=== PATIENT | female | born 1935 | race Asian ===

== ENCOUNTER 2019-06-10 09:54 | Inpatient (IN) | payer MEDICARE, OTHER ==
[~2019-06-10] VITALS: Ht 160 cm; Wt 55.2 kg
[2019-06-10] VITALS (33 sets, daily range): BP systolic 47–139; BP diastolic 22–79; PULSE 95–123; RESP 17–37; Ht 160 cm; Wt 55.2 kg
[~2019-06-10 09:54] MED LIST: ATOR20TA38 PO; DONE5TAB53 PO; PANT40TA3 PO; SAXA1TBM PO
[2019-06-10] MEDS ORDERED: CEFEPIME 2GM/50 ML (PMX) 50 ML IVPB STA (09:56)
[2019-06-10] MEDS ORDERED: SODIUM CHLORIDE 0.9% 1L BAG IV* STA (09:56)
[2019-06-10] MEDS ORDERED: IPRATROPIUM (NEB) 0.5 MG/2.5 ML AMP INH STA (09:57)
[2019-06-10] MEDS ORDERED: LEVALBUTEROL (NEB) 1.25 MG/0.5 ML AMP INH STA (09:57)
[2019-06-10] MEDS ORDERED: VANCOMYCIN 1 GM (PMX) 250 ML IVPB ONE (10:00)
[2019-06-10] MEDS ORDERED: ACETAMINOPHEN 650 MG SUPP PR ONE (11:00)
[2019-06-10] MEDS ORDERED: INSULIN LISPRO 100 UNIT/ML VIAL SC STA (11:05)
[2019-06-10] MEDS ORDERED: NA BICARBONATE 8.4% 50 ML SYG IV STA (11:05)
[2019-06-10] MEDS ORDERED: CA CHLORIDE 10% 10 ML SYRINGE IV STA (11:05)
[2019-06-10] MEDS ORDERED: morphine 2 MG INJ IV PRN (12:00)
[2019-06-10] MEDS ORDERED: NACL 0.9% 3 ML SYG IV SCH (12:00)
[2019-06-10] MEDS ORDERED: HYDROCODONE/APAP (5/325) TAB PO PRN (12:00)
[2019-06-10] MEDS ORDERED: ONDANSETRON 4 MG INJ IV PRN ×2 (12:00→13:00)
[2019-06-10] MEDS ORDERED: ASPIRIN 325 MG TAB PEG ONE (12:00)
[2019-06-10] MEDS ORDERED: ACETAMINOPHEN 650MG/20.3ML CUP NGT ONE (12:00)
[2019-06-10] MEDS: DOCUSATE SODIUM 100 MG CAP PO SCH (12:00)
[2019-06-10] MEDS ORDERED: VANCOMYCIN IV PER PHARMACY XX SCH (12:30)
--- NOTE | 2019-06-10 12:30 | CONS ---
Assessment/Plan Assessment/Plan Assessment/Plan (Daily) 1. acute Hypernatremia due to severe dehydration 2. acute Hyperkalemia due to FLOYD 3. acute kidney injury on CKD III due to ATN from sepsis and Prerenal azotemia 4 . Septic shock due to multifocal PNA 5. Acute hypoxic respiratory failure due to PNA and Septic shock On BIPAP 6. H/O severe dementia 7. H/O HTN 8. H/O HL 9. SNF resident 10. acute on chronic encephalopathy 11 h/o Dysphagia S/p G tube placement Plan: Seen in ED, Currently on BIPAP Continue IVF NS at 70 cc/hr if Na continues to rise then we will change it to 1/2 NS s/p IV abx cefepime and vancomycin in ED< currenlty on IV abx zosyn, Renally dose all abx and monitor electrolytes BIPAP as per pulmonary S/p Rx for hyperkalemia in ED, will monitor electorlytes and replace as needed pt is currenlty full Code, consider palliative care consult to discuss goals of care Thanks for consultation , will follow up Consultation Date/Type/Reason Admit Date/Time 06/10/2019 Date of Consultation: Jun 10, 2019 Type of Consult NEPHROLOGY Reason for Consultation Hyperkalemia, Hypernatremia, acute kidney injury Requesting Provider: MALINI GOMEZ Date/Time of Note DATE: 06/10/19 TIME: 12:30 Hx of Present Illness 84 Romansh speaking Female with a past medical history significant for end-stage dementia, being nonverbal, bedridden, hypertension, A. fib, COPD, diabetes me llitus, dyslipidemia who presents to [facility] from care home facility for worsening shortness of breath. Patient is baseline encephalopathic and being nonverbal according to family. Pt required BIPAP for acute hypoxic respiratory failure. very limited History is availabel from Patient and family . Subjective hx not possible: pt non-verbal, pt critical status Past Medical History Medical History: high cholesterol, hypertension, other (Dementia, Atrial fibrillation ) Home Meds Reported Medications Olanzapine* (Zyprexa*) 5 Mg Tablet, 5 MG GTB DAILY, #30 TAB 06/10/19 Polyethylene Glycol* (Miralax*) 17 Gm Powd.pack, 17 GM GTB DAILY, #30 PACKET 06/10/19 Benazepril Hcl* (Benazepril Hcl*) 10 Mg Tablet, 10 MG GTB DAILY, #30 TAB HOLD IF SBP<110 OR HR<60 06/10/19 Atorvastatin Calcium* (Atorvastatin Calcium*) 20 Mg Tablet, 20 MG GTB QHS, #30 TAB 06/10/19 Insulin Detemir (Levemir Flextouch) 100 Unit/1 Ml Insuln.pen, 8 UNIT SQ QHS, EA 06/10/19 Levetiracetam* (Keppra*) 500 Mg/5 Ml Solution, 5 ML GTB BID, BOTTLE 06/10/19 Fluvoxamine Maleate* (Luvox*) 50 Mg Tab, 25 MG GTB DAILY, TAB 06/10/19 Aspirin* (Aspirin* Chew) 81 Mg Tab.chew, 81 MG GTB DAILY, TAB.CHEW 06/10/19 Amiodarone Hcl* (Amiodarone Hcl*) 100 Mg Tablet, 100 MG GTB DAILY, #30 TAB HOLD FOR SBP<110 OR HR<60 06/10/19 Acetaminophen* (Acetaminophen* Susp) 325 Mg/10.15 Ml Solution, 20 ML GTB Q6H PRN for PAIN LEVEL 1-10/10, ML AND FEVER>101F 06/10/19 Discontinued Reported Medications Aspirin* (Aspirin* EC) 81 Mg Tablet.dr, 81 MG GTB DAILY, TAB 06/10/19 Medications Current Medications Sodium Chloride 1,000 ml @ 50 mls/hr Q20H IV ; Start 06/10/19 at 11:58; Stop 06/11/19 at 07:57 IV Flush (NS 3 ml) 3 ml PER PROTOCOL IV ; Start 06/10/19 at 12:00 Ondansetron HCl (Zofran Inj) 4 mg Q6H PRN IV NAUSEA/VOMITING; Start 06/10/19 at 12:00 Aspirin (Aspirin) 81 mg DAILY PEG ; Start 06/11/19 at 09:00 Acetaminophen (Tylenol Tab) 650 mg Q6H PRN PO .PAIN 1-3 OR TEMP; Start 06/10/19 at 12:00 Acetaminophen/ Hydrocodone Bitart ([place] (5/325)) 1 tab Q6H PRN PO .PAIN 4-6; Start 06/10/19 at 12:00 Morphine Sulfate (morphine) 2 mg Q4H PRN IV .PAIN 7-10; Start 06/10/19 at 12:00 Docusate Sodium (Colace) 100 mg Q12H PO ; Start 06/10/19 at 12:00 Heparin Sodium (Porcine) (Heparin (5000 Units/1ml)) 5,000 unit Q8 SC ; Start 06/10/19 at 14:00 Vancomycin HCl (Vanco Iv Per Pharmacy) VANCOMYCIN PER PHARMACY PER PROTOCOL XX ; Start 06/10/19 at 12:30; Status UNV Piperacillin Sod/ Tazobactam Sod 100 ml @ 200 mls/hr Q6 IVPB ; Start 06/10/19 at 18:00; Status UNV Miscellaneous Information (* Miscellaneous Pharmacy Order) Discontinue current oral sulfonylur... ONCE ONCE XX ; Start 06/10/19 at 12:30; Stop 06/10/19 at 12:31; Status UNV Diagnostic Test (Pha) (Accu-Chek) 1 ea 02 XX ; Start 06/11/19 at 02:00 Miscellaneous Information (* Miscellaneous Pharmacy Order) HYPOGLYCEMIA PROTOCOL w... ONCE ONCE XX ; Start 06/10/19 at 12:30; Stop 06/10/19 at 12:31; Status UNV Insulin Aspart (Novolog Insulin Pen) NOVOLOG *MILD* ALGORITHM Q4 SC ; Start 06/10/19 at 13:00; Status UNV Miscellaneous Information (* Miscellaneous Pharmacy Order) Discontinue all previ... ONCE ONCE XX ; Start 06/10/19 at 12:30; Stop 06/10/19 at 12:31; Status UNV Amiodarone HCl (Cordarone) 100 mg DAILY GTB ; Start 06/11/19 at 09:00; Status UNV Atorvastatin Calcium (Lipitor) 20 mg QHS GTB ; Start 06/10/19 at 21:00 Benazepril HCl (Lotensin) 10 mg DAILY GTB ; Start 06/11/19 at 09:00; Status UNV Fluvoxamine Maleate (Luvox) 25 mg DAILY GTB ; Start 06/11/19 at 09:00; Status UNV Levetiracetam (Keppra Liquid) 500 mg BID GTB ; Start 06/10/19 at 21:00; Status UNV Olanzapine (Zyprexa) 5 mg DAILY GTB ; Start 06/11/19 at 09:00; Status UNV Polyethylene Glycol (Miralax) 17 gm DAILY GTB ; Start 06/11/19 at 09:00 Allergies: Coded Allergies: No Known Allergy (Unverified , 06/10/19) Past Surgical History Past Surgical Hx: other (not available ) Family History Significant Family History: no pertinent family hx Social History Alcohol Use: none Drug Use: none Exam/Review of Systems Exam Vitals Vital Signs Date Temp Pulse Resp B/P (MAP) Pulse Ox O2 O2 Flow FiO2 Time Delivery Rate 06/10/19 100.0 12:18 06/10/19 132 23 113/72 99 BIPAP 11:56 (86) 06/10/19 100 10:54 06/10/19 15 10:25 Exam General: moderate distress on BIPAP Mentation: Patient is arousable but not oriented, not alert Eyes: MARKO, EOMI Neck: Supple, no JVD, no LAD Respiratory: Coarse to auscultation bilaterally, no wheezing Cardiovascular: S1 S2 tachycardia, no murmur Gastrointestinal: soft, NT, ND, Thin abdomen, BS+ Neurological: Moves all extremities spontaneously, only to noxious stimuli, no purposeful movement coordinated movement witnessed Skin: No new skin lesions, PEG tube site present Results Result Diagram: 06/10/19 1000 06/10/19 1000 Results 24hrs Laboratory Tests Test 06/10/19 09:56 06/10/19 10:00 06/10/19 10:19 06/10/19 11:42 Blood Gas Blood arterial Specimen Source Arterial Blood 06/10/2019 10:38: Date Drawn 45 AM Arterial Blood pH 7.497 H (Temp corrected) Arterial Blood 29.5 L pCO2 (Temp correct) Arterial Blood 71.6 L pO2 (Temp corrected) Arterial Blood 22.3 HCO3 Arterial Blood 0.2 Base Excess Arterial Blood 94.6 L Oxygen Saturation James Test N/A Arterial Blood Right Brachial Gas Puncture Site Arterial 0.6 Blood Carboxyhemo globin Arterial Blood 0.2 Methemoglobin Blood Gas A-a O2 611.9 H Differential Oxyhemoglobin 93.8 Percent Blood Gas 37.0 Temperature Blood Gas 20.0 Respiration Rate Blood Gas Actual 44 Respiration Rate Blood Gas MASK - BIPAP Modality FiO2 100.0 Blood Gas 10 Pressure Support Blood Gas 15/5 IPAP/EPAP Ratio Blood Gas TM Notified Whom Blood Gas 06/10/2019 10:46: Notified Time 46 AM White Blood Count 20.5 H Red Blood Count 5.03 Hemoglobin 15.2 Hematocrit 49.3 H Mean Corpuscular 98.0 Volume Mean Corpuscular 30.2 Hemoglobin Mean Corpuscular 30.8 L Hemoglobin Concen t Red Cell 16.2 H Distribution Width Platelet Count 234 Mean Platelet 12.1 H Volume Immature 0.600 H Granulocytes % Neutrophils % 88.0 H Lymphocytes % 5.2 L Monocytes % 5.8 Eosinophils % 0.0 Basophils % 0.4 Nucleated Red 0.0 Blood Cells % Immature 0.120 H Granulocytes # Neutrophils # 18.0 H Lymphocytes # 1.1 Monocytes # 1.2 H Eosinophils # 0.0 Basophils # 0.1 Nucleated Red 0.0 Blood Cells # Prothrombin Time 14.6 Prothrombin Time 1.1 Ratio INR International 1.13 Normalized Ratio Activated 25.2 Partial Thrombopl ast Time Sodium Level 152 H Potassium Level 5.2 H Chloride Level 114 H Carbon Dioxide 25 Level Anion Gap 13 Blood Urea 82 H Nitrogen Creatinine 1.08 H Est Glomerular Filtrat Rate mL/min Glucose Level 621 *H Calcium Level 9.8 Total Bilirubin 1.0 Direct Bilirubin 0.00 Indirect 1.0 Bilirubin Aspartate Amino 21 Transf (AST/SGOT) Alanine 8 L Aminotransferase (ALT/SGPT) Alkaline 76 Phosphatase Troponin I 0.137 *H B-Type 5960 H Natriuretic Peptide Total Protein 7.2 Albumin 3.6 Globulin 3.60 H Albumin/Globulin 1.00 Ratio Amylase Level 95 Lipase 148 POC Venous 4.3 *H Lactate Bedside Glucose 542 *H Medications Medication Current Medications Sodium Chloride 1,000 ml @ 50 mls/hr Q20H IV ; Start 06/10/19 at 11:58; Stop 06/11/19 at 07:57 IV Flush (NS 3 ml) 3 ml PER PROTOCOL IV ; Start 06/10/19 at 12:00 Ondansetron HCl (Zofran Inj) 4 mg Q6H PRN IV NAUSEA/VOMITING; Start 06/10/19 at 12:00 Aspirin (Aspirin) 81 mg DAILY PEG ; Start 06/11/19 at 09:00 Acetaminophen (Tylenol Tab) 650 mg Q6H PRN PO .PAIN 1-3 OR TEMP; Start 06/10/19 at 12:00 Acetaminophen/ Hydrocodone Bitart ([place] (5/325)) 1 tab Q6H PRN PO .PAIN 4-6; Start 06/10/19 at 12:00 Morphine Sulfate (morphine) 2 mg Q4H PRN IV .PAIN 7-10; Start 06/10/19 at 12:00 Docusate Sodium (Colace) 100 mg Q12H PO ; Start 06/10/19 at 12:00 Heparin Sodium (Porcine) (Heparin (5000 Units/1ml)) 5,000 unit Q8 SC ; Start 06/10/19 at 14:00 Vancomycin HCl (Vanco Iv Per Pharmacy) VANCOMYCIN PER PHARMACY PER PROTOCOL XX ; Start 06/10/19 at 12:30; Status UNV Piperacillin Sod/ Tazobactam Sod 100 ml @ 200 mls/hr Q6 IVPB ; Start 06/10/19 at 18:00; Status UNV Miscellaneous Information (* Miscellaneous Pharmacy Order) Discontinue current oral sulfonylur... ONCE ONCE XX ; Start 06/10/19 at 12:30; Stop 06/10/19 at 12 :31; Status UNV Diagnostic Test (Pha) (Accu-Chek) 1 ea 02 XX ; Start 06/11/19 at 02:00 Miscellaneous Information (* Miscellaneous Pharmacy Order) HYPOGLYCEMIA PROTOCOL w... ONCE ONCE XX ; Start 06/10/19 at 12:30; Stop 06/10/19 at 12:31; Status UNV Insulin Aspart (Novolog Insulin Pen) NOVOLOG *MILD* ALGORITHM Q4 SC ; Start 06/10/19 at 13:00; Status UNV Miscellaneous Information (* Miscellaneous Pharmacy Order) Discontinue all previ... ONCE ONCE XX ; Start 06/10/19 at 12:30; Stop 06/10/19 at 12:31; Status UNV Amiodarone HCl (Cordarone) 100 mg DAILY GTB ; Start 06/11/19 at 09:00; Status UNV Atorvastatin Calcium (Lipitor) 20 mg QHS GTB ; Start 06/10/19 at 21:00 Benazepril HCl (Lotensin) 10 mg DAILY GTB ; Start 06/11/19 at 09:00; Status UNV Fluvoxamine Maleate (Luvox) 25 mg DAILY GTB ; Start 06/11/19 at 09:00; Status UNV Levetiracetam (Keppra Liquid) 500 mg BID GTB ; Start 06/10/19 at 21:00; Status UNV Olanzapine (Zyprexa) 5 mg DAILY GTB ; Start 06/11/19 at 09:00; Status UNV Polyethylene Glycol (Miralax) 17 gm DAILY GTB ; Start 06/11/19 at 09:00 GERMAN FELIX MD Jun 10, 2019 12:30
[2019-06-10] MEDS ORDERED: ACETAMINOPHEN 325 MG TAB PO PRN (13:00)
[2019-06-10] MEDS ORDERED: LIDOCAINE 1% (MPF) 5 ML VIAL SC ONE (13:00)
[2019-06-10] MEDS ORDERED: INSULIN ASPART [NOVOLOG] 3 ML PEN SC SCH (13:00)
[2019-06-10] MEDS ORDERED: GLUCOSE GEL 15 GRAM TUBE BUCCAL PRN (14:00)
[2019-06-10] MEDS ORDERED: GLUCOSE GEL 15 GRAM TUBE PO PRN ×2 (14:00)
[2019-06-10] MEDS ORDERED: GLUCAGON 1 MG INJ IM PRN (14:00)
[2019-06-10] MEDS ORDERED: HEPARIN 5,000 UNIT/1 ML VIAL SC SCH (14:00)
[2019-06-10] MEDS ORDERED: INSULIN REGULAR, HUMAN 100 UNIT/1 ML 3ML VIAL IV STA (14:14)
[2019-06-10] MEDS ORDERED: NORepinephrine 8MG/250 ML (PMX 250 ML IV STA (14:29)
--- NOTE | 2019-06-10 14:29 | ERD ---
ER Documentation Chief Complaint Chief Complaint low o2 sat at facility. warm to touch; tachycardic HPI This is an 84-year-old female that presented to the emergency department from [facility]. 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 EMS stated that at the facility they noticed that the patient appeared to have a sudden onset of difficulty in breathing. She felt warm to the touch. She was tachycardic. She was on a continuous pulse oximeter that indicated hypoxia at 80%. The patient is a full code. The patient has a past medical history of hyper pressure and also is on Keppra. There is no seizure activity according to nursing staff. ROS All systems reviewed and are negative except as per history of present illness. Medications Home Meds Reported Medications Olanzapine* (Zyprexa*) 5 Mg Tablet, 5 MG GTB DAILY, #30 TAB 06/10/19 Polyethylene Glycol* (Miralax*) 17 Gm Powd.pack, 17 GM GTB DAILY, #30 PACKET 06/10/19 Benazepril Hcl* (Benazepril Hcl*) 10 Mg Tablet, 10 MG GTB DAILY, #30 TAB HOLD IF SBP<110 OR HR<60 06/10/19 Atorvastatin Calcium* (Atorvastatin Calcium*) 20 Mg Tablet, 20 MG GTB QHS, #30 TAB 06/10/19 Insulin Detemir (Levemir Flextouch) 100 Unit/1 Ml Insuln.pen, 8 UNIT SQ QHS, EA 06/10/19 Levetiracetam* (Keppra*) 500 Mg/5 Ml Solution, 5 ML GTB BID, BOTTLE 06/10/19 Fluvoxamine Maleate* (Luvox*) 50 Mg Tab, 25 MG GTB DAILY, TAB 06/10/19 Aspirin* (Aspirin* Chew) 81 Mg Tab.chew, 81 MG GTB DAILY, TAB.CHEW 06/10/19 Amiodarone Hcl* (Amiodarone Hcl*) 100 Mg Tablet, 100 MG GTB DAILY, #30 TAB HOLD FOR SBP<110 OR HR<60 06/10/19 Acetaminophen* (Acetaminophen* Susp) 325 Mg/10.15 Ml Solution, 20 ML GTB Q6H PRN for PAIN LEVEL 1-10/10, ML AND FEVER>101F 06/10/19 Discontinued Reported Medications Aspirin* (Aspirin* EC) 81 Mg Tablet.dr, 81 MG GTB DAILY, TAB 06/10/19 Allergies Allergies: Coded Allergies: No Known Allergy (Unverified , 06/10/19) Physical Exam Vitals Vital Signs Date Temp Pulse Resp B/P (MAP) Pulse Ox O2 O2 Flow FiO2 Time Delivery Rate 06/10/19 112 26 82/60 (67) 97 BIPAP 13:45 06/10/19 99.8 114 20 103/71 100 BIPAP 13:30 (82) 06/10/19 114 100 100 13:04 06/10/19 100.7 121 26 100/70 99 BIPAP 12:30 (80) 06/10/19 100.0 12:18 06/10/19 132 23 113/72 99 BIPAP 11:56 (86) 06/10/19 126 38 99 100 10:54 06/10/19 129 32 88/65 (73) 95 BIPAP 10:34 06/10/19 102.1 130 33 92/67 (75) 95 10:25 06/10/19 Bag Valve 15 10:25 Mask Physical Exam Constitutional:Well-developed. Cachectic. HEENT:Normocephalic. Atraumatic.Pupils were 2mm equal round reactive to light. Moist mucous membranes.No tonsillar exudates. Neck: No nuchal rigidity. No lymphadenopathy. No posterior cervical spine tenderness or step-offs. Respiratory: Patient using accessory muscles of respiration. Mild wheezing bilaterally. Decreased breath sounds in the right lower lung base. Cardiovascular: Tachycardic with regular rhythm.No murmurs. No rubs were appreciated.S1, S2 normal. Distal pulses are palpable 2+ bilaterally. GI: Abdomen was soft. Nontender with PEG tube in place. Non Distended. No pulsatile abdominal masses or bruits. No rebound. No guarding. Bowel sounds were present and normal. Muscle skeletal: Muscle atrophy of the bilateral lower extremities with paralysis of the lower extremity Skin: Warm to the touch. No petechia, no purpura. No lesions on the palms or the soles of the feet. No maculopapular rash. NEURO: Patient does not withdraw to pain. Patient opens eyes in response to pain. Patient is nonverbal. Patient is bedbound. According to nursing staff this is the patient's baseline mental status. Result Diagram: 06/10/19 1000 06/10/19 1000 Results 24 hrs Laboratory Tests Test 06/10/19 09:56 06/10/19 10:00 06/10/19 10:19 06/10/19 11:42 Blood Gas Blood arterial Specimen Source Arterial Blood 06/10/2019 10:38: Date Drawn 45 AM Arterial Blood 7.497 pH (Temp corrected) Arterial Blood 29.5 mmhg pCO2 (Temp correct) Arterial Blood 71.6 mmHG pO2 (Temp corrected) Arterial Blood 22.3 mmol/L HCO3 Arterial Blood 0.2 mmol/L Base Excess Arterial Blood 94.6 mmHG Oxygen Saturatio n James Test N/A Arterial Blood Right Brachial Gas Puncture Site Arterial 0.6 % Blood Carboxyhem oglobin Arterial Blood 0.2 % Methemoglobin Blood Gas A-a O2 611.9 mmHg Differential Oxyhemoglobin 93.8 % Percent Blood Gas 37.0 C Temperature Blood Gas 20.0 Respiration Rate Blood Gas Actual 44 Respiration Rate Blood Gas MASK - BIPAP Modality FiO2 100.0 % Blood Gas 10 Pressure Support Blood Gas 15/5 IPAP/EPAP Ratio Blood Gas TM Notified Whom Blood Gas 06/10/2019 10:46: Notified Time 46 AM White Blood 20.5 10^3/ul Count Red Blood Count 5.03 10^6/ul Hemoglobin 15.2 g/dl Hematocrit 49.3 % Mean Corpuscular 98.0 fl Volume Mean Corpuscular 30.2 pg Hemoglobin Mean Corpuscular 30.8 g/dl Hemoglobin Christina nt Red Cell 16.2 % Distribution Width Platelet Count 234 10^3/UL Mean Platelet 12.1 fl Volume Immature 0.600 % Granulocytes % Neutrophils % 88.0 % Lymphocytes % 5.2 % Monocytes % 5.8 % Eosinophils % 0.0 % Basophils % 0.4 % Nucleated Red 0.0 /100WBC Blood Cells % Immature 0.120 10^3/ul Granulocytes # Neutrophils # 18.0 10^3/ul Lymphocytes # 1.1 10^3/ul Monocytes # 1.2 10^3/ul Eosinophils # 0.0 10^3/ul Basophils # 0.1 10^3/ul Nucleated Red 0.0 10^3/ul Blood Cells # Prothrombin Time 14.6 Sec Prothrombin Time 1.1 Ratio INR 1.13 International Normalized Ratio Activated 25.2 Sec Partial Thrombop last Time Sodium Level 152 mmol/L Potassium Level 5.2 mmol/L Chloride Level 114 mmol/L Carbon Dioxide 25 mmol/L Level Anion Gap 13 Blood Urea 82 mg/dl Nitrogen Creatinine 1.08 mg/dl Est Glomerular mL/min Filtrat Rate mL/min Glucose Level 621 mg/dl Calcium Level 9.8 mg/dl Total Bilirubin 1.0 mg/dl Direct Bilirubin 0.00 mg/dl Indirect 1.0 mg/dl Bilirubin Aspartate Amino 21 IU/L Transf (AST/SGOT ) Alanine 8 IU/L Aminotransferase (ALT/SGPT) Alkaline 76 IU/L Phosphatase Troponin I 0.137 ng/ml B-Type 5960 PG/ML Natriuretic Peptide Total Protein 7.2 g/dl Albumin 3.6 g/dl Globulin 3.60 g/dl Albumin/Globulin 1.00 Ratio Amylase Level 95 U/L Lipase 148 U/L POC Venous 4.3 mmol/L Lactate Bedside Glucose 542 mg/dL Test 06/10/19 12:40 Urine Color YELLOW Urine Clarity SLIGHTLY CLOUDY Urine pH 6.0 Urine Specific 1.017 [place] Urine Ketones TRACE mg/dL Urine Nitrite NEGATIVE mg/dL Urine Bilirubin NEGATIVE mg/dL Urine NEGATIVE mg/dL Urobilinogen Urine Leukocyte NEGATIVE [place]/ul Esterase Urine 0 /HPF Microscopic RBC Urine 4 /HPF Microscopic WBC Urine Bacteria FEW /HPF Urine Hemoglobin NEGATIVE mg/dL Urine Glucose 3+ mg/dL Urine Total NEGATIVE mg/dl Protein Lactic Acid 6.9 mmol/L Level Current Medications Medications Dose Sig/Frankie Start Time Status Last (Trade) Ordered Route PRN Stop Time Admin Dose Reason Admin Sodium 2,400 ml BOLUS OVER 2 06/10/19 DC 06/10/19 Chloride HOURS STAT 09:56 10:24 (NS) IV* 06/10/19 09:58 Cefepime HCl 50 ml @ ONCE STAT 06/10/19 DC 06/10/19 100 mls/hr IVPB 09:56 10:23 06/10/19 10:25 Vancomycin 250 ml @ ONCE ONCE 06/10/19 DC 06/10/19 HCl 125 mls/hr IVPB 10:00 11:28 06/10/19 11:59 5 mg ONCE STAT 06/10/19 DC 06/10/19 Levalbuterol INH 09:57 10:53 (Xopenex 06/10/19 09:58 Neb) Ipratropium 1 mg ONCE STAT 06/10/19 DC 06/10/19 [place] INH 09:57 10:53 (Atrovent 06/10/19 09:58 0.02% (Neb)) 650 mg ONCE ONCE 06/10/19 DC 06/10/19 Acetaminophen OR 11:00 12:18 (Tylenol 06/10/19 11:37 Supp) Insulin 10 unit ONCE STAT 06/10/19 DC 06/10/19 Human SC 11:05 11:51 Lispro 06/10/19 11:08 (Humalog) Sodium 50 ml ONCE STAT 06/10/19 DC 06/10/19 Bicarbonate IV 11:05 11:26 (Na Bicarb 06/10/19 11:08 8.4% Syg) Calcium 1,000 mg ONCE STAT 06/10/19 DC 06/10/19 Chloride IV 11:05 11:26 (Ca Chloride 06/10/19 11:08 10% Syg) Aspirin 325 mg ONCE ONCE 06/10/19 DC (Aspirin) PEG 12:00 06/10/19 12:01 650 mg ONCE ONCE 06/10/19 DC Acetaminophen NGT 12:00 (Tylenol 06/10/19 12:01 Liquid) Sodium 1,000 ml @ Q20H IV 06/10/19 Chloride 50 mls/hr 11:58 06/11/19 07:57 IV Flush 3 ml PER 06/10/19 (NS 3 ml) PROTOCOL IV 12:00 Ondansetron 4 mg Q6H PRN 06/10/19 HCl (Zofran IV 12:00 Inj) NAUSEA/VOMITI NG Aspirin 81 mg DAILY PEG 06/11/19 (Aspirin) 09:00 650 mg Q6H PRN 06/10/19 Acetaminophen PO .PAIN 1-3 12:00 (Tylenol OR TEMP Tab) 1 tab Q6H PRN 06/10/19 Acetaminophen PO .PAIN 4-6 12:00 / Hydrocodone Bitart ([place] (5/325)) Morphine 2 mg Q4H PRN 06/10/19 Sulfate IV .PAIN 12:00 (morphine) 7-10 Docusate 100 mg Q12H PO 06/10/19 Sodium 12:00 (Colace) Heparin 5,000 unit Q8 SC 06/10/19 Sodium 14:00 (Porcine) (Heparin (5000 Units/1ml)) Vancomycin VANCOMYCIN PER 06/10/19 HCl (Vanco PER PHARMACY PROTOCOL XX 12:30 Iv Per Pharmacy) Piperacillin 100 ml @ Q6 IVPB 06/10/19 Sod/ 200 mls/hr 18:00 Tazobactam Sod Discontinue ONCE ONCE 06/10/19 DC Miscellaneous current oral XX 12:30 sulfonylur... 06/10/19 13:11 Information (* Miscellaneous Pharmacy Order) Diagnostic 1 ea 02 XX 06/11/19 Test (Pha) 02:00 (Accu-Chek) ONCE ONCE 06/10/19 DC Miscellaneous HYPOGLYCEMIA XX 12:30 PROTOCOL 06/10/19 13:11 Information w... (* Miscellaneous Pharmacy Order) Insulin NOVOLOG Q4 SC 06/10/19 DC Aspart *MILD* 13:00 (Novolog ALGORITHM 06/10/19 13:45 Insulin Pen) Discontinue ONCE ONCE 06/10/19 DC Miscellaneous all previ... XX 12:30 06/10/19 13:11 Information (* Miscellaneous Pharmacy Order) Amiodarone 100 mg DAILY GTB 06/11/19 HCl 09:00 (Cordarone) 20 mg QHS GTB 06/10/19 Atorvastatin 21:00 Calcium (Lipitor) Benazepril 10 mg DAILY GTB 06/11/19 HCl 09:00 (Lotensin) Fluvoxamine 25 mg DAILY GTB 06/11/19 Maleate 09:00 (Luvox) 500 mg BID GTB 06/10/19 Levetiracetam 21:00 (Keppra Liquid) Olanzapine 5 mg DAILY GTB 06/11/19 (Zyprexa) 09:00 17 gm DAILY GTB 06/11/19 Polyethylene 09:00 Glycol (Miralax) Ondansetron 4 mg ER BRIDGE 06/10/19 HCl (Zofran PRN IV 13:00 Inj) NAUSEA/VOMITI 06/11/19 12:59 NG 650 mg ER BRIDGE 06/10/19 Acetaminophen PRN PO 13:00 (Tylenol .MILD PAIN 06/11/19 12:59 Tab) 1-3 OR TEMP Lidocaine 5 ml ONCE ONCE 06/10/19 DC (Xylocaine SC 13:00 1% (Mpf)) 06/10/19 13:01 Insulin (Adult SC Q4 SC 06/10/19 Aspart Insulin - 17:00 (Novolog Mild Insulin Pen) Algorithm)... 1 ea NOTE XX 06/10/19 Miscellaneous 14:00 Information Glucose 15 gm Q15M PRN 06/10/19 (Glutose) PO DECREASED 14:00 GLUCOSE Glucose 22.5 gm Q15M PRN 06/10/19 (Glutose) PO DECREASED 14:00 GLUCOSE Dextrose 25 ml Q15M PRN 06/10/19 (D50w IV DECREASED 14:00 Syringe) GLUCOSE Dextrose 50 ml Q15M PRN 06/10/19 (D50w IV DECREASED 14:00 Syringe) GLUCOSE Glucagon 1 mg Q15M PRN 06/10/19 (Glucagen) IM DECREASED 14:00 GLUCOSE Glucose 15 gm Q15M PRN 06/10/19 (Glutose) BUCCAL 14:00 DECREASED GLUCOSE Procedures/MDM This patient presented to the emergency department febrile and respiratory distress. The patient was immediately placed on a hall monitor continuous pulse oximetry and IV access was severed by nursing staff. The patient was placed on noninvasive mechanical ventilation through BiPAP with improvement of her pulse oximetry to 100%. Her tachycardia had improved and she did receive antipyretics through her PEG tube and cooling measures. On the chest radiograph on reviewed myself into the following: Patchy right basilar and left upper and left lower lobe airspace opacities, suggestive of pneumonia. Patient's infectious symptoms have not stabilized and the patient is at risk of rapid decompensation. The patient will be admitted for careful hydration, antibiotic therapy, and infectious source control. There is no that the antibiotics that have been given initially refer sepsis of unclear etiology. However once the chest radiograph was obtained I did feel the patient's source of infection was from pneumonia. Patient was placed on noninvasive mechanical ventilation with BiPAP and nebulizer treatments for her respiratory distress which significantly improved. She was no longer using accessory muscles of respiration. Severe Sepsis Assessment: Infectious Source: Pneumonia End organ damage indicated by: Lactate > 2.0 mmol/L Hypotension( SBP < 90 or >40 mmHG drop or MAP < 65) Acute Resp Failure (sat < 92% w/o oxygen) Severe Sepsis Managment: Blood Cultures X 2 before broad spectrum antibiotics initiated within 3 hours of recognition. 30 ml/kg NS bolus Completed Initial Lactate: 4.3 Repeat Lactate 6.9 12 Lead EKG tracing ordered and reviewed by myself showed: Sinus tachycardia 131 bpm and no arrhythmia. OR interval normal. QRS duration normal. No ST segment elevation No ST segment depression. No changes consistent with acute ischemia. Septic Shock Assessment (1 hour post 30 ml/kg fluid bolus): Hypotension (SBP < 90 or 40 mmHg drop, MAP < 65): No Lactic acid > 4.0 Yes Perfusion Reassessment for Septic Shock: Temp99.8, Pulse 114, RR 20, BP 103/71 Heart Exam: Tachycardic Lung Exam: No Crackles Capillary Refill: Delayed Peripheral Pulses: Radially present Skin: Normal Hypotensive Treatment (not required for isolated lactic acid elevation): Comfort Care: No Central LIne: PICC line placed Vasopressor started: norepinephrine I considered further perfusion assessment with CVP measurement, SCVO2, bedside ultrasound volume assessment, passive leg raise, trial of further fluid bolus. And preceded with vasopressors. The patient also had acute kidney injury likely prerenal from dehydration. BUN was 82 and creatinine was 1.08. This will be treated with IV fluids as well as her hyponatremia. Her blood glucose was elevated but there is no evidence of ketosis. She received subcutaneous insulin with only minimal improvement with her blood glucose and therefore was given IV insulin. The patient was also hyperkalemic and treated for hyperkalemia given an amp of bicarb calcium chloride Kayexalate and also nebulizer treatments of albuterol. Lasix was not given as the patient was hypotensive. The patient will be admitted to the hospitalist in serious condition to the intensive care under the care of the hospitalist. The patient's troponin was elevated and did receive aspirin through the PEG tube. Dr. Jimenez from cardiology will kindly be consulted. The patient's BNP was elevated however I felt this was more result of her renal failure versus congestive heart failure. Critical Care: Time: 85 minutes Treatments/Evaluations: Close monitoring and treatment of unstable vital signs, cardiorespiratory, and neurologic status, while maintaining tight balance of fluid, respiratory, and cardiac interventions. Time does not include performing any of the above billable procedures. Departure Diagnosis: Primary Impression: Septic shock Additional Impressions: Renal failure (ARF), acute on chronic Acute renal failure type: unspecified Chronic kidney disease stage: unspecified stage Qualified Codes: N17.9 - Acute kidney failure, unspecified; N18.9 - Chronic kidney disease, unspecified Pneumonia Pneumonia type: due to unspecified organism Laterality: bilateral Lung location: upper lobe of lung Qualified Codes: J18.1 - Lobar pneumonia, unspecified organism Hyperglycemia without ketosis Condition: Serious HAWA JOSEPH MD Jun 10, 2019 14:14
[2019-06-10] MEDS ORDERED: NORepinephrine 8MG/250 ML (PMX 250 ML IV SCH (15:00)
[2019-06-10] MEDS: SOD CHLORIDE 0.9% 1,000 ML IV SCH (15:15)
[2019-06-10] MEDS ORDERED: ALBUTEROL/IPRATROPIUM (NEB) 3 ML AMP HHN PRN (15:30)
[2019-06-10] MEDS ORDERED: DEXTROSE 50% 50 ML SYRINGE IV PRN ×2 (15:30)
--- NOTE | 2019-06-10 15:31 | HP ---
Date/Time of Note Date/Time of Note DATE: 06/10/19 TIME: 15:30 Assessment/Plan VTE Prophylaxis Pharmacological prophylaxis: other Lines/Catheters IV Catheter Type (from Nrsg): PICC Line Central line still needed: Yes Urinary Cath still in place: Yes Reason Cath still needed: terminal illness/intractable pain Assessment/Plan Hospital Course History of present illness Patient is a elderly Occitan female with a past medical history significant for end-stage dementia, being nonverbal, bedridden, hypertension, A. fib, COPD, diabetes mellitus, dyslipidemia who presents to [facility] from assisted facility for worsening shortness of breath. Pulse ox initially was 80%, currently patient is on BiPAP. Patient is baseline encephalopathic and being nonverbal according to family. Further HPI cannot be given as patient mental status is severely compromised chronically. Objective Physical exam General: Patient is laying in bed with BiPAP Mentation: Patient is arousable but not oriented, not alert Head: Normocephalic atraumatic Eyes: EOMI, pupils reactive to light Neck: Supple, nontender, midline Respiratory: Coarse to auscultation bilaterally Cardiovascular: Tachycardic rate, no obvious murmurs Gastrointestinal: non-tender to palpation, bowel sounds heard. Neurological: Moves all extremities spontaneously, only to noxious stimuli, no purposeful movement coordinated movement witnessed Skin: No new skin lesions, PEG tube site present Assessment and plan Multifocal pneumonia -Broad-spectrum antibiotic to cover aspiration -Infectious disease consulted -Breathing treatments as needed -Pulmonology also on board Acute hypoxic respiratory failure -Likely secondary to above pneumonia -Pulmonology on board -Continue IV antibiotic Septic shock versus severe sepsis -Patient's blood pressure is borderline after IV bolus, will use pressors as needed -Patient has PICC line -IV antibiotic -Pancultured Non-ST elevated ND -Very mild elevation -Dr. Jimenez, cardiology has been consulted -Continue to trend troponin -Aspirin, statin, Lovenox as needed per cardiology recommendations Electrolyte derangement -Patient likely volume depleted, nephrology on board -IV fluids per nephrology recommendations Chronic dysphasia -Patient has PEG tube -Monitor -Continue tube feeds Hyperglycemia -Insulin drip while in the ICU -Continue fluids as necessary Chronic encephalopathy -We will obtain CT of the brain to ensure no other etiology -Monitor closely Hypertension -Hold hypertensive medications for now due to hypotension A. fib -Continue home meds, cardiology on board dyslipidemia -Continue home meds Mood disorder -Continue home meds Chronic kidney disease -Very mild, nephrology on board Failure to thrive -We will have discussion with patient's family tomorrow on goals of care Disposition -Admit to the ICU for septic shock, continue IV antibiotics and breathing treatments. Result Diagram: 06/10/19 1000 06/10/19 1000 Results 24hrs Laboratory Tests Test 06/10/19 09:56 06/10/19 10:00 06/10/19 10:19 06/10/19 11:42 Blood Gas Blood arterial Specimen Source Arterial Blood 06/10/2019 10:38: Date Drawn 45 AM Arterial Blood pH 7.497 H (Temp corrected) Arterial Blood 29.5 L pCO2 (Temp correct) Arterial Blood 71.6 L pO2 (Temp corrected) Arterial Blood 22.3 HCO3 Arterial Blood 0.2 Base Excess Arterial Blood 94.6 L Oxygen Saturation James Test N/A Arterial Blood Right Brachial Gas Puncture Site Arterial 0.6 Blood Carboxyhemo globin Arterial Blood 0.2 Methemoglobin Blood Gas A-a O2 611.9 H Differential Oxyhemoglobin 93.8 Percent Blood Gas 37.0 Temperature Blood Gas 20.0 Respiration Rate Blood Gas Actual 44 Respiration Rate Blood Gas MASK - BIPAP Modality FiO2 100.0 Blood Gas 10 Pressure Support Blood Gas 15/5 IPAP/EPAP Ratio Blood Gas TM Notified Whom Blood Gas 06/10/2019 10:46: Notified Time 46 AM White Blood Count 20.5 H Red Blood Count 5.03 Hemoglobin 15.2 Hematocrit 49.3 H Mean Corpuscular 98.0 Volume Mean Corpuscular 30.2 Hemoglobin Mean Corpuscular 30.8 L Hemoglobin Concen t Red Cell 16.2 H Distribution Width Platelet Count 234 Mean Platelet 12.1 H Volume Immature 0.600 H Granulocytes % Neutrophils % 88.0 H Lymphocytes % 5.2 L Monocytes % 5.8 Eosinophils % 0.0 Basophils % 0.4 Nucleated Red 0.0 Blood Cells % Immature 0.120 H Granulocytes # Neutrophils # 18.0 H Lymphocytes # 1.1 Monocytes # 1.2 H Eosinophils # 0.0 Basophils # 0.1 Nucleated Red 0.0 Blood Cells # Prothrombin Time 14.6 Prothrombin Time 1.1 Ratio INR International 1.13 Normalized Ratio Activated 25.2 Partial Thrombopl ast Time Sodium Level 152 H Potassium Level 5.2 H Chloride Level 114 H Carbon Dioxide 25 Level Anion Gap 13 Blood Urea 82 H Nitrogen Creatinine 1.08 H Est Glomerular Filtrat Rate mL/min Glucose Level 621 *H Calcium Level 9.8 Total Bilirubin 1.0 Direct Bilirubin 0.00 Indirect 1.0 Bilirubin Aspartate Amino 21 Transf (AST/SGOT) Alanine 8 L Aminotransferase (ALT/SGPT) Alkaline 76 Phosphatase Troponin I 0.137 *H B-Type 5960 H Natriuretic Peptide Total Protein 7.2 Albumin 3.6 Globulin 3.60 H Albumin/Globulin 1.00 Ratio Amylase Level 95 Lipase 148 POC Venous 4.3 *H Lactate Bedside Glucose 542 *H Test 06/10/19 12:40 06/10/19 15:09 Urine Color YELLOW Urine Clarity SLIGHTLY CLOUDY A Urine pH 6.0 Urine Specific 1.017 [place] Urine Ketones TRACE A Urine Nitrite NEGATIVE Urine Bilirubin NEGATIVE Urine NEGATIVE Urobilinogen Urine Leukocyte NEGATIVE Esterase Urine Microscopic 0 RBC Urine Microscopic 4 WBC Urine Bacteria FEW A Urine Hemoglobin NEGATIVE Urine Glucose 3+ H Urine Total NEGATIVE Protein Lactic Acid Level 6.9 *H Bedside Glucose 341 H HPI/ROS Admit Date/Time Admit Date/Time 06/10/2019 PMH/Family/Social Past Medical History Medications Current Medications Sodium Chloride 1,000 ml @ 70 mls/hr [id number] IV Last administered on 06/10/19at 15:15; Admin Dose 70 MLS/HR; Start 06/10/19 at 11:58; Stop 06/11/19 at 17:25 IV Flush (NS 3 ml) 3 ml PER PROTOCOL IV ; Start 06/10/19 at 12:00 Ondansetron HCl (Zofran Inj) 4 mg Q6H PRN IV NAUSEA/VOMITING; Start 06/10/19 at 12:00 Aspirin (Aspirin) 81 mg DAILY PEG ; Start 06/11/19 at 09:00 Acetaminophen (Tylenol Tab) 650 mg Q6H PRN PO .PAIN 1-3 OR TEMP; Start 06/10/19 at 12:00 Acetaminophen/ Hydrocodone Bitart ([place] (5/325)) 1 tab Q6H PRN PO .PAIN 4-6; Start 06/10/19 at 12:00 Morphine Sulfate (morphine) 2 mg Q4H PRN IV .PAIN 7-10; Start 06/10/19 at 12:00 Docusate Sodium (Colace) 100 mg Q12H PO ; Start 06/10/19 at 12:00 Heparin Sodium (Porcine) (Heparin (5000 Units/1ml)) 5,000 unit Q8 SC Last administered on 06/10/19at 15:15; Admin Dose 5,000 UNIT; Start 06/10/19 at 14:00 Vancomycin HCl (Vanco Iv Per Pharmacy) VANCOMYCIN PER PHARMACY PER PROTOCOL XX ; Start 06/10/19 at 12:30 Piperacillin Sod/ Tazobactam Sod 100 ml @ 200 mls/hr Q6 IVPB ; Start 06/10/19 at 18:00 Diagnostic Test (Pha) (Accu-Chek) 1 ea 02 XX ; Start 06/11/19 at 02:00 Amiodarone HCl (Cordarone) 100 mg DAILY GTB ; Start 06/11/19 at 09:00 Atorvastatin Calcium (Lipitor) 20 mg QHS GTB ; Start 06/10/19 at 21:00 Fluvoxamine Maleate (Luvox) 25 mg DAILY GTB ; Start 06/11/19 at 09:00 Levetiracetam (Keppra Liquid) 500 mg BID GTB ; Start 06/10/19 at 21:00 Olanzapine (Zyprexa) 5 mg DAILY GTB ; Start 06/11/19 at 09:00 Polyethylene Glycol (Miralax) 17 gm DAILY GTB ; Start 06/11/19 at 09:00 Ondansetron HCl (Zofran Inj) 4 mg ER BRIDGE PRN IV NAUSEA/VOMITING; Start 05/26 05/14 at 13:00; Stop 06/11/19 at 12:59 Acetaminophen (Tylenol Tab) 650 mg ER BRIDGE PRN PO .MILD PAIN 1-3 OR TEMP; Start 06/10/19 at 13:00; Stop 06/11/19 at 12:59 Miscellaneous Information 1 ea NOTE XX ; Start 06/10/19 at 14:00 Glucose (Glutose) 15 gm Q15M PRN PO DECREASED GLUCOSE; Start 06/10/19 at 14:00 Glucose (Glutose) 22.5 gm Q15M PRN PO DECREASED GLUCOSE; Start 06/10/19 at 14:00 Dextrose (D50w Syringe) 25 ml Q15M PRN IV DECREASED GLUCOSE; Start 06/10/19 at 14:00 Dextrose (D50w Syringe) 50 ml Q15M PRN IV DECREASED GLUCOSE; Start 06/10/19 at 14:00 Glucagon (Glucagen) 1 mg Q15M PRN IM DECREASED GLUCOSE; Start 06/10/19 at 14:00 Glucose (Glutose) 15 gm Q15M PRN BUCCAL DECREASED GLUCOSE; Start 06/10/19 at 14:00 Norepinephrine 250 ml @ 7.5 mls/hr ONCE STAT IV ; Start 06/10/19 at 14:29; Stop 06/11/19 at 23:48 Norepinephrine 250 ml @ 1.875 mls/ hr TITRATE IV ; Start 06/10/19 at 15:00; Status UNV Miscellaneous Information (* Miscellaneous Pharmacy Order) Discontinue all previ... PROTOCOL ONCE XX ; Start 06/10/19 at 15:30; Stop 06/10/19 at 15:31; Status UNV Diagnostic Test (Pha) (Accu-Chek) 1 ea Q1H XX ; Start 06/10/19 at 15:30; Status UNV Insulin Human Regular 100 unit/ Sodium Chloride 100 ml @ 0 mls/hr PER PROTOCOL IV ; Start 06/10/19 at 15:30; Status UNV Miscellaneous Information (* Miscellaneous Pharmacy Order) Treatment of Hypoglycemia: 1.BG 51... Per protocol XX ; Start 06/10/19 at 15:30; Status UNV Dextrose (D50w Syringe) 25 ml Q15M PRN IV .DECREASED GLUCOSE; Start 06/10/19 at 15:30 Dextrose (D50w Syringe) 50 ml Q15M PRN IV .DECREASED GLUCOSE; Start 06/10/19 at 15:30 Albuterol/ Ipratropium (Duoneb) 3 ml Q6HWA RESP THERAPY HHN ; Start 06/10/19 at 20:00; Status UNV Albuterol/ Ipratropium (Duoneb) 3 ml Q2H RESP THERAPY PRN HHN wheezing; Start 06/10/19 at 15:30; Status UNV Budesonide (Pulmicort (Neb)) 0.5 mg BID RESP THERAPY HHN ; Start 06/10/19 at 2 0:00; Status UNV Coded Allergies: No Known Allergy (Unverified , 06/10/19) Social History Smoking Status: Never smoker Exam/Review of Systems Vital Signs Vitals Vital Signs Date Temp Pulse Resp B/P (MAP) Pulse Ox O2 O2 Flow FiO2 Time Delivery Rate 06/10/19 112 26 82/60 (41) 97 BIPAP 13:45 06/10/19 99.8 13:30 06/10/19 100 13:04 06/10/19 15 10:25 MALINI GOMEZ Jun 10, 2019 15:31
[2019-06-10] MEDS: ACCU-CHEK XX SCH ×3 (16:30→18:08)
[2019-06-10] MEDS ORDERED: INSULIN HUMAN REGULAR 100 UNIT in SOD CHLORIDE 0.9% 99 ML IV SCH (17:00)
[2019-06-10] MEDS ORDERED: Insulin NOVOLOG SS MILD Algorithm (NPO/TPN/ENTERAL FEEDS) SC SCH (17:00)
--- NOTE | 2019-06-10 17:13 | CONS ---
DATE OF ADMISSION: 06/10/2019 DATE OF CONSULTATION: 06/10/2019 TYPE OF CONSULTATION: Infectious disease. REASON FOR CONSULTATION: Antibiotic management. HISTORY OF PRESENT ILLNESS: Sixto Roberts is an 84-year-old Yi Cam[place] female who presented to [facility]. The patient is bedbound and aphasic due to probabl e cerebrovascular accident. The patient appeared to have a sudden onset of difficulty in breathing. She felt warm to the touch, was tachycardic. Her pulse ox was 80% and she is a FULL CODE. She is a lso on KeNexsanra. The patient has hypertension, hyperlipidemia, and diabetes mellitus. PHYSICAL EXAMINATION: GENERAL: The patient is cachectic. VITAL SIGNS: Temperature 102.1, pulse of 130, respirations 33, blood pressure 92/67, all consistent with systemic inflammatory response syndrome or SIRS. HEENT: Within normal limits. NECK: Supple. LYMPH NODES: None palpable. CHEST: Decreased breath sounds at the bases. HEART: Tachycardic without murmur or gallop. ABDOMEN: Soft, nontender. She has a G-tube in place. There is no organosplenomegaly or masses. EXTREMITIES: She has muscle atrophy of bilateral lower extremities with paralysis of the lower extre mities. RECTAL AND GENITAL: Deferred. NEUROLOGIC: No focal neurological abnormalities. The patient is nonverbal. ANCILLARY LABORATORY DATA: Her white count on admission was 20.5, H and H of 15.2 and 49.3, platelet count of 234,000. BUN and creatinine was 82/1.08 and her glucose was 621. So she was severely hype rglycemic. Her blood gases showed a pH of 7.497, pO2 of 71, pCO2 of 29.5. IMPRESSION AND PLAN: She was placed on 100% BiPAP. She had an 88% neutrophil count to go with her 2 0.5 white count. Her urine was negative for leukocyte esterase and she only had 4 white cells per hi gh powered field. The patient was placed on vancomycin and cefepime, as she was clearly septic. She was placed on a monitoring specialist. She was placed on BiPAP. Chest x-ray showed patchy right basilar and left upper lobe and left lower lobe airspace opacities suggestive of pneumonia. Patient was admi tted for careful hydration and antibiotic therapy. The patient is to be transferred to the intensive care unit once stabilized in the Emergency Room. I will dictate my findings to the hospitalists. Dictated By: LARISSA FARAH MD, JD/JACQUELINE Conf#: [id number] DID#: [id number] CC: MALINI GOMEZ MD;*End*
[2019-06-10] MEDS: PIPER-TAZO 3.375 GM IV (PMX) 100 ML IVPB SCH (18:23)
--- NOTE | 2019-06-10 18:30 | CONS ---
Assessment/Plan Assessment/Plan Hospital Course (Demo Recall) 84 year old with dementia and multiple medical problems presenting with pneumonia, septic shock, respiratory failure requiring pressors, and possible brain mass, with elevated troponins. Elevated troponin most likely secondary to her acute illness, and not due to a thrombotic AR. Even if this were a thrombotic AR event, she is not a candidate for invasive treatment and revascularization. Therefore, would treat her medically for her underlying acute issues. Will order an echo to assess LVEF, wall motion, and cause of her systolic murmur. Consultation Date/Type/Reason Admit Date/Time 06/10/2019 Date of Consultation: Jun 10, 2019 Type of Consult Cardiology Reason for Consultation elevated troponin Requesting Provider: MALINI GOMEZ Date/Time of Note DATE: 06/10/19 TIME: 18:20 Hx of Present Illness 84 yo with history of dementia, bedbound status, nonverbal, with PEG tube for feeding, presents from her SNF with increased work of breathing. Workup has revealed infiltrates on CXR consistent with pneumonia. Her troponin has also been mildly elevated. Patient cannot provide any meaningful history. She has required levophed as pressor support and is on a bipap mask. Also of note is findings on CT of a possible hemorrhage versus mass. Subjective hx not possible: pt non-verbal Past Medical History Medical History: diabetes, GERD, high cholesterol, hypertension, renal disease, other (dementia, copd, anxiety (per penitentiary notes)) Home Meds Reported Medications Olanzapine* (Zyprexa*) 5 Mg Tablet, 5 MG GTB DAILY, #30 TAB 06/10/19 Polyethylene Glycol* (Miralax*) 17 Gm Powd.pack, 17 GM GTB DAILY, #30 PACKET 06/10/19 Benazepril Hcl* (Benazepril Hcl*) 10 Mg Tablet, 10 MG GTB DAILY, #30 TAB HOLD IF SBP<110 OR HR<60 06/10/19 Atorvastatin Calcium* (Atorvastatin Calcium*) 20 Mg Tablet, 20 MG GTB QHS, #30 TAB 06/10/19 Insulin Detemir (Levemir Flextouch) 100 Unit/1 Ml Insuln.pen, 8 UNIT SQ QHS, EA 06/10/19 Levetiracetam* (Keppra*) 500 Mg/5 Ml Solution, 5 ML GTB BID, BOTTLE 06/10/19 Fluvoxamine Maleate* (Luvox*) 50 Mg Tab, 25 MG GTB DAILY, TAB 06/10/19 Aspirin* (Aspirin* Chew) 81 Mg Tab.chew, 81 MG GTB DAILY, TAB.CHEW 06/10/19 Amiodarone Hcl* (Amiodarone Hcl*) 100 Mg Tablet, 100 MG GTB DAILY, #30 TAB HOLD FOR SBP<110 OR HR<60 06/10/19 Acetaminophen* (Acetaminophen* Susp) 325 Mg/10.15 Ml Solution, 20 ML GTB Q6H PRN for PAIN LEVEL 1-10/10, ML AND FEVER>101F 06/10/19 Discontinued Reported Medications Aspirin* (Aspirin* EC) 81 Mg Tablet.dr, 81 MG GTB DAILY, TAB 06/10/19 Medications Current Medications Sodium Chloride 1,000 ml @ 70 mls/hr [id number] IV Last administered on 06/10/19at 15:15; Admin Dose 70 MLS/HR; Start 06/10/19 at 11:58; Stop 06/11/19 at 17:25 IV Flush (NS 3 ml) 3 ml PER PROTOCOL IV ; Start 06/10/19 at 12:00 Ondansetron HCl (Zofran Inj) 4 mg Q6H PRN IV NAUSEA/VOMITING; Start 06/10/19 at 12:00 Aspirin (Aspirin) 81 mg DAILY PEG ; Start 06/11/19 at 09:00 Acetaminophen (Tylenol Tab) 650 mg Q6H PRN PO .PAIN 1-3 OR TEMP; Start 06/10/19 at 12:00 Acetaminophen/ Hydrocodone Bitart (Polo (5/325)) 1 tab Q6H PRN PO .PAIN 4-6; Start 06/10/19 at 12:00 Morphine Sulfate (morphine) 2 mg Q4H PRN IV .PAIN 7-10; Start 06/10/19 at 12:00 Docusate Sodium (Colace) 100 mg Q12H PO ; Start 06/10/19 at 12:00 Heparin Sodium (Porcine) (Heparin (5000 Units/1ml)) 5,000 unit Q8 SC Last administered on 06/10/19at 15:15; Admin Dose 5,000 UNIT; Start 06/10/19 at 14:00 Vancomycin HCl (Vanco Iv Per Pharmacy) VANCOMYCIN PER PHARMACY PER PROTOCOL XX ; Start 06/10/19 at 12:30 Piperacillin Sod/ Tazobactam Sod 100 ml @ 200 mls/hr Q6 IVPB ; Start 06/10/19 at 18:00 Amiodarone HCl (Cordarone) 100 mg DAILY GTB ; Start 06/11/19 at 09:00 Atorvastatin Calcium (Lipitor) 20 mg QHS GTB ; Start 06/10/19 at 21:00 Levetiracetam (Keppra Liquid) 500 mg BID GTB ; Start 06/10/19 at 21:00 Olanzapine (Zyprexa) 5 mg DAILY GTB ; Start 06/11/19 at 09:00 Polyethylene Glycol (Miralax) 17 gm DAILY GTB ; Start 06/11/19 at 09:00 Ondansetron HCl (Zofran Inj) 4 mg ER BRIDGE PRN IV NAUSEA/VOMITING; Start 06/10/19 at 13:00; Stop 06/11/19 at 12:59 Acetaminophen (Tylenol Tab) 650 mg ER BRIDGE PRN PO .MILD PAIN 1-3 OR TEMP; Start 06/10/19 at 13:00; Stop 06/11/19 at 12:59 Miscellaneous Information 1 ea NOTE XX ; Start 06/10/19 at 14:00 Glucose (Glutose) 15 gm Q15M PRN PO DECREASED GLUCOSE; Start 06/10/19 at 14:00 Glucose (Glutose) 22.5 gm Q15M PRN PO DECREASED GLUCOSE; Start 06/10/19 at 14 :00 Dextrose (D50w Syringe) 25 ml Q15M PRN IV DECREASED GLUCOSE; Start 06/10/19 at 14:00 Dextrose (D50w Syringe) 50 ml Q15M PRN IV DECREASED GLUCOSE; Start 06/10/19 at 14:00 Glucagon (Glucagen) 1 mg Q15M PRN IM DECREASED GLUCOSE; Start 06/10/19 at 14:00 Glucose (Glutose) 15 gm Q15M PRN BUCCAL DECREASED GLUCOSE; Start 06/10/19 at 14:00 Norepinephrine 250 ml @ 7.5 mls/hr ONCE STAT IV Last administered on 06/10/19at 16:01; Admin Dose 7.5 MLS/HR; Start 06/10/19 at 14:29; Stop 06/11/19 at 23:48 Norepinephrine 250 ml @ 1.875 mls/ hr TITRATE IV ; Start 06/10/19 at 15:00 Diagnostic Test (Pha) (Accu-Chek) 1 ea Q1H XX ; Start 06/10/19 at 15:30 Insulin Human Regular 100 unit/ Sodium Chloride 100 ml @ 0 mls/hr PER PROTOCOL IV Last administered on 06/10/19at 18:19; Admin Dose 3 MLS/HR; Start 06/10/19 at 17:00 Miscellaneous Information (* Miscellaneous Pharmacy Order) Treatment of Hypoglycemia: 1.BG 51... Per protocol XX ; Start 06/10/19 at 15:30 Dextrose (D50w Syringe) 25 ml Q15M PRN IV .DECREASED GLUCOSE; Start 06/10/19 at 15:30 Dextrose (D50w Syringe) 50 ml Q15M PRN IV .DECREASED GLUCOSE; Start 06/10/19 at 15:30 Albuterol/ Ipratropium (Duoneb) 3 ml Q6HWA RESP THERAPY HHN ; Start 06/10/19 at 20:00 Albuterol/ Ipratropium (Duoneb) 3 ml Q2H RESP THERAPY PRN HHN wheezing; Start 06/10/19 at 15:30 Budesonide (Pulmicort (Neb)) 0.5 mg BID RESP THERAPY HHN ; Start 06/10/19 at 20:00 IV Flush (NS 10 ml) 10 ml [id number] PRN IV Line Patency; Start 06/10/19 at 16:00 Fluvoxamine Maleate (Fluvoxamine Maleate) 25 mg DAILY GTB ; Start 06/11/19 at 09:00 Allergies: Coded Allergies: No Known Allergy (Unverified , 06/10/19) Past Surgical History Past Surgical Hx: other (PEG tube) Family History Significant Family History: other (unable) Social History unknown Smoking Status: Unknown if ever smoked Exam/Review of Systems Vital Signs Vitals Vital Signs Date Temp Pulse Resp B/P (MAP) Pulse Ox O2 O2 Flow FiO2 Time Delivery Rate 06/10/19 118 22 110/73 97 BIPAP 17:45 (85) 06/10/19 98.9 17:00 06/10/19 100 15:33 06/10/19 15 10:25 Exam Constitutional: other (arousable, frail) Psych: other (nonverbal) Head: normocephalic, atraumatic Eyes: EOMI, nl lids ENMT: nl external ears & nose Neck: No jvd, No bruits Respiratory: diminished breath sounds Cardiovascular: regular rate and rhythm, systolic murmur, other (tachycardic) Gastrointestinal: soft, nl liver, spleen, non-tender Musculoskeletal: nl extremities to inspection Extremities: No normal pulses Neurological: unresponsive Skin: other (feet cool) Labs Result Diagram: 06/10/19 1000 06/10/19 1000 Results 24hrs Laboratory Tests Test 06/10/19 09:56 06/10/19 10:00 06/10/19 10:19 06/10/19 11:42 Blood Gas Blood arterial Specimen Source Arterial Blood 06/10/2019 10:38: Date Drawn 45 AM Arterial Blood pH 7.497 H (Temp corrected) Arterial Blood 29.5 L pCO2 (Temp correct) Arterial Blood 71.6 L pO2 (Temp corrected) Arterial Blood 22.3 HCO3 Arterial Blood 0.2 Base Excess Arterial Blood 94.6 L Oxygen Saturation James Test N/A Arterial Blood Right Brachial Gas Puncture Site Arterial 0.6 Blood Carboxyhemo globin Arterial Blood 0.2 Methemoglobin Blood Gas A-a O2 611.9 H Differential Oxyhemoglobin 93.8 Percent Blood Gas 37.0 Temperature Blood Gas 20.0 Respiration Rate Blood Gas Actual 44 Respiration Rate Blood Gas MASK - BIPAP Modality FiO2 100.0 Blood Gas 10 Pressure Support Blood Gas 15/5 IPAP/EPAP Ratio Blood Gas TM Notified Whom Blood Gas 06/10/2019 10:46: Notified Time 46 AM White Blood Count 20.5 H Red Blood Count 5.03 Hemoglobin 15.2 Hematocrit 49.3 H Mean Corpuscular 98.0 Volume Mean Corpuscular 30.2 Hemoglobin Mean Corpuscular 30.8 L Hemoglobin Concen t Red Cell 16.2 H Distribution Width Platelet Count 234 Mean Platelet 12.1 H Volume Immature 0.600 H Granulocytes % Neutrophils % 88.0 H Lymphocytes % 5.2 L Monocytes % 5.8 Eosinophils % 0.0 Basophils % 0.4 Nucleated Red 0.0 Blood Cells % Immature 0.120 H Granulocytes # Neutrophils # 18.0 H Lymphocytes # 1.1 Monocytes # 1.2 H Eosinophils # 0.0 Basophils # 0.1 Nucleated Red 0.0 Blood Cells # Prothrombin Time 14.6 Prothrombin Time 1.1 Ratio INR International 1.13 Normalized Ratio Activated 25.2 Partial Thrombopl ast Time Sodium Level 152 H Potassium Level 5.2 H Chloride Level 114 H Carbon Dioxide 25 Level Anion Gap 13 Blood Urea 82 H Nitrogen Creatinine 1.08 H Est Glomerular Filtrat Rate mL/min Glucose Level 621 *H Calcium Level 9.8 Total Bilirubin 1.0 Direct Bilirubin 0.00 Indirect 1.0 Bilirubin Aspartate Amino 21 Transf (AST/SGOT) Alanine 8 L Aminotransferase (ALT/SGPT) Alkaline 76 Phosphatase Troponin I 0.137 *H B-Type 5960 H Natriuretic Peptide Total Protein 7.2 Albumin 3.6 Globulin 3.60 H Albumin/Globulin 1.00 Ratio Amylase Level 95 Lipase 148 POC Venous 4.3 *H Lactate Bedside Glucose 542 *H Test 06/10/19 12:40 06/10/19 15:09 06/10/19 16:06 06/10/19 18:08 Urine Color YELLOW Urine Clarity SLIGHTLY CLOUDY A Urine pH 6.0 Urine Specific 1.017 [place] Urine Ketones TRACE A Urine Nitrite NEGATIVE Urine Bilirubin NEGATIVE Urine NEGATIVE Urobilinogen Urine Leukocyte NEGATIVE Esterase Urine Microscopic 0 RBC Urine Microscopic 4 WBC Urine Bacteria FEW A Urine Hemoglobin NEGATIVE Urine Glucose 3+ H Urine Total NEGATIVE Protein Lactic Acid Level 6.9 *H 4.4 *H Bedside Glucose 341 H 241 H Troponin I 0.174 *H Imaging Imaging Ekg shows sinus tachycardia at 131 bpm, left axis deviation, incomplete rbbb Medications Medications Current Medications Sodium Chloride 1,000 ml @ 70 mls/hr [id number] IV Last administered on 06/10/19at 15:15; Admin Dose 70 MLS/HR; Start 06/10/19 at 11:58; Stop 06/11/19 at 17:25 IV Flush (NS 3 ml) 3 ml PER PROTOCOL IV ; Start 06/10/19 at 12:00 Ondansetron HCl (Zofran Inj) 4 mg Q6H PRN IV NAUSEA/VOMITING; Start 06/10/19 at 12:00 Aspirin (Aspirin) 81 mg DAILY PEG ; Start 06/11/19 at 09:00 Acetaminophen (Tylenol Tab) 650 mg Q6H PRN PO .PAIN 1-3 OR TEMP; Start 06/10/19 at 12:00 Acetaminophen/ Hydrocodone Bitart (Polo (5/325)) 1 tab Q6H PRN PO .PAIN 4-6; Start 06/10/19 at 12:00 Morphine Sulfate (morphine) 2 mg Q4H PRN IV .PAIN 7-10; Start 06/10/19 at 12:00 Docusate Sodium (Colace) 100 mg Q12H PO ; Start 06/10/19 at 12:00 Heparin Sodium (Porcine) (Heparin (5000 Units/1ml)) 5,000 unit Q8 SC Last administered on 06/10/19at 15:15; Admin Dose 5,000 UNIT; Start 06/10/19 at 14:00 Vancomycin HCl (Vanco Iv Per Pharmacy) VANCOMYCIN PER PHARMACY PER PROTOCOL XX ; Start 06/10/19 at 12:30 Piperacillin Sod/ Tazobactam Sod 100 ml @ 200 mls/hr Q6 IVPB ; Start 06/10/19 at 18:00 Amiodarone HCl (Cordarone) 100 mg DAILY GTB ; Start 06/11/19 at 09:00 Atorvastatin Calcium (Lipitor) 20 mg QHS GTB ; Start 06/10/19 at 21:00 Levetiracetam (Keppra Liquid) 500 mg BID GTB ; Start 06/10/19 at 21:00 Olanzapine (Zyprexa) 5 mg DAILY GTB ; Start 06/11/19 at 09:00 Polyethylene Glycol (Miralax) 17 gm DAILY GTB ; Start 06/11/19 at 09:00 Ondansetron HCl (Zofran Inj) 4 mg ER BRIDGE PRN IV NAUSEA/VOMITING; Start 06/10/19 at 13:00; Stop 06/11/19 at 12:59 Acetaminophen (Tylenol Tab) 650 mg ER BRIDGE PRN PO .MILD PAIN 1-3 OR TEMP; Start 06/10/19 at 13:00; Stop 06/11/19 at 12:59 Miscellaneous Information 1 ea NOTE XX ; Start 06/10/19 at 14:00 Glucose (Glutose) 15 gm Q15M PRN PO DECREASED GLUCOSE; Start 06/10/19 at 14:00 Glucose (Glutose) 22.5 gm Q15M PRN PO DECREASED GLUCOSE; Start 06/10/19 at 14:00 Dextrose (D50w Syringe) 25 ml Q15M PRN IV DECREASED GLUCOSE; Start 06/10/19 at 14:00 Dextrose (D50w Syringe) 50 ml Q15M PRN IV DECREASED GLUCOSE; Start 06/10/19 at 14:00 Glucagon (Glucagen) 1 mg Q15M PRN IM DECREASED GLUCOSE; Start 06/10/19 at 14:00 Glucose (Glutose) 15 gm Q15M PRN BUCCAL DECREASED GLUCOSE; Start 06/10/19 at 14:00 Norepinephrine 250 ml @ 7.5 mls/hr ONCE STAT IV Last administered on 06/10/19at 16:01; Admin Dose 7.5 MLS/HR; Start 06/10/19 at 14:29; Stop 06/11/19 at 23:48 Norepinephrine 250 ml @ 1.875 mls/ hr TITRATE IV ; Start 06/10/19 at 15:00 Diagnostic Test (Pha) (Accu-Chek) 1 ea Q1H XX ; Start 06/10/19 at 15:30 Insulin Human Regular 100 unit/ Sodium Chloride 100 ml @ 0 mls/hr PER PROTOCOL IV Last administered on 06/10/19at 18:19; Admin Dose 3 MLS/HR; Start 06/10/19 at 17:00 Miscellaneous Information (* Miscellaneous Pharmacy Order) Treatment of Hypoglycemia: 1.BG 51... Per protocol XX ; Start 06/10/19 at 15:30 Dextrose (D50w Syringe) 25 ml Q15M PRN IV .DECREASED GLUCOSE; Start 06/10/19 at 15:30 Dextrose (D50w Syringe) 50 ml Q15M PRN IV .DECREASED GLUCOSE; Start 06/10/19 at 15:30 Albuterol/ Ipratropium (Duoneb) 3 ml Q6HWA RESP THERAPY HHN ; Start 06/10/19 at 20:00 Albuterol/ Ipratropium (Duoneb) 3 ml Q2H RESP THERAPY PRN HHN wheezing; Start 06/10/19 at 15:30 Budesonide (Pulmicort (Neb)) 0.5 mg BID RESP THERAPY HHN ; Start 06/10/19 at 20:00 IV Flush (NS 10 ml) 10 ml [id number] PRN IV Line Patency; Start 06/10/19 at 16:00 Fluvoxamine Maleate (Fluvoxamine Maleate) 25 mg DAILY GTB ; Start 06/11/19 at 09:00 MEME OCHOA Jun 10, 2019 18:30
[2019-06-10] MEDS: ALBUTEROL/IPRATROPIUM (NEB) 3 ML AMP HHN SCH (20:06)
[2019-06-10] MEDS: BUDESONIDE (NEB) 0.5MG/2ML AMP HHN SCH (20:06)
[2019-06-10] MEDS ORDERED: ALBUMIN HUMAN 25% 100 ML IV ONE (20:30)
[2019-06-10] MEDS: LEVETIRACETAM (100 MG/ML) 5ML CUP GTB SCH (20:39)
[2019-06-10] MEDS: ATORVASTATIN 20 MG TAB GTB SCH (20:40)
[2019-06-10] MEDS ORDERED: PHENYLephrine 20MG IN 250 ML 250 ML ONE (20:53)
[2019-06-10] MEDS: PHENYLephrine 20MG IN 250 ML 250 ML IV SCH ×2 (21:18→23:22)
[2019-06-11] VITALS (94 sets, daily range): BP systolic 59–142; BP diastolic 41–98; PULSE 59–117; RESP 16–45
[2019-06-11] MEDS: DOCUSATE SODIUM 100 MG CAP PO SCH ×2 (00:38→13:51)
[2019-06-11] MEDS: PIPER-TAZO 3.375 GM IV (PMX) 100 ML IVPB SCH ×4 (00:39→18:28)
[2019-06-11] MEDS ORDERED: ACCU-CHEK XX SCH (02:00)
--- NOTE | 2019-06-11 02:34 | CONS ---
DATE OF ADMISSION: 06/10/2019 DATE OF CONSULTATION: 06/10/2019 NEUROSURGICAL CONSULTATION REQUESTING PHYSICIAN: Dr. Lainez. INDICATION FOR CONSULTATION: Possible intracranial hemorrhage. HISTORY OF PRESENT ILLNESS: The patient is an 84-year-old female with advanced dementia, who was in the custodial and admitted for what appeared to be septic shock. The patient apparently at baseline is nonverbal with end-stage dementia, bedridden. The patient was brought to the hospital for apparent shortness of breath, saturating about 80%. It is not clear why, but a CT scan of the head was performed. This CT scan was interpreted by the radiologist as a new study compared to a study from 04/15/2019 and 04/03/2009. His impression was that there was a new right frontal ventriculostomy at the tip of third ventricle and increased moderate ventriculostomy suggestive of progressive hydrocephalus, as well as persistent encephalomalacia/gliosis noted in the left parietal occipital region. There was reportedly a new interval ovoid hyperdensity with peripheral calcifications measuring 3.9 x 2 x 2.7, which was indeterminate and was felt to represent either an atypical hemorrhage versus a hyperdense lesion and an MRI was recommended. There is also interval reported interval encephalomalacia and gliosis with significant ex vacuo dilatation of the left occipital horn. Because of this finding, neurosurgical consultation was recommended. PAST MEDICAL HISTORY: Significant for atrial fibrillation, hypertension, COPD, diabetes, hyperlipidemia. SOCIAL HISTORY: The patient lives in a custodial and is with advanced dementia. The patient also has chronic kidney disease. ALLERGIES: NO KNOWN DRUG ALLERGIES. FAMILY HISTORY: Unable to obtain. SURGICAL HISTORY: Includes a history of a left parietal craniotomy by Dr. Smart at [facility] in 2005 for a tumor as well as a right frontal ventriculostomy placement, though this was apparently placed at the same time according to the history reported by the patient's son. OUTPATIENT MEDICATIONS: Include: 1. Zyprexa. 2. MiraLax. 3. Benazepril. 4. Atorvastatin. 5. Keppra. 6. Luvox. 7. A baby aspirin. 8. Amiodarone. PHYSICAL EXAMINATION: VITAL SIGNS: The patient's temperature 99.1, pulse 117, respirations 19, blood pressure 90/61, saturating 97% on BiPAP. GENERAL: The patient is an elderly thin female lying in the hospital bed in slight respiratory distress with BiPAP. HEAD AND NECK: Patient is normocephalic. She has a right frontal ventriculostomy reservoir and a well healed incision and an old parietal craniotomy incision. CARDIAC: Sinus tachycardia. CHEST: Decreased at bases. ABDOMEN: Nontender, distended, soft. She has a G-tube in place. EXTREMITIES: She has atrophy of the lower extremities. NEUROLOGIC: Patient's eyes are closed. She will grimace to noxious stimuli and perhaps slightly open her eyes. She localizes with upper extremities without movement of lower extremities. Deep tendon reflexes were absent. She does not follow commands. LABORATORY DATA: White count 20.5, hemoglobin 15.2, platelets 236. Coagulation panel normal limits and her sodium was 152, BUN and creatinine 82 and 1.08, glucose of 261 on admission yesterday, currently it is 241. IMAGING: I reviewed the patient's studies. Apparently,she was given the wrong name upon hospitalization of Sixto Roberts versus Trey Roberts. 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 There is evidence of a prior transcortical tract to the frontal horn and there is ex vacuo dilatation of the left temporal horn similar to previous. The only difference is that there may have been some more extraaxial fluid previously, but this may simply be that the MRI shows this better. Overall, I do see the tumor be slightly bigger, but I see no significant change. There is no evidence of acute blood on the CT scan given the history of the prior tumor. ASSESSMENT AND PLAN: This is an 84-year-old female with respiratory distress, history of tumor and dementia. This patient does not have an acute surgical issue. 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 The patient was seen in [address] Edward Diop and Dr[address] Jj Klein per [facility]. The patient has a Codman valve and there was some dural enhancement that was felt to be possibly due to overdrianage so her valve pressure was increased. The extra- axial spaces appear to have gotten smaller which likely reflects the change in valve pressure. In comparison over the last 5 years, I see no significant change that would appear to be acute or concerning. Given the patient's baseline neurologic status, there is no indication for any type of neurosurgical intervention for this patient. She is currently very sick with respiratory issues and her multiple comorbidities. My assessment of this MRI with appropriate name suggests that there is no acute finding on the CT. The patient is advised to follow-up at [facility] with her surgeon once discharged. Dictated By: NIKI GILMORE MD, LG/JACQUELINE Conf#: [id number] DID#: [id number] MTDD
[2019-06-11] MEDS: PHENYLephrine 20MG IN 250 ML 250 ML IV SCH ×5 (02:52→18:41)
[2019-06-11] MEDS: INSULIN ASPART [NOVOLOG] 3 ML PEN SC SCH ×5 (05:00→20:25)
[2019-06-11] MEDS: SOD CHLORIDE 0.9% 1,000 ML IV SCH (05:27)
[2019-06-11] MEDS: ALBUTEROL/IPRATROPIUM (NEB) 3 ML AMP HHN SCH ×3 (08:10→19:36)
[2019-06-11] MEDS: POTASSIUM CHLORIDE 100 ML IVPB SCH ×2 (08:43→11:01)
[2019-06-11] MEDS ORDERED: FLUVOXAMINE 50 MG TAB GTB SCH (09:00)
[2019-06-11] MEDS ORDERED: ASPIRIN 81 MG TAB PEG SCH (09:00)
[2019-06-11] MEDS ORDERED: BENAZEPRIL 10 MG TAB GTB SCH (09:00)
[2019-06-11] MEDS ORDERED: DEXTROSE 5% 1,000 ML IV SCH (09:00)
[2019-06-11] MEDS: OLANZAPINE 5 MG TAB GTB SCH (09:10)
[2019-06-11] MEDS: FLUVOXAMINE MALEATE 25 MG TABLET GTB SCH (09:10)
[2019-06-11] MEDS: LEVETIRACETAM (100 MG/ML) 5ML CUP GTB SCH ×2 (09:10→20:23)
[2019-06-11] MEDS: AMIODARONE 200 MG TAB GTB SCH (09:11)
[2019-06-11] MEDS: POLYETHYLENE GLYCOL 17 GM PACKET GTB SCH (09:11)
[2019-06-11] MEDS: ASPIRIN 81 MG TAB PEG SCH (09:13)
--- NOTE | 2019-06-11 09:20 | PN ---
Date/Time of Note Date/Time of Note DATE: 06/11/19 TIME: 09:15 Objective Vitals Vital Signs Date Temp Pulse Resp B/P (MAP) Pulse Ox O2 O2 Flow FiO2 Time Delivery Rate 06/11/19 89 08:00 06/11/19 16 108/56 98 05:45 (73) 06/11/19 60 05:20 06/11/19 BIPAP 05:00 06/11/19 98.8 04:00 06/10/19 15 10:25 Intake and Output 06/10/19 06/10/19 06/11/19 1515:00 23:00 07:00 IntakeIntake Total 681.75 ml 1458.8 ml OutputOutput Total 180 ml 300 ml BalanceBalance 501.75 ml 1158.8 ml Results Result Diagram: 06/11/19 0400 06/11/19 0400 Medications Medications Current Medications IV Flush (NS 3 ml) 3 ml PER PROTOCOL IV ; Start 06/10/19 at 12:00 Ondansetron HCl (Zofran Inj) 4 mg Q6H PRN IV NAUSEA/VOMITING; Start 06/10/19 at 12:00 Acetaminophen (Tylenol Tab) 650 mg Q6H PRN PO .PAIN 1-3 OR TEMP; Start 06/10/19 at 12:00 Acetaminophen/ Hydrocodone Bitart ([place] (5/325)) 1 tab Q6H PRN PO .PAIN 4-6; Start 06/10/19 at 12:00 Morphine Sulfate (morphine) 2 mg Q4H PRN IV .PAIN 7-10; Start 06/10/19 at 12:00 Docusate Sodium (Colace) 100 mg Q12H PO Last administered on 06/11/19at 00:38; Admin Dose 100 MG; Start 06/10/19 at 12:00 Vancomycin HCl (Vanco Iv Per Pharmacy) VANCOMYCIN PER PHARMACY PER PROTOCOL XX ; Start 06/10/19 at 12:30 Piperacillin Sod/ Tazobactam Sod 100 ml @ 200 mls/hr Q6 IVPB Last administered on 06/11/19at 05:28; Admin Dose 200 MLS/HR; Start 06/10/19 at 18:00 Amiodarone HCl (Cordarone) 100 mg DAILY GTB ; Start 06/11/19 at 09:00 Atorvastatin Calcium (Lipitor) 20 mg QHS GTB Last administered on 06/10/19at 20:40; Admin Dose 20 MG; Start 06/10/19 at 21:00 Levetiracetam (Keppra Liquid) 500 mg BID GTB Last administered on 06/10/19at 20:39; Admin Dose 500 MG; Start 06/10/19 at 21:00 Olanzapine (Zyprexa) 5 mg DAILY GTB ; Start 06/11/19 at 09:00 Polyethylene Glycol (Miralax) 17 gm DAILY GTB ; Start 06/11/19 at 09:00 Miscellaneous Information 1 ea NOTE XX ; Start 06/10/19 at 14:00 Glucose (Glutose) 15 gm Q15M PRN PO DECREASED GLUCOSE; Start 06/10/19 at 14:00 Glucose (Glutose) 22.5 gm Q15M PRN PO DECREASED GLUCOSE; Start 06/10/19 at 14:00 Dextrose (D50w Syringe) 25 ml Q15M PRN IV DECREASED GLUCOSE; Start 06/10/19 at 14:00 Dextrose (D50w Syringe) 50 ml Q15M PRN IV DECREASED GLUCOSE; Start 06/10/19 at 14:00 Glucagon (Glucagen) 1 mg Q15M PRN IM DECREASED GLUCOSE; Start 06/10/19 at 14:00 Glucose (Glutose) 15 gm Q15M PRN BUCCAL DECREASED GLUCOSE; Start 06/10/19 at 14:00 Norepinephrine 250 ml @ 1.875 mls/ hr TITRATE IV ; Start 06/10/19 at 15:00 Albuterol/ Ipratropium (Duoneb) 3 ml Q6HWA RESP THERAPY HHN Last administered on 06/10/19at 20:06; Admin Dose 3 ML; Start 06/10/19 at 20:00 Albuterol/ Ipratropium (Duoneb) 3 ml Q2H RESP THERAPY PRN HHN wheezing; Start 06/10/19 at 15:30 Budesonide (Pulmicort (Neb)) 0.5 mg BID RESP THERAPY HHN Last administered on 06/10/19at 20:06; Admin Dose 0.5 MG; Start 06/10/19 at 20:00 IV Flush (NS 10 ml) 10 ml [id number] PRN IV Line Patency; Start 06/10/19 at 16:00 Fluvoxamine Maleate (Fluvoxamine Maleate) 25 mg DAILY GTB ; Start 06/11/19 at 09:00 Phenylephrine HCl 250 ml @ 75 mls/hr TITRATE IV Last administered on 06/11/19at 05:41; Admin Dose 75 MLS/HR; Start 06/10/19 at 21:00 Vancomycin/Sodium Chloride 250 ml @ 125 mls/hr Q24H IVPB ; Start 06/11/19 at 11:00 Insulin Aspart (Novolog Insulin Pen) NOVOLOG *MODERATE* ALGORI... Q4 SC ; Start 06/11/19 at 05:00 Potassium Chloride 100 ml @ 50 mls/hr Q2H IVPB Last administered on 06/11/19at 08:43; Admin Dose 50 MLS/HR; Start 06/11/19 at 07:00; Stop 06/11/19 at 10:59 Aspirin (Aspirin) 81 mg DAILY PEG ; Start 06/11/19 at 09:00 Dextrose 1,000 ml @ 50 mls/hr Q20H IV ; Start 06/11/19 at 09:00 Heparin Sodium (Porcine) (Heparin (5000 Units/1ml)) 5,000 unit Q8 SC ; Start 06/11/19 at 14:00 VTE Prophylaxis Risk score (from Nsg)>0 risk: 8 SCD applied (from Nsg): Yes Lines/Catheters IV Catheter Type: Dorsey in Place: Yes Cont'd dorsey catheter reason: terminal illness/intractable pain Assessment/Plan Hospital Course Subjective Patient doing markedly better than initial encounter in the emergency room, анна ent appears to be at baseline, alert and able to track however with no conversational skills or truly coordinated movement. Objective Physical exam General: Patient is laying in bed with BiPAP Mentation: Patient is alert but not oriented Head: Normocephalic atraumatic Eyes: EOMI, pupils reactive to light Neck: Supple, nontender, midline Respiratory: Coarse to auscultation bilaterally Cardiovascular: Tachycardic rate, no obvious murmurs Gastrointestinal: non-tender to palpation, bowel sounds heard. Neurological: Moves all extremities spontaneously, Skin: No new skin lesions, PEG tube site present Assessment and plan Multifocal pneumonia -Broad-spectrum antibiotic to cover aspiration -Infectious disease consulted -Breathing treatments as needed -Pulmonology also on board Acute hypoxic respiratory failure -Likely secondary to above pneumonia -Pulmonology on board -Continue IV antibiotic Septic shock versus severe sepsis -Pressors as needed, titrate off pressors when able -IV antibiotic -Pancultured Non-ST elevated OR -Very mild elevation -Dr. Jimenez, cardiology has been consulted -Troponin stabilized -Aspirin, statin -Cardiology doubts true thrombotic OR Electrolyte derangement with hypernatremia -Patient likely adequately hydrated for now, will switch all over NS to D5 or D5 half-normal per nephrology recommendations for hypernatremia -Monitor sodium, renal panel later today Chronic dysphasia -Patient has PEG tube -Monitor -Continue tube feeds Hyperglycemia with diabetes mellitus -Insulin sliding scale for now, patient became hypoglycemic with insulin drip. -Continue fluids as necessary Chronic encephalopathy -CT of the brain initially showed alarming findings however there appears to be a mixup with patient's name, patient's actual name is Trey Roberts, [id number]. Neurosurgeon was initially consulted for possible brain bleed and other findings however when comparing to the patient's actual chart in 2013, neurosurgeon reviewed the CT and MRI and found a similar findings with no acute emergent change. -Monitor closely, patient appears to be at baseline Hypertension -Hold hypertensive medications for now due to hypotension A. fib -Continue home meds, cardiology on board dyslipidemia -Continue home meds Mood disorder -Continue home meds Chronic kidney disease -Very mild, nephrology on board Failure to thrive -We will have discussion with patient's family on goals of care Disposition -Titrate off pressors when able -Continue ICU care -Over 40 minutes of critical care time was spent on this evaluation MALINI GOMEZ Jun 11, 2019 09:20
--- NOTE | 2019-06-11 09:22 | CONS ---
Assessment/Plan Assessment/Plan Assessment/Plan (Daily) Chest x-ray showing extensive pneumonia involving left lung. Patient is currently on BiPAP 15/5 60% FiO2. Assessment and recommendations; 1. Patient with history of advanced dementia admitted for severe pneumonia mostly involving left lung, possibly aspiration. Currently on appropriate antimicrobial regimen. With improving leukocytosis. 2. Intravascular volume depletion with hypernatremia and hyperchloremia. 3. Chronic atrial fibrillation. 4. Diabetes. 5. Hypertension. 6. Mild thrombocytopenia. Continue current supportive care. Administer free water for correction of hypernatremia and intravascular volume depletion. Obtain follow-up ABG now as well as chest x-ray in 24 hours. CODE STATUS needs to be addressed with the family. Prognosis appears guarded at this point. Consultation Date/Type/Reason Admit Date/Time 06/10/2019 Date of Consultation: Jun 11, 2019 Type of Consult Pulmonary/critical care Patient is an 84-year-old [place] lady who was transferred to to the hospital from alf with hypoxemia. Upon evaluation patient is been diagnosed with sepsis due to pneumonia. Patient has advanced dementia and is unable to give any history by herself whatsoever. Patient however is appearing tachypneic. Past medical history; 1. History of chronic atrial fibrillation. 2. Advanced dementia. 3. History of G-tube placement. 4. History of diabetes. 5. History of hypertension. Medications; reviewed. Allergies; none. Social history, family history, occupational history is are not available. Review of systems; unable to be obtained. General exam; elderly woman, on BiPAP. Noncommunicative. Tachypneic. Date/Time of Note DATE: 06/11/19 TIME: 09:19 Past Medical History Medical History: high cholesterol, hypertension, other (Dementia, Atrial fibrillation ) Home Meds Reported Medications Olanzapine* (Zyprexa*) 5 Mg Tablet, 5 MG GTB DAILY, #30 TAB 06/10/19 Polyethylene Glycol* (Miralax*) 17 Gm Powd.pack, 17 GM GTB DAILY, #30 PACKET 06/10/19 Benazepril Hcl* (Benazepril Hcl*) 10 Mg Tablet, 10 MG GTB DAILY, #30 TAB HOLD IF SBP<110 OR HR<60 06/10/19 Atorvastatin Calcium* (Atorvastatin Calcium*) 20 Mg Tablet, 20 MG GTB QHS, #30 TAB 06/10/19 Insulin Detemir (Levemir Flextouch) 100 Unit/1 Ml Insuln.pen, 8 UNIT SQ QHS, EA 06/10/19 Levetiracetam* (Keppra*) 500 Mg/5 Ml Solution, 5 ML GTB BID, BOTTLE 06/10/19 Fluvoxamine Maleate* (Luvox*) 50 Mg Tab, 25 MG GTB DAILY, TAB 06/10/19 Aspirin* (Aspirin* Chew) 81 Mg Tab.chew, 81 MG GTB DAILY, TAB.CHEW 06/10/19 Amiodarone Hcl* (Amiodarone Hcl*) 100 Mg Tablet, 100 MG GTB DAILY, #30 TAB HOLD FOR SBP<110 OR HR<60 06/10/19 Acetaminophen* (Acetaminophen* Susp) 325 Mg/10.15 Ml Solution, 20 ML GTB Q6H PRN for PAIN LEVEL 1-10/10, ML AND FEVER>101F 06/10/19 Discontinued Reported Medications Aspirin* (Aspirin* EC) 81 Mg Tablet.dr, 81 MG GTB DAILY, TAB 06/10/19 Medications Current Medications IV Flush (NS 3 ml) 3 ml PER PROTOCOL IV ; Start 06/10/19 at 12:00 Ondansetron HCl (Zofran Inj) 4 mg Q6H PRN IV NAUSEA/VOMITING; Start 06/10/19 at 12:00 Acetaminophen (Tylenol Tab) 650 mg Q6H PRN PO .PAIN 1-3 OR TEMP; Start 06/10/19 at 12:00 Acetaminophen/ Hydrocodone Bitart ([place] (5/325)) 1 tab Q6H PRN PO .PAIN 4-6; Start 06/10/19 at 12:00 Morphine Sulfate (morphine) 2 mg Q4H PRN IV .PAIN 7-10; Start 06/10/19 at 12:00 Docusate Sodium (Colace) 100 mg Q12H PO Last administered on 06/11/19at 00:38; Admin Dose 100 MG; Start 06/10/19 at 12:00 Vancomycin HCl (Vanco Iv Per Pharmacy) VANCOMYCIN PER PHARMACY PER PROTOCOL XX ; Start 06/10/19 at 12:30 Piperacillin Sod/ Tazobactam Sod 100 ml @ 200 mls/hr Q6 IVPB Last administered on 06/11/19at 05:28; Admin Dose 200 MLS/HR; Start 06/10/19 at 18:00 Amiodarone HCl (Cordarone) 100 mg DAILY GTB ; Start 06/11/19 at 09:00 Atorvastatin Calcium (Lipitor) 20 mg QHS GTB Last administered on 06/10/19at 20:40; Admin Dose 20 MG; Start 06/10/19 at 21:00 Levetiracetam (Keppra Liquid) 500 mg BID GTB Last administered on 06/10/19at 20:39; Admin Dose 500 MG; Start 06/10/19 at 21:00 Olanzapine (Zyprexa) 5 mg DAILY GTB ; Start 06/11/19 at 09:00 Polyethylene Glycol (Miralax) 17 gm DAILY GTB ; Start 06/11/19 at 09:00 Miscellaneous Information 1 ea NOTE XX ; Start 06/10/19 at 14:00 Glucose (Glutose) 15 gm Q15M PRN PO DECREASED GLUCOSE; Start 06/10/19 at 14:00 Glucose (Glutose) 22.5 gm Q15M PRN PO DECREASED GLUCOSE; Start 06/10/19 at 14:00 Dextrose (D50w Syringe) 25 ml Q15M PRN IV DECREASED GLUCOSE; Start 06/10/19 at 14:00 Dextrose (D50w Syringe) 50 ml Q15M PRN IV DECREASED GLUCOSE; Start 06/10/19 at 14:00 Glucagon (Glucagen) 1 mg Q15M PRN IM DECREASED GLUCOSE; Start 06/10/19 at 14:00 Glucose (Glutose) 15 gm Q15M PRN BUCCAL DECREASED GLUCOSE; Start 06/10/19 at 14:00 Norepinephrine 250 ml @ 1.875 mls/ hr TITRATE IV ; Start 06/10/19 at 15:00 Albuterol/ Ipratropium (Duoneb) 3 ml Q6HWA RESP THERAPY HHN Last administered on 06/10/19at 20:06; Admin Dose 3 ML; Start 06/10/19 at 20:00 Albuterol/ Ipratropium (Duoneb) 3 ml Q2H RESP THERAPY PRN HHN wheezing; Start 06/10/19 at 15:30 Budesonide (Pulmicort (Neb)) 0.5 mg BID RESP THERAPY HHN Last administered on 06/10/19at 20:06; Admin Dose 0.5 MG; Start 06/10/19 at 20:00 IV Flush (NS 10 ml) 10 ml [id number] PRN IV Line Patency; Start 06/10/19 at 16:00 Fluvoxamine Maleate (Fluvoxamine Maleate) 25 mg DAILY GTB ; Start 06/11/19 at 09:00 Phenylephrine HCl 250 ml @ 75 mls/hr TITRATE IV Last administered on 06/11/19at 05:41; Admin Dose 75 MLS/HR; Start 06/10/19 at 21:00 Vancomycin/Sodium Chloride 250 ml @ 125 mls/hr Q24H IVPB ; Start 06/11/19 at 11:00 Insulin Aspart (Novolog Insulin Pen) NOVOLOG *MODERATE* ALGORI... Q4 SC ; Start 06/11/19 at 05:00 Potassium Chloride 100 ml @ 50 mls/hr Q2H IVPB Last administered on 06/11/19at 08:43; Admin Dose 50 MLS/HR; Start 06/11/19 at 07:00; Stop 06/11/19 at 10:59 Aspirin (Aspirin) 81 mg DAILY PEG ; Start 06/11/19 at 09:00 Dextrose 1,000 ml @ 50 mls/hr Q20H IV ; Start 06/11/19 at 09:00 Heparin Sodium (Porcine) (Heparin (5000 Units/1ml)) 5,000 unit Q8 SC ; Start 06/11/19 at 14:00 Allergies: Coded Allergies: No Known Allergy (Unverified , 06/10/19) Past Surgical History Past Surgical Hx: other (not available ) Social History Alcohol Use: none Smoking Status: Unknown if ever smoked Drug Use: none Exam/Review of Systems Exam Vitals Vital Signs Date Temp Pulse Resp B/P (MAP) Pulse Ox O2 O2 Flow FiO2 Time Delivery Rate 06/11/19 89 08:00 06/11/19 16 108/56 98 05:45 (73) 06/11/19 60 05:20 06/11/19 BIPAP 05:00 06/11/19 98.8 04:00 06/10/19 15 10:25 Intake and Output 06/10/19 06/10/19 06/11/19 1515:00 23:00 07:00 IntakeIntake Total 681.75 ml 1458.8 ml OutputOutput Total 180 ml 300 ml BalanceBalance 501.75 ml 1158.8 ml Exam H ENT exam; supple neck, no JVD. No lymphadenopathy. Midline trachea. No thyromegaly. On BiPAP. No neck masses. Pupils are small bilaterally. Chest exam; diminished breath sounds throughout. S1-S2 audible, no murmurs. Irregular rhythm. Abdomen exam; soft, no organomegaly. Nondistended. G-tube in place. Bowel so unds are audible. Extremity exam; no peripheral edema. 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 But is awake. Results Result Diagram: 06/11/19 0400 06/11/19 0400 Results 24hrs Laboratory Tests Test 06/10/19 09:56 06/10/19 10:00 06/10/19 10:19 06/10/19 11:42 Blood Gas Blood arterial Specimen Source Arterial Blood 06/10/2019 10:38: Date Drawn 45 AM Arterial Blood pH 7.497 H (Temp corrected) Arterial Blood 29.5 L pCO2 (Temp correct) Arterial Blood 71.6 L pO2 (Temp corrected) Arterial Blood 22.3 HCO3 Arterial Blood 0.2 Base Excess Arterial Blood 94.6 L Oxygen Saturation James Test N/A Arterial Blood Right Brachial Gas Puncture Site Arterial 0.6 Blood Carboxyhemo globin Arterial Blood 0.2 Methemoglobin Blood Gas A-a O2 611.9 H Differential Oxyhemoglobin 93.8 Percent Blood Gas 37.0 Temperature Blood Gas 20.0 Respiration Rate Blood Gas Actual 44 Respiration Rate Blood Gas MASK - BIPAP Modality FiO2 100.0 Blood Gas 10 Pressure Support Blood Gas 15/5 IPAP/EPAP Ratio Blood Gas TM Notified Whom Blood Gas 06/10/2019 10:46: Notified Time 46 AM White Blood Count 20.5 H Red Blood Count 5.03 Hemoglobin 15.2 Hematocrit 49.3 H Mean Corpuscular 98.0 Volume Mean Corpuscular 30.2 Hemoglobin Mean Corpuscular 30.8 L Hemoglobin Concen t Red Cell 16.2 H Distribution Width Platelet Count 234 Mean Platelet 12.1 H Volume Immature 0.600 H Granulocytes % Neutrophils % 88.0 H Lymphocytes % 5.2 L Monocytes % 5.8 Eosinophils % 0.0 Basophils % 0.4 Nucleated Red 0.0 Blood Cells % Immature 0.120 H Granulocytes # Neutrophils # 18.0 H Lymphocytes # 1.1 Monocytes # 1.2 H Eosinophils # 0.0 Basophils # 0.1 Nucleated Red 0.0 Blood Cells # Prothrombin Time 14.6 Prothrombin Time 1.1 Ratio INR International 1.13 Normalized Ratio Activated 25.2 Partial Thrombopl ast Time Sodium Level 152 H Potassium Level 5.2 H Chloride Level 114 H Carbon Dioxide 25 Level Anion Gap 13 Blood Urea 82 H Nitrogen Creatinine 1.08 H Est Glomerular Filtrat Rate mL/min Glucose Level 621 *H Calcium Level 9.8 Total Bilirubin 1.0 Direct Bilirubin 0.00 Indirect 1.0 Bilirubin Aspartate Amino 21 Transf (AST/SGOT) Alanine 8 L Aminotransferase (ALT/SGPT) Alkaline 76 Phosphatase Troponin I 0.137 *H B-Type 5960 H Natriuretic Peptide Total Protein 7.2 Albumin 3.6 Globulin 3.60 H Albumin/Globulin 1.00 Ratio Amylase Level 95 Lipase 148 POC Venous 4.3 *H Lactate Bedside Glucose 542 *H Test 06/10/19 12:40 06/10/19 15:09 06/10/19 16:06 06/10/19 18:08 Urine Color YELLOW Urine Clarity SLIGHTLY CLOUDY A Urine pH 6.0 Urine Specific 1.017 [place] Urine Ketones TRACE A Urine Nitrite NEGATIVE Urine Bilirubin NEGATIVE Urine NEGATIVE Urobilinogen Urine Leukocyte NEGATIVE Esterase Urine Microscopic 0 RBC Urine Microscopic 4 WBC Urine Bacteria FEW A Urine Hemoglobin NEGATIVE Urine Glucose 3+ H Urine Total NEGATIVE Protein Lactic Acid Level 6.9 *H 4.4 *H Bedside Glucose 341 H 241 H Troponin I 0.174 *H Test 06/10/19 19:50 06/10/19 21:09 06/10/19 21:58 06/10/19 22:38 Bedside Glucose 130 182 140 Troponin I 0.144 *H Test 06/10/19 23:15 06/10/19 23:17 06/11/19 00:36 06/11/19 04:00 Bedside Glucose 83 88 81 White Blood Count 17.1 H Red Blood Count 3.56 #L Hemoglobin 11.0 #L Hematocrit 36.4 #L Mean Corpuscular 102.2 H Volume Mean Corpuscular 30.9 Hemoglobin Mean Corpuscular 30.2 L Hemoglobin Concen t Red Cell 15.9 H Distribution Width Platelet Count 145 # Mean Platelet 12.7 H Volume Immature 1.400 H Granulocytes % Neutrophils % Lymphocytes % Monocytes % Eosinophils % Basophils % Nucleated Red 0.0 Blood Cells % Immature 0.240 H Granulocytes # Neutrophils # Lymphocytes # Monocytes # Eosinophils # Basophils # Nucleated Red Blood Cells # Sodium Level 159 H Potassium Level 2.8 #*L Chloride Level 129 H Carbon Dioxide 23 Level Anion Gap 7 Blood Urea 49 #H Nitrogen Creatinine 0.74 Est Glomerular Filtrat Rate mL/min Glucose Level 128 # Hemoglobin A1c 8.8 H Calcium Level 8.8 Magnesium Level 2.2 Total Bilirubin 1.2 Direct Bilirubin 0.00 Indirect 1.2 H Bilirubin Aspartate Amino 27 Transf (AST/SGOT) Alanine 17 Aminotransferase (ALT/SGPT) Alkaline 39 L Phosphatase Total Protein 5.6 #L Albumin 2.7 L Globulin 2.90 Albumin/Globulin 0.93 Ratio Triglycerides 107 Level Cholesterol Level 65 L LDL Cholesterol, 22 Calculated HDL Cholesterol 22 L Cholesterol/HDL 2.9 Ratio Thyroid 0.134 L Stimulating Hormone (TSH) Test 06/11/19 04:45 06/11/19 05:30 Lactic Acid Level 3.0 *H Bedside Glucose 118 Medications Medication Current Medications IV Flush (NS 3 ml) 3 ml PER PROTOCOL IV ; Start 06/10/19 at 12:00 Ondansetron HCl (Zofran Inj) 4 mg Q6H PRN IV NAUSEA/VOMITING; Start 06/10/19 at 12:00 Acetaminophen (Tylenol Tab) 650 mg Q6H PRN PO .PAIN 1-3 OR TEMP; Start 06/10/19 at 12:00 Acetaminophen/ Hydrocodone Bitart ([place] (5/325)) 1 tab Q6H PRN PO .PAIN 4-6; Start 06/10/19 at 12:00 Morphine Sulfate (morphine) 2 mg Q4H PRN IV .PAIN 7-10; Start 06/10/19 at 12:00 Docusate Sodium (Colace) 100 mg Q12H PO Last administered on 06/11/19at 00:38; Admin Dose 100 MG; Start 06/10/19 at 12:00 Vancomycin HCl (Vanco Iv Per Pharmacy) VANCOMYCIN PER PHARMACY PER PROTOCOL XX ; Start 06/10/19 at 12:30 Piperacillin Sod/ Tazobactam Sod 100 ml @ 200 mls/hr Q6 IVPB Last administered on 06/11/19at 05:28; Admin Dose 200 MLS/HR; Start 06/10/19 at 18:00 Amiodarone HCl (Cordarone) 100 mg DAILY GTB ; Start 06/11/19 at 09:00 Atorvastatin Calcium (Lipitor) 20 mg QHS GTB Last administered on 06/10/19at 20:40; Admin Dose 20 MG; Start 06/10/19 at 21:00 Levetiracetam (Keppra Liquid) 500 mg BID GTB Last administered on 06/10/19at 20:39; Admin Dose 500 MG; Start 06/10/19 at 21:00 Olanzapine (Zyprexa) 5 mg DAILY GTB ; Start 06/11/19 at 09:00 Polyethylene Glycol (Miralax) 17 gm DAILY GTB ; Start 06/11/19 at 09:00 Miscellaneous Information 1 ea NOTE XX ; Start 06/10/19 at 14:00 Glucose (Glutose) 15 gm Q15M PRN PO DECREASED GLUCOSE; Start 06/10/19 at 14:00 Glucose (Glutose) 22.5 gm Q15M PRN PO DECREASED GLUCOSE; Start 06/10/19 at 14:00 Dextrose (D50w Syringe) 25 ml Q15M PRN IV DECREASED GLUCOSE; Start 06/10/19 at 14:00 Dextrose (D50w Syringe) 50 ml Q15M PRN IV DECREASED GLUCOSE; Start 06/10/19 at 14:00 Glucagon (Glucagen) 1 mg Q15M PRN IM DECREASED GLUCOSE; Start 06/10/19 at 14:00 Glucose (Glutose) 15 gm Q15M PRN BUCCAL DECREASED GLUCOSE; Start 06/10/19 at 14:00 Norepinephrine 250 ml @ 1.875 mls/ hr TITRATE IV ; Start 06/10/19 at 15:00 Albuterol/ Ipratropium (Duoneb) 3 ml Q6HWA RESP THERAPY HHN Last administered on 06/10/19at 20:06; Admin Dose 3 ML; Start 06/10/19 at 20:00 Albuterol/ Ipratropium (Duoneb) 3 ml Q2H RESP THERAPY PRN HHN wheezing; Start 06/10/19 at 15:30 Budesonide (Pulmicort (Neb)) 0.5 mg BID RESP THERAPY HHN Last administered on 06/10/19at 20:06; Admin Dose 0.5 MG; Start 06/10/19 at 20:00 IV Flush (NS 10 ml) 10 ml [id number] PRN IV Line Patency; Start 06/10/19 at 16:00 Fluvoxamine Maleate (Fluvoxamine Maleate) 25 mg DAILY GTB ; Start 06/11/19 at 09:00 Phenylephrine HCl 250 ml @ 75 mls/hr TITRATE IV Last administered on 06/11/19at 05:41; Admin Dose 75 MLS/HR; Start 06/10/19 at 21:00 Vancomycin/Sodium Chloride 250 ml @ 125 mls/hr Q24H IVPB ; Start 06/11/19 at 11:00 Insulin Aspart (Novolog Insulin Pen) NOVOLOG *MODERATE* ALGORI... Q4 SC ; Start 06/11/19 at 05:00 Potassium Chloride 100 ml @ 50 mls/hr Q2H IVPB Last administered on 06/11/19at 08:43; Admin Dose 50 MLS/HR; Start 06/11/19 at 07:00; Stop 06/11/19 at 10:59 Aspirin (Aspirin) 81 mg DAILY PEG ; Start 06/11/19 at 09:00 Dextrose 1,000 ml @ 50 mls/hr Q20H IV ; Start 06/11/19 at 09:00 Heparin Sodium (Porcine) (Heparin (5000 Units/1ml)) 5,000 unit Q8 SC ; Start 06/11/19 at 14:00 CHARAN LAUREANO Jun 11, 2019 09:22
[2019-06-11] MEDS: BUDESONIDE (NEB) 0.5MG/2ML AMP HHN SCH ×2 (09:50→19:36)
[2019-06-11] MEDS ORDERED: VANCOMYCIN 750 MG (PMX) 250 ML IVPB SCH (11:00)
--- NOTE | 2019-06-11 12:23 | CONSI ---
Assessment/Plan Assessment/Plan Assessment/Plan (Recall) 84 F c/ dementia and other comorbidities, who presents for evaluation of respiratory Sx.. 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 Upon further clarification, it is noted that the lesion was apparent on previous MRI brain (2013)..decreasing the likelihood of hemorrhage.. The patient is presently obtunded, which likely represents an acute toxic- metabolic on chronic encephalopathy that is multifactorial.. An acute and focal RN CRITICAL CARE process is less likely.. P: OK to defer adnl neuroimaging for now Continued medical management and supportive care per primary Limit sedating medications where possible Agree w/ Keppra 500mg bid for now Consider EEG should her mental status begin to noticeably fluctuate Will follow clinically Consultation Date/Type/Reason Admit Date/Time 06/10/2019 Type of Consult Neurology Reason for Consultation ams, abnl head CT Requesting Provider: MALINI GOMEZ Date/Time of Note DATE: 06/11/19 TIME: 12:12 Hx of Present Illness Patient is unable to contribute a Hx. It is elsewhere noted: Patient is a elderly [place] female with a past medical history significant for end-stage dementia, being nonverbal, bedridden, hypertension, A. fib, COPD, diabetes mellitus, dyslipidemia who presents to [facility] from nursing home facility for worsening shortness of breath. Pulse ox initially was 80%, currently patient is on BiPAP. Patient is baseline encephalopathic and being nonverbal according to family. Further HPI cannot be given as patient mental status is severely compromised chronically. Head CT showed an ovoid hyperdensity concerning for hemorrhage, for which neurology is consulted. Objective Exam Vitals Vital Signs Date Temp Pulse Resp B/P (MAP) Pulse Ox O2 O2 Flow FiO2 Time Delivery Rate 06/11/19 73 22 98/45 (62) 99 11:45 06/11/19 BIPAP 11:30 06/11/19 99.1 08:00 06/11/19 60 05:20 06/10/19 15 10:25 Intake and Output 06/10/19 06/10/19 06/11/19 1515:00 23:00 07:00 IntakeIntake Total 681.75 ml 1458.8 ml OutputOutput Total 180 ml 300 ml BalanceBalance 501.75 ml 1158.8 ml Exam PE: Gen Appearance: No Apparent Distress HEENT: BiPAP Cardiovascular: Regular rate Abdomen: Soft Extremities: Dry NE: The patient was obtunded and nonverbal. Cranial nerve examination was limited by mental status. Pupils were equal and reactive to light. There was no afferent pupillary defect. Funduscopic examination was limited. Face was grossly symmetric, w/ present corneal re flexes. Tone was increased. Muscle bulk was normal. I did not see fasciculations. The patient withdrew to noxious stimulation x 4. Coordination and gait testing was limited by mental status. Arm and leg reflexes were symmetric. Riley's sign was absent. Plantar responses were flexor. Results Result Diagram: 06/11/19 0400 06/11/19 0400 Results 24hrs Laboratory Tests Test 06/10/19 12:40 06/10/19 15:09 06/10/19 16:06 06/10/19 18:08 Urine Color YELLOW Urine Clarity SLIGHTLY CLOUDY A Urine pH 6.0 Urine Specific 1.017 Surprise Urine Ketones TRACE A Urine Nitrite NEGATIVE Urine Bilirubin NEGATIVE Urine NEGATIVE Urobilinogen Urine Leukocyte NEGATIVE Esterase Urine 0 Microscopic RBC Urine 4 Microscopic WBC Urine Bacteria FEW A Urine Hemoglobin NEGATIVE Urine Glucose 3+ H Urine Total NEGATIVE Protein Lactic Acid 6.9 *H 4.4 *H Level Bedside Glucose 341 H 241 H Troponin I 0.174 *H Test 06/10/19 19:50 06/10/19 21:09 06/10/19 21:58 06/10/19 22:38 Bedside Glucose 130 182 140 Troponin I 0.144 *H Test 06/10/19 23:15 06/10/19 23:17 06/11/19 00:36 06/11/19 04:00 Bedside Glucose 83 88 81 White Blood 17.1 H Count Red Blood Count 3.56 #L Hemoglobin 11.0 #L Hematocrit 36.4 #L Mean Corpuscular 102.2 H Volume Mean Corpuscular 30.9 Hemoglobin Mean Corpuscular 30.2 L Hemoglobin Christina nt Red Cell 15.9 H Distribution Width Platelet Count 145 # Mean Platelet 12.7 H Volume Immature 1.400 H Granulocytes % Neutrophils % Segmented 6 L Neutrophils % (Manual) Band Neutrophils 55 H % (Manual) Lymphocytes % Lymphocytes % 14 L (Manual) Reactive 2 H Lymphocytes % (Manual) Monocytes % Monocytes % 4 (Manual) Eosinophils % Basophils % Metamyelocytes % 9 H (manual) Myelocytes % 10 H (Manual) Nucleated Red 0.0 Blood Cells % Immature 0.240 H Granulocytes # Neutrophils # Neutrophils # 2.6 (Manual) Band Neutrophils 9.4 H # Lymphocytes 2.3 (Manual) Lymphocytes # Reactive 0.3 H Lymphocytes # Monocytes # Monocytes # 0.6 (Manual) Eosinophils # Basophils # Metamyelocytes # 1.5 H Myelocytes # 1.7 H Nucleated Red Blood Cells # Platelet NORMAL Estimate Basophilic 1+ Stippling Anisocytosis 1+ Microcytosis 1+ Macrocytosis 1+ Sodium Level 159 H Potassium Level 2.8 #*L Chloride Level 129 H Carbon Dioxide 23 Level Anion Gap 7 Blood Urea 49 #H Nitrogen Creatinine 0.74 Est Glomerular Filtrat Rate mL/min Glucose Level 128 # Hemoglobin A1c 8.8 H Calcium Level 8.8 Magnesium Level 2.2 Total Bilirubin 1.2 Direct Bilirubin 0.00 Indirect 1.2 H Bilirubin Aspartate Amino 27 Transf (AST/SGOT ) Alanine 17 Aminotransferase (ALT/SGPT) Alkaline 39 L Phosphatase Total Protein 5.6 #L Albumin 2.7 L Globulin 2.90 Albumin/Globulin 0.93 Ratio Triglycerides 107 Level Cholesterol 65 L Level LDL Cholesterol, 22 Calculated HDL Cholesterol 22 L Cholesterol/HDL 2.9 Ratio Thyroid 0.134 L Stimulating Hormone (TSH) Test 06/11/19 04:45 06/11/19 05:30 06/11/19 09:15 06/11/19 09:33 Lactic Acid 3.0 *H Level Bedside Glucose 118 126 Blood Gas Blood arterial Specimen Source Arterial Blood 06/11/2019 9:39: Date Drawn 30 AM Arterial Blood 7.455 H pH (Temp corrected) Arterial Blood 31.3 L pCO2 (Temp correct) Arterial Blood 72.8 L pO2 (Temp corrected) Arterial Blood 21.5 L HCO3 Arterial Blood -1.6 Base Excess Arterial Blood 95.1 Oxygen Saturatio n James Test ACCEPTAB Arterial Blood Right Radial Gas Puncture Site Arterial 0.3 Blood Carboxyhem oglobin Arterial Blood 0.2 Methemoglobin Blood Gas A-a O2 320.6 H Differential Oxyhemoglobin 94.6 Percent Blood Gas 37.0 Temperature Blood Gas 16.0 Respiration Rate Blood Gas Actual 33 Respiration Rate Blood Gas MASK - BIPAP Modality FiO2 60.0 Blood Gas 10 Pressure Support Blood Gas 15/5 IPAP/EPAP Ratio Blood Gas TM Notified Whom Blood Gas 06/11/2019 9:48: Notified Time 20 AM Past Medical History Medical History: high cholesterol, hypertension, other (Dementia, Atrial fibrillation ) Home Meds Reported Medications Pantoprazole* (Protonix*) 40 Mg Tablet.dr, 40 MG PO DAILY, TAB 09/03/14 Donepezil* (Aricept*) 5 Mg Tablet, 5 MG PO DAILY, TAB 09/03/14 Atorvastatin Calcium* (Atorvastatin Calcium*) 20 Mg Tablet, 20 MG PO HS, TAB 09/03/14 Saxagliptin Hcl/Metformin Hcl (KOMBIGLYZE XR 5-500 MG TABLET) 1 Each Tbmp.24hr, 1 EACH PO DAILY 09/03/14 Medications Current Medications IV Flush (NS 3 ml) 3 ml PER PROTOCOL IV ; Start 06/10/19 at 12:00 Ondansetron HCl (Zofran Inj) 4 mg Q6H PRN IV NAUSEA/VOMITING; Start 06/10/19 at 12:00 Acetaminophen (Tylenol Tab) 650 mg Q6H PRN PO .PAIN 1-3 OR TEMP; Start 06/10/19 at 12:00 Acetaminophen/ Hydrocodone Bitart ([place] (5/325)) 1 tab Q6H PRN PO .PAIN 4-6; Start 06/10/19 at 12:00 Morphine Sulfate (morphine) 2 mg Q4H PRN IV .PAIN 7-10; Start 06/10/19 at 12:00 Docusate Sodium (Colace) 100 mg Q12H PO Last administered on 06/11/19at 00:38; Admin Dose 100 MG; Start 06/10/19 at 12:00 Vancomycin HCl (Vanco Iv Per Pharmacy) VANCOMYCIN PER PHARMACY PER PROTOCOL XX ; Start 06/10/19 at 12:30 Piperacillin Sod/ Tazobactam Sod 100 ml @ 200 mls/hr Q6 IVPB Last administered on 06/11/19at 05:28; Admin Dose 200 MLS/HR; Start 06/10/19 at 18:00 Amiodarone HCl (Cordarone) 100 mg DAILY GTB Last administered on 06/11/19at 09:11; Admin Dose 100 MG; Start 06/11/19 at 09:00 Atorvastatin Calcium (Lipitor) 20 mg QHS GTB Last administered on 06/10/19at 20:40; Admin Dose 20 MG; Start 06/10/19 at 21:00 Levetiracetam (Keppra Liquid) 500 mg BID GTB Last administered on 06/11/19at 09:10; Admin Dose 500 MG; Start 06/10/19 at 21:00 Olanzapine (Zyprexa) 5 mg DAILY GTB Last administered on 06/11/19at 09:10; Admin Dose 5 MG; Start 06/11/19 at 09:00 Polyethylene Glycol (Miralax) 17 gm DAILY GTB Last administered on 06/11/19at 09:11; Admin Dose 17 GM; Start 06/11/19 at 09:00 Miscellaneous Information 1 ea NOTE XX ; Start 06/10/19 at 14:00 Glucose (Glutose) 15 gm Q15M PRN PO DECREASED GLUCOSE; Start 06/10/19 at 14:00 Glucose (Glutose) 22.5 gm Q15M PRN PO DECREASED GLUCOSE; Start 06/10/19 at 14:00 Dextrose (D50w Syringe) 25 ml Q15M PRN IV DECREASED GLUCOSE; Start 06/10/19 at 14:00 Dextrose (D50w Syringe) 50 ml Q15M PRN IV DECREASED GLUCOSE; Start 06/10/19 at 14:00 Glucagon (Glucagen) 1 mg Q15M PRN IM DECREASED GLUCOSE; Start 06/10/19 at 14:00 Glucose (Glutose) 15 gm Q15M PRN BUCCAL DECREASED GLUCOSE; Start 06/10/19 at 14:00 Norepinephrine 250 ml @ 1.875 mls/ hr TITRATE IV ; Start 06/10/19 at 15:00 Albuterol/ Ipratropium (Duoneb) 3 ml Q6HWA RESP THERAPY HHN Last administered on 06/10/19at 20:06; Admin Dose 3 ML; Start 06/10/19 at 20:00 Albuterol/ Ipratropium (Duoneb) 3 ml Q2H RESP THERAPY PRN HHN wheezing; Start 06/10/19 at 15:30 Budesonide (Pulmicort (Neb)) 0.5 mg BID RESP THERAPY HHN Last administered on 06/10/19at 20:06; Admin Dose 0.5 MG; Start 06/10/19 at 20:00 IV Flush (NS 10 ml) 10 ml [id number] PRN IV Line Patency; Start 06/10/19 at 16:00 Fluvoxamine Maleate (Fluvoxamine Maleate) 25 mg DAILY GTB Last administered on 06/11/19at 09:10; Admin Dose 25 MG; Start 06/11/19 at 09:00 Phenylephrine HCl 250 ml @ 75 mls/hr TITRATE IV Last administered on 06/11/19at 09:37; Admin Dose 37.5 MLS/HR; Start 06/10/19 at 21:00 Vancomycin/Sodium Chloride 250 ml @ 125 mls/hr Q24H IVPB Last administered on 06/11/19at 11:01; Admin Dose 125 MLS/HR; Start 06/11/19 at 11:00 Insulin Aspart (Novolog Insulin Pen) NOVOLOG *MODERATE* ALGORI... Q4 SC ; Start 06/11/19 at 05:00 Aspirin (Aspirin) 81 mg DAILY PEG Last administered on 06/11/19at 09:13; Admin Dose 81 MG; Start 06/11/19 at 09:00 Dextrose 1,000 ml @ 50 mls/hr Q20H IV Last administered on 06/11/19at 09:08; Admin Dose 50 MLS/HR; Start 06/11/19 at 09:00 Heparin Sodium (Porcine) (Heparin (5000 Units/1ml)) 5,000 unit Q8 SC ; Start 06/11/19 at 14:00 Allergies: Coded Allergies: No Known Allergy (Verified , 09/10/14) Past Surgical History Past Surgical Hx: other (not available ) Social History Alcohol Use: none Smoking Status: Unknown if ever smoked Drug Use: none SHANNON LEGER Jun 11, 2019 12:22
--- NOTE | 2019-06-11 13:03 | CONS ---
Assessment/Plan Assessment/Plan Assessment/Plan (Daily) 1. acute Hypernatremia due to severe dehydration 2. acute Hyperkalemia due to FLOYD 3. acute kidney injury on CKD III due to ATN from sepsis and Prerenal azotemia 4 . Septic shock due to multifocal PNA 5. Acute hypoxic respiratory failure due to PNA and Septic shock On BIPAP 6. H/O severe dementia 7. H/O HTN 8. H/O HL 9. SNF resident 10. acute on chronic encephalopathy 11 h/o Dysphagia S/p G tube placement Plan: Na trended upto 154, K 3.3- change IVF to D5w with KCL 20mEQ at 80 cc/hr currenlty on IV abx zosyn, Renally dose all abx and monitor electrolytes BIPAP as per pulmonary will follow up Consultation Date/Type/Reason Admit Date/Time Jun 10, 2019 at 12:38 Initial Consult Date 06/11/19 Type of Consult NEPHROLOGY Requesting Provider: MALINI GOMEZ Date/Time of Note DATE: 06/11/19 TIME: 13:03 Exam/Review of Systems Exam Vitals Vital Signs Date Temp Pulse Resp B/P (MAP) Pulse Ox O2 O2 Flow FiO2 Time Delivery Rate 06/11/19 79 12:00 06/11/19 22 98/45 (62) 99 11:45 06/11/19 BIPAP 11:30 06/11/19 99.1 08:00 06/11/19 60 05:20 06/10/19 15 10:25 Intake and Output 06/10/19 06/10/19 06/11/19 1515:00 23:00 07:00 IntakeIntake Total 681.75 ml 1626.3 ml OutputOutput Total 180 ml 400 ml BalanceBalance 501.75 ml 1226.3 ml Exam General: moderate distress on BIPAP Mentation: Patient is arousable but not oriented, not alert Eyes: MARKO, EOMI Neck: Supple, no JVD, no LAD Respiratory: Coarse to auscultation bilaterally, no wheezing Cardiovascular: S1 S2 tachycardia, no murmur Gastrointestinal: soft, NT, ND, Thin abdomen, BS+ Neurological: moves extremities to only noxious stimuli Skin: No new skin lesions, PEG tube site present Results Result Diagram: 06/11/19 0400 06/11/19 0400 Results 24hrs Laboratory Tests Test 06/10/19 15:09 06/10/19 16:06 06/10/19 18:08 06/10/19 19:50 Bedside Glucose 341 H 241 H 130 Lactic Acid Level 4.4 *H Troponin I 0.174 *H Test 06/10/19 21:09 06/10/19 21:58 06/10/19 22:38 06/10/19 23:15 Bedside Glucose 182 140 83 Troponin I 0.144 *H Test 06/10/19 23:17 06/11/19 00:36 06/11/19 04:00 06/11/19 04:45 Bedside Glucose 88 81 White Blood Count 17.1 H Red Blood Count 3.56 #L Hemoglobin 11.0 #L Hematocrit 36.4 #L Mean Corpuscular 102.2 H Volume Mean Corpuscular 30.9 Hemoglobin Mean Corpuscular 30.2 L Hemoglobin Concen t Red Cell 15.9 H Distribution Width Platelet Count 145 # Mean Platelet 12.7 H Volume Immature 1.400 H Granulocytes % Neutrophils % Segmented 6 L Neutrophils % (Manual) Band Neutrophils 55 H % (Manual) Lymphocytes % Lymphocytes % 14 L (Manual) Reactive 2 H Lymphocytes % (Manual) Monocytes % Monocytes % 4 (Manual) Eosinophils % Basophils % Metamyelocytes % 9 H (manual) Myelocytes % 10 H (Manual) Nucleated Red 0.0 Blood Cells % Immature 0.240 H Granulocytes # Neutrophils # Neutrophils # 2.6 (Manual) Band Neutrophils 9.4 H # Lymphocytes 2.3 (Manual) Lymphocytes # Reactive 0.3 H Lymphocytes # Monocytes # Monocytes # 0.6 (Manual) Eosinophils # Basophils # Metamyelocytes # 1.5 H Myelocytes # 1.7 H Nucleated Red Blood Cells # Platelet Estimate NORMAL Basophilic 1+ Stippling Anisocytosis 1+ Microcytosis 1+ Macrocytosis 1+ Sodium Level 159 H Potassium Level 2.8 #*L Chloride Level 129 H Carbon Dioxide 23 Level Anion Gap 7 Blood Urea 49 #H Nitrogen Creatinine 0.74 Est Glomerular Filtrat Rate mL/min Glucose Level 128 # Hemoglobin A1c 8.8 H Calcium Level 8.8 Magnesium Level 2.2 Total Bilirubin 1.2 Direct Bilirubin 0.00 Indirect 1.2 H Bilirubin Aspartate Amino 27 Transf (AST/SGOT) Alanine 17 Aminotransferase (ALT/SGPT) Alkaline 39 L Phosphatase Total Protein 5.6 #L Albumin 2.7 L Globulin 2.90 Albumin/Globulin 0.93 Ratio Triglycerides 107 Level Cholesterol Level 65 L LDL Cholesterol, 22 Calculated HDL Cholesterol 22 L Cholesterol/HDL 2.9 Ratio Thyroid 0.134 L Stimulating Hormone (TSH) Lactic Acid Level 3.0 *H Test 06/11/19 05:30 06/11/19 09:15 06/11/19 09:33 Bedside Glucose 118 126 Blood Gas Blood arterial Specimen Source Arterial Blood 06/11/2019 9:39:3 Date Drawn 0 AM Arterial Blood pH 7.455 H (Temp corrected) Arterial Blood 31.3 L pCO2 (Temp correct) Arterial Blood 72.8 L pO2 (Temp corrected) Arterial Blood 21.5 L HCO3 Arterial Blood -1.6 Base Excess Arterial Blood 95.1 Oxygen Saturation James Test ACCEPTAB Arterial Blood Right Radial Gas Puncture Site Arterial 0.3 Blood Carboxyhemo globin Arterial Blood 0.2 Methemoglobin Blood Gas A-a O2 320.6 H Differential Oxyhemoglobin 94.6 Percent Blood Gas 37.0 Temperature Blood Gas 16.0 Respiration Rate Blood Gas Actual 33 Respiration Rate Blood Gas MASK - BIPAP Modality FiO2 60.0 Blood Gas 10 Pressure Support Blood Gas 15/5 IPAP/EPAP Ratio Blood Gas TM Notified Whom Blood Gas 06/11/2019 9:48:2 Notified Time 0 AM Medications Medication Current Medications IV Flush (NS 3 ml) 3 ml PER PROTOCOL IV ; Start 06/10/19 at 12:00 Ondansetron HCl (Zofran Inj) 4 mg Q6H PRN IV NAUSEA/VOMITING; Start 06/10/19 at 12:00 Acetaminophen (Tylenol Tab) 650 mg Q6H PRN PO .PAIN 1-3 OR TEMP; Start 06/10/19 at 12:00 Acetaminophen/ Hydrocodone Bitart (Delta (5/325)) 1 tab Q6H PRN PO .PAIN 4-6; Start 06/10/19 at 12:00 Morphine Sulfate (morphine) 2 mg Q4H PRN IV .PAIN 7-10; Start 06/10/19 at 12:00 Docusate Sodium (Colace) 100 mg Q12H PO Last administered on 06/11/19at 00:38; Admin Dose 100 MG; Start 06/10/19 at 12:00 Vancomycin HCl (Vanco Iv Per Pharmacy) VANCOMYCIN PER PHARMACY PER PROTOCOL XX ; Start 06/10/19 at 12:30 Piperacillin Sod/ Tazobactam Sod 100 ml @ 200 mls/hr Q6 IVPB Last administered on 06/11/19at 05:28; Admin Dose 200 MLS/HR; Start 06/10/19 at 18:00 Amiodarone HCl (Cordarone) 100 mg DAILY GTB Last administered on 06/11/19at 09:11; Admin Dose 100 MG; Start 06/11/19 at 09:00 Atorvastatin Calcium (Lipitor) 20 mg QHS GTB Last administered on 06/10/19at 20:40; Admin Dose 20 MG; Start 06/10/19 at 21:00 Levetiracetam (Keppra Liquid) 500 mg BID GTB Last administered on 06/11/19at 09:10; Admin Dose 500 MG; Start 06/10/19 at 21:00 Olanzapine (Zyprexa) 5 mg DAILY GTB Last administered on 06/11/19at 09:10; Admin Dose 5 MG; Start 06/11/19 at 09:00 Polyethylene Glycol (Miralax) 17 gm DAILY GTB Last administered on 06/11/19at 09:11; Admin Dose 17 GM; Start 06/11/19 at 09:00 Miscellaneous Information 1 ea NOTE XX ; Start 06/10/19 at 14:00 Glucose (Glutose) 15 gm Q15M PRN PO DECREASED GLUCOSE; Start 06/10/19 at 14:00 Glucose (Glutose) 22.5 gm Q15M PRN PO DECREASED GLUCOSE; Start 06/10/19 at 14:00 Dextrose (D50w Syringe) 25 ml Q15M PRN IV DECREASED GLUCOSE; Start 06/10/19 at 14:00 Dextrose (D50w Syringe) 50 ml Q15M PRN IV DECREASED GLUCOSE; Start 06/10/19 at 14:00 Glucagon (Glucagen) 1 mg Q15M PRN IM DECREASED GLUCOSE; Start 06/10/19 at 14:00 Glucose (Glutose) 15 gm Q15M PRN BUCCAL DECREASED GLUCOSE; Start 06/10/19 at 14:00 Norepinephrine 250 ml @ 1.875 mls/ hr TITRATE IV ; Start 06/10/19 at 15:00 Albuterol/ Ipratropium (Duoneb) 3 ml Q6HWA RESP THERAPY HHN Last administered on 06/11/19 08:10; Admin Dose 3 ML; Start 06/10/19 at 20:00 Albuterol/ Ipratropium (Duoneb) 3 ml Q2H RESP THERAPY PRN HHN wheezing; Start 06/10/19 at 15:30 Budesonide (Pulmicort (Neb)) 0.5 mg BID RESP THERAPY HHN Last administered on 06/11/19at 09:50; Admin Dose 0.5 MG; Start 06/10/19 at 20:00 IV Flush (NS 10 ml) 10 ml [id number] PRN IV Line Patency; Start 06/10/19 at 16:00 Fluvoxamine Maleate (Fluvoxamine Maleate) 25 mg DAILY GTB Last administered on 06/11/19 09:10; Admin Dose 25 MG; Start 06/11/19 at 09:00 Phenylephrine HCl 250 ml @ 75 mls/hr TITRATE IV Last administered on 06/11/19 09:37; Admin Dose 37.5 MLS/HR; Start 06/10/19 at 21:00 Vancomycin/Sodium Chloride 250 ml @ 125 mls/hr Q24H IVPB Last administered on 06/11/19at 11:01; Admin Dose 125 MLS/HR; Start 06/11/19 at 11:00 Insulin Aspart (Novolog Insulin Pen) NOVOLOG *MODERATE* ALGORI... Q4 SC ; Start 06/11/19 at 05:00 Aspirin (Aspirin) 81 mg DAILY PEG Last administered on 06/11/19at 09:13; Admin Dose 81 MG; Start 06/11/19 at 09:00 Dextrose 1,000 ml @ 50 mls/hr Q20H IV Last administered on 06/11/19at 09:08; Admin Dose 50 MLS/HR; Start 06/11/19 at 09:00 Heparin Sodium (Porcine) (Heparin (5000 Units/1ml)) 5,000 unit Q8 SC ; Start 06/11/19 at 14:00 Miscellaneous Information (*Rx Drug Level Order Reminder*) VANCO TR AT 1000 1000 ONCE XX ; Start 06/13/19 at 10:00; Stop 06/13/19 at 10:01 GERMAN FELIX MD Jun 11, 2019 13:03
[2019-06-11] MEDS: BALSAM PERU/CASTOR OIL 60 GM TUBE TOP SCH (14:09)
[2019-06-11] MEDS: D5W + KCL 20 MEQ 1,000 ML IV SCH ×2 (14:17→20:52)
[2019-06-11] MEDS: HEPARIN 5,000 UNIT/1 ML VIAL SC SCH ×2 (14:24→20:26)
[2019-06-11] MEDS: ATORVASTATIN 20 MG TAB GTB SCH (20:23)
--- NOTE | 2019-06-11 20:32 | PN ---
DATE: 06/11/2019 SUBJECTIVE: The patient is on face mask and Philippe-Synephrine drip, afebrile. T-max yesterday was 102. 1. WBC 17.1, H and H 11 and 36.4, platelets 145, bands, 55, sodium 159, potassium 2.8, BUN 49, creatinin e 0.74. Lactic acid went down to 3 from 4.4. MICROBIOLOGY: Blood cultures negative. Urine culture growing gram-negative rods. DIAGNOSTICS: Chest x-ray this morning revealed stable left greater than right lung infiltrates, most suggestive of pneumonia. INDWELLINGS: PEG, Dial, PICC line. ANTIMICROBIALS: 1. IV vancomycin. 2. IV Zosyn. PHYSICAL EXAMINATION: GENERAL: This is a chronically ill-appearing, elderly woman who is lethargic, arousable, in no distress. HEENT: Head atraumatic, normocephalic. Sclerae anicteric. Buccal mucosa dry. NECK: Supple. CHEST: Rise symmetrical. Breath sounds diminished to bases. HEART: S1, S2. ABDOMEN: Soft, bowel sounds present. EXTREMITIES: Cyanotic, cool to touch. ASSESSMENT: 1. Severe sepsis with shock. 2. Gram-negative aman urinary tract infection. 3. Healthcare-associated pneumonia, possibly aspirated. 4. Respiratory failure. 5. Brain mass. 6. Diabetes. 7. Chronic atrial fibrillation. 8. Non-ST elevation myocardial infarction. PLAN: The patient remains hemodynamically unstable. She is covered with appropriate antibiotics. U rine culture pending. Continue present care and management per primary team and consultants. Neuros urgical recommendations noted. Dictated By: JACKIE CORTÉS [employer]ET[employer] MANAGER for LARISSA SOTO/NTS Conf#: [id number] DID#: [id number] CC: MALINI GOMEZ MD;*EndCC*
[2019-06-12] VITALS (101 sets, daily range): BP systolic 60–160; BP diastolic 43–137; PULSE 75–170; RESP 12–43
[2019-06-12] MEDS ORDERED: FUROSEMIDE 20 MG INJ ONE (00:39)
[2019-06-12] MEDS: PIPER-TAZO 3.375 GM IV (PMX) 100 ML IVPB SCH ×2 (00:41→05:52)
[2019-06-12] MEDS: DOCUSATE SODIUM 100 MG CAP PO SCH ×3 (00:42→23:22)
[2019-06-12] MEDS: INSULIN ASPART [NOVOLOG] 3 ML PEN SC SCH ×6 (00:55→21:01)
[2019-06-12] MEDS ORDERED: FUROSEMIDE 20 MG INJ IV ONE (01:00)
[2019-06-12] MEDS: PHENYLephrine 20MG IN 250 ML 250 ML IV SCH ×3 (04:54→13:52)
[2019-06-12] MEDS: HEPARIN 5,000 UNIT/1 ML VIAL SC SCH ×3 (06:01→21:35)
[2019-06-12] MEDS ORDERED: VECURONIUM 10 MG VIAL ONE (07:00)
[2019-06-12] MEDS ORDERED: ETOMIDATE 20 MG INJ ONE (07:00)
[2019-06-12] MEDS: ALBUTEROL/IPRATROPIUM (NEB) 3 ML AMP HHN SCH (08:02)
[2019-06-12] MEDS: BUDESONIDE (NEB) 0.5MG/2ML AMP HHN SCH ×2 (08:02→20:37)
[2019-06-12] MEDS: POLYETHYLENE GLYCOL 17 GM PACKET GTB SCH (09:00)
[2019-06-12] MEDS: AMIODARONE 200 MG TAB GTB SCH (09:00)
[2019-06-12] MEDS ORDERED: AMIODARONE 900 MG in DEXTROSE 5% 482 ML IV SCH (09:00)
[2019-06-12] MEDS ORDERED: AMIODARONE 150MG/D5W BOLUS 100 ML IV ONE (09:00)
[2019-06-12] MEDS: LEVETIRACETAM (100 MG/ML) 5ML CUP GTB SCH ×2 (09:25→20:17)
[2019-06-12] MEDS: OLANZAPINE 5 MG TAB GTB SCH (09:25)
[2019-06-12] MEDS: FLUVOXAMINE MALEATE 25 MG TABLET GTB SCH (09:25)
[2019-06-12] MEDS: BALSAM PERU/CASTOR OIL 60 GM TUBE TOP SCH (09:25)
[2019-06-12] MEDS: ASPIRIN 81 MG TAB PEG SCH (09:25)
--- NOTE | 2019-06-12 09:30 | CONS ---
Assessment/Plan Assessment/Plan Assessment/Plan (Daily) Chest x-ray showing worsening pneumonia mostly involving left lung. ABG showing persistent severe hypoxemia. Patient is currently on phenylephrine drip at 5 mics per minute. Amiodarone drip will be started. BiPAP setting; 15/5 100% FiO2. Assessment and recommendations; 1. Patient with history of advanced dementia admitted with severe bilateral pneumonia with worsening hypoxemia and leukocytosis. 2. History of A. fib with RVR now. 3. Worsening thrombocytopenia. 4. Worsening hypernatremia. 5. UTI. Patient will need to be intubated. At this point I would recommend holding off any diuresis. Clinical findings are consistent with severe pneumonia rather than CHF. Monitor renal function. Monitor serum sodium level. Continue free water for correction of hypernatremia. Prognosis is poor. 35 minutes of critical care time was spent evaluating patient. Consultation Date/Type/Reason Admit Date/Time Jun 10, 2019 at 12:38 Initial Consult Date 06/11/19 Type of Consult Pulmonary/critical care Patient is an 84-year-old [place] lady who was transferred to to the hospital from senior living with hypoxemia. Upon evaluation patient is been diagnosed with sepsis due to pneumonia. Patient has advanced dementia and is unable to give any history by herself whatsoever. Patient however is appearing tachypneic. Past medical history; 1. History of chronic atrial fibrillation. 2. Advanced dementia. 3. History of G-tube placement. 4. History of diabetes. 5. History of hypertension. Medications; reviewed. Allergies; none. Social history, family history, occupational history is are not available. Review of systems; unable to be obtained. General exam; elderly woman, on BiPAP. Noncommunicative. Tachypneic. Requesting Provider: MALINI GOMEZ Date/Time of Note DATE: 06/12/19 TIME: 09:26 24 HR Interval Summary Free Text/Dictation Patient's condition is critical. Getting progressively more hypoxemic. Patient also is in A. fib with RVR. General exam; elderly woman, noncommunicative. Tachypneic. Tachycardic. Exam/Review of Systems Exam Vitals Vital Signs Date Temp Pulse Resp B/P (MAP) Pulse Ox O2 O2 Flow FiO2 Time Delivery Rate 06/12/19 154 09:00 06/12/19 26 124/62 06:15 (82) 06/12/19 100 BIPAP 06:00 06/12/19 100 05:10 06/12/19 98.9 04:00 06/10/19 15 10:25 Intake and Output 06/11/19 06/11/19 06/12/19 1515:00 23:00 07:00 IntakeIntake Total 1515.0 ml 887.5 ml 590 ml OutputOutput Total 575 ml 490 ml 670 ml BalanceBalance 940.0 ml 397.5 ml -80 ml Exam H ENT exam; supple neck, no lymphadenopathy. No JVD. Pupils are small bilaterally. On BiPAP. Chest exam; diminished breath sounds throughout. S1-S2 audible, no murmurs. Irregular rhythm. Tachycardic. Abdomen exam; soft, scaphoid. No organomegaly. Bowel sounds are audible. Extremity exam; no peripheral edema. Patient does have patchy ecchymosis. [employer] exam; patient remains noncommunicative. Results Result Diagram: 06/12/19 0400 06/12/19 0400 Results 24hrs Laboratory Tests Test 06/11/19 09:33 06/11/19 17:56 06/11/19 17:57 06/11/19 20:17 Bedside Glucose 126 199 163 Sodium Level 154 H Potassium Level 3.3 L Chloride Level 127 H Carbon Dioxide 23 Level Anion Gap 4 L Blood Urea 37 #H Nitrogen Creatinine 0.52 Glucose Level 202 Calcium Level 7.8 L Phosphorus Level 1.9 L Albumin 2.5 L Test 06/12/19 00:50 06/12/19 01:04 06/12/19 04:00 06/12/19 05:59 Bedside Glucose 197 184 Blood Gas Blood arterial Specimen Source Arterial Blood 06/12/2019 1:18:2 Date Drawn 8 AM Arterial Blood pH 7.389 (Temp corrected) Arterial Blood 38.1 pCO2 (Temp correct) Arterial Blood 62.6 L pO2 (Temp corrected) Arterial Blood 22.5 HCO3 Arterial Blood -2.1 Base Excess Arterial Blood 91.6 L Oxygen Saturation James Test ACCEPTAB Arterial Blood Right Radial Gas Puncture Site Arterial 0.1 Blood Carboxyhemo globin Arterial Blood 0.2 Methemoglobin Blood Gas A-a O2 612.3 H Differential Oxyhemoglobin 91.3 L Percent Blood Gas 37.0 Temperature Blood Gas 16.0 Respiration Rate Blood Gas Actual 30 Respiration Rate Blood Gas MASK - BIPAP Modality FiO2 100.0 Blood Gas 0.7 Inspiratory Time Blood Gas 15/5 IPAP/EPAP Ratio Blood Gas AA Notified Whom Blood Gas 06/12/2019 1:31:3 Notified Time 8 AM White Blood Count 21.7 #H Red Blood Count 3.51 L Hemoglobin 10.9 L Hematocrit 35.7 L Mean Corpuscular 101.7 H Volume Mean Corpuscular 31.1 Hemoglobin Mean Corpuscular 30.5 L Hemoglobin Concen t Red Cell 16.1 H Distribution Width Platelet Count 113 #L Mean Platelet 13.1 H Volume Immature 0.500 H Granulocytes % Neutrophils % Segmented 10 L Neutrophils % (Manual) Band Neutrophils 80 H % (Manual) Lymphocytes % Lymphocytes % 4 L (Manual) Reactive 3 H Lymphocytes % (Manual) Monocytes % Monocytes % 1 (Manual) Eosinophils % Basophils % Metamyelocytes % 1 H (manual) Myelocytes % 1 H (Manual) Nucleated Red 1 H Blood Cells % Immature 0.100 H Granulocytes # Neutrophils # Neutrophils # 5.9 (Manual) Band Neutrophils 17.3 H # Lymphocytes 0.8 (Manual) Lymphocytes # Reactive 0.6 H Lymphocytes # Monocytes # Monocytes # 0.2 L (Manual) Eosinophils # Basophils # Metamyelocytes # 0.2 H Myelocytes # 0.2 H Nucleated Red Blood Cells # Platelet Estimate DECREASED Poikilocytosis 2+ Anisocytosis 1+ Sodium Level 158 H Potassium Level 3.1 L Chloride Level 127 H Carbon Dioxide 26 Level Anion Gap 5 Blood Urea 33 H Nitrogen Creatinine 0.61 Est Glomerular Filtrat Rate mL/min Glucose Level 144 # Calcium Level 7.9 L Phosphorus Level 1.8 L Magnesium Level 2.1 Medications Medication Current Medications IV Flush (NS 3 ml) 3 ml PER PROTOCOL IV ; Start 06/10/19 at 12:00 Ondansetron HCl (Zofran Inj) 4 mg Q6H PRN IV NAUSEA/VOMITING; Start 06/10/19 at 12:00 Acetaminophen (Tylenol Tab) 650 mg Q6H PRN PO .PAIN 1-3 OR TEMP; Start 06/10/19 at 12:00 Acetaminophen/ Hydrocodone Bitart ([place] (5/325)) 1 tab Q6H PRN PO .PAIN 4-6; Start 06/10/19 at 12:00 Morphine Sulfate (morphine) 2 mg Q4H PRN IV .PAIN 7-10; Start 06/10/19 at 12:00 Docusate Sodium (Colace) 100 mg Q12H PO Last administered on 06/12/19at 00:42; Admin Dose 100 MG; Start 06/10/19 at 12:00 Vancomycin HCl (Vanco Iv Per Pharmacy) VANCOMYCIN PER PHARMACY PER PROTOCOL XX ; Start 06/10/19 at 12:30 Amiodarone HCl (Cordarone) 100 mg DAILY GTB Last administered on 06/11/19at 09:11; Admin Dose 100 MG; Start 06/11/19 at 09:00 Atorvastatin Calcium (Lipitor) 20 mg QHS GTB Last administered on 06/11/19at 20:23; Admin Dose 20 MG; Start 06/10/19 at 21:00 Levetiracetam (Keppra Liquid) 500 mg BID GTB Last administered on 06/11/19at 20:23; Admin Dose 500 MG; Start 06/10/19 at 21:00 Olanzapine (Zyprexa) 5 mg DAILY GTB Last administered on 06/11/19at 09:10; Admin Dose 5 MG; Start 06/11/19 at 09:00 Polyethylene Glycol (Miralax) 17 gm DAILY GTB Last administered on 06/11/19at 09:11; Admin Dose 17 GM; Start 06/11/19 at 09:00 Miscellaneous Information 1 ea NOTE XX ; Start 06/10/19 at 14:00 Glucose (Glutose) 15 gm Q15M PRN PO DECREASED GLUCOSE; Start 06/10/19 at 14:00 Glucose (Glutose) 22.5 gm Q15M PRN PO DECREASED GLUCOSE; Start 06/10/19 at 14:00 Dextrose (D50w Syringe) 25 ml Q15M PRN IV DECREASED GLUCOSE; Start 06/10/19 at 14:00 Dextrose (D50w Syringe) 50 ml Q15M PRN IV DECREASED GLUCOSE; Start 06/10/19 at 14:00 Glucagon (Glucagen) 1 mg Q15M PRN IM DECREASED GLUCOSE; Start 06/10/19 at 14:00 Glucose (Glutose) 15 gm Q15M PRN BUCCAL DECREASED GLUCOSE; Start 06/10/19 at 14:00 Norepinephrine 250 ml @ 1.875 mls/ hr TITRATE IV ; Start 06/10/19 at 15:00 Albuterol/ Ipratropium (Duoneb) 3 ml Q6HWA RESP THERAPY HHN Last administered on 06/12/19at 08:02; Admin Dose 3 ML; Start 06/10/19 at 20:00 Albuterol/ Ipratropium (Duoneb) 3 ml Q2H RESP THERAPY PRN HHN wheezing; Start 06/10/19 at 15:30 Budesonide (Pulmicort (Neb)) 0.5 mg BID RESP THERAPY HHN Last administered on 06/12/19at 08:02; Admin Dose 0.5 MG; Start 06/10/19 at 20:00 IV Flush (NS 10 ml) 10 ml [id number] PRN IV Line Patency; Start 06/10/19 at 16:00 Fluvoxamine Maleate (Fluvoxamine Maleate) 25 mg DAILY GTB Last administered on 06/11/19at 09:10; Admin Dose 25 MG; Start 06/11/19 at 09:00 Phenylephrine HCl 250 ml @ 75 mls/hr TITRATE IV Last administered on 06/12/19at 04:54; Admin Dose 75 MLS/HR; Start 06/10/19 at 21:00 Insulin Aspart (Novolog Insulin Pen) NOVOLOG *MODERATE* ALGORI... Q4 SC Last administered on 06/12/19at 06:01; Admin Dose 4 UNIT; Start 06/11/19 at 05:00 Aspirin (Aspirin) 81 mg DAILY PEG Last administered on 06/11/19at 09:13; Admin Dose 81 MG; Start 06/11/19 at 09:00 Heparin Sodium (Porcine) (Heparin (5000 Units/1ml)) 5,000 unit Q8 SC Last administered on 06/12/19at 06:01; Admin Dose 5,000 UNIT; Start 06/11/19 at 14:00 Miscellaneous Information (*Rx Drug Level Order Reminder*) VANCO TR AT 1000 1000 ONCE XX ; Start 06/13/19 at 10:00; Stop 06/13/19 at 10:01 Potassium Chloride/Dextrose 1,000 ml @ 80 mls/hr [id number] IV Last administered on 06/11/19at 20:52; Admin Dose 80 MLS/HR; Start 06/11/19 at 14:30 Vancomycin HCl 750 mg/Dextrose 250 ml @ 125 mls/hr Q24H IVPB ; Start 06/12/19 at 11:00 Piperacillin Sod/ Tazobactam Sod 3.375 gm/Dextrose 100 ml @ 200 mls/hr Q6 IVPB ; Start 06/12/19 at 12:00 Amiodarone HCl 900 mg/Dextrose 500 ml @ 0 mls/hr Q0M IV ; Start 06/12/19 at 09:00 Bumetanide 12 mg/ Dextrose/Water 120 ml @ 10 mls/hr Q12H ONCE IV ; Start 06/12/19 at 11:00; Stop 06/12/19 at 22:59 CHARAN LAUREANO Jun 12, 2019 09:30
[2019-06-12] MEDS ORDERED: FENTAnyl (DRIP) 1000 mcg/100mL 100 ML IV ONE (09:56)
[2019-06-12] MEDS ORDERED: IPRATROPIUM (NEB) 0.5 MG/2.5 ML AMP HHN PRN (10:00)
[2019-06-12] MEDS ORDERED: LEVALBUTEROL (NEB) 1.25 MG/0.5 ML AMP HHN PRN (10:00)
--- NOTE | 2019-06-12 10:17 | PN ---
Date/Time of Note Date/Time of Note DATE: 06/12/19 TIME: 10:08 Objective Vitals Vital Signs Date Temp Pulse Resp B/P (MAP) Pulse Ox O2 O2 Flow FiO2 Time Delivery Rate 06/12/19 154 09:00 06/12/19 26 124/62 06:15 (82) 06/12/19 100 BIPAP 06:00 06/12/19 100 05:10 06/12/19 98.9 04:00 06/10/19 15 10:25 Intake and Output 06/11/19 06/11/19 06/12/19 1515:00 23:00 07:00 IntakeIntake Total 1515.0 ml 887.5 ml 590 ml OutputOutput Total 575 ml 490 ml 670 ml BalanceBalance 940.0 ml 397.5 ml -80 ml Results Result Diagram: 06/12/19 0400 06/12/19 0400 Medications Medications Current Medications IV Flush (NS 3 ml) 3 ml PER PROTOCOL IV ; Start 06/10/19 at 12:00 Ondansetron HCl (Zofran Inj) 4 mg Q6H PRN IV NAUSEA/VOMITING; Start 06/10/19 at 12:00 Acetaminophen (Tylenol Tab) 650 mg Q6H PRN PO .PAIN 1-3 OR TEMP; Start 06/10/19 at 12:00 Acetaminophen/ Hydrocodone Bitart ([place] (5/325)) 1 tab Q6H PRN PO .PAIN 4-6; Start 06/10/19 at 12:00 Morphine Sulfate (morphine) 2 mg Q4H PRN IV .PAIN 7-10; Start 06/10/19 at 12:00 Docusate Sodium (Colace) 100 mg Q12H PO Last administered on 06/12/19at 00:42; Admin Dose 100 MG; Start 06/10/19 at 12:00 Vancomycin HCl (Vanco Iv Per Pharmacy) VANCOMYCIN PER PHARMACY PER PROTOCOL XX ; Start 06/10/19 at 12:30 Amiodarone HCl (Cordarone) 100 mg DAILY GTB Last administered on 06/11/19at 09:11; Admin Dose 100 MG; Start 06/11/19 at 09:00; Status Hold Atorvastatin Calcium (Lipitor) 20 mg QHS GTB Last administered on 06/11/19at 20:23; Admin Dose 20 MG; Start 06/10/19 at 21:00 Levetiracetam (Keppra Liquid) 500 mg BID GTB Last administered on 06/12/19 09:25; Admin Dose 500 MG; Start 06/10/19 at 21:00 Olanzapine (Zyprexa) 5 mg DAILY GTB Last administered on 06/12/19at 09:25; Admin Dose 5 MG; Start 06/11/19 at 09:00 Polyethylene Glycol (Miralax) 17 gm DAILY GTB Last administered on 06/11/19at 09:11; Admin Dose 17 GM; Start 06/11/19 at 09:00 Miscellaneous Information 1 ea NOTE XX ; Start 06/10/19 at 14:00 Glucose (Glutose) 15 gm Q15M PRN PO DECREASED GLUCOSE; Start 06/10/19 at 14:00 Glucose (Glutose) 22.5 gm Q15M PRN PO DECREASED GLUCOSE; Start 06/10/19 at 14:00 Dextrose (D50w Syringe) 25 ml Q15M PRN IV DECREASED GLUCOSE; Start 06/10/19 at 14:00 Dextrose (D50w Syringe) 50 ml Q15M PRN IV DECREASED GLUCOSE; Start 06/10/19 at 14:00 Glucagon (Glucagen) 1 mg Q15M PRN IM DECREASED GLUCOSE; Start 06/10/19 at 14:00 Glucose (Glutose) 15 gm Q15M PRN BUCCAL DECREASED GLUCOSE; Start 06/10/19 at 14:00 Norepinephrine 250 ml @ 1.875 mls/ hr TITRATE IV ; Start 06/10/19 at 15:00 Budesonide (Pulmicort (Neb)) 0.5 mg BID RESP THERAPY HHN Last administered on 06/12/19at 08:02; Admin Dose 0.5 MG; Start 06/10/19 at 20:00 IV Flush (NS 10 ml) 10 ml [id number] PRN IV Line Patency; Start 06/10/19 at 16:00 Fluvoxamine Maleate (Fluvoxamine Maleate) 25 mg DAILY GTB Last administered on 06/12/19at 09:25; Admin Dose 25 MG; Start 06/11/19 at 09:00 Phenylephrine HCl 250 ml @ 75 mls/hr TITRATE IV Last administered on 06/12/19at 04:54; Admin Dose 75 MLS/HR; Start 06/10/19 at 21:00 Insulin Aspart (Novolog Insulin Pen) NOVOLOG *MODERATE* ALGORI... Q4 SC Last administered on 06/12/19at 06:01; Admin Dose 4 UNIT; Start 06/11/19 at 05:00 Aspirin (Aspirin) 81 mg DAILY PEG Last administered on 06/12/19at 09:25; Admin Dose 81 MG; Start 06/11/19 at 09:00 Heparin Sodium (Porcine) (Heparin (5000 Units/1ml)) 5,000 unit Q8 SC Last administered on 06/12/19at 06:01; Admin Dose 5,000 UNIT; Start 06/11/19 at 14:00 Miscellaneous Information (*Rx Drug Level Order Reminder*) VANCO TR AT 1000 1000 ONCE XX ; Start 06/13/19 at 10:00; Stop 06/13/19 at 10:01 Potassium Chloride/Dextrose 1,000 ml @ 80 mls/hr [id number] IV Last administered on 06/11/19at 20:52; Admin Dose 80 MLS/HR; Start 06/11/19 at 14:30 Vancomycin HCl 750 mg/Dextrose 250 ml @ 125 mls/hr Q24H IVPB ; Start 06/12/19 at 11:00 Piperacillin Sod/ Tazobactam Sod 3.375 gm/Dextrose 100 ml @ 200 mls/hr Q6 IVPB ; Start 06/12/19 at 12:00 Bumetanide 12 mg/ Dextrose/Water 120 ml @ 10 mls/hr Q12H ONCE IV ; Start 06/12/19 at 11:00; Stop 06/12/19 at 22:59 Amiodarone HCl 200 ml @ 0 mls/hr IV INFUSION IV ; Start 06/12/19 at 10:20 Ipratropium [place] (Atrovent 0.02% (Neb)) 0.5 mg Q6HWA RESP THERAPY HHN ; Start 06/12/19 at 14:00 Ipratropium [place] (Atrovent 0.02% (Neb)) 0.5 mg Q4H RESP THERAPY PRN HHN SHORTNESS OF BREATH; Start 06/12/19 at 10:00 Levalbuterol (Xopenex Neb) 1.25 mg Q6H RESP THERAPY HHN ; Start 06/12/19 at 14:00 Levalbuterol (Xopenex Neb) 1.25 mg Q4H RESP THERAPY PRN HHN shortness of breath; Start 06/12/19 at 10:00 Fentanyl 100 ml @ 2.5 mls/hr TITRATE IV ; Start 06/12/19 at 10:00 VTE Prophylaxis Risk score (from [facility]0 risk: 10 SCD applied (from [facility]): Yes Lines/Catheters IV Catheter Type: Dial in Place: No Assessment/Plan Hospital Course Subjective Patient developed A. fib with RVR, having worsening respiratory distress, about to be intubated per pulmonology Objective Physical exam General: Patient is laying in bed with BiPAP Mentation: Patient is alert but not oriented Head: Normocephalic atraumatic Eyes: EOMI, pupils reactive to light Neck: Supple, nontender, midline Respiratory: Coarse to auscultation bilaterally Cardiovascular: Tachycardic rate, no obvious murmurs Gastrointestinal: non-tender to palpation, bowel sounds heard. Neurological: Moves all extremities spontaneously, Skin: No new skin lesions, PEG tube site present Assessment and plan Multifocal pneumonia -Broad-spectrum antibiotic to cover aspiration -Infectious disease consulted -Breathing treatments as needed -Pulmonology also on board Acute hypoxic respiratory failure -Likely secondary to above pneumonia -Pulmonology on board -Continue IV antibiotic -We will be intubated today, per pulmonology states likely severe pneumonia, does not feel this is volume overload, does not recommend diuretics at this time, will monitor closely Septic shock versus severe sepsis -Pressors as needed, titrate off pressors when able -IV antibiotic -Pancultured Atrial fibrillation with RVR -Cardiology on board -Loading with amiodarone Non-ST elevated TX -Very mild elevation -Dr. Jimenez, cardiology has been consulted -Troponin stabilized -Aspirin, statin -Cardiology doubts true thrombotic TX Electrolyte derangement with hypernatremia -IV D5W stopped due to potential pulmonary edema, nephrology ordered change in tube feed free water flushes. Chronic dysphasia -Patient has PEG tube -Monitor -Continue tube feeds Hyperglycemia with diabetes mellitus -Insulin sliding scale for now, patient became hypoglycemic with insulin drip. -Continue fluids as necessary Chronic encephalopathy -CT of the brain initially showed alarming findings however there appears to be a mixup with patient's name, patient's actual name is Trey Roberts, bright [phone]. Neurosurgeon was initially consulted for possible brain bleed and other findings however when comparing to the patient's actual chart in 2013, neurosurgeon reviewed the CT and MRI and found a similar findings with no acute emergent change. -Monitor closely, patient appears to be at baseline Hypertension -Hold hypertensive medications for now due to hypotension dyslipidemia -Continue home meds Mood disorder -Continue home meds Chronic kidney disease -Very mild, nephrology on board Failure to thrive -We will have discussion with patient's family on goals of care Disposition -Titrate off pressors when able, extubate when able -Continue ICU care -Over 40 minutes of critical care time was spent on this evaluation MALINI GOMEZ Jun 12, 2019 10:17
[2019-06-12] MEDS: FENTAnyl (DRIP) 1000 mcg/100mL 100 ML IV SCH ×2 (10:24→20:26)
[2019-06-12] MEDS ORDERED: POTASSIUM CHLORIDE 50 ML IVPB ONE (10:30)
[2019-06-12] MEDS: AMIODARONE 200 ML IV SCH ×2 (10:36→15:50)
[2019-06-12] MEDS ORDERED: BUMETANIDE 12 MG in DEXTROSE 5% 72 ML IV ONE (11:00)
[2019-06-12] MEDS: VANCOMYCIN 750 MG in DEXTROSE 5% 250 ML IVPB SCH (11:47)
[2019-06-12] MEDS: PIPERACILLIN/TAZO 3.375 GM in DEXTROSE 5% 100 ML IVPB SCH ×3 (11:48→23:20)
[2019-06-12] MEDS ORDERED: LEVALBUTEROL (NEB) 1.25 MG/0.5 ML AMP HHN SCH (14:00)
[2019-06-12] MEDS ORDERED: IPRATROPIUM (NEB) 0.5 MG/2.5 ML AMP HHN SCH (14:00)
--- NOTE | 2019-06-12 14:21 | CONS ---
Assessment/Plan Assessment/Plan Assessment/Plan (Daily) 1. acute Hypernatremia due to severe dehydration - Improving 2. acute Hyperkalemia due to FLOYD - Resolved 3. acute kidney injury on CKD III due to ATN from sepsis and Prerenal azotemia 4 . Septic shock due to multifocal PNA 5. Acute hypoxic respiratory failure due to PNA and Septic shock - Failed BIPAP- Intubated on 06/12/19 6. H/O severe dementia 7. H/O HTN 8. H/O HL 9. SNF resident 10. acute on chronic encephalopathy 11 h/o Dysphagia S/p G tube placement Plan: Na slightly better to 153- BUN/Cr normal, other electrolytes as per pulmonary ,Conitnue IVF D5w with KCL 20mEQ at 80 cc/hr currenlty on IV abx zosyn, Renally dose all abx and monitor electrolytes Ventilator Management as per pulmonary Full Code, as per Son will follow up Consultation Date/Type/Reason Admit Date/Time Jun 10, 2019 at 12:38 Initial Consult Date 06/11/19 Type of Consult NEPHROLOGY Requesting Provider: MALINI GOMEZ Date/Time of Note DATE: 06/12/19 TIME: 14:21 24 HR Interval Summary Free Text/Dictation pt gets intubated for acute hypoxemic resp failure , on ventilator now Exam/Review of Systems Exam Vitals Vital Signs Date Temp Pulse Resp B/P (MAP) Pulse Ox O2 O2 Flow FiO2 Time Delivery Rate 06/12/19 85 12 97/72 (80) 99 Mechanical 14:00 Ventilator 06/12/19 98.2 12:00 06/12/19 80 11:50 06/10/19 15 10:25 Intake and Output 06/11/19 06/11/19 06/12/19 1515:00 23:00 07:00 IntakeIntake Total 1515.0 ml 887.5 ml 590 ml OutputOutput Total 575 ml 490 ml 770 ml BalanceBalance 940.0 ml 397.5 ml -180 ml Exam General: intubated on ventilator HEENT: ET tube in place, NG tube Neck: Supple, + JVD , no LAD Respiratory: Bilateral coarse BS+, basilar wheezing Cardiovascular: S1 S2 tachycardia, no murmur Gastrointestinal: soft, NT, ND, Thin abdomen, BS+, + PEG tube in place Neurological: sedated intubated on ventilator Results Result Diagram: 06/12/19 0400 06/12/19 0400 Results 24hrs Laboratory Tests Test 06/11/19 17:56 06/11/19 17:57 06/11/19 20:17 06/12/19 00:50 Bedside Glucose 199 163 197 Sodium Level 154 H Potassium Level 3.3 L Chloride Level 127 H Carbon Dioxide 23 Level Anion Gap 4 L Blood Urea 37 #H Nitrogen Creatinine 0.52 Glucose Level 202 Calcium Level 7.8 L Phosphorus 1.9 L Level Albumin 2.5 L Test 06/12/19 01:04 06/12/19 04:00 06/12/19 05:59 06/12/19 09:06 Blood Gas Blood arterial Blood Specimen arterial Source Arterial Blood 06/12/2019 1:18: 06/12/2019 9:15 Date Drawn 28 AM :20 AM Arterial Blood 7.389 7.520 H pH (Temp corrected ) Arterial Blood 38.1 27.0 L pCO2 (Temp correct) Arterial Blood 62.6 L 54.7 *L pO2 (Temp corrected ) Arterial Blood 22.5 21.6 L HCO3 Arterial Blood -2.1 -0.1 Base Excess Arterial Blood 91.6 L 91.1 L Oxygen Saturati on James Test ACCEPTAB ACCEPTAB Arterial Blood Right Radial Right Radial Gas Puncture Site Arterial 0.1 0.1 Blood Carboxyhe moglobin Arterial Blood 0.2 0.2 Methemoglobin Blood Gas A-a 612.3 H 631.3 H O2 Differential Oxyhemoglobin 91.3 L 90.8 L Percent Blood Gas 37.0 37.0 Temperature Blood Gas 16.0 16.0 Respiration Rate Blood Gas 30 39 Actual Respiration Rat e Blood Gas MASK - BIPAP MASK - BIPAP Modality FiO2 100.0 100.0 Blood Gas 0.7 Inspiratory Time Blood Gas 15/5 10 IPAP/EPAP Ratio Blood Gas AA TM Notified Whom Blood Gas 06/12/2019 1:31: 06/12/2019 9:25 Notified Time 38 AM :17 AM White Blood 21.7 #H Count Red Blood Count 3.51 L Hemoglobin 10.9 L Hematocrit 35.7 L Mean 101.7 H Corpuscular Volume Mean 31.1 Corpuscular Hemoglobin Mean 30.5 L Corpuscular Hemoglobin Conc ent Red Cell 16.1 H Distribution Width Platelet Count 113 #L Mean Platelet 13.1 H Volume Immature 0.500 H Granulocytes % Neutrophils % Segmented 10 L Neutrophils % (Manual) Band 80 H Neutrophils % (Manual) Lymphocytes % Lymphocytes % 4 L (Manual) Reactive 3 H Lymphocytes % (Manual) Monocytes % Monocytes % 1 (Manual) Eosinophils % Basophils % Metamyelocytes 1 H % (manual) Myelocytes % 1 H (Manual) Nucleated Red 1 H Blood Cells % Immature 0.100 H Granulocytes # Neutrophils # Neutrophils # 5.9 (Manual) Band 17.3 H Neutrophils # Lymphocytes 0.8 (Manual) Lymphocytes # Reactive 0.6 H Lymphocytes # Monocytes # Monocytes # 0.2 L (Manual) Eosinophils # Basophils # Metamyelocytes 0.2 H # Myelocytes # 0.2 H Nucleated Red Blood Cells # Platelet DECREASED Estimate Poikilocytosis 2+ Anisocytosis 1+ Sodium Level 158 H Potassium Level 3.1 L Chloride Level 127 H Carbon Dioxide 26 Level Anion Gap 5 Blood Urea 33 H Nitrogen Creatinine 0.61 Est Glomerular Filtrat Rate mL/min Glucose Level 144 # Calcium Level 7.9 L Phosphorus 1.8 L Level Magnesium Level 2.1 Bedside Glucose 184 Blood Gas 10 Pressure Support Blood Gas [id number] Critical Value Read Back Test 06/12/19 09:27 06/12/19 11:00 06/12/19 12:57 Bedside Glucose 98 153 Blood Gas Blood arterial Specimen Source Arterial Blood 06/12/2019 10:49 Date Drawn :50 AM Arterial Blood 7.374 pH (Temp corrected ) Arterial Blood 36.9 pCO2 (Temp correct) Arterial Blood 133.2 H pO2 (Temp corrected ) Arterial Blood 21.0 L HCO3 Arterial Blood -3.6 L Base Excess Arterial Blood 98.4 Oxygen Saturati on James Test ACCEPTAB Arterial Blood Left Radial Gas Puncture Site Arterial 0.3 Blood Carboxyhe moglobin Arterial Blood 0.3 Methemoglobin Blood Gas A-a 542.9 H O2 Differential Oxyhemoglobin 97.8 Percent Blood Gas 37.0 Temperature Blood Gas 16.0 Respiration Rate Blood Gas 16 Actual Respiration Rat e Blood Gas VENT - AC Modality FiO2 100.0 Blood Gas Tidal 450.0 Volume Blood Gas Low 5.0 PEEP Setting Blood Gas TM Notified Whom Blood Gas 06/12/2019 10:56 Notified Time :25 AM Medications Medication Current Medications IV Flush (NS 3 ml) 3 ml PER PROTOCOL IV ; Start 06/10/19 at 12:00 Ondansetron HCl (Zofran Inj) 4 mg Q6H PRN IV NAUSEA/VOMITING; Start 06/10/19 at 12:00 Acetaminophen (Tylenol Tab) 650 mg Q6H PRN PO .PAIN 1-3 OR TEMP; Start 06/10/19 at 12:00 Acetaminophen/ Hydrocodone Bitart ([place] (5/325)) 1 tab Q6H PRN PO .PAIN 4-6; Start 06/10/19 at 12:00 Morphine Sulfate (morphine) 2 mg Q4H PRN IV .PAIN 7-10; Start 06/10/19 at 12:00 Docusate Sodium (Colace) 100 mg Q12H PO Last administered on 06/12/19at 00:42; Admin Dose 100 MG; Start 06/10/19 at 12:00 Vancomycin HCl (Vanco Iv Per Pharmacy) VANCOMYCIN PER PHARMACY PER PROTOCOL XX ; Start 06/10/19 at 12:30 Amiodarone HCl (Cordarone) 100 mg DAILY GTB Last administered on 06/11/19at 09:11; Admin Dose 100 MG; Start 06/11/19 at 09:00; Status Hold Atorvastatin Calcium (Lipitor) 20 mg QHS GTB Last administered on 06/11/19at 20:23; Admin Dose 20 MG; Start 06/10/19 at 21:00 Levetiracetam (Keppra Liquid) 500 mg BID GTB Last administered on 06/12/19at 09:25; Admin Dose 500 MG; Start 06/10/19 at 21:00 Olanzapine (Zyprexa) 5 mg DAILY GTB Last administered on 06/12/19at 09:25; Admin Dose 5 MG; Start 06/11/19 at 09:00 Polyethylene Glycol (Miralax) 17 gm DAILY GTB Last administered on 06/11/19at 09:11; Admin Dose 17 GM; Start 06/11/19 at 09:00 Miscellaneous Information 1 ea NOTE XX ; Start 06/10/19 at 14:00 Glucose (Glutose) 15 gm Q15M PRN PO DECREASED GLUCOSE; Start 06/10/19 at 14:00 Glucose (Glutose) 22.5 gm Q15M PRN PO DECREASED GLUCOSE; Start 06/10/19 at 14: 00 Dextrose (D50w Syringe) 25 ml Q15M PRN IV DECREASED GLUCOSE; Start 06/10/19 at 14:00 Dextrose (D50w Syringe) 50 ml Q15M PRN IV DECREASED GLUCOSE; Start 06/10/19 at 14:00 Glucagon (Glucagen) 1 mg Q15M PRN IM DECREASED GLUCOSE; Start 06/10/19 at 14:00 Glucose (Glutose) 15 gm Q15M PRN BUCCAL DECREASED GLUCOSE; Start 06/10/19 at 14:00 Norepinephrine 250 ml @ 1.875 mls/ hr TITRATE IV ; Start 06/10/19 at 15:00 Budesonide (Pulmicort (Neb)) 0.5 mg BID RESP THERAPY HHN Last administered on 06/12/19at 08:02; Admin Dose 0.5 MG; Start 06/10/19 at 20:00 IV Flush (NS 10 ml) 10 ml [id number] PRN IV Line Patency; Start 06/10/19 at 16:00 Fluvoxamine Maleate (Fluvoxamine Maleate) 25 mg DAILY GTB Last administered on 06/12/19at 09:25; Admin Dose 25 MG; Start 06/11/19 at 09:00 Phenylephrine HCl 250 ml @ 75 mls/hr TITRATE IV Last administered on 06/12/19at 13:52; Admin Dose 150 MLS/HR; Start 06/10/19 at 21:00; Stop 06/12/19 at 15:00 Insulin Aspart (Novolog Insulin Pen) NOVOLOG *MODERATE* ALGORI... Q4 SC Last administered on 06/12/19at 13:11; Admin Dose 2 UNIT; Start 06/11/19 at 05:00 Aspirin (Aspirin) 81 mg DAILY PEG Last administered on 06/12/19at 09:25; Admin Dose 81 MG; Start 06/11/19 at 09:00 Heparin Sodium (Porcine) (Heparin (5000 Units/1ml)) 5,000 unit Q8 SC Last administered on 06/12/19at 06:01; Admin Dose 5,000 UNIT; Start 06/11/19 at 14:00 Miscellaneous Information (*Rx Drug Level Order Reminder*) VANCO TR AT 1000 1000 ONCE XX ; Start 06/13/19 at 10:00; Stop 06/13/19 at 10:01 Potassium Chloride/Dextrose 1,000 ml @ 80 mls/hr [id number] IV Last administered on 06/11/19 20:52; Admin Dose 80 MLS/HR; Start 06/11/19 at 14:30 Vancomycin HCl 750 mg/Dextrose 250 ml @ 125 mls/hr Q24H IVPB Last administered on 06/12/19 11:47; Admin Dose 125 MLS/HR; Start 06/12/19 at 11:00 Piperacillin Sod/ Tazobactam Sod 3.375 gm/Dextrose 100 ml @ 200 mls/hr Q6 IVPB Last administered on 06/12/19 11:48; Admin Dose 200 MLS/HR; Start 06/12/19 at 12:00 Amiodarone HCl 200 ml @ 0 mls/hr IV INFUSION IV Last administered on 06/12/19 10:36; Admin Dose 33.3 MLS/HR; Start 06/12/19 at 10:20 Ipratropium [place] (Atrovent 0.02% (Neb)) 0.5 mg Q6HWA RESP THERAPY HHN Last administered on 06/12/19 13:56; Admin Dose 0.5 MG; Start 06/12/19 at 14:00 Ipratropium [place] (Atrovent 0.02% (Neb)) 0.5 mg Q4H RESP THERAPY PRN HHN SHORTNESS OF BREATH; Start 06/12/19 at 10:00 Levalbuterol (Xopenex Neb) 1.25 mg Q6H RESP THERAPY HHN Last administered on 06/12/19 13:56; Admin Dose 1.25 MG; Start 06/12/19 at 14:00 Levalbuterol (Xopenex Neb) 1.25 mg Q4H RESP THERAPY PRN HHN shortness of breath; Start 06/12/19 at 10:00 Fentanyl 100 ml @ 2.5 mls/hr TITRATE IV Last administered on 06/12/19 10:24; Admin Dose 2.5 MLS/HR; Start 06/12/19 at 10:00 Phenylephrine HCl 80 mg/Dextrose 250 ml @ 18.75 mls/ hr TITRATE IV ; Start 06/12/19 at 14:00 GERMAN FELIX MD Jun 12, 2019 14:21
[2019-06-12] MEDS: D5W + KCL 20 MEQ 1,000 ML IV SCH (14:36)
--- NOTE | 2019-06-12 14:48 | PN ---
DATE: 06/12/2019 SUBJECTIVE: Patient was intubated this am She is on Philippe-Synephrine and amiodarone drip, status post rapid atrial fibrillation. Looks comfortable. Also sedated with WBC today 21.7, H and H 10.9 and 35.7, platelets 113, bands, 80, BUN 33, creatinine 0.61. MICROBIOLOGY: Blood cultures remain negative. MRSA swab negative. Urine culture growing gram-negative rods. DIAGNOSTICS: Chest x-ray revealed left greater than right alveolar opacities. INDWELLINGS: Endotracheal tube, PEG, Dial and PICC line placed on 06/10/2019. ANTIMICROBIALS: The patient remains on: 1. Vancomycin. 2. Zosyn. PHYSICAL EXAMINATION: GENERAL: Chronically ill-appearing, woman who is intubated, sedated, in no distress. HEENT: Head atraumatic, normocephalic. Sclerae anicteric. Buccal mucosa dry. NECK: Supple. CHEST: Rise symmetrical. Breath sounds diminished to bases. HEART: S1, S2. ABDOMEN: Irregular. Soft, bowel tones diminished. EXTREMITIES: Cyanotic, mottled with left lower extremity edema and cold to touch, secondary to IV infiltration. ASSESSMENT: 1. Severe sepsis with shock. 2. Acute hypoxemic respiratory failure, status post intubated this morning. 3. Urinary tract infection. 4. Healthcare-associated pneumonia. 5. History of brain mass. 6. Diabetes. 7. Non-ST elevation myocardial infarction. 8. Atrial fibrillation status post rapid ventricular response. PLAN: The patient is doing poorly, covered with broad-spectrum antibiotics. Urine culture and sputum culture pending. Dictated By: JACKIE CORTÉS STEAMTABLE ATTENDANT RAILROAD for LARISSA FARAH MD NI/JACQUELINE Conf#: [id number] DID#: [id number] CC: MALINI GOMEZ MD;*EndCC* MTDD
--- NOTE | 2019-06-12 15:38 | RADRPT ---
Echocardiogram Report Patient Name: ESSENCE MCCONNELLPatient ID: [id number] : 1935 (84y 2m)Study Date: 06/11/2019 7:41:22 AM Gender: FAccession #: [id number] Tech: Nai Allen JASBIR Location: 107 Ref.Physician: MALINI GOMEZ Height(Cm): BSA: Weight(Kg): Quality: AdequateOrder Physician: MALINI GOMEZ Account #: Procedures: Echocardiographic Report: Transthoracic echocardiogram with complete 2D, M-Mode, and doppler examination. Indications: Shortness of breath. Measurements: 2D/M Mode Doppler Measurement Value Normal Range Measurement Value Normal Range LVIDd 2D 3.4 [ 3.8 - 5.2 ] cm AV Peak Cali 1.6 [ 100.0 - 170.0 ] cm/sec LVIDs 2D 1.6 [ 2.2 - 3.5 ] cm AV Peak PG 10.0 [ 2.0 - 9.0 ] mmHg LVPWd 2D 1.1 [ 0.6 - 0.9 ] cm AI Peak PG 60.0 mmHg IVSd 2D 1.0 [ 0.6 - 0.9 ] cm AI Peak Cali 3.9 cm/sec AoR Diam 2D 2.9 [ 2.3 - 3.1 ] cm AI PHT 563.0 msec EDV 2D 46.8 [ 46.0 - 106.0 ] ml LVOT Peak Cali 1.4 [ 70.0 - 110.0 ] cm/sec ESV 2D 7.2 [ 14.0 - 42.0 ] ml LVOT Peak PG 7.0 [ 2.0 - 6.0 ] mmHg EF 2D 84.7 [ 54.0 - 74.0 ] percent MV E Peak Cali 0.7 [ 60.0 - 130.0 ] cm/sec LA Dimen 2D 2.1 [ 2.7 - 3.8 ] cm MV A Peak Cali 1.0 [ 100.0 - 120.0 ] cm/sec MV E/A 0.6 [ 0.8 - 1.5 ] ratio MV Decel Time 92 [ 104 - 258 ] msec Lat E` Cali 0.1 [ 10.0 - 15.0 ] cm/sec Lateral E/E` 12.7 [ 1.0 - 2.0 ] ratio Med E` Cali 0.1 cm/sec MV E/A 0.6 [ 0.8 - 1.5 ] ratio TR Peak Cali 1.9 [ 100.0 - 280.0 ] cm/sec TR Peak PG 14.0 mmHg RVSP 17.0 [ 10.0 - 36.0 ] mmHg RA Pressure 3.0 mmHg Findings: Left Ventricle: Normal left ventricular systolic function. Normal left ventricular cavity size. Mild concentric left ventricular hypertrophy. Ejection fraction is visually estimated at 65 %. Tissue Doppler/Mitral Doppler indices are consistent with impaired relaxation (Stage I diastolic dysfunction). Right Ventricle: Normal right ventricular size. Normal right ventricular systolic function. Left Atrium: The left atrium is normal in size. Right Atrium: The right atrium is normal in size. Mitral Valve: Normal appearance of the mitral valve. Mild mitral annular calcification. Trace mitral regurgitation. Aortic Valve: No hemodynamically significant aortic stenosis by doppler. Aortic cusps appear mildly calcified. Trace aortic valve regurgitation. Tricuspid Valve: Normal appearance and function of the tricuspid valve with trace physiologic regurgitation. Normal right ventricular systolic pressure. The estimated Peak RVSP is 17 mmHg. Pulmonic Valve: Pulmonic valve not well visualized. Pericardium: Normal pericardium with no significant pericardial effusion. Aorta: Normal aortic root. IVC: Normal IVC with respiratory collapse, however patient on bipap. Conclusions: Technically difficult study. Mild concentric left ventricular hypertrophy with normal systolic function. Impaired relaxation. Trace valvular regurgitations seen. Normal estimated pulmonary pressures. Electronically Signed By: Kenia Jimenez 2019-06-12 15:37:41 PDT
--- NOTE | 2019-06-12 15:38 | CONS ---
Assessment/Plan Assessment/Plan Hospital Course (Demo Recall) 84 year old with dementia and multiple medical problems presenting with pneumonia, septic shock, respiratory failure requiring pressors, and possible brain mass, with elevated troponins. Course complicated by acute respiratory failure and development of rapid atrial fib, now in NSR after amiodarone drip. Impression: Parox atrial fib Septic shock Acute resp failure Elevated troponin due to "type 2 NE" Recommendations: Continue amiodarone for 24 hours Supportive care, ventilator, antibiotics, etc Guarded prognosis Consultation Date/Type/Reason Admit Date/Time Jun 10, 2019 at 12:38 Initial Consult Date 06/11/19 Type of Consult Cardiology Requesting Provider: MALINI GOMEZ Date/Time of Note DATE: 06/12/19 TIME: 15:30 24 HR Interval Summary Free Text/Dictation Patient developed rapid atrial fibrillation this morning, amiodarone drip started, now in NSR. Patient also intubated this morning. Subjective hx not possible: pt non-verbal Exam/Review of Systems Vital Signs Vitals Vital Signs Date Temp Pulse Resp B/P (MAP) Pulse Ox O2 O2 Flow FiO2 Time Delivery Rate 06/12/19 85 12 97/72 (80) 99 Mechanical 14:00 Ventilator 06/12/19 98.2 12:00 06/12/19 80 11:50 06/10/19 15 10:25 Intake and Output 06/11/19 06/11/19 06/12/19 1515:00 23:00 07:00 IntakeIntake Total 1515.0 ml 887.5 ml 590 ml OutputOutput Total 575 ml 490 ml 770 ml BalanceBalance 940.0 ml 397.5 ml -180 ml Exam Constitutional: non-verbal Head: normocephalic ENMT: intubated Neck: No jvd, No bruits Respiratory: diminished breath sounds Cardiovascular: regular rate and rhythm; No murmurs/extra sounds Gastrointestinal: soft, nl liver, spleen, non-tender Musculoskeletal: nl extremities to inspection Extremities: No edema Neurological: unresponsive Skin: nl turgor Labs Result Diagram: 06/12/19 0400 06/12/19 0400 Results 24hrs Laboratory Tests Test 06/11/19 17:56 06/11/19 17:57 06/11/19 20:17 06/12/19 00:50 Bedside Glucose 199 163 197 Sodium Level 154 H Potassium Level 3.3 L Chloride Level 127 H Carbon Dioxide 23 Level Anion Gap 4 L Blood Urea 37 #H Nitrogen Creatinine 0.52 Glucose Level 202 Calcium Level 7.8 L Phosphorus 1.9 L Level Albumin 2.5 L Test 06/12/19 01:04 06/12/19 04:00 06/12/19 05:59 06/12/19 09:06 Blood Gas Blood arterial Blood Specimen arterial Source Arterial Blood 06/12/2019 1:18: 06/12/2019 9:15 Date Drawn 28 AM :20 AM Arterial Blood 7.389 7.520 H pH (Temp corrected ) Arterial Blood 38.1 27.0 L pCO2 (Temp correct) Arterial Blood 62.6 L 54.7 *L pO2 (Temp corrected ) Arterial Blood 22.5 21.6 L HCO3 Arterial Blood -2.1 -0.1 Base Excess Arterial Blood 91.6 L 91.1 L Oxygen Saturati on James Test ACCEPTAB ACCEPTAB Arterial Blood Right Radial Right Radial Gas Puncture Site Arterial 0.1 0.1 Blood Carboxyhe moglobin Arterial Blood 0.2 0.2 Methemoglobin Blood Gas A-a 612.3 H 631.3 H O2 Differential Oxyhemoglobin 91.3 L 90.8 L Percent Blood Gas 37.0 37.0 Temperature Blood Gas 16.0 16.0 Respiration Rate Blood Gas 30 39 Actual Respiration Rat e Blood Gas MASK - BIPAP MASK - BIPAP Modality FiO2 100.0 100.0 Blood Gas 0.7 Inspiratory Time Blood Gas 15/5 10 IPAP/EPAP Ratio Blood Gas AA TM Notified Whom Blood Gas 06/12/2019 1:31: 06/12/2019 9:25 Notified Time 38 AM :17 AM White Blood 21.7 #H Count Red Blood Count 3.51 L Hemoglobin 10.9 L Hematocrit 35.7 L Mean 101.7 H Corpuscular Volume Mean 31.1 Corpuscular Hemoglobin Mean 30.5 L Corpuscular Hemoglobin Conc ent Red Cell 16.1 H Distribution Width Platelet Count 113 #L Mean Platelet 13.1 H Volume Immature 0.500 H Granulocytes % Neutrophils % Segmented 10 L Neutrophils % (Manual) Band 80 H Neutrophils % (Manual) Lymphocytes % Lymphocytes % 4 L (Manual) Reactive 3 H Lymphocytes % (Manual) Monocytes % Monocytes % 1 (Manual) Eosinophils % Basophils % Metamyelocytes 1 H % (manual) Myelocytes % 1 H (Manual) Nucleated Red 1 H Blood Cells % Immature 0.100 H Granulocytes # Neutrophils # Neutrophils # 5.9 (Manual) Band 17.3 H Neutrophils # Lymphocytes 0.8 (Manual) Lymphocytes # Reactive 0.6 H Lymphocytes # Monocytes # Monocytes # 0.2 L (Manual) Eosinophils # Basophils # Metamyelocytes 0.2 H # Myelocytes # 0.2 H Nucleated Red Blood Cells # Platelet DECREASED Estimate Poikilocytosis 2+ Anisocytosis 1+ Sodium Level 158 H Potassium Level 3.1 L Chloride Level 127 H Carbon Dioxide 26 Level Anion Gap 5 Blood Urea 33 H Nitrogen Creatinine 0.61 Est Glomerular Filtrat Rate mL/min Glucose Level 144 # Calcium Level 7.9 L Phosphorus 1.8 L Level Magnesium Level 2.1 Bedside Glucose 184 Blood Gas 10 Pressure Support Blood Gas [id number] ADOLPH Critical Value Read Back Test 06/12/19 09:27 06/12/19 11:00 06/12/19 12:57 Bedside Glucose 98 153 Blood Gas Blood arterial Specimen Source Arterial Blood 06/12/2019 10:49 Date Drawn :50 AM Arterial Blood 7.374 pH (Temp corrected ) Arterial Blood 36.9 pCO2 (Temp correct) Arterial Blood 133.2 H pO2 (Temp corrected ) Arterial Blood 21.0 L HCO3 Arterial Blood -3.6 L Base Excess Arterial Blood 98.4 Oxygen Saturati on James Test ACCEPTAB Arterial Blood Left Radial Gas Puncture Site Arterial 0.3 Blood Carboxyhe moglobin Arterial Blood 0.3 Methemoglobin Blood Gas A-a 542.9 H O2 Differential Oxyhemoglobin 97.8 Percent Blood Gas 37.0 Temperature Blood Gas 16.0 Respiration Rate Blood Gas 16 Actual Respiration Rat e Blood Gas VENT - AC Modality FiO2 100.0 Blood Gas Tidal 450.0 Volume Blood Gas Low 5.0 PEEP Setting Blood Gas TM Notified Whom Blood Gas 06/12/2019 10:56 Notified Time :25 AM Medications Medications Current Medications IV Flush (NS 3 ml) 3 ml PER PROTOCOL IV ; Start 06/10/19 at 12:00 Ondansetron HCl (Zofran Inj) 4 mg Q6H PRN IV NAUSEA/VOMITING; Start 06/10/19 at 12:00 Acetaminophen (Tylenol Tab) 650 mg Q6H PRN PO .PAIN 1-3 OR TEMP; Start 06/10/19 at 12:00 Acetaminophen/ Hydrocodone Bitart ([place] (5/325)) 1 tab Q6H PRN PO .PAIN 4-6; Start 06/10/19 at 12:00 Morphine Sulfate (morphine) 2 mg Q4H PRN IV .PAIN 7-10; Start 06/10/19 at 12:00 Docusate Sodium (Colace) 100 mg Q12H PO Last administered on 06/12/19at 00:42; Admin Dose 100 MG; Start 06/10/19 at 12:00 Vancomycin HCl (Vanco Iv Per Pharmacy) VANCOMYCIN PER PHARMACY PER PROTOCOL XX ; Start 06/10/19 at 12:30 Amiodarone HCl (Cordarone) 100 mg DAILY GTB Last administered on 06/11/19at 09:11; Admin Dose 100 MG; Start 06/11/19 at 09:00; Status Hold Atorvastatin Calcium (Lipitor) 20 mg QHS GTB Last administered on 06/11/19at 20:23; Admin Dose 20 MG; Start 06/10/19 at 21:00 Levetiracetam (Keppra Liquid) 500 mg BID GTB Last administered on 06/12/19at 09:25; Admin Dose 500 MG; Start 06/10/19 at 21:00 Olanzapine (Zyprexa) 5 mg DAILY GTB Last administered on 06/12/19at 09:25; Admin Dose 5 MG; Start 06/11/19 at 09:00 Polyethylene Glycol (Miralax) 17 gm DAILY GTB Last administered on 06/11/19at 09:11; Admin Dose 17 GM; Start 06/11/19 at 09:00 Miscellaneous Information 1 ea NOTE XX ; Start 06/10/19 at 14:00 Glucose (Glutose) 15 gm Q15M PRN PO DECREASED GLUCOSE; Start 06/10/19 at 14:00 Glucose (Glutose) 22.5 gm Q15M PRN PO DECREASED GLUCOSE; Start 06/10/19 at 14:00 Dextrose (D50w Syringe) 25 ml Q15M PRN IV DECREASED GLUCOSE; Start 06/10/19 at 14:00 Dextrose (D50w Syringe) 50 ml Q15M PRN IV DECREASED GLUCOSE; Start 06/10/19 at 14:00 Glucagon (Glucagen) 1 mg Q15M PRN IM DECREASED GLUCOSE; Start 06/10/19 at 14:00 Glucose (Glutose) 15 gm Q15M PRN BUCCAL DECREASED GLUCOSE; Start 06/10/19 at 14:00 Norepinephrine 250 ml @ 1.875 mls/ hr TITRATE IV ; Start 06/10/19 at 15:00 Budesonide (Pulmicort (Neb)) 0.5 mg BID RESP THERAPY HHN Last administered on 06/12/19at 08:02; Admin Dose 0.5 MG; Start 06/10/19 at 20:00 IV Flush (NS 10 ml) 10 ml [id number] PRN IV Line Patency; Start 06/10/19 at 16:00 Fluvoxamine Maleate (Fluvoxamine Maleate) 25 mg DAILY GTB Last administered on 06/12/19at 09:25; Admin Dose 25 MG; Start 06/11/19 at 09:00 Insulin Aspart (Novolog Insulin Pen) NOVOLOG *MODERATE* ALGORI... Q4 SC Last administered on 06/12/19 13:11; Admin Dose 2 UNIT; Start 06/11/19 at 05:00 Aspirin (Aspirin) 81 mg DAILY PEG Last administered on 06/12/19at 09:25; Admin Dose 81 MG; Start 06/11/19 at 09:00 Heparin Sodium (Porcine) (Heparin (5000 Units/1ml)) 5,000 unit Q8 SC Last administered on 06/12/19at 14:21; Admin Dose 5,000 UNIT; Start 06/11/19 at 14:00 Miscellaneous Information (*Rx Drug Level Order Reminder*) VANCO TR AT 1000 1000 ONCE XX ; Start 06/13/19 at 10:00; Stop 06/13/19 at 10:01 Potassium Chloride/Dextrose 1,000 ml @ 80 mls/hr [id number] IV Last administered on 06/11/19at 20:52; Admin Dose 80 MLS/HR; Start 06/11/19 at 14:30 Vancomycin HCl 750 mg/Dextrose 250 ml @ 125 mls/hr Q24H IVPB Last administered on 06/12/19at 11:47; Admin Dose 125 MLS/HR; Start 06/12/19 at 11:00 Piperacillin Sod/ Tazobactam Sod 3.375 gm/Dextrose 100 ml @ 200 mls/hr Q6 IVPB Last administered on 06/12/19 11:48; Admin Dose 200 MLS/HR; Start 06/12/19 at 12:00 Amiodarone HCl 200 ml @ 0 mls/hr IV INFUSION IV Last administered on 06/12/19 10:36; Admin Dose 33.3 MLS/HR; Start 06/12/19 at 10:20 Ipratropium [place] (Atrovent 0.02% (Neb)) 0.5 mg Q6HWA RESP THERAPY HHN Last administered on 06/12/19 13:56; Admin Dose 0.5 MG; Start 06/12/19 at 14:00 Ipratropium [place] (Atrovent 0.02% (Neb)) 0.5 mg Q4H RESP THERAPY PRN HHN SHORTNESS OF BREATH; Start 06/12/19 at 10:00 Levalbuterol (Xopenex Neb) 1.25 mg Q6H RESP THERAPY HHN Last administered on 06/12/19 13:56; Admin Dose 1.25 MG; Start 06/12/19 at 14:00 Levalbuterol (Xopenex Neb) 1.25 mg Q4H RESP THERAPY PRN HHN shortness of breath; Start 06/12/19 at 10:00 Fentanyl 100 ml @ 2.5 mls/hr TITRATE IV Last administered on 06/12/19 10:24; Admin Dose 2.5 MLS/HR; Start 06/12/19 at 10:00 Phenylephrine HCl 80 mg/Dextrose 250 ml @ 18.75 mls/ hr TITRATE IV ; Start 06/12/19 at 14:00 MEME OCHOA Jun 12, 2019 15:38
[2019-06-12] MEDS: PHENYLephrine 80 MG in DEXTROSE 5% 242 ML IV SCH ×2 (15:49→22:42)
--- NOTE | 2019-06-12 16:59 | CONS ---
Assessment/Plan Assessment/Plan Assessment/Plan (Daily) Acute respiratory failure Left lower lobe and multifocal infiltrates Treated aggressively with IV antibiotic coverage and patient is intubated Shock probably from pneumonia Treatment as above Chronic dementia Moderate to severe by history obtained from nursing staff Other chronic medical problems per history of present illness If patient has been deteriorating failure to thrive, with a baseline history of dementia and mood disorder now intubated poor prognosis for extubation. However pulmonary medicine board per medical records Dr. Lainez his primary care physician and has taken the lead in patient's care. Family dynamics appear to be unfortunate after speaking to Dr. Lainez and primary care nurse and patient is a full code. I will ask [employer] work service to set up a conference by phone and or Skype. However will wait at least the next 24 hours to see how patient response to current aggressive treatment. Consultation Date/Type/Reason Admit Date/Time Jun 10, 2019 at 12:38 Date/Time of Note DATE: 06/12/19 TIME: 16:57 Hx of Present Illness Reviewed patient's medical records. She required intubation this morning, currently on 70% FiO2, sedated, on [address] Lainez patient has multifocal pneumonia is left greater than right, optic shock non-ST OK and a baseline history of encephalopathy. Other chronic medical problems include atrial fibrillation dyslipidemia chronic kidney disease and according medical records failure to thrive no family members at patient's bedside at this time. I am seeing patient from a palliative care standpoint and is a understanding of family dynamics at this time and goals of care have been addressed with family members. One sibling is in agreement with discussing goals of care rest of the family members are not however those family members are out of state. Prognosis guarded since patient was intubated on high flow FiO2 and 1 pressor. Cannot get a results review of systems no family members and patient is nonverbal intubated Past Medical History Medical History: high cholesterol, hypertension, other (Dementia, Atrial fibrillation ) Home Meds Reported Medications Pantoprazole* (Protonix*) 40 Mg Tablet., 40 MG PO DAILY, TAB 09/03/14 Donepezil* (Aricept*) 5 Mg Tablet, 5 MG PO DAILY, TAB 09/03/14 Atorvastatin Calcium* (Atorvastatin Calcium*) 20 Mg Tablet, 20 MG PO HS, TAB 09/03/14 Saxagliptin Hcl/Metformin Hcl (KOMBIGLYZE XR 5-500 MG TABLET) 1 Each Tbmp.24hr, 1 EACH PO DAILY 09/03/14 Medications Current Medications IV Flush (NS 3 ml) 3 ml PER PROTOCOL IV ; Start 06/10/19 at 12:00 Ondansetron HCl (Zofran Inj) 4 mg Q6H PRN IV NAUSEA/VOMITING; Start 06/10/19 at 12:00 Acetaminophen (Tylenol Tab) 650 mg Q6H PRN PO .PAIN 1-3 OR TEMP; Start 06/10/19 at 12:00 Acetaminophen/ Hydrocodone Bitart ([place] (5/325)) 1 tab Q6H PRN PO .PAIN 4-6; Start 06/10/19 at 12:00 Morphine Sulfate (morphine) 2 mg Q4H PRN IV .PAIN 7-10; Start 06/10/19 at 12:00 Docusate Sodium (Colace) 100 mg Q12H PO Last administered on 06/12/19at 00:42; Admin Dose 100 MG; Start 06/10/19 at 12:00 Vancomycin HCl (Vanco Iv Per Pharmacy) VANCOMYCIN PER PHARMACY PER PROTOCOL XX ; Start 06/10/19 at 12:30 Amiodarone HCl (Cordarone) 100 mg DAILY GTB Last administered on 06/11/19at 09:11; Admin Dose 100 MG; Start 06/11/19 at 09:00; Status Hold Atorvastatin Calcium (Lipitor) 20 mg QHS GTB Last administered on 06/11/19at 20:23; Admin Dose 20 MG; Start 06/10/19 at 21:00 Levetiracetam (Keppra Liquid) 500 mg BID GTB Last administered on 06/12/19at 09:25; Admin Dose 500 MG; Start 06/10/19 at 21:00 Olanzapine (Zyprexa) 5 mg DAILY GTB Last administered on 06/12/19at 09:25; Admin Dose 5 MG; Start 06/11/19 at 09:00 Polyethylene Glycol (Miralax) 17 gm DAILY GTB Last administered on 06/11/19at 09:11; Admin Dose 17 GM; Start 06/11/19 at 09:00 Miscellaneous Information 1 ea NOTE XX ; Start 06/10/19 at 14:00 Glucose (Glutose) 15 gm Q15M PRN PO DECREASED GLUCOSE; Start 06/10/19 at 14:00 Glucose (Glutose) 22.5 gm Q15M PRN PO DECREASED GLUCOSE; Start 06/10/19 at 14:00 Dextrose (D50w Syringe) 25 ml Q15M PRN IV DECREASED GLUCOSE; Start 06/10/19 at 14:00 Dextrose (D50w Syringe) 50 ml Q15M PRN IV DECREASED GLUCOSE; Start 06/10/19 at 14:00 Glucagon (Glucagen) 1 mg Q15M PRN IM DECREASED GLUCOSE; Start 06/10/19 at 14:00 Glucose (Glutose) 15 gm Q15M PRN BUCCAL DECREASED GLUCOSE; Start 06/10/19 at 14:00 Norepinephrine 250 ml @ 1.875 mls/ hr TITRATE IV ; Start 06/10/19 at 15:00 Budesonide (Pulmicort (Neb)) 0.5 mg BID RESP THERAPY HHN Last administered on 06/12/19at 08:02; Admin Dose 0.5 MG; Start 06/10/19 at 20:00 IV Flush (NS 10 ml) 10 ml [id number] PRN IV Line Patency; Start 06/10/19 at 16:00 Fluvoxamine Maleate (Fluvoxamine Maleate) 25 mg DAILY GTB Last administered on 06/12/19at 09:25; Admin Dose 25 MG; Start 06/11/19 at 09:00 Insulin Aspart (Novolog Insulin Pen) NOVOLOG *MODERATE* ALGORI... Q4 SC Last administered on 06/12/19at 16:38; Admin Dose 6 UNIT; Start 06/11/19 at 05:00 Aspirin (Aspirin) 81 mg DAILY PEG Last administered on 06/12/19at 09:25; Admin Dose 81 MG; Start 06/11/19 at 09:00 Heparin Sodium (Porcine) (Heparin (5000 Units/1ml)) 5,000 unit Q8 SC Last administered on 06/12/19at 14:21; Admin Dose 5,000 UNIT; Start 06/11/19 at 14:00 Miscellaneous Information (*Rx Drug Level Order Reminder*) VANCO TR AT 1000 1000 ONCE XX ; Start 06/13/19 at 10:00; Stop 06/13/19 at 10:01 Potassium Chloride/Dextrose 1,000 ml @ 80 mls/hr [id number] IV Last administered on 06/11/19 20:52; Admin Dose 80 MLS/HR; Start 06/11/19 at 14:30 Vancomycin HCl 750 mg/Dextrose 250 ml @ 125 mls/hr Q24H IVPB Last administered on 06/12/19 11:47; Admin Dose 125 MLS/HR; Start 06/12/19 at 11:00 Piperacillin Sod/ Tazobactam Sod 3.375 gm/Dextrose 100 ml @ 200 mls/hr Q6 IVPB Last administered on 06/12/19 11:48; Admin Dose 200 MLS/HR; Start 06/12/19 at 12:00 Amiodarone HCl 200 ml @ 0 mls/hr IV INFUSION IV Last administered on 06/12/19 15:50; Admin Dose 33.3 MLS/HR; Start 06/12/19 at 10:20 Ipratropium [place] (Atrovent 0.02% (Neb)) 0.5 mg Q6HWA RESP THERAPY HHN Last administered on 06/12/19 13:56; Admin Dose 0.5 MG; Start 06/12/19 at 14:00 Ipratropium [place] (Atrovent 0.02% (Neb)) 0.5 mg Q4H RESP THERAPY PRN HHN SHORTNESS OF BREATH; Start 06/12/19 at 10:00 Levalbuterol (Xopenex Neb) 1.25 mg Q6H RESP THERAPY HHN Last administered on 06/12/19 13:56; Admin Dose 1.25 MG; Start 06/12/19 at 14:00 Levalbuterol (Xopenex Neb) 1.25 mg Q4H RESP THERAPY PRN HHN shortness of breath; Start 06/12/19 at 10:00 Fentanyl 100 ml @ 2.5 mls/hr TITRATE IV Last administered on 06/12/19 10:24; Admin Dose 2.5 MLS/HR; Start 06/12/19 at 10:00 Phenylephrine HCl 80 mg/Dextrose 250 ml @ 18.75 mls/ hr TITRATE IV Last administered on 06/12/19 15:49; Admin Dose 37.5 MLS/HR; Start 06/12/19 at 14:00 Allergies: Coded Allergies: No Known Allergy (Verified , 09/10/14) Past Surgical History Past Surgical Hx: other (not available ) Family History Significant Family History: other (Unknown) Social History Alcohol Use: none Smoking Status: Unknown if ever smoked Drug Use: none Exam/Review of Systems Exam Vitals Vital Signs Date Temp Pulse Resp B/P (MAP) Pulse Ox O2 O2 Flow FiO2 Time Delivery Rate 06/12/19 99.0 79 17 94/55 (68) 100 Mechanical 16:00 Ventilator 06/12/19 70 13:54 06/10/19 15 10:25 Intake and Output 06/11/19 06/11/19 06/12/19 1515:00 23:00 07:00 IntakeIntake Total 1515.0 ml 887.5 ml 590 ml OutputOutput Total 575 ml 490 ml 770 ml BalanceBalance 940.0 ml 397.5 ml -180 ml Constitutional: non-verbal, frail Head: normocephalic, atraumatic; No lacerations, No hematomas, No other Eyes: nl conjunctiva, EOMI, nl lids, nl sclera, PERRL; No icteric, No fundi, disc, No other Respiratory: crackles/rales, diminished breath sounds Cardiovascular: nl pulses, other (Irregularly irregular) Gastrointestinal: soft, nl liver, spleen, non-tender Neurological: unresponsive, other (Intubated sedated) Results Result Diagram: 06/12/19 0400 06/12/19 0400 Results 24hrs Laboratory Tests Test 06/11/19 17:56 06/11/19 17:57 06/11/19 20:17 06/12/19 00:50 Bedside Glucose 199 163 197 Sodium Level 154 H Potassium Level 3.3 L Chloride Level 127 H Carbon Dioxide 23 Level Anion Gap 4 L Blood Urea 37 #H Nitrogen Creatinine 0.52 Glucose Level 202 Calcium Level 7.8 L Phosphorus 1.9 L Level Albumin 2.5 L Test 06/12/19 01:04 06/12/19 04:00 06/12/19 05:59 06/12/19 09:06 Blood Gas Blood arterial Blood Specimen arterial Source Arterial Blood 06/12/2019 1:18: 06/12/2019 9:15 Date Drawn 28 AM :20 AM Arterial Blood 7.389 7.520 H pH (Temp corrected ) Arterial Blood 38.1 27.0 L pCO2 (Temp correct) Arterial Blood 62.6 L 54.7 *L pO2 (Temp corrected ) Arterial Blood 22.5 21.6 L HCO3 Arterial Blood -2.1 -0.1 Base Excess Arterial Blood 91.6 L 91.1 L Oxygen Saturati on James Test ACCEPTAB ACCEPTAB Arterial Blood Right Radial Right Radial Gas Puncture Site Arterial 0.1 0.1 Blood Carboxyhe moglobin Arterial Blood 0.2 0.2 Methemoglobin Blood Gas A-a 612.3 H 631.3 H O2 Differential Oxyhemoglobin 91.3 L 90.8 L Percent Blood Gas 37.0 37.0 Temperature Blood Gas 16.0 16.0 Respiration Rate Blood Gas 30 39 Actual Respiration Rat e Blood Gas MASK - BIPAP MASK - BIPAP Modality FiO2 100.0 100.0 Blood Gas 0.7 Inspiratory Time Blood Gas 15/5 10 IPAP/EPAP Ratio Blood Gas AA TM Notified Whom Blood Gas 06/12/2019 1:31: 06/12/2019 9:25 Notified Time 38 AM :17 AM White Blood 21.7 #H Count Red Blood Count 3.51 L Hemoglobin 10.9 L Hematocrit 35.7 L Mean 101.7 H Corpuscular Volume Mean 31.1 Corpuscular Hemoglobin Mean 30.5 L Corpuscular Hemoglobin Conc ent Red Cell 16.1 H Distribution Width Platelet Count 113 #L Mean Platelet 13.1 H Volume Immature 0.500 H Granulocytes % Neutrophils % Segmented 10 L Neutrophils % (Manual) Band 80 H Neutrophils % (Manual) Lymphocytes % Lymphocytes % 4 L (Manual) Reactive 3 H Lymphocytes % (Manual) Monocytes % Monocytes % 1 (Manual) Eosinophils % Basophils % Metamyelocytes 1 H % (manual) Myelocytes % 1 H (Manual) Nucleated Red 1 H Blood Cells % Immature 0.100 H Granulocytes # Neutrophils # Neutrophils # 5.9 (Manual) Band 17.3 H Neutrophils # Lymphocytes 0.8 (Manual) Lymphocytes # Reactive 0.6 H Lymphocytes # Monocytes # Monocytes # 0.2 L (Manual) Eosinophils # Basophils # Metamyelocytes 0.2 H # Myelocytes # 0.2 H Nucleated Red Blood Cells # Platelet DECREASED Estimate Poikilocytosis 2+ Anisocytosis 1+ Sodium Level 158 H Potassium Level 3.1 L Chloride Level 127 H Carbon Dioxide 26 Level Anion Gap 5 Blood Urea 33 H Nitrogen Creatinine 0.61 Est Glomerular Filtrat Rate mL/min Glucose Level 144 # Calcium Level 7.9 L Phosphorus 1.8 L Level Magnesium Level 2.1 Bedside Glucose 184 Blood Gas 10 Pressure Support Blood Gas [id number] Critical Value Read Back Test 06/12/19 09:27 06/12/19 11:00 06/12/19 12:57 06/12/19 16:29 Bedside Glucose 98 153 259 H Blood Gas Blood arterial Specimen Source Arterial Blood 06/12/2019 10:49 Date Drawn :50 AM Arterial Blood 7.374 pH (Temp corrected ) Arterial Blood 36.9 pCO2 (Temp correct) Arterial Blood 133.2 H pO2 (Temp corrected ) Arterial Blood 21.0 L HCO3 Arterial Blood -3.6 L Base Excess Arterial Blood 98.4 Oxygen Saturati on James Test ACCEPTAB Arterial Blood Left Radial Gas Puncture Site Arterial 0.3 Blood Carboxyhe moglobin Arterial Blood 0.3 Methemoglobin Blood Gas A-a 542.9 H O2 Differential Oxyhemoglobin 97.8 Percent Blood Gas 37.0 Temperature Blood Gas 16.0 Respiration Rate Blood Gas 16 Actual Respiration Rat e Blood Gas VENT - AC Modality FiO2 100.0 Blood Gas Tidal 450.0 Volume Blood Gas Low 5.0 PEEP Setting Blood Gas TM Notified Whom Blood Gas 06/12/2019 10:56 Notified Time :25 AM Medications Medication Current Medications IV Flush (NS 3 ml) 3 ml PER PROTOCOL IV ; Start 06/10/19 at 12:00 Ondansetron HCl (Zofran Inj) 4 mg Q6H PRN IV NAUSEA/VOMITING; Start 06/10/19 at 12:00 Acetaminophen (Tylenol Tab) 650 mg Q6H PRN PO .PAIN 1-3 OR TEMP; Start 06/10/19 at 12:00 Acetaminophen/ Hydrocodone Bitart ([place] (5/325)) 1 tab Q6H PRN PO .PAIN 4-6; Start 06/10/19 at 12:00 Morphine Sulfate (morphine) 2 mg Q4H PRN IV .PAIN 7-10; Start 06/10/19 at 12:00 Docusate Sodium (Colace) 100 mg Q12H PO Last administered on 06/12/19at 00:42; Admin Dose 100 MG; Start 06/10/19 at 12:00 Vancomycin HCl (Vanco Iv Per Pharmacy) VANCOMYCIN PER PHARMACY PER PROTOCOL XX ; Start 06/10/19 at 12:30 Amiodarone HCl (Cordarone) 100 mg DAILY GTB Last administered on 06/11/19at 09:11; Admin Dose 100 MG; Start 06/11/19 at 09:00; Status Hold Atorvastatin Calcium (Lipitor) 20 mg QHS GTB Last administered on 06/11/19at 20:23; Admin Dose 20 MG; Start 06/10/19 at 21:00 Levetiracetam (Keppra Liquid) 500 mg BID GTB Last administered on 06/12/19at 09:25; Admin Dose 500 MG; Start 06/10/19 at 21:00 Olanzapine (Zyprexa) 5 mg DAILY GTB Last administered on 06/12/19at 09:25; Admin Dose 5 MG; Start 06/11/19 at 09:00 Polyethylene Glycol (Miralax) 17 gm DAILY GTB Last administered on 06/11/19at 09:11; Admin Dose 17 GM; Start 06/11/19 at 09:00 Miscellaneous Information 1 ea NOTE XX ; Start 06/10/19 at 14:00 Glucose (Glutose) 15 gm Q15M PRN PO DECREASED GLUCOSE; Start 06/10/19 at 14:00 Glucose (Glutose) 22.5 gm Q15M PRN PO DECREASED GLUCOSE; Start 06/10/19 at 14:00 Dextrose (D50w Syringe) 25 ml Q15M PRN IV DECREASED GLUCOSE; Start 06/10/19 at 14:00 Dextrose (D50w Syringe) 50 ml Q15M PRN IV DECREASED GLUCOSE; Start 06/10/19 at 14:00 Glucagon (Glucagen) 1 mg Q15M PRN IM DECREASED GLUCOSE; Start 06/10/19 at 14:00 Glucose (Glutose) 15 gm Q15M PRN BUCCAL DECREASED GLUCOSE; Start 06/10/19 at 14:00 Norepinephrine 250 ml @ 1.875 mls/ hr TITRATE IV ; Start 06/10/19 at 15:00 Budesonide (Pulmicort (Neb)) 0.5 mg BID RESP THERAPY HHN Last administered on 06/12/19at 08:02; Admin Dose 0.5 MG; Start 06/10/19 at 20:00 IV Flush (NS 10 ml) 10 ml [id number] PRN IV Line Patency; Start 06/10/19 at 16:00 Fluvoxamine Maleate (Fluvoxamine Maleate) 25 mg DAILY GTB Last administered on 06/12/19 09:25; Admin Dose 25 MG; Start 06/11/19 at 09:00 Insulin Aspart (Novolog Insulin Pen) NOVOLOG *MODERATE* ALGORI... Q4 SC Last administered on 06/12/19 16:38; Admin Dose 6 UNIT; Start 06/11/19 at 05:00 Aspirin (Aspirin) 81 mg DAILY PEG Last administered on 06/12/19 09:25; Admin Dose 81 MG; Start 06/11/19 at 09:00 Heparin Sodium (Porcine) (Heparin (5000 Units/1ml)) 5,000 unit Q8 SC Last administered on 06/12/19 14:21; Admin Dose 5,000 UNIT; Start 06/11/19 at 14:00 Miscellaneous Information (*Rx Drug Level Order Reminder*) VANCO TR AT 1000 1000 ONCE XX ; Start 06/13/19 at 10:00; Stop 06/13/19 at 10:01 Potassium Chloride/Dextrose 1,000 ml @ 80 mls/hr [id number] IV Last administered on 06/11/19 20:52; Admin Dose 80 MLS/HR; Start 06/11/19 at 14:30 Vancomycin HCl 750 mg/Dextrose 250 ml @ 125 mls/hr Q24H IVPB Last administered on 06/12/19 11:47; Admin Dose 125 MLS/HR; Start 06/12/19 at 11:00 Piperacillin Sod/ Tazobactam Sod 3.375 gm/Dextrose 100 ml @ 200 mls/hr Q6 IVPB Last administered on 06/12/19 11:48; Admin Dose 200 MLS/HR; Start 06/12/19 at 12:00 Amiodarone HCl 200 ml @ 0 mls/hr IV INFUSION IV Last administered on 06/12/19 15:50; Admin Dose 33.3 MLS/HR; Start 06/12/19 at 10:20 Ipratropium [place] (Atrovent 0.02% (Neb)) 0.5 mg Q6HWA RESP THERAPY HHN Last administered on 06/12/19 13:56; Admin Dose 0.5 MG; Start 06/12/19 at 14:00 Ipratropium [place] (Atrovent 0.02% (Neb)) 0.5 mg Q4H RESP THERAPY PRN HHN SHORTNESS OF BREATH; Start 06/12/19 at 10:00 Levalbuterol (Xopenex Neb) 1.25 mg Q6H RESP THERAPY HHN Last administered on 06/12/19at 13:56; Admin Dose 1.25 MG; Start 06/12/19 at 14:00 Levalbuterol (Xopenex Neb) 1.25 mg Q4H RESP THERAPY PRN HHN shortness of breath; Start 06/12/19 at 10:00 Fentanyl 100 ml @ 2.5 mls/hr TITRATE IV Last administered on 06/12/19at 10:24; Admin Dose 2.5 MLS/HR; Start 06/12/19 at 10:00 Phenylephrine HCl 80 mg/Dextrose 250 ml @ 18.75 mls/ hr TITRATE IV Last administered on 06/12/19at 15:49; Admin Dose 37.5 MLS/HR; Start 06/12/19 at 14:00 NANCY BANKS Jun 12, 2019 16:59
[2019-06-12] MEDS: LEVALBUTEROL (HFA) 15 GM INHALER INH SCH (20:00)
[2019-06-12] MEDS: ATORVASTATIN 20 MG TAB GTB SCH (20:17)
[2019-06-12] MEDS: IPRATROPIUM (HFA) 12.9 GM INHALER INH SCH (20:37)
[2019-06-13] VITALS (104 sets, daily range): BP systolic 71–127; BP diastolic 37–86; PULSE 71–112; RESP 16–22
[2019-06-13] MEDS: ACETAMINOPHEN 325 MG TAB PO PRN ×2 (00:20→15:52)
[2019-06-13] MEDS: INSULIN ASPART [NOVOLOG] 3 ML PEN SC SCH ×6 (00:25→21:19)
[2019-06-13] MEDS: IPRATROPIUM (HFA) 12.9 GM INHALER INH SCH ×4 (01:21→20:14)
[2019-06-13] MEDS: LEVALBUTEROL (HFA) 15 GM INHALER INH SCH ×4 (01:21→20:14)
[2019-06-13] MEDS: D5W + KCL 20 MEQ 1,000 ML IV SCH (03:23)
[2019-06-13] MEDS: AMIODARONE 200 ML IV SCH (03:23)
[2019-06-13] MEDS: PIPERACILLIN/TAZO 3.375 GM in DEXTROSE 5% 100 ML IVPB SCH ×2 (05:15→11:31)
[2019-06-13] MEDS: HEPARIN 5,000 UNIT/1 ML VIAL SC SCH ×3 (05:23→21:53)
[2019-06-13] MEDS: PHENYLephrine 80 MG in DEXTROSE 5% 242 ML IV SCH ×4 (05:59→21:03)
[2019-06-13] MEDS: FENTAnyl (DRIP) 1000 mcg/100mL 100 ML IV SCH ×2 (07:02→16:50)
[2019-06-13] MEDS ORDERED: POTASSIUM CHLORIDE 100 ML IVPB ONE (07:30)
--- NOTE | 2019-06-13 08:06 | CONS ---
Assessment/Plan Assessment/Plan Assessment/Plan (Daily) 1. acute Hypernatremia due to severe dehydration - Improving 2. acute Hyperkalemia due to FLOYD - Resolved 3. acute kidney injury on CKD III due to ATN from sepsis and Prerenal azotemia 4 . Septic shock due to multifocal PNA 5. Acute hypoxic respiratory failure due to PNA and Septic shock - Failed BIPAP- Intubated on 06/12/19 6. H/O severe dementia 7. H/O HTN 8. H/O HL 9. SNF resident 10. acute on chronic encephalopathy 11 h/o Dysphagia S/p G tube placement Plan: Na slightly better to 147- BUN/Cr normal, K 3.3- KCL 20MEQ IV x 1 extra dose given , ,Conitnue IVF D5w with KCL 20mEQ at 80 cc/hr currenlty on IV abx meropenem , Renally dose all abx and monitor electrolytes Ventilator Management as per pulmonary Full Code, as per Son will follow up Consultation Date/Type/Reason Admit Date/Time Jun 10, 2019 at 12:38 Initial Consult Date 06/11/19 Type of Consult NEPHROLOGY Requesting Provider: MALINI GOMEZ Date/Time of Note DATE: 06/13/19 TIME: 08:06 Exam/Review of Systems Exam Vitals Vital Signs Date Temp Pulse Resp B/P (MAP) Pulse Ox O2 O2 Flow FiO2 Time Delivery Rate 06/13/19 85 18 94/61 (72) 92 Mechanical 07:00 Ventilator 06/13/19 80 05:10 06/13/19 99.2 04:00 06/10/19 15 10:25 Intake and Output 06/12/19 06/12/19 06/13/19 1515:00 23:00 07:00 IntakeIntake Total 1607.2 ml 1317.0 ml 1294.90 ml OutputOutput Total 490 ml 470 ml 235 ml BalanceBalance 1117.2 ml 847.0 ml 1059.90 ml Results Result Diagram: 06/13/19 0500 06/13/19 0447 Results 24hrs Laboratory Tests Test 06/12/19 09:06 06/12/19 09:27 06/12/19 11:00 06/12/19 12:57 Blood Gas Blood arterial Blood arterial Specimen Source Arterial Blood 06/12/2019 9:15: 06/12/2019 10:49 Date Drawn 20 AM :50 AM Arterial Blood 7.520 H 7.374 pH (Temp corrected) Arterial Blood 27.0 L 36.9 pCO2 (Temp correct) Arterial Blood 54.7 *L 133.2 H pO2 (Temp corrected) Arterial Blood 21.6 L 21.0 L HCO3 Arterial Blood -0.1 -3.6 L Base Excess Arterial Blood 91.1 L 98.4 Oxygen Saturatio n James Test ACCEPTAB ACCEPTAB Arterial Blood Right Radial Left Radial Gas Puncture Site Arterial 0.1 0.3 Blood Carboxyhem oglobin Arterial Blood 0.2 0.3 Methemoglobin Blood Gas A-a O2 631.3 H 542.9 H Differential Oxyhemoglobin 90.8 L 97.8 Percent Blood Gas 37.0 37.0 Temperature Blood Gas 16.0 16.0 Respiration Rate Blood Gas Actual 39 16 Respiration Rate Blood Gas MASK - BIPAP VENT - AC Modality FiO2 100.0 100.0 Blood Gas 10 Pressure Support Blood Gas 10 IPAP/EPAP Ratio Blood Gas [id number] ADOLPH Critical Value Read Back Blood Gas TM TM Notified Whom Blood Gas 06/12/2019 9:25: 06/12/2019 10:56 Notified Time 17 AM :25 AM Bedside Glucose 98 153 Blood Gas Tidal 450.0 Volume Blood Gas Low 5.0 PEEP Setting Test 06/12/19 16:29 06/12/19 16:36 06/12/19 20:15 06/12/19 20:57 Bedside Glucose 259 H 340 H 205 Sodium Level 153 H Potassium Level 3.5 Chloride Level 122 H Carbon Dioxide 24 Level Anion Gap 7 Blood Urea 32 H Nitrogen Creatinine 0.66 Est Glomerular Filtrat Rate mL/min Glucose Level 217 Calcium Level 7.8 L Test 06/13/19 00:25 06/13/19 04:24 06/13/19 04:47 06/13/19 05:00 Bedside Glucose 139 152 Sodium Level 147 H Potassium Level 3.3 L Chloride Level 116 H Carbon Dioxide 25 Level Anion Gap 6 Blood Urea 33 H Nitrogen Creatinine 0.72 Est Glomerular Filtrat Rate mL/min Glucose Level 185 Calcium Level 7.2 L Total Bilirubin 0.4 Direct Bilirubin 0.00 Indirect 0.4 Bilirubin Aspartate Amino 43 Transf (AST/SGOT ) Alanine 28 Aminotransferase (ALT/SGPT) Alkaline 111 Phosphatase Total Protein 5.1 L Albumin 2.3 L Globulin 2.80 Albumin/Globulin 0.82 Ratio White Blood 18.2 H Count Red Blood Count 3.45 L Hemoglobin 10.4 L Hematocrit 34.9 L Mean Corpuscular 101.2 H Volume Mean Corpuscular 30.1 Hemoglobin Mean Corpuscular 29.8 L Hemoglobin Christina nt Red Cell 15.9 H Distribution Width Platelet Count 103 L Mean Platelet 12.8 H Volume Immature 0.600 H Granulocytes % Neutrophils % Segmented 69 Neutrophils % (Manual) Band Neutrophils 24 H % (Manual) Lymphocytes % Lymphocytes % 6 L (Manual) Monocytes % Eosinophils % Eosinophils % 1 (Manual) Basophils % Nucleated Red 0.2 H Blood Cells % Immature 0.110 H Granulocytes # Neutrophils # Neutrophils # 13.3 H (Manual) Band Neutrophils 4.3 H # Lymphocytes 1.0 (Manual) Lymphocytes # Monocytes # Eosinophils # Basophils # Nucleated Red Blood Cells # Platelet DECREASED Estimate Poikilocytosis 2+ Spherocytes 1+ Test 06/13/19 05:01 Magnesium Level 2.0 Medications Medication Current Medications IV Flush (NS 3 ml) 3 ml PER PROTOCOL IV ; Start 06/10/19 at 12:00 Ondansetron HCl (Zofran Inj) 4 mg Q6H PRN IV NAUSEA/VOMITING; Start 06/10/19 at 12:00 Acetaminophen (Tylenol Tab) 650 mg Q6H PRN PO .PAIN 1-3 OR TEMP Last administer ed on 06/13/19at 00:20; Admin Dose 650 MG; Start 06/10/19 at 12:00 Acetaminophen/ Hydrocodone Bitart ([place] (5/325)) 1 tab Q6H PRN PO .PAIN 4-6; Start 06/10/19 at 12:00 Morphine Sulfate (morphine) 2 mg Q4H PRN IV .PAIN 7-10; Start 06/10/19 at 12:00 Docusate Sodium (Colace) 100 mg Q12H PO Last administered on 06/12/19at 00:42; Admin Dose 100 MG; Start 06/10/19 at 12:00 Vancomycin HCl (Vanco Iv Per Pharmacy) VANCOMYCIN PER PHARMACY PER PROTOCOL XX ; Start 06/10/19 at 12:30 Amiodarone HCl (Cordarone) 100 mg DAILY GTB Last administered on 06/11/19at 09:11; Admin Dose 100 MG; Start 06/11/19 at 09:00; Status Hold Atorvastatin Calcium (Lipitor) 20 mg QHS GTB Last administered on 06/12/19at 20:17; Admin Dose 20 MG; Start 06/10/19 at 21:00 Levetiracetam (Keppra Liquid) 500 mg BID GTB Last administered on 06/12/19at 20:17; Admin Dose 500 MG; Start 06/10/19 at 21:00 Olanzapine (Zyprexa) 5 mg DAILY GTB Last administered on 06/12/19at 09:25; Admin Dose 5 MG; Start 06/11/19 at 09:00 Polyethylene Glycol (Miralax) 17 gm DAILY GTB Last administered on 06/11/19at 09:11; Admin Dose 17 GM; Start 06/11/19 at 09:00 Miscellaneous Information 1 ea NOTE XX ; Start 06/10/19 at 14:00 Glucose (Glutose) 15 gm Q15M PRN PO DECREASED GLUCOSE; Start 06/10/19 at 14:00 Glucose (Glutose) 22.5 gm Q15M PRN PO DECREASED GLUCOSE; Start 06/10/19 at 14:00 Dextrose (D50w Syringe) 25 ml Q15M PRN IV DECREASED GLUCOSE; Start 06/10/19 at 14:00 Dextrose (D50w Syringe) 50 ml Q15M PRN IV DECREASED GLUCOSE; Start 06/10/19 at 14:00 Glucagon (Glucagen) 1 mg Q15M PRN IM DECREASED GLUCOSE; Start 06/10/19 at 14:00 Glucose (Glutose) 15 gm Q15M PRN BUCCAL DECREASED GLUCOSE; Start 06/10/19 at 14:00 Budesonide (Pulmicort (Neb)) 0.5 mg BID RESP THERAPY HHN Last administered on 06/12/19at 20:37; Admin Dose 0.5 MG; Start 06/10/19 at 20:00 IV Flush (NS 10 ml) 10 ml [id number] PRN IV Line Patency; Start 06/10/19 at 16:00 Fluvoxamine Maleate (Fluvoxamine Maleate) 25 mg DAILY GTB Last administered on 06/12/19at 09:25; Admin Dose 25 MG; Start 06/11/19 at 09:00 Insulin Aspart (Novolog Insulin Pen) NOVOLOG *MODERATE* ALGORI... Q4 SC Last administered on 06/13/19 04:30; Admin Dose 2 UNIT; Start 06/11/19 at 05:00 Aspirin (Aspirin) 81 mg DAILY PEG Last administered on 06/12/19 09:25; Admin Dose 81 MG; Start 06/11/19 at 09:00 Heparin Sodium (Porcine) (Heparin (5000 Units/1ml)) 5,000 unit Q8 SC Last administered on 06/13/19 05:23; Admin Dose 5,000 UNIT; Start 06/11/19 at 14:00 Miscellaneous Information (*Rx Drug Level Order Reminder*) VANCO TR AT 1000 1000 ONCE XX ; Start 06/13/19 at 10:00; Stop 06/13/19 at 10:01 Potassium Chloride/Dextrose 1,000 ml @ 80 mls/hr [id number] IV Last administered on 06/11/19 20:52; Admin Dose 80 MLS/HR; Start 06/11/19 at 14:30 Vancomycin HCl 750 mg/Dextrose 250 ml @ 125 mls/hr Q24H IVPB Last administered on 06/12/19at 11:47; Admin Dose 125 MLS/HR; Start 06/12/19 at 11:00 Piperacillin Sod/ Tazobactam Sod 3.375 gm/Dextrose 100 ml @ 200 mls/hr Q6 IVPB Last administered on 06/13/19 05:15; Admin Dose 200 MLS/HR; Start 06/12/19 at 12:00 Amiodarone HCl 200 ml @ 0 mls/hr IV INFUSION IV Last administered on 06/13/19 03:23; Admin Dose 16.7 MLS/HR; Start 06/12/19 at 10:20 Ipratropium [place] (Atrovent 0.02% (Neb)) 0.5 mg Q4H RESP THERAPY PRN HHN SHORTNESS OF BREATH; Start 06/12/19 at 10:00 Levalbuterol (Xopenex Neb) 1.25 mg Q4H RESP THERAPY PRN HHN shortness of b reath; Start 06/12/19 at 10:00 Fentanyl 100 ml @ 2.5 mls/hr TITRATE IV Last administered on 06/13/19 07:02; Admin Dose 10 MLS/HR; Start 06/12/19 at 10:00 Phenylephrine HCl 80 mg/Dextrose 250 ml @ 18.75 mls/ hr TITRATE IV Last administered on 06/13/19at 05:59; Admin Dose 37.5 MLS/HR; Start 06/12/19 at 14:00 Levalbuterol (Xopenex Hfa) 4 puff Q6H RESP THERAPY INH Last administered on 06/13/19 01:21; Admin Dose 4 PUFF; Start 06/12/19 at 20:00 Ipratropium [place] (Atrovent Hfa) 4 puff Q6H RESP THERAPY INH Last administered on 06/13/19at 01:21; Admin Dose 4 PUFF; Start 06/12/19 at 20:00 Potassium Chloride 100 ml @ 50 mls/hr ONCE ONCE IVPB Last administered on 06/13/19at 07:37; Admin Dose 50 MLS/HR; Start 06/13/19 at 07:30; Stop 06/13/19 at 09:29 Norepinephrine 32 mg/Dextrose 250 ml @ 0.47 mls/hr TITRATE IV ; Start 06/13/19 at 08:00 GERMAN FELIX MD Jun 13, 2019 08:06
[2019-06-13] MEDS: POLYETHYLENE GLYCOL 17 GM PACKET GTB SCH (09:00)
[2019-06-13] MEDS: FLUVOXAMINE MALEATE 25 MG TABLET GTB SCH (09:16)
[2019-06-13] MEDS: OLANZAPINE 5 MG TAB GTB SCH (09:16)
[2019-06-13] MEDS: LEVETIRACETAM (100 MG/ML) 5ML CUP GTB SCH ×2 (09:16→21:06)
[2019-06-13] MEDS: ASPIRIN 81 MG TAB PEG SCH (09:16)
[2019-06-13] MEDS: BALSAM PERU/CASTOR OIL 60 GM TUBE TOP SCH (09:17)
--- NOTE | 2019-06-13 09:19 | PN ---
Date/Time of Note Date/Time of Note DATE: 06/13/19 TIME: 09:17 Objective Vitals Vital Signs Date Temp Pulse Resp B/P (MAP) Pulse Ox O2 O2 Flow FiO2 Time Delivery Rate 06/13/19 89 16 82/54 (63) 92 Mechanical 09:00 Ventilator 06/13/19 99.3 08:00 06/13/19 80 05:10 06/10/19 15 10:25 Intake and Output 06/12/19 06/12/19 06/13/19 1515:00 23:00 07:00 IntakeIntake Total 1607.2 ml 1317.0 ml 1294.90 ml OutputOutput Total 490 ml 470 ml 235 ml BalanceBalance 1117.2 ml 847.0 ml 1059.90 ml Results Result Diagram: 06/13/19 0500 06/13/19 0447 Medications Medications Current Medications IV Flush (NS 3 ml) 3 ml PER PROTOCOL IV ; Start 06/10/19 at 12:00 Ondansetron HCl (Zofran Inj) 4 mg Q6H PRN IV NAUSEA/VOMITING; Start 06/10/19 at 12:00 Acetaminophen (Tylenol Tab) 650 mg Q6H PRN PO .PAIN 1-3 OR TEMP Last administered on 06/13/19at 00:20; Admin Dose 650 MG; Start 06/10/19 at 12:00 Acetaminophen/ Hydrocodone Bitart ([place] (5/325)) 1 tab Q6H PRN PO .PAIN 4-6; Start 06/10/19 at 12:00 Morphine Sulfate (morphine) 2 mg Q4H PRN IV .PAIN 7-10; Start 06/10/19 at 12:00 Docusate Sodium (Colace) 100 mg Q12H PO Last administered on 06/12/19at 00:42; Admin Dose 100 MG; Start 06/10/19 at 12:00 Vancomycin HCl (Vanco Iv Per Pharmacy) VANCOMYCIN PER PHARMACY PER PROTOCOL XX ; Start 06/10/19 at 12:30 Amiodarone HCl (Cordarone) 100 mg DAILY GTB Last administered on 06/11/19at 09:11; Admin Dose 100 MG; Start 06/11/19 at 09:00; Status Hold Atorvastatin Calcium (Lipitor) 20 mg QHS GTB Last administered on 06/12/19at 20:17; Admin Dose 20 MG; Start 06/10/19 at 21:00 Levetiracetam (Keppra Liquid) 500 mg BID GTB Last administered on 06/12/19at 20:17; Admin Dose 500 MG; Start 06/10/19 at 21:00 Olanzapine (Zyprexa) 5 mg DAILY GTB Last administered on 06/12/19at 09:25; Admin Dose 5 MG; Start 06/11/19 at 09:00 Polyethylene Glycol (Miralax) 17 gm DAILY GTB Last administered on 06/11/19at 09:11; Admin Dose 17 GM; Start 06/11/19 at 09:00 Miscellaneous Information 1 ea NOTE XX ; Start 06/10/19 at 14:00 Glucose (Glutose) 15 gm Q15M PRN PO DECREASED GLUCOSE; Start 06/10/19 at 14:00 Glucose (Glutose) 22.5 gm Q15M PRN PO DECREASED GLUCOSE; Start 06/10/19 at 14:00 Dextrose (D50w Syringe) 25 ml Q15M PRN IV DECREASED GLUCOSE; Start 06/10/19 at 14:00 Dextrose (D50w Syringe) 50 ml Q15M PRN IV DECREASED GLUCOSE; Start 06/10/19 at 14:00 Glucagon (Glucagen) 1 mg Q15M PRN IM DECREASED GLUCOSE; Start 06/10/19 at 14:00 Glucose (Glutose) 15 gm Q15M PRN BUCCAL DECREASED GLUCOSE; Start 06/10/19 at 14:00 Budesonide (Pulmicort (Neb)) 0.5 mg BID RESP THERAPY HHN Last administered on 06/12/19at 20:37; Admin Dose 0.5 MG; Start 06/10/19 at 20:00 IV Flush (NS 10 ml) 10 ml [id number] PRN IV Line Patency; Start 06/10/19 at 16:00 Fluvoxamine Maleate (Fluvoxamine Maleate) 25 mg DAILY GTB Last administered on 06/12/19at 09:25; Admin Dose 25 MG; Start 06/11/19 at 09:00 Insulin Aspart (Novolog Insulin Pen) NOVOLOG *MODERATE* ALGORI... Q4 SC Last administered on 06/13/19at 04:30; Admin Dose 2 UNIT; Start 06/11/19 at 05:00 Aspirin (Aspirin) 81 mg DAILY PEG Last administered on 06/12/19 09:25; Admin Dose 81 MG; Start 06/11/19 at 09:00 Heparin Sodium (Porcine) (Heparin (5000 Units/1ml)) 5,000 unit Q8 SC Last administered on 06/13/19 05:23; Admin Dose 5,000 UNIT; Start 06/11/19 at 14:00 Miscellaneous Information (*Rx Drug Level Order Reminder*) VANCO TR AT 1000 1000 ONCE XX ; Start 06/13/19 at 10:00; Stop 06/13/19 at 10:01 Potassium Chloride/Dextrose 1,000 ml @ 80 mls/hr [id number] IV Last administered on 06/11/19 20:52; Admin Dose 80 MLS/HR; Start 06/11/19 at 14:30; Status Hold Vancomycin HCl 750 mg/Dextrose 250 ml @ 125 mls/hr Q24H IVPB Last administered on 06/12/19 11:47; Admin Dose 125 MLS/HR; Start 06/12/19 at 11:00 Piperacillin Sod/ Tazobactam Sod 3.375 gm/Dextrose 100 ml @ 200 mls/hr Q6 IVPB Last administered on 06/13/19 05:15; Admin Dose 200 MLS/HR; Start 06/12/19 at 12:00 Amiodarone HCl 200 ml @ 0 mls/hr IV INFUSION IV Last administered on 06/13/19 03:23; Admin Dose 16.7 MLS/HR; Start 06/12/19 at 10:20 Ipratropium [place] (Atrovent 0.02% (Neb)) 0.5 mg Q4H RESP THERAPY PRN HHN SHORTNESS OF BREATH; Start 06/12/19 at 10:00 Levalbuterol (Xopenex Neb) 1.25 mg Q4H RESP THERAPY PRN HHN shortness of breath; Start 06/12/19 at 10:00 Fentanyl 100 ml @ 2.5 mls/hr TITRATE IV Last administered on 06/13/19 07:02; Admin Dose 10 MLS/HR; Start 06/12/19 at 10:00 Phenylephrine HCl 80 mg/Dextrose 250 ml @ 18.75 mls/ hr TITRATE IV Last administered on 7/19/19at 05:59; Admin Dose 37.5 MLS/HR; Start 06/12/19 at 14:00 Levalbuterol (Xopenex Hfa) 4 puff Q6H RESP THERAPY INH Last administered on 06/13/19at 08:08; Admin Dose 4 PUFF; Start 06/12/19 at 20:00 Ipratropium [place] (Atrovent Hfa) 4 puff Q6H RESP THERAPY INH Last administered on 06/13/19at 08:08; Admin Dose 4 PUFF; Start 06/12/19 at 20:00 Potassium Chloride 100 ml @ 50 mls/hr ONCE ONCE IVPB Last administered on 06/13/19at 07:37; Admin Dose 50 MLS/HR; Start 06/13/19 at 07:30; Stop 06/13/19 at 09:29 Norepinephrine 32 mg/Dextrose 250 ml @ 0.47 mls/hr TITRATE IV ; Start 06/13/19 at 08:00 VTE Prophylaxis Risk score (from [facility] [place])>0 risk: 14 SCD applied (from [facility] [place]): No SCD contraindication: other Lines/Catheters IV Catheter Type: Dial in Place: No Assessment/Plan Hospital Course Subjective Patient still intubated, no acute changes Objective Physical exam General: Patient is intubated Mentation: Patient is intubated and sedated Head: Normocephalic atraumatic Eyes: EOMI, pupils reactive to light Neck: Supple, nontender, midline Respiratory: Coarse to auscultation bilaterally Cardiovascular: Regular rate, no obvious murmurs Gastrointestinal: non-tender to palpation, bowel sounds heard. Neurological: Moves all extremities spontaneously to noxious stimuli Skin: No new skin lesions, PEG tube site present Assessment and plan Multifocal pneumonia -Broad-spectrum antibiotic to cover aspiration -Infectious disease consulted -Breathing treatments as needed -Pulmonology also on board Acute hypoxic respiratory failure -Likely secondary to above pneumonia -Pulmonology on board -Continue IV antibiotic -Currently intubated, pulmonology to extubate when able Septic shock versus severe sepsis -Pressors as needed, titrate off pressors when able -IV antibiotic -Pancultured Atrial fibrillation with RVR -Cardiology on board -Loading with amiodarone Non-ST elevated MA -Very mild elevation -Dr. Jimenez, cardiology has been consulted -Troponin stabilized -Aspirin, statin -Cardiology doubts true thrombotic MA Electrolyte derangement with hypernatremia -IV D5W stopped due to potential pulmonary edema, nephrology ordered change in tube feed free water flushes -Resolving. Chronic dysphasia -Patient has PEG tube -Monitor -Continue tube feeds Hyperglycemia with diabetes mellitus -Insulin sliding scale for now, patient became hypoglycemic with insulin drip. -Continue fluids as necessary Chronic encephalopathy -CT of the brain initially showed alarming findings however there appears to be a mixup with patient's name, patient's actual name is Trey Roberts, [id number]. Neurosurgeon was initially consulted for possible brain bleed and other findings however when comparing to the patient's actual chart in 2013, neurosurgeon reviewed the CT and MRI and found a similar findings with no acute emergent change. -Monitor closely, patient appears to be at baseline Hypertension -Hold hypertensive medications for now due to hypotension dyslipidemia -Continue home meds Mood disorder -Continue home meds Chronic kidney disease -Very mild, nephrology on board Failure to thrive -We will have discussion with patient's family on goals of care Disposition -Titrate off pressors when able, extubate when able -Continue ICU care -Over 40 minutes of critical care time was spent on this evaluation MALINI GOMEZ Jun 13, 2019 09:19
[2019-06-13] MEDS: BUDESONIDE (NEB) 0.5MG/2ML AMP HHN SCH ×2 (09:24→20:14)
[2019-06-13] MEDS: NORepinephrine 32 MG in DEXTROSE 5% 218 ML IV SCH (10:29)
[2019-06-13] MEDS: VANCOMYCIN 750 MG in DEXTROSE 5% 250 ML IVPB SCH (10:36)
[2019-06-13] MEDS: DOCUSATE SODIUM 100 MG CAP PO SCH ×2 (11:16→23:37)
[2019-06-13] MEDS: MEROPENEM 1 GM/50ML(PMX) 50 ML IVPB SCH ×2 (14:00→22:35)
--- NOTE | 2019-06-13 14:03 | PN ---
DATE: 06/13/2019 SUBJECTIVE: Patient remains intubated on Levophed drip. Spiked fever last night of 101.2, T-current 100.2. Urine culture growing Klebsiella pneumoniae, ESBL. Blood cultures remain negative. WBC 18. 2, platelets 103, bands 24, neutrophils 69. BUN 33, creatinine 0.72. ANTIMICROBIALS: The patient remains on: 1. Vancomycin. 2. Zosyn. INDWELLINGS: Endotracheal tube, PEG, Dial, PICC line placed on 06/10/2019. PHYSICAL EXAMINATION: GENERAL: This is a chronically ill-appearing, elderly woman who is intubated, sedated, in no distres s. HEENT: Head atraumatic, normocephalic. NECK: Supple. CHEST: Rise symmetrical. Breath sounds diminished to bases. HEART: S1, S2. ABDOMEN: Soft, bowel tones present. EXTREMITIES: With trace edema. ASSESSMENT: 1. Severe sepsis with shock. 2. Acute respiratory failure, possibly aspiration pneumonia. 3. Urinary tract infection with culture grew Klebsiella extended-spectrum beta-lactamase. 4. History of brain mass. 5. Chh-VW-tedfuxqhr myocardial infarction. 6. Atrial fibrillation status post rapid ventricular response. 7. Diabetes. PLAN: We are going to change Zosyn to Merrem, continue vancomycin. Follow chest x-ray and follow re commendations of specialists. Dictated By: JACKIE CORTÉS TAPE FOLDING MACHINE OPERATOR for LARISSA FARAH MD NI/NTS Conf#: [id number] DID#: [id number] CC: MALINI GOMEZ MD;*EndCC*
[2019-06-13] MEDS: ATORVASTATIN 20 MG TAB GTB SCH (21:06)
[2019-06-14] VITALS (105 sets, daily range): BP systolic 67–170; BP diastolic 34–97; PULSE 81–159; RESP 15–31
[2019-06-14] MEDS: INSULIN ASPART [NOVOLOG] 3 ML PEN SC SCH ×6 (00:39→21:31)
[2019-06-14] MEDS: PHENYLephrine 80 MG in DEXTROSE 5% 242 ML IV SCH ×5 (01:09→23:40)
[2019-06-14] MEDS: IPRATROPIUM (HFA) 12.9 GM INHALER INH SCH ×4 (01:31→19:49)
[2019-06-14] MEDS: LEVALBUTEROL (HFA) 15 GM INHALER INH SCH ×4 (01:31→19:48)
[2019-06-14] MEDS: FENTAnyl (DRIP) 1000 mcg/100mL 100 ML IV SCH ×3 (02:56→20:49)
[2019-06-14] MEDS ORDERED: VANCOMYCIN HCL 1.25 GM in DEXTROSE 5% 250 ML IVPB SCH (06:00)
[2019-06-14] MEDS: HEPARIN 5,000 UNIT/1 ML VIAL SC SCH (06:01)
--- NOTE | 2019-06-14 08:28 | CONS ---
Assessment/Plan Assessment/Plan Assessment/Plan (Daily) 1. acute Hypernatremia due to severe dehydration - Improving 2. acute Hyperkalemia due to FLOYD - Resolved 3. acute kidney injury on CKD III due to ATN from sepsis and Prerenal azotemia 4 . Septic shock due to multifocal PNA 5. Acute hypoxic respiratory failure due to PNA and Septic shock - Failed BIPAP- Intubated on 06/12/19 6. H/O severe dementia 7. H/O HTN 8. H/O HL 9. SNF resident 10. acute on chronic encephalopathy 11 h/o Dysphagia S/p G tube placement Plan: Na slightly better to 136- BUN/Cr normal, K replaced for today Conitnue IVF D5w with KCL 20mEQ at 80 cc/hr currenlty on IV abx meropenem , Renally dose all abx and monitor electrolytes Ventilator Management as per pulmonary Full Code, as per Son will follow up Consultation Date/Type/Reason Admit Date/Time Jun 10, 2019 at 12:38 Initial Consult Date 06/11/19 Type of Consult NEPHROLOGY Requesting Provider: MALINI GOMEZ Date/Time of Note DATE: 06/14/19 TIME: 08:28 Exam/Review of Systems Exam Vitals Vital Signs Date Temp Pulse Resp B/P (MAP) Pulse Ox O2 O2 Flow FiO2 Time Delivery Rate 06/14/19 103 16 81/51 (61) 87 07:00 06/14/19 Mechanical 06:45 Ventilator 06/14/19 100 06:26 06/14/19 98.9 04:00 06/10/19 15 10:25 Intake and Output 06/13/19 06/13/19 06/14/19 1515:00 23:00 07:00 IntakeIntake Total 1627.33 ml 1262.67 ml 1425.50 ml OutputOutput Total 180 ml 235 ml 250 ml BalanceBalance 1447.33 ml 1027.67 ml 1175.50 ml Results Result Diagram: 06/14/19 0310 06/14/19 0310 Results 24hrs Laboratory Tests Test 06/13/19 09:16 06/13/19 09:44 06/13/19 12:44 06/13/19 17:20 Bedside Glucose 193 186 259 H Vancomycin Level 8.7 L Trough Test 06/13/19 21:16 06/14/19 00:38 06/14/19 03:10 06/14/19 04:43 Bedside Glucose 220 136 158 White Blood Count 17.7 H Red Blood Count 3.43 L Hemoglobin 10.3 L Hematocrit 34.7 L Mean Corpuscular 101.2 H Volume Mean Corpuscular 30.0 Hemoglobin Mean Corpuscular 29.7 L Hemoglobin Concent Red Cell 15.3 H Distribution Width Platelet Count 81 #L Mean Platelet Volume 12.2 H Immature 1.700 H Granulocytes % Neutrophils % Lymphocytes % Monocytes % Eosinophils % Basophils % Nucleated Red Blood 0.2 H Cells % Immature 0.300 H Granulocytes # Neutrophils # Lymphocytes # Monocytes # Eosinophils # Basophils # Nucleated Red Blood Cells # Sodium Level 136 Potassium Level 4.1 Chloride Level 106 # Carbon Dioxide Level 26 Anion Gap 4 L Blood Urea Nitrogen 39 H Creatinine 0.96 Est Glomerular Filtrat Rate mL/min Glucose Level 149 Calcium Level 6.5 L Magnesium Level 2.0 Total Bilirubin 0.3 Direct Bilirubin 0.00 Indirect Bilirubin 0.3 Aspartate Amino 37 Transf (AST/SGOT) Alanine 32 Aminotransferase (AL T/SGPT) Alkaline Phosphatase 142 H Total Protein 4.4 L Albumin 1.9 L Globulin 2.50 Albumin/Globulin 0.76 Ratio Medications Medication Current Medications IV Flush (NS 3 ml) 3 ml PER PROTOCOL IV ; Start 06/10/19 at 12:00 Ondansetron HCl (Zofran Inj) 4 mg Q6H PRN IV NAUSEA/VOMITING; Start 06/10/19 at 12:00 Acetaminophen (Tylenol Tab) 650 mg Q6H PRN PO .PAIN 1-3 OR TEMP Last administered on 06/13/19at 15:52; Admin Dose 650 MG; Start 06/10/19 at 12:00 Acetaminophen/ Hydrocodone Bitart ([place] (5/325)) 1 tab Q6H PRN PO .PAIN 4-6; Start 06/10/19 at 12:00 Morphine Sulfate (morphine) 2 mg Q4H PRN IV .PAIN 7-10; Start 06/10/19 at 12:00 Docusate Sodium (Colace) 100 mg Q12H PO Last administered on 06/12/19at 00:42; Admin Dose 100 MG; Start 06/10/19 at 12:00 Vancomycin HCl (Vanco Iv Per Pharmacy) VANCOMYCIN PER PHARMACY PER PROTOCOL XX ; Start 06/10/19 at 12:30 Amiodarone HCl (Cordarone) 100 mg DAILY GTB Last administered on 06/11/19 09:11; Admin Dose 100 MG; Start 06/11/19 at 09:00; Status Hold Atorvastatin Calcium (Lipitor) 20 mg QHS GTB Last administered on 06/13/19 21:06; Admin Dose 20 MG; Start 06/10/19 at 21:00 Levetiracetam (Keppra Liquid) 500 mg BID GTB Last administered on 06/13/19at 21:06; Admin Dose 500 MG; Start 06/10/19 at 21:00 Olanzapine (Zyprexa) 5 mg DAILY GTB Last administered on 06/13/19 09:16; Admin Dose 5 MG; Start 06/11/19 at 09:00 Polyethylene Glycol (Miralax) 17 gm DAILY GTB Last administered on 06/11/19 09:11; Admin Dose 17 GM; Start 06/11/19 at 09:00 Miscellaneous Information 1 ea NOTE XX ; Start 06/10/19 at 14:00 Glucose (Glutose) 15 gm Q15M PRN PO DECREASED GLUCOSE; Start 06/10/19 at 14:00 Glucose (Glutose) 22.5 gm Q15M PRN PO DECREASED GLUCOSE; Start 06/10/19 at 14:00 Dextrose (D50w Syringe) 25 ml Q15M PRN IV DECREASED GLUCOSE; Start 06/10/19 at 14:00 Dextrose (D50w Syringe) 50 ml Q15M PRN IV DECREASED GLUCOSE; Start 06/10/19 at 14:00 Glucagon (Glucagen) 1 mg Q15M PRN IM DECREASED GLUCOSE; Start 06/10/19 at 14:00 Glucose (Glutose) 15 gm Q15M PRN BUCCAL DECREASED GLUCOSE; Start 06/10/19 at 14:00 Budesonide (Pulmicort (Neb)) 0.5 mg BID RESP THERAPY HHN Last administered on 06/13/19at 20:14; Admin Dose 0.5 MG; Start 06/10/19 at 20:00 IV Flush (NS 10 ml) 10 ml [id number] PRN IV Line Patency; Start 06/10/19 at 16:00 Fluvoxamine Maleate (Fluvoxamine Maleate) 25 mg DAILY GTB Last administered on 06/13/19 09:16; Admin Dose 25 MG; Start 06/11/19 at 09:00 Insulin Aspart (Novolog Insulin Pen) NOVOLOG *MODERATE* ALGORI... Q4 SC Last administered on 06/14/19 04:48; Admin Dose 2 UNIT; Start 06/11/19 at 05:00 Aspirin (Aspirin) 81 mg DAILY PEG Last administered on 06/13/19 09:16; Admin Dose 81 MG; Start 06/11/19 at 09:00 Heparin Sodium (Porcine) (Heparin (5000 Units/1ml)) 5,000 unit Q8 SC Last administered on 06/14/19 06:01; Admin Dose 5,000 UNIT; Start 06/11/19 at 14:00 Potassium Chloride/Dextrose 1,000 ml @ 80 mls/hr [id number] IV Last administered on 06/11/19 20:52; Admin Dose 80 MLS/HR; Start 06/11/19 at 14:30; Status Hold Ipratropium [place] (Atrovent 0.02% (Neb)) 0.5 mg Q4H RESP THERAPY PRN HHN SHORTNESS OF BREATH; Start 06/12/19 at 10:00 Levalbuterol (Xopenex Neb) 1.25 mg Q4H RESP THERAPY PRN HHN shortness of breath; Start 06/12/19 at 10:00 Fentanyl 100 ml @ 2.5 mls/hr TITRATE IV Last administered on 06/14/19 02:56; Admin Dose 10 MLS/HR; Start 06/12/19 at 10:00 Phenylephrine HCl 80 mg/Dextrose 250 ml @ 18.75 mls/ hr TITRATE IV Last administered on 06/14/19 05:41; Admin Dose 56.25 MLS/HR; Start 06/12/19 at 14:00 Levalbuterol (Xopenex Hfa) 4 puff Q6H RESP THERAPY INH Last administered on 06/14/19 07:37; Admin Dose 4 PUFF; Start 06/12/19 at 20:00 Ipratropium [place] (Atrovent Hfa) 4 puff Q6H RESP THERAPY INH Last administered on 06/14/19 07:37; Admin Dose 4 PUFF; Start 06/12/19 at 20:00 Norepinephrine 32 mg/Dextrose 250 ml @ 0.47 mls/hr TITRATE IV Last administered on 06/13/19 10:29; Admin Dose 0.47 MLS/HR; Start 06/13/19 at 08:00 Meropenem/Sodium Chloride 50 ml @ 100 mls/hr Q12 IVPB Last administered on 06/13/19at 22:35; Admin Dose 100 MLS/HR; Start 06/13/19 at 14:00 Vancomycin HCl 1.25 gm/Dextrose 250 ml @ 83.333 mls/ hr Q24H IVPB Last a dministered on 06/14/19at 05:34; Admin Dose 83.333 MLS/HR; Start 06/14/19 at 06:00 GERMAN FELIX MD Jun 14, 2019 08:28
--- NOTE | 2019-06-14 09:05 | PN ---
Date/Time of Note Date/Time of Note DATE: 06/14/19 TIME: 08:59 Objective Vitals Vital Signs Date Temp Pulse Resp B/P (MAP) Pulse Ox O2 O2 Flow FiO2 Time Delivery Rate 06/14/19 103 16 81/51 (61) 87 07:00 06/14/19 Mechanical 06:45 Ventilator 06/14/19 100 06:26 06/14/19 98.9 04:00 06/10/19 15 10:25 Intake and Output 06/13/19 06/13/19 06/14/19 1515:00 23:00 07:00 IntakeIntake Total 1627.33 ml 1262.67 ml 1425.50 ml OutputOutput Total 180 ml 235 ml 250 ml BalanceBalance 1447.33 ml 1027.67 ml 1175.50 ml Results Result Diagram: 06/14/19 0310 06/14/19 0310 Medications Medications Current Medications IV Flush (NS 3 ml) 3 ml PER PROTOCOL IV ; Start 06/10/19 at 12:00 Ondansetron HCl (Zofran Inj) 4 mg Q6H PRN IV NAUSEA/VOMITING; Start 06/10/19 at 12:00 Acetaminophen (Tylenol Tab) 650 mg Q6H PRN PO .PAIN 1-3 OR TEMP Last administered on 06/13/19at 15:52; Admin Dose 650 MG; Start 06/10/19 at 12:00 Acetaminophen/ Hydrocodone Bitart ([place] (5/325)) 1 tab Q6H PRN PO .PAIN 4-6; Start 06/10/19 at 12:00 Morphine Sulfate (morphine) 2 mg Q4H PRN IV .PAIN 7-10; Start 06/10/19 at 12:00 Docusate Sodium (Colace) 100 mg Q12H PO Last administered on 06/12/19at 00:42; Admin Dose 100 MG; Start 06/10/19 at 12:00 Vancomycin HCl (Vanco Iv Per Pharmacy) VANCOMYCIN PER PHARMACY PER PROTOCOL XX ; Start 06/10/19 at 12:30 Amiodarone HCl (Cordarone) 100 mg DAILY GTB Last administered on 06/11/19at 09:11; Admin Dose 100 MG; Start 06/11/19 at 09:00; Status Hold Atorvastatin Calcium (Lipitor) 20 mg QHS GTB Last administered on 06/13/19at 21:06; Admin Dose 20 MG; Start 06/10/19 at 21:00 Levetiracetam (Keppra Liquid) 500 mg BID GTB Last administered on 06/13/19at 21:06; Admin Dose 500 MG; Start 06/10/19 at 21:00 Olanzapine (Zyprexa) 5 mg DAILY GTB Last administered on 06/13/19 09:16; Admin Dose 5 MG; Start 06/11/19 at 09:00 Polyethylene Glycol (Miralax) 17 gm DAILY GTB Last administered on 06/11/19at 09:11; Admin Dose 17 GM; Start 06/11/19 at 09:00 Miscellaneous Information 1 ea NOTE XX ; Start 06/10/19 at 14:00 Glucose (Glutose) 15 gm Q15M PRN PO DECREASED GLUCOSE; Start 06/10/19 at 14:00 Glucose (Glutose) 22.5 gm Q15M PRN PO DECREASED GLUCOSE; Start 06/10/19 at 14:00 Dextrose (D50w Syringe) 25 ml Q15M PRN IV DECREASED GLUCOSE; Start 06/10/19 at 14:00 Dextrose (D50w Syringe) 50 ml Q15M PRN IV DECREASED GLUCOSE; Start 06/10/19 at 14:00 Glucagon (Glucagen) 1 mg Q15M PRN IM DECREASED GLUCOSE; Start 06/10/19 at 14:00 Glucose (Glutose) 15 gm Q15M PRN BUCCAL DECREASED GLUCOSE; Start 06/10/19 at 14:00 Budesonide (Pulmicort (Neb)) 0.5 mg BID RESP THERAPY HHN Last administered on 06/13/19at 20:14; Admin Dose 0.5 MG; Start 06/10/19 at 20:00 IV Flush (NS 10 ml) 10 ml [id number] PRN IV Line Patency; Start 06/10/19 at 16:00 Fluvoxamine Maleate (Fluvoxamine Maleate) 25 mg DAILY GTB Last administered on 06/13/19at 09:16; Admin Dose 25 MG; Start 06/11/19 at 09:00 Insulin Aspart (Novolog Insulin Pen) NOVOLOG *MODERATE* ALGORI... Q4 SC Last administered on 06/14/19at 04:48; Admin Dose 2 UNIT; Start 06/11/19 at 05:00 Aspirin (Aspirin) 81 mg DAILY PEG Last administered on 06/13/19 09:16; Admin Dose 81 MG; Start 06/11/19 at 09:00 Heparin Sodium (Porcine) (Heparin (5000 Units/1ml)) 5,000 unit Q8 SC Last administered on 06/14/19 06:01; Admin Dose 5,000 UNIT; Start 06/11/19 at 14:00; Status Hold Potassium Chloride/Dextrose 1,000 ml @ 80 mls/hr [id number] IV Last administered on 06/11/19 20:52; Admin Dose 80 MLS/HR; Start 06/11/19 at 14:30; Status Hold Ipratropium [place] (Atrovent 0.02% (Neb)) 0.5 mg Q4H RESP THERAPY PRN HHN SHORTNESS OF BREATH; Start 06/12/19 at 10:00 Levalbuterol (Xopenex Neb) 1.25 mg Q4H RESP THERAPY PRN HHN shortness of breath; Start 06/12/19 at 10:00 Fentanyl 100 ml @ 2.5 mls/hr TITRATE IV Last administered on 06/14/19 02:56; Admin Dose 10 MLS/HR; Start 06/12/19 at 10:00 Phenylephrine HCl 80 mg/Dextrose 250 ml @ 18.75 mls/ hr TITRATE IV Last administered on 06/14/19 05:41; Admin Dose 56.25 MLS/HR; Start 06/12/19 at 14:00 Levalbuterol (Xopenex Hfa) 4 puff Q6H RESP THERAPY INH Last administered on 06/14/19 07:37; Admin Dose 4 PUFF; Start 06/12/19 at 20:00 Ipratropium [place] (Atrovent Hfa) 4 puff Q6H RESP THERAPY INH Last administered on 06/14/19 07:37; Admin Dose 4 PUFF; Start 06/12/19 at 20:00 Norepinephrine 32 mg/Dextrose 250 ml @ 0.47 mls/hr TITRATE IV Last administered on 06/13/19 10:29; Admin Dose 0.47 MLS/HR; Start 06/13/19 at 08:00 Meropenem/Sodium Chloride 50 ml @ 100 mls/hr Q12 IVPB Last administered on 06/13/19at 22:35; Admin Dose 100 MLS/HR; Start 06/13/19 at 14:00 Vancomycin HCl 1.25 gm/Dextrose 250 ml @ 83.333 mls/ hr Q24H IVPB Last administered on 06/14/19at 05:34; Admin Dose 83.333 MLS/HR; Start 06/14/19 at 06:00 Sodium Bicarbonate 150 meq/Dextrose/ Sodium Chloride 1,150 ml @ 100 mls/hr [id number] IV ; Start 06/14/19 at 09:00; Status UNV VTE Prophylaxis Risk score [place]from [facility] [place] risk: 10 SCD applied (from [facility] [place] No SCD contraindication: other Lines/Catheters IV Catheter Type: Dorsey in Place: No Cont'd dorsey catheter reason: terminal illness/intractable pain Assessment/Plan Hospital Course Subjective Patient still intubated, respiratory status appears to have worsened overnight, patient now on 2 pressors, still low O2 saturation despite ventilation changes per pulmonology. Objective Physical exam General: Patient is intubated Mentation: Patient is intubated and sedated Head: Normocephalic atraumatic Eyes: EOMI, pupils reactive to light Neck: Supple, nontender, midline Respiratory: Coarse to auscultation bilaterally Cardiovascular: Regular rate, no obvious murmurs Gastrointestinal: non-tender to palpation, bowel sounds heard. Neurological: Moves all extremities spontaneously to noxious stimuli Skin: No new skin lesions, PEG tube site present Assessment and plan Multifocal pneumonia -Broad-spectrum antibiotic to cover aspiration -Infectious disease consulted -Breathing treatments as needed -Pulmonology also on board Acute hypoxic respiratory failure, worsening -Likely secondary to above pneumonia -Pulmonology on board -Continue IV antibiotic -Currently intubated, pulmonology to extubate when able Septic shock versus severe sepsis -Pressors as needed, titrate off pressors when able, patient is now on 2 pressors -IV antibiotic -Pancultured Atrial fibrillation with RVR -Cardiology on board -Rate controlled for now, continue amiodarone Non-ST elevated DC -Very mild elevation -Dr. Jimenez, cardiology has been consulted -Troponin stabilized -Aspirin, statin -Cardiology doubts true thrombotic DC Electrolyte derangement with hypernatremia -Fluids adjusted by nephrology and pulmonology -Resolving hypernatremia Hypocalcemia -With albumin correction, calcium is likely above 8 which is near normal, nephrology recommendations appreciated Thrombocytopenia -HIT panel and DIC panel sent out -Likely secondary to above septic shock and resultant possible DIC -Hold heparin for now Chronic dysphasia -Patient has PEG tube -Monitor -Continue tube feeds as tolerated Hyperglycemia with diabetes mellitus -Insulin sliding scale for now, patient became hypoglycemic with insulin drip. -Continue fluids as necessary Chronic encephalopathy -CT of the brain initially showed alarming findings however there appears to be a mixup with patient's name, patient's actual name is Trey Roberts, [id number]. Neurosurgeon was initially consulted for possible brain bleed and other findings however when comparing to the patient's actual chart in 2013, neurosurgeon reviewed the CT and MRI and found a similar findings with no acute emergent change. -Monitor closely, patient appears to be at baseline Hypertension -Hold hypertensive medications for now due to hypotension dyslipidemia -Continue home meds Mood disorder -Continue home meds Chronic kidney disease -Very mild, nephrology on board Failure to thrive -We will have discussion with patient's family on goals of care Disposition -Titrate off pressors when able, extubate when able -Continue ICU care -Spoke with patient's son, patient has extremely poor prognosis at this time, patient's quality of life was likely very low even before admission as she was near completely encephalopathic secondary to dementia with no meaningful conversation ability, discussed with the son regarding DNR status, patient's siblings are not on board with DNR status at this time he will attempt to talk to him. -Over 40 minutes of critical care time was spent on this evaluation MALINI OGMEZ Jun 14, 2019 09:05
[2019-06-14] MEDS ORDERED: NA BICARBONATE 8.4% 50 ML SYG IV ONE (09:30)
--- NOTE | 2019-06-14 09:44 | CONS ---
Consult Date/Type/Reason Admit Date/Time Jun 10, 2019 at 12:38 Initial Consult Date 06/11/19 Type of Consult Pulmonary Requesting Provider: MALINI GOMEZ Date/Time of Note DATE: 06/14/19 TIME: 09:42 Subjective Patient continues to decline now on 2 vasopressors with significant metabolic acidosis and respiratory acidosis noted. Still opening eyes appears to be agitated. Chest x-ray demonstrates extensive bilateral infiltrates consistent with ARDS. Objective Vital Signs Date Temp Pulse Resp B/P (MAP) Pulse Ox O2 O2 Flow FiO2 Time Delivery Rate 06/14/19 103 16 81/51 (61) 87 07:00 06/14/19 Mechanical 06:45 Ventilator 06/14/19 100 06:26 06/14/19 98.9 04:00 06/10/19 15 10:25 Intake and Output 06/13/19 06/13/19 06/14/19 1515:00 23:00 07:00 IntakeIntake Total 1627.33 ml 1262.67 ml 1425.50 ml OutputOutput Total 180 ml 235 ml 250 ml BalanceBalance 1447.33 ml 1027.67 ml 1175.50 ml Exam GENERAL: Elderly lady orally intubated on mechanical ventilation VITAL SIGNS: per chart NECK: Supple. No JVD or lymphadenopathy. CARDIAC EXAM: S1, S2. No added sounds or murmurs. CHEST: Diminished air entry bilaterally with rales ABDOMEN: Soft, nontender. No guarding or rebound. EXTREMITIES: No cyanosis, clubbing edema +2 NEUROLOGIC: Generalized weakness. Vent Setting Ventilator Support Mode: AC Fraction of Inspired Oxygen pe: 100 Positive End Expiratory Pressu: 10.0 Results/Medications Result Diagram: 06/14/19 0310 06/14/19 0310 Results 24 hrs Laboratory Tests Test 06/13/19 09:44 06/13/19 12:44 06/13/19 17:20 06/13/19 21:16 Vancomycin Level 8.7 L Trough Bedside Glucose 186 259 H 220 Test 06/14/19 00:38 06/14/19 03:10 06/14/19 04:43 06/14/19 07:00 Bedside Glucose 136 158 White Blood Count 17.7 H Red Blood Count 3.43 L Hemoglobin 10.3 L Hematocrit 34.7 L Mean Corpuscular 101.2 H Volume Mean Corpuscular 30.0 Hemoglobin Mean Corpuscular 29.7 L Hemoglobin Concen t Red Cell 15.3 H Distribution Width Platelet Count 81 #L Mean Platelet 12.2 H Volume Immature 1.700 H Granulocytes % Neutrophils % Segmented 67 Neutrophils % (Manual) Band Neutrophils 24 H % (Manual) Lymphocytes % Lymphocytes % 3 L (Manual) Monocytes % Monocytes % 5 (Manual) Eosinophils % Eosinophils % 1 (Manual) Basophils % Nucleated Red 2 H Blood Cells % Immature 0.300 H Granulocytes # Neutrophils # Neutrophils # 12.6 H (Manual) Band Neutrophils 4.2 H # Lymphocytes 0.5 L (Manual) Lymphocytes # Monocytes # Monocytes # 0.8 (Manual) Eosinophils # Basophils # Nucleated Red Blood Cells # Toxic Granulation 2+ Platelet Estimate DECREASED Giant Platelets 2 H Poikilocytosis 3+ Anisocytosis 1+ Macrocytosis 1+ Sodium Level 136 Potassium Level 4.1 Chloride Level 106 # Carbon Dioxide 26 Level Anion Gap 4 L Blood Urea 39 H Nitrogen Creatinine 0.96 Est Glomerular Filtrat Rate mL/min Glucose Level 149 Calcium Level 6.5 L Magnesium Level 2.0 Total Bilirubin 0.3 Direct Bilirubin 0.00 Indirect 0.3 Bilirubin Aspartate Amino 37 Transf (AST/SGOT) Alanine 32 Aminotransferase (ALT/SGPT) Alkaline 142 H Phosphatase Total Protein 4.4 L Albumin 1.9 L Globulin 2.50 Albumin/Globulin 0.76 Ratio Blood Gas Blood arterial Specimen Source Arterial Blood 06/14/2019 8:25:5 Date Drawn 3 AM Arterial Blood pH 7.142 *L (Temp corrected) Arterial Blood 63.9 H pCO2 (Temp correct) Arterial Blood 52.4 *L pO2 (Temp corrected) Arterial Blood 21.4 L HCO3 Arterial Blood -8.1 L Base Excess Arterial Blood 85.2 L Oxygen Saturation James Test ACCEPTAB Arterial Blood Right Radial Gas Puncture Site Arterial 0.2 Blood Carboxyhemo globin Arterial Blood 0.2 Methemoglobin Blood Gas A-a O2 596.7 H Differential Oxyhemoglobin 84.9 L Percent Blood Gas 37.0 Temperature Blood Gas 16.0 Respiration Rate Blood Gas Actual 17 Respiration Rate Blood Gas VENT - AC Modality FiO2 100.0 Blood Gas Tidal 450.0 Volume Blood Gas Low 10.0 PEEP Setting Blood Gas Nai CALI RCP Critical Value Read Back Blood Gas Nai COTTER RCP Notified Whom Blood Gas 06/14/2019 8:39:4 Notified Time 4 AM Medications Current Medications IV Flush (NS 3 ml) 3 ml PER PROTOCOL IV ; Start 06/10/19 at 12:00 Ondansetron HCl (Zofran Inj) 4 mg Q6H PRN IV NAUSEA/VOMITING; Start 06/10/19 at 12:00 Acetaminophen (Tylenol Tab) 650 mg Q6H PRN PO .PAIN 1-3 OR TEMP Last administered on 06/13/19at 15:52; Admin Dose 650 MG; Start 06/10/19 at 12:00 Acetaminophen/ Hydrocodone Bitart ([place] (5/325)) 1 tab Q6H PRN PO .PAIN 4-6; Start 06/10/19 at 12:00 Morphine Sulfate (morphine) 2 mg Q4H PRN IV .PAIN 7-10; Start 06/10/19 at 12:00 Docusate Sodium (Colace) 100 mg Q12H PO Last administered on 06/12/19at 00:42; Admin Dose 100 MG; Start 06/10/19 at 12:00 Vancomycin HCl (Vanco Iv Per Pharmacy) VANCOMYCIN PER PHARMACY PER PROTOCOL XX ; Start 06/10/19 at 12:30 Amiodarone HCl (Cordarone) 100 mg DAILY GTB Last administered on 06/11/19at 09:11; Admin Dose 100 MG; Start 06/11/19 at 09:00 Atorvastatin Calcium (Lipitor) 20 mg QHS GTB Last administered on 06/13/19at 21:06; Admin Dose 20 MG; Start 06/10/19 at 21:00 Levetiracetam (Keppra Liquid) 500 mg BID GTB Last administered on 06/13/19at 21:06; Admin Dose 500 MG; Start 06/10/19 at 21:00 Olanzapine (Zyprexa) 5 mg DAILY GTB Last administered on 06/13/19at 09:16; Admin Dose 5 MG; Start 06/11/19 at 09:00 Polyethylene Glycol (Miralax) 17 gm DAILY GTB Last administered on 06/11/19at 09:11; Admin Dose 17 GM; Start 06/11/19 at 09:00 Miscellaneous Information 1 ea NOTE XX ; Start 06/10/19 at 14:00 Glucose (Glutose) 15 gm Q15M PRN PO DECREASED GLUCOSE; Start 06/10/19 at 14:00 Glucose (Glutose) 22.5 gm Q15M PRN PO DECREASED GLUCOSE; Start 06/10/19 at 14:00 Dextrose (D50w Syringe) 25 ml Q15M PRN IV DECREASED GLUCOSE; Start 06/10/19 at 14:00 Dextrose (D50w Syringe) 50 ml Q15M PRN IV DECREASED GLUCOSE; Start 06/10/19 at 14:00 Glucagon (Glucagen) 1 mg Q15M PRN IM DECREASED GLUCOSE; Start 06/10/19 at 14:00 Glucose (Glutose) 15 gm Q15M PRN BUCCAL DECREASED GLUCOSE; Start 06/10/19 at 14:00 Budesonide (Pulmicort (Neb)) 0.5 mg BID RESP THERAPY HHN Last administered on 06/13/19at 20:14; Admin Dose 0.5 MG; Start 06/10/19 at 20:00 IV Flush (NS 10 ml) 10 ml [id number] PRN IV Line Patency; Start 06/10/19 at 16:00 Fluvoxamine Maleate (Fluvoxamine Maleate) 25 mg DAILY GTB Last administered on 06/13/19at 09:16; Admin Dose 25 MG; Start 06/11/19 at 09:00 Insulin Aspart (Novolog Insulin Pen) NOVOLOG *MODERATE* ALGORI... Q4 SC Last administered on 06/14/19at 04:48; Admin Dose 2 UNIT; Start 06/11/19 at 05:00 Aspirin (Aspirin) 81 mg DAILY PEG Last administered on 06/13/19at 09:16; Admin Dose 81 MG; Start 06/11/19 at 09:00 Heparin Sodium (Porcine) (Heparin (5000 Units/1ml)) 5,000 unit Q8 SC Last administered on 06/14/19at 06:01; Admin Dose 5,000 UNIT; Start 06/11/19 at 14:00; Status Hold Potassium Chloride/Dextrose 1,000 ml @ 80 mls/hr [id number] IV Last administered on 06/11/19at 20:52; Admin Dose 80 MLS/HR; Start 06/11/19 at 14:30; Status Hold Ipratropium [place] (Atrovent 0.02% (Neb)) 0.5 mg Q4H RESP THERAPY PRN HHN SHORTNESS OF BREATH; Start 06/12/19 at 10:00 Levalbuterol (Xopenex Neb) 1.25 mg Q4H RESP THERAPY PRN HHN shortness of breath; Start 06/12/19 at 10:00 Fentanyl 100 ml @ 2.5 mls/hr TITRATE IV Last administered on 06/14/19at 02:56; Admin Dose 10 MLS/HR; Start 06/12/19 at 10:00 Phenylephrine HCl 80 mg/Dextrose 250 ml @ 18.75 mls/ hr TITRATE IV Last administered on 06/14/19 05:41; Admin Dose 56.25 MLS/HR; Start 06/12/19 at 14 :00 Levalbuterol (Xopenex Hfa) 4 puff Q6H RESP THERAPY INH Last administered on 06/14/19 07:37; Admin Dose 4 PUFF; Start 06/12/19 at 20:00 Ipratropium [place] (Atrovent Hfa) 4 puff Q6H RESP THERAPY INH Last administered on 06/14/19 07:37; Admin Dose 4 PUFF; Start 06/12/19 at 20:00 Norepinephrine 32 mg/Dextrose 250 ml @ 0.47 mls/hr TITRATE IV Last administered on 06/13/19 10:29; Admin Dose 0.47 MLS/HR; Start 06/13/19 at 08:00 Meropenem/Sodium Chloride 50 ml @ 100 mls/hr Q12 IVPB Last administered on 06/13/19 22:35; Admin Dose 100 MLS/HR; Start 06/13/19 at 14:00 Vancomycin HCl 1.25 gm/Dextrose 250 ml @ 83.333 mls/ hr Q24H IVPB Last administered on 06/14/19 05:34; Admin Dose 83.333 MLS/HR; Start 06/14/19 at 06:00 Sodium Bicarbonate 150 meq/Dextrose/ Sodium Chloride 1,000 ml @ 100 mls/hr Q10H IV ; Start 06/14/19 at 10:00 Assessment/Plan Hospital Course (Demo Recall) Assessment 1. Acute hypoxemic and hypercapnic respiratory failure 2. Severe metabolic and respiratory acidosis 3. Refractory septic shock likely secondary to pneumonia 4. Encephalopathy toxic metabolic 5. Thrombocytopenia possible DIC 6. Dysphagia secondary to above Plan 1. Continue mechanical ventilation increase minute ventilation for hypercapnia 2. Increased sedation for agitation 3. Continue broad-spectrum antibiotic coverage 4. Empiric steroid trial for refractory shock 5. Tube feeding if tolerated 6. Primary care team contacted next of kin they wish to continue all aggressive measures however understand that prognosis is very poor and patient may not survive this admission. Critical care time 40 minutes LAVERNE HYDE MD, [facility] Jun 14, 2019 09:44
[2019-06-14] MEDS: LEVETIRACETAM (100 MG/ML) 5ML CUP GTB SCH ×2 (09:51→21:29)
[2019-06-14] MEDS: POLYETHYLENE GLYCOL 17 GM PACKET GTB SCH (09:51)
[2019-06-14] MEDS: ASPIRIN 81 MG TAB PEG SCH (09:51)
[2019-06-14] MEDS: FLUVOXAMINE MALEATE 25 MG TABLET GTB SCH (09:51)
[2019-06-14] MEDS: OLANZAPINE 5 MG TAB GTB SCH (09:51)
[2019-06-14] MEDS: BALSAM PERU/CASTOR OIL 60 GM TUBE TOP SCH (09:52)
[2019-06-14] MEDS: AMIODARONE 200 MG TAB GTB SCH (09:53)
[2019-06-14] MEDS: MEROPENEM 1 GM/50ML(PMX) 50 ML IVPB SCH ×2 (09:53→21:29)
--- NOTE | 2019-06-14 09:55 | CONS ---
Assessment/Plan Assessment/Plan Hospital Course (Demo Recall) ID PROGRESS NOTE CURRENT ABX: DAY # 5=>Vanco IV + Merrem s/p zosyn 06/14/19 0310 06/14/19 0310 24H INTERVAL SUMMARY * Elderly F -- Tmax yesterday 100.9, WBC slightly down, * Remains septic with ARDS on mechanical vent w/intermittent agitation * INDWELLINGS: Endotracheal tube, PEG, Dial, PICC line placed on 06/10/2019. DIAGNOSTIC IMAGING * 06/14/19 CXR: Increased bilateral interstitial and alveolar infiltrates concerning for edema, multifocal pneumonia, or pneumonitis. Small left pleural effusion increased. MICRO * 06/12/19 RESPIRATORY CULTURE Preliminary Organism 1 MANINDER ALBICANS QUANTITY SCANT GROWTH * 06/10/19 BCx (-) * 06/10/19 URINE CULTURE Final Organism 1 K PNEUMO ESBL COLONY COUNT >100,000 CFU/ml . MULTI DRUG RESISTANT ORGANISM KLEB PNEUM KLEB PNEUM M.I.C. RX M.I.C. RX --------- --- --------- --- AMIKACIN 16 S CEFAZOLIN R CEFEPIME R CEFOTAXIME R CIPROFLOXACIN >=4 R GENTAMICIN >=16 R LEVOFLOXACIN >=8 R MEROPENEM 0.38 S NITROFURANTOIN 256 R TOBRAMYCIN >=16 R TRIMETHOPRIM/SULFAMETHOXAZOLE >=320 R PIPERACILLIN/TAZOBACTAM >=128 R PHYSICAL EXAMINATION: GENERAL: VSS, NAD HEENT: AT, NC, orally intubated NECK: Supple, CHEST: Rise symmetrical HEART: Pulse RRR ABDOMEN: Benign EXTREMITIES: Warm, dry SKIN: No rash, no diaphoresis ID ASSESSMENT 84 yo F admit with: 1. Severe sepsis with shock. 2. Acute respiratory failure, possibly aspiration pneumonia. 3. Urinary tract infection with culture grew Klebsiella extended-spectrum beta- lactamase. 4. History of brain mass. 5. Gwh-VG-gulxtywjw myocardial infarction. 6. Atrial fibrillation status post rapid ventricular response. 7. Diabetes. (-)MRSA Nares ABX ALLERGIES: KNDA INVASIVES: ETT, PEG, Dial, PICC line placed on 06/10/2019. CURRENT ABX: DAY # 5=>Vanco IV + Merrem s/p zosyn ID RECOMMENDATIONS/PLAN: 1. Continue ABX for ARDS -- follow call center consultant recs . Consultation Date/Type/Reason Admit Date/Time Jun 10, 2019 at 12:38 Initial Consult Date 06/11/19 Requesting Provider: MALINI GOMEZ Date/Time of Note DATE: 06/14/19 TIME: 09:54 Exam/Review of Systems Exam Vitals Vital Signs Date Temp Pulse Resp B/P (MAP) Pulse Ox O2 O2 Flow FiO2 Time Delivery Rate 06/14/19 103 16 81/51 (61) 87 07:00 06/14/19 Mechanical 06:45 Ventilator 06/14/19 100 06:26 06/14/19 98.9 04:00 06/10/19 15 10:25 Intake and Output 06/13/19 06/13/19 06/14/19 1515:00 23:00 07:00 IntakeIntake Total 1627.33 ml 1262.67 ml 1425.50 ml OutputOutput Total 180 ml 235 ml 250 ml BalanceBalance 1447.33 ml 1027.67 ml 1175.50 ml Results Result Diagram: 06/14/19 0310 06/14/19 0310 Results 24hrs Laboratory Tests Test 06/13/19 12:44 06/13/19 17:20 06/13/19 21:16 06/14/19 00:38 Bedside Glucose 186 259 H 220 136 Test 06/14/19 03:10 06/14/19 04:43 06/14/19 07:00 White Blood Count 17.7 H Red Blood Count 3.43 L Hemoglobin 10.3 L Hematocrit 34.7 L Mean Corpuscular 101.2 H Volume Mean Corpuscular 30.0 Hemoglobin Mean Corpuscular 29.7 L Hemoglobin Concen t Red Cell 15.3 H Distribution Width Platelet Count 81 #L Mean Platelet 12.2 H Volume Immature 1.700 H Granulocytes % Neutrophils % Segmented 67 Neutrophils % (Manual) Band Neutrophils 24 H % (Manual) Lymphocytes % Lymphocytes % 3 L (Manual) Monocytes % Monocytes % 5 (Manual) Eosinophils % Eosinophils % 1 (Manual) Basophils % Nucleated Red 2 H Blood Cells % Immature 0.300 H Granulocytes # Neutrophils # Neutrophils # 12.6 H (Manual) Band Neutrophils 4.2 H # Lymphocytes 0.5 L (Manual) Lymphocytes # Monocytes # Monocytes # 0.8 (Manual) Eosinophils # Basophils # Nucleated Red Blood Cells # Toxic Granulation 2+ Platelet Estimate DECREASED Giant Platelets 2 H Poikilocytosis 3+ Anisocytosis 1+ Macrocytosis 1+ Sodium Level 136 Potassium Level 4.1 Chloride Level 106 # Carbon Dioxide 26 Level Anion Gap 4 L Blood Urea 39 H Nitrogen Creatinine 0.96 Est Glomerular Filtrat Rate mL/min Glucose Level 149 Calcium Level 6.5 L Magnesium Level 2.0 Total Bilirubin 0.3 Direct Bilirubin 0.00 Indirect 0.3 Bilirubin Aspartate Amino 37 Transf (AST/SGOT) Alanine 32 Aminotransferase (ALT/SGPT) Alkaline 142 H Phosphatase Total Protein 4.4 L Albumin 1.9 L Globulin 2.50 Albumin/Globulin 0.76 Ratio Bedside Glucose 158 Blood Gas Blood arterial Specimen Source Arterial Blood 06/14/2019 8:25:5 Date Drawn 3 AM Arterial Blood pH 7.142 *L (Temp corrected) Arterial Blood 63.9 H pCO2 (Temp correct) Arterial Blood 52.4 *L pO2 (Temp corrected) Arterial Blood 21.4 L HCO3 Arterial Blood -8.1 L Base Excess Arterial Blood 85.2 L Oxygen Saturation James Test ACCEPTAB Arterial Blood Right Radial Gas Puncture Site Arterial 0.2 Blood Carboxyhemo globin Arterial Blood 0.2 Methemoglobin Blood Gas A-a O2 596.7 H Differential Oxyhemoglobin 84.9 L Percent Blood Gas 37.0 Temperature Blood Gas 16.0 Respiration Rate Blood Gas Actual 17 Respiration Rate Blood Gas VENT - AC Modality FiO2 100.0 Blood Gas Tidal 450.0 Volume Blood Gas Low 10.0 PEEP Setting Blood Gas Nai CALI [facility] Critical Value Read Back Blood Gas Nai COTTER [facility] Notified Whom Blood Gas 06/14/2019 8:39:4 Notified Time 4 AM Medications Medication Current Medications IV Flush (NS 3 ml) 3 ml PER PROTOCOL IV ; Start 06/10/19 at 12:00 Ondansetron HCl (Zofran Inj) 4 mg Q6H PRN IV NAUSEA/VOMITING; Start 06/10/19 at 12:00 Acetaminophen (Tylenol Tab) 650 mg Q6H PRN PO .PAIN 1-3 OR TEMP Last administered on 06/13/19at 15:52; Admin Dose 650 MG; Start 06/10/19 at 12:00 Acetaminophen/ Hydrocodone Bitart ([place] (5/325)) 1 tab Q6H PRN PO .PAIN 4-6; Start 06/10/19 at 12:00 Morphine Sulfate (morphine) 2 mg Q4H PRN IV .PAIN 7-10; Start 06/10/19 at 12:00 Docusate Sodium (Colace) 100 mg Q12H PO Last administered on 06/12/19at 00:42; Admin Dose 100 MG; Start 06/10/19 at 12:00 Vancomycin HCl (Vanco Iv Per Pharmacy) VANCOMYCIN PER PHARMACY PER PROTOCOL XX ; Start 06/10/19 at 12:30 Amiodarone HCl (Cordarone) 100 mg DAILY GTB Last administered on 06/11/19at 09:11; Admin Dose 100 MG; Start 06/11/19 at 09:00 Atorvastatin Calcium (Lipitor) 20 mg QHS GTB Last administered on 06/13/19at 21:06; Admin Dose 20 MG; Start 06/10/19 at 21:00 Levetiracetam (Keppra Liquid) 500 mg BID GTB Last administered on 06/13/19at 21:06; Admin Dose 500 MG; Start 06/10/19 at 21:00 Olanzapine (Zyprexa) 5 mg DAILY GTB Last administered on 06/13/19at 09:16; Admin Dose 5 MG; Start 06/11/19 at 09:00 Polyethylene Glycol (Miralax) 17 gm DAILY GTB Last administered on 06/11/19at 09:11; Admin Dose 17 GM; Start 06/11/19 at 09:00 Miscellaneous Information 1 ea NOTE XX ; Start 06/10/19 at 14:00 Glucose (Glutose) 15 gm Q15M PRN PO DECREASED GLUCOSE; Start 06/10/19 at 14:00 Glucose (Glutose) 22.5 gm Q15M PRN PO DECREASED GLUCOSE; Start 06/10/19 at 14:00 Dextrose (D50w Syringe) 25 ml Q15M PRN IV DECREASED GLUCOSE; Start 06/10/19 at 14:00 Dextrose (D50w Syringe) 50 ml Q15M PRN IV DECREASED GLUCOSE; Start 06/10/19 at 14:00 Glucagon (Glucagen) 1 mg Q15M PRN IM DECREASED GLUCOSE; Start 06/10/19 at 14:00 Glucose (Glutose) 15 gm Q15M PRN BUCCAL DECREASED GLUCOSE; Start 06/10/19 at 14:00 Budesonide (Pulmicort (Neb)) 0.5 mg BID RESP THERAPY HHN Last administered on 06/13/19 20:14; Admin Dose 0.5 MG; Start 06/10/19 at 20:00 IV Flush (NS 10 ml) 10 ml [id number] PRN IV Line Patency; Start 06/10/19 at 16:00 Fluvoxamine Maleate (Fluvoxamine Maleate) 25 mg DAILY GTB Last administered on 06/13/19 09:16; Admin Dose 25 MG; Start 06/11/19 at 09:00 Insulin Aspart (Novolog Insulin Pen) NOVOLOG *MODERATE* ALGORI... Q4 SC Last administered on 06/14/19 04:48; Admin Dose 2 UNIT; Start 06/11/19 at 05:00 Aspirin (Aspirin) 81 mg DAILY PEG Last administered on 06/13/19 09:16; Admin Dose 81 MG; Start 06/11/19 at 09:00 Heparin Sodium (Porcine) (Heparin (5000 Units/1ml)) 5,000 unit Q8 SC Last administered on 06/14/19 06:01; Admin Dose 5,000 UNIT; Start 06/11/19 at 14:00; Status Hold Potassium Chloride/Dextrose 1,000 ml @ 80 mls/hr [id number] IV Last administered on 06/11/19 20:52; Admin Dose 80 MLS/HR; Start 06/11/19 at 14:30; Status Hold Ipratropium [place] (Atrovent 0.02% (Neb)) 0.5 mg Q4H RESP THERAPY PRN HHN SHORTNESS OF BREATH; Start 06/12/19 at 10:00 Levalbuterol (Xopenex Neb) 1.25 mg Q4H RESP THERAPY PRN HHN shortness of idalmis ath; Start 06/12/19 at 10:00 Fentanyl 100 ml @ 2.5 mls/hr TITRATE IV Last administered on 06/14/19 02:56; Admin Dose 10 MLS/HR; Start 06/12/19 at 10:00 Phenylephrine HCl 80 mg/Dextrose 250 ml @ 18.75 mls/ hr TITRATE IV Last administered on 06/14/19 05:41; Admin Dose 56.25 MLS/HR; Start 06/12/19 at 14:00 Levalbuterol (Xopenex Hfa) 4 puff Q6H RESP THERAPY INH Last administered on 06/14/19 07:37; Admin Dose 4 PUFF; Start 06/12/19 at 20:00 Ipratropium [place] (Atrovent Hfa) 4 puff Q6H RESP THERAPY INH Last administered on 06/14/19 07:37; Admin Dose 4 PUFF; Start 06/12/19 at 20:00 Norepinephrine 32 mg/Dextrose 250 ml @ 0.47 mls/hr TITRATE IV Last administered on 06/13/19 10:29; Admin Dose 0.47 MLS/HR; Start 06/13/19 at 08:00 Meropenem/Sodium Chloride 50 ml @ 100 mls/hr Q12 IVPB Last administered on 06/13/19 22:35; Admin Dose 100 MLS/HR; Start 06/13/19 at 14:00 Vancomycin HCl 1.25 gm/Dextrose 250 ml @ 83.333 mls/ hr Q24H IVPB Last administered on 06/14/19at 05:34; Admin Dose 83.333 MLS/HR; Start 06/14/19 at 06:00 Sodium Bicarbonate 150 meq/Dextrose/ Sodium Chloride 1,000 ml @ 100 mls/hr Q10H IV ; Start 06/14/19 at 10:00 Hydrocortisone (Solu-Cortef) 100 mg Q8 IV ; Start 06/14/19 at 10:00 ELIAS BRINK NP Jun 14, 2019 09:55
[2019-06-14] MEDS: SODIUM BICARBONATE (IV ADD) 150 MEQ in DEXTROSE 5%-0.45% NACL 850 ML IV SCH ×2 (10:11→21:24)
[2019-06-14] MEDS: HYDROCORTISONE 100 MG INJ IV SCH ×3 (10:15→21:50)
[2019-06-14] MEDS: DOCUSATE SODIUM 10 MG/ML (10ML CUP) GTB SCH ×2 (12:50→21:29)
[2019-06-14] MEDS: BUDESONIDE (NEB) 0.5MG/2ML AMP HHN SCH ×2 (13:26→19:48)
--- NOTE | 2019-06-14 16:04 | RADRPT ---
Vent Rate: 174 bpm RR Interval: 328 msec [place] Interval: [id number] msec QRS Duration: 110 msec QT Interval: 281 msec QTC Interval: 491 msec P-R-T [place]: [id number] - 203 - 140 degrees Atrial fibrillation with rapid V-rate...A-rate 315 RVH with secondary repolarization abnrm...prom R/R', RAD/MOJGAN & repol abnrm Repolarization abnormality, prob rate related...ST dep, T neg, tachycardia Electronically Signed By: Kwasi Lima
[2019-06-14] MEDS: ATORVASTATIN 20 MG TAB GTB SCH (21:29)
[2019-06-14] MEDS: NORepinephrine 32 MG in DEXTROSE 5% 218 ML IV SCH (23:49)
[2019-06-15] VITALS (96 sets, daily range): BP systolic 71–164; BP diastolic 42–89; PULSE 75–126; RESP 18–27
[2019-06-15] MEDS: INSULIN ASPART [NOVOLOG] 3 ML PEN SC SCH ×2 (00:43→04:35)
[2019-06-15] MEDS: LEVALBUTEROL (HFA) 15 GM INHALER INH SCH ×4 (01:45→19:59)
[2019-06-15] MEDS: IPRATROPIUM (HFA) 12.9 GM INHALER INH SCH ×4 (01:45→19:59)
[2019-06-15] MEDS: FENTAnyl (DRIP) 1000 mcg/100mL 100 ML IV SCH ×2 (05:27→15:21)
[2019-06-15] MEDS: VANCOMYCIN 1.25 GM/NS 250 ML 250 ML IVPB SCH (05:33)
[2019-06-15] MEDS: HYDROCORTISONE 100 MG INJ IV SCH ×3 (05:33→21:33)
[2019-06-15] MEDS: D5W + KCL 20 MEQ 1,000 ML IV SCH ×4 (06:00→23:47)
[2019-06-15] MEDS: SODIUM BICARBONATE (IV ADD) 150 MEQ in DEXTROSE 5%-0.45% NACL 850 ML IV SCH ×2 (07:48→09:05)
[2019-06-15] MEDS: BUDESONIDE (NEB) 0.5MG/2ML AMP HHN SCH ×2 (08:37→19:59)
--- NOTE | 2019-06-15 08:38 | PN ---
Date/Time of Note Date/Time of Note DATE: 06/15/19 TIME: 08:36 Objective Vitals Vital Signs Date Temp Pulse Resp B/P (MAP) Pulse Ox O2 O2 Flow FiO2 Time Delivery Rate 06/15/19 106 27 103/50 88 Mechanical 07:00 (67) Ventilator 06/15/19 100 05:13 06/15/19 98.3 04:00 Intake and Output 06/14/19 06/14/19 06/15/19 1515:00 23:00 07:00 IntakeIntake Total 1713.25 ml 1490.06 ml 1523.03 ml OutputOutput Total 250 ml 760 ml 629 ml BalanceBalance 1463.25 ml 730.06 ml 894.03 ml Results Result Diagram: 06/15/19 0325 06/15/19 0325 Medications Medications Current Medications IV Flush (NS 3 ml) 3 ml PER PROTOCOL IV ; Start 06/10/19 at 12:00 Ondansetron HCl (Zofran Inj) 4 mg Q6H PRN IV NAUSEA/VOMITING; Start 06/10/19 at 12:00 Acetaminophen (Tylenol Tab) 650 mg Q6H PRN PO .PAIN 1-3 OR TEMP Last admin istered on 06/13/19at 15:52; Admin Dose 650 MG; Start 06/10/19 at 12:00 Acetaminophen/ Hydrocodone Bitart ([place] (5/325)) 1 tab Q6H PRN PO .PAIN 4-6; Start 06/10/19 at 12:00 Morphine Sulfate (morphine) 2 mg Q4H PRN IV .PAIN 7-10; Start 06/10/19 at 12:00 Vancomycin HCl (Vanco Iv Per Pharmacy) VANCOMYCIN PER PHARMACY PER PROTOCOL XX ; Start 06/10/19 at 12:30 Amiodarone HCl (Cordarone) 100 mg DAILY GTB Last administered on 06/14/19at 09:53; Admin Dose 100 MG; Start 06/11/19 at 09:00 Atorvastatin Calcium (Lipitor) 20 mg QHS GTB Last administered on 06/14/19at 21:29; Admin Dose 20 MG; Start 06/10/19 at 21:00 Levetiracetam (Keppra Liquid) 500 mg BID GTB Last administered on 06/14/19at 21:29; Admin Dose 500 MG; Start 06/10/19 at 21:00 Olanzapine (Zyprexa) 5 mg DAILY GTB Last administered on 06/14/19 09:51; Admin Dose 5 MG; Start 06/11/19 at 09:00 Polyethylene Glycol (Miralax) 17 gm DAILY GTB Last administered on 06/14/19 09:51; Admin Dose 17 GM; Start 06/11/19 at 09:00 Miscellaneous Information 1 ea NOTE XX ; Start 06/10/19 at 14:00 Glucose (Glutose) 15 gm Q15M PRN PO DECREASED GLUCOSE; Start 06/10/19 at 14:00 Glucose (Glutose) 22.5 gm Q15M PRN PO DECREASED GLUCOSE; Start 06/10/19 at 14:00 Dextrose (D50w Syringe) 25 ml Q15M PRN IV DECREASED GLUCOSE; Start 06/10/19 at 14:00 Dextrose (D50w Syringe) 50 ml Q15M PRN IV DECREASED GLUCOSE; Start 06/10/19 at 14:00 Glucagon (Glucagen) 1 mg Q15M PRN IM DECREASED GLUCOSE; Start 06/10/19 at 14:00 Glucose (Glutose) 15 gm Q15M PRN BUCCAL DECREASED GLUCOSE; Start 06/10/19 at 14:00 Budesonide (Pulmicort (Neb)) 0.5 mg BID RESP THERAPY HHN Last administered on 06/14/19at 19:48; Admin Dose 0.5 MG; Start 06/10/19 at 20:00 IV Flush (NS 10 ml) 10 ml [id number] PRN IV Line Patency; Start 06/10/19 at 16:00 Fluvoxamine Maleate (Fluvoxamine Maleate) 25 mg DAILY GTB Last administered on 06/14/19 09:51; Admin Dose 25 MG; Start 06/11/19 at 09:00 Aspirin (Aspirin) 81 mg DAILY PEG Last administered on 06/14/19 09:51; Admin Dose 81 MG; Start 06/11/19 at 09:00 Heparin Sodium (Porcine) (Heparin (5000 Units/1ml)) 5,000 unit Q8 SC Last adm inistered on 06/14/19at 06:01; Admin Dose 5,000 UNIT; Start 06/11/19 at 14:00; Status Hold Potassium Chloride/Dextrose 1,000 ml @ 80 mls/hr [id number] IV Last administered on 06/11/19 20:52; Admin Dose 80 MLS/HR; Start 06/11/19 at 14:30; Status Hold Ipratropium [place] (Atrovent 0.02% (Neb)) 0.5 mg Q4H RESP THERAPY PRN HHN SHORTNESS OF BREATH; Start 06/12/19 at 10:00 Levalbuterol (Xopenex Neb) 1.25 mg Q4H RESP THERAPY PRN HHN shortness of breath; Start 06/12/19 at 10:00 Fentanyl 100 ml @ 2.5 mls/hr TITRATE IV Last administered on 06/15/19 05:27; Admin Dose 10 MLS/HR; Start 06/12/19 at 10:00 Phenylephrine HCl 80 mg/Dextrose 250 ml @ 18.75 mls/ hr TITRATE IV Last administered on 06/14/19 23:40; Admin Dose 28.12 MLS/HR; Start 06/12/19 at 14:00 Levalbuterol (Xopenex Hfa) 4 puff Q6H RESP THERAPY INH Last administered on 06/15/19 01:45; Admin Dose 4 PUFF; Start 06/12/19 at 20:00 Ipratropium [place] (Atrovent Hfa) 4 puff Q6H RESP THERAPY INH Last administered on 06/15/19 01:45; Admin Dose 4 PUFF; Start 06/12/19 at 20:00 Norepinephrine 32 mg/Dextrose 250 ml @ 0.47 mls/hr TITRATE IV Last administered on 06/14/19 23:49; Admin Dose 5.06 MLS/HR; Start 06/13/19 at 08:00 Meropenem/Sodium Chloride 50 ml @ 100 mls/hr Q12 IVPB Last administered on 06/14/19 21:29; Admin Dose 100 MLS/HR; Start 06/13/19 at 14:00 Sodium Bicarbonate 150 meq/Dextrose/ Sodium Chloride 1,000 ml @ 100 mls/hr Q10H IV Last administered on 06/14/19 21:24; Admin Dose 100 MLS/HR; Start 06/14/19 at 10:00 Hydrocortisone (Solu-Cortef) 100 mg Q8 IV Last administered on 7/21/19at 05:33; Admin Dose 100 MG; Start 06/14/19 at 10:00 Vancomycin/Sodium Chloride 250 ml @ 83.333 mls/ hr Q24H IVPB Last administered on 06/15/19at 05:33; Admin Dose 83.333 MLS/HR; Start 06/15/19 at 06:00 Docusate Sodium (Colace Liquid Cup) 100 mg BID GTB Last administered on 06/14/19at 21:29; Admin Dose 100 MG; Start 06/14/19 at 12:30 Miscellaneous Information (*Rx Drug Level Order Reminder*) VANCOMYCIN TR 06/16 AT 0,500 0500 ONCE XX ; Start 06/16/19 at 05:00; Stop 06/16/19 at 05:01 Potassium Chloride 100 ml @ 50 mls/hr Q2H IVPB ; Start 06/15/19 at 08:30; Stop 06/15/19 at 14:29 Miscellaneous Information (* Miscellaneous Pharmacy Order) Discontinue all previ... PROTOCOL ONCE XX ; Start 06/15/19 at 09:00; Stop 06/15/19 at 09:01; Status UNV Diagnostic Test (Pha) (Accu-Chek) 1 ea Q1H XX ; Start 06/15/19 at 09:00; Status UNV Insulin Human Regular 100 unit/ Sodium Chloride 100 ml @ 0 mls/hr PER PROTOCOL IV ; Start 06/15/19 at 09:00; Status UNV Miscellaneous Information (* Miscellaneous Pharmacy Order) Treatment of Hypoglycemia: 1.BG 51... Per protocol XX ; Start 06/15/19 at 09:00; Status UNV Dextrose (D50w Syringe) 25 ml Q15M PRN IV .DECREASED GLUCOSE; Start 06/15/19 at 09:00; Status UNV Dextrose (D50w Syringe) 50 ml Q15M PRN IV .DECREASED GLUCOSE; Start 06/15/19 at 09:00; Status UNV VTE Prophylaxis Risk score (from Nsg)>0 risk: 13 SCD applied (from Nsg): No SCD contraindication: other Lines/Catheters IV Catheter Type: Dorsey in Place: Yes Cont'd dorsey catheter reason: terminal illness/intractable pain Assessment/Plan Hospital Course Subjective Patient still intubated, resp status has mildly stabilized with new vent settings. Objective Physical exam General: Patient is intubated Mentation: Patient is intubated and sedated Head: Normocephalic atraumatic Eyes: EOMI, pupils reactive to light Neck: Supple, nontender, midline Respiratory: Coarse to auscultation bilaterally Cardiovascular: Regular rate, no obvious murmurs Gastrointestinal: non-tender to palpation, bowel sounds heard. Neurological: Moves all extremities spontaneously to noxious stimuli Skin: No new skin lesions, PEG tube site present Assessment and plan Multifocal pneumonia -Broad-spectrum antibiotic to cover aspiration -Infectious disease consulted -Breathing treatments as needed -Pulmonology also on board Acute hypoxic respiratory failure, ARDS secondary to sepsis, worsening -Likely secondary to above pneumonia, picture is consistent with ARDS per pulmonology -Pulmonology on board -Continue IV antibiotic -Currently intubated, pulmonology to extubate when able Septic shock versus severe sepsis -Pressors as needed, titrate off pressors when able, patient is now on 2 pressors -IV antibiotic -Pancultured Atrial fibrillation with RVR -Cardiology on board -Rate controlled for now, continue amiodarone Non-ST elevated IN -Very mild elevation -Dr. Jimenez, cardiology has been consulted -Troponin stabilized -Aspirin, statin -Cardiology doubts true thrombotic IN Electrolyte derangement with hypernatremia -Fluids adjusted by nephrology and pulmonology -Resolving hypernatremia Hypocalcemia -Patient's calcium continues to trickle down, nephrology recommend agents appreciated -With albumin correction patient's calcium is now below 8, will supplement calcium Thrombocytopenia -Very likely due to septic shock -Fibrinogen is elevated, unlikely DIC -Hold heparin for now Chronic dysphasia -Patient has PEG tube -Monitor -Continue tube feeds as tolerated Hyperglycemia with diabetes mellitus -Insulin sliding scale for now, patient became hypoglycemic with insulin drip. -Continue fluids as necessary Chronic encephalopathy -CT of the brain initially showed alarming findings however there appears to be a mixup with patient's name, patient's actual name is Trey Roberts, [id number]. Neurosurgeon was initially consulted for possible brain bleed and other findings however when comparing to the patient's actual chart in 2013, neurosurgeon reviewed the CT and MRI and found a similar findings with no acute emergent change. -Monitor closely, patient appears to be at baseline Hypertension -Hold hypertensive medications for now due to hypotension dyslipidemia -Continue home meds Mood disorder -Continue home meds Chronic kidney disease -Very mild, nephrology on board Failure to thrive -We will have discussion with patient's family on goals of care Disposition -Titrate off pressors when able, extubate when able -Continue ICU care -Spoke with patient's son, patient has extremely poor prognosis at this time, patient's quality of life was likely very low even before admission as she was near completely encephalopathic secondary to dementia with no meaningful conversation ability, discussed with the sons (easton/sylvia) regarding DNR status, patient's 2 sons are on board with DNR however there sister wants full code, social work to help manage. -Over 40 minutes of critical care time was spent on this evaluation MALINI GOMEZ Jun 15, 2019 08:38
[2019-06-15] MEDS ORDERED: DEXTROSE 50% 50 ML SYRINGE IV PRN ×2 (09:00)
[2019-06-15] MEDS: DOCUSATE SODIUM 10 MG/ML (10ML CUP) GTB SCH ×2 (09:04→20:37)
[2019-06-15] MEDS: POLYETHYLENE GLYCOL 17 GM PACKET GTB SCH (09:04)
[2019-06-15] MEDS: FLUVOXAMINE MALEATE 25 MG TABLET GTB SCH (09:04)
[2019-06-15] MEDS: ASPIRIN 81 MG TAB PEG SCH (09:04)
[2019-06-15] MEDS: OLANZAPINE 5 MG TAB GTB SCH (09:04)
[2019-06-15] MEDS: LEVETIRACETAM (100 MG/ML) 5ML CUP GTB SCH ×2 (09:04→20:37)
[2019-06-15] MEDS: POTASSIUM CHLORIDE 100 ML IVPB SCH ×3 (09:05→12:23)
[2019-06-15] MEDS: AMIODARONE 200 MG TAB GTB SCH (09:05)
[2019-06-15] MEDS: MEROPENEM 1 GM/50ML(PMX) 50 ML IVPB SCH ×2 (09:05→20:37)
[2019-06-15] MEDS: BALSAM PERU/CASTOR OIL 60 GM TUBE TOP SCH (09:06)
[2019-06-15] MEDS: PHENYLephrine 80 MG in DEXTROSE 5% 242 ML IV SCH ×2 (09:12→18:39)
[2019-06-15] MEDS: ACCU-CHEK XX SCH ×15 (09:27→23:43)
[2019-06-15] MEDS ORDERED: INSULIN HUMAN REGULAR 100 UNIT in SOD CHLORIDE 0.9% 99 ML IV SCH (09:30)
[2019-06-15] MEDS ORDERED: CALCIUM GLUCONATE 10% 1 GM in DEXTROSE 5% 100 ML IVPB ONE (09:30)
--- NOTE | 2019-06-15 09:53 | CONS ---
Consult Date/Type/Reason Admit Date/Time Jun 10, 2019 at 12:38 Initial Consult Date 06/11/19 Type of Consult Pulmonary Requesting Provider: MALINI GOMEZ Date/Time of Note DATE: 06/15/19 TIME: 09:51 Subjective More alert this morning however continues multiple vasopressors still requiring 100% FiO2 with a PEEP of 10. Chest x-ray demonstrates ARDS. Objective Vital Signs Date Temp Pulse Resp B/P (MAP) Pulse Ox O2 O2 Flow FiO2 Time Delivery Rate 06/15/19 100 08:00 06/15/19 27 103/50 88 Mechanical 07:00 (67) Ventilator 06/15/19 100 05:13 06/15/19 98.3 04:00 Intake and Output 06/14/19 06/14/19 06/15/19 1515:00 23:00 07:00 IntakeIntake Total 1713.25 ml 1490.06 ml 1523.03 ml OutputOutput Total 250 ml 760 ml 629 ml BalanceBalance 1463.25 ml 730.06 ml 894.03 ml Exam GENERAL: Elderly lady orally intubated on mechanical ventilation VITAL SIGNS: per chart NECK: Supple. No JVD or lymphadenopathy. CARDIAC EXAM: S1, S2. No added sounds or murmurs. CHEST: Diminished air entry bilaterally with rales ABDOMEN: Soft, nontender. No guarding or rebound. EXTREMITIES: No cyanosis, clubbing edema +2 NEUROLOGIC: Generalized weakness. Vent Setting Ventilator Support Mode: AC Fraction of Inspired Oxygen pe: 100 Positive End Expiratory Pressu: 10.0 Results/Medications Result Diagram: 06/15/19 0325 06/15/19 0325 Results 24 hrs Laboratory Tests Test 06/14/19 09:57 06/14/19 10:25 06/14/19 12:44 06/14/19 13:00 Bedside Glucose 139 206 Platelet Count 67 L Prothrombin Time 15.9 H Prothrombin Time 1.2 Ratio INR International 1.26 Normalized Ratio Activated 47.1 H Partial Thrombopl ast Time Thrombin Time 19.5 H Fibrinogen 651.0 H D-Dimer 3682.04 H D-Dimer Comment Blood Gas Blood arterial Specimen Source Arterial Blood 06/14/2019 2:30:1 Date Drawn 4 PM Arterial Blood pH 7.482 H (Temp corrected) Arterial Blood 27.7 L pCO2 (Temp correct) Arterial Blood 164.9 H pO2 (Temp corrected) Arterial Blood 20.3 L HCO3 Arterial Blood -2.1 Base Excess Arterial Blood 99.2 Oxygen Saturation James Test ACCEPTAB Arterial Blood Right Radial Gas Puncture Site Arterial 0.3 Blood Carboxyhemo globin Arterial Blood 0.3 Methemoglobin Blood Gas A-a O2 520.4 H Differential Oxyhemoglobin 98.6 Percent Blood Gas 37.0 Temperature Blood Gas 26.0 Respiration Rate Blood Gas Actual 26 Respiration Rate Blood Gas VENT - AC Modality FiO2 100.0 Blood Gas Tidal 550.0 Volume Blood Gas Low 10.0 PEEP Setting Blood Gas JENNIE KOHLI Notified Whom Blood Gas 06/14/2019 2:44:5 Notified Time 2 PM Test 06/14/19 18:25 06/14/19 20:53 06/15/19 00:40 06/15/19 03:25 Bedside Glucose 328 H 288 H 265 H White Blood Count 16.4 H Red Blood Count 3.24 L Hemoglobin 9.7 L Hematocrit 30.7 L Mean Corpuscular 94.8 Volume Mean Corpuscular 29.9 Hemoglobin Mean Corpuscular 31.6 L Hemoglobin Concen t Red Cell 14.6 H Distribution Width Platelet Count 73 L Mean Platelet 12.4 H Volume Immature 0.600 H Granulocytes % Neutrophils % 94.6 H Segmented 65 Neutrophils % (Manual) Band Neutrophils 29 H % (Manual) Lymphocytes % 1.7 L Lymphocytes % 1 L (Manual) Monocytes % 2.7 Monocytes % 5 (Manual) Eosinophils % 0.0 Basophils % 0.4 Nucleated Red 0.2 H Blood Cells % Immature 0.100 H Granulocytes # Neutrophils # 15.5 H Neutrophils # 11.4 H (Manual) Band Neutrophils 4.7 H # Lymphocytes 0.1 L (Manual) Lymphocytes # 0.3 L Monocytes # 0.5 Monocytes # 0.8 (Manual) Eosinophils # 0.0 Basophils # 0.1 Nucleated Red 0.0 Blood Cells # Platelet Estimate DECREASED Poikilocytosis 1+ Anisocytosis 1+ Sodium Level 141 Potassium Level 3.3 L Chloride Level 103 Carbon Dioxide 30 Level Anion Gap 8 Blood Urea 42 H Nitrogen Creatinine 0.99 Est Glomerular Filtrat Rate mL/min Glucose Level 239 H Calcium Level 6.4 L Magnesium Level 2.0 Total Bilirubin 0.3 Direct Bilirubin 0.00 Indirect 0.3 Bilirubin Aspartate Amino 35 Transf (AST/SGOT) Alanine 24 Aminotransferase (ALT/SGPT) Alkaline 147 H Phosphatase Total Protein 4.9 L Albumin 2.1 L Globulin 2.80 Albumin/Globulin 0.75 Ratio Test 06/15/19 04:31 06/15/19 09:21 Bedside Glucose 240 H 171 Medications Current Medications IV Flush (NS 3 ml) 3 ml PER PROTOCOL IV ; Start 06/10/19 at 12:00 Ondansetron HCl (Zofran Inj) 4 mg Q6H PRN IV NAUSEA/VOMITING; Start 06/10/19 at 12:00 Acetaminophen (Tylenol Tab) 650 mg Q6H PRN PO .PAIN 1-3 OR TEMP Last administered on 06/13/19at 15:52; Admin Dose 650 MG; Start 06/10/19 at 12:00 Acetaminophen/ Hydrocodone Bitart ([place] (5/325)) 1 tab Q6H PRN PO .PAIN 4-6; Start 06/10/19 at 12:00 Morphine Sulfate (morphine) 2 mg Q4H PRN IV .PAIN 7-10; Start 06/10/19 at 12:00 Vancomycin HCl (Vanco Iv Per Pharmacy) VANCOMYCIN PER PHARMACY PER PROTOCOL XX ; Start 06/10/19 at 12:30 Amiodarone HCl (Cordarone) 100 mg DAILY GTB Last administered on 06/15/19at 09:05; Admin Dose 100 MG; Start 06/11/19 at 09:00 Atorvastatin Calcium (Lipitor) 20 mg QHS GTB Last administered on 06/14/19at 2 1:29; Admin Dose 20 MG; Start 06/10/19 at 21:00 Levetiracetam (Keppra Liquid) 500 mg BID GTB Last administered on 06/15/19at 09:04; Admin Dose 500 MG; Start 06/10/19 at 21:00 Olanzapine (Zyprexa) 5 mg DAILY GTB Last administered on 06/15/19 09:04; Admin Dose 5 MG; Start 06/11/19 at 09:00 Polyethylene Glycol (Miralax) 17 gm DAILY GTB Last administered on 06/15/19at 09:04; Admin Dose 17 GM; Start 06/11/19 at 09:00 Miscellaneous Information 1 ea NOTE XX ; Start 06/10/19 at 14:00 Glucose (Glutose) 15 gm Q15M PRN PO DECREASED GLUCOSE; Start 06/10/19 at 14:00 Glucose (Glutose) 22.5 gm Q15M PRN PO DECREASED GLUCOSE; Start 06/10/19 at 14:00 Dextrose (D50w Syringe) 25 ml Q15M PRN IV DECREASED GLUCOSE; Start 06/10/19 at 14:00 Dextrose (D50w Syringe) 50 ml Q15M PRN IV DECREASED GLUCOSE; Start 06/10/19 at 14:00 Glucagon (Glucagen) 1 mg Q15M PRN IM DECREASED GLUCOSE; Start 06/10/19 at 14:00 Glucose (Glutose) 15 gm Q15M PRN BUCCAL DECREASED GLUCOSE; Start 06/10/19 at 14:00 Budesonide (Pulmicort (Neb)) 0.5 mg BID RESP THERAPY HHN Last administered on 06/15/19at 08:37; Admin Dose 0.5 MG; Start 06/10/19 at 20:00 IV Flush (NS 10 ml) 10 ml [id number] PRN IV Line Patency; Start 06/10/19 at 16:00 Fluvoxamine Maleate (Fluvoxamine Maleate) 25 mg DAILY GTB Last administered on 06/15/19at 09:04; Admin Dose 25 MG; Start 06/11/19 at 09:00 Aspirin (Aspirin) 81 mg DAILY PEG Last administered on 06/15/19at 09:04; Admin Dose 81 MG; Start 06/11/19 at 09:00 Heparin Sodium (Porcine) (Heparin (5000 Units/1ml)) 5,000 unit Q8 SC Last administered on 06/14/19at 06:01; Admin Dose 5,000 UNIT; Start 06/11/19 at 14:00; Status Hold Potassium Chloride/Dextrose 1,000 ml @ 80 mls/hr [id number] IV Last administered on 06/11/19at 20:52; Admin Dose 80 MLS/HR; Start 06/11/19 at 14:30; Status Hold Ipratropium [place] (Atrovent 0.02% (Neb)) 0.5 mg Q4H RESP THERAPY PRN HHN SHORTNESS OF BREATH; Start 06/12/19 at 10:00 Levalbuterol (Xopenex Neb) 1.25 mg Q4H RESP THERAPY PRN HHN shortness of breath; Start 06/12/19 at 10:00 Fentanyl 100 ml @ 2.5 mls/hr TITRATE IV Last administered on 06/15/19 05:27; Admin Dose 10 MLS/HR; Start 06/12/19 at 10:00 Phenylephrine HCl 80 mg/Dextrose 250 ml @ 18.75 mls/ hr TITRATE IV Last administered on 06/15/19 09:12; Admin Dose 28.13 MLS/HR; Start 06/12/19 at 14:00 Levalbuterol (Xopenex Hfa) 4 puff Q6H RESP THERAPY INH Last administered on 06/15/19 08:37; Admin Dose 4 PUFF; Start 06/12/19 at 20:00 Ipratropium [place] (Atrovent Hfa) 4 puff Q6H RESP THERAPY INH Last administered on 06/15/19 08:37; Admin Dose 4 PUFF; Start 06/12/19 at 20:00 Norepinephrine 32 mg/Dextrose 250 ml @ 0.47 mls/hr TITRATE IV Last administered on 06/14/19 23:49; Admin Dose 5.06 MLS/HR; Start 06/13/19 at 08:00 Meropenem/Sodium Chloride 50 ml @ 100 mls/hr Q12 IVPB Last administered on 06/15/19 09:05; Admin Dose 100 MLS/HR; Start 06/13/19 at 14:00 Sodium Bicarbonate 150 meq/Dextrose/ Sodium Chloride 1,000 ml @ 100 mls/hr Q10H IV Last administered on 06/15/19 09:05; Admin Dose 100 MLS/HR; Start 06/14/19 at 10:00 Hydrocortisone (Solu-Cortef) 100 mg Q8 IV Last administered on 06/15/19 05:33; Admin Dose 100 MG; Start 06/14/19 at 10:00 Vancomycin/Sodium Chloride 250 ml @ 83.333 mls/ hr Q24H IVPB Last administered on 06/15/19 05:33; Admin Dose 83.333 MLS/HR; Start 06/15/19 at 06:00 Docusate Sodium (Colace Liquid Cup) 100 mg BID GTB Last administered on 06/15/19 09:04; Admin Dose 100 MG; Start 06/14/19 at 12:30 Miscellaneous Information (*Rx Drug Level Order Reminder*) VANCOMYCIN TR 06/16 AT 0,500 0500 ONCE XX ; Start 06/16/19 at 05:00; Stop 06/16/19 at 05:01 Potassium Chloride 100 ml @ 50 mls/hr Q2H IVPB Last administered on 06/15/19at 09:05; Admin Dose 50 MLS/HR; Start 06/15/19 at 08:30; Stop 06/15/19 at 14:29 Diagnostic Test (Pha) (Accu-Chek) 1 ea Q1H XX Last administered on 06/15/19at 09:27; Admin Dose 1 EA; Start 06/15/19 at 09:00 Insulin Human Regular 100 unit/ Sodium Chloride 100 ml @ 0 mls/hr PER PROTOCOL IV Last administered on 06/15/19at 09:27; Admin Dose 0 MLS/HR; Start 06/15/19 at 09:30 Miscellaneous Information (* Miscellaneous Pharmacy Order) Treatment of Hypoglycemia: 1.BG 51... Per protocol XX ; Start 06/15/19 at 09:00 Dextrose (D50w Syringe) 25 ml Q15M PRN IV .DECREASED GLUCOSE; Start 06/15/19 at 09:00 Dextrose (D50w Syringe) 50 ml Q15M PRN IV .DECREASED GLUCOSE; Start 06/15/19 at 09:00 Calcium Gluconate 1 gm/Dextrose 110 ml @ 110 mls/hr ONCE ONCE IVPB Last administered on 06/15/19at 09:15; Admin Dose 110 MLS/HR; Start 06/15/19 at 09:30; Stop 06/15/19 at 10:29 Potassium Chloride 50 ml @ 50 mls/hr K PROTOCOL PRN IVPB PENDING LAB VALUE; Start 06/15/19 at 09:00 Assessment/Plan Hospital Course (Demo Recall) Assessment 1. Acute hypoxemic and hypercapnic respiratory failure radiographic findings consistent with ARDS. 2. Status post respiratory metabolic acidosis. 3. Refractory septic shock likely secondary to pneumonia 4. Encephalopathy toxic metabolic 5. Thrombocytopenia possible DIC 6. Dysphagia secondary to above Plan 1. Continue mechanical ventilation increase minute ventilation for hypercapnia 2. Increased sedation for agitation 3. Continue broad-spectrum antibiotic coverage 4. Empiric steroid trial for refractory shock 5. Tube feeding if tolerated, stop bicarbonate drip. 6. Primary care team contacted next of kin they wish to continue all aggressive measures however understand that prognosis is very poor and patient may not survive this admission. Critical care time 40 minutes LAVERNE HYDE MD, [facility] Jun 15, 2019 09:53
--- NOTE | 2019-06-15 11:05 | CONS ---
Assessment/Plan Assessment/Plan Hospital Course (Demo Recall) ID PROGRESS NOTE CURRENT ABX: DAY # 6 =>Vanco IV + Merrem s/p zosyn 06/15/19 0325 06/15/19 0325 24H INTERVAL SUMMARY * SIRS w/ low grade temps improved, WBC slow downtrend -- sputum cx (+) STAPH AUREUS == final pending * Remains septic with ARDS on mechanical vent w/intermittent agitation * INDWELLINGS: Endotracheal tube, PEG, Dial, PICC line placed on 06/10/2019. DIAGNOSTIC IMAGING * 06/14/19 CXR: Increased bilateral interstitial and alveolar infiltrates concerning for edema, multifocal pneumonia, or pneumonitis. Small left pleural effusion increased. MICRO * 06/12/19 RESPIRATORY CULTURE RESPIRATORY CULTURE Preliminary Organism 1 MANINDER ALBICANS QUANTITY SCANT GROWTH Organism 2 STAPHYLOCOCCUS AUREUS QUANTITY SCANT GROWTH * 06/10/19 BCx (-) * 06/10/19 URINE CULTURE Final Organism 1 K PNEUMO ESBL COLONY COUNT >100,000 CFU/ml . MULTI DRUG RESISTANT ORGANISM KLEB PNEUM KLEB PNEUM M.I.C. RX M.I.C. RX --------- --- --------- --- AMIKACIN 16 S CEFAZOLIN R CEFEPIME R CEFOTAXIME R CIPROFLOXACIN >=4 R GENTAMICIN >=16 R LEVOFLOXACIN >=8 R MEROPENEM 0.38 S NITROFURANTOIN 256 R TOBRAMYCIN >=16 R TRIMETHOPRIM/SULFAMETHOXAZOLE >=320 R PIPERACILLIN/TAZOBACTAM >=128 R PHYSICAL EXAMINATION: GENERAL: VSS, NAD HEENT: AT, NC, orally intubated NECK: Supple, CHEST: Rise symmetrical HEART: Pulse RRR ABDOMEN: Benign EXTREMITIES: Warm, dry SKIN: No rash, no diaphoresis ID ASSESSMENT 84 yo F admit with: 1. Severe sepsis with shock. 2. Acute respiratory failure, possibly aspiration pneumonia. 3. Urinary tract infection with culture grew Klebsiella extended-spectrum beta-lactamase. 4. History of brain mass. 5. Hoj-BL-zwaicusmg myocardial infarction. 6. Atrial fibrillation status post rapid ventricular response. 7. Diabetes. (-)MRSA Nares ABX ALLERGIES: KNDA INVASIVES: ETT, PEG, Dial, PICC line placed on 06/10/2019. CURRENT ABX: DAY # 6 =>Vanco IV + Merrem s/p zosyn ID RECOMMENDATIONS/PLAN: 1. Continue ABX for ARDS -- sputum cx growing STAPH AUREUS == final pending * De-Escalate ABX once final sputum cx results available . Consultation Date/Type/Reason Admit Date/Time Jun 10, 2019 at 12:38 Initial Consult Date 06/11/19 Requesting Provider: MALINI GOMEZ Date/Time of Note DATE: 06/15/19 TIME: 11:02 Exam/Review of Systems Exam Vitals Vital Signs Date Temp Pulse Resp B/P (MAP) Pulse Ox O2 O2 Flow FiO2 Time Delivery Rate 06/15/19 100 08:00 06/15/19 27 103/50 88 Mechanical 07:00 (67) Ventilator 06/15/19 100 05:13 06/15/19 98.3 04:00 Intake and Output 06/14/19 06/14/19 06/15/19 1515:00 23:00 07:00 IntakeIntake Total 1713.25 ml 1490.06 ml 1523.03 ml OutputOutput Total 250 ml 760 ml 629 ml BalanceBalance 1463.25 ml 730.06 ml 894.03 ml Results Result Diagram: 06/15/19 0325 06/15/19 0325 Results 24hrs Laboratory Tests Test 06/14/19 12:44 06/14/19 13:00 06/14/19 18:25 06/14/19 20:53 Bedside Glucose 206 328 H 288 H Blood Gas Blood arterial Specimen Source Arterial Blood 06/14/2019 2:30: Date Drawn 14 PM Arterial Blood 7.482 H pH (Temp corrected) Arterial Blood 27.7 L pCO2 (Temp correct) Arterial Blood 164.9 H pO2 (Temp corrected) Arterial Blood 20.3 L HCO3 Arterial Blood -2.1 Base Excess Arterial Blood 99.2 Oxygen Saturatio n James Test ACCEPTAB Arterial Blood Right Radial Gas Puncture Site Arterial 0.3 Blood Carboxyhem oglobin Arterial Blood 0.3 Methemoglobin Blood Gas A-a O2 520.4 H Differential Oxyhemoglobin 98.6 Percent Blood Gas 37.0 Temperature Blood Gas 26.0 Respiration Rate Blood Gas Actual 26 Respiration Rate Blood Gas VENT - AC Modality FiO2 100.0 Blood Gas Tidal 550.0 Volume Blood Gas Low 10.0 PEEP Setting Blood Gas JENNIE KOHLI Notified Whom Blood Gas 06/14/2019 2:44: Notified Time 52 PM Test 06/15/19 00:40 06/15/19 03:25 06/15/19 04:31 06/15/19 07:00 Bedside Glucose 265 H 240 H White Blood 16.4 H Count Red Blood Count 3.24 L Hemoglobin 9.7 L Hematocrit 30.7 L Mean Corpuscular 94.8 Volume Mean Corpuscular 29.9 Hemoglobin Mean Corpuscular 31.6 L Hemoglobin Christina nt Red Cell 14.6 H Distribution Width Platelet Count 73 L Mean Platelet 12.4 H Volume Immature 0.600 H Granulocytes % Neutrophils % 94.6 H Segmented 65 Neutrophils % (Manual) Band Neutrophils 29 H % (Manual) Lymphocytes % 1.7 L Lymphocytes % 1 L (Manual) Monocytes % 2.7 Monocytes % 5 (Manual) Eosinophils % 0.0 Basophils % 0.4 Nucleated Red 0.2 H Blood Cells % Immature 0.100 H Granulocytes # Neutrophils # 15.5 H Neutrophils # 11.4 H (Manual) Band Neutrophils 4.7 H # Lymphocytes 0.1 L (Manual) Lymphocytes # 0.3 L Monocytes # 0.5 Monocytes # 0.8 (Manual) Eosinophils # 0.0 Basophils # 0.1 Nucleated Red 0.0 Blood Cells # Platelet DECREASED Estimate Poikilocytosis 1+ Anisocytosis 1+ Sodium Level 141 Potassium Level 3.3 L Chloride Level 103 Carbon Dioxide 30 Level Anion Gap 8 Blood Urea 42 H Nitrogen Creatinine 0.99 Est Glomerular Filtrat Rate mL/min Glucose Level 239 H Calcium Level 6.4 L Magnesium Level 2.0 Total Bilirubin 0.3 Direct Bilirubin 0.00 Indirect 0.3 Bilirubin Aspartate Amino 35 Transf (AST/SGOT ) Alanine 24 Aminotransferase (ALT/SGPT) Alkaline 147 H Phosphatase Total Protein 4.9 L Albumin 2.1 L Globulin 2.80 Albumin/Globulin 0.75 Ratio Blood Gas Blood arterial Specimen Source Arterial Blood 06/15/2019 9:35: Date Drawn 56 AM Arterial Blood 7.467 H pH (Temp corrected) Arterial Blood 45.6 H pCO2 (Temp correct) Arterial Blood 58.0 L pO2 (Temp corrected) Arterial Blood 32.2 H HCO3 Arterial Blood 7.6 H Base Excess Arterial Blood 90.8 L Oxygen Saturatio n James Test ACCEPTAB Arterial Blood Right Radial Gas Puncture Site Arterial 0.3 Blood Carboxyhem oglobin Arterial Blood 0.2 Methemoglobin Blood Gas A-a O2 609.4 H Differential Oxyhemoglobin 90.3 L Percent Blood Gas 37.0 Temperature Blood Gas 20.0 Respiration Rate Blood Gas Actual 21 Respiration Rate Blood Gas VENT - AC Modality FiO2 100.0 Blood Gas Tidal 550.0 Volume Blood Gas Low 10.0 PEEP Setting Blood Gas CiriloJENNIE GARDNER Notified Whom Blood Gas 06/15/2019 10:00 Notified Time :18 AM Test 06/15/19 09:21 06/15/19 10:07 Bedside Glucose 171 194 Medications Medication Current Medications IV Flush (NS 3 ml) 3 ml PER PROTOCOL IV ; Start 06/10/19 at 12:00 Ondansetron HCl (Zofran Inj) 4 mg Q6H PRN IV NAUSEA/VOMITING; Start 06/10/19 at 12:00 Acetaminophen (Tylenol Tab) 650 mg Q6H PRN PO .PAIN 1-3 OR TEMP Last adminis tered on 06/13/19at 15:52; Admin Dose 650 MG; Start 06/10/19 at 12:00 Acetaminophen/ Hydrocodone Bitart ([place] (5/325)) 1 tab Q6H PRN PO .PAIN 4-6; Start 06/10/19 at 12:00 Morphine Sulfate (morphine) 2 mg Q4H PRN IV .PAIN 7-10; Start 06/10/19 at 12:00 Vancomycin HCl (Vanco Iv Per Pharmacy) VANCOMYCIN PER PHARMACY PER PROTOCOL XX ; Start 06/10/19 at 12:30 Amiodarone HCl (Cordarone) 100 mg DAILY GTB Last administered on 06/15/19at 09:05; Admin Dose 100 MG; Start 06/11/19 at 09:00 Atorvastatin Calcium (Lipitor) 20 mg QHS GTB Last administered on 06/14/19at 21:29; Admin Dose 20 MG; Start 06/10/19 at 21:00 Levetiracetam (Keppra Liquid) 500 mg BID GTB Last administered on 06/15/19at 09:04; Admin Dose 500 MG; Start 06/10/19 at 21:00 Olanzapine (Zyprexa) 5 mg DAILY GTB Last administered on 06/15/19at 09:04; Admin Dose 5 MG; Start 06/11/19 at 09:00 Polyethylene Glycol (Miralax) 17 gm DAILY GTB Last administered on 06/15/19at 09:04; Admin Dose 17 GM; Start 06/11/19 at 09:00 Miscellaneous Information 1 ea NOTE XX ; Start 06/10/19 at 14:00 Glucose (Glutose) 15 gm Q15M PRN PO DECREASED GLUCOSE; Start 06/10/19 at 14:00 Glucose (Glutose) 22.5 gm Q15M PRN PO DECREASED GLUCOSE; Start 06/10/19 at 14:00 Dextrose (D50w Syringe) 25 ml Q15M PRN IV DECREASED GLUCOSE; Start 06/10/19 at 14:00 Dextrose (D50w Syringe) 50 ml Q15M PRN IV DECREASED GLUCOSE; Start 06/10/19 at 14:00 Glucagon (Glucagen) 1 mg Q15M PRN IM DECREASED GLUCOSE; Start 06/10/19 at 14:00 Glucose (Glutose) 15 gm Q15M PRN BUCCAL DECREASED GLUCOSE; Start 06/10/19 at 14:00 Budesonide (Pulmicort (Neb)) 0.5 mg BID RESP THERAPY HHN Last administered on 06/15/19at 08:37; Admin Dose 0.5 MG; Start 06/10/19 at 20:00 IV Flush (NS 10 ml) 10 ml [id number] PRN IV Line Patency; Start 06/10/19 at 16:00 Fluvoxamine Maleate (Fluvoxamine Maleate) 25 mg DAILY GTB Last administered on 06/15/19at 09:04; Admin Dose 25 MG; Start 06/11/19 at 09:00 Aspirin (Aspirin) 81 mg DAILY PEG Last administered on 06/15/19at 09:04; Admin Dose 81 MG; Start 06/11/19 at 09:00 Heparin Sodium (Porcine) (Heparin (5000 Units/1ml)) 5,000 unit Q8 SC Last administered on 06/14/19at 06:01; Admin Dose 5,000 UNIT; Start 06/11/19 at 14:00; Status Hold Potassium Chloride/Dextrose 1,000 ml @ 80 mls/hr [id number] IV Last administered on 06/15/19at 10:53; Admin Dose 80 MLS/HR; Start 06/11/19 at 14:30 Ipratropium [place] (Atrovent 0.02% (Neb)) 0.5 mg Q4H RESP THERAPY PRN HHN SHORTNESS OF BREATH; Start 06/12/19 at 10:00 Levalbuterol (Xopenex Neb) 1.25 mg Q4H RESP THERAPY PRN HHN shortness of breath; Start 06/12/19 at 10:00 Fentanyl 100 ml @ 2.5 mls/hr TITRATE IV Last administered on 06/15/19 05:27; Admin Dose 10 MLS/HR; Start 06/12/19 at 10:00 Phenylephrine HCl 80 mg/Dextrose 250 ml @ 18.75 mls/ hr TITRATE IV Last administered on 06/15/19 09:12; Admin Dose 28.13 MLS/HR; Start 06/12/19 at 14:00 Levalbuterol (Xopenex Hfa) 4 puff Q6H RESP THERAPY INH Last administered on 06/15/19 08:37; Admin Dose 4 PUFF; Start 06/12/19 at 20:00 Ipratropium [place] (Atrovent Hfa) 4 puff Q6H RESP THERAPY INH Last administered on 06/15/19 08:37; Admin Dose 4 PUFF; Start 06/12/19 at 20:00 Norepinephrine 32 mg/Dextrose 250 ml @ 0.47 mls/hr TITRATE IV Last adm inistered on 06/14/19 23:49; Admin Dose 5.06 MLS/HR; Start 06/13/19 at 08:00 Meropenem/Sodium Chloride 50 ml @ 100 mls/hr Q12 IVPB Last administered on 06/15/19 09:05; Admin Dose 100 MLS/HR; Start 06/13/19 at 14:00 Hydrocortisone (Solu-Cortef) 100 mg Q8 IV Last administered on 06/15/19 05:33; Admin Dose 100 MG; Start 06/14/19 at 10:00 Vancomycin/Sodium Chloride 250 ml @ 83.333 mls/ hr Q24H IVPB Last administered on 06/15/19 05:33; Admin Dose 83.333 MLS/HR; Start 06/15/19 at 06:00 Docusate Sodium (Colace Liquid Cup) 100 mg BID GTB Last administered on 06/15/19 09:04; Admin Dose 100 MG; Start 06/14/19 at 12:30 Miscellaneous Information (*Rx Drug Level Order Reminder*) VANCOMYCIN TR 06/16 AT 0,500 0500 ONCE XX ; Start 06/16/19 at 05:00; Stop 06/16/19 at 05:01 Potassium Chloride 100 ml @ 50 mls/hr Q2H IVPB Last administered on 06/15/19at 10:53; Admin Dose 50 MLS/HR; Start 06/15/19 at 08:30; Stop 06/15/19 at 14:29 Diagnostic Test (Pha) (Accu-Chek) 1 ea Q1H XX Last administered on 06/15/19at 10:10; Admin Dose 1 EA; Start 06/15/19 at 09:00 Insulin Human Regular 100 unit/ Sodium Chloride 100 ml @ 0 mls/hr PER PROTOCOL IV Last administered on 06/15/19at 09:27; Admin Dose 0 MLS/HR; Start 06/15/19 at 09:30 Miscellaneous Information (* Miscellaneous Pharmacy Order) Treatment of H ypoglycemia: 1.BG 51... Per protocol XX ; Start 06/15/19 at 09:00 Dextrose (D50w Syringe) 25 ml Q15M PRN IV .DECREASED GLUCOSE; Start 06/15/19 at 09:00 Dextrose (D50w Syringe) 50 ml Q15M PRN IV .DECREASED GLUCOSE; Start 06/15/19 at 09:00 Potassium Chloride 50 ml @ 50 mls/hr K PROTOCOL PRN IVPB PENDING LAB VALUE; Start 06/15/19 at 09:00 ELIAS BRINK NP Jun 15, 2019 11:05
[2019-06-15] MEDS: ATORVASTATIN 20 MG TAB GTB SCH (20:37)
--- NOTE | 2019-06-15 20:46 | CONS ---
Assessment/Plan Assessment/Plan Assessment/Plan (Daily) 1. acute Hypernatremia due to severe dehydration - Improving 2. acute Hyperkalemia due to FLOYD - Resolved 3. acute kidney injury on CKD III due to ATN from sepsis and Prerenal azotemia 4 . Septic shock due to multifocal PNA 5. Acute hypoxic respiratory failure due to PNA and Septic shock - Failed BIPAP- Intubated on 06/12/19 6. H/O severe dementia 7. H/O HTN 8. H/O HL 9. SNF resident 10. acute on chronic encephalopathy 11 h/o Dysphagia S/p G tube placement 12. Hypocalcemia with Ca 6.7 Plan: BUN/Cr 43/0.89 , K normal today, , Conitnue IVF D5w with KCL 20mEQ at 80 cc/hr Abdomen was disteded, X ray KUB negative for obstruciotn, TF was held today currenlty on IV abx meropenem , Renally dose all abx and monitor electrolytes Ventilator Management as per pulmonary Calcium gluconate 1 gram IV x 1 for hypocalcemia, will order ionised Ca and Albumin level with AM labs Full Code, as per Son will follow up Consultation Date/Type/Reason Admit Date/Time Jun 10, 2019 at 12:38 Initial Consult Date 06/11/19 Type of Consult NEPHROLOGY Requesting Provider: MALINI GOMEZ Date/Time of Note DATE: 06/15/19 TIME: 20:46 Exam/Review of Systems Exam Vitals Vital Signs Date Temp Pulse Resp B/P (MAP) Pulse Ox O2 O2 Flow FiO2 Time Delivery Rate 06/15/19 76 20 100 100 19:55 06/15/19 140/71 18:15 (94) 06/15/19 97.7 16:00 06/15/19 Mechanical 08:00 Ventilator Intake and Output 06/14/19 06/14/19 06/15/19 1515:00 23:00 07:00 IntakeIntake Total 1713.25 ml 1490.06 ml 1706.31 ml OutputOutput Total 250 ml 760 ml 689 ml BalanceBalance 1463.25 ml 730.06 ml 1017.31 ml Exam General: intubated on ventilator HEENT: ET tube in place, NG tube Neck: Supple, + JVD , no LAD Respiratory: Bilateral coarse BS+, basilar wheezing Cardiovascular: S1 S2 tachycardia, no murmur Gastrointestinal: soft, NT, ND, Thin abdomen, BS+, + PEG tube in place Neurological: sedated intubated on ventilator Results Result Diagram: 06/15/19 0325 06/15/19 1655 Results 24hrs Laboratory Tests Test 06/14/19 20:53 06/15/19 00:40 06/15/19 03:25 06/15/19 04:31 Bedside Glucose 288 H 265 H 240 H White Blood Count 16.4 H Red Blood Count 3.24 L Hemoglobin 9.7 L Hematocrit 30.7 L Mean Corpuscular 94.8 Volume Mean Corpuscular 29.9 Hemoglobin Mean Corpuscular 31.6 L Hemoglobin Concen t Red Cell 14.6 H Distribution Width Platelet Count 73 L Mean Platelet 12.4 H Volume Immature 0.600 H Granulocytes % Neutrophils % 94.6 H Segmented 65 Neutrophils % (Manual) Band Neutrophils 29 H % (Manual) Lymphocytes % 1.7 L Lymphocytes % 1 L (Manual) Monocytes % 2.7 Monocytes % 5 (Manual) Eosinophils % 0.0 Basophils % 0.4 Nucleated Red 0.2 H Blood Cells % Immature 0.100 H Granulocytes # Neutrophils # 15.5 H Neutrophils # 11.4 H (Manual) Band Neutrophils 4.7 H # Lymphocytes 0.1 L (Manual) Lymphocytes # 0.3 L Monocytes # 0.5 Monocytes # 0.8 (Manual) Eosinophils # 0.0 Basophils # 0.1 Nucleated Red 0.0 Blood Cells # Platelet Estimate DECREASED Poikilocytosis 1+ Anisocytosis 1+ Sodium Level 141 Potassium Level 3.3 L Chloride Level 103 Carbon Dioxide 30 Level Anion Gap 8 Blood Urea 42 H Nitrogen Creatinine 0.99 Est Glomerular Filtrat Rate mL/min Glucose Level 239 H Calcium Level 6.4 L Magnesium Level 2.0 Total Bilirubin 0.3 Direct Bilirubin 0.00 Indirect 0.3 Bilirubin Aspartate Amino 35 Transf (AST/SGOT) Alanine 24 Aminotransferase (ALT/SGPT) Alkaline 147 H Phosphatase Total Protein 4.9 L Albumin 2.1 L Globulin 2.80 Albumin/Globulin 0.75 Ratio Test 06/15/19 07:00 06/15/19 09:21 06/15/19 10:07 06/15/19 11:34 Blood Gas Blood arterial Specimen Source Arterial Blood 06/15/2019 9:35:5 Date Drawn 6 AM Arterial Blood pH 7.467 H (Temp corrected) Arterial Blood 45.6 H pCO2 (Temp correct) Arterial Blood 58.0 L pO2 (Temp corrected) Arterial Blood 32.2 H HCO3 Arterial Blood 7.6 H Base Excess Arterial Blood 90.8 L Oxygen Saturation James Test ACCEPTAB Arterial Blood Right Radial Gas Puncture Site Arterial 0.3 Blood Carboxyhemo globin Arterial Blood 0.2 Methemoglobin Blood Gas A-a O2 609.4 H Differential Oxyhemoglobin 90.3 L Percent Blood Gas 37.0 Temperature Blood Gas 20.0 Respiration Rate Blood Gas Actual 21 Respiration Rate Blood Gas VENT - AC Modality FiO2 100.0 Blood Gas Tidal 550.0 Volume Blood Gas Low 10.0 PEEP Setting Blood Gas JENNIE KOHLI Notified Whom Blood Gas 06/15/2019 10:00: Notified Time 18 AM Bedside Glucose 171 194 198 Test 06/15/19 12:21 06/15/19 13:59 06/15/19 15:10 06/15/19 16:55 Bedside Glucose 126 95 74 Sodium Level 140 Potassium Level 4.1 Chloride Level 104 Carbon Dioxide 32 H Level Anion Gap 4 L Blood Urea 43 H Nitrogen Creatinine 0.89 Glucose Level 111 # Calcium Level 6.7 L Phosphorus Level 3.5 Albumin 2.1 L Test 06/15/19 16:59 06/15/19 18:32 06/15/19 20:03 Bedside Glucose 106 98 109 Medications Medication Current Medications IV Flush (NS 3 ml) 3 ml PER PROTOCOL IV ; Start 06/10/19 at 12:00 Ondansetron HCl (Zofran Inj) 4 mg Q6H PRN IV NAUSEA/VOMITING; Start 06/10/19 at 12:00 Acetaminophen (Tylenol Tab) 650 mg Q6H PRN PO .PAIN 1-3 OR TEMP Last administered on 06/13/19at 15:52; Admin Dose 650 MG; Start 06/10/19 at 12:00 Acetaminophen/ Hydrocodone Bitart ([place] (5/325)) 1 tab Q6H PRN PO .PAIN 4-6; Start 06/10/19 at 12:00 Morphine Sulfate (morphine) 2 mg Q4H PRN IV .PAIN 7-10 Last administered on 06/15/19at 16:57; Admin Dose 2 MG; Start 06/10/19 at 12:00 Vancomycin HCl (Vanco Iv Per Pharmacy) VANCOMYCIN PER PHARMACY PER PROTOCOL XX ; Start 06/10/19 at 12:30 Amiodarone HCl (Cordarone) 100 mg DAILY GTB Last administered on 06/15/19at 09:05; Admin Dose 100 MG; Start 06/11/19 at 09:00 Atorvastatin Calcium (Lipitor) 20 mg QHS GTB Last administered on 06/15/19at 20:37; Admin Dose 20 MG; Start 06/10/19 at 21:00 Levetiracetam (Keppra Liquid) 500 mg BID GTB Last administered on 06/15/19at 20:37; Admin Dose 500 MG; Start 06/10/19 at 21:00 Olanzapine (Zyprexa) 5 mg DAILY GTB Last administered on 06/15/19at 09:04; Admin Dose 5 MG; Start 06/11/19 at 09:00 Polyethylene Glycol (Miralax) 17 gm DAILY GTB Last administered on 06/15/19at 09:04; Admin Dose 17 GM; Start 06/11/19 at 09:00 Miscellaneous Information 1 ea NOTE XX ; Start 06/10/19 at 14:00 Glucose (Glutose) 15 gm Q15M PRN PO DECREASED GLUCOSE; Start 06/10/19 at 14:00 Glucose (Glutose) 22.5 gm Q15M PRN PO DECREASED GLUCOSE; Start 06/10/19 at 14:00 Dextrose (D50w Syringe) 25 ml Q15M PRN IV DECREASED GLUCOSE; Start 06/10/19 at 14:00 Dextrose (D50w Syringe) 50 ml Q15M PRN IV DECREASED GLUCOSE; Start 06/10/19 at 14:00 Glucagon (Glucagen) 1 mg Q15M PRN IM DECREASED GLUCOSE; Start 06/10/19 at 14:00 Glucose (Glutose) 15 gm Q15M PRN BUCCAL DECREASED GLUCOSE; Start 06/10/19 at 14:00 Budesonide (Pulmicort (Neb)) 0.5 mg BID RESP THERAPY HHN Last administered on 06/15/19at 19:59; Admin Dose 0.5 MG; Start 06/10/19 at 20:00 IV Flush (NS 10 ml) 10 ml [id number] PRN IV Line Patency; Start 06/10/19 at 16:00 Fluvoxamine Maleate (Fluvoxamine Maleate) 25 mg DAILY GTB Last administered on 06/15/19 09:04; Admin Dose 25 MG; Start 06/11/19 at 09:00 Aspirin (Aspirin) 81 mg DAILY PEG Last administered on 06/15/19 09:04; Admin Dose 81 MG; Start 06/11/19 at 09:00 Heparin Sodium (Porcine) (Heparin (5000 Units/1ml)) 5,000 unit Q8 SC Last administered on 06/14/19 06:01; Admin Dose 5,000 UNIT; Start 06/11/19 at 14:00; Status Hold Potassium Chloride/Dextrose 1,000 ml @ 80 mls/hr [id number] IV Last administered on 06/15/19 10:53; Admin Dose 80 MLS/HR; Start 06/11/19 at 14:30 Ipratropium [place] (Atrovent 0.02% (Neb)) 0.5 mg Q4H RESP THERAPY PRN HHN SHORTNESS OF BREATH; Start 06/12/19 at 10:00 Levalbuterol (Xopenex Neb) 1.25 mg Q4H RESP THERAPY PRN HHN shortness of breath; Start 06/12/19 at 10:00 Fentanyl 100 ml @ 2.5 mls/hr TITRATE IV Last administered on 06/15/19 15:21; Admin Dose 10 MLS/HR; Start 06/12/19 at 10:00 Phenylephrine HCl 80 mg/Dextrose 250 ml @ 18.75 mls/ hr TITRATE IV Last administered on 06/15/19 18:39; Admin Dose 18.75 MLS/HR; Start 06/12/19 at 14:00 Levalbuterol (Xopenex Hfa) 4 puff Q6H RESP THERAPY INH Last administered on 06/15/19 19:59; Admin Dose 4 PUFF; Start 06/12/19 at 20:00 Ipratropium [place] (Atrovent Hfa) 4 puff Q6H RESP THERAPY INH Last administered on 06/15/19 19:59; Admin Dose 4 PUFF; Start 06/12/19 at 20:00 Norepinephrine 32 mg/Dextrose 250 ml @ 0.47 mls/hr TITRATE IV Last administered on 06/14/19 23:49; Admin Dose 5.06 MLS/HR; Start 06/13/19 at 08:00 Meropenem/Sodium Chloride 50 ml @ 100 mls/hr Q12 IVPB Last administered on 06/15/19at 20:37; Admin Dose 100 MLS/HR; Start 06/13/19 at 14:00 Hydrocortisone (Solu-Cortef) 100 mg Q8 IV Last administered on 06/15/19 14:05; Admin Dose 100 MG; Start 06/14/19 at 10:00 Vancomycin/Sodium Chloride 250 ml @ 83.333 mls/ hr Q24H IVPB Last administered on 06/15/19 05:33; Admin Dose 83.333 MLS/HR; Start 06/15/19 at 06:00 Docusate Sodium (Colace Liquid Cup) 100 mg BID GTB Last administered on 06/15/19 20:37; Admin Dose 100 MG; Start 06/14/19 at 12:30 Miscellaneous Information (*Rx Drug Level Order Reminder*) VANCOMYCIN TR 06/16 AT 0,500 0500 ONCE XX ; Start 06/16/19 at 05:00; Stop 06/16/19 at 05:01 Diagnostic Test (Pha) (Accu-Chek) 1 ea Q1H XX Last administered on 06/15/19at 20:33; Admin Dose 1 EA; Start 06/15/19 at 09:00 Insulin Human Regular 100 unit/ Sodium Chloride 100 ml @ 0 mls/hr PER PROTOCOL IV Last administered on 06/15/19 09:27; Admin Dose 0 MLS/HR; Start 06/15/19 at 09:30 Miscellaneous Information (* Miscellaneous Pharmacy Order) Treatment of Hypoglycemia: 1.BG 51... Per protocol XX ; Start 06/15/19 at 09:00 Dextrose (D50w Syringe) 25 ml Q15M PRN IV .DECREASED GLUCOSE; Start 06/15/19 at 09:00 Dextrose (D50w Syringe) 50 ml Q15M PRN IV .DECREASED GLUCOSE; Start 06/15/19 at 09:00 Potassium Chloride 50 ml @ 50 mls/hr K PROTOCOL PRN IVPB PENDING LAB VALUE; Start 06/15/19 at 09:00 GERMAN FELIX MD Jun 15, 2019 20:46
[2019-06-16] VITALS (103 sets, daily range): BP systolic 55–149; BP diastolic 38–93; PULSE 71–93; RESP 14–27
[2019-06-16] MEDS: ACCU-CHEK XX SCH ×19 (01:11→18:00)
[2019-06-16] MEDS: FENTAnyl (DRIP) 1000 mcg/100mL 100 ML IV SCH ×3 (01:12→20:11)
[2019-06-16] MEDS: IPRATROPIUM (HFA) 12.9 GM INHALER INH SCH ×4 (01:33→19:20)
[2019-06-16] MEDS: LEVALBUTEROL (HFA) 15 GM INHALER INH SCH ×4 (01:33→19:21)
[2019-06-16] MEDS: VANCOMYCIN 1.25 GM/NS 250 ML 250 ML IVPB SCH (06:00)
[2019-06-16] MEDS: HYDROCORTISONE 100 MG INJ IV SCH ×3 (06:20→21:54)
[2019-06-16] MEDS: BUDESONIDE (NEB) 0.5MG/2ML AMP HHN SCH ×2 (07:43→19:21)
[2019-06-16] MEDS: PHENYLephrine 80 MG in DEXTROSE 5% 242 ML IV SCH (08:39)
[2019-06-16] MEDS: POLYETHYLENE GLYCOL 17 GM PACKET GTB SCH (09:00)
--- NOTE | 2019-06-16 09:56 | PN ---
Date/Time of Note Date/Time of Note DATE: 06/16/19 TIME: 09:56 Assessment/Plan VTE Prophylaxis Risk score (from Nsg)>0 risk: 11 SCD applied (from Nsg): Yes Pharmacological prophylaxis: heparin Lines/Catheters IV Catheter Type (from Nrsg): PICC Line Central line still needed: Yes Urinary Cath still in place: Yes Reason Cath still needed: terminal illness/intractable pain Assessment/Plan Assessment/Plan 1. Acute hypoxic respiratory failure, ARDS secondary to sepsis - Patient remains intubated - Pulmonology on board and appreciate recommendations. Consistent with ARDS and managing vent settings. Currently at PEEP 10 - Continue IV antibiotics - continue weaning O2 as tolerated. Not stable for extubation at this time 2. Multifocal pneumonia - ID on board and appreciate recommendations - Continue current antibiotics - Repeat CXR this am shows improvement 3. Septic shock versus severe sepsis - continue on pressor support with MAP >65. Will wean as tolerated 4. Atrial fibrillation with RVR - stable - back in sinus rhythm - Cardiology consultation appreciated 5. Non-ST elevated CA - Cardiology consultation appreciated and will continue current medications - Very mild elevation - continue aspirin and statin 6. Hypocalcemia- resolved - corrected Ca 8.6 this am. 7. Thrombocytopenia - Very likely due to septic shock - Fibrinogen is elevated, unlikely DIC - Hold heparin for now 8. Chronic dysphasia - Patient has PEG tube 9. Diabetes mellitus - weaned off insulin drip and transitioned to Lantus 10. Chronic encephalopathy - CT of the brain initially showed alarming findings however there appears to be a mixup with patient's name, patient's actual name is Trey Roberts, [id number]. Neurosurgeon was initially consulted for possible brain bleed and other findings however when comparing to the patient's actual chart in 2013, neurosurgeon reviewed the CT and MRI and found a similar findings with no acute emergent change. - Monitor closely, patient appears to be at baseline 11. Dyslipidemia - Continue home meds 12. Mood disorder - Continue home meds 13. Chronic kidney disease - Very mild, nephrology on board 14. Failure to thrive - now DNR per families request 15. Disposition - Patient still remains critically ill and on 2 pressors. Will wean as able - Continue care in ICU at this time >35 minutes of critical care spent with patient Result Diagram: 06/16/19 0500 06/16/19 0500 Results 24hrs Laboratory Tests Test 7/21/19 10:07 06/15/19 11:34 06/15/19 12:21 06/15/19 13:59 Bedside Glucose 194 198 126 95 Test 06/15/19 15:10 06/15/19 16:55 06/15/19 16:59 06/15/19 18:32 Bedside Glucose 74 106 98 Sodium Level 140 Potassium Level 4.1 Chloride Level 104 Carbon Dioxide 32 H Level Anion Gap 4 L Blood Urea 43 H Nitrogen Creatinine 0.89 Glucose Level 111 # Calcium Level 6.7 L Phosphorus Level 3.5 Albumin 2.1 L Test 06/15/19 20:03 06/15/19 21:27 06/15/19 22:00 06/15/19 23:38 Bedside Glucose 109 138 132 122 Test 06/15/19 23:56 06/16/19 01:54 06/16/19 04:07 06/16/19 05:00 Bedside Glucose 129 114 112 White Blood 18.6 H Count Red Blood Count 3.05 L Hemoglobin 9.3 L Hematocrit 28.1 L Mean Corpuscular 92.1 Volume Mean Corpuscular 30.5 Hemoglobin Mean Corpuscular 33.1 Hemoglobin Christina nt Red Cell 14.6 H Distribution Width Platelet Count 50 #L Mean Platelet 12.4 H Volume Immature 0.500 H Granulocytes % Neutrophils % 95.8 H Segmented 75 Neutrophils % (Manual) Band Neutrophils 20 H % (Manual) Lymphocytes % 1.8 L Lymphocytes % 2 L (Manual) Reactive 1 H Lymphocytes % (Manual) Monocytes % 1.7 Monocytes % 2 (Manual) Eosinophils % 0.0 Basophils % 0.2 Nucleated Red 2 H Blood Cells % Immature 0.100 H Granulocytes # Neutrophils # 17.8 H Neutrophils # 14.6 H (Manual) Band Neutrophils 3.7 H # Lymphocytes 0.3 L (Manual) Lymphocytes # 0.3 L Reactive 0.1 H Lymphocytes # Monocytes # 0.3 Monocytes # 0.3 (Manual) Eosinophils # 0.0 Basophils # 0.0 Nucleated Red 0.0 Blood Cells # Platelet DECREASED Estimate Sodium Level 142 Potassium Level 3.7 Chloride Level 106 Carbon Dioxide 31 Level Anion Gap 5 Blood Urea 37 H Nitrogen Creatinine 0.85 Est Glomerular Filtrat Rate mL/min Glucose Level 128 Calcium Level 7.0 L Ionized Calcium 1.0 L (Measured) Phosphorus Level 3.2 Magnesium Level 2.2 Total Bilirubin 0.4 Direct Bilirubin 0.00 Indirect 0.4 Bilirubin Aspartate Amino 40 Transf (AST/SGOT ) Alanine 24 Aminotransferase (ALT/SGPT) Alkaline 111 Phosphatase Total Protein 4.7 L Albumin 2.0 L Globulin 2.70 Albumin/Globulin 0.74 Ratio Vancomycin Level 21.0 *H Trough Test 06/16/19 05:37 06/16/19 06:04 06/16/19 06:49 06/16/19 07:00 Lab Scanned REFERENCE LAB Report Bedside Glucose 150 149 Blood Gas Blood arterial Specimen Source Arterial Blood 06/16/2019 7:27: Date Drawn 28 AM Arterial Blood 7.506 H pH (Temp corrected) Arterial Blood 36.8 pCO2 (Temp correct) Arterial Blood 219.5 H pO2 (Temp corrected) Arterial Blood 28.4 H HCO3 Arterial Blood 5.2 H Base Excess Arterial Blood 99.2 Oxygen Saturatio n James Test ACCEPTAB Arterial Blood Left Radial Gas Puncture Site Arterial 0.3 Blood Carboxyhem oglobin Arterial Blood 0.3 Methemoglobin Blood Gas A-a O2 384.5 H Differential Oxyhemoglobin 98.6 Percent Blood Gas 37.0 Temperature Blood Gas 20.0 Respiration Rate Blood Gas Actual 20 Respiration Rate Blood Gas VENT - AC Modality FiO2 90.0 Blood Gas Tidal 550.0 Volume Blood Gas Low 10.0 PEEP Setting Blood Gas TM Notified Whom Blood Gas 06/16/2019 7:44: Notified Time 00 AM Test 06/16/19 08:41 Bedside Glucose 116 Subjective 24 Hr Interval Summary Free Text/Dictation Patient remains unresponsive and on 2 pressors for BP support. Daughter now agreeable to DNR code status. Exam/Review of Systems Exam Vitals Vital Signs Date Temp Pulse Resp B/P (MAP) Pulse Ox O2 O2 Flow FiO2 Time Delivery Rate 06/16/19 97.9 08:11 06/16/19 89 20 134/75 100 07:00 (94) 06/16/19 Mechanical 06:30 Ventilator 06/16/19 90 05:37 Intake and Output 06/15/19 06/15/19 06/16/19 1515:00 23:00 07:00 IntakeIntake Total 1511.53 ml 1157.40 ml 800.29 ml OutputOutput Total 740 ml 720 ml 820 ml BalanceBalance 771.53 ml 437.40 ml -19.71 ml Exam General: Patient is intubated and unresponsive Head: Normocephalic atraumatic Eyes: EOMI, pupils sluggish to light, 2mm bilaterally Neck: Supple, nontender, midline Respiratory: Coarse to auscultation bilaterally. no wheezing Cardiovascular: Regular rate and rhythm, no obvious murmurs Gastrointestinal: non-tender to palpation, bowel sounds heard. PEG in place Ext: bilateral lower extremity pitting edema Results Results 24hrs Laboratory Tests Test 06/15/19 10:07 06/15/19 11:34 06/15/19 12:21 06/15/19 13:59 Bedside Glucose 194 198 126 95 Test 06/15/19 15:10 06/15/19 16:55 06/15/19 16:59 06/15/19 18:32 Bedside Glucose 74 106 98 Sodium Level 140 Potassium Level 4.1 Chloride Level 104 Carbon Dioxide 32 H Level Anion Gap 4 L Blood Urea 43 H Nitrogen Creatinine 0.89 Glucose Level 111 # Calcium Level 6.7 L Phosphorus Level 3.5 Albumin 2.1 L Test 06/15/19 20:03 06/15/19 21:27 06/15/19 22:00 06/15/19 23:38 Bedside Glucose 109 138 132 122 Test 06/15/19 23:56 06/16/19 01:54 06/16/19 04:07 06/16/19 05:00 Bedside Glucose 129 114 112 White Blood 18.6 H Count Red Blood Count 3.05 L Hemoglobin 9.3 L Hematocrit 28.1 L Mean Corpuscular 92.1 Volume Mean Corpuscular 30.5 Hemoglobin Mean Corpuscular 33.1 Hemoglobin Christina nt Red Cell 14.6 H Distribution Width Platelet Count 50 #L Mean Platelet 12.4 H Volume Immature 0.500 H Granulocytes % Neutrophils % 95.8 H Segmented 75 Neutrophils % (Manual) Band Neutrophils 20 H % (Manual) Lymphocytes % 1.8 L Lymphocytes % 2 L (Manual) Reactive 1 H Lymphocytes % (Manual) Monocytes % 1.7 Monocytes % 2 (Manual) Eosinophils % 0.0 Basophils % 0.2 Nucleated Red 2 H Blood Cells % Immature 0.100 H Granulocytes # Neutrophils # 17.8 H Neutrophils # 14.6 H (Manual) Band Neutrophils 3.7 H # Lymphocytes 0.3 L (Manual) Lymphocytes # 0.3 L Reactive 0.1 H Lymphocytes # Monocytes # 0.3 Monocytes # 0.3 (Manual) Eosinophils # 0.0 Basophils # 0.0 Nucleated Red 0.0 Blood Cells # Platelet DECREASED Estimate Sodium Level 142 Potassium Level 3.7 Chloride Level 106 Carbon Dioxide 31 Level Anion Gap 5 Blood Urea 37 H Nitrogen Creatinine 0.85 Est Glomerular Filtrat Rate mL/min Glucose Level 128 Calcium Level 7.0 L Ionized Calcium 1.0 L (Measured) Phosphorus Level 3.2 Magnesium Level 2.2 Total Bilirubin 0.4 Direct Bilirubin 0.00 Indirect 0.4 Bilirubin Aspartate Amino 40 Transf (AST/SGOT ) Alanine 24 Aminotransferase (ALT/SGPT) Alkaline 111 Phosphatase Total Protein 4.7 L Albumin 2.0 L Globulin 2.70 Albumin/Globulin 0.74 Ratio Vancomycin Level 21.0 *H Trough Test 06/16/19 05:37 06/16/19 06:04 06/16/19 06:49 06/16/19 07:00 Lab Scanned REFERENCE LAB Report Bedside Glucose 150 149 Blood Gas Blood arterial Specimen Source Arterial Blood 06/16/2019 7:27: Date Drawn 28 AM Arterial Blood 7.506 H pH (Temp corrected) Arterial Blood 36.8 pCO2 (Temp correct) Arterial Blood 219.5 H pO2 (Temp corrected) Arterial Blood 28.4 H HCO3 Arterial Blood 5.2 H Base Excess Arterial Blood 99.2 Oxygen Saturatio n James Test ACCEPTAB Arterial Blood Left Radial Gas Puncture Site Arterial 0.3 Blood Carboxyhem oglobin Arterial Blood 0.3 Methemoglobin Blood Gas A-a O2 384.5 H Differential Oxyhemoglobin 98.6 Percent Blood Gas 37.0 Temperature Blood Gas 20.0 Respiration Rate Blood Gas Actual 20 Respiration Rate Blood Gas VENT - AC Modality FiO2 90.0 Blood Gas Tidal 550.0 Volume Blood Gas Low 10.0 PEEP Setting Blood Gas TM Notified Whom Blood Gas 06/16/2019 7:44: Notified Time 00 AM Test 06/16/19 08:41 Bedside Glucose 116 Medications Medication Current Medications IV Flush (NS 3 ml) 3 ml PER PROTOCOL IV ; Start 06/10/19 at 12:00 Ondansetron HCl (Zofran Inj) 4 mg Q6H PRN IV NAUSEA/VOMITING; Start 06/10/19 at 12:00 Acetaminophen (Tylenol Tab) 650 mg Q6H PRN PO .PAIN 1-3 OR TEMP Last administered on 06/13/19at 15:52; Admin Dose 650 MG; Start 06/10/19 at 12:00 Acetaminophen/ Hydrocodone Bitart ([place] (5/325)) 1 tab Q6H PRN PO .PAIN 4-6; Start 06/10/19 at 12:00 Morphine Sulfate (morphine) 2 mg Q4H PRN IV .PAIN 7-10 Last administered on 06/15/19at 16:57; Admin Dose 2 MG; Start 06/10/19 at 12:00 Vancomycin HCl (Vanco Iv Per Pharmacy) VANCOMYCIN PER PHARMACY PER PROTOCOL XX ; Start 06/10/19 at 12:30 Amiodarone HCl (Cordarone) 100 mg DAILY GTB Last administered on 06/15/19at 09:05; Admin Dose 100 MG; Start 06/11/19 at 09:00 Atorvastatin Calcium (Lipitor) 20 mg QHS GTB Last administered on 06/15/19at 20:37; Admin Dose 20 MG; Start 06/10/19 at 21:00 Levetiracetam (Keppra Liquid) 500 mg BID GTB Last administered on 06/15/19at 20:37; Admin Dose 500 MG; Start 06/10/19 at 21:00 Olanzapine (Zyprexa) 5 mg DAILY GTB Last administered on 06/15/19at 09:04; Admin Dose 5 MG; Start 06/11/19 at 09:00 Polyethylene Glycol (Miralax) 17 gm DAILY GTB Last administered on 06/15/19at 09:04; Admin Dose 17 GM; Start 06/11/19 at 09:00 Miscellaneous Information 1 ea NOTE XX ; Start 06/10/19 at 14:00 Glucose (Glutose) 15 gm Q15M PRN PO DECREASED GLUCOSE; Start 06/10/19 at 14:00 Glucose (Glutose) 22.5 gm Q15M PRN PO DECREASED GLUCOSE; Start 06/10/19 at 14:00 Dextrose (D50w Syringe) 25 ml Q15M PRN IV DECREASED GLUCOSE; Start 06/10/19 at 14:00 Dextrose (D50w Syringe) 50 ml Q15M PRN IV DECREASED GLUCOSE; Start 06/10/19 at 14:00 Glucagon (Glucagen) 1 mg Q15M PRN IM DECREASED GLUCOSE; Start 06/10/19 at 14:00 Glucose (Glutose) 15 gm Q15M PRN BUCCAL DECREASED GLUCOSE; Start 06/10/19 at 14:00 Budesonide (Pulmicort (Neb)) 0.5 mg BID RESP THERAPY HHN Last administered on 06/16/19 07:43; Admin Dose 0.5 MG; Start 06/10/19 at 20:00 IV Flush (NS 10 ml) 10 ml [id number] PRN IV Line Patency; Start 06/10/19 at 16:00 Fluvoxamine Maleate (Fluvoxamine Maleate) 25 mg DAILY GTB Last administered on 06/15/19 09:04; Admin Dose 25 MG; Start 06/11/19 at 09:00 Aspirin (Aspirin) 81 mg DAILY PEG Last administered on 06/15/19 09:04; Admin Dose 81 MG; Start 06/11/19 at 09:00 Heparin Sodium (Porcine) (Heparin (5000 Units/1ml)) 5,000 unit Q8 SC Last administered on 06/14/19 06:01; Admin Dose 5,000 UNIT; Start 06/11/19 at 14:00; Status Hold Potassium Chloride/Dextrose 1,000 ml @ 70 mls/hr [id number] IV Last administered on 06/15/19 23:47; Admin Dose 70 MLS/HR; Start 06/11/19 at 14:30 Ipratropium [place] (Atrovent 0.02% (Neb)) 0.5 mg Q4H RESP THERAPY PRN HHN SHORTNESS OF BREATH; Start 06/12/19 at 10:00 Levalbuterol (Xopenex Neb) 1.25 mg Q4H RESP THERAPY PRN HHN shortness of breath; Start 06/12/19 at 10:00 Fentanyl 100 ml @ 2.5 mls/hr TITRATE IV Last administered on 06/16/19 01:12; Admin Dose 10 MLS/HR; Start 06/12/19 at 10:00 Phenylephrine HCl 80 mg/Dextrose 250 ml @ 18.75 mls/ hr TITRATE IV Last administered on 06/16/19 08:39; Admin Dose 15.1 MLS/HR; Start 06/12/19 at 14:00 Levalbuterol (Xopenex Hfa) 4 puff Q6H RESP THERAPY INH Last administered on 06/16/19 07:43; Admin Dose 4 PUFF; Start 06/12/19 at 20:00 Ipratropium [place] (Atrovent Hfa) 4 puff Q6H RESP THERAPY INH Last administered on 06/16/19 07:43; Admin Dose 4 PUFF; Start 06/12/19 at 20:00 Norepinephrine 32 mg/Dextrose 250 ml @ 0.47 mls/hr TITRATE IV Last administered on 06/14/19 23:49; Admin Dose 5.06 MLS/HR; Start 06/13/19 at 08:00 Meropenem/Sodium Chloride 50 ml @ 100 mls/hr Q12 IVPB Last administered on 06/15/19 20:37; Admin Dose 100 MLS/HR; Start 06/13/19 at 14:00 Hydrocortisone (Solu-Cortef) 100 mg Q8 IV Last administered on 06/16/19 06:20; Admin Dose 100 MG; Start 06/14/19 at 10:00 Docusate Sodium (Colace Liquid Cup) 100 mg BID GTB Last administered on 06/15/19 20:37; Admin Dose 100 MG; Start 06/14/19 at 12:30 Diagnostic Test (Pha) (Accu-Chek) 1 ea Q1H XX Last administered on 06/16/19 07:05; Admin Dose 1 EA; Start 06/15/19 at 09:00 Insulin Human Regular 100 unit/ Sodium Chloride 100 ml @ 0 mls/hr PER PROTOCOL IV Last administered on 06/15/19 09:27; Admin Dose 0 MLS/HR; Start 06/15/19 at 09:30 Miscellaneous Information (* Miscellaneous Pharmacy Order) Treatment of Hypoglycemia: 1.BG 51... Per protocol XX ; Start 06/15/19 at 09:00 Dextrose (D50w Syringe) 25 ml Q15M PRN IV .DECREASED GLUCOSE; Start 06/15/19 at 09:00 Dextrose (D50w Syringe) 50 ml Q15M PRN IV .DECREASED GLUCOSE; Start 06/15/19 at 09:00 Potassium Chloride 50 ml @ 50 mls/hr K PROTOCOL PRN IVPB PENDING LAB VALUE; Start 06/15/19 at 09:00 Vancomycin/Sodium Chloride 250 ml @ 125 mls/hr Q24H IVPB ; Start 06/16/19 at 12:00 SHENG DONNELLY MD Jun 16, 2019 09:56
--- NOTE | 2019-06-16 10:07 | CONS ---
Consult Date/Type/Reason Admit Date/Time Jun 10, 2019 at 12:38 Initial Consult Date 06/11/19 Type of Consult Pulmonary Requesting Provider: MALINI GOMEZ Date/Time of Note DATE: 06/16/19 TIME: 10:06 Subjective Patient comfortable this morning no significant changes remains largely somnolent still requiring 2 vasopressors and insulin drip. FiO2 at 75% with PEE P of 10. Objective Vital Signs Date Temp Pulse Resp B/P (MAP) Pulse Ox O2 O2 Flow FiO2 Time Delivery Rate 06/16/19 97.9 08:11 06/16/19 89 20 134/75 100 07:00 (94) 06/16/19 Mechanical 06:30 Ventilator 06/16/19 90 05:37 Intake and Output 06/15/19 06/15/19 06/16/19 1515:00 23:00 07:00 IntakeIntake Total 1511.53 ml 1157.40 ml 800.29 ml OutputOutput Total 740 ml 720 ml 820 ml BalanceBalance 771.53 ml 437.40 ml -19.71 ml Exam GENERAL: Elderly lady orally intubated on mechanical ventilation VITAL SIGNS: per chart NECK: Supple. No JVD or lymphadenopathy. CARDIAC EXAM: S1, S2. No added sounds or murmurs. CHEST: Diminished air entry bilaterally with rales ABDOMEN: Soft, nontender. No guarding or rebound. EXTREMITIES: No cyanosis, clubbing edema +2 NEUROLOGIC: Generalized weakness. Vent Setting Ventilator Support Mode: AC Fraction of Inspired Oxygen pe: 90 Positive End Expiratory Pressu: 10.0 Results/Medications Result Diagram: 06/16/19 0500 06/16/19 0500 Results 24 hrs Laboratory Tests Test 06/15/19 10:07 06/15/19 11:34 06/15/19 12:21 06/15/19 13:59 Bedside Glucose 194 198 126 95 Test 06/15/19 15:10 06/15/19 16:55 06/15/19 16:59 06/15/19 18:32 Bedside Glucose 74 106 98 Sodium Level 140 Potassium Level 4.1 Chloride Level 104 Carbon Dioxide 32 H Level Anion Gap 4 L Blood Urea 43 H Nitrogen Creatinine 0.89 Glucose Level 111 # Calcium Level 6.7 L Phosphorus Level 3.5 Albumin 2.1 L Test 06/15/19 20:03 06/15/19 21:27 06/15/19 22:00 06/15/19 23:38 Bedside Glucose 109 138 132 122 Test 06/15/19 23:56 06/16/19 01:54 06/16/19 04:07 06/16/19 05:00 Bedside Glucose 129 114 112 White Blood 18.6 H Count Red Blood Count 3.05 L Hemoglobin 9.3 L Hematocrit 28.1 L Mean Corpuscular 92.1 Volume Mean Corpuscular 30.5 Hemoglobin Mean Corpuscular 33.1 Hemoglobin Christina nt Red Cell 14.6 H Distribution Width Platelet Count 50 #L Mean Platelet 12.4 H Volume Immature 0.500 H Granulocytes % Neutrophils % 95.8 H Segmented 75 Neutrophils % (Manual) Band Neutrophils 20 H % (Manual) Lymphocytes % 1.8 L Lymphocytes % 2 L (Manual) Reactive 1 H Lymphocytes % (Manual) Monocytes % 1.7 Monocytes % 2 (Manual) Eosinophils % 0.0 Basophils % 0.2 Nucleated Red 2 H Blood Cells % Immature 0.100 H Granulocytes # Neutrophils # 17.8 H Neutrophils # 14.6 H (Manual) Band Neutrophils 3.7 H # Lymphocytes 0.3 L (Manual) Lymphocytes # 0.3 L Reactive 0.1 H Lymphocytes # Monocytes # 0.3 Monocytes # 0.3 (Manual) Eosinophils # 0.0 Basophils # 0.0 Nucleated Red 0.0 Blood Cells # Platelet DECREASED Estimate Sodium Level 142 Potassium Level 3.7 Chloride Level 106 Carbon Dioxide 31 Level Anion Gap 5 Blood Urea 37 H Nitrogen Creatinine 0.85 Est Glomerular Filtrat Rate mL/min Glucose Level 128 Calcium Level 7.0 L Ionized Calcium 1.0 L (Measured) Phosphorus Level 3.2 Magnesium Level 2.2 Total Bilirubin 0.4 Direct Bilirubin 0.00 Indirect 0.4 Bilirubin Aspartate Amino 40 Transf (AST/SGOT ) Alanine 24 Aminotransferase (ALT/SGPT) Alkaline 111 Phosphatase Total Protein 4.7 L Albumin 2.0 L Globulin 2.70 Albumin/Globulin 0.74 Ratio Vancomycin Level 21.0 *H Trough Test 06/16/19 05:37 06/16/19 06:04 06/16/19 06:49 06/16/19 07:00 Lab Scanned REFERENCE LAB Report Bedside Glucose 150 149 Blood Gas Blood arterial Specimen Source Arterial Blood 06/16/2019 7:27: Date Drawn 28 AM Arterial Blood 7.506 H pH (Temp corrected) Arterial Blood 36.8 pCO2 (Temp correct) Arterial Blood 219.5 H pO2 (Temp corrected) Arterial Blood 28.4 H HCO3 Arterial Blood 5.2 H Base Excess Arterial Blood 99.2 Oxygen Saturatio n James Test ACCEPTAB Arterial Blood Left Radial Gas Puncture Site Arterial 0.3 Blood Carboxyhem oglobin Arterial Blood 0.3 Methemoglobin Blood Gas A-a O2 384.5 H Differential Oxyhemoglobin 98.6 Percent Blood Gas 37.0 Temperature Blood Gas 20.0 Respiration Rate Blood Gas Actual 20 Respiration Rate Blood Gas VENT - AC Modality FiO2 90.0 Blood Gas Tidal 550.0 Volume Blood Gas Low 10.0 PEEP Setting Blood Gas TM Notified Whom Blood Gas 06/16/2019 7:44: Notified Time 00 AM Test 06/16/19 08:41 Bedside Glucose 116 Medications Current Medications IV Flush (NS 3 ml) 3 ml PER PROTOCOL IV ; Start 06/10/19 at 12:00 Ondansetron HCl (Zofran Inj) 4 mg Q6H PRN IV NAUSEA/VOMITING; Start 06/10/19 at 12:00 Acetaminophen (Tylenol Tab) 650 mg Q6H PRN PO .PAIN 1-3 OR TEMP Last administered on 06/13/19at 15:52; Admin Dose 650 MG; Start 06/10/19 at 12:00 Acetaminophen/ Hydrocodone Bitart ([place] (5/325)) 1 tab Q6H PRN PO .PAIN 4-6; Start 06/10/19 at 12:00 Morphine Sulfate (morphine) 2 mg Q4H PRN IV .PAIN 7-10 Last administered on 06/15/19at 16:57; Admin Dose 2 MG; Start 06/10/19 at 12:00 Vancomycin HCl (Vanco Iv Per Pharmacy) VANCOMYCIN PER PHARMACY PER PROTOCOL XX ; Start 06/10/19 at 12:30 Amiodarone HCl (Cordarone) 100 mg DAILY GTB Last administered on 06/15/19at 09:05; Admin Dose 100 MG; Start 06/11/19 at 09:00 Atorvastatin Calcium (Lipitor) 20 mg QHS GTB Last administered on 06/15/19at 20:37; Admin Dose 20 MG; Start 06/10/19 at 21:00 Levetiracetam (Keppra Liquid) 500 mg BID GTB Last administered on 06/15/19at 20:37; Admin Dose 500 MG; Start 06/10/19 at 21:00 Olanzapine (Zyprexa) 5 mg DAILY GTB Last administered on 06/15/19at 09:04; Admin Dose 5 MG; Start 06/11/19 at 09:00 Polyethylene Glycol (Miralax) 17 gm DAILY GTB Last administered on 06/15/19at 09:04; Admin Dose 17 GM; Start 06/11/19 at 09:00 Miscellaneous Information 1 ea NOTE XX ; Start 06/10/19 at 14:00 Glucose (Glutose) 15 gm Q15M PRN PO DECREASED GLUCOSE; Start 06/10/19 at 14:00 Glucose (Glutose) 22.5 gm Q15M PRN PO DECREASED GLUCOSE; Start 06/10/19 at 14:00 Dextrose (D50w Syringe) 25 ml Q15M PRN IV DECREASED GLUCOSE; Start 06/10/19 at 14:00 Dextrose (D50w Syringe) 50 ml Q15M PRN IV DECREASED GLUCOSE; Start 06/10/19 at 14:00 Glucagon (Glucagen) 1 mg Q15M PRN IM DECREASED GLUCOSE; Start 06/10/19 at 14:00 Glucose (Glutose) 15 gm Q15M PRN BUCCAL DECREASED GLUCOSE; Start 06/10/19 at 14:00 Budesonide (Pulmicort (Neb)) 0.5 mg BID RESP THERAPY HHN Last administered on 06/16/19at 07:43; Admin Dose 0.5 MG; Start 06/10/19 at 20:00 IV Flush (NS 10 ml) 10 ml [id number] PRN IV Line Patency; Start 06/10/19 at 16:00 Fluvoxamine Maleate (Fluvoxamine Maleate) 25 mg DAILY GTB Last administered on 06/15/19at 09:04; Admin Dose 25 MG; Start 06/11/19 at 09:00 Aspirin (Aspirin) 81 mg DAILY PEG Last administered on 06/15/19at 09:04; Admin Dose 81 MG; Start 06/11/19 at 09:00 Heparin Sodium (Porcine) (Heparin (5000 Units/1ml)) 5,000 unit Q8 SC Last administered on 06/14/19at 06:01; Admin Dose 5,000 UNIT; Start 06/11/19 at 14:00; Status Hold Potassium Chloride/Dextrose 1,000 ml @ 70 mls/hr [id number] IV Last administered on 06/15/19 23:47; Admin Dose 70 MLS/HR; Start 06/11/19 at 14:30 Ipratropium [place] (Atrovent 0.02% (Neb)) 0.5 mg Q4H RESP THERAPY PRN HHN SHORTNESS OF BREATH; Start 06/12/19 at 10:00 Levalbuterol (Xopenex Neb) 1.25 mg Q4H RESP THERAPY PRN HHN shortness of breath; Start 06/12/19 at 10:00 Fentanyl 100 ml @ 2.5 mls/hr TITRATE IV Last administered on 06/16/19 01:12; Admin Dose 10 MLS/HR; Start 06/12/19 at 10:00 Phenylephrine HCl 80 mg/Dextrose 250 ml @ 18.75 mls/ hr TITRATE IV Last administered on 06/16/19 08:39; Admin Dose 15.1 MLS/HR; Start 06/12/19 at 14:00 Levalbuterol (Xopenex Hfa) 4 puff Q6H RESP THERAPY INH Last administered on 06/16/19 07:43; Admin Dose 4 PUFF; Start 06/12/19 at 20:00 Ipratropium [place] (Atrovent Hfa) 4 puff Q6H RESP THERAPY INH Last adm inistered on 06/16/19 07:43; Admin Dose 4 PUFF; Start 06/12/19 at 20:00 Norepinephrine 32 mg/Dextrose 250 ml @ 0.47 mls/hr TITRATE IV Last administered on 06/14/19 23:49; Admin Dose 5.06 MLS/HR; Start 06/13/19 at 08:00 Meropenem/Sodium Chloride 50 ml @ 100 mls/hr Q12 IVPB Last administered on 06/15/19 20:37; Admin Dose 100 MLS/HR; Start 06/13/19 at 14:00 Hydrocortisone (Solu-Cortef) 100 mg Q8 IV Last administered on 06/16/19 06:20; Admin Dose 100 MG; Start 06/14/19 at 10:00 Docusate Sodium (Colace Liquid Cup) 100 mg BID GTB Last administered on 7/21/19at 20:37; Admin Dose 100 MG; Start 06/14/19 at 12:30 Diagnostic Test (Pha) (Accu-Chek) 1 ea Q1H XX Last administered on 06/16/19at 0 7:05; Admin Dose 1 EA; Start 06/15/19 at 09:00 Insulin Human Regular 100 unit/ Sodium Chloride 100 ml @ 0 mls/hr PER PROTOCOL IV Last administered on 06/15/19at 09:27; Admin Dose 0 MLS/HR; Start 06/15/19 at 09:30 Miscellaneous Information (* Miscellaneous Pharmacy Order) Treatment of Hypoglycemia: 1.BG 51... Per protocol XX ; Start 06/15/19 at 09:00 Dextrose (D50w Syringe) 25 ml Q15M PRN IV .DECREASED GLUCOSE; Start 06/15/19 at 09:00 Dextrose (D50w Syringe) 50 ml Q15M PRN IV .DECREASED GLUCOSE; Start 06/15/19 at 09:00 Potassium Chloride 50 ml @ 50 mls/hr K PROTOCOL PRN IVPB PENDING LAB VALUE; Start 06/15/19 at 09:00 Vancomycin/Sodium Chloride 250 ml @ 125 mls/hr Q24H IVPB ; Start 06/16/19 at 12:00 Assessment/Plan Hospital Course (Demo Recall) Assessment 1. Acute hypoxemic and hypercapnic respiratory failure radiographic findings consistent with ARDS. 2. Status post respiratory metabolic acidosis. 3. Refractory septic shock likely secondary to pneumonia 4. Encephalopathy toxic metabolic 5. Thrombocytopenia possible DIC 6. Dysphagia secondary to above Plan 1. Continue mechanical ventilation increase minute ventilation for hypercapnia 2. Increased sedation for agitation 3. Continue broad-spectrum antibiotic coverage 4. Empiric steroid trial for refractory shock 5. Tube feeding if tolerated, Palliative care evaluation Critical care time 40 minutes LAVERNE HYDE MD, [facility] Jun 16, 2019 10:07
[2019-06-16] MEDS: ASPIRIN 81 MG TAB PEG SCH (10:40)
[2019-06-16] MEDS: LEVETIRACETAM (100 MG/ML) 5ML CUP GTB SCH ×2 (10:40→21:02)
[2019-06-16] MEDS: DOCUSATE SODIUM 10 MG/ML (10ML CUP) GTB SCH ×2 (10:40→21:03)
[2019-06-16] MEDS: FLUVOXAMINE MALEATE 25 MG TABLET GTB SCH (10:41)
[2019-06-16] MEDS: AMIODARONE 200 MG TAB GTB SCH (10:41)
[2019-06-16] MEDS: MEROPENEM 1 GM/50ML(PMX) 50 ML IVPB SCH ×2 (10:47→21:02)
[2019-06-16] MEDS: BALSAM PERU/CASTOR OIL 60 GM TUBE TOP SCH (10:47)
[2019-06-16] MEDS: OLANZAPINE 5 MG TAB GTB SCH (10:47)
--- NOTE | 2019-06-16 11:41 | CONS ---
Assessment/Plan Assessment/Plan Assessment/Plan (Daily) 1. acute Hypernatremia due to severe dehydration - Improving 2. acute Hyperkalemia due to FLOYD - Resolved 3. acute kidney injury on CKD III due to ATN from sepsis and Prerenal azotemia 4 . Septic shock due to multifocal PNA 5. Acute hypoxic respiratory failure due to PNA and Septic shock - Failed BIPAP- Intubated on 06/12/19 6. H/O severe dementia 7. H/O HTN 8. H/O HL 9. SNF resident 10. acute on chronic encephalopathy 11 h/o Dysphagia S/p G tube placement 12. Hypocalcemia with Ca 6.7 Plan: BUN/Cr 37/0.85 , other electrolytes normal toda y, Conitnue IVF D5w with KCL 20mEQ at 80 cc/hr currenlty on IV abx meropenem , Renally dose all abx and monitor electrolytes Ventilator Management as per pulmonary Full Code, as per Son Ca 7.0 today, ionised Ca 1.0- will give calcium gluconate if Ca drops lwer than 7.0 will follow up Consultation Date/Type/Reason Admit Date/Time Jun 10, 2019 at 12:38 Initial Consult Date 06/11/19 Type of Consult NEPHROLOGY Requesting Provider: MALINI GOMEZ Date/Time of Note DATE: 06/16/19 TIME: 11:41 Exam/Review of Systems Exam Vitals Vital Signs Date Temp Pulse Resp B/P (MAP) Pulse Ox O2 O2 Flow FiO2 Time Delivery Rate 06/16/19 97.9 08:11 06/16/19 89 20 134/75 100 07:00 (94) 06/16/19 Mechanical 06:30 Ventilator 06/16/19 90 05:37 Intake and Output 06/15/19 06/15/19 06/16/19 1515:00 23:00 07:00 IntakeIntake Total 1511.53 ml 1157.40 ml 800.29 ml OutputOutput Total 740 ml 720 ml 820 ml BalanceBalance 771.53 ml 437.40 ml -19.71 ml Results Result Diagram: 06/16/19 0500 06/16/19 0500 Results 24hrs Laboratory Tests Test 06/15/19 12:21 06/15/19 13:59 06/15/19 15:10 06/15/19 16:55 Bedside Glucose 126 95 74 Sodium Level 140 Potassium Level 4.1 Chloride Level 104 Carbon Dioxide 32 H Level Anion Gap 4 L Blood Urea 43 H Nitrogen Creatinine 0.89 Glucose Level 111 # Calcium Level 6.7 L Phosphorus Level 3.5 Albumin 2.1 L Test 06/15/19 16:59 06/15/19 18:32 06/15/19 20:03 06/15/19 21:27 Bedside Glucose 106 98 109 138 Test 06/15/19 22:00 06/15/19 23:38 06/15/19 23:56 06/16/19 01:54 Bedside Glucose 132 122 129 114 Test 06/16/19 04:07 06/16/19 05:00 06/16/19 05:37 06/16/19 06:04 Bedside Glucose 112 150 White Blood 18.6 H Count Red Blood Count 3.05 L Hemoglobin 9.3 L Hematocrit 28.1 L Mean Corpuscular 92.1 Volume Mean Corpuscular 30.5 Hemoglobin Mean Corpuscular 33.1 Hemoglobin Christina nt Red Cell 14.6 H Distribution Width Platelet Count 50 #L Mean Platelet 12.4 H Volume Immature 0.500 H Granulocytes % Neutrophils % 95.8 H Segmented 75 Neutrophils % (Manual) Band Neutrophils 20 H % (Manual) Lymphocytes % 1.8 L Lymphocytes % 2 L (Manual) Reactive 1 H Lymphocytes % (Manual) Monocytes % 1.7 Monocytes % 2 (Manual) Eosinophils % 0.0 Basophils % 0.2 Nucleated Red 2 H Blood Cells % Immature 0.100 H Granulocytes # Neutrophils # 17.8 H Neutrophils # 14.6 H (Manual) Band Neutrophils 3.7 H # Lymphocytes 0.3 L (Manual) Lymphocytes # 0.3 L Reactive 0.1 H Lymphocytes # Monocytes # 0.3 Monocytes # 0.3 (Manual) Eosinophils # 0.0 Basophils # 0.0 Nucleated Red 0.0 Blood Cells # Platelet DECREASED Estimate Sodium Level 142 Potassium Level 3.7 Chloride Level 106 Carbon Dioxide 31 Level Anion Gap 5 Blood Urea 37 H Nitrogen Creatinine 0.85 Est Glomerular Filtrat Rate mL/min Glucose Level 128 Calcium Level 7.0 L Ionized Calcium 1.0 L (Measured) Phosphorus Level 3.2 Magnesium Level 2.2 Total Bilirubin 0.4 Direct Bilirubin 0.00 Indirect 0.4 Bilirubin Aspartate Amino 40 Transf (AST/SGOT ) Alanine 24 Aminotransferase (ALT/SGPT) Alkaline 111 Phosphatase Total Protein 4.7 L Albumin 2.0 L Globulin 2.70 Albumin/Globulin 0.74 Ratio Vancomycin Level 21.0 *H Trough Lab Scanned REFERENCE LAB Report Test 06/16/19 06:49 06/16/19 07:00 06/16/19 08:41 06/16/19 10:54 Bedside Glucose 149 116 90 Blood Gas Blood arterial Specimen Source Arterial Blood 06/16/2019 7:27: Date Drawn 28 AM Arterial Blood 7.506 H pH (Temp corrected) Arterial Blood 36.8 pCO2 (Temp correct) Arterial Blood 219.5 H pO2 (Temp corrected) Arterial Blood 28.4 H HCO3 Arterial Blood 5.2 H Base Excess Arterial Blood 99.2 Oxygen Saturatio n James Test ACCEPTAB Arterial Blood Left Radial Gas Puncture Site Arterial 0.3 Blood Carboxyhem oglobin Arterial Blood 0.3 Methemoglobin Blood Gas A-a O2 384.5 H Differential Oxyhemoglobin 98.6 Percent Blood Gas 37.0 Temperature Blood Gas 20.0 Respiration Rate Blood Gas Actual 20 Respiration Rate Blood Gas VENT - AC Modality FiO2 90.0 Blood Gas Tidal 550.0 Volume Blood Gas Low 10.0 PEEP Setting Blood Gas TM Notified Whom Blood Gas 06/16/2019 7:44: Notified Time 00 AM Medications Medication Current Medications IV Flush (NS 3 ml) 3 ml PER PROTOCOL IV ; Start 06/10/19 at 12:00 Ondansetron HCl (Zofran Inj) 4 mg Q6H PRN IV NAUSEA/VOMITING; Start 06/10/19 at 12:00 Acetaminophen (Tylenol Tab) 650 mg Q6H PRN PO .PAIN 1-3 OR TEMP Last administered on 06/13/19at 15:52; Admin Dose 650 MG; Start 06/10/19 at 12:00 Acetaminophen/ Hydrocodone Bitart ([place] (5/325)) 1 tab Q6H PRN PO .PAIN 4-6; Start 06/10/19 at 12:00 Morphine Sulfate (morphine) 2 mg Q4H PRN IV .PAIN 7-10 Last administered on 06/15/19at 16:57; Admin Dose 2 MG; Start 06/10/19 at 12:00 Vancomycin HCl (Vanco Iv Per Pharmacy) VANCOMYCIN PER PHARMACY PER PROTOCOL XX ; Start 06/10/19 at 12:30 Amiodarone HCl (Cordarone) 100 mg DAILY GTB Last administered on 06/16/19 10:41; Admin Dose 100 MG; Start 06/11/19 at 09:00 Atorvastatin Calcium (Lipitor) 20 mg QHS GTB Last administered on 06/15/19at 20 :37; Admin Dose 20 MG; Start 06/10/19 at 21:00 Levetiracetam (Keppra Liquid) 500 mg BID GTB Last administered on 06/16/19at 10:40; Admin Dose 500 MG; Start 06/10/19 at 21:00 Olanzapine (Zyprexa) 5 mg DAILY GTB Last administered on 06/16/19 10:47; Admin Dose 5 MG; Start 06/11/19 at 09:00 Polyethylene Glycol (Miralax) 17 gm DAILY GTB Last administered on 06/15/19at 09:04; Admin Dose 17 GM; Start 06/11/19 at 09:00 Miscellaneous Information 1 ea NOTE XX ; Start 06/10/19 at 14:00 Glucose (Glutose) 15 gm Q15M PRN PO DECREASED GLUCOSE; Start 06/10/19 at 14:00 Glucose (Glutose) 22.5 gm Q15M PRN PO DECREASED GLUCOSE; Start 06/10/19 at 14:00 Dextrose (D50w Syringe) 25 ml Q15M PRN IV DECREASED GLUCOSE; Start 06/10/19 at 14:00 Dextrose (D50w Syringe) 50 ml Q15M PRN IV DECREASED GLUCOSE; Start 06/10/19 at 14:00 Glucagon (Glucagen) 1 mg Q15M PRN IM DECREASED GLUCOSE; Start 06/10/19 at 14:00 Glucose (Glutose) 15 gm Q15M PRN BUCCAL DECREASED GLUCOSE; Start 06/10/19 at 14:00 Budesonide (Pulmicort (Neb)) 0.5 mg BID RESP THERAPY HHN Last administered on 06/16/19at 07:43; Admin Dose 0.5 MG; Start 06/10/19 at 20:00 IV Flush (NS 10 ml) 10 ml [id number] PRN IV Line Patency; Start 06/10/19 at 16:00 Fluvoxamine Maleate (Fluvoxamine Maleate) 25 mg DAILY GTB Last administered on 06/16/19at 10:41; Admin Dose 25 MG; Start 06/11/19 at 09:00 Aspirin (Aspirin) 81 mg DAILY PEG Last administered on 06/16/19 10:40; Admin Dose 81 MG; Start 06/11/19 at 09:00 Heparin Sodium (Porcine) (Heparin (5000 Units/1ml)) 5,000 unit Q8 SC Last administered on 06/14/19 06:01; Admin Dose 5,000 UNIT; Start 06/11/19 at 14:00; Status Hold Potassium Chloride/Dextrose 1,000 ml @ 70 mls/hr [id number] IV Last administered on 06/15/19 23:47; Admin Dose 70 MLS/HR; Start 06/11/19 at 14:30 Ipratropium [place] (Atrovent 0.02% (Neb)) 0.5 mg Q4H RESP THERAPY PRN HHN SHORTNESS OF BREATH; Start 06/12/19 at 10:00 Levalbuterol (Xopenex Neb) 1.25 mg Q4H RESP THERAPY PRN HHN shortness of breath; Start 06/12/19 at 10:00 Fentanyl 100 ml @ 2.5 mls/hr TITRATE IV Last administered on 06/16/19 11:16; Admin Dose 10 MLS/HR; Start 06/12/19 at 10:00 Phenylephrine HCl 80 mg/Dextrose 250 ml @ 18.75 mls/ hr TITRATE IV Last a dministered on 06/16/19 08:39; Admin Dose 15.1 MLS/HR; Start 06/12/19 at 14:00 Levalbuterol (Xopenex Hfa) 4 puff Q6H RESP THERAPY INH Last administered on 06/16/19 07:43; Admin Dose 4 PUFF; Start 06/12/19 at 20:00 Ipratropium [place] (Atrovent Hfa) 4 puff Q6H RESP THERAPY INH Last administered on 06/16/19 07:43; Admin Dose 4 PUFF; Start 06/12/19 at 20:00 Norepinephrine 32 mg/Dextrose 250 ml @ 0.47 mls/hr TITRATE IV Last administered on 06/14/19 23:49; Admin Dose 5.06 MLS/HR; Start 06/13/19 at 08:00 Meropenem/Sodium Chloride 50 ml @ 100 mls/hr Q12 IVPB Last administered on 06/16/19 10:47; Admin Dose 100 MLS/HR; Start 06/13/19 at 14:00 Hydrocortisone (Solu-Cortef) 100 mg Q8 IV Last administered on 06/16/19 06:20; Admin Dose 100 MG; Start 06/14/19 at 10:00 Docusate Sodium (Colace Liquid Cup) 100 mg BID GTB Last administered on 06/16/19 10:40; Admin Dose 100 MG; Start 06/14/19 at 12:30 Diagnostic Test (Pha) (Accu-Chek) 1 ea Q1H XX Last administered on 06/16/19 11:29; Admin Dose 1 EA; Start 06/15/19 at 09:00 Insulin Human Regular 100 unit/ Sodium Chloride 100 ml @ 0 mls/hr PER PROTOCOL IV Last administered on 06/15/19 09:27; Admin Dose 0 MLS/HR; Start 06/15/19 at 09:30 Miscellaneous Information (* Miscellaneous Pharmacy Order) Treatment of Hypoglycemia: 1.BG 51... Per protocol XX ; Start 06/15/19 at 09:00 Dextrose (D50w Syringe) 25 ml Q15M PRN IV .DECREASED GLUCOSE; Start 06/15/19 at 09:00 Dextrose (D50w Syringe) 50 ml Q15M PRN IV .DECREASED GLUCOSE; Start 06/15/19 at 09:00 Potassium Chloride 50 ml @ 50 mls/hr K PROTOCOL PRN IVPB PENDING LAB VALUE; Start 06/15/19 at 09:00 Vancomycin/Sodium Chloride 250 ml @ 125 mls/hr Q24H IVPB ; Start 06/16/19 at 12:00 GERMAN FELIX MD Jun 16, 2019 11:41
[2019-06-16] MEDS ORDERED: INSULIN GLARGINE [LANTus] (100 UNITS/ML) SYG SC ONE (12:30)
[2019-06-16] MEDS: VANCOMYCIN 750 MG (PMX) 250 ML IVPB SCH (13:00)
--- NOTE | 2019-06-16 14:11 | PN ---
DATE: 06/16/2019 SUBJECTIVE: Patient remains on Levophed drip, intubated, sedated, in no distress. Tube feeding on h old. The patient has G-tube connected to suction. VITAL SIGNS: She had been afebrile overnight. WBC 18.6, H and H 9.3 and 28.1, platelets 50, neutrophils 95.8, BUN 37, creatinine 0.85. Urine culture on 06/10/2019 grew Klebsiella pneumoniae, ESBL. Sputum culture growing MRSA and Candid a albicans. INDWELLINGS: The endotracheal tube, G-tube, Dial catheter, PICC. ANTIMICROBIALS: The patient is on: 1. IV vancomycin. 2. Meropenem. PHYSICAL EXAMINATION: GENERAL: This is a chronically ill-appearing, elderly woman who is in no distress. HEENT: Head atraumatic, normocephalic. NECK: Supple, trachea midline. CHEST: Rise symmetrical. Breath sounds diminished to bases. HEART: S1, S2. ABDOMEN: Distended, soft. Bowel tones hypoactive. EXTREMITIES: Without cyanosis. Trace edema. ASSESSMENT: 1. Severe sepsis with shock. 2. Healthcare-associated pneumonia. 3. Klebsiella extended-spectrum beta-lactamase urinary tract infection. 4. Non-ST elevation myocardial infarction. 5. Status post rapid atrial fibrillation. 6. Diabetes. PLAN: The patient remains hemodynamically unstable. We will add antifungal coverage. Continue her on current antibiotics. Dictated By: JACKIE CORTÉS [employer] MACHINE OPERATOR for LARISSA FARAH MD NI/NTS Conf#: [id number] DID#: [id number] CC: MALINI GOMEZ MD;*EndCC*
[2019-06-16] MEDS: D5W + KCL 20 MEQ 1,000 ML IV SCH (16:13)
[2019-06-16] MEDS: INSULIN ASPART [NOVOLOG] 3 ML PEN SC SCH (20:12)
[2019-06-16] MEDS: ATORVASTATIN 20 MG TAB GTB SCH (21:03)
[2019-06-17] VITALS (83 sets, daily range): BP systolic 83–171; BP diastolic 54–96; PULSE 66–97; RESP 9–38
[2019-06-17] MEDS: INSULIN ASPART [NOVOLOG] 3 ML PEN SC SCH ×6 (01:12→20:54)
[2019-06-17] MEDS: IPRATROPIUM (HFA) 12.9 GM INHALER INH SCH ×4 (01:26→19:30)
[2019-06-17] MEDS: LEVALBUTEROL (HFA) 15 GM INHALER INH SCH ×4 (01:26→19:30)
[2019-06-17] MEDS: HYDROCORTISONE 100 MG INJ IV SCH ×3 (06:07→21:30)
[2019-06-17] MEDS ORDERED: INSULIN GLARGINE [LANTus] (100 UNITS/ML) SYG SC SCH (08:00)
[2019-06-17] MEDS: BUDESONIDE (NEB) 0.5MG/2ML AMP HHN SCH ×2 (08:25→19:29)
--- NOTE | 2019-06-17 08:59 | CONS ---
Assessment/Plan Assessment/Plan Assessment/Plan (Daily) 1. acute Hypernatremia due to severe dehydration - Improving 2. acute Hyperkalemia due to FLOYD - Resolved 3. acute kidney injury on CKD III due to ATN from sepsis and Prerenal azotemia 4 . Septic shock due to multifocal PNA 5. Acute hypoxic respiratory failure due to PNA and Septic shock - Failed BIPAP- Intubated on 06/12/19 6. H/O severe dementia 7. H/O HTN 8. H/O HL 9. SNF resident 10. acute on chronic encephalopathy 11 h/o Dysphagia S/p G tube placement 12. Hypocalcemia with Ca 6.7 Plan: BUN/Cr 33/0.78 , other electrolytes normal toda y, IVF stopped,pt is on Low dose levophed 5 mcg currenlty on IV abx meropenem , Renally dose all abx and monitor electrolytes Ventilator Management as per pulmonary Full Code, as per Son Ca 7.6 today, ionised Ca 1.0- will give calcium gluconate if Ca drops lwer than 7.0 will follow up Consultation Date/Type/Reason Admit Date/Time Jun 10, 2019 at 12:38 Initial Consult Date 06/11/19 Type of Consult NEPHROLOGY Requesting Provider: MALINI GOMEZ Date/Time of Note DATE: 06/17/19 TIME: 08:59 Exam/Review of Systems Exam Vitals Vital Signs Date Temp Pulse Resp B/P (MAP) Pulse Ox O2 O2 Flow FiO2 Time Delivery Rate 06/17/19 78 21 97 50 05:10 06/17/19 97.6 109/59 Mechanical 04:00 (76) Ventilator Intake and Output 06/16/19 06/16/19 06/17/19 1515:00 23:00 07:00 IntakeIntake Total 787.00 ml 1111.22 ml 991.38 ml OutputOutput Total 655 ml 243 ml 280 ml BalanceBalance 132.00 ml 868.22 ml 711.38 ml Exam General: intubated on ventilator HEENT: ET tube in place, NG tube Neck: Supple, + JVD , no LAD Respiratory: Bilateral coarse BS+, basilar wheezing Cardiovascular: S1 S2 tachycardia, no murmur Gastrointestinal: soft, NT, ND, Thin abdomen, BS+, + PEG tube in place Neurological: sedated intubated on ventilator Results Result Diagram: 06/17/19 0438 06/17/19 0608 Results 24hrs Laboratory Tests Test 06/16/19 10:54 06/16/19 12:54 06/16/19 14:10 06/16/19 16:28 Bedside Glucose 90 107 127 139 Test 06/16/19 20:05 06/17/19 01:09 06/17/19 04:38 06/17/19 05:03 Bedside Glucose 126 169 223 H White Blood Count 17.0 H Red Blood Count 2.63 L Hemoglobin 8.0 L Hematocrit 24.1 L Mean Corpuscular 91.6 Volume Mean Corpuscular 30.4 Hemoglobin Mean Corpuscular 33.2 Hemoglobin Concent Red Cell 14.7 H Distribution Width Platelet Count 53 L Mean Platelet Volume 12.5 H Immature 0.600 H Granulocytes % Neutrophils % 95.0 H Lymphocytes % 2.4 L Monocytes % 1.8 Eosinophils % 0.0 Basophils % 0.2 Nucleated Red Blood 0.0 Cells % Immature 0.110 H Granulocytes # Neutrophils # 16.2 H Lymphocytes # 0.4 L Monocytes # 0.3 Eosinophils # 0.0 Basophils # 0.0 Nucleated Red Blood 0.0 Cells # Test 06/17/19 06:08 Sodium Level 139 Potassium Level 4.4 Chloride Level 104 Carbon Dioxide Level 29 Anion Gap 6 Blood Urea Nitrogen 33 H Creatinine 0.78 Est Glomerular Filtrat Rate mL/min Glucose Level 238 #H Calcium Level 7.6 L Phosphorus Level 3.8 Magnesium Level 2.3 Medications Medication Current Medications IV Flush (NS 3 ml) 3 ml PER PROTOCOL IV ; Start 06/10/19 at 12:00 Ondansetron HCl (Zofran Inj) 4 mg Q6H PRN IV NAUSEA/VOMITING; Start 06/10/19 at 12:00 Acetaminophen (Tylenol Tab) 650 mg Q6H PRN PO .PAIN 1-3 OR TEMP Last administered on 06/13/19at 15:52; Admin Dose 650 MG; Start 06/10/19 at 12:00 Acetaminophen/ Hydrocodone Bitart ([place] (5/325)) 1 tab Q6H PRN PO .PAIN 4-6; Start 06/10/19 at 12:00 Morphine Sulfate (morphine) 2 mg Q4H PRN IV .PAIN 7-10 Last administered on 06/15/19at 16:57; Admin Dose 2 MG; Start 06/10/19 at 12:00 Vancomycin HCl (Vanco Iv Per Pharmacy) VANCOMYCIN PER PHARMACY PER PROTOCOL XX ; Start 06/10/19 at 12:30 Amiodarone HCl (Cordarone) 100 mg DAILY GTB Last administered on 06/16/19at 10:41; Admin Dose 100 MG; Start 06/11/19 at 09:00 Atorvastatin Calcium (Lipitor) 20 mg QHS GTB Last administered on 06/16/19at 21:03; Admin Dose 20 MG; Start 06/10/19 at 21:00 Levetiracetam (Keppra Liquid) 500 mg BID GTB Last administered on 06/16/19at 21:02; Admin Dose 500 MG; Start 06/10/19 at 21:00 Olanzapine (Zyprexa) 5 mg DAILY GTB Last administered on 06/16/19at 10:47; Admin Dose 5 MG; Start 06/11/19 at 09:00 Polyethylene Glycol (Miralax) 17 gm DAILY GTB Last administered on 06/15/19at 09:04; Admin Dose 17 GM; Start 06/11/19 at 09:00 Miscellaneous Information 1 ea NOTE XX ; Start 06/10/19 at 14:00 Glucose (Glutose) 15 gm Q15M PRN PO DECREASED GLUCOSE; Start 06/10/19 at 14:00 Glucose (Glutose) 22.5 gm Q15M PRN PO DECREASED GLUCOSE; Start 06/10/19 at 14:00 Dextrose (D50w Syringe) 25 ml Q15M PRN IV DECREASED GLUCOSE; Start 06/10/19 at 14:00 Dextrose (D50w Syringe) 50 ml Q15M PRN IV DECREASED GLUCOSE; Start 06/10/19 at 14:00 Glucagon (Glucagen) 1 mg Q15M PRN IM DECREASED GLUCOSE; Start 06/10/19 at 14:00 Glucose (Glutose) 15 gm Q15M PRN BUCCAL DECREASED GLUCOSE; Start 06/10/19 at 14:00 Budesonide (Pulmicort (Neb)) 0.5 mg BID RESP THERAPY HHN Last administered on 06/17/19at 08:25; Admin Dose 0.5 MG; Start 06/10/19 at 20:00 IV Flush (NS 10 ml) 10 ml [id number] PRN IV Line Patency; Start 06/10/19 at 16:00 Fluvoxamine Maleate (Fluvoxamine Maleate) 25 mg DAILY GTB Last administered on 06/16/19 10:41; Admin Dose 25 MG; Start 06/11/19 at 09:00 Aspirin (Aspirin) 81 mg DAILY PEG Last administered on 06/16/19 10:40; Admin Dose 81 MG; Start 06/11/19 at 09:00 Heparin Sodium (Porcine) (Heparin (5000 Units/1ml)) 5,000 unit Q8 SC Last administered on 06/14/19 06:01; Admin Dose 5,000 UNIT; Start 06/11/19 at 14:00; Status Hold Potassium Chloride/Dextrose 1,000 ml @ 70 mls/hr [id number] IV Last administered on 06/16/19 16:13; Admin Dose 70 MLS/HR; Start 06/11/19 at 14:30 Ipratropium [place] (Atrovent 0.02% (Neb)) 0.5 mg Q4H RESP THERAPY PRN HHN SHORTNESS OF BREATH; Start 06/12/19 at 10:00 Levalbuterol (Xopenex Neb) 1.25 mg Q4H RESP THERAPY PRN HHN shortness of breath; Start 06/12/19 at 10:00 Fentanyl 100 ml @ 2.5 mls/hr TITRATE IV Last administered on 06/16/19 20:11; Admin Dose 7.5 MLS/HR; Start 06/12/19 at 10:00 Phenylephrine HCl 80 mg/Dextrose 250 ml @ 18.75 mls/ hr TITRATE IV Last administered on 06/16/19 08:39; Admin Dose 15.1 MLS/HR; Start 06/12/19 at 14:00 Levalbuterol (Xopenex Hfa) 4 puff Q6H RESP THERAPY INH Last administered on 06/17/19 08:25; Admin Dose 4 PUFF; Start 06/12/19 at 20:00 Ipratropium [place] (Atrovent Hfa) 4 puff Q6H RESP THERAPY INH Last administered on 06/17/19 08:25; Admin Dose 4 PUFF; Start 06/12/19 at 20:00 Norepinephrine 32 mg/Dextrose 250 ml @ 0.47 mls/hr TITRATE IV Last administered on 06/14/19at 23:49; Admin Dose 5.06 MLS/HR; Start 06/13/19 at 08:00 Meropenem/Sodium Chloride 50 ml @ 100 mls/hr Q12 IVPB Last administered on 06/16/19at 21:02; Admin Dose 100 MLS/HR; Start 06/13/19 at 14:00 Hydrocortisone (Solu-Cortef) 100 mg Q8 IV Last administered on 06/17/19at 06:07; Admin Dose 100 MG; Start 06/14/19 at 10:00 Docusate Sodium (Colace Liquid Cup) 100 mg BID GTB Last administered on 06/16/19at 21:03; Admin Dose 100 MG; Start 06/14/19 at 12:30 Miscellaneous Information (* Miscellaneous Pharmacy Order) Treatment of Hypoglycemia: 1.BG 51... Per protocol XX ; Start 06/15/19 at 09:00 Dextrose (D50w Syringe) 25 ml Q15M PRN IV .DECREASED GLUCOSE; Start 06/15/19 at 09:00 Dextrose (D50w Syringe) 50 ml Q15M PRN IV .DECREASED GLUCOSE; Start 06/15/19 at 09:00 Potassium Chloride 50 ml @ 50 mls/hr K PROTOCOL PRN IVPB PENDING LAB VALUE; Start 06/15/19 at 09:00 Vancomycin/Sodium Chloride 250 ml @ 125 mls/hr Q24H IVPB Last administered on 06/16/19at 13:00; Admin Dose 125 MLS/HR; Start 06/16/19 at 12:00 Insulin Glargine (Lantus) 10 units DAILY@0800 SC ; Start 06/17/19 at 08:00 Insulin Aspart (Novolog Insulin Pen) NOVOLOG *MILD* ALGORI... Q4 SC Last administered on 06/17/19at 05:07; Admin Dose 3 UNIT; Start 06/16/19 at 21:00 GERMAN FELIX MD Jun 17, 2019 08:59
[2019-06-17] MEDS: DOCUSATE SODIUM 10 MG/ML (10ML CUP) GTB SCH ×2 (09:00→21:29)
[2019-06-17] MEDS: POLYETHYLENE GLYCOL 17 GM PACKET GTB SCH (09:00)
[2019-06-17] MEDS: MEROPENEM 1 GM/50ML(PMX) 50 ML IVPB SCH ×2 (09:06→21:29)
[2019-06-17] MEDS: FLUVOXAMINE MALEATE 25 MG TABLET GTB SCH (09:06)
[2019-06-17] MEDS: LEVETIRACETAM (100 MG/ML) 5ML CUP GTB SCH ×2 (09:06→21:29)
[2019-06-17] MEDS: OLANZAPINE 5 MG TAB GTB SCH (09:06)
[2019-06-17] MEDS: ASPIRIN 81 MG TAB PEG SCH (09:07)
[2019-06-17] MEDS: AMIODARONE 200 MG TAB GTB SCH (09:07)
--- NOTE | 2019-06-17 09:14 | PN ---
Date/Time of Note Date/Time of Note DATE: 06/17/19 TIME: 09:14 Assessment/Plan VTE Prophylaxis Risk score (from Nsg)>0 risk: 11 SCD applied (from Nsg): Yes Lines/Catheters IV Catheter Type (from Nrsg): PICC Line Urinary Cath still in place: Yes Assessment/Plan Result Diagram: 06/17/19 0438 06/17/19 0608 Results 24hrs Laboratory Tests Test 06/16/19 10:54 06/16/19 12:54 06/16/19 14:10 06/16/19 16:28 Bedside Glucose 90 107 127 139 Test 06/16/19 20:05 06/17/19 01:09 06/17/19 04:38 06/17/19 05:03 Bedside Glucose 126 169 223 H White Blood Count 17.0 H Red Blood Count 2.63 L Hemoglobin 8.0 L Hematocrit 24.1 L Mean Corpuscular 91.6 Volume Mean Corpuscular 30.4 Hemoglobin Mean Corpuscular 33.2 Hemoglobin Concent Red Cell 14.7 H Distribution Width Platelet Count 53 L Mean Platelet Volume 12.5 H Immature 0.600 H Granulocytes % Neutrophils % 95.0 H Lymphocytes % 2.4 L Monocytes % 1.8 Eosinophils % 0.0 Basophils % 0.2 Nucleated Red Blood 0.0 Cells % Immature 0.110 H Granulocytes # Neutrophils # 16.2 H Lymphocytes # 0.4 L Monocytes # 0.3 Eosinophils # 0.0 Basophils # 0.0 Nucleated Red Blood 0.0 Cells # Test 06/17/19 06:08 06/17/19 09:05 Sodium Level 139 Potassium Level 4.4 Chloride Level 104 Carbon Dioxide Level 29 Anion Gap 6 Blood Urea Nitrogen 33 H Creatinine 0.78 Est Glomerular Filtrat Rate mL/min Glucose Level 238 #H Calcium Level 7.6 L Phosphorus Level 3.8 Magnesium Level 2.3 Bedside Glucose 261 H Exam/Review of Systems Exam Vitals Vital Signs Date Temp Pulse Resp B/P (MAP) Pulse Ox O2 O2 Flow FiO2 Time Delivery Rate 06/17/19 78 21 97 50 05:10 06/17/19 97.6 109/59 Mechanical 04:00 (76) Ventilator Intake and Output 06/16/19 06/16/19 06/17/19 1515:00 23:00 07:00 IntakeIntake Total 787.00 ml 1111.22 ml 991.38 ml OutputOutput Total 655 ml 243 ml 280 ml BalanceBalance 132.00 ml 868.22 ml 711.38 ml Results Results 24hrs Laboratory Tests Test 06/16/19 10:54 06/16/19 12:54 06/16/19 14:10 06/16/19 16:28 Bedside Glucose 90 107 127 139 Test 06/16/19 20:05 06/17/19 01:09 06/17/19 04:38 06/17/19 05:03 Bedside Glucose 126 169 223 H White Blood Count 17.0 H Red Blood Count 2.63 L Hemoglobin 8.0 L Hematocrit 24.1 L Mean Corpuscular 91.6 Volume Mean Corpuscular 30.4 Hemoglobin Mean Corpuscular 33.2 Hemoglobin Concent Red Cell 14.7 H Distribution Width Platelet Count 53 L Mean Platelet Volume 12.5 H Immature 0.600 H Granulocytes % Neutrophils % 95.0 H Lymphocytes % 2.4 L Monocytes % 1.8 Eosinophils % 0.0 Basophils % 0.2 Nucleated Red Blood 0.0 Cells % Immature 0.110 H Granulocytes # Neutrophils # 16.2 H Lymphocytes # 0.4 L Monocytes # 0.3 Eosinophils # 0.0 Basophils # 0.0 Nucleated Red Blood 0.0 Cells # Test 06/17/19 06:08 06/17/19 09:05 Sodium Level 139 Potassium Level 4.4 Chloride Level 104 Carbon Dioxide Level 29 Anion Gap 6 Blood Urea Nitrogen 33 H Creatinine 0.78 Est Glomerular Filtrat Rate mL/min Glucose Level 238 #H Calcium Level 7.6 L Phosphorus Level 3.8 Magnesium Level 2.3 Bedside Glucose 261 H Medications Medication Current Medications IV Flush (NS 3 ml) 3 ml PER PROTOCOL IV ; Start 06/10/19 at 12:00 Ondansetron HCl (Zofran Inj) 4 mg Q6H PRN IV NAUSEA/VOMITING; Start 06/10/19 at 12:00 Acetaminophen (Tylenol Tab) 650 mg Q6H PRN PO .PAIN 1-3 OR TEMP Last administered on 06/13/19at 15:52; Admin Dose 650 MG; Start 06/10/19 at 12:00 Acetaminophen/ Hydrocodone Bitart ([place] (5/325)) 1 tab Q6H PRN PO .PAIN 4-6; Start 06/10/19 at 12:00 Morphine Sulfate (morphine) 2 mg Q4H PRN IV .PAIN 7-10 Last administered on 06/15/19at 16:57; Admin Dose 2 MG; Start 06/10/19 at 12:00 Vancomycin HCl (Vanco Iv Per Pharmacy) VANCOMYCIN PER PHARMACY PER PROTOCOL XX ; Start 06/10/19 at 12:30 Amiodarone HCl (Cordarone) 100 mg DAILY GTB Last administered on 06/16/19at 10:41; Admin Dose 100 MG; Start 06/11/19 at 09:00 Atorvastatin Calcium (Lipitor) 20 mg QHS GTB Last administered on 06/16/19at 21:03; Admin Dose 20 MG; Start 06/10/19 at 21:00 Levetiracetam (Keppra Liquid) 500 mg BID GTB Last administered on 06/16/19at 21:02; Admin Dose 500 MG; Start 06/10/19 at 21:00 Olanzapine (Zyprexa) 5 mg DAILY GTB Last administered on 06/16/19at 10:47; Admin Dose 5 MG; Start 06/11/19 at 09:00 Polyethylene Glycol (Miralax) 17 gm DAILY GTB Last administered on 06/15/19at 09:04; Admin Dose 17 GM; Start 06/11/19 at 09:00 Miscellaneous Information 1 ea NOTE XX ; Start 06/10/19 at 14:00 Glucose (Glutose) 15 gm Q15M PRN PO DECREASED GLUCOSE; Start 06/10/19 at 14:00 Glucose (Glutose) 22.5 gm Q15M PRN PO DECREASED GLUCOSE; Start 06/10/19 at 14:00 Dextrose (D50w Syringe) 25 ml Q15M PRN IV DECREASED GLUCOSE; Start 06/10/19 at 14:00 Dextrose (D50w Syringe) 50 ml Q15M PRN IV DECREASED GLUCOSE; Start 06/10/19 at 14:00 Glucagon (Glucagen) 1 mg Q15M PRN IM DECREASED GLUCOSE; Start 06/10/19 at 14:00 Glucose (Glutose) 15 gm Q15M PRN BUCCAL DECREASED GLUCOSE; Start 06/10/19 at 14:00 Budesonide (Pulmicort (Neb)) 0.5 mg BID RESP THERAPY HHN Last administered on 06/17/19at 08:25; Admin Dose 0.5 MG; Start 06/10/19 at 20:00 IV Flush (NS 10 ml) 10 ml [id number] PRN IV Line Patency; Start 06/10/19 at 16:00 Fluvoxamine Maleate (Fluvoxamine Maleate) 25 mg DAILY GTB Last administered on 06/16/19 10:41; Admin Dose 25 MG; Start 06/11/19 at 09:00 Aspirin (Aspirin) 81 mg DAILY PEG Last administered on 06/16/19 10:40; Admin Dose 81 MG; Start 06/11/19 at 09:00 Heparin Sodium (Porcine) (Heparin (5000 Units/1ml)) 5,000 unit Q8 SC Last administered on 06/14/19 06:01; Admin Dose 5,000 UNIT; Start 06/11/19 at 14:00; Status Hold Potassium Chloride/Dextrose 1,000 ml @ 70 mls/hr [id number] IV Last administered on 06/16/19 16:13; Admin Dose 70 MLS/HR; Start 06/11/19 at 14:30 Ipratropium [place] (Atrovent 0.02% (Neb)) 0.5 mg Q4H RESP THERAPY PRN HHN SHORTNESS OF BREATH; Start 06/12/19 at 10:00 Levalbuterol (Xopenex Neb) 1.25 mg Q4H RESP THERAPY PRN HHN shortness of breath; Start 06/12/19 at 10:00 Fentanyl 100 ml @ 2.5 mls/hr TITRATE IV Last administered on 06/16/19 20:11; Admin Dose 7.5 MLS/HR; Start 06/12/19 at 10:00 Phenylephrine HCl 80 mg/Dextrose 250 ml @ 18.75 mls/ hr TITRATE IV Last administered on 06/16/19 08:39; Admin Dose 15.1 MLS/HR; Start 06/12/19 at 14:00 Levalbuterol (Xopenex Hfa) 4 puff Q6H RESP THERAPY INH Last administered on 06/17/19 08:25; Admin Dose 4 PUFF; Start 06/12/19 at 20:00 Ipratropium [place] (Atrovent Hfa) 4 puff Q6H RESP THERAPY INH Last administ ered on 7/23/19at 08:25; Admin Dose 4 PUFF; Start 06/12/19 at 20:00 Norepinephrine 32 mg/Dextrose 250 ml @ 0.47 mls/hr TITRATE IV Last administered on 06/14/19at 23:49; Admin Dose 5.06 MLS/HR; Start 06/13/19 at 08:00 Meropenem/Sodium Chloride 50 ml @ 100 mls/hr Q12 IVPB Last administered on 06/16/19at 21:02; Admin Dose 100 MLS/HR; Start 06/13/19 at 14:00 Hydrocortisone (Solu-Cortef) 100 mg Q8 IV Last administered on 06/17/19 06:07; Admin Dose 100 MG; Start 06/14/19 at 10:00 Docusate Sodium (Colace Liquid Cup) 100 mg BID GTB Last administered on 06/16/19at 21:03; Admin Dose 100 MG; Start 06/14/19 at 12:30 Miscellaneous Information (* Miscellaneous Pharmacy Order) Treatment of Hypoglycemia: 1.BG 51... Per protocol XX ; Start 06/15/19 at 09:00 Dextrose (D50w Syringe) 25 ml Q15M PRN IV .DECREASED GLUCOSE; Start 06/15/19 at 09:00 Dextrose (D50w Syringe) 50 ml Q15M PRN IV .DECREASED GLUCOSE; Start 06/15/19 at 09:00 Potassium Chloride 50 ml @ 50 mls/hr K PROTOCOL PRN IVPB PENDING LAB VALUE; Start 06/15/19 at 09:00 Vancomycin/Sodium Chloride 250 ml @ 125 mls/hr Q24H IVPB Last administered on 06/16/19at 13:00; Admin Dose 125 MLS/HR; Start 06/16/19 at 12:00 Insulin Glargine (Lantus) 10 units DAILY@0800 SC ; Start 06/17/19 at 08:00 Insulin Aspart (Novolog Insulin Pen) NOVOLOG *MILD* ALGORI... Q4 SC Last administered on 06/17/19 05:07; Admin Dose 3 UNIT; Start 06/16/19 at 21:00 SHENG DONNELLY MD Jun 17, 2019 09:14
[2019-06-17] MEDS: FENTAnyl (DRIP) 1000 mcg/100mL 100 ML IV SCH ×2 (09:25→19:06)
--- NOTE | 2019-06-17 09:26 | CONS ---
Assessment/Plan Assessment/Plan Assessment/Plan (Daily) Ventilator setting; assist control of 20, tidal volume 550, PEEP of 10, 50% FiO2. Patient is currently on fentanyl 75 mics per hour, Levophed 5 mics per minute. Assessment and recommendations; 1. Patient admitted for severe bilateral pneumonia and ARDS with improvement in hypoxemia. 2. Persistent hypotension. 3. Possibly DIC. Started on hydrocortisone. 4. History of diabetes. 5. History of seizure disorder. 6. Generalized anasarca. 7. Anemia and thrombocytopenia. Likely secondary to #3. Continue current supportive care. Wean down FiO2 to 40% and PEEP to 5. Decrease tidal volume to 500 mL. Continue other supportive measures. Obtain follow-up chest x-ray in 24 hours. Prognosis appears very poor. 35 minutes of critical care time was spent evaluating patient. Consultation Date/Type/Reason Admit Date/Time Jun 10, 2019 at 12:38 Initial Consult Date 06/11/19 Type of Consult Pulmonary/critical care Patient is an 84-year-old [place] lady who was transferred to to the hospital from care home with hypoxemia. Upon evaluation patient is been diagnosed with sepsis due to pneumonia. Patient has advanced dementia and is unable to give any history by herself whatsoever. Patient however is appearing tachypneic. Past medical history; 1. History of chronic atrial fibrillation. 2. Advanced dementia. 3. History of G-tube placement. 4. History of diabetes. 5. History of hypertension. Medications; reviewed. Allergies; none. Social history, family history, occupational history is are not available. Review of systems; unable to be obtained. General exam; elderly woman, on BiPAP. Noncommunicative. Tachypneic. Requesting Provider: MALINI GOMEZ Date/Time of Note DATE: 06/17/19 TIME: 09:23 24 HR Interval Summary Free Text/Dictation Patient's condition remains critical. Still requiring Levophed for hypotension. General exam; elderly woman, orally intubated, sedated, currently in no distress. Exam/Review of Systems Exam Vitals Vital Signs Date Temp Pulse Resp B/P (MAP) Pulse Ox O2 O2 Flow FiO2 Time Delivery Rate 06/17/19 78 21 97 50 05:10 06/17/19 97.6 109/59 Mechanical 04:00 (76) Ventilator Intake and Output 06/16/19 06/16/19 06/17/19 1515:00 23:00 07:00 IntakeIntake Total 787.00 ml 1111.22 ml 991.38 ml OutputOutput Total 655 ml 243 ml 280 ml BalanceBalance 132.00 ml 868.22 ml 711.38 ml Exam HEENT exam; supple neck, no JVD. No lymphadenopathy. Midline trachea. No thyromegaly. Orally intubated. Patient has fair dentition. Pupils are small bilaterally. No neck masses. Chest exam; diminished breath sounds bilaterally with bilateral crackles. S1-S2 audible, no murmurs. Regular rhythm. Abdomen exam; soft, bowel sounds are audible. G-tube in place. No organomega ly. Extremity exam; 2+ generalized anasarca with patchy ecchymosis. Bilateral knee scars are present. Which appear well-healed. SOFTWARE QUALITY ASSURANCE SPECIALIST exam; patient is sedated. Results Result Diagram: 06/17/19 0438 06/17/19 0608 Results 24hrs Laboratory Tests Test 06/16/19 10:54 06/16/19 12:54 06/16/19 14:10 06/16/19 16:28 Bedside Glucose 90 107 127 139 Test 06/16/19 20:05 06/17/19 01:09 06/17/19 04:38 06/17/19 05:03 Bedside Glucose 126 169 223 H White Blood Count 17.0 H Red Blood Count 2.63 L Hemoglobin 8.0 L Hematocrit 24.1 L Mean Corpuscular 91.6 Volume Mean Corpuscular 30.4 Hemoglobin Mean Corpuscular 33.2 Hemoglobin Concent Red Cell 14.7 H Distribution Width Platelet Count 53 L Mean Platelet Volume 12.5 H Immature 0.600 H Granulocytes % Neutrophils % 95.0 H Lymphocytes % 2.4 L Monocytes % 1.8 Eosinophils % 0.0 Basophils % 0.2 Nucleated Red Blood 0.0 Cells % Immature 0.110 H Granulocytes # Neutrophils # 16.2 H Lymphocytes # 0.4 L Monocytes # 0.3 Eosinophils # 0.0 Basophils # 0.0 Nucleated Red Blood 0.0 Cells # Test 06/17/19 06:08 06/17/19 09:05 Sodium Level 139 Potassium Level 4.4 Chloride Level 104 Carbon Dioxide Level 29 Anion Gap 6 Blood Urea Nitrogen 33 H Creatinine 0.78 Est Glomerular Filtrat Rate mL/min Glucose Level 238 #H Calcium Level 7.6 L Phosphorus Level 3.8 Magnesium Level 2.3 Bedside Glucose 261 H Medications Medication Current Medications IV Flush (NS 3 ml) 3 ml PER PROTOCOL IV ; Start 06/10/19 at 12:00 Ondansetron HCl (Zofran Inj) 4 mg Q6H PRN IV NAUSEA/VOMITING; Start 06/10/19 at 12:00 Acetaminophen (Tylenol Tab) 650 mg Q6H PRN PO .PAIN 1-3 OR TEMP Last administered on 06/13/19at 15:52; Admin Dose 650 MG; Start 06/10/19 at 12:00 Acetaminophen/ Hydrocodone Bitart ([place] (5/325)) 1 tab Q6H PRN PO .PAIN 4-6; Start 06/10/19 at 12:00 Morphine Sulfate (morphine) 2 mg Q4H PRN IV .PAIN 7-10 Last administered on 06/15/19at 16:57; Admin Dose 2 MG; Start 06/10/19 at 12:00 Vancomycin HCl (Vanco Iv Per Pharmacy) VANCOMYCIN PER PHARMACY PER PROTOCOL XX ; Start 06/10/19 at 12:30 Amiodarone HCl (Cordarone) 100 mg DAILY GTB Last administered on 06/16/19at 10:41; Admin Dose 100 MG; Start 06/11/19 at 09:00 Atorvastatin Calcium (Lipitor) 20 mg QHS GTB Last administered on 06/16/19at 21:03; Admin Dose 20 MG; Start 06/10/19 at 21:00 Levetiracetam (Keppra Liquid) 500 mg BID GTB Last administered on 06/16/19at 21:02; Admin Dose 500 MG; Start 06/10/19 at 21:00 Olanzapine (Zyprexa) 5 mg DAILY GTB Last administered on 06/16/19at 10:47; Admin Dose 5 MG; Start 06/11/19 at 09:00 Polyethylene Glycol (Miralax) 17 gm DAILY GTB Last administered on 06/15/19at 09:04; Admin Dose 17 GM; Start 06/11/19 at 09:00 Miscellaneous Information 1 ea NOTE XX ; Start 06/10/19 at 14:00 Glucose (Glutose) 15 gm Q15M PRN PO DECREASED GLUCOSE; Start 06/10/19 at 14:00 Glucose (Glutose) 22.5 gm Q15M PRN PO DECREASED GLUCOSE; Start 06/10/19 at 14:00 Dextrose (D50w Syringe) 25 ml Q15M PRN IV DECREASED GLUCOSE; Start 06/10/19 at 14:00 Dextrose (D50w Syringe) 50 ml Q15M PRN IV DECREASED GLUCOSE; Start 06/10/19 at 14:00 Glucagon (Glucagen) 1 mg Q15M PRN IM DECREASED GLUCOSE; Start 06/10/19 at 14:00 Glucose (Glutose) 15 gm Q15M PRN BUCCAL DECREASED GLUCOSE; Start 06/10/19 at 14:00 Budesonide (Pulmicort (Neb)) 0.5 mg BID RESP THERAPY HHN Last administered on 06/17/19at 08:25; Admin Dose 0.5 MG; Start 06/10/19 at 20:00 IV Flush (NS 10 ml) 10 ml [id number] PRN IV Line Patency; Start 06/10/19 at 16:00 Fluvoxamine Maleate (Fluvoxamine Maleate) 25 mg DAILY GTB Last administered on 06/16/19at 10:41; Admin Dose 25 MG; Start 06/11/19 at 09:00 Aspirin (Aspirin) 81 mg DAILY PEG Last administered on 06/16/19at 10:40; Admin Dose 81 MG; Start 06/11/19 at 09:00 Heparin Sodium (Porcine) (Heparin (5000 Units/1ml)) 5,000 unit Q8 SC Last administered on 06/14/19at 06:01; Admin Dose 5,000 UNIT; Start 06/11/19 at 14:00; Status Hold Ipratropium [place] (Atrovent 0.02% (Neb)) 0.5 mg Q4H RESP THERAPY PRN HHN JEFF RTNESS OF BREATH; Start 06/12/19 at 10:00 Levalbuterol (Xopenex Neb) 1.25 mg Q4H RESP THERAPY PRN HHN shortness of breath; Start 06/12/19 at 10:00 Fentanyl 100 ml @ 2.5 mls/hr TITRATE IV Last administered on 06/16/19at 20:11; Admin Dose 7.5 MLS/HR; Start 06/12/19 at 10:00 Phenylephrine HCl 80 mg/Dextrose 250 ml @ 18.75 mls/ hr TITRATE IV Last administered on 06/16/19 08:39; Admin Dose 15.1 MLS/HR; Start 06/12/19 at 14:00 Levalbuterol (Xopenex Hfa) 4 puff Q6H RESP THERAPY INH Last administered on 06/17/19 08:25; Admin Dose 4 PUFF; Start 06/12/19 at 20:00 Ipratropium [place] (Atrovent Hfa) 4 puff Q6H RESP THERAPY INH Last administered on 06/17/19 08:25; Admin Dose 4 PUFF; Start 06/12/19 at 20:00 Norepinephrine 32 mg/Dextrose 250 ml @ 0.47 mls/hr TITRATE IV Last administered on 06/14/19 23:49; Admin Dose 5.06 MLS/HR; Start 06/13/19 at 08:00 Meropenem/Sodium Chloride 50 ml @ 100 mls/hr Q12 IVPB Last administered on 06/16/19 21:02; Admin Dose 100 MLS/HR; Start 06/13/19 at 14:00 Hydrocortisone (Solu-Cortef) 100 mg Q8 IV Last administered on 06/17/19 06:07; Admin Dose 100 MG; Start 06/14/19 at 10:00 Docusate Sodium (Colace Liquid Cup) 100 mg BID GTB Last administered on 06/16/19 21:03; Admin Dose 100 MG; Start 06/14/19 at 12:30 Miscellaneous Information (* Miscellaneous Pharmacy Order) Treatment of Hypoglycemia: 1.BG 51... Per protocol XX ; Start 06/15/19 at 09:00 Dextrose (D50w Syringe) 25 ml Q15M PRN IV .DECREASED GLUCOSE; Start 06/15/19 at 09:00 Dextrose (D50w Syringe) 50 ml Q15M PRN IV .DECREASED GLUCOSE; Start 06/15/19 at 09:00 Potassium Chloride 50 ml @ 50 mls/hr K PROTOCOL PRN IVPB PENDING LAB VALUE; Start 06/15/19 at 09:00 Vancomycin/Sodium Chloride 250 ml @ 125 mls/hr Q24H IVPB Last administered on 06/16/19at 13:00; Admin Dose 125 MLS/HR; Start 06/16/19 at 12:00 Insulin Aspart (Novolog Insulin Pen) NOVOLOG *MILD* ALGORI... Q4 SC Last administered on 06/17/19at 05:07; Admin Dose 3 UNIT; Start 06/16/19 at 21:00 Insulin Glargine (Lantus) 15 units DAILY@0800 SC ; Start 06/18/19 at 08:00 Insulin Glargine (Lantus) 5 units ONCE ONCE SC ; Start 06/17/19 at 10:30; Stop 06/17/19 at 10:31 CHARAN LAUREANO Jun 17, 2019 09:26
[2019-06-17] MEDS ORDERED: INSULIN GLARGINE [LANTus] (100 UNITS/ML) SYG SC ONE (10:30)
[2019-06-17] MEDS: BALSAM PERU/CASTOR OIL 60 GM TUBE TOP SCH (11:10)
[2019-06-17] MEDS: VANCOMYCIN 750 MG (PMX) 250 ML IVPB SCH (12:02)
[2019-06-17] MEDS ORDERED: CASPOFUNGIN 50 MG in SOD CHLORIDE 0.9% 250 ML IVPB SCH (13:00)
--- NOTE | 2019-06-17 13:03 | PN ---
DATE: 06/17/2019 SUBJECTIVE: The patient remains intubated on Levophed at 5 mcg per minute. No fevers overnight. VITAL SIGNS: WBC 17, H and H 8 and 24.1, platelets 53, neutrophils 95, BUN 33, creatinine 0.78. DIAGNOSTICS: Chest x-ray this morning revealed improving interstitial edema. INDWELLINGS: Endotracheal tube, PEG, Dial, PICC line. ANTIMICROBIALS: The patient remains on: 1. IV vancomycin. 2. Merrem. PHYSICAL EXAMINATION: GENERAL: Chronically ill-appearing, elderly woman who is in no distress. HEENT: Head atraumatic, normocephalic. NECK: Supple. CHEST: Rise symmetrical. Breath sounds diminished. HEART: S1, S2. ABDOMEN: Distended, soft. Bowel tones are hypoactive. EXTREMITIES: With edema, cool to touch. SKIN: The patient has anasarca. ASSESSMENT: 1. Septic shock. 2. Healthcare-associated pneumonia, possibly aspiration. 3. Klebsiella extended-spectrum beta-lactamase urinary tract infection. 4. Non-ST elevation myocardial infarction. 5. Status post rapid atrial fibrillation. 6. Acute kidney injury on chronic kidney disease. 7. Diabetes. PLAN: The patient is doing better in terms that she is only on Levophed drip and Philippe-Synephrine was discontinued. She is now DNR status. Pulmonary is on case. We will continue her on current antibio tics. Continue weaning trials as per pulmonary. Add Cancidas to cover Bridget growing in her sputum . Dictated By: JACKIE CORTÉS COPY EDITOR for LARISSA FARAH MD NI/NTS Conf#: [id number] DID#: [id number] CC: MALINI GOMEZ MD;*EndCC*
[2019-06-17] MEDS ORDERED: CASPOFUNGIN 70 MG in SOD CHLORIDE 0.9% 250 ML IVPB ONE (13:30)
--- NOTE | 2019-06-17 15:25 | PN ---
Date/Time of Note Date/Time of Note DATE: 06/17/19 TIME: 15:16 Assessment/Plan VTE Prophylaxis Risk score (from Nsg)>0 risk: 11 SCD applied (from Nsg): Yes Pharmacological prophylaxis: heparin Lines/Catheters IV Catheter Type (from Nrsg): PICC Line Central line still needed: Yes Urinary Cath still in place: Yes Reason Cath still needed: terminal illness/intractable pain Assessment/Plan Assessment/Plan 1. Acute hypoxic respiratory failure, ARDS secondary to sepsis - weaning down vent setting as tolerated - Pulmonology on board and appreciate recommendations. Consistent with ARDS and managing vent settings. - Continue IV antibiotics 2. Multifocal pneumonia - ID on board and appreciate recommendations - Continue current antibiotics - Repeat CXR this am shows improvement of interstitial edema 3. Septic shock versus severe sepsis - continue on pressor support with MAP >65. Will wean as tolerated. Currently on 1 pressor 4. Atrial fibrillation with RVR - stable - back in sinus rhythm - Cardiology consultation appreciated 5. Non-ST elevated IA - Cardiology consultation appreciated and will continue current medications - Very mild elevation - continue aspirin and statin 6. Hypocalcemia- resolved 7. Thrombocytopenia - Very likely due to septic shock - Fibrinogen is elevated, unlikely DIC - Hold heparin for now 8. Chronic dysphasia - Patient has PEG tube 9. Diabetes mellitus - will adjust Lantus dose given persistently elevated glucose since started on TF 10. Chronic encephalopathy - CT of the brain initially showed alarming findings however there appears to be a mixup with patient's name, patient's actual name is Trey Roberts, bright [id number]. Neurosurgeon was initially consulted for possible brain bleed and other findings however when comparing to the patient's actual chart in 2013, neurosurgeon reviewed the CT and MRI and found a similar findings with no acute emergent change. - Monitor closely, patient appears to be at baseline 11. Dyslipidemia - Continue home meds 12. Mood disorder - Continue home meds 13. Chronic kidney disease - resolved - nephrology consultation appreciated 14. Failure to thrive - now DNR per families request 15. Disposition - Continue weaning as tolerated from vent and pressor support - Discussed with family and unfamiliar with Dr. Crockett and has no tied to [facility]. Family does not want patient transferred and if improves, will want her transferred back to same convalescent home >40 minutes of critical care spent with patient and son at bedside Result Diagram: 06/17/19 0438 06/17/19 0608 Results 24hrs Laboratory Tests Test 06/16/19 16:28 06/16/19 20:05 06/17/19 01:09 06/17/19 04:38 Bedside Glucose 139 126 169 White Blood Count 17.0 H Red Blood Count 2.63 L Hemoglobin 8.0 L Hematocrit 24.1 L Mean Corpuscular 91.6 Volume Mean Corpuscular 30.4 Hemoglobin Mean Corpuscular 33.2 Hemoglobin Concent Red Cell 14.7 H Distribution Width Platelet Count 53 L Mean Platelet Volume 12.5 H Immature 0.600 H Granulocytes % Neutrophils % 95.0 H Lymphocytes % 2.4 L Monocytes % 1.8 Eosinophils % 0.0 Basophils % 0.2 Nucleated Red Blood 0.0 Cells % Immature 0.110 H Granulocytes # Neutrophils # 16.2 H Lymphocytes # 0.4 L Monocytes # 0.3 Eosinophils # 0.0 Basophils # 0.0 Nucleated Red Blood 0.0 Cells # Test 06/17/19 05:03 06/17/19 06:08 06/17/19 09:05 06/17/19 12:00 Bedside Glucose 223 H 261 H 175 Sodium Level 139 Potassium Level 4.4 Chloride Level 104 Carbon Dioxide Level 29 Anion Gap 6 Blood Urea Nitrogen 33 H Creatinine 0.78 Est Glomerular Filtrat Rate mL/min Glucose Level 238 #H Calcium Level 7.6 L Phosphorus Level 3.8 Magnesium Level 2.3 Subjective 24 Hr Interval Summary Free Text/Dictation Patient is opening her eyes and tracking this am. No acute distress noted. Off 1 pressor Exam/Review of Systems Exam Vitals Vital Signs Date Temp Pulse Resp B/P (MAP) Pulse Ox O2 O2 Flow FiO2 Time Delivery Rate 06/17/19 85 31 112/66 94 Mechanical 15:00 (81) Ventilator 06/17/19 97.9 12:00 06/17/19 50 11:10 Intake and Output 06/16/19 06/16/19 06/17/19 1515:00 23:00 07:00 IntakeIntake Total 787.00 ml 1111.22 ml 1091.22 ml OutputOutput Total 655 ml 243 ml 280 ml BalanceBalance 132.00 ml 868.22 ml 811.22 ml Exam General: Patient is intubated. opening eyes and tracking Head: Normocephalic atraumatic Eyes: EOMI, pupils reactive to light Neck: Supple, nontender, midline Respiratory: Coarse to auscultation bilaterally. no wheezing Cardiovascular: Regular rate and rhythm, no obvious murmurs Gastrointestinal: non-tender to palpation, bowel sounds heard. PEG in place Ext: bilateral lower extremity pitting edema Results Results 24hrs Laboratory Tests Test 06/16/19 16:28 06/16/19 20:05 06/17/19 01:09 06/17/19 04:38 Bedside Glucose 139 126 169 White Blood Count 17.0 H Red Blood Count 2.63 L Hemoglobin 8.0 L Hematocrit 24.1 L Mean Corpuscular 91.6 Volume Mean Corpuscular 30.4 Hemoglobin Mean Corpuscular 33.2 Hemoglobin Concent Red Cell 14.7 H Distribution Width Platelet Count 53 L Mean Platelet Volume 12.5 H Immature 0.600 H Granulocytes % Neutrophils % 95.0 H Lymphocytes % 2.4 L Monocytes % 1.8 Eosinophils % 0.0 Basophils % 0.2 Nucleated Red Blood 0.0 Cells % Immature 0.110 H Granulocytes # Neutrophils # 16.2 H Lymphocytes # 0.4 L Monocytes # 0.3 Eosinophils # 0.0 Basophils # 0.0 Nucleated Red Blood 0.0 Cells # Test 06/17/19 05:03 06/17/19 06:08 06/17/19 09:05 06/17/19 12:00 Bedside Glucose 223 H 261 H 175 Sodium Level 139 Potassium Level 4.4 Chloride Level 104 Carbon Dioxide Level 29 Anion Gap 6 Blood Urea Nitrogen 33 H Creatinine 0.78 Est Glomerular Filtrat Rate mL/min Glucose Level 238 #H Calcium Level 7.6 L Phosphorus Level 3.8 Magnesium Level 2.3 Medications Medication Current Medications IV Flush (NS 3 ml) 3 ml PER PROTOCOL IV ; Start 06/10/19 at 12:00 Ondansetron HCl (Zofran Inj) 4 mg Q6H PRN IV NAUSEA/VOMITING; Start 06/10/19 at 12:00 Acetaminophen (Tylenol Tab) 650 mg Q6H PRN PO .PAIN 1-3 OR TEMP Last administered on 06/13/19at 15:52; Admin Dose 650 MG; Start 06/10/19 at 12:00 Acetaminophen/ Hydrocodone Bitart ([place] (5/325)) 1 tab Q6H PRN PO .PAIN 4-6; Start 06/10/19 at 12:00 Morphine Sulfate (morphine) 2 mg Q4H PRN IV .PAIN 7-10 Last administered on 06/15/19at 16:57; Admin Dose 2 MG; Start 06/10/19 at 12:00 Vancomycin HCl (Vanco Iv Per Pharmacy) VANCOMYCIN PER PHARMACY PER PROTOCOL XX ; Start 06/10/19 at 12:30 Amiodarone HCl (Cordarone) 100 mg DAILY GTB Last administered on 06/17/19at 09:07; Admin Dose 100 MG; Start 06/11/19 at 09:00 Atorvastatin Calcium (Lipitor) 20 mg QHS GTB Last administered on 06/16/19at 21:03; Admin Dose 20 MG; Start 06/10/19 at 21:00 Levetiracetam (Keppra Liquid) 500 mg BID GTB Last administered on 06/17/19at 09:06; Admin Dose 500 MG; Start 06/10/19 at 21:00 Olanzapine (Zyprexa) 5 mg DAILY GTB Last administered on 06/17/19at 09:06; Admin Dose 5 MG; Start 06/11/19 at 09:00 Polyethylene Glycol (Miralax) 17 gm DAILY GTB Last administered on 06/15/19at 09:04; Admin Dose 17 GM; Start 06/11/19 at 09:00 Miscellaneous Information 1 ea NOTE XX ; Start 06/10/19 at 14:00 Glucose (Glutose) 15 gm Q15M PRN PO DECREASED GLUCOSE; Start 06/10/19 at 14:00 Glucose (Glutose) 22.5 gm Q15M PRN PO DECREASED GLUCOSE; Start 06/10/19 at 14:00 Dextrose (D50w Syringe) 25 ml Q15M PRN IV DECREASED GLUCOSE; Start 06/10/19 at 14:00 Dextrose (D50w Syringe) 50 ml Q15M PRN IV DECREASED GLUCOSE; Start 06/10/19 at 14:00 Glucagon (Glucagen) 1 mg Q15M PRN IM DECREASED GLUCOSE; Start 06/10/19 at 14:00 Glucose (Glutose) 15 gm Q15M PRN BUCCAL DECREASED GLUCOSE; Start 06/10/19 at 14:00 Budesonide (Pulmicort (Neb)) 0.5 mg BID RESP THERAPY HHN Last administered on 06/17/19 08:25; Admin Dose 0.5 MG; Start 06/10/19 at 20:00 IV Flush (NS 10 ml) 10 ml [id number] PRN IV Line Patency; Start 06/10/19 at 16:00 Fluvoxamine Maleate (Fluvoxamine Maleate) 25 mg DAILY GTB Last administered on 06/17/19 09:06; Admin Dose 25 MG; Start 06/11/19 at 09:00 Aspirin (Aspirin) 81 mg DAILY PEG Last administered on 06/17/19 09:07; Admin Dose 81 MG; Start 06/11/19 at 09:00 Heparin Sodium (Porcine) (Heparin (5000 Units/1ml)) 5,000 unit Q8 SC Last administered on 06/14/19 06:01; Admin Dose 5,000 UNIT; Start 06/11/19 at 14:00; Status Hold Ipratropium [place] (Atrovent 0.02% (Neb)) 0.5 mg Q4H RESP THERAPY PRN HHN SHORTNESS OF BREATH; Start 06/12/19 at 10:00 Levalbuterol (Xopenex Neb) 1.25 mg Q4H RESP THERAPY PRN HHN shortness of breath; Start 06/12/19 at 10:00 Fentanyl 100 ml @ 2.5 mls/hr TITRATE IV Last administered on 06/17/19 09:25; Admin Dose 7.5 MLS/HR; Start 06/12/19 at 10:00 Phenylephrine HCl 80 mg/Dextrose 250 ml @ 18.75 mls/ hr TITRATE IV Last administered on 06/16/19 08:39; Admin Dose 15.1 MLS/HR; Start 06/12/19 at 14:00 Levalbuterol (Xopenex Hfa) 4 puff Q6H RESP THERAPY INH Last administered on 06/17/19 08:25; Admin Dose 4 PUFF; Start 06/12/19 at 20:00 Ipratropium [place] (Atrovent Hfa) 4 puff Q6H RESP THERAPY INH Last administered on 06/17/19 08:25; Admin Dose 4 PUFF; Start 06/12/19 at 20:00 Norepinephrine 32 mg/Dextrose 250 ml @ 0.47 mls/hr TITRATE IV Last administered on 06/14/19at 23:49; Admin Dose 5.06 MLS/HR; Start 06/13/19 at 08:00 Meropenem/Sodium Chloride 50 ml @ 100 mls/hr Q12 IVPB Last administered on 06/17/19at 09:06; Admin Dose 100 MLS/HR; Start 06/13/19 at 14:00 Hydrocortisone (Solu-Cortef) 100 mg Q8 IV Last administered on 06/17/19at 14:37; Admin Dose 100 MG; Start 06/14/19 at 10:00 Docusate Sodium (Colace Liquid Cup) 100 mg BID GTB Last administered on 06/16at 21:03; Admin Dose 100 MG; Start 06/14/19 at 12:30 Miscellaneous Information (* Miscellaneous Pharmacy Order) Treatment of Hypoglycemia: 1.BG 51... Per protocol XX ; Start 06/15/19 at 09:00 Dextrose (D50w Syringe) 25 ml Q15M PRN IV .DECREASED GLUCOSE; Start 06/15/19 at 09:00 Dextrose (D50w Syringe) 50 ml Q15M PRN IV .DECREASED GLUCOSE; Start 06/15/19 at 09:00 Potassium Chloride 50 ml @ 50 mls/hr K PROTOCOL PRN IVPB PENDING LAB VALUE; Start 06/15/19 at 09:00 Vancomycin/Sodium Chloride 250 ml @ 125 mls/hr Q24H IVPB Last administered on 06/17/19at 12:02; Admin Dose 125 MLS/HR; Start 06/16/19 at 12:00 Insulin Aspart (Novolog Insulin Pen) NOVOLOG *MILD* ALGORI... Q4 SC Last administered on 06/17/19at 12:05; Admin Dose 1 UNIT; Start 06/16/19 at 21:00 Insulin Glargine (Lantus) 15 units DAILY@0800 SC ; Start 06/18/19 at 08:00 Caspofungin 50 mg/ Sodium Chloride 250 ml @ 250 mls/hr Q24H IVPB ; Start 06/18/19 at 13:00 Midazolam HCl 50 ml @ 1 mls/hr TITRATE IV ; Start 06/17/19 at 15:30; Status SHENG NGUYỄN MD Jun 17, 2019 15:25
[2019-06-17] MEDS ORDERED: FUROSEMIDE 20 MG INJ IV ONE (15:30)
[2019-06-17] MEDS ORDERED: ALBUMIN HUMAN 25% 100 ML IV ONE (15:30)
[2019-06-17] MEDS: MIDAZOLAM (DRIP) 50 mg/50 mL 50 ML IV SCH (16:14)
[2019-06-17] MEDS: ATORVASTATIN 20 MG TAB GTB SCH (21:29)
[2019-06-18] VITALS (98 sets, daily range): BP systolic 85–151; BP diastolic 51–95; PULSE 71–120; RESP 18–45
[2019-06-18] MEDS: INSULIN ASPART [NOVOLOG] 3 ML PEN SC SCH ×6 (00:44→20:28)
[2019-06-18] MEDS: IPRATROPIUM (HFA) 12.9 GM INHALER INH SCH ×4 (01:42→19:36)
[2019-06-18] MEDS: LEVALBUTEROL (HFA) 15 GM INHALER INH SCH ×4 (01:42→19:35)
[2019-06-18] MEDS: FENTAnyl (DRIP) 1000 mcg/100mL 100 ML IV SCH ×2 (03:45→16:42)
[2019-06-18] MEDS: HYDROCORTISONE 100 MG INJ IV SCH ×3 (05:43→21:32)
[2019-06-18] MEDS: FLUVOXAMINE MALEATE 25 MG TABLET GTB SCH (08:24)
[2019-06-18] MEDS: LEVETIRACETAM (100 MG/ML) 5ML CUP GTB SCH ×2 (08:24→20:21)
[2019-06-18] MEDS: ASPIRIN 81 MG TAB PEG SCH (08:24)
[2019-06-18] MEDS: MEROPENEM 1 GM/50ML(PMX) 50 ML IVPB SCH ×2 (08:24→20:21)
[2019-06-18] MEDS: OLANZAPINE 5 MG TAB GTB SCH (08:24)
[2019-06-18] MEDS: AMIODARONE 200 MG TAB GTB SCH (08:25)
[2019-06-18] MEDS: INSULIN GLARGINE [LANTus] (100 UNITS/ML) SYG SC SCH (08:30)
[2019-06-18] MEDS: DOCUSATE SODIUM 10 MG/ML (10ML CUP) GTB SCH ×2 (08:30→20:21)
[2019-06-18] MEDS: POLYETHYLENE GLYCOL 17 GM PACKET GTB SCH (08:30)
--- NOTE | 2019-06-18 08:30 | CONS ---
Assessment/Plan Assessment/Plan Assessment/Plan (Daily) Ventilator setting; AC of 20, tidal volume 500, PEEP of 10, 60% FiO2. Patient is currently on fentanyl 100 mics per hour, Versed 2 mg/h. Assessment and recommendations; 1. Patient with history of advanced dementia admitted with respiratory failure due to severe bilateral pneumonia with ARDS. 2. History of paroxysmal atrial fibrillation, currently in sinus rhythm. 3. Anemia and severe thrombocytopenia. No overt bleeding noted. 4. History of diabetes. 5. History of seizure disorder. 6. UTI. 7. Reduction in generalized anasarca. 8. Persistent hypoxemia. 9. Possibly low-grade DIC. Continue current supportive care. Decrease hydrocortisone dose to 50 mg every 8 hours from 100 mg every 8 hours with subsequent reduction in 24 hours in dosing. Follow-up chest x-ray 24 hours. Prognosis appears very poor. 35 minutes of critical care time was spent evaluating the patient. Consultation Date/Type/Reason Admit Date/Time Jun 10, 2019 at 12:38 Initial Consult Date 06/11/19 Type of Consult Pulmonary/critical care Patient is an 84-year-old [place] lady who was transferred to to the hospital from residential with hypoxemia. Upon evaluation patient is been diagnosed with sepsis due to pneumonia. Patient has advanced dementia and is unable to give any history by herself whatsoever. Patient however is appearing tachypneic. Past medical history; 1. History of chronic atrial fibrillation. 2. Advanced dementia. 3. History of G-tube placement. 4. History of diabetes. 5. History of hypertension. Medications; reviewed. Allergies; none. Social history, family history, occupational history is are not available. Review of systems; unable to be obtained. General exam; elderly woman, on BiPAP. Noncommunicative. Tachypneic. Requesting Provider: AMLINI GOMEZ Date/Time of Note DATE: 06/18/19 TIME: 08:27 24 HR Interval Summary Free Text/Dictation Patient's condition remains critical. Still requiring fairly high FiO2. Gordon lino however has remained hemodynamically stable. General exam; elderly woman, orally intubated, sedated, currently in no distress. Exam/Review of Systems Exam Vitals Vital Signs Date Temp Pulse Resp B/P (MAP) Pulse Ox O2 O2 Flow FiO2 Time Delivery Rate 06/18/19 83 22 94 60 05:45 06/18/19 130/66 Mechanical 05:30 (87) Ventilator 06/18/19 97.8 04:00 Intake and Output 06/17/19 06/17/19 06/18/19 1515:00 23:00 07:00 IntakeIntake Total 1076.86 ml 952.72 ml 649.46 ml OutputOutput Total 360 ml 870 ml 725 ml BalanceBalance 716.86 ml 82.72 ml -75.54 ml Exam H EENT exam; supple neck, no JVD. No lymphadenopathy. Midline trachea. No thyromegaly. Orally intubated. Patient does have carious teeth. Pupils are small bilaterally. Chest exam; diminished breath sounds bilaterally. S1-S2 audible, no murmurs. Regular rhythm. Abdomen exam; soft, no organomegaly. Bowel sounds audible. G-tube in place. Extremity exam; trace lower extremity edema. Bilateral well-healed knee scars are present. RO[employer] exam; patient is sedated. Results Result Diagram: 06/18/19 0448 06/18/19 0448 Results 24hrs Laboratory Tests Test 06/17/19 09:05 06/17/19 12:00 06/17/19 16:28 06/17/19 20:53 Bedside Glucose 261 H 175 141 135 Test 06/18/19 00:41 06/18/19 04:48 06/18/19 05:35 06/18/19 08:02 Bedside Glucose 165 194 White Blood Count 17.1 H Red Blood Count 2.82 L Hemoglobin 8.5 L Hematocrit 25.5 L Mean Corpuscular 90.4 Volume Mean Corpuscular 30.1 Hemoglobin Mean Corpuscular 33.3 Hemoglobin Concen t Red Cell 14.2 Distribution Width Platelet Count 66 #L Mean Platelet 11.3 H Volume Immature 0.700 H Granulocytes % Neutrophils % 94.8 H Lymphocytes % 2.7 L Monocytes % 1.6 Eosinophils % 0.0 Basophils % 0.2 Nucleated Red 0.0 Blood Cells % Immature 0.120 H Granulocytes # Neutrophils # 16.3 H Lymphocytes # 0.5 L Monocytes # 0.3 Eosinophils # 0.0 Basophils # 0.0 Nucleated Red 0.0 Blood Cells # Sodium Level 141 Potassium Level 4.2 Chloride Level 107 Carbon Dioxide 29 Level Anion Gap 5 Blood Urea 41 H Nitrogen Creatinine 0.69 Glucose Level 227 H Calcium Level 8.1 L Phosphorus Level 4.2 Magnesium Level 2.3 Albumin 2.2 L Blood Gas Blood arterial Specimen Source Arterial Blood 06/18/2019 8:13:4 Date Drawn 3 AM Arterial Blood pH 7.449 (Temp corrected) Arterial Blood 40.6 pCO2 (Temp correct) Arterial Blood 58.8 L pO2 (Temp corrected) Arterial Blood 27.5 H HCO3 Arterial Blood 3.3 H Base Excess Arterial Blood 88.5 L Oxygen Saturation James Test ACCEPTAB Arterial Blood Right Radial Gas Puncture Site Arterial 0.3 Blood Carboxyhemo globin Arterial Blood 0.2 Methemoglobin Blood Gas A-a O2 396.7 H Differential Oxyhemoglobin 88.1 L Percent Blood Gas 37.0 Temperature Blood Gas 20.0 Respiration Rate Blood Gas Actual 22 Respiration Rate Blood Gas VENT - AC Modality FiO2 70.0 Blood Gas Tidal 500.0 Volume Blood Gas Low 10.0 PEEP Setting Blood Gas TM Notified Whom Blood Gas 06/18/2019 8:22:2 Notified Time 1 AM Test 06/18/19 08:23 Bedside Glucose 220 Medications Medication Current Medications IV Flush (NS 3 ml) 3 ml PER PROTOCOL IV ; Start 06/10/19 at 12:00 Ondansetron HCl (Zofran Inj) 4 mg Q6H PRN IV NAUSEA/VOMITING; Start 06/10/19 at 12:00 Acetaminophen (Tylenol Tab) 650 mg Q6H PRN PO .PAIN 1-3 OR TEMP Last administered on 06/13/19at 15:52; Admin Dose 650 MG; Start 06/10/19 at 12:00 Acetaminophen/ Hydrocodone Bitart ([place] (5/325)) 1 tab Q6H PRN PO .PAIN 4-6; Start 06/10/19 at 12:00 Morphine Sulfate (morphine) 2 mg Q4H PRN IV .PAIN 7-10 Last administered on 06/15/19at 16:57; Admin Dose 2 MG; Start 06/10/19 at 12:00 Vancomycin HCl (Vanco Iv Per Pharmacy) VANCOMYCIN PER PHARMACY PER PROTOCOL XX ; Start 06/10/19 at 12:30 Amiodarone HCl (Cordarone) 100 mg DAILY GTB Last administered on 06/17/19at 09:0 7; Admin Dose 100 MG; Start 06/11/19 at 09:00 Atorvastatin Calcium (Lipitor) 20 mg QHS GTB Last administered on 06/17/19 21:29; Admin Dose 20 MG; Start 06/10/19 at 21:00 Levetiracetam (Keppra Liquid) 500 mg BID GTB Last administered on 06/17/19 21:29; Admin Dose 500 MG; Start 06/10/19 at 21:00 Olanzapine (Zyprexa) 5 mg DAILY GTB Last administered on 06/17/19 09:06; Admin Dose 5 MG; Start 06/11/19 at 09:00 Polyethylene Glycol (Miralax) 17 gm DAILY GTB Last administered on 06/15/19 09:04; Admin Dose 17 GM; Start 06/11/19 at 09:00 Miscellaneous Information 1 ea NOTE XX ; Start 06/10/19 at 14:00 Glucose (Glutose) 15 gm Q15M PRN PO DECREASED GLUCOSE; Start 06/10/19 at 14:00 Glucose (Glutose) 22.5 gm Q15M PRN PO DECREASED GLUCOSE; Start 06/10/19 at 14:00 Dextrose (D50w Syringe) 25 ml Q15M PRN IV DECREASED GLUCOSE; Start 06/10/19 at 14:00 Dextrose (D50w Syringe) 50 ml Q15M PRN IV DECREASED GLUCOSE; Start 06/10/19 at 14:00 Glucagon (Glucagen) 1 mg Q15M PRN IM DECREASED GLUCOSE; Start 06/10/19 at 14:00 Glucose (Glutose) 15 gm Q15M PRN BUCCAL DECREASED GLUCOSE; Start 06/10/19 at 14:00 Budesonide (Pulmicort (Neb)) 0.5 mg BID RESP THERAPY HHN Last administered on 06/17/19 19:29; Admin Dose 0.5 MG; Start 06/10/19 at 20:00 IV Flush (NS 10 ml) 10 ml [id number] PRN IV Line Patency; Start 06/10/19 at 16:00 Fluvoxamine Maleate (Fluvoxamine Maleate) 25 mg DAILY GTB Last administered on 06/17/19 09:06; Admin Dose 25 MG; Start 06/11/19 at 09:00 Aspirin (Aspirin) 81 mg DAILY PEG Last administered on 06/17/19 09:07; Admin Dose 81 MG; Start 06/11/19 at 09:00 Heparin Sodium (Porcine) (Heparin (5000 Units/1ml)) 5,000 unit Q8 SC Last administered on 06/14/19 06:01; Admin Dose 5,000 UNIT; Start 06/11/19 at 14:00; Status Hold Ipratropium [place] (Atrovent 0.02% (Neb)) 0.5 mg Q4H RESP THERAPY PRN HHN SHORTNESS OF BREATH; Start 06/12/19 at 10:00 Levalbuterol (Xopenex Neb) 1.25 mg Q4H RESP THERAPY PRN HHN shortness of breath; Start 06/12/19 at 10:00 Fentanyl 100 ml @ 2.5 mls/hr TITRATE IV Last administered on 06/18/19 03:45; Admin Dose 10 MLS/HR; Start 06/12/19 at 10:00 Phenylephrine HCl 80 mg/Dextrose 250 ml @ 18.75 mls/ hr TITRATE IV Last administered on 06/16/19 08:39; Admin Dose 15.1 MLS/HR; Start 06/12/19 at 14:00 Levalbuterol (Xopenex Hfa) 4 puff Q6H RESP THERAPY INH Last administered on 06/18/19 01:42; Admin Dose 4 PUFF; Start 06/12/19 at 20:00 Ipratropium [place] (Atrovent Hfa) 4 puff Q6H RESP THERAPY INH Last administered on 06/18/19 01:42; Admin Dose 4 PUFF; Start 06/12/19 at 20:00 Norepinephrine 32 mg/Dextrose 250 ml @ 0.47 mls/hr TITRATE IV Last administered on 06/14/19 23:49; Admin Dose 5.06 MLS/HR; Start 06/13/19 at 08:00 Meropenem/Sodium Chloride 50 ml @ 100 mls/hr Q12 IVPB Last administered on 06/17/19 21:29; Admin Dose 100 MLS/HR; Start 06/13/19 at 14:00 Hydrocortisone (Solu-Cortef) 100 mg Q8 IV Last administered on 06/18/19 05:43; Admin Dose 100 MG; Start 06/14/19 at 10:00 Docusate Sodium (Colace Liquid Cup) 100 mg BID GTB Last administered on 06/17/19 21:29; Admin Dose 100 MG; Start 06/14/19 at 12:30 Potassium Chloride 50 ml @ 50 mls/hr K PROTOCOL PRN IVPB PENDING LAB VALUE; Start 06/15/19 at 09:00 Vancomycin/Sodium Chloride 250 ml @ 125 mls/hr Q24H IVPB Last administered on 06/17/19at 12:02; Admin Dose 125 MLS/HR; Start 06/16/19 at 12:00 Insulin Aspart (Novolog Insulin Pen) NOVOLOG *MILD* ALGORI... Q4 SC Last administered on 06/18/19at 05:39; Admin Dose 2 UNIT; Start 06/16/19 at 21:00 Insulin Glargine (Lantus) 15 units DAILY@0800 SC ; Start 06/18/19 at 08:00 Caspofungin 50 mg/ Sodium Chloride 250 ml @ 250 mls/hr Q24H IVPB ; Start 06/18/19 at 13:00 Midazolam HCl 50 ml @ 1 mls/hr TITRATE IV Last administered on 06/17/19at 16:14; Admin Dose 2 MLS/HR; Start 06/17/19 at 15:30 CHARAN LAUREANO Jun 18, 2019 08:30
[2019-06-18] MEDS: BUDESONIDE (NEB) 0.5MG/2ML AMP HHN SCH ×2 (08:39→19:35)
[2019-06-18] MEDS ORDERED: FUROSEMIDE 40 MG INJ IV ONE (09:00)
[2019-06-18] MEDS: MIDAZOLAM (DRIP) 50 mg/50 mL 50 ML IV SCH (09:43)
[2019-06-18] MEDS: BALSAM PERU/CASTOR OIL 60 GM TUBE TOP SCH (11:17)
--- NOTE | 2019-06-18 12:37 | CONS ---
Assessment/Plan Assessment/Plan Assessment/Plan (Daily) 1. acute Hypernatremia due to severe dehydration -resolved 2. acute Hyperkalemia due to FLOYD - Resolved 3. acute kidney injury on CKD III due to ATN from sepsis and Prerenal azotemia 4 . Septic shock due to multifocal PNA and UTI 5. Acute hypoxic respiratory failure due to PNA and Septic shock - Failed BIPAP- Intubated on 06/12/19 , 6. H/O severe dementia 7. H/O HTN 8. H/O HL 9. SNF resident 10. acute on chronic encephalopathy 11 h/o Dysphagia S/p G tube placement 12. Hypocalcemia with Ca 6.7 13. UTI with Urine cx growing ESBL Klebsiella Plan: BUN/Cr 41/0.69 , other electrolytes normal today,pt is on Low dose levophed 5 mcg currenlty on IV abx meropenem for ESBL Klebsiella UTI, Sputum Cx grew Bridget Albicans and MRSA- pt is on IV cancidas, and IV vancomycin- Renally dose all abx and monitor electrolytes Ventilator Management as per pulmonary Full Code, as per Son Ca 8.1 today, will give calcium gluconate if Ca drops lwer than 7.0 will follow up Consultation Date/Type/Reason Admit Date/Time Jun 10, 2019 at 12:38 Initial Consult Date 06/11/19 Type of Consult NEPHROLOGY Requesting Provider: MALINI GOMEZ Date/Time of Note DATE: 06/18/19 TIME: 12:37 Exam/Review of Systems Exam Vitals Vital Signs Date Temp Pulse Resp B/P (MAP) Pulse Ox O2 O2 Flow FiO2 Time Delivery Rate 06/18/19 89 12:00 06/18/19 21 111/68 100 11:00 (82) 06/18/19 70 08:00 06/18/19 97.6 08:00 06/18/19 Mechanical 05:30 Ventilator Intake and Output 06/17/19 06/17/19 06/18/19 1515:00 23:00 07:00 IntakeIntake Total 1076.86 ml 952.72 ml 699.46 ml OutputOutput Total 360 ml 870 ml 775 ml BalanceBalance 716.86 ml 82.72 ml -75.54 ml Exam General: intubated on ventilator HEENT: ET tube in place, NG tube Neck: Supple, + JVD , no LAD Respiratory: Bilateral coarse BS+, basilar wheezing Cardiovascular: S1 S2 tachycardia, no murmur Gastrointestinal: soft, NT, ND, Thin abdomen, BS+, + PEG tube in place Neurological: sedated intubated on ventilator Results Result Diagram: 06/18/198 06/18/19 0448 Results 24hrs Laboratory Tests Test 06/17/19 16:28 06/17/19 20:53 06/18/19 00:41 06/18/19 04:48 Bedside Glucose 141 135 165 White Blood Count 17.1 H Red Blood Count 2.82 L Hemoglobin 8.5 L Hematocrit 25.5 L Mean Corpuscular 90.4 Volume Mean Corpuscular 30.1 Hemoglobin Mean Corpuscular 33.3 Hemoglobin Concen t Red Cell 14.2 Distribution Width Platelet Count 66 #L Mean Platelet 11.3 H Volume Immature 0.700 H Granulocytes % Neutrophils % 94.8 H Lymphocytes % 2.7 L Monocytes % 1.6 Eosinophils % 0.0 Basophils % 0.2 Nucleated Red 0.0 Blood Cells % Immature 0.120 H Granulocytes # Neutrophils # 16.3 H Lymphocytes # 0.5 L Monocytes # 0.3 Eosinophils # 0.0 Basophils # 0.0 Nucleated Red 0.0 Blood Cells # Sodium Level 141 Potassium Level 4.2 Chloride Level 107 Carbon Dioxide 29 Level Anion Gap 5 Blood Urea 41 H Nitrogen Creatinine 0.69 Glucose Level 227 H Calcium Level 8.1 L Phosphorus Level 4.2 Magnesium Level 2.3 Albumin 2.2 L Test 06/18/19 05:35 06/18/19 08:02 06/18/19 08:23 Bedside Glucose 194 220 Blood Gas Blood arterial Specimen Source Arterial Blood 06/18/2019 8:13:4 Date Drawn 3 AM Arterial Blood pH 7.449 (Temp corrected) Arterial Blood 40.6 pCO2 (Temp correct) Arterial Blood 58.8 L pO2 (Temp corrected) Arterial Blood 27.5 H HCO3 Arterial Blood 3.3 H Base Excess Arterial Blood 88.5 L Oxygen Saturation James Test ACCEPTAB Arterial Blood Right Radial Gas Puncture Site Arterial 0.3 Blood Carboxyhemo globin Arterial Blood 0.2 Methemoglobin Blood Gas A-a O2 396.7 H Differential Oxyhemoglobin 88.1 L Percent Blood Gas 37.0 Temperature Blood Gas 20.0 Respiration Rate Blood Gas Actual 22 Respiration Rate Blood Gas VENT - AC Modality FiO2 70.0 Blood Gas Tidal 500.0 Volume Blood Gas Low 10.0 PEEP Setting Blood Gas TM Notified Whom Blood Gas 06/18/2019 8:22:2 Notified Time 1 AM Medications Medication Current Medications IV Flush (NS 3 ml) 3 ml PER PROTOCOL IV ; Start 06/10/19 at 12:00 Ondansetron HCl (Zofran Inj) 4 mg Q6H PRN IV NAUSEA/VOMITING; Start 06/10/19 at 12:00 Acetaminophen (Tylenol Tab) 650 mg Q6H PRN PO .PAIN 1-3 OR TEMP Last administered on 06/13/19 15:52; Admin Dose 650 MG; Start 06/10/19 at 12:00 Acetaminophen/ Hydrocodone Bitart ([place] (5/325)) 1 tab Q6H PRN PO .PAIN 4-6; Start 06/10/19 at 12:00 Morphine Sulfate (morphine) 2 mg Q4H PRN IV .PAIN 7-10 Last administered on 06/15/19 16:57; Admin Dose 2 MG; Start 06/10/19 at 12:00 Vancomycin HCl (Vanco Iv Per Pharmacy) VANCOMYCIN PER PHARMACY PER PROTOCOL XX ; Start 06/10/19 at 12:30 Amiodarone HCl (Cordarone) 100 mg DAILY GTB Last administered on 06/18/19 08:25; Admin Dose 100 MG; Start 06/11/19 at 09:00 Atorvastatin Calcium (Lipitor) 20 mg QHS GTB Last administered on 06/17/19at 21:29; Admin Dose 20 MG; Start 06/10/19 at 21:00 Levetiracetam (Keppra Liquid) 500 mg BID GTB Last administered on 06/18/19 08:24; Admin Dose 500 MG; Start 06/10/19 at 21:00 Olanzapine (Zyprexa) 5 mg DAILY GTB Last administered on 06/18/19 08:24; Admin Dose 5 MG; Start 06/11/19 at 09:00 Polyethylene Glycol (Miralax) 17 gm DAILY GTB Last administered on 06/15/19 09:04; Admin Dose 17 GM; Start 06/11/19 at 09:00 Miscellaneous Information 1 ea NOTE XX ; Start 06/10/19 at 14:00 Glucose (Glutose) 15 gm Q15M PRN PO DECREASED GLUCOSE; Start 06/10/19 at 14:00 Glucose (Glutose) 22.5 gm Q15M PRN PO DECREASED GLUCOSE; Start 06/10/19 at 14:00 Dextrose (D50w Syringe) 25 ml Q15M PRN IV DECREASED GLUCOSE; Start 06/10/19 at 14:00 Dextrose (D50w Syringe) 50 ml Q15M PRN IV DECREASED GLUCOSE; Start 06/10/19 at 14:00 Glucagon (Glucagen) 1 mg Q15M PRN IM DECREASED GLUCOSE; Start 06/10/19 at 14:00 Glucose (Glutose) 15 gm Q15M PRN BUCCAL DECREASED GLUCOSE; Start 06/10/19 at 14:00 Budesonide (Pulmicort (Neb)) 0.5 mg BID RESP THERAPY HHN Last administered on 06/18/19at 08:39; Admin Dose 0.5 MG; Start 06/10/19 at 20:00 IV Flush (NS 10 ml) 10 ml [id number] PRN IV Line Patency; Start 06/10/19 at 16:00 Fluvoxamine Maleate (Fluvoxamine Maleate) 25 mg DAILY GTB Last administered on 06/18/19at 08:24; Admin Dose 25 MG; Start 06/11/19 at 09:00 Aspirin (Aspirin) 81 mg DAILY PEG Last administered on 06/18/19at 08:24; Admin Dose 81 MG; Start 06/11/19 at 09:00 Heparin Sodium (Porcine) (Heparin (5000 Units/1ml)) 5,000 unit Q8 SC Last administered on 06/14/19at 06:01; Admin Dose 5,000 UNIT; Start 06/11/19 at 14:00; Status Hold Ipratropium [place] (Atrovent 0.02% (Neb)) 0.5 mg Q4H RESP THERAPY PRN HHN SHORTNESS OF BREATH; Start 06/12/19 at 10:00 Levalbuterol (Xopenex Neb) 1.25 mg Q4H RESP THERAPY PRN HHN shortness of breath; Start 06/12/19 at 10:00 Fentanyl 100 ml @ 2.5 mls/hr TITRATE IV Last administered on 06/18/19at 03:45; Admin Dose 10 MLS/HR; Start 06/12/19 at 10:00 Phenylephrine HCl 80 mg/Dextrose 250 ml @ 18.75 mls/ hr TITRATE IV Last administered on 06/16/19 08:39; Admin Dose 15.1 MLS/HR; Start 06/12/19 at 14:00 Levalbuterol (Xopenex Hfa) 4 puff Q6H RESP THERAPY INH Last administered on 06/18/19 08:32; Admin Dose 4 PUFF; Start 06/12/19 at 20:00 Ipratropium [place] (Atrovent Hfa) 4 puff Q6H RESP THERAPY INH Last administered on 06/18/19 08:32; Admin Dose 4 PUFF; Start 06/12/19 at 20:00 Norepinephrine 32 mg/Dextrose 250 ml @ 0.47 mls/hr TITRATE IV Last administered on 06/14/19 23:49; Admin Dose 5.06 MLS/HR; Start 06/13/19 at 08:00 Meropenem/Sodium Chloride 50 ml @ 100 mls/hr Q12 IVPB Last administered on 06/18/19 08:24; Admin Dose 100 MLS/HR; Start 06/13/19 at 14:00 Docusate Sodium (Colace Liquid Cup) 100 mg BID GTB Last administered on 06/17/19 21:29; Admin Dose 100 MG; Start 06/14/19 at 12:30 Potassium Chloride 50 ml @ 50 mls/hr K PROTOCOL PRN IVPB PENDING LAB VALUE; Start 06/15/19 at 09:00 Vancomycin/Sodium Chloride 250 ml @ 125 mls/hr Q24H IVPB Last administered on 06/17/19 12:02; Admin Dose 125 MLS/HR; Start 06/16/19 at 12:00 Insulin Aspart (Novolog Insulin Pen) NOVOLOG *MILD* ALGORI... Q4 SC Last administered on 06/18/19 08:41; Admin Dose 2 UNIT; Start 06/16/19 at 21:00 Insulin Glargine (Lantus) 15 units DAILY@0800 SC Last administered on 06/18/19 08:30; Admin Dose 15 UNITS; Start 06/18/19 at 08:00 Caspofungin 50 mg/ Sodium Chloride 250 ml @ 250 mls/hr Q24H IVPB ; Start 06/18/19 at 13:00 Midazolam HCl 50 ml @ 1 mls/hr TITRATE IV Last administered on 06/18/19at 09:43; Admin Dose 2 MLS/HR; Start 06/17/19 at 15:30 Hydrocortisone (Solu-Cortef) 50 mg Q8 IV ; Start 06/18/19 at 14:00 Propofol 100 ml @ 1.656 mls/ hr Q12H IV ; Start 06/18/19 at 10:00 GERMAN FELIX MD Jun 18, 2019 12:37
[2019-06-18] MEDS: PROPOFOL 100 ML IV SCH ×2 (13:22→21:02)
[2019-06-18] MEDS: VANCOMYCIN 750 MG (PMX) 250 ML IVPB SCH (13:28)
[2019-06-18] MEDS: CASPOFUNGIN 50 MG in SOD CHLORIDE 0.9% 250 ML IVPB SCH ×2 (13:29→13:30)
--- NOTE | 2019-06-18 15:41 | PN ---
Date/Time of Note Date/Time of Note DATE: 06/18/19 TIME: 15:33 Assessment/Plan VTE Prophylaxis Risk score (from Nsg)>0 risk: 15 SCD applied (from Nsg): Yes Pharmacological prophylaxis: heparin Lines/Catheters IV Catheter Type (from Nrsg): PICC Line Central line still needed: Yes Urinary Cath still in place: Yes Reason Cath still needed: terminal illness/intractable pain Assessment/Plan Assessment/Plan 1. Acute hypoxic respiratory failure, ARDS secondary to sepsis - Pulm on board and appreciate recommendations - CXR noted and will give a dose of Lasix - still on high vent settings - Pulmonology on board and appreciate recommendations. Consistent with ARDS and managing vent settings. - Continue IV antibiotics 2. Multifocal pneumonia - ID on board and appreciate recommendations - Continue current antibiotics 3. Septic shock versus severe sepsis - continue on pressor support with MAP >65. Will wean as tolerated. Currently remains on 1 pressors 4. Atrial fibrillation with RVR - stable - back in sinus rhythm - Cardiology consultation appreciated 5. Non-ST elevated RI - Cardiology consultation appreciated and will continue current medications - Very mild elevation - continue aspirin and statin 6. Hypocalcemia- resolved 7. Thrombocytopenia- improving - Very likely due to septic shock - Fibrinogen is elevated, unlikely DIC - Hold heparin for now 8. Chronic dysphasia - Patient has PEG tube 9. Diabetes mellitus - continue on Lantus and adjust as needed for better sugar control 10. Chronic encephalopathy - CT of the brain initially showed alarming findings however there appears to be a mixup with patient's name, patient's actual name is Trey Roberts, [id number]. Neurosurgeon was initially consulted for possible brain bleed and other findings however when comparing to the patient's actual chart in 2013, neurosurgeon reviewed the CT and MRI and found a similar findings with no acute emergent change. - Monitor closely, patient appears to be at baseline 11. Dyslipidemia - Continue home meds 12. Mood disorder - Continue home meds 13. Chronic kidney disease - resolved - nephrology consultation appreciated 14. Failure to thrive - now DNR per families request 15. Disposition - Continue monitoring in ICU. Will need to discuss goals of care with family given patient does not appear to be improving on vent >35 minutes of critical care spent with patient at bedside Result Diagram: 06/18/19 0448 06/18/19 0448 Results 24hrs Laboratory Tests Test 06/17/19 16:28 06/17/19 20:53 06/18/19 00:41 06/18/19 04:48 Bedside Glucose 141 135 165 White Blood Count 17.1 H Red Blood Count 2.82 L Hemoglobin 8.5 L Hematocrit 25.5 L Mean Corpuscular 90.4 Volume Mean Corpuscular 30.1 Hemoglobin Mean Corpuscular 33.3 Hemoglobin Concen t Red Cell 14.2 Distribution Width Platelet Count 66 #L Mean Platelet 11.3 H Volume Immature 0.700 H Granulocytes % Neutrophils % 94.8 H Lymphocytes % 2.7 L Monocytes % 1.6 Eosinophils % 0.0 Basophils % 0.2 Nucleated Red 0.0 Blood Cells % Immature 0.120 H Granulocytes # Neutrophils # 16.3 H Lymphocytes # 0.5 L Monocytes # 0.3 Eosinophils # 0.0 Basophils # 0.0 Nucleated Red 0.0 Blood Cells # Sodium Level 141 Potassium Level 4.2 Chloride Level 107 Carbon Dioxide 29 Level Anion Gap 5 Blood Urea 41 H Nitrogen Creatinine 0.69 Glucose Level 227 H Calcium Level 8.1 L Phosphorus Level 4.2 Magnesium Level 2.3 Albumin 2.2 L Test 06/18/19 05:35 06/18/19 08:02 06/18/19 08:23 06/18/19 13:39 Bedside Glucose 194 220 215 Blood Gas Blood arterial Specimen Source Arterial Blood 06/18/2019 8:13:4 Date Drawn 3 AM Arterial Blood pH 7.449 (Temp corrected) Arterial Blood 40.6 pCO2 (Temp correct) Arterial Blood 58.8 L pO2 (Temp corrected) Arterial Blood 27.5 H HCO3 Arterial Blood 3.3 H Base Excess Arterial Blood 88.5 L Oxygen Saturation James Test ACCEPTAB Arterial Blood Right Radial Gas Puncture Site Arterial 0.3 Blood Carboxyhemo globin Arterial Blood 0.2 Methemoglobin Blood Gas A-a O2 396.7 H Differential Oxyhemoglobin 88.1 L Percent Blood Gas 37.0 Temperature Blood Gas 20.0 Respiration Rate Blood Gas Actual 22 Respiration Rate Blood Gas VENT - AC Modality FiO2 70.0 Blood Gas Tidal 500.0 Volume Blood Gas Low 10.0 PEEP Setting Blood Gas TM Notified Whom Blood Gas 06/18/2019 8:22:2 Notified Time 1 AM Subjective 24 Hr Interval Summary Free Text/Dictation Patient remains on pressor support and titrated up on vent setting given hypoxia. Exam/Review of Systems Exam Vitals Vital Signs Date Temp Pulse Resp B/P (MAP) Pulse Ox O2 O2 Flow FiO2 Time Delivery Rate 06/18/19 89 12:00 06/18/19 22 99 100 11:10 06/18/19 111/68 11:00 (82) 06/18/19 97.6 08:00 06/18/19 Mechanical 05:30 Ventilator Intake and Output 06/17/19 06/17/19 06/18/19 1515:00 23:00 07:00 IntakeIntake Total 1076.86 ml 952.72 ml 711.34 ml OutputOutput Total 360 ml 870 ml 775 ml BalanceBalance 716.86 ml 82.72 ml -63.66 ml Exam General: Patient is intubated. Head: Normocephalic atraumatic Eyes: EOMI, pupils reactive to light Neck: Supple, nontender, midline Respiratory: Coarse to auscultation bilaterally. no wheezing Cardiovascular: Regular rate and rhythm, no obvious murmurs Gastrointestinal: non-tender to palpation, bowel sounds heard. PEG in place Ext: bilateral upper and lower extremity pitting edema Results Results 24hrs Laboratory Tests Test 06/17/19 16:28 06/17/19 20:53 06/18/19 00:41 06/18/19 04:48 Bedside Glucose 141 135 165 White Blood Count 17.1 H Red Blood Count 2.82 L Hemoglobin 8.5 L Hematocrit 25.5 L Mean Corpuscular 90.4 Volume Mean Corpuscular 30.1 Hemoglobin Mean Corpuscular 33.3 Hemoglobin Concen t Red Cell 14.2 Distribution Width Platelet Count 66 #L Mean Platelet 11.3 H Volume Immature 0.700 H Granulocytes % Neutrophils % 94.8 H Lymphocytes % 2.7 L Monocytes % 1.6 Eosinophils % 0.0 Basophils % 0.2 Nucleated Red 0.0 Blood Cells % Immature 0.120 H Granulocytes # Neutrophils # 16.3 H Lymphocytes # 0.5 L Monocytes # 0.3 Eosinophils # 0.0 Basophils # 0.0 Nucleated Red 0.0 Blood Cells # Sodium Level 141 Potassium Level 4.2 Chloride Level 107 Carbon Dioxide 29 Level Anion Gap 5 Blood Urea 41 H Nitrogen Creatinine 0.69 Glucose Level 227 H Calcium Level 8.1 L Phosphorus Level 4.2 Magnesium Level 2.3 Albumin 2.2 L Test 06/18/19 05:35 06/18/19 08:02 06/18/19 08:23 06/18/19 13:39 Bedside Glucose 194 220 215 Blood Gas Blood arterial Specimen Source Arterial Blood 06/18/2019 8:13:4 Date Drawn 3 AM Arterial Blood pH 7.449 (Temp corrected) Arterial Blood 40.6 pCO2 (Temp correct) Arterial Blood 58.8 L pO2 (Temp corrected) Arterial Blood 27.5 H HCO3 Arterial Blood 3.3 H Base Excess Arterial Blood 88.5 L Oxygen Saturation James Test ACCEPTAB Arterial Blood Right Radial Gas Puncture Site Arterial 0.3 Blood Carboxyhemo globin Arterial Blood 0.2 Methemoglobin Blood Gas A-a O2 396.7 H Differential Oxyhemoglobin 88.1 L Percent Blood Gas 37.0 Temperature Blood Gas 20.0 Respiration Rate Blood Gas Actual 22 Respiration Rate Blood Gas VENT - AC Modality FiO2 70.0 Blood Gas Tidal 500.0 Volume Blood Gas Low 10.0 PEEP Setting Blood Gas TM Notified Whom Blood Gas 06/18/2019 8:22:2 Notified Time 1 AM Medications Medication Current Medications IV Flush (NS 3 ml) 3 ml PER PROTOCOL IV ; Start 06/10/19 at 12:00 Ondansetron HCl (Zofran Inj) 4 mg Q6H PRN IV NAUSEA/VOMITING; Start 06/10/19 at 12:00 Acetaminophen (Tylenol Tab) 650 mg Q6H PRN PO .PAIN 1-3 OR TEMP Last administered on 06/13/19at 15:52; Admin Dose 650 MG; Start 06/10/19 at 12:00 Acetaminophen/ Hydrocodone Bitart ([place] (5/325)) 1 tab Q6H PRN PO .PAIN 4-6; Start 06/10/19 at 12:00 Morphine Sulfate (morphine) 2 mg Q4H PRN IV .PAIN 7-10 Last administered on 06/15/19at 16:57; Admin Dose 2 MG; Start 06/10/19 at 12:00 Vancomycin HCl (Vanco Iv Per Pharmacy) VANCOMYCIN PER PHARMACY PER PROTOCOL XX ; Start 06/10/19 at 12:30 Amiodarone HCl (Cordarone) 100 mg DAILY GTB Last administered on 06/18/19at 08:25; Admin Dose 100 MG; Start 06/11/19 at 09:00 Atorvastatin Calcium (Lipitor) 20 mg QHS GTB Last administered on 06/17/19at 21:29; Admin Dose 20 MG; Start 06/10/19 at 21:00 Levetiracetam (Keppra Liquid) 500 mg BID GTB Last administered on 06/18/19at 08:24; Admin Dose 500 MG; Start 06/10/19 at 21:00 Olanzapine (Zyprexa) 5 mg DAILY GTB Last administered on 06/18/19at 08:24; Admin Dose 5 MG; Start 06/11/19 at 09:00 Polyethylene Glycol (Miralax) 17 gm DAILY GTB Last administered on 06/15/19at 09:04; Admin Dose 17 GM; Start 06/11/19 at 09:00 Miscellaneous Information 1 ea NOTE XX ; Start 06/10/19 at 14:00 Glucose (Glutose) 15 gm Q15M PRN PO DECREASED GLUCOSE; Start 06/10/19 at 14:00 Glucose (Glutose) 22.5 gm Q15M PRN PO DECREASED GLUCOSE; Start 06/10/19 at 14:00 Dextrose (D50w Syringe) 25 ml Q15M PRN IV DECREASED GLUCOSE; Start 06/10/19 at 14:00 Dextrose (D50w Syringe) 50 ml Q15M PRN IV DECREASED GLUCOSE; Start 06/10/19 at 14:00 Glucagon (Glucagen) 1 mg Q15M PRN IM DECREASED GLUCOSE; Start 06/10/19 at 14:00 Glucose (Glutose) 15 gm Q15M PRN BUCCAL DECREASED GLUCOSE; Start 06/10/19 at 14:00 Budesonide (Pulmicort (Neb)) 0.5 mg BID RESP THERAPY HHN Last administered on 06/18/19at 08:39; Admin Dose 0.5 MG; Start 06/10/19 at 20:00 IV Flush (NS 10 ml) 10 ml [id number] PRN IV Line Patency; Start 06/10/19 at 16:00 Fluvoxamine Maleate (Fluvoxamine Maleate) 25 mg DAILY GTB Last administered on 06/18/19 08:24; Admin Dose 25 MG; Start 06/11/19 at 09:00 Aspirin (Aspirin) 81 mg DAILY PEG Last administered on 06/18/19at 08:24; Admin Dose 81 MG; Start 06/11/19 at 09:00 Heparin Sodium (Porcine) (Heparin (5000 Units/1ml)) 5,000 unit Q8 SC Last administered on 06/14/19 06:01; Admin Dose 5,000 UNIT; Start 06/11/19 at 14:00; Status Hold Ipratropium [place] (Atrovent 0.02% (Neb)) 0.5 mg Q4H RESP THERAPY PRN HHN SHORTNESS OF BREATH; Start 06/12/19 at 10:00 Levalbuterol (Xopenex Neb) 1.25 mg Q4H RESP THERAPY PRN HHN shortness of breath; Start 06/12/19 at 10:00 Fentanyl 100 ml @ 2.5 mls/hr TITRATE IV Last administered on 06/18/19 03:45; Admin Dose 10 MLS/HR; Start 06/12/19 at 10:00 Phenylephrine HCl 80 mg/Dextrose 250 ml @ 18.75 mls/ hr TITRATE IV Last administered on 06/16/19 08:39; Admin Dose 15.1 MLS/HR; Start 06/12/19 at 14:00 Levalbuterol (Xopenex Hfa) 4 puff Q6H RESP THERAPY INH Last administered on 06/18/19 14:11; Admin Dose 4 PUFF; Start 06/12/19 at 20:00 Ipratropium [place] (Atrovent Hfa) 4 puff Q6H RESP THERAPY INH Last administered on 06/18/19 14:11; Admin Dose 4 PUFF; Start 06/12/19 at 20:00 Norepinephrine 32 mg/Dextrose 250 ml @ 0.47 mls/hr TITRATE IV Last administered on 06/14/19 23:49; Admin Dose 5.06 MLS/HR; Start 06/13/19 at 08:00 Meropenem/Sodium Chloride 50 ml @ 100 mls/hr Q12 IVPB Last administered on 06/18/19 08:24; Admin Dose 100 MLS/HR; Start 06/13/19 at 14:00 Docusate Sodium (Colace Liquid Cup) 100 mg BID GTB Last administered on 06/17/19 21:29; Admin Dose 100 MG; Start 06/14/19 at 12:30 Potassium Chloride 50 ml @ 50 mls/hr K PROTOCOL PRN IVPB PENDING LAB VALUE; Start 06/15/19 at 09:00 Vancomycin/Sodium Chloride 250 ml @ 125 mls/hr Q24H IVPB Last administered on 06/18/19 13:28; Admin Dose 125 MLS/HR; Start 06/16/19 at 12:00 Insulin Aspart (Novolog Insulin Pen) NOVOLOG *MILD* ALGORI... Q4 SC Last administered on 06/18/19 13:53; Admin Dose 2 UNIT; Start 06/16/19 at 21:00 Insulin Glargine (Lantus) 15 units DAILY@0800 SC Last administered on 06/18/19 08:30; Admin Dose 15 UNITS; Start 06/18/19 at 08:00 Caspofungin 50 mg/ Sodium Chloride 250 ml @ 250 mls/hr Q24H IVPB Last administered on 06/18/19 13:30; Admin Dose 250 MLS/HR; Start 06/18/19 at 13:00 Midazolam HCl 50 ml @ 1 mls/hr TITRATE IV Last administered on 06/18/19 09:43; Admin Dose 2 MLS/HR; Start 06/17/19 at 15:30 Hydrocortisone (Solu-Cortef) 50 mg Q8 IV Last administered on 06/18/19 13:30; Admin Dose 50 MG; Start 06/18/19 at 14:00 Propofol 100 ml @ 1.656 mls/ hr Q12H IV Last administered on 06/18/19 13:22; Admin Dose 1.656 MLS/HR; Start 06/18/19 at 10:00 Miscellaneous Information (*Rx Drug Level Order Reminder*) VANCO TROUGH @ 1,100 ON... 1100 ONCE XX ; Start 06/19/19 at 11:00; Stop 06/19/19 at 11:01 SHENG DONNELLY MD Jun 18, 2019 15:41
[2019-06-18] MEDS: FUROSEMIDE 20 MG INJ IV SCH (18:41)
[2019-06-18] MEDS: LACTOBACILLUS RHAMNOSUS CAP PO SCH (20:21)
[2019-06-18] MEDS: ATORVASTATIN 20 MG TAB GTB SCH (20:21)
[2019-06-18] MEDS: NORepinephrine 32 MG in DEXTROSE 5% 218 ML IV SCH (23:09)
[2019-06-19] VITALS (103 sets, daily range): BP systolic 83–189; BP diastolic 47–109; PULSE 63–101; RESP 4–38
[2019-06-19] MEDS: INSULIN ASPART [NOVOLOG] 3 ML PEN SC SCH ×6 (00:56→20:44)
[2019-06-19] MEDS: LEVALBUTEROL (HFA) 15 GM INHALER INH SCH ×4 (01:28→19:48)
[2019-06-19] MEDS: IPRATROPIUM (HFA) 12.9 GM INHALER INH SCH ×4 (01:28→19:48)
[2019-06-19] MEDS: FUROSEMIDE 20 MG INJ IV SCH (05:23)
[2019-06-19] MEDS: HYDROCORTISONE 100 MG INJ IV SCH ×3 (05:23→21:03)
--- NOTE | 2019-06-19 06:56 | PN ---
DATE: 06/18/2019 SUBJECTIVE: No acute changes overnight. The patient is on Levophed at 3 mcg. Tolerates tube feedin gs. No fevers. WBC 17.1, platelets 66, neutrophils 94.8, BUN 41, creatinine 0.69. DIAGNOSTICS: Chest x-ray this morning revealed increased bilateral interstitial and alveolar infiltr ates. INDWELLINGS: Endotracheal tube, PEG, Dial, PICC line. ANTIMICROBIALS: The patient remains on: 1. Cancidas. 2. Vancomycin. 3. Meropenem. PHYSICAL EXAMINATION: GENERAL: This is a chronically ill-appearing, elderly woman who is intubated, sedated, in no distres s. HEENT: Head atraumatic, normocephalic. Sclerae anicteric. Buccal mucosa dry. NECK: Supple. CHEST: Rise is symmetrical. Breath sounds diminished to bases. HEART: S1, S2. ABDOMEN: Soft, bowel sounds present. EXTREMITIES: Bilateral edema. ASSESSMENT: 1. Severe sepsis with shock. 2. Acute respiratory failure. 3. Healthcare-associated pneumonia with sputum culture growing Bridget albicans and methicillin-resi stant Staphylococcus aureus. 4. Klebsiella extended-spectrum beta-lactamase urinary tract infection. 5. Dysphagia. 6. Atrial fibrillation status post rapid ventricular response. 7. Non-ST elevation myocardial infarction. 8. Diabetes. 9. Dementia. PLAN: The patient remains unchanged. She was started on Solu-Cortef. Requirements for vasopressive support decreasing. Continue present care, antibiotics, vent management per Pulmonary. Dictated By: JACKIE CORTÉS [employer] for LARISSA FARAH MD NI/NTS Conf#: [id number] DID#: [id number] CC: MALINI GOMEZ MD;*EndCC*
[2019-06-19] MEDS: DOCUSATE SODIUM 10 MG/ML (10ML CUP) GTB SCH ×2 (09:00→20:18)
[2019-06-19] MEDS: POLYETHYLENE GLYCOL 17 GM PACKET GTB SCH (09:00)
[2019-06-19] MEDS: BUDESONIDE (NEB) 0.5MG/2ML AMP HHN SCH ×2 (09:30→19:48)
[2019-06-19] MEDS: LEVETIRACETAM (100 MG/ML) 5ML CUP GTB SCH ×2 (09:38→20:21)
[2019-06-19] MEDS: OLANZAPINE 5 MG TAB GTB SCH (09:39)
[2019-06-19] MEDS: AMIODARONE 200 MG TAB GTB SCH (09:39)
[2019-06-19] MEDS: FLUVOXAMINE MALEATE 25 MG TABLET GTB SCH (09:39)
[2019-06-19] MEDS: ASPIRIN 81 MG TAB PEG SCH (09:39)
[2019-06-19] MEDS: LACTOBACILLUS RHAMNOSUS CAP PO SCH ×3 (09:39→20:20)
[2019-06-19] MEDS: BALSAM PERU/CASTOR OIL 60 GM TUBE TOP SCH (09:40)
[2019-06-19] MEDS: MEROPENEM 1 GM/50ML(PMX) 50 ML IVPB SCH ×2 (09:40→20:19)
[2019-06-19] MEDS: INSULIN GLARGINE [LANTus] (100 UNITS/ML) SYG SC SCH (09:47)
--- NOTE | 2019-06-19 09:48 | CONS ---
Assessment/Plan Assessment/Plan Assessment/Plan (Daily) Ventilator setting; AC of 20, tidal volume 500, PEEP of 10, 100% FiO2. Patient is currently on Levophed 2 mics per minute, fentanyl 50 mics per hour, propofol 10 mics per kilogram per minute. Chest x-ray showing diffuse bilateral infiltrates with an ARDS pattern. Assessment recommendations; 1. Patient admitted with severe bilateral pneumonia with severe hypoxemia with ARDS. No interval improvement despite very aggressive antimicrobial regimen. 2. Possibly low-grade DIC with anemia and thrombocytopenia. 3. Proximal atrial fibrillation, currently in sinus rhythm. 4. Mild hypotension. Continue current supportive care. Prognosis is very poor. Palliative care should be considered. Consultation Date/Type/Reason Admit Date/Time Jun 10, 2019 at 12:38 Initial Consult Date 06/11/19 Type of Consult Pulmonary/critical care Patient is an 84-year-old [place] lady who was transferred to to the hospital [facility] with hypoxemia. Upon evaluation patient is been diagnosed with sepsis due to pneumonia. Patient has advanced dementia and is unable to give any history by herself whatsoever. Patient however is appearing tachypneic. Past medical history; 1. History of chronic atrial fibrillation. 2. Advanced dementia. 3. History of G-tube placement. 4. History of diabetes. 5. History of hypertension. Medications; reviewed. Allergies; none. Social history, family history, occupational history is are not available. Review of systems; unable to be obtained. General exam; elderly woman, on BiPAP. Noncommunicative. Tachypneic. Requesting Provider: MALINI GOMEZ Date/Time of Note DATE: 06/19/19 TIME: 09:46 24 HR Interval Summary Free Text/Dictation Patient condition is critical. On 100% FiO2. General exam; elderly woman, orally intubated. Sedated. Currently in no distress. Exam/Review of Systems Exam Vitals Vital Signs Date Temp Pulse Resp B/P (MAP) Pulse Ox O2 O2 Flow FiO2 Time Delivery Rate 06/19/19 88 21 119/66 100 07:15 (83) 06/19/19 Mechanical 07:00 Ventilator 06/19/19 100 05:00 06/19/19 98.1 00:00 Intake and Output 06/18/19 06/18/19 06/19/19 1515:00 23:00 07:00 IntakeIntake Total 866.248 ml 877.776 ml 474.246 ml OutputOutput Total 860 ml 645 ml 470 ml BalanceBalance 6.248 ml 232.776 ml 4.246 ml Exam H ENT exam; supple neck, no JVD. No lymphadenopathy. Midline trachea. No thyromegaly. Orally intubated. Patient has fair dentition. No neck masses. Chest exam; diminished breath sounds bilaterally. S1-S2 audible, no murmurs. Regular rhythm. Abdomen exam; soft, no organomegaly. Bowel sounds are audible. Extremity exam; no peripheral edema. DIE CASTER exam; patient is sedated. Results Result Diagram: 06/19/19 0503 06/19/19 0503 Results 24hrs Laboratory Tests Test 06/18/19 13:39 06/18/19 16:44 06/18/19 20:26 06/19/19 00:52 Bedside Glucose 215 188 184 162 Test 06/19/19 05:03 06/19/19 09:44 White Blood Count 22.7 #H Red Blood Count 2.53 L Hemoglobin 7.7 L Hematocrit 24.1 L Mean Corpuscular 95.3 Volume Mean Corpuscular 30.4 Hemoglobin Mean Corpuscular 32.0 Hemoglobin Concent Red Cell 14.7 H Distribution Width Platelet Count 63 L Mean Platelet Volume 11.1 H Immature 1.100 H Granulocytes % Neutrophils % 94.9 H Lymphocytes % 2.1 L Monocytes % 1.8 Eosinophils % 0.0 Basophils % 0.1 Nucleated Red Blood 0.0 Cells % Immature 0.250 H Granulocytes # Neutrophils # 21.6 H Lymphocytes # 0.5 L Monocytes # 0.4 Eosinophils # 0.0 Basophils # 0.0 Nucleated Red Blood 0.0 Cells # Sodium Level 144 Potassium Level 3.6 Chloride Level 107 Carbon Dioxide Level 32 H Anion Gap 5 Blood Urea Nitrogen 49 H Creatinine 0.81 Glucose Level 131 # Calcium Level 8.0 L Phosphorus Level 4.9 Magnesium Level 2.3 Albumin 1.9 L Bedside Glucose 142 Medications Medication Current Medications IV Flush (NS 3 ml) 3 ml PER PROTOCOL IV ; Start 06/10/19 at 12:00 Ondansetron HCl (Zofran Inj) 4 mg Q6H PRN IV NAUSEA/VOMITING; Start 06/10/19 at 12:00 Acetaminophen (Tylenol Tab) 650 mg Q6H PRN PO .PAIN 1-3 OR TEMP Last administered on 06/13/19at 15:52; Admin Dose 650 MG; Start 06/10/19 at 12:00 Acetaminophen/ Hydrocodone Bitart ([place] (5/325)) 1 tab Q6H PRN PO .PAIN 4-6; Start 06/10/19 at 12:00 Morphine Sulfate (morphine) 2 mg Q4H PRN IV .PAIN 7-10 Last administered on 06/15/19at 16:57; Admin Dose 2 MG; Start 06/10/19 at 12:00 Vancomycin HCl (Vanco Iv Per Pharmacy) VANCOMYCIN PER PHARMACY PER PROTOCOL XX ; Start 06/10/19 at 12:30 Amiodarone HCl (Cordarone) 100 mg DAILY GTB Last administered on 06/18/19at 08:25; Admin Dose 100 MG; Start 06/11/19 at 09:00 Atorvastatin Calcium (Lipitor) 20 mg QHS GTB Last administered on 06/18/19at 20:21; Admin Dose 20 MG; Start 06/10/19 at 21:00 Levetiracetam (Keppra Liquid) 500 mg BID GTB Last administered on 06/18/19at 20:21; Admin Dose 500 MG; Start 06/10/19 at 21:00 Olanzapine (Zyprexa) 5 mg DAILY GTB Last administered on 06/18/19at 08:24; Admin Dose 5 MG; Start 06/11/19 at 09:00 Polyethylene Glycol (Miralax) 17 gm DAILY GTB Last administered on 06/15/19at 09:04; Admin Dose 17 GM; Start 06/11/19 at 09:00 Miscellaneous Information 1 ea NOTE XX ; Start 06/10/19 at 14:00 Glucose (Glutose) 15 gm Q15M PRN PO DECREASED GLUCOSE; Start 06/10/19 at 14:00 Glucose (Glutose) 22.5 gm Q15M PRN PO DECREASED GLUCOSE; Start 06/10/19 at 14:00 Dextrose (D50w Syringe) 25 ml Q15M PRN IV DECREASED GLUCOSE; Start 06/10/19 at 14:00 Dextrose (D50w Syringe) 50 ml Q15M PRN IV DECREASED GLUCOSE; Start 06/10/19 at 14:00 Glucagon (Glucagen) 1 mg Q15M PRN IM DECREASED GLUCOSE; Start 06/10/19 at 14:00 Glucose (Glutose) 15 gm Q15M PRN BUCCAL DECREASED GLUCOSE; Start 06/10/19 at 14:00 Budesonide (Pulmicort (Neb)) 0.5 mg BID RESP THERAPY HHN Last administered on 06/18/19 19:35; Admin Dose 0.5 MG; Start 06/10/19 at 20:00 IV Flush (NS 10 ml) 10 ml [id number] PRN IV Line Patency; Start 06/10/19 at 16:00 Fluvoxamine Maleate (Fluvoxamine Maleate) 25 mg DAILY GTB Last administered on 06/18/19 08:24; Admin Dose 25 MG; Start 06/11/19 at 09:00 Aspirin (Aspirin) 81 mg DAILY PEG Last administered on 06/18/19 08:24; Admin Dose 81 MG; Start 06/11/19 at 09:00 Heparin Sodium (Porcine) (Heparin (5000 Units/1ml)) 5,000 unit Q8 SC Last administered on 06/14/19 06:01; Admin Dose 5,000 UNIT; Start 06/11/19 at 14:00; Status Hold Ipratropium [place] (Atrovent 0.02% (Neb)) 0.5 mg Q4H RESP THERAPY PRN HHN SHORTNESS OF BREATH; Start 06/12/19 at 10:00 Levalbuterol (Xopenex Neb) 1.25 mg Q4H RESP THERAPY PRN HHN shortness of breath; Start 06/12/19 at 10:00 Fentanyl 100 ml @ 2.5 mls/hr TITRATE IV Last administered on 06/18/19 16:42; Admin Dose 5 MLS/HR; Start 06/12/19 at 10:00 Phenylephrine HCl 80 mg/Dextrose 250 ml @ 18.75 mls/ hr TITRATE IV Last administered on 06/16/19 08:39; Admin Dose 15.1 MLS/HR; Start 06/12/19 at 14:00 Levalbuterol (Xopenex Hfa) 4 puff Q6H RESP THERAPY INH Last administered on 06/19/19 08:25; Admin Dose 4 PUFF; Start 06/12/19 at 20:00 Ipratropium [place] (Atrovent Hfa) 4 puff Q6H RESP THERAPY INH Last administered on 06/19/19 08:25; Admin Dose 4 PUFF; Start 06/12/19 at 20:00 Norepinephrine 32 mg/Dextrose 250 ml @ 0.47 mls/hr TITRATE IV Last administered on 06/18/19 23:09; Admin Dose 0.94 MLS/HR; Start 06/13/19 at 08:00 Meropenem/Sodium Chloride 50 ml @ 100 mls/hr Q12 IVPB Last administered on 06/18/19 20:21; Admin Dose 100 MLS/HR; Start 06/13/19 at 14:00 Docusate Sodium (Colace Liquid Cup) 100 mg BID GTB Last administered on 06/18/19 20:21; Admin Dose 100 MG; Start 06/14/19 at 12:30 Potassium Chloride 50 ml @ 50 mls/hr K PROTOCOL PRN IVPB PENDING LAB VALUE; Start 06/15/19 at 09:00 Vancomycin/Sodium Chloride 250 ml @ 125 mls/hr Q24H IVPB Last administered on 06/18/19 13:28; Admin Dose 125 MLS/HR; Start 06/16/19 at 12:00 Insulin Aspart (Novolog Insulin Pen) NOVOLOG *MILD* ALGORI... Q4 SC Last admini stered on 06/19/19 04:46; Admin Dose 1 UNIT; Start 06/16/19 at 21:00 Insulin Glargine (Lantus) 15 units DAILY@0800 SC Last administered on 06/18/19 08:30; Admin Dose 15 UNITS; Start 06/18/19 at 08:00 Caspofungin 50 mg/ Sodium Chloride 250 ml @ 250 mls/hr Q24H IVPB Last administered on 06/18/19 13:30; Admin Dose 250 MLS/HR; Start 06/18/19 at 13:00 Midazolam HCl 50 ml @ 1 mls/hr TITRATE IV Last administered on 06/18/19 09:43; Admin Dose 2 MLS/HR; Start 06/17/19 at 15:30 Hydrocortisone (Solu-Cortef) 50 mg Q8 IV Last administered on 06/19/19 05:23; Admin Dose 50 MG; Start 06/18/19 at 14:00 Propofol 100 ml @ 1.656 mls/ hr Q12H IV Last administered on 06/18/19at 13:22; Admin Dose 1.656 MLS/HR; Start 06/18/19 at 10:00 Miscellaneous Information (*Rx Drug Level Order Reminder*) VANCO TROUGH @ 1,100 ON... 1100 ONCE XX ; Start 06/19/19 at 11:00; Stop 06/19/19 at 11:01 Furosemide (Lasix) 20 mg BID DIURETICS IV Last administered on 06/19/19at 05:23; Admin Dose 20 MG; Start 06/18/19 at 18:00 Lactobacillus Acidophilus/ Rhamnosus (Culturelle) 1 cap TID PO Last administered on 06/18/19at 20:21; Admin Dose 1 CAP; Start 06/18/19 at 21:00 CHARAN LAUREANO Jun 19, 2019 09:48
--- NOTE | 2019-06-19 10:24 | CONS ---
Assessment/Plan Assessment/Plan Assessment/Plan (Daily) 1. acute Hypernatremia due to severe dehydration -resolved 2. acute Hyperkalemia due to FLOYD - Resolved 3. acute kidney injury on CKD III due to ATN from sepsis and Prerenal azotemia 4 . Septic shock due to multifocal PNA and UTI 5. Acute hypoxic respiratory failure due to PNA and Septic shock - Failed BIPAP- Intubated on 06/12/19 , 6. H/O severe dementia 7. H/O HTN 8. H/O HL 9. SNF resident 10. acute on chronic encephalopathy 11 h/o Dysphagia S/p G tube placement 12. Hypocalcemia with Ca 6.7 13. UTI with Urine cx growing ESBL Klebsiella Plan: BUN/Cr 49/0.81 , other electrolytes normal today,pt is on Low dose levophed 5 mcg currenlty on IV abx meropenem for ESBL Klebsiella UTI, Sputum Cx grew Bridget Albicans and MRSA- pt is on IV cancidas, and IV vancomycin- Renally dose all abx and monitor electrolytes Ventilator Management as per pulmonary DNR code status Ca 8.0 today, will give calcium gluconate if Ca drops lwer than 7.0 will follow up Consultation Date/Type/Reason Admit Date/Time Jun 10, 2019 at 12:38 Initial Consult Date 06/11/19 Type of Consult NEPHROLOGY Requesting Provider: MALINI GOMEZ Date/Time of Note DATE: 06/19/19 TIME: 10:24 Exam/Review of Systems Exam Vitals Vital Signs Date Temp Pulse Resp B/P (MAP) Pulse Ox O2 O2 Flow FiO2 Time Delivery Rate 06/19/19 88 21 119/66 100 07:15 (83) 06/19/19 Mechanical 07:00 Ventilator 06/19/19 100 05:00 06/19/19 98.1 00:00 Intake and Output 06/18/19 06/18/19 06/19/19 1515:00 23:00 07:00 IntakeIntake Total 866.248 ml 877.776 ml 474.246 ml OutputOutput Total 860 ml 645 ml 470 ml BalanceBalance 6.248 ml 232.776 ml 4.246 ml Exam General: intubated on ventilator HEENT: ET tube in place, NG tube Neck: Supple, + JVD , no LAD Respiratory: Bilateral coarse BS+, basilar wheezing Cardiovascular: S1 S2 tachycardia, no murmur Gastrointestinal: soft, NT, ND, Thin abdomen, BS+, + PEG tube in place Neurological: sedated intubated on ventilator Results Result Diagram: 06/19/19 0503 06/19/19 0503 Results 24hrs Laboratory Tests Test 06/18/19 13:39 06/18/19 16:44 06/18/19 20:26 06/19/19 00:52 Bedside Glucose 215 188 184 162 Test 06/19/19 04:33 06/19/19 05:03 06/19/19 09:44 Bedside Glucose 141 142 White Blood Count 22.7 #H Red Blood Count 2.53 L Hemoglobin 7.7 L Hematocrit 24.1 L Mean Corpuscular 95.3 Volume Mean Corpuscular 30.4 Hemoglobin Mean Corpuscular 32.0 Hemoglobin Concent Red Cell 14.7 H Distribution Width Platelet Count 63 L Mean Platelet Volume 11.1 H Immature 1.100 H Granulocytes % Neutrophils % 94.9 H Lymphocytes % 2.1 L Monocytes % 1.8 Eosinophils % 0.0 Basophils % 0.1 Nucleated Red Blood 0.0 Cells % Immature 0.250 H Granulocytes # Neutrophils # 21.6 H Lymphocytes # 0.5 L Monocytes # 0.4 Eosinophils # 0.0 Basophils # 0.0 Nucleated Red Blood 0.0 Cells # Sodium Level 144 Potassium Level 3.6 Chloride Level 107 Carbon Dioxide Level 32 H Anion Gap 5 Blood Urea Nitrogen 49 H Creatinine 0.81 Glucose Level 131 # Calcium Level 8.0 L Phosphorus Level 4.9 Magnesium Level 2.3 Albumin 1.9 L Medications Medication Current Medications IV Flush (NS 3 ml) 3 ml PER PROTOCOL IV ; Start 06/10/19 at 12:00 Ondansetron HCl (Zofran Inj) 4 mg Q6H PRN IV NAUSEA/VOMITING; Start 06/10/19 at 12:00 Acetaminophen (Tylenol Tab) 650 mg Q6H PRN PO .PAIN 1-3 OR TEMP Last administered on 06/13/19at 15:52; Admin Dose 650 MG; Start 06/10/19 at 12:00 Acetaminophen/ Hydrocodone Bitart ([place] (5/325)) 1 tab Q6H PRN PO .PAIN 4-6; Start 06/10/19 at 12:00 Morphine Sulfate (morphine) 2 mg Q4H PRN IV .PAIN 7-10 Last administered on 06/15/19 16:57; Admin Dose 2 MG; Start 06/10/19 at 12:00 Vancomycin HCl (Vanco Iv Per Pharmacy) VANCOMYCIN PER PHARMACY PER PROTOCOL XX ; Start 06/10/19 at 12:30 Amiodarone HCl (Cordarone) 100 mg DAILY GTB Last administered on 06/19/19 09:39; Admin Dose 100 MG; Start 06/11/19 at 09:00 Atorvastatin Calcium (Lipitor) 20 mg QHS GTB Last administered on 06/18/19 20:21; Admin Dose 20 MG; Start 06/10/19 at 21:00 Levetiracetam (Keppra Liquid) 500 mg BID GTB Last administered on 06/19/19 09:38; Admin Dose 500 MG; Start 06/10/19 at 21:00 Olanzapine (Zyprexa) 5 mg DAILY GTB Last administered on 06/19/19 09:39; Admin Dose 5 MG; Start 06/11/19 at 09:00 Polyethylene Glycol (Miralax) 17 gm DAILY GTB Last administered on 06/15/19at 09:04; Admin Dose 17 GM; Start 06/11/19 at 09:00 Miscellaneous Information 1 ea NOTE XX ; Start 06/10/19 at 14:00 Glucose (Glutose) 15 gm Q15M PRN PO DECREASED GLUCOSE; Start 06/10/19 at 14:00 Glucose (Glutose) 22.5 gm Q15M PRN PO DECREASED GLUCOSE; Start 06/10/19 at 14:00 Dextrose (D50w Syringe) 25 ml Q15M PRN IV DECREASED GLUCOSE; Start 06/10/19 at 14:00 Dextrose (D50w Syringe) 50 ml Q15M PRN IV DECREASED GLUCOSE; Start 06/10/19 at 14:00 Glucagon (Glucagen) 1 mg Q15M PRN IM DECREASED GLUCOSE; Start 06/10/19 at 14:00 Glucose (Glutose) 15 gm Q15M PRN BUCCAL DECREASED GLUCOSE; Start 06/10/19 at 14:00 Budesonide (Pulmicort (Neb)) 0.5 mg BID RESP THERAPY HHN Last administered on 06/18/19at 19:35; Admin Dose 0.5 MG; Start 06/10/19 at 20:00 IV Flush (NS 10 ml) 10 ml [id number] PRN IV Line Patency; Start 06/10/19 at 16:00 Fluvoxamine Maleate (Fluvoxamine Maleate) 25 mg DAILY GTB Last administered on 06/19/19 09:39; Admin Dose 25 MG; Start 06/11/19 at 09:00 Aspirin (Aspirin) 81 mg DAILY PEG Last administered on 06/19/19 09:39; Admin Dose 81 MG; Start 06/11/19 at 09:00 Heparin Sodium (Porcine) (Heparin (5000 Units/1ml)) 5,000 unit Q8 SC Last administered on 06/14/19 06:01; Admin Dose 5,000 UNIT; Start 06/11/19 at 14:00; Status Hold Ipratropium [place] (Atrovent 0.02% (Neb)) 0.5 mg Q4H RESP THERAPY PRN HHN SHORTNESS OF BREATH; Start 06/12/19 at 10:00 Levalbuterol (Xopenex Neb) 1.25 mg Q4H RESP THERAPY PRN HHN shortness of breath; Start 06/12/19 at 10:00 Fentanyl 100 ml @ 2.5 mls/hr TITRATE IV Last administered on 06/18/19 16:42; Admin Dose 5 MLS/HR; Start 06/12/19 at 10:00 Phenylephrine HCl 80 mg/Dextrose 250 ml @ 18.75 mls/ hr TITRATE IV Last administered on 06/16/19 08:39; Admin Dose 15.1 MLS/HR; Start 06/12/19 at 14:00 Levalbuterol (Xopenex Hfa) 4 puff Q6H RESP THERAPY INH Last administered on 06/19/19 08:25; Admin Dose 4 PUFF; Start 06/12/19 at 20:00 Ipratropium [place] (Atrovent Hfa) 4 puff Q6H RESP THERAPY INH Last administered on 06/19/19 08:25; Admin Dose 4 PUFF; Start 06/12/19 at 20:00 Norepinephrine 32 mg/Dextrose 250 ml @ 0.47 mls/hr TITRATE IV Last administered on 06/18/19 23:09; Admin Dose 0.94 MLS/HR; Start 06/13/19 at 08:00 Meropenem/Sodium Chloride 50 ml @ 100 mls/hr Q12 IVPB Last administered on 06/19/19 09:40; Admin Dose 100 MLS/HR; Start 06/13/19 at 14:00 Docusate Sodium (Colace Liquid Cup) 100 mg BID GTB Last administered on 06/18/19 20:21; Admin Dose 100 MG; Start 06/14/19 at 12:30 Potassium Chloride 50 ml @ 50 mls/hr K PROTOCOL PRN IVPB PENDING LAB VALUE; Start 06/15/19 at 09:00 Vancomycin/Sodium Chloride 250 ml @ 125 mls/hr Q24H IVPB Last administered on 06/18/19 13:28; Admin Dose 125 MLS/HR; Start 06/16/19 at 12:00 Insulin Aspart (Novolog Insulin Pen) NOVOLOG *MILD* ALGORI... Q4 SC Last a dministered on 06/19/19 09:48; Admin Dose 1 UNIT; Start 06/16/19 at 21:00 Insulin Glargine (Lantus) 15 units DAILY@0800 SC Last administered on 06/19/19 09:47; Admin Dose 15 UNITS; Start 06/18/19 at 08:00 Caspofungin 50 mg/ Sodium Chloride 250 ml @ 250 mls/hr Q24H IVPB Last administered on 06/18/19 13:30; Admin Dose 250 MLS/HR; Start 06/18/19 at 13:00 Midazolam HCl 50 ml @ 1 mls/hr TITRATE IV Last administered on 06/18/19 09:43; Admin Dose 2 MLS/HR; Start 06/17/19 at 15:30 Hydrocortisone (Solu-Cortef) 50 mg Q8 IV Last administered on 06/19/19 05:23; Admin Dose 50 MG; Start 06/18/19 at 14:00 Propofol 100 ml @ 1.656 mls/ hr Q12H IV Last administered on 06/18/19 13:22; Admin Dose 1.656 MLS/HR; Start 06/18/19 at 10:00 Miscellaneous Information (*Rx Drug Level Order Reminder*) VANCO TROUGH @ 1,100 ON... 1100 ONCE XX ; Start 06/19/19 at 11:00; Stop 06/19/19 at 11:01 Furosemide (Lasix) 20 mg BID DIURETICS IV Last administered on 06/19/19at 05:23; Admin Dose 20 MG; Start 06/18/19 at 18:00 Lactobacillus Acidophilus/ Rhamnosus (Culturelle) 1 cap TID PO Last administered on 06/19/19at 09:39; Admin Dose 1 CAP; Start 06/18/19 at 21:00 GERMAN FELIX MD Jun 19, 2019 10:24
[2019-06-19] MEDS: PROPOFOL 100 ML IV SCH ×2 (10:59→21:03)
[2019-06-19] MEDS: CASPOFUNGIN 50 MG in SOD CHLORIDE 0.9% 250 ML IVPB SCH (14:51)
[2019-06-19] MEDS: FENTAnyl (DRIP) 1000 mcg/100mL 100 ML IV SCH (15:02)
--- NOTE | 2019-06-19 15:49 | PN ---
Date/Time of Note Date/Time of Note DATE: 06/19/19 TIME: 15:43 Assessment/Plan VTE Prophylaxis Risk score (from Nsg)>0 risk: 14 SCD applied (from Nsg): Yes Pharmacological prophylaxis: heparin Lines/Catheters IV Catheter Type (from Nrsg): PICC Line Central line still needed: Yes Urinary Cath still in place: Yes Reason Cath still needed: terminal illness/intractable pain Assessment/Plan Assessment/Plan 1. Acute hypoxic respiratory failure, ARDS secondary to sepsis - Still with bilateral infiltrates on CXR - Pulm on board and appreciate recommendations - wean vent settings as able - Continue IV antibiotics 2. Multifocal pneumonia - ID on board and appreciate recommendations - seen on CXR - Continue current antibiotics 3. Septic shock versus severe sepsis - continue on pressor support with MAP >65. Will wean as tolerated. Currently remains on 1 pressors 4. Atrial fibrillation with RVR - stable - back in sinus rhythm - Cardiology consultation appreciated 5. Non-ST elevated ND - Cardiology consultation appreciated and will continue current medications - Very mild elevation - continue aspirin and statin 6. Hypocalcemia- resolved 7. Thrombocytopenia-stable - Very likely due to septic shock - Fibrinogen is elevated, unlikely DIC 8. Chronic dysphasia - Patient has PEG tube 9. Diabetes mellitus - continue on Lantus and ISS - sugars well controlled 10. Chronic encephalopathy - CT of the brain initially showed alarming findings however there appears to be a mixup with patient's name, patient's actual name is Trey Roberts, bright [id number]. Neurosurgeon was initially consulted for possible brain bleed and ot her findings however when comparing to the patient's actual chart in 2013, neurosurgeon reviewed the CT and MRI and found a similar findings with no acute emergent change. - Monitor closely, patient appears to be at baseline 11. Dyslipidemia - Continue home meds 12. Mood disorder - Continue home meds 13. Chronic kidney disease - resolved - nephrology consultation appreciated 14. Failure to thrive - now DNR per families request 15. Anasarca - increased Lasix and will monitor renal function closely 16. Disposition - Continue monitoring in ICU while on vent support. >35 minutes of critical care spent with patient at bedside. SonGhassan, updated over the phone Result Diagram: 06/19/19 0503 06/19/19 0503 Results 24hrs Laboratory Tests Test 06/18/19 16:44 06/18/19 20:26 06/19/19 00:52 06/19/19 04:33 Bedside Glucose 188 184 162 141 Test 06/19/19 05:03 06/19/19 09:44 06/19/19 10:58 06/19/19 14:59 White Blood Count 22.7 #H Red Blood Count 2.53 L Hemoglobin 7.7 L Hematocrit 24.1 L Mean Corpuscular 95.3 Volume Mean Corpuscular 30.4 Hemoglobin Mean Corpuscular 32.0 Hemoglobin Concent Red Cell 14.7 H Distribution Width Platelet Count 63 L Mean Platelet Volume 11.1 H Immature 1.100 H Granulocytes % Neutrophils % 94.9 H Lymphocytes % 2.1 L Monocytes % 1.8 Eosinophils % 0.0 Basophils % 0.1 Nucleated Red Blood 0.0 Cells % Immature 0.250 H Granulocytes # Neutrophils # 21.6 H Lymphocytes # 0.5 L Monocytes # 0.4 Eosinophils # 0.0 Basophils # 0.0 Nucleated Red Blood 0.0 Cells # Sodium Level 144 Potassium Level 3.6 Chloride Level 107 Carbon Dioxide Level 32 H Anion Gap 5 Blood Urea Nitrogen 49 H Creatinine 0.81 Glucose Level 131 # Calcium Level 8.0 L Phosphorus Level 4.9 Magnesium Level 2.3 Albumin 1.9 L Bedside Glucose 142 123 Vancomycin Level 19.6 Trough Subjective 24 Hr Interval Summary Free Text/Dictation Patient remains intubated and sedated. No acute overnight events. Still on pressor support. Exam/Review of Systems Exam Vitals Vital Signs Date Temp Pulse Resp B/P (MAP) Pulse Ox O2 O2 Flow FiO2 Time Delivery Rate 06/19/19 83 23 100 90 13:30 06/19/19 119/66 07:15 (83) 06/19/19 Mechanical 07:00 Ventilator 06/19/19 98.1 00:00 Intake and Output 06/18/19 06/18/19 06/19/19 1515:00 23:00 07:00 IntakeIntake Total 866.248 ml 877.776 ml 474.246 ml OutputOutput Total 860 ml 645 ml 470 ml BalanceBalance 6.248 ml 232.776 ml 4.246 ml Exam General: Patient is intubated and sedated. no acute distress Head: Normocephalic atraumatic Eyes: EOMI, pupils reactive to light Neck: Supple, nontender, midline Respiratory: Coarse to auscultation bilaterally. no wheezing Cardiovascular: Regular rate and rhythm, no obvious murmurs Gastrointestinal: non-tender to palpation, bowel sounds heard. PEG in place Ext: diffuse anasarca. no cyanosis or clubbing skin: no rashes appreciated Results Results 24hrs Laboratory Tests Test 06/18/19 16:44 06/18/19 20:26 06/19/19 00:52 06/19/19 04:33 Bedside Glucose 188 184 162 141 Test 06/19/19 05:03 06/19/19 09:44 06/19/19 10:58 06/19/19 14:59 White Blood Count 22.7 #H Red Blood Count 2.53 L Hemoglobin 7.7 L Hematocrit 24.1 L Mean Corpuscular 95.3 Volume Mean Corpuscular 30.4 Hemoglobin Mean Corpuscular 32.0 Hemoglobin Concent Red Cell 14.7 H Distribution Width Platelet Count 63 L Mean Platelet Volume 11.1 H Immature 1.100 H Granulocytes % Neutrophils % 94.9 H Lymphocytes % 2.1 L Monocytes % 1.8 Eosinophils % 0.0 Basophils % 0.1 Nucleated Red Blood 0.0 Cells % Immature 0.250 H Granulocytes # Neutrophils # 21.6 H Lymphocytes # 0.5 L Monocytes # 0.4 Eosinophils # 0.0 Basophils # 0.0 Nucleated Red Blood 0.0 Cells # Sodium Level 144 Potassium Level 3.6 Chloride Level 107 Carbon Dioxide Level 32 H Anion Gap 5 Blood Urea Nitrogen 49 H Creatinine 0.81 Glucose Level 131 # Calcium Level 8.0 L Phosphorus Level 4.9 Magnesium Level 2.3 Albumin 1.9 L Bedside Glucose 142 123 Vancomycin Level 19.6 Trough Medications Medication Current Medications IV Flush (NS 3 ml) 3 ml PER PROTOCOL IV ; Start 06/10/19 at 12:00 Ondansetron HCl (Zofran Inj) 4 mg Q6H PRN IV NAUSEA/VOMITING; Start 06/10/19 at 12:00 Acetaminophen (Tylenol Tab) 650 mg Q6H PRN PO .PAIN 1-3 OR TEMP Last administered on 06/13/19at 15:52; Admin Dose 650 MG; Start 06/10/19 at 12:00 Acetaminophen/ Hydrocodone Bitart ([place] (5/325)) 1 tab Q6H PRN PO .PAIN 4-6; Start 06/10/19 at 12:00 Morphine Sulfate (morphine) 2 mg Q4H PRN IV .PAIN 7-10 Last administered on 06/15/19at 16:57; Admin Dose 2 MG; Start 06/10/19 at 12:00 Vancomycin HCl (Vanco Iv Per Pharmacy) VANCOMYCIN PER PHARMACY PER PROTOCOL XX ; Start 06/10/19 at 12:30 Amiodarone HCl (Cordarone) 100 mg DAILY GTB Last administered on 06/19/19 09:39; Admin Dose 100 MG; Start 06/11/19 at 09:00 Atorvastatin Calcium (Lipitor) 20 mg QHS GTB Last administered on 06/18/19 20:21; Admin Dose 20 MG; Start 06/10/19 at 21:00 Levetiracetam (Keppra Liquid) 500 mg BID GTB Last administered on 06/19/19 09:38; Admin Dose 500 MG; Start 06/10/19 at 21:00 Olanzapine (Zyprexa) 5 mg DAILY GTB Last administered on 06/19/19 09:39; Admin Dose 5 MG; Start 06/11/19 at 09:00 Polyethylene Glycol (Miralax) 17 gm DAILY GTB Last administered on 06/15/19 09:04; Admin Dose 17 GM; Start 06/11/19 at 09:00 Miscellaneous Information 1 ea NOTE XX ; Start 06/10/19 at 14:00 Glucose (Glutose) 15 gm Q15M PRN PO DECREASED GLUCOSE; Start 06/10/19 at 14:00 Glucose (Glutose) 22.5 gm Q15M PRN PO DECREASED GLUCOSE; Start 06/10/19 at 14:00 Dextrose (D50w Syringe) 25 ml Q15M PRN IV DECREASED GLUCOSE; Start 06/10/19 at 14:00 Dextrose (D50w Syringe) 50 ml Q15M PRN IV DECREASED GLUCOSE; Start 06/10/19 at 14:00 Glucagon (Glucagen) 1 mg Q15M PRN IM DECREASED GLUCOSE; Start 06/10/19 at 14:00 Glucose (Glutose) 15 gm Q15M PRN BUCCAL DECREASED GLUCOSE; Start 06/10/19 at 14:00 Budesonide (Pulmicort (Neb)) 0.5 mg BID RESP THERAPY HHN Last administered on 06/19/19 09:30; Admin Dose 0.5 MG; Start 06/10/19 at 20:00 IV Flush (NS 10 ml) 10 ml [id number] PRN IV Line Patency; Start 06/10/19 at 16:00 Fluvoxamine Maleate (Fluvoxamine Maleate) 25 mg DAILY GTB Last administered on 06/19/19 09:39; Admin Dose 25 MG; Start 06/11/19 at 09:00 Aspirin (Aspirin) 81 mg DAILY PEG Last administered on 06/19/19 09:39; Admin Dose 81 MG; Start 06/11/19 at 09:00 Heparin Sodium (Porcine) (Heparin (5000 Units/1ml)) 5,000 unit Q8 SC Last administered on 06/14/19 06:01; Admin Dose 5,000 UNIT; Start 06/11/19 at 14:00; Status Hold Ipratropium [place] (Atrovent 0.02% (Neb)) 0.5 mg Q4H RESP THERAPY PRN HHN SHORTNESS OF BREATH; Start 06/12/19 at 10:00 Levalbuterol (Xopenex Neb) 1.25 mg Q4H RESP THERAPY PRN HHN shortness of breath; Start 06/12/19 at 10:00 Fentanyl 100 ml @ 2.5 mls/hr TITRATE IV Last administered on 06/19/19 15:02; Admin Dose 5 MLS/HR; Start 06/12/19 at 10:00 Phenylephrine HCl 80 mg/Dextrose 250 ml @ 18.75 mls/ hr TITRATE IV Last administered on 06/16/19 08:39; Admin Dose 15.1 MLS/HR; Start 06/12/19 at 14:00 Levalbuterol (Xopenex Hfa) 4 puff Q6H RESP THERAPY INH Last administered on 06/19/19 13:25; Admin Dose 4 PUFF; Start 06/12/19 at 20:00 Ipratropium [place] (Atrovent Hfa) 4 puff Q6H RESP THERAPY INH Last administered on 06/19/19 13:25; Admin Dose 4 PUFF; Start 06/12/19 at 20:00 Norepinephrine 32 mg/Dextrose 250 ml @ 0.47 mls/hr TITRATE IV Last administered on 06/18/19 23:09; Admin Dose 0.94 MLS/HR; Start 06/13/19 at 08:00 Meropenem/Sodium Chloride 50 ml @ 100 mls/hr Q12 IVPB Last administered on 06/19/19 09:40; Admin Dose 100 MLS/HR; Start 06/13/19 at 14:00 Docusate Sodium (Colace Liquid Cup) 100 mg BID GTB Last administered on 06/18/19 20:21; Admin Dose 100 MG; Start 06/14/19 at 12:30 Potassium Chloride 50 ml @ 50 mls/hr K PROTOCOL PRN IVPB PENDING LAB VALUE; Start 06/15/19 at 09:00 Insulin Aspart (Novolog Insulin Pen) NOVOLOG *MILD* ALGORI... Q4 SC Last administered on 06/19/19 09:48; Admin Dose 1 UNIT; Start 06/16/19 at 21:00 Insulin Glargine (Lantus) 15 units DAILY@0800 SC Last administered on 06/19/19 09:47; Admin Dose 15 UNITS; Start 06/18/19 at 08:00 Caspofungin 50 mg/ Sodium Chloride 250 ml @ 250 mls/hr Q24H IVPB Last administered on 06/19/19 14:51; Admin Dose 250 MLS/HR; Start 06/18/19 at 13:00 Midazolam HCl 50 ml @ 1 mls/hr TITRATE IV Last administered on 06/18/19 09:43; Admin Dose 2 MLS/HR; Start 06/17/19 at 15:30 Hydrocortisone (Solu-Cortef) 50 mg Q8 IV Last administered on 06/19/19 14:52; Admin Dose 50 MG; Start 06/18/19 at 14:00 Propofol 100 ml @ 1.656 mls/ hr Q12H IV Last administered on 06/19/19 10:59; Admin Dose 3.312 MLS/HR; Start 06/18/19 at 10:00 Lactobacillus Acidophilus/ Rhamnosus (Culturelle) 1 cap TID PO Last administered on 06/19/19 14:52; Admin Dose 1 CAP; Start 06/18/19 at 21:00 Vancomycin/Sodium Chloride 250 ml @ 125 mls/hr Q36H IVPB ; Start 06/19/19 at 21:00 Furosemide (Lasix) 40 mg BID DIURETICS IV ; Start 06/19/19 at 18:00 SHENG DONNELLY MD Jun 19, 2019 15:49
--- NOTE | 2019-06-19 16:03 | PN ---
DATE: 06/19/2019 SUBJECTIVE: No acute events overnight. The patient is still on low dose Levophed drip, intubated, s edated, in no distress. WBC today 22.7, H and H 7.7 and 24.1, platelets 63, neutrophils 94.9, BUN 49, creatinine 0.81. DIAGNOSTICS: Chest x-ray this morning revealed diffuse bilateral infiltrates unchanged. KUB showed no evidence of bowel dilatation or obstruction. INDWELLINGS: The endotracheal tube, NG tube, Dial catheter and PICC line. MICROBIOLOGY: Sputum culture grew Bridget albicans and MRSA. Urine culture on admission grew Klebsi fartun pneumoniae, ESBL. ANTIMICROBIALS: The patient is on: 1. Cancidas. 2. Meropenem. 3. Vancomycin. PHYSICAL EXAMINATION: GENERAL: This is a chronically ill-appearing, elderly woman who is in no distress. HEENT: Head atraumatic, normocephalic. NECK: Supple. Trachea midline. CHEST: Rise symmetrical. Breath sounds diminished to bases. HEART: S1, S2. ABDOMEN: Distended, soft. Bowel sounds hypoactive. EXTREMITIES: Bilateral edema. ASSESSMENT: 1. Severe sepsis with shock. 2. Healthcare-associated pneumonia. 3. Urinary tract infection. 4. Respiratory failure. 5. Atrial fibrillation, status post rapid ventricular response. 6. Diabetes. 7. Non-ST elevation myocardial infarction. PLAN: The patient remains unchanged. Continue present care and antibiotics. Agree with palliative care evaluation. Dictated By: JACKIE CORTÉS MERCHANDISE STOCKER for LARISSA FARAH MD NI/NTS Conf#: [id number] DID#: [id number] CC: MALINI GOMEZ MD;*EndCC*
[2019-06-19] MEDS: FUROSEMIDE 40 MG INJ IV SCH (19:02)
[2019-06-19] MEDS: ATORVASTATIN 20 MG TAB GTB SCH (20:21)
[2019-06-19] MEDS: VANCOMYCIN 750 MG (PMX) 250 ML IVPB SCH (20:45)
[2019-06-19] MEDS: POTASSIUM CHLORIDE 50 ML IVPB PRN (23:07)
[2019-06-20] VITALS (84 sets, daily range): BP systolic 74–141; BP diastolic 50–78; PULSE 61–119; RESP 0–28
[2019-06-20] MEDS: POTASSIUM CHLORIDE 50 ML IVPB PRN (01:34)
[2019-06-20] MEDS: INSULIN ASPART [NOVOLOG] 3 ML PEN SC SCH ×6 (01:36→20:11)
[2019-06-20] MEDS: LEVALBUTEROL (HFA) 15 GM INHALER INH SCH ×4 (02:26→21:04)
[2019-06-20] MEDS: IPRATROPIUM (HFA) 12.9 GM INHALER INH SCH ×4 (02:26→21:04)
[2019-06-20] MEDS: HYDROCORTISONE 100 MG INJ IV SCH ×3 (05:24→21:11)
[2019-06-20] MEDS: FUROSEMIDE 40 MG INJ IV SCH ×2 (05:24→18:06)
[2019-06-20] MEDS: PROPOFOL 100 ML IV SCH ×2 (06:55→20:03)
[2019-06-20] MEDS: FENTAnyl (DRIP) 1000 mcg/100mL 100 ML IV SCH (06:58)
--- NOTE | 2019-06-20 08:39 | CONS ---
Assessment/Plan Assessment/Plan Assessment/Plan (Daily) 1. acute Hypernatremia due to severe dehydration -resolved 2. acute Hyperkalemia due to FLOYD - Resolved 3. acute kidney injury on CKD III due to ATN from sepsis and Prerenal azotemia 4 . Septic shock due to multifocal PNA and UTI 5. Acute hypoxic respiratory failure due to PNA and Septic shock - Failed BIPAP- Intubated on 06/12/19 , 6. H/O severe dementia 7. H/O HTN 8. H/O HL 9. SNF resident 10. acute on chronic encephalopathy 11 h/o Dysphagia S/p G tube placement 12. Hypocalcemia with Ca 6.7 13. UTI with Urine cx growing ESBL Klebsiella Plan: BUN/Cr 59/0.81, K 5.6 -will give Kayexalate 15 gram PO x 1 dose currenlty on IV abx meropenem for ESBL Klebsiella UTI, Sputum Cx grew Bridget Albicans and MRSA- pt is on IV cancidas, and IV vancomycin- Renally dose all abx and monitor electrolytes Ventilator Management as per pulmonary DNR code status lasix 40mg IV BID for diuresis Ca 7.9 today, will give calcium gluconate if Ca drops lwer than 7.0 will follow up Consultation Date/Type/Reason Admit Date/Time Jun 10, 2019 at 12:38 Initial Consult Date 06/11/19 Type of Consult NEPHROLOGY Requesting Provider: MALINI GOMEZ Date/Time of Note DATE: 06/20/19 TIME: 08:39 Exam/Review of Systems Exam Vitals Vital Signs Date Temp Pulse Resp B/P (MAP) Pulse Ox O2 O2 Flow FiO2 Time Delivery Rate 06/20/19 89 22 104/65 97 06:45 (78) 06/20/19 Mechanical 06:00 Ventilator 06/20/19 80 05:24 06/20/19 96.8 04:00 Intake and Output 06/19/19 06/19/19 06/20/19 1515:00 23:00 07:00 IntakeIntake Total 556 ml 900.05 ml 782.28 ml OutputOutput Total 320 ml 575 ml 445 ml BalanceBalance 236 ml 325.05 ml 337.28 ml Exam General: intubated on ventilator HEENT: ET tube in place, NG tube Neck: Supple, + JVD , no LAD Respiratory: Bilateral coarse BS+, basilar wheezing Cardiovascular: S1 S2 tachycardia, no murmur Gastrointestinal: soft, NT, ND, Thin abdomen, BS+, + PEG tube in place Neurological: sedated intubated on ventilator Results Result Diagram: 06/20/19 0448 06/20/19 0456 Results 24hrs Laboratory Tests Test 06/19/19 09:44 06/19/19 10:58 06/19/19 14:59 06/19/19 18:45 Bedside Glucose 142 123 114 Vancomycin Level 19.6 Trough Test 06/19/19 20:44 06/19/19 23:00 06/20/19 01:33 06/20/19 04:48 Bedside Glucose 113 165 Blood Gas Blood arterial Specimen Source Arterial Blood 06/19/2019 11:37: Date Drawn 52 PM Arterial Blood pH 7.498 H (Temp corrected) Arterial Blood 38.8 pCO2 (Temp correct) Arterial Blood 66.3 L pO2 (Temp corrected) Arterial Blood 29.4 H HCO3 Arterial Blood 5.8 H Base Excess Arterial Blood 92.6 L Oxygen Saturation James Test ACCEPTAB Arterial Blood Right Radial Gas Puncture Site Arterial 0.3 Blood Carboxyhemo globin Arterial Blood 0.3 Methemoglobin Blood Gas A-a O2 318.8 H Differential Oxyhemoglobin 92.0 L Percent Blood Gas 37.0 Temperature Blood Gas 20.0 Respiration Rate Blood Gas Actual 20 Respiration Rate Blood Gas VENT - AC Modality FiO2 60.0 Blood Gas Tidal 500.0 Volume Blood Gas Mean 19 Airway Pressure Blood Gas Low 10.0 PEEP Setting Blood Gas 44.0 Inspiratory Pressure Blood Gas JENNIE CAMACHO Notified Whom Blood Gas 06/19/2019 11:49: Notified Time 18 PM White Blood Count 26.2 H Red Blood Count 2.67 L Hemoglobin 8.2 L Hematocrit 25.2 L Mean Corpuscular 94.4 Volume Mean Corpuscular 30.7 Hemoglobin Mean Corpuscular 32.5 Hemoglobin Concen t Red Cell 14.6 H Distribution Width Platelet Count 73 L Mean Platelet 12.0 H Volume Immature 1.100 H Granulocytes % Neutrophils % Lymphocytes % Monocytes % Eosinophils % Basophils % Nucleated Red 0.0 Blood Cells % Immature 0.280 H Granulocytes # Neutrophils # Lymphocytes # Monocytes # Eosinophils # Basophils # Nucleated Red Blood Cells # Test 06/20/19 04:56 06/20/19 05:02 06/20/19 08:34 Sodium Level 143 Potassium Level 5.6 #H Chloride Level 107 Carbon Dioxide 32 H Level Anion Gap 4 L Blood Urea 59 H Nitrogen Creatinine 0.81 Glucose Level 150 Calcium Level 7.9 L Phosphorus Level 4.6 Magnesium Level 2.3 Albumin 2.0 L Bedside Glucose 183 131 Medications Medication Current Medications IV Flush (NS 3 ml) 3 ml PER PROTOCOL IV ; Start 06/10/19 at 12:00 Ondansetron HCl (Zofran Inj) 4 mg Q6H PRN IV NAUSEA/VOMITING; Start 06/10/19 at 12:00 Acetaminophen (Tylenol Tab) 650 mg Q6H PRN PO .PAIN 1-3 OR TEMP Last administered on 06/13/19at 15:52; Admin Dose 650 MG; Start 06/10/19 at 12:00 Acetaminophen/ Hydrocodone Bitart ([place] (5/325)) 1 tab Q6H PRN PO .PAIN 4-6; Start 06/10/19 at 12:00 Morphine Sulfate (morphine) 2 mg Q4H PRN IV .PAIN 7-10 Last administered on 06/15/19at 16:57; Admin Dose 2 MG; Start 06/10/19 at 12:00 Vancomycin HCl (Vanco Iv Per Pharmacy) VANCOMYCIN PER PHARMACY PER PROTOCOL XX ; Start 06/10/19 at 12:30 Amiodarone HCl (Cordarone) 100 mg DAILY GTB Last administered on 06/19/19 09:39; Admin Dose 100 MG; Start 06/11/19 at 09:00 Atorvastatin Calcium (Lipitor) 20 mg QHS GTB Last administered on 06/19/19 20:21; Admin Dose 20 MG; Start 06/10/19 at 21:00 Levetiracetam (Keppra Liquid) 500 mg BID GTB Last administered on 06/19/19 20:21; Admin Dose 500 MG; Start 06/10/19 at 21:00 Olanzapine (Zyprexa) 5 mg DAILY GTB Last administered on 06/19/19 09:39; Admin Dose 5 MG; Start 06/11/19 at 09:00 Polyethylene Glycol (Miralax) 17 gm DAILY GTB Last administered on 06/15/19at 09:04; Admin Dose 17 GM; Start 06/11/19 at 09:00 Miscellaneous Information 1 ea NOTE XX ; Start 06/10/19 at 14:00 Glucose (Glutose) 15 gm Q15M PRN PO DECREASED GLUCOSE; Start 06/10/19 at 14:00 Glucose (Glutose) 22.5 gm Q15M PRN PO DECREASED GLUCOSE; Start 06/10/19 at 14:00 Dextrose (D50w Syringe) 25 ml Q15M PRN IV DECREASED GLUCOSE; Start 06/10/19 at 14:00 Dextrose (D50w Syringe) 50 ml Q15M PRN IV DECREASED GLUCOSE; Start 06/10/19 at 14:00 Glucagon (Glucagen) 1 mg Q15M PRN IM DECREASED GLUCOSE; Start 06/10/19 at 14:00 Glucose (Glutose) 15 gm Q15M PRN BUCCAL DECREASED GLUCOSE; Start 06/10/19 at 14:00 Budesonide (Pulmicort (Neb)) 0.5 mg BID RESP THERAPY HHN Last administered on 06/19/19at 19:48; Admin Dose 0.5 MG; Start 06/10/19 at 20:00 IV Flush (NS 10 ml) 10 ml [id number] PRN IV Line Patency; Start 06/10/19 at 16:00 Fluvoxamine Maleate (Fluvoxamine Maleate) 25 mg DAILY GTB Last administered on 06/19/19 09:39; Admin Dose 25 MG; Start 06/11/19 at 09:00 Aspirin (Aspirin) 81 mg DAILY PEG Last administered on 06/19/19at 09:39; Admin Dose 81 MG; Start 06/11/19 at 09:00 Heparin Sodium (Porcine) (Heparin (5000 Units/1ml)) 5,000 unit Q8 SC Last administered on 06/14/19at 06:01; Admin Dose 5,000 UNIT; Start 06/11/19 at 14:00; Status Hold Ipratropium [place] (Atrovent 0.02% (Neb)) 0.5 mg Q4H RESP THERAPY PRN HHN SHORTNESS OF BREATH; Start 06/12/19 at 10:00 Levalbuterol (Xopenex Neb) 1.25 mg Q4H RESP THERAPY PRN HHN shortness of breath; Start 06/12/19 at 10:00 Fentanyl 100 ml @ 2.5 mls/hr TITRATE IV Last administered on 06/20/19at 06:58; Admin Dose 5 MLS/HR; Start 06/12/19 at 10:00 Phenylephrine HCl 80 mg/Dextrose 250 ml @ 18.75 mls/ hr TITRATE IV Last administered on 06/16/19 08:39; Admin Dose 15.1 MLS/HR; Start 06/12/19 at 14:00 Levalbuterol (Xopenex Hfa) 4 puff Q6H RESP THERAPY INH Last administered on 06/20/19 08:16; Admin Dose 4 PUFF; Start 06/12/19 at 20:00 Ipratropium [place] (Atrovent Hfa) 4 puff Q6H RESP THERAPY INH Last administered on 06/20/19 08:16; Admin Dose 4 PUFF; Start 06/12/19 at 20:00 Norepinephrine 32 mg/Dextrose 250 ml @ 0.47 mls/hr TITRATE IV Last administer ed on 06/18/19 23:09; Admin Dose 0.94 MLS/HR; Start 06/13/19 at 08:00 Meropenem/Sodium Chloride 50 ml @ 100 mls/hr Q12 IVPB Last administered on 06/19/19 20:19; Admin Dose 100 MLS/HR; Start 06/13/19 at 14:00 Docusate Sodium (Colace Liquid Cup) 100 mg BID GTB Last administered on 06/18/19 20:21; Admin Dose 100 MG; Start 06/14/19 at 12:30 Potassium Chloride 50 ml @ 50 mls/hr K PROTOCOL PRN IVPB PENDING LAB VALUE Last administered on 06/20/19 01:34; Admin Dose 50 MLS/HR; Start 06/15/19 at 09:00 Insulin Aspart (Novolog Insulin Pen) NOVOLOG *MILD* ALGORI... Q4 SC Last administered on 06/20/19 05:06; Admin Dose 2 UNIT; Start 06/16/19 at 21:00 Insulin Glargine (Lantus) 15 units DAILY@0800 SC Last administered on 06/19/19 09:47; Admin Dose 15 UNITS; Start 06/18/19 at 08:00 Caspofungin 50 mg/ Sodium Chloride 250 ml @ 250 mls/hr Q24H IVPB Last administered on 06/19/19 14:51; Admin Dose 250 MLS/HR; Start 06/18/19 at 13:00 Midazolam HCl 50 ml @ 1 mls/hr TITRATE IV Last administered on 06/18/19 09:43; Admin Dose 2 MLS/HR; Start 06/17/19 at 15:30 Hydrocortisone (Solu-Cortef) 50 mg Q8 IV Last administered on 06/20/19 05:24; Admin Dose 50 MG; Start 06/18/19 at 14:00 Propofol 100 ml @ 1.656 mls/ hr Q12H IV Last administered on 06/20/19 06:55; Admin Dose 3.312 MLS/HR; Start 06/18/19 at 10:00 Lactobacillus Acidophilus/ Rhamnosus (Culturelle) 1 cap TID PO Last administered on 06/19/19 20:20; Admin Dose 1 CAP; Start 06/18/19 at 21:00 Vancomycin/Sodium Chloride 250 ml @ 125 mls/hr Q36H IVPB Last administered on 06/19/19 20:45; Admin Dose 125 MLS/HR; Start 06/19/19 at 21:00 Furosemide (Lasix) 40 mg BID DIURETICS IV Last administered on 06/20/19 05:24; Admin Dose 40 MG; Start 06/19/19 at 18:00 GERMAN FELIX MD Jun 20, 2019 08:39
--- NOTE | 2019-06-20 08:50 | CONS ---
Assessment/Plan Assessment/Plan Assessment/Plan (Daily) Chest x-ray was reviewed from today which is showing diffuse bilateral irregular infiltrates. Ventilator setting; assist control of 20, tidal volume 500, PEEP of 10, 80% FiO2. Patient is currently on propofol 10 mics per kilogram per minute, Levophed 1 navneet per minute. Assessment and recommendations; 1. Patient admitted with severe bilateral pneumonia with ARDS without any interval improvement. 2. Possibly low-grade DIC. 3. History of advanced dementia. 4. History of paroxysmal atrial fibrillation, currently in sinus rhythm. 5. History of hypertension. 6. History of seizure disorder. Continue current supportive care. Prognosis is extremely poor. Palliative care should be considered. Consultation Date/Type/Reason Admit Date/Time Jun 10, 2019 at 12:38 Initial Consult Date 06/11/19 Type of Consult Pulmonary/critical care Patient is an 84-year-old [place] lady who was [facility]emia. Upon evaluation patient is been diagnosed with sepsis due to pneumonia. Patient has advanced dementia and is unable to give any history by herself whatsoever. Patient however is appearing tachypneic. Past medical history; 1. History of chronic atrial fibrillation. 2. Advanced dementia. 3. History of G-tube placement. 4. History of diabetes. 5. History of hypertension. Medications; reviewed. Allergies; none. Social history, family history, occupational history is are not available. Review of systems; unable to be obtained. General exam; elderly woman, on BiPAP. Noncommunicative. Tachypneic. Requesting Provider: MALINI GOMEZ Date/Time of Note DATE: 06/20/19 TIME: 08:47 24 HR Interval Summary Free Text/Dictation Patient's condition is critical. Still on fairly high FiO2. General exam; elderly woman, orally intubated, sedated, currently in no distress. Exam/Review of Systems Exam Vitals Vital Signs Date Temp Pulse Resp B/P (MAP) Pulse Ox O2 O2 Flow FiO2 Time Delivery Rate 06/20/19 89 22 104/65 97 06:45 (78) 06/20/19 Mechanical 06:00 Ventilator 06/20/19 80 05:24 06/20/19 96.8 04:00 Intake and Output 06/19/19 06/19/19 06/20/19 1515:00 23:00 07:00 IntakeIntake Total 556 ml 900.05 ml 782.28 ml OutputOutput Total 320 ml 575 ml 445 ml BalanceBalance 236 ml 325.05 ml 337.28 ml Exam H EENT exam; supple neck, no JVD. No lymphadenopathy. Midline trachea. No thyromegaly. Patient has fair dentition. Orally intubated. Pupils are small bilaterally. No neck masses. Chest exam; diminished breath sounds throughout. With bilateral crackles. S1- S2 audible, no murmurs. Regular rhythm. Abdomen exam; soft, protuberant. G-tube in place. Bowel sounds are audible. Extremity exam; 2+ anasarca. [employer] exam; patient is awake but mildly sedated. Results Result Diagram: 06/20/19 0448 06/20/19 0456 Results 24hrs Laboratory Tests Test 06/19/19 09:44 06/19/19 10:58 06/19/19 14:59 06/19/19 18:45 Bedside Glucose 142 123 114 Vancomycin Level 19.6 Trough Test 06/19/19 20:44 06/19/19 23:00 06/20/19 01:33 06/20/19 04:48 Bedside Glucose 113 165 Blood Gas Blood arterial Specimen Source Arterial Blood 06/19/2019 11:37: Date Drawn 52 PM Arterial Blood pH 7.498 H (Temp corrected) Arterial Blood 38.8 pCO2 (Temp correct) Arterial Blood 66.3 L pO2 (Temp corrected) Arterial Blood 29.4 H HCO3 Arterial Blood 5.8 H Base Excess Arterial Blood 92.6 L Oxygen Saturation James Test ACCEPTAB Arterial Blood Right Radial Gas Puncture Site Arterial 0.3 Blood Carboxyhemo globin Arterial Blood 0.3 Methemoglobin Blood Gas A-a O2 318.8 H Differential Oxyhemoglobin 92.0 L Percent Blood Gas 37.0 Temperature Blood Gas 20.0 Respiration Rate Blood Gas Actual 20 Respiration Rate Blood Gas VENT - AC Modality FiO2 60.0 Blood Gas Tidal 500.0 Volume Blood Gas Mean 19 Airway Pressure Blood Gas Low 10.0 PEEP Setting Blood Gas 44.0 Inspiratory Pressure Blood Gas JENNIE CAMACHO Notified Whom Blood Gas 06/19/2019 11:49: Notified Time 18 PM White Blood Count 26.2 H Red Blood Count 2.67 L Hemoglobin 8.2 L Hematocrit 25.2 L Mean Corpuscular 94.4 Volume Mean Corpuscular 30.7 Hemoglobin Mean Corpuscular 32.5 Hemoglobin Concen t Red Cell 14.6 H Distribution Width Platelet Count 73 L Mean Platelet 12.0 H Volume Immature 1.100 H Granulocytes % Neutrophils % Lymphocytes % Monocytes % Eosinophils % Basophils % Nucleated Red 0.0 Blood Cells % Immature 0.280 H Granulocytes # Neutrophils # Lymphocytes # Monocytes # Eosinophils # Basophils # Nucleated Red Blood Cells # Test 06/20/19 04:56 06/20/19 05:02 06/20/19 08:34 Sodium Level 143 Potassium Level 5.6 #H Chloride Level 107 Carbon Dioxide 32 H Level Anion Gap 4 L Blood Urea 59 H Nitrogen Creatinine 0.81 Glucose Level 150 Calcium Level 7.9 L Phosphorus Level 4.6 Magnesium Level 2.3 Albumin 2.0 L Bedside Glucose 183 131 Medications Medication Current Medications IV Flush (NS 3 ml) 3 ml PER PROTOCOL IV ; Start 06/10/19 at 12:00 Ondansetron HCl (Zofran Inj) 4 mg Q6H PRN IV NAUSEA/VOMITING; Start 06/10/19 at 12:00 Acetaminophen (Tylenol Tab) 650 mg Q6H PRN PO .PAIN 1-3 OR TEMP Last administered on 06/13/19at 15:52; Admin Dose 650 MG; Start 06/10/19 at 12:00 Acetaminophen/ Hydrocodone Bitart ([place] (5/325)) 1 tab Q6H PRN PO .PAIN 4-6; Start 06/10/19 at 12:00 Morphine Sulfate (morphine) 2 mg Q4H PRN IV .PAIN 7-10 Last administered on 06/15/19at 16:57; Admin Dose 2 MG; Start 06/10/19 at 12:00 Vancomycin HCl (Vanco Iv Per Pharmacy) VANCOMYCIN PER PHARMACY PER PROTOCOL XX ; Start 06/10/19 at 12:30 Amiodarone HCl (Cordarone) 100 mg DAILY GTB Last administered on 06/19/19at 09:39; Admin Dose 100 MG; Start 06/11/19 at 09:00 Atorvastatin Calcium (Lipitor) 20 mg QHS GTB Last administered on 06/19/19at 2 0:21; Admin Dose 20 MG; Start 06/10/19 at 21:00 Levetiracetam (Keppra Liquid) 500 mg BID GTB Last administered on 06/19/19 20:21; Admin Dose 500 MG; Start 06/10/19 at 21:00 Olanzapine (Zyprexa) 5 mg DAILY GTB Last administered on 06/19/19 09:39; Admin Dose 5 MG; Start 06/11/19 at 09:00 Polyethylene Glycol (Miralax) 17 gm DAILY GTB Last administered on 06/15/19 09:04; Admin Dose 17 GM; Start 06/11/19 at 09:00 Miscellaneous Information 1 ea NOTE XX ; Start 06/10/19 at 14:00 Glucose (Glutose) 15 gm Q15M PRN PO DECREASED GLUCOSE; Start 06/10/19 at 14:00 Glucose (Glutose) 22.5 gm Q15M PRN PO DECREASED GLUCOSE; Start 06/10/19 at 14:00 Dextrose (D50w Syringe) 25 ml Q15M PRN IV DECREASED GLUCOSE; Start 06/10/19 at 14:00 Dextrose (D50w Syringe) 50 ml Q15M PRN IV DECREASED GLUCOSE; Start 06/10/19 at 14:00 Glucagon (Glucagen) 1 mg Q15M PRN IM DECREASED GLUCOSE; Start 06/10/19 at 14:00 Glucose (Glutose) 15 gm Q15M PRN BUCCAL DECREASED GLUCOSE; Start 06/10/19 at 14:00 IV Flush (NS 10 ml) 10 ml [id number] PRN IV Line Patency; Start 06/10/19 at 16:00 Fluvoxamine Maleate (Fluvoxamine Maleate) 25 mg DAILY GTB Last administered on 06/19/19 09:39; Admin Dose 25 MG; Start 06/11/19 at 09:00 Aspirin (Aspirin) 81 mg DAILY PEG Last administered on 06/19/19 09:39; Admin Dose 81 MG; Start 06/11/19 at 09:00 Heparin Sodium (Porcine) (Heparin (5000 Units/1ml)) 5,000 unit Q8 SC Last administered on 06/14/19at 06:01; Admin Dose 5,000 UNIT; Start 06/11/19 at 14:00; Status Hold Ipratropium [place] (Atrovent 0.02% (Neb)) 0.5 mg Q4H RESP THERAPY PRN HHN SHORTNESS OF BREATH; Start 06/12/19 at 10:00 Levalbuterol (Xopenex Neb) 1.25 mg Q4H RESP THERAPY PRN HHN shortness of breath; Start 06/12/19 at 10:00 Fentanyl 100 ml @ 2.5 mls/hr TITRATE IV Last administered on 06/20/19 06:58; Admin Dose 5 MLS/HR; Start 06/12/19 at 10:00 Phenylephrine HCl 80 mg/Dextrose 250 ml @ 18.75 mls/ hr TITRATE IV Last administered on 06/16/19 08:39; Admin Dose 15.1 MLS/HR; Start 06/12/19 at 14:00 Levalbuterol (Xopenex Hfa) 4 puff Q6H RESP THERAPY INH Last administered on 06/20/19 08:16; Admin Dose 4 PUFF; Start 06/12/19 at 20:00 Ipratropium [place] (Atrovent Hfa) 4 puff Q6H RESP THERAPY INH Last administered on 06/20/19 08:16; Admin Dose 4 PUFF; Start 06/12/19 at 20:00 Norepinephrine 32 mg/Dextrose 250 ml @ 0.47 mls/hr TITRATE IV Last administered on 06/18/19 23:09; Admin Dose 0.94 MLS/HR; Start 06/13/19 at 08:00 Meropenem/Sodium Chloride 50 ml @ 100 mls/hr Q12 IVPB Last administered on 06/19/19 20:19; Admin Dose 100 MLS/HR; Start 06/13/19 at 14:00 Docusate Sodium (Colace Liquid Cup) 100 mg BID GTB Last administered on 06/18/19 20:21; Admin Dose 100 MG; Start 06/14/19 at 12:30 Potassium Chloride 50 ml @ 50 mls/hr K PROTOCOL PRN IVPB PENDING LAB VALUE Last administered on 06/20/19 01:34; Admin Dose 50 MLS/HR; Start 06/15/19 at 09:00 Insulin Aspart (Novolog Insulin Pen) NOVOLOG *MILD* ALGORI... Q4 SC Last administered on 06/20/19 05:06; Admin Dose 2 UNIT; Start 06/16/19 at 21:00 Insulin Glargine (Lantus) 15 units DAILY@0800 SC Last administered on 06/19/19 09:47; Admin Dose 15 UNITS; Start 06/18/19 at 08:00 Caspofungin 50 mg/ Sodium Chloride 250 ml @ 250 mls/hr Q24H IVPB Last administered on 06/19/19 14:51; Admin Dose 250 MLS/HR; Start 06/18/19 at 13:00 Midazolam HCl 50 ml @ 1 mls/hr TITRATE IV Last administered on 06/18/19 09:43; Admin Dose 2 MLS/HR; Start 06/17/19 at 15:30 Hydrocortisone (Solu-Cortef) 50 mg Q8 IV Last administered on 06/20/19 05:24; Admin Dose 50 MG; Start 06/18/19 at 14:00 Propofol 100 ml @ 1.656 mls/ hr Q12H IV Last administered on 06/20/19 06:55; Admin Dose 3.312 MLS/HR; Start 06/18/19 at 10:00 Lactobacillus Acidophilus/ Rhamnosus (Culturelle) 1 cap TID PO Last administered on 06/19/19 20:20; Admin Dose 1 CAP; Start 06/18/19 at 21:00 Vancomycin/Sodium Chloride 250 ml @ 125 mls/hr Q36H IVPB Last administered on 06/19/19 20:45; Admin Dose 125 MLS/HR; Start 06/19/19 at 21:00 Furosemide (Lasix) 40 mg BID DIURETICS IV Last administered on 06/20/19 05:24; Admin Dose 40 MG; Start 06/19/19 at 18:00 CHARAN LAUREANO Jun 20, 2019 08:50
[2019-06-20] MEDS: POLYETHYLENE GLYCOL 17 GM PACKET GTB SCH (09:00)
[2019-06-20] MEDS: DOCUSATE SODIUM 10 MG/ML (10ML CUP) GTB SCH ×2 (09:00→21:00)
[2019-06-20] MEDS: FLUVOXAMINE MALEATE 25 MG TABLET GTB SCH (09:50)
[2019-06-20] MEDS: LEVETIRACETAM (100 MG/ML) 5ML CUP GTB SCH ×2 (09:50→20:00)
[2019-06-20] MEDS: OLANZAPINE 5 MG TAB GTB SCH (09:51)
[2019-06-20] MEDS: AMIODARONE 200 MG TAB GTB SCH (09:51)
[2019-06-20] MEDS: MEROPENEM 1 GM/50ML(PMX) 50 ML IVPB SCH ×2 (09:52→20:02)
[2019-06-20] MEDS: ASPIRIN 81 MG TAB PEG SCH (09:52)
[2019-06-20] MEDS: LACTOBACILLUS RHAMNOSUS CAP PO SCH ×3 (09:52→20:01)
[2019-06-20] MEDS: BALSAM PERU/CASTOR OIL 60 GM TUBE TOP SCH (09:53)
[2019-06-20] MEDS: INSULIN GLARGINE [LANTus] (100 UNITS/ML) SYG SC SCH ×2 (10:22→16:29)
[2019-06-20] MEDS: CASPOFUNGIN 50 MG in SOD CHLORIDE 0.9% 250 ML IVPB SCH (13:21)
--- NOTE | 2019-06-20 16:05 | PN ---
Date/Time of Note Date/Time of Note DATE: 06/20/19 TIME: 15:57 Assessment/Plan VTE Prophylaxis Risk score (from Nsg)>0 risk: 5 SCD applied (from Nsg): Yes Pharmacological prophylaxis: heparin Lines/Catheters IV Catheter Type (from Nrsg): Central Line Central line still needed: Yes Urinary Cath still in place: Yes Reason Cath still needed: terminal illness/intractable pain Assessment/Plan Assessment/Plan 1. Acute hypoxic respiratory failure, ARDS secondary to sepsis - weaned to 70% this am and will continue as tolerated. Discussed with son will need to discuss plan of care given patient most likely wont be able to be weaned off the vent - Pulm on board and appreciate recommendations - wean vent settings as able - Continue IV antibiotics 2. Multifocal pneumonia - ID on board and appreciate recommendations - seen on CXR - Continue current antibiotics 3. Septic shock versus severe sepsis - continue on pressor support with MAP >65. Will wean as tolerated. Remains on 1 pressors 4. Atrial fibrillation with RVR - back in sinus rhythm - Cardiology consultation appreciated 5. Non-ST elevated NC - Cardiology consultation appreciated and will continue current medications - Very mild elevation - continue aspirin and statin 6. Hypocalcemia- resolved 7. Thrombocytopenia-stable - Very likely due to septic shock - Fibrinogen is elevated, unlikely DIC 8. Chronic dysphasia - Patient has PEG tube 9. Diabetes mellitus - continue on Lantus and ISS - sugars well controlled 10. Chronic encephalopathy - CT of the brain initially showed alarming findings however there appears to be a mixup with patient's name, patient's actual name is Trey Roberts, [id number]. Neurosurgeon was initially consulted for possible brain bleed and other findings however when comparing to the patient's actual chart in 2013, neurosurgeon reviewed the CT and MRI and found a similar findings with no acute emergent change. - Monitor closely, patient appears to be at baseline 11. Dyslipidemia - Continue home meds 12. Mood disorder - Continue home meds 13. Chronic kidney disease - resolved - nephrology consultation appreciated 14. Failure to thrive - now DNR per families request 15. Anasarca - on Lasix BID and will monitor diuresis 16. Disposition - Continue monitoring in ICU while on vent support. >35 minutes of critical care spent with patient at bedside. SonGhassan, updated over the phone and discussed need to address plan of care Result Diagram: 06/20/19 0448 06/20/19 0456 Results 24hrs Laboratory Tests Test 06/19/19 18:45 06/19/19 20:44 06/19/19 23:00 06/20/19 01:33 Bedside Glucose 114 113 165 Blood Gas Blood arterial Specimen Source Arterial Blood 06/19/2019 11:37: Date Drawn 52 PM Arterial Blood pH 7.498 H (Temp corrected) Arterial Blood 38.8 pCO2 (Temp correct) Arterial Blood 66.3 L pO2 (Temp corrected) Arterial Blood 29.4 H HCO3 Arterial Blood 5.8 H Base Excess Arterial Blood 92.6 L Oxygen Saturation James Test ACCEPTAB Arterial Blood Right Radial Gas Puncture Site Arterial 0.3 Blood Carboxyhemo globin Arterial Blood 0.3 Methemoglobin Blood Gas A-a O2 318.8 H Differential Oxyhemoglobin 92.0 L Percent Blood Gas 37.0 Temperature Blood Gas 20.0 Respiration Rate Blood Gas Actual 20 Respiration Rate Blood Gas VENT - AC Modality FiO2 60.0 Blood Gas Tidal 500.0 Volume Blood Gas Mean 19 Airway Pressure Blood Gas Low 10.0 PEEP Setting Blood Gas 44.0 Inspiratory Pressure Blood Gas JENNIE CAMACHO Notified Whom Blood Gas 06/19/2019 11:49: Notified Time 18 PM Test 06/20/19 04:48 06/20/19 04:56 06/20/19 05:02 06/20/19 08:34 White Blood Count 26.2 H Red Blood Count 2.67 L Hemoglobin 8.2 L Hematocrit 25.2 L Mean Corpuscular 94.4 Volume Mean Corpuscular 30.7 Hemoglobin Mean Corpuscular 32.5 Hemoglobin Concen t Red Cell 14.6 H Distribution Width Platelet Count 73 L Mean Platelet 12.0 H Volume Immature 1.100 H Granulocytes % Neutrophils % Segmented 93 H Neutrophils % (Manual) Band Neutrophils 6 H % (Manual) Lymphocytes % Lymphocytes % 1 L (Manual) Monocytes % Eosinophils % Basophils % Nucleated Red 0.0 Blood Cells % Immature 0.280 H Granulocytes # Neutrophils # Neutrophils # 24.8 H (Manual) Band Neutrophils 1.5 H # Lymphocytes 0.2 L (Manual) Lymphocytes # Monocytes # Eosinophils # Basophils # Nucleated Red Blood Cells # Platelet Estimate DECREASED Giant Platelets 1 H Hypochromasia 1+ Poikilocytosis 1+ Spherocytes 1+ Sodium Level 143 Potassium Level 5.6 #H Chloride Level 107 Carbon Dioxide 32 H Level Anion Gap 4 L Blood Urea 59 H Nitrogen Creatinine 0.81 Glucose Level 150 Calcium Level 7.9 L Phosphorus Level 4.6 Magnesium Level 2.3 Albumin 2.0 L Bedside Glucose 183 131 Test 06/20/19 12:57 Bedside Glucose 153 Subjective 24 Hr Interval Summary Free Text/Dictation Patient remains on vent support and pressure support as well. Exam/Review of Systems Exam Vitals Vital Signs Date Temp Pulse Resp B/P (MAP) Pulse Ox O2 O2 Flow FiO2 Time Delivery Rate 06/20/19 74 18 98/60 (73) 100 Mechanical 15:00 Ventilator 06/20/19 98.1 12:00 06/20/19 80 05:24 Intake and Output 06/19/19 06/19/19 06/20/19 1515:00 23:00 07:00 IntakeIntake Total 556 ml 900.05 ml 791.05 ml OutputOutput Total 320 ml 575 ml 445 ml BalanceBalance 236 ml 325.05 ml 346.05 ml Exam General: Patient is intubated and sedated. no acute distress Head: Normocephalic atraumatic Respiratory: Coarse to auscultation bilaterally. no wheezing Cardiovascular: Regular rate and rhythm, no obvious murmurs Gastrointestinal: non-tender to palpation, bowel sounds heard. PEG in place Ext: diffuse anasarca. no cyanosis or clubbing skin: no rashes appreciated Results Results 24hrs Laboratory Tests Test 06/19/19 18:45 06/19/19 20:44 06/19/19 23:00 06/20/19 01:33 Bedside Glucose 114 113 165 Blood Gas Blood arterial Specimen Source Arterial Blood 06/19/2019 11:37: Date Drawn 52 PM Arterial Blood pH 7.498 H (Temp corrected) Arterial Blood 38.8 pCO2 (Temp correct) Arterial Blood 66.3 L pO2 (Temp corrected) Arterial Blood 29.4 H HCO3 Arterial Blood 5.8 H Base Excess Arterial Blood 92.6 L Oxygen Saturation James Test ACCEPTAB Arterial Blood Right Radial Gas Puncture Site Arterial 0.3 Blood Carboxyhemo globin Arterial Blood 0.3 Methemoglobin Blood Gas A-a O2 318.8 H Differential Oxyhemoglobin 92.0 L Percent Blood Gas 37.0 Temperature Blood Gas 20.0 Respiration Rate Blood Gas Actual 20 Respiration Rate Blood Gas VENT - AC Modality FiO2 60.0 Blood Gas Tidal 500.0 Volume Blood Gas Mean 19 Airway Pressure Blood Gas Low 10.0 PEEP Setting Blood Gas 44.0 Inspiratory Pressure Blood Gas JNENIE CAMACHO Notified Whom Blood Gas 06/19/2019 11:49: Notified Time 18 PM Test 06/20/19 04:48 06/20/19 04:56 06/20/19 05:02 06/20/19 08:34 White Blood Count 26.2 H Red Blood Count 2.67 L Hemoglobin 8.2 L Hematocrit 25.2 L Mean Corpuscular 94.4 Volume Mean Corpuscular 30.7 Hemoglobin Mean Corpuscular 32.5 Hemoglobin Concen t Red Cell 14.6 H Distribution Width Platelet Count 73 L Mean Platelet 12.0 H Volume Immature 1.100 H Granulocytes % Neutrophils % Segmented 93 H Neutrophils % (Manual) Band Neutrophils 6 H % (Manual) Lymphocytes % Lymphocytes % 1 L (Manual) Monocytes % Eosinophils % Basophils % Nucleated Red 0.0 Blood Cells % Immature 0.280 H Granulocytes # Neutrophils # Neutrophils # 24.8 H (Manual) Band Neutrophils 1.5 H # Lymphocytes 0.2 L (Manual) Lymphocytes # Monocytes # Eosinophils # Basophils # Nucleated Red Blood Cells # Platelet Estimate DECREASED Giant Platelets 1 H Hypochromasia 1+ Poikilocytosis 1+ Spherocytes 1+ Sodium Level 143 Potassium Level 5.6 #H Chloride Level 107 Carbon Dioxide 32 H Level Anion Gap 4 L Blood Urea 59 H Nitrogen Creatinine 0.81 Glucose Level 150 Calcium Level 7.9 L Phosphorus Level 4.6 Magnesium Level 2.3 Albumin 2.0 L Bedside Glucose 183 131 Test 06/20/19 12:57 Bedside Glucose 153 Medications Medication Current Medications IV Flush (NS 3 ml) 3 ml PER PROTOCOL IV ; Start 06/10/19 at 12:00 Ondansetron HCl (Zofran Inj) 4 mg Q6H PRN IV NAUSEA/VOMITING; Start 06/10/19 at 12:00 Acetaminophen (Tylenol Tab) 650 mg Q6H PRN PO .PAIN 1-3 OR TEMP Last administered on 06/13/19at 15:52; Admin Dose 650 MG; Start 06/10/19 at 12:00 Acetaminophen/ Hydrocodone Bitart ([place] (5/325)) 1 tab Q6H PRN PO .PAIN 4-6; Start 06/10/19 at 12:00 Morphine Sulfate (morphine) 2 mg Q4H PRN IV .PAIN 7-10 Last administered on 06/15/19at 16:57; Admin Dose 2 MG; Start 06/10/19 at 12:00 Vancomycin HCl (Vanco Iv Per Pharmacy) VANCOMYCIN PER PHARMACY PER PROTOCOL XX ; Start 06/10/19 at 12:30 Amiodarone HCl (Cordarone) 100 mg DAILY GTB Last administered on 06/20/19at 09:51; Admin Dose 100 MG; Start 06/11/19 at 09:00 Atorvastatin Calcium (Lipitor) 20 mg QHS GTB Last administered on 06/19/19at 20:21; Admin Dose 20 MG; Start 06/10/19 at 21:00 Levetiracetam (Keppra Liquid) 500 mg BID GTB Last administered on 06/20/19at 09:50; Admin Dose 500 MG; Start 06/10/19 at 21:00 Olanzapine (Zyprexa) 5 mg DAILY GTB Last administered on 06/20/19at 09:51; Admin Dose 5 MG; Start 06/11/19 at 09:00 Polyethylene Glycol (Miralax) 17 gm DAILY GTB Last administered on 06/15/19at 09:04; Admin Dose 17 GM; Start 06/11/19 at 09:00 Miscellaneous Information 1 ea NOTE XX ; Start 06/10/19 at 14:00 Glucose (Glutose) 15 gm Q15M PRN PO DECREASED GLUCOSE; Start 06/10/19 at 14:00 Glucose (Glutose) 22.5 gm Q15M PRN PO DECREASED GLUCOSE; Start 06/10/19 at 14:00 Dextrose (D50w Syringe) 25 ml Q15M PRN IV DECREASED GLUCOSE; Start 06/10/19 at 14:00 Dextrose (D50w Syringe) 50 ml Q15M PRN IV DECREASED GLUCOSE; Start 06/10/19 at 14:00 Glucagon (Glucagen) 1 mg Q15M PRN IM DECREASED GLUCOSE; Start 06/10/19 at 14:00 Glucose (Glutose) 15 gm Q15M PRN BUCCAL DECREASED GLUCOSE; Start 06/10/19 at 14:00 IV Flush (NS 10 ml) 10 ml [id number] PRN IV Line Patency; Start 06/10/19 at 16:00 Fluvoxamine Maleate (Fluvoxamine Maleate) 25 mg DAILY GTB Last administered on 06/20/19 09:50; Admin Dose 25 MG; Start 06/11/19 at 09:00 Aspirin (Aspirin) 81 mg DAILY PEG Last administered on 06/20/19 09:52; Admin Dose 81 MG; Start 06/11/19 at 09:00 Heparin Sodium (Porcine) (Heparin (5000 Units/1ml)) 5,000 unit Q8 SC Last administered on 06/14/19 06:01; Admin Dose 5,000 UNIT; Start 06/11/19 at 14:00; Status Hold Ipratropium [place] (Atrovent 0.02% (Neb)) 0.5 mg Q4H RESP THERAPY PRN HHN SHORTNESS OF BREATH; Start 06/12/19 at 10:00 Levalbuterol (Xopenex Neb) 1.25 mg Q4H RESP THERAPY PRN HHN shortness of breath; Start 06/12/19 at 10:00 Fentanyl 100 ml @ 2.5 mls/hr TITRATE IV Last administered on 06/20/19 06:58; Admin Dose 5 MLS/HR; Start 06/12/19 at 10:00 Phenylephrine HCl 80 mg/Dextrose 250 ml @ 18.75 mls/ hr TITRATE IV Last administered on 06/16/19 08:39; Admin Dose 15.1 MLS/HR; Start 06/12/19 at 14:00 Levalbuterol (Xopenex Hfa) 4 puff Q6H RESP THERAPY INH Last administered on 06/20/19 13:48; Admin Dose 4 PUFF; Start 06/12/19 at 20:00 Ipratropium [place] (Atrovent Hfa) 4 puff Q6H RESP THERAPY INH Last administered on 06/20/19 13:48; Admin Dose 4 PUFF; Start 06/12/19 at 20:00 Norepinephrine 32 mg/Dextrose 250 ml @ 0.47 mls/hr TITRATE IV Last admi nistered on 06/18/19 23:09; Admin Dose 0.94 MLS/HR; Start 06/13/19 at 08:00 Meropenem/Sodium Chloride 50 ml @ 100 mls/hr Q12 IVPB Last administered on 06/20/19 09:52; Admin Dose 100 MLS/HR; Start 06/13/19 at 14:00 Docusate Sodium (Colace Liquid Cup) 100 mg BID GTB Last administered on 06/18/19 20:21; Admin Dose 100 MG; Start 06/14/19 at 12:30 Potassium Chloride 50 ml @ 50 mls/hr K PROTOCOL PRN IVPB PENDING LAB VALUE Last administered on 06/20/19 01:34; Admin Dose 50 MLS/HR; Start 06/15/19 at 09:00 Insulin Aspart (Novolog Insulin Pen) NOVOLOG *MILD* ALGORI... Q4 SC Last administered on 06/20/19 13:01; Admin Dose 1 UNIT; Start 06/16/19 at 21:00 Insulin Glargine (Lantus) 15 units DAILY@0800 SC Last administered on 06/20/19 10:22; Admin Dose 15 UNITS; Start 06/18/19 at 08:00 Caspofungin 50 mg/ Sodium Chloride 250 ml @ 250 mls/hr Q24H IVPB Last administered on 06/20/19 13:21; Admin Dose 250 MLS/HR; Start 06/18/19 at 13:00 Midazolam HCl 50 ml @ 1 mls/hr TITRATE IV Last administered on 06/18/19 09:43; Admin Dose 2 MLS/HR; Start 06/17/19 at 15:30 Hydrocortisone (Solu-Cortef) 50 mg Q8 IV Last administered on 06/20/19 13:50; Admin Dose 50 MG; Start 06/18/19 at 14:00 Propofol 100 ml @ 1.656 mls/ hr Q12H IV Last administered on 06/20/19 06:55; Admin Dose 3.312 MLS/HR; Start 06/18/19 at 10:00 Lactobacillus Acidophilus/ Rhamnosus (Culturelle) 1 cap TID PO Last administe red on 06/20/19 13:49; Admin Dose 1 CAP; Start 06/18/19 at 21:00 Vancomycin/Sodium Chloride 250 ml @ 125 mls/hr Q36H IVPB Last administered on 06/19/19 20:45; Admin Dose 125 MLS/HR; Start 06/19/19 at 21:00 Furosemide (Lasix) 40 mg BID DIURETICS IV Last administered on 06/20/19at 05:24; Admin Dose 40 MG; Start 06/19/19 at 18:00 SHENG DONNELLY MD Jun 20, 2019 16:05
[2019-06-20] MEDS ORDERED: NA POLYST SULFON 15 GM/60 ML BTL PO ONE (16:30)
--- NOTE | 2019-06-20 19:08 | PN ---
DATE: 06/20/2019 SUBJECTIVE: Patient remains on low dose Levophed drip. Tolerates tube feeding, intubated and sedate d, in no distress. No fevers overnight. WBC 26.2, platelets 73, neutrophils 93, bands 6, BUN 59, creatinine 0.81. DIAGNOSTICS: Chest x-ray this morning revealed a similar appearance. INDWELLINGS: The endotracheal tube, PEG, Dial, PICC line. ANTIMICROBIALS: The patient is on: 1. Cancidas. 2. Meropenem. 3. Vancomycin. MICROBIOLOGY: Urine culture on admission grew Klebsiella ESBL. Blood culture growing Bridget albica ns and MRSA. PHYSICAL EXAMINATION: GENERAL: This is a chronically ill-appearing, elderly woman who is intubated, sedated, in no d istress. HEENT: Head atraumatic, normocephalic. NECK: Supple. Tracheostomy present. Trachea midline. CHEST: Rise symmetrical. Breath sounds diminished to bases. HEART: S1, S2. ABDOMEN: Distended. Bowel sounds hypoactive. EXTREMITIES: Bilateral edema. ASSESSMENT: 1. Septic shock. 2. Ongoing leukocytosis, patient is on Solu-Cortef. 3. Klebsiella extended-spectrum beta-lactamase urinary tract infection. 4. Pneumonia. 5. Acute respiratory failure. 6. Atrial fibrillation and non-ST elevation myocardial infarction. . 7. Diabetes. PLAN: The patient remains unchanged, overall doing poorly. She is on appropriate antibiotic regimen . Continue weaning trials per pulmonary. Dictated By: JACKIE CORTÉS LEAD PRINCIPAL TECHNICAL ARCHITECT for LARISSA FARAH MD NI/NTS Conf#: [id number] DID#: [id number] CC: MALINI GOMEZ MD;*EndCC*
[2019-06-20] MEDS: ATORVASTATIN 20 MG TAB GTB SCH (20:00)
[2019-06-21] VITALS (49 sets, daily range): BP systolic 57–126; BP diastolic 46–75; PULSE 60–112; RESP 5–32
[2019-06-21] MEDS: INSULIN ASPART [NOVOLOG] 3 ML PEN SC SCH ×6 (01:00→20:08)
[2019-06-21] MEDS: FENTAnyl (DRIP) 1000 mcg/100mL 100 ML IV SCH ×2 (01:55→17:07)
[2019-06-21] MEDS: IPRATROPIUM (HFA) 12.9 GM INHALER INH SCH ×4 (02:07→19:48)
[2019-06-21] MEDS: LEVALBUTEROL (HFA) 15 GM INHALER INH SCH ×4 (02:07→19:48)
[2019-06-21] MEDS: HYDROCORTISONE 100 MG INJ IV SCH ×3 (05:57→21:39)
[2019-06-21] MEDS: FUROSEMIDE 40 MG INJ IV SCH (05:58)
[2019-06-21] MEDS: MEROPENEM 1 GM/50ML(PMX) 50 ML IVPB SCH ×2 (08:30→20:03)
[2019-06-21] MEDS: AMIODARONE 200 MG TAB GTB SCH (08:31)
[2019-06-21] MEDS: LEVETIRACETAM (100 MG/ML) 5ML CUP GTB SCH ×2 (08:31→20:03)
[2019-06-21] MEDS: LACTOBACILLUS RHAMNOSUS CAP PO SCH ×3 (08:31→20:03)
[2019-06-21] MEDS: ASPIRIN 81 MG TAB PEG SCH (08:31)
[2019-06-21] MEDS: FLUVOXAMINE MALEATE 25 MG TABLET GTB SCH (08:31)
[2019-06-21] MEDS: OLANZAPINE 5 MG TAB GTB SCH (08:31)
[2019-06-21] MEDS: BALSAM PERU/CASTOR OIL 60 GM TUBE TOP SCH (08:32)
[2019-06-21] MEDS: POLYETHYLENE GLYCOL 17 GM PACKET GTB SCH (08:32)
[2019-06-21] MEDS: DOCUSATE SODIUM 10 MG/ML (10ML CUP) GTB SCH ×2 (08:32→20:03)
[2019-06-21] MEDS ORDERED: POTASSIUM CHLORIDE 100 ML IVPB SCH (09:30)
[2019-06-21] MEDS ORDERED: POTASSIUM CHLORIDE 20 MEQ POWDER FOR ORAL SOLN PO PRN ×2 (09:30)
[2019-06-21] MEDS ORDERED: POTASSIUM CHLORIDE 20 MEQ POWDER FOR ORAL SOLN GTB PRN (09:30)
[2019-06-21] MEDS: VANCOMYCIN 750 MG (PMX) 250 ML IVPB SCH (09:33)
[2019-06-21] MEDS: ALBUMIN HUMAN 25% 100 ML IV SCH ×2 (09:34→16:52)
[2019-06-21] MEDS: POTASSIUM CHLORIDE 20 MEQ POWDER FOR ORAL SOLN PO PRN (09:43)
--- NOTE | 2019-06-21 09:49 | PN ---
Date/Time of Note Date/Time of Note DATE: 06/21/19 TIME: 09:42 Assessment/Plan VTE Prophylaxis Risk score (from Nsg)>0 risk: 13 SCD applied (from Nsg): Yes Pharmacological prophylaxis: heparin Lines/Catheters IV Catheter Type (from Nrsg): PICC Line Central line still needed: Yes Urinary Cath still in place: Yes Reason Cath still needed: terminal illness/intractable pain Assessment/Plan Assessment/Plan 1. Acute hypoxic respiratory failure, ARDS secondary to sepsis - weaned to FIO2 60% this am and will continue as tolerated. Will discuss with son goals of care since patient does not appear to be weanable from vent - Pulm on board and appreciate recommendations - wean down vent settings as able. Still on PEEP 10 - Continue IV antibiotics per ID recommendations. 2. Multifocal pneumonia - Sputum cx noted with MRSA and Bridget - ID on board and appreciate recommendations 3. Hypokalemia - replace 4. Abdominal distension - KUB noted - most likely secondary to anasarca. Will check US to assess for ascites 5. Atrial fibrillation with RVR- resolved - back in sinus rhythm - Cardiology consultation appreciated 6. Non-ST elevated [place] - Cardiology consultation appreciated and will continue current medications - Very mild elevation - continue aspirin and statin 7. Thrombocytopenia-improving - Very likely due to septic shock - Fibrinogen is elevated, unlikely DIC 8. Chronic dysphasia - Patient has PEG tube 9. Diabetes mellitus - continue on Lantus and ISS - sugars well controlled 10. Chronic encephalopathy - CT of the brain initially showed alarming findings however there appears to be a mixup with patient's name, patient's actual name is Trey Roberts, [id number]. Neurosurgeon was initially consulted for possible brain bleed and other findings however when comparing to the patient's actual chart in 2013, neurosurgeon reviewed the CT and MRI and found a similar findings with no acute emergent change. - Monitor closely, patient appears to be at baseline 11. Dyslipidemia - Continue home meds 12. Mood disorder - Continue home meds 13. Chronic kidney disease - stable - nephrology consultation appreciated 14. Failure to thrive - now DNR per families request 15. Anasarca - on Lasix BID and will monitor diuresis - will add albumin x3 doses 16. Disposition - Continue monitoring in ICU while on vent support. Will have goals of care discussion with son today given patient unable to be weaned from vent >35 minutes of critical care spent with patient at bedside. Result Diagram: 06/21/19 0420 06/21/19 0420 Results 24hrs Laboratory Tests Test 06/20/19 12:57 06/20/19 16:25 06/20/19 20:09 06/21/19 01:00 Bedside Glucose 153 166 134 85 Test 06/21/19 04:17 06/21/19 04:20 06/21/19 08:12 Bedside Glucose 75 94 White Blood Count 22.6 H Red Blood Count 2.58 L Hemoglobin 7.8 L Hematocrit 24.2 L Mean Corpuscular 93.8 Volume Mean Corpuscular 30.2 Hemoglobin Mean Corpuscular 32.2 Hemoglobin Concent Red Cell 14.7 H Distribution Width Platelet Count 97 #L Mean Platelet Volume 11.2 H Immature 1.100 H Granulocytes % Neutrophils % 94.4 H Lymphocytes % 2.5 L Monocytes % 1.8 Eosinophils % 0.0 Basophils % 0.2 Nucleated Red Blood 0.0 Cells % Immature 0.250 H Granulocytes # Neutrophils # 21.4 H Lymphocytes # 0.6 L Monocytes # 0.4 Eosinophils # 0.0 Basophils # 0.0 Nucleated Red Blood 0.0 Cells # Sodium Level 142 Potassium Level 3.2 #L Chloride Level 105 Carbon Dioxide Level 33 H Anion Gap 4 L Blood Urea Nitrogen 69 H Creatinine 0.79 Est Glomerular Filtrat Rate mL/min Glucose Level 87 # Calcium Level 7.8 L Subjective 24 Hr Interval Summary Free Text/Dictation Patient remains stable on vent support. Opens eyes when sedation turned down but still requiring 60% FIO2. Exam/Review of Systems Exam Vitals Vital Signs Date Temp Pulse Resp B/P (MAP) Pulse Ox O2 O2 Flow FiO2 Time Delivery Rate 06/21/19 79 20 97/65 (76) 91 06:30 06/21/19 Mechanical 06:00 Ventilator 06/21/19 60 05:43 06/21/19 97.6 04:00 Intake and Output 06/20/19 06/20/19 06/21/19 1515:00 23:00 07:00 IntakeIntake Total 772.52 ml 626.4 ml 607.6 ml OutputOutput Total 325 ml 875 ml 555 ml BalanceBalance 447.52 ml -248.6 ml 52.6 ml Exam General: Patient is intubated and sedated. no acute distress neck: supple Respiratory: Coarse to auscultation bilaterally. no wheezing Cardiovascular: Regular rate and rhythm, no obvious murmurs Gastrointestinal: non-tender to palpation, distended, bowel sounds heard. PEG in place Ext: diffuse anasarca. no cyanosis or clubbing skin: no rashes appreciated Results Results 24hrs Laboratory Tests Test 06/20/19 12:57 06/20/19 16:25 06/20/19 20:09 06/21/19 01:00 Bedside Glucose 153 166 134 85 Test 06/21/19 04:17 06/21/19 04:20 06/21/19 08:12 Bedside Glucose 75 94 White Blood Count 22.6 H Red Blood Count 2.58 L Hemoglobin 7.8 L Hematocrit 24.2 L Mean Corpuscular 93.8 Volume Mean Corpuscular 30.2 Hemoglobin Mean Corpuscular 32.2 Hemoglobin Concent Red Cell 14.7 H Distribution Width Platelet Count 97 #L Mean Platelet Volume 11.2 H Immature 1.100 H Granulocytes % Neutrophils % 94.4 H Lymphocytes % 2.5 L Monocytes % 1.8 Eosinophils % 0.0 Basophils % 0.2 Nucleated Red Blood 0.0 Cells % Immature 0.250 H Granulocytes # Neutrophils # 21.4 H Lymphocytes # 0.6 L Monocytes # 0.4 Eosinophils # 0.0 Basophils # 0.0 Nucleated Red Blood 0.0 Cells # Sodium Level 142 Potassium Level 3.2 #L Chloride Level 105 Carbon Dioxide Level 33 H Anion Gap 4 L Blood Urea Nitrogen 69 H Creatinine 0.79 Est Glomerular Filtrat Rate mL/min Glucose Level 87 # Calcium Level 7.8 L Medications Medication Current Medications IV Flush (NS 3 ml) 3 ml PER PROTOCOL IV ; Start 06/10/19 at 12:00 Ondansetron HCl (Zofran Inj) 4 mg Q6H PRN IV NAUSEA/VOMITING; Start 06/10/19 at 12:00 Acetaminophen (Tylenol Tab) 650 mg Q6H PRN PO .PAIN 1-3 OR TEMP Last admin istered on 06/13/19at 15:52; Admin Dose 650 MG; Start 06/10/19 at 12:00 Acetaminophen/ Hydrocodone Bitart ([place] (5/325)) 1 tab Q6H PRN PO .PAIN 4-6; Start 06/10/19 at 12:00 Morphine Sulfate (morphine) 2 mg Q4H PRN IV .PAIN 7-10 Last administered on 06/15/19at 16:57; Admin Dose 2 MG; Start 06/10/19 at 12:00 Vancomycin HCl (Vanco Iv Per Pharmacy) VANCOMYCIN PER PHARMACY PER PROTOCOL XX ; Start 06/10/19 at 12:30 Amiodarone HCl (Cordarone) 100 mg DAILY GTB Last administered on 06/21/19at 08:31; Admin Dose 100 MG; Start 06/11/19 at 09:00 Atorvastatin Calcium (Lipitor) 20 mg QHS GTB Last administered on 06/20/19at 20:00; Admin Dose 20 MG; Start 06/10/19 at 21:00 Levetiracetam (Keppra Liquid) 500 mg BID GTB Last administered on 06/21/19at 08:31; Admin Dose 500 MG; Start 06/10/19 at 21:00 Olanzapine (Zyprexa) 5 mg DAILY GTB Last administered on 06/21/19at 08:31; Admin Dose 5 MG; Start 06/11/19 at 09:00 Polyethylene Glycol (Miralax) 17 gm DAILY GTB Last administered on 06/15/19at 09:04; Admin Dose 17 GM; Start 06/11/19 at 09:00 Miscellaneous Information 1 ea NOTE XX ; Start 06/10/19 at 14:00 Glucose (Glutose) 15 gm Q15M PRN PO DECREASED GLUCOSE; Start 06/10/19 at 14:00 Glucose (Glutose) 22.5 gm Q15M PRN PO DECREASED GLUCOSE; Start 06/10/19 at 14:00 Dextrose (D50w Syringe) 25 ml Q15M PRN IV DECREASED GLUCOSE; Start 06/10/19 at 14:00 Dextrose (D50w Syringe) 50 ml Q15M PRN IV DECREASED GLUCOSE; Start 06/10/19 at 14:00 Glucagon (Glucagen) 1 mg Q15M PRN IM DECREASED GLUCOSE; Start 06/10/19 at 14:00 Glucose (Glutose) 15 gm Q15M PRN BUCCAL DECREASED GLUCOSE; Start 06/10/19 at 14:00 IV Flush (NS 10 ml) 10 ml [id number] PRN IV Line Patency; Start 06/10/19 at 16:00 Fluvoxamine Maleate (Fluvoxamine Maleate) 25 mg DAILY GTB Last administered on 06/21/19 08:31; Admin Dose 25 MG; Start 06/11/19 at 09:00 Aspirin (Aspirin) 81 mg DAILY PEG Last administered on 06/21/19 08:31; Admin D ose 81 MG; Start 06/11/19 at 09:00 Heparin Sodium (Porcine) (Heparin (5000 Units/1ml)) 5,000 unit Q8 SC Last administered on 06/14/19 06:01; Admin Dose 5,000 UNIT; Start 06/11/19 at 14:00; Status Hold Ipratropium [place] (Atrovent 0.02% (Neb)) 0.5 mg Q4H RESP THERAPY PRN HHN SHORTNESS OF BREATH; Start 06/12/19 at 10:00 Levalbuterol (Xopenex Neb) 1.25 mg Q4H RESP THERAPY PRN HHN shortness of breath; Start 06/12/19 at 10:00 Fentanyl 100 ml @ 2.5 mls/hr TITRATE IV Last administered on 06/21/19 01:55; Admin Dose 5 MLS/HR; Start 06/12/19 at 10:00 Phenylephrine HCl 80 mg/Dextrose 250 ml @ 18.75 mls/ hr TITRATE IV Last administered on 06/16/19 08:39; Admin Dose 15.1 MLS/HR; Start 06/12/19 at 14:00 Levalbuterol (Xopenex Hfa) 4 puff Q6H RESP THERAPY INH Last administered on 06/21/19 08:04; Admin Dose 4 PUFF; Start 06/12/19 at 20:00 Ipratropium [place] (Atrovent Hfa) 4 puff Q6H RESP THERAPY INH Last administered on 06/21/19 08:04; Admin Dose 4 PUFF; Start 06/12/19 at 20:00 Norepinephrine 32 mg/Dextrose 250 ml @ 0.47 mls/hr TITRATE IV Last administered on 06/18/19 23:09; Admin Dose 0.94 MLS/HR; Start 06/13/19 at 08:00 Meropenem/Sodium Chloride 50 ml @ 100 mls/hr Q12 IVPB Last administered on 06/21/19 08:30; Admin Dose 100 MLS/HR; Start 06/13/19 at 14:00 Docusate Sodium (Colace Liquid Cup) 100 mg BID GTB Last administered on 06/18/19 20:21; Admin Dose 100 MG; Start 06/14/19 at 12:30 Insulin Aspart (Novolog Insulin Pen) NOVOLOG *MILD* ALGORI... Q4 SC Last admini stered on 06/20/19 16:30; Admin Dose 1 UNIT; Start 06/16/19 at 21:00 Insulin Glargine (Lantus) 15 units DAILY@0800 SC Last administered on 06/20/19 16:29; Admin Dose 15 UNITS; Start 06/18/19 at 08:00 Caspofungin 50 mg/ Sodium Chloride 250 ml @ 250 mls/hr Q24H IVPB Last administered on 06/20/19 13:21; Admin Dose 250 MLS/HR; Start 06/18/19 at 13:00 Midazolam HCl 50 ml @ 1 mls/hr TITRATE IV Last administered on 06/18/19 09:43; Admin Dose 2 MLS/HR; Start 06/17/19 at 15:30 Hydrocortisone (Solu-Cortef) 50 mg Q8 IV Last administered on 06/21/19 05:57; Admin Dose 50 MG; Start 06/18/19 at 14:00 Propofol 100 ml @ 1.656 mls/ hr Q12H IV Last administered on 06/20/19 20:03; Admin Dose 6.624 MLS/HR; Start 06/18/19 at 10:00 Lactobacillus Acidophilus/ Rhamnosus (Culturelle) 1 cap TID PO Last administered on 06/21/19 08:31; Admin Dose 1 CAP; Start 06/18/19 at 21:00 Vancomycin/Sodium Chloride 250 ml @ 125 mls/hr Q36H IVPB Last administered on 06/21/19 09:33; Admin Dose 125 MLS/HR; Start 06/19/19 at 21:00 Furosemide (Lasix) 40 mg BID DIURETICS IV Last administered on 06/21/19 05:58 ; Admin Dose 40 MG; Start 06/19/19 at 18:00 Potassium Chloride (Potassium Chloride Pwd/Soln) 20 meq PER PROTOCOL PRN PO POTASSIUM REPLACEMENT PROTOCOL; Start 06/21/19 at 09:30 Potassium Chloride (Potassium Chloride Pwd/Soln) 30 meq PER PROTOCOL PRN PO POTASSIUM REPLACEMENT PROTOCOL; Start 06/21/19 at 09:30 Potassium Chloride (Potassium Chloride Pwd/Soln) 40 meq PER PROTOCOL PRN PO POTASSIUM REPLACEMENT PROTOCOL; Start 06/21/19 at 09:30 Albumin Human 100 ml @ 100 mls/hr Q8H IV Last administered on 06/21/19at 09:34; Admin Dose 100 MLS/HR; Start 06/21/19 at 09:30; Stop 06/22/19 at 02:29 SHENG DONNELLY MD Jun 21, 2019 09:48
[2019-06-21] MEDS: PROPOFOL 100 ML IV SCH ×2 (09:54→16:49)
--- NOTE | 2019-06-21 12:17 | CONS ---
Consult Date/Type/Reason Admit Date/Time Jun 10, 2019 at 12:38 Initial Consult Date 06/11/19 Type of Consultation: Pulm/CCM Requesting Provider: MALINI GOMEZ Date/Time of Note DATE: 06/21/19 TIME: 12:14 Subjective Sedated on the vent. Peak and plateau pressures remain elevated. Objective Vitals Vital Signs Date Temp Pulse Resp B/P (MAP) Pulse Ox O2 O2 Flow FiO2 Time Delivery Rate 06/21/19 64 20 98 60 11:40 06/21/19 92/58 (69) Mechanical 11:00 Ventilator 06/21/19 97.8 08:00 Intake and Output 06/20/19 06/20/19 06/21/19 1515:00 23:00 07:00 IntakeIntake Total 772.52 ml 626.4 ml 657.6 ml OutputOutput Total 325 ml 875 ml 575 ml BalanceBalance 447.52 ml -248.6 ml 82.6 ml Exam HEENT: Neck supple; no JVD; no LAD; + ET tube CVS: RRR, S1 and S2 CHEST: Coarse BS B/L ABD: Soft, NT, + BS EXT: No c/c; + edema Results/Medications Result Diagram: 06/21/19 0420 06/21/19 0420 Results 24 hrs Laboratory Tests Test 06/20/19 12:57 06/20/19 16:25 06/20/19 20:09 06/21/19 01:00 Bedside Glucose 153 166 134 85 Test 06/21/19 04:17 06/21/19 04:20 06/21/19 08:12 Bedside Glucose 75 94 White Blood Count 22.6 H Red Blood Count 2.58 L Hemoglobin 7.8 L Hematocrit 24.2 L Mean Corpuscular 93.8 Volume Mean Corpuscular 30.2 Hemoglobin Mean Corpuscular 32.2 Hemoglobin Concent Red Cell 14.7 H Distribution Width Platelet Count 97 #L Mean Platelet Volume 11.2 H Immature 1.100 H Granulocytes % Neutrophils % 94.4 H Lymphocytes % 2.5 L Monocytes % 1.8 Eosinophils % 0.0 Basophils % 0.2 Nucleated Red Blood 0.0 Cells % Immature 0.250 H Granulocytes # Neutrophils # 21.4 H Lymphocytes # 0.6 L Monocytes # 0.4 Eosinophils # 0.0 Basophils # 0.0 Nucleated Red Blood 0.0 Cells # Sodium Level 142 Potassium Level 3.2 #L Chloride Level 105 Carbon Dioxide Level 33 H Anion Gap 4 L Blood Urea Nitrogen 69 H Creatinine 0.79 Est Glomerular Filtrat Rate mL/min Glucose Level 87 # Calcium Level 7.8 L Home Meds Reported Medications Pantoprazole* (Protonix*) 40 Mg Tablet.dr, 40 MG PO DAILY, TAB 09/03/14 Donepezil* (Aricept*) 5 Mg Tablet, 5 MG PO DAILY, TAB 09/03/14 Atorvastatin Calcium* (Atorvastatin Calcium*) 20 Mg Tablet, 20 MG PO HS, TAB 09/03/14 Saxagliptin Hcl/Metformin Hcl (KOMBIGLYZE XR 5-500 MG TABLET) 1 Each Tbmp.24hr, 1 EACH PO DAILY 09/03/14 Medications Current Medications IV Flush (NS 3 ml) 3 ml PER PROTOCOL IV ; Start 06/10/19 at 12:00 Ondansetron HCl (Zofran Inj) 4 mg Q6H PRN IV NAUSEA/VOMITING; Start 06/10/19 at 12:00 Acetaminophen (Tylenol Tab) 650 mg Q6H PRN PO .PAIN 1-3 OR TEMP Last administered on 06/13/19at 15:52; Admin Dose 650 MG; Start 06/10/19 at 12:00 Acetaminophen/ Hydrocodone Bitart ([place] (5/325)) 1 tab Q6H PRN PO .PAIN 4-6; Start 06/10/19 at 12:00 Morphine Sulfate (morphine) 2 mg Q4H PRN IV .PAIN 7-10 Last administered on 06/15/19at 16:57; Admin Dose 2 MG; Start 06/10/19 at 12:00 Vancomycin HCl (Vanco Iv Per Pharmacy) VANCOMYCIN PER PHARMACY PER PROTOCOL XX ; Start 06/10/19 at 12:30 Amiodarone HCl (Cordarone) 100 mg DAILY GTB Last administered on 06/21/19at 08:31; Admin Dose 100 MG; Start 06/11/19 at 09:00 Atorvastatin Calcium (Lipitor) 20 mg QHS GTB Last administered on 06/20/19at 20 :00; Admin Dose 20 MG; Start 06/10/19 at 21:00 Levetiracetam (Keppra Liquid) 500 mg BID GTB Last administered on 7/27/19at 08:31; Admin Dose 500 MG; Start 06/10/19 at 21:00 Olanzapine (Zyprexa) 5 mg DAILY GTB Last administered on 06/21/19 08:31; Admin Dose 5 MG; Start 06/11/19 at 09:00 Polyethylene Glycol (Miralax) 17 gm DAILY GTB Last administered on 06/15/19 09:04; Admin Dose 17 GM; Start 06/11/19 at 09:00 Miscellaneous Information 1 ea NOTE XX ; Start 06/10/19 at 14:00 Glucose (Glutose) 15 gm Q15M PRN PO DECREASED GLUCOSE; Start 06/10/19 at 14:00 Glucose (Glutose) 22.5 gm Q15M PRN PO DECREASED GLUCOSE; Start 06/10/19 at 14:00 Dextrose (D50w Syringe) 25 ml Q15M PRN IV DECREASED GLUCOSE; Start 06/10/19 at 14:00 Dextrose (D50w Syringe) 50 ml Q15M PRN IV DECREASED GLUCOSE; Start 06/10/19 at 14:00 Glucagon (Glucagen) 1 mg Q15M PRN IM DECREASED GLUCOSE; Start 06/10/19 at 14:00 Glucose (Glutose) 15 gm Q15M PRN BUCCAL DECREASED GLUCOSE; Start 06/10/19 at 14:00 IV Flush (NS 10 ml) 10 ml [id number] PRN IV Line Patency; Start 06/10/19 at 16:00 Fluvoxamine Maleate (Fluvoxamine Maleate) 25 mg DAILY GTB Last administered on 06/21/19 08:31; Admin Dose 25 MG; Start 06/11/19 at 09:00 Aspirin (Aspirin) 81 mg DAILY PEG Last administered on 06/21/19 08:31; Admin Dose 81 MG; Start 06/11/19 at 09:00 Heparin Sodium (Porcine) (Heparin (5000 Units/1ml)) 5,000 unit Q8 SC Last administered on 06/14/19at 06:01; Admin Dose 5,000 UNIT; Start 06/11/19 at 14:00; Status Hold Ipratropium [place] (Atrovent 0.02% (Neb)) 0.5 mg Q4H RESP THERAPY PRN HHN SHORTNESS OF BREATH; Start 06/12/19 at 10:00 Levalbuterol (Xopenex Neb) 1.25 mg Q4H RESP THERAPY PRN HHN shortness of breath; Start 06/12/19 at 10:00 Fentanyl 100 ml @ 2.5 mls/hr TITRATE IV Last administered on 06/21/19 01:55; Admin Dose 5 MLS/HR; Start 06/12/19 at 10:00 Phenylephrine HCl 80 mg/Dextrose 250 ml @ 18.75 mls/ hr TITRATE IV Last administered on 06/16/19 08:39; Admin Dose 15.1 MLS/HR; Start 06/12/19 at 14:00 Levalbuterol (Xopenex Hfa) 4 puff Q6H RESP THERAPY INH Last administered on 06/21/19 08:04; Admin Dose 4 PUFF; Start 06/12/19 at 20:00 Ipratropium [place] (Atrovent Hfa) 4 puff Q6H RESP THERAPY INH Last administered on 06/21/19 08:04; Admin Dose 4 PUFF; Start 06/12/19 at 20:00 Norepinephrine 32 mg/Dextrose 250 ml @ 0.47 mls/hr TITRATE IV Last administered on 06/18/19 23:09; Admin Dose 0.94 MLS/HR; Start 06/13/19 at 08:00 Meropenem/Sodium Chloride 50 ml @ 100 mls/hr Q12 IVPB Last administered on 06/21/19 08:30; Admin Dose 100 MLS/HR; Start 06/13/19 at 14:00 Docusate Sodium (Colace Liquid Cup) 100 mg BID GTB Last administered on 06/18/19 20:21; Admin Dose 100 MG; Start 06/14/19 at 12:30 Insulin Aspart (Novolog Insulin Pen) NOVOLOG *MILD* ALGORI... Q4 SC Last administered on 06/20/19 16:30; Admin Dose 1 UNIT; Start 06/16/19 at 21:00 Insulin Glargine (Lantus) 15 units DAILY@0800 SC Last administered on 06/20/19 16:29; Admin Dose 15 UNITS; Start 06/18/19 at 08:00 Caspofungin 50 mg/ Sodium Chloride 250 ml @ 250 mls/hr Q24H IVPB Last administered on 06/20/19 13:21; Admin Dose 250 MLS/HR; Start 06/18/19 at 13:00 Midazolam HCl 50 ml @ 1 mls/hr TITRATE IV Last administered on 06/18/19 09:43; Admin Dose 2 MLS/HR; Start 06/17/19 at 15:30 Hydrocortisone (Solu-Cortef) 50 mg Q8 IV Last administered on 06/21/19 05:57; Admin Dose 50 MG; Start 06/18/19 at 14:00 Propofol 100 ml @ 1.656 mls/ hr Q12H IV Last administered on 06/20/19 20:03; Admin Dose 6.624 MLS/HR; Start 06/18/19 at 10:00 Lactobacillus Acidophilus/ Rhamnosus (Culturelle) 1 cap TID PO Last administered on 06/21/19 08:31; Admin Dose 1 CAP; Start 06/18/19 at 21:00 Vancomycin/Sodium Chloride 250 ml @ 125 mls/hr Q36H IVPB Last administered on 06/21/19 09:33; Admin Dose 125 MLS/HR; Start 06/19/19 at 21:00 Furosemide (Lasix) 40 mg BID DIURETICS IV Last administered on 06/21/19 05:58; Admin Dose 40 MG; Start 06/19/19 at 18:00 Potassium Chloride (Potassium Chloride Pwd/Soln) 20 meq PER PROTOCOL PRN PO POTASSIUM REPLACEMENT PROTOCOL; Start 06/21/19 at 09:30 Potassium Chloride (Potassium Chloride Pwd/Soln) 30 meq PER PROTOCOL PRN PO POTASSIUM REPLACEMENT PROTOCOL; Start 06/21/19 at 09:30 Potassium Chloride (Potassium Chloride Pwd/Soln) 40 meq PER PROTOCOL PRN PO POTASSIUM REPLACEMENT PROTOCOL Last administered on 06/21/19 09:43; Admin Dose 40 MEQ; Start 06/21/19 at 09:30 Albumin Human 100 ml @ 100 mls/hr Q8H IV Last administered on 06/21/19 09:34; Admin Dose 100 MLS/HR; Start 06/21/19 at 09:30; Stop 06/22/19 at 02:29 Assessment/Plan Assessment/Plan (Daily) IMP: 1. Acute hypoxemic and hypercapnic respiratory failure radiographic findings consistent with ARDS. 2. Multilobar pneumonia 3. Septic Shock 4. Encephalopathy toxic metabolic 5. Thrombocytopenia 6. Dysphagia RECS: 1. Vent--Lower Vt to 400 ml; increase rate 26; maintain Pplat < 30 2. Allow for increase PaCO2 3. Pressors to MAP > 65 mm Hg 4. Abx per ID 5. TF/Free H20 40 min cc time GABY BERRY MD Jun 21, 2019 12:17
--- NOTE | 2019-06-21 12:34 | PN ---
DATE: 06/21/2019 INFECTIOUS DISEASE PROGRESS NOTE SUBJECTIVE: No acute changes. The patient is off pressors since yesterday, looks comfortable. No f oriana overnight. WBC 22.6, platelets 97, neutrophils 94.4, BUN 69, creatinine 0.79. DIAGNOSTICS: Chest x-ray this morning revealed slightly improved appearance of multifocal bilateral pulmonary opacities. INDWELLINGS: Endotracheal tube, PEG, Dial, PICC line. ANTIMICROBIALS: The patient is on: 1. Vancomycin. 2. Cancidas. 3. Meropenem. MICROBIOLOGY: Urine culture grew Klebsiella pneumoniae, ESBL. Sputum culture grew Bridget and MRSA. Blood cultures remain negative. PHYSICAL EXAMINATION: GENERAL: This is a chronically ill-appearing, elderly woman who is in no distress. HEENT: Head atraumatic, normocephalic. NECK: Supple, trachea midline. CHEST: Rise symmetrical. Breath sounds diminished to bases. HEART: S1, S2. ABDOMEN: Distended, soft. Bowel tones hypoactive. EXTREMITIES: Bilateral edema. SKIN: The patient has significant anasarca. ASSESSMENT: 1. Resolving sepsis, status post shock. 2. Urinary tract infection. 3. Bilateral pneumonia. 4. Acute hypoxemic respiratory failure. 5. Diarrhea, rule out Clostridium difficile. 6. Kmj-[id number] myocardial infarction. 7. Atrial fibrillation. 8. Diabetes. PLAN: The patient remains unchanged, stable off pressors, still on Solu-Cortef. Continue on current antibiotics and send stool for C. diff. Dictated By: JACKIE CORTÉS MAP AND CHART MOUNTER for LARISSA SOTO/NTS Conf#: [id number] DID#: [id number]
[2019-06-21] MEDS: CASPOFUNGIN 50 MG in SOD CHLORIDE 0.9% 250 ML IVPB SCH (12:55)
--- NOTE | 2019-06-21 15:05 | CONS ---
Assessment/Plan Assessment/Plan Assessment/Plan (Daily) DNR code status - Hypokalemia- replaced; fu am BMP 1. acute Hypernatremia due to severe dehydration -resolved 2. acute Hyperkalemia due to FLOYD - Resolved 3. acute kidney injury on CKD III due to ATN from sepsis and Prerenal azotemia 4 . Septic shock due to multifocal PNA and UTI 5. Acute hypoxic respiratory failure due to PNA and Septic shock - Failed BIPAP- Intubated on 06/12/19 , 6. H/O severe dementia 7. H/O HTN 8. H/O HL 9. SNF resident 10. acute on chronic encephalopathy 11 h/o Dysphagia S/p G tube placement 12. Hypocalcemia with Ca 6.7 13. UTI with Urine cx growing ESBL Klebsiella Plan: BUN/Cr 69/.0.79, K 3.1- K replaced; fu am BMP UO- 1.8 L /24hrs currently on IV abx meropenem for ESBL Klebsiella UTI, Sputum Cx grew Bridget Albicans and MRSA- pt is on IV cancidas, and IV vancomycin- Renally dose all abx and monitor electrolytes Ventilator Management as per pulmonary DNR code status lasix 40mg IV BID for diuresis Ca 8.4 today, will give calcium gluconate if Ca drops lower than 7.0 Total critical care time spent 40 mins. Will follow up. Patient seen in collaboration with Dr Tomas Foster. Plan of care dw staff.family at [facility]-all Qs answered. Consultation Date/Type/Reason Admit Date/Time Jun 10, 2019 at 12:38 Initial Consult Date 06/11/19 Type of Consult NEPHROLOGY Reason for Consultation FLOYD Requesting Provider: MALINI GOMEZ Date/Time of Note DATE: 06/21/19 TIME: 15:02 24 HR Interval Summary Free Text/Dictation Nad afebrile remains intubated; seems comfortable on supplement oxygen K 3.1- will replace Calcium- 8.5 today BS elevated BUN/Cr - 69/0.79 today UO- 1.8L /24hrs family at [facility]-all Qs answered dw staff Subjective hx not possible: pt non-verbal Constitutional: requiring IVF, requiring O2 Exam/Review of Systems Exam Vitals Vital Signs Date Temp Pulse Resp B/P (MAP) Pulse Ox O2 O2 Flow FiO2 Time Delivery Rate 06/21/19 50 12:13 06/21/19 66 12:00 06/21/19 20 98 11:40 06/21/19 92/58 (69) Mechanical 11:00 Ventilator 06/21/19 97.8 08:00 Intake and Output 06/20/19 06/20/19 06/21/19 1515:00 23:00 07:00 IntakeIntake Total 772.52 ml 626.4 ml 665.72 ml OutputOutput Total 325 ml 875 ml 575 ml BalanceBalance 447.52 ml -248.6 ml 90.72 ml Constitutional: well developed, non-verbal, frail Psych: nl mood/affect Eyes: nl lids, nl sclera ENMT: nl external ears & nose Neck: other (ET tube intact) Cardiovascular: nl pulses, other (s1s2) Gastrointestinal: soft Musculoskeletal: muscle weakness Extremities: normal pulses Neurological: unresponsive Skin: other (no rash noted) Results Result Diagram: 06/21/19 0420 06/21/19 0420 Results 24hrs Laboratory Tests Test 06/20/19 16:25 06/20/19 20:09 06/21/19 01:00 06/21/19 04:17 Bedside Glucose 166 134 85 75 Test 06/21/19 04:20 06/21/19 08:12 06/21/19 12:54 White Blood Count 22.6 H Red Blood Count 2.58 L Hemoglobin 7.8 L Hematocrit 24.2 L Mean Corpuscular 93.8 Volume Mean Corpuscular 30.2 Hemoglobin Mean Corpuscular 32.2 Hemoglobin Concent Red Cell 14.7 H Distribution Width Platelet Count 97 #L Mean Platelet Volume 11.2 H Immature 1.100 H Granulocytes % Neutrophils % 94.4 H Lymphocytes % 2.5 L Monocytes % 1.8 Eosinophils % 0.0 Basophils % 0.2 Nucleated Red Blood 0.0 Cells % Immature 0.250 H Granulocytes # Neutrophils # 21.4 H Lymphocytes # 0.6 L Monocytes # 0.4 Eosinophils # 0.0 Basophils # 0.0 Nucleated Red Blood 0.0 Cells # Sodium Level 142 Potassium Level 3.2 #L Chloride Level 105 Carbon Dioxide Level 33 H Anion Gap 4 L Blood Urea Nitrogen 69 H Creatinine 0.79 Est Glomerular Filtrat Rate mL/min Glucose Level 87 # Calcium Level 7.8 L Bedside Glucose 94 115 Medications Medication Current Medications IV Flush (NS 3 ml) 3 ml PER PROTOCOL IV ; Start 06/10/19 at 12:00 Ondansetron HCl (Zofran Inj) 4 mg Q6H PRN IV NAUSEA/VOMITING; Start 06/10/19 at 12:00 Acetaminophen (Tylenol Tab) 650 mg Q6H PRN PO .PAIN 1-3 OR TEMP Last administered on 06/13/19at 15:52; Admin Dose 650 MG; Start 06/10/19 at 12:00 Acetaminophen/ Hydrocodone Bitart ([place] (5/325)) 1 tab Q6H PRN PO .PAIN 4-6; Start 06/10/19 at 12:00 Morphine Sulfate (morphine) 2 mg Q4H PRN IV .PAIN 7-10 Last administered on 06/15/19at 16:57; Admin Dose 2 MG; Start 06/10/19 at 12:00 Vancomycin HCl (Vanco Iv Per Pharmacy) VANCOMYCIN PER PHARMACY PER PROTOCOL XX ; Start 06/10/19 at 12:30 Amiodarone HCl (Cordarone) 100 mg DAILY GTB Last administered on 06/21/19at 08:31; Admin Dose 100 MG; Start 06/11/19 at 09:00 Atorvastatin Calcium (Lipitor) 20 mg QHS GTB Last administered on 06/20/19at 20:00; Admin Dose 20 MG; Start 06/10/19 at 21:00 Levetiracetam (Keppra Liquid) 500 mg BID GTB Last administered on 06/21/19 08:31; Admin Dose 500 MG; Start 06/10/19 at 21:00 Olanzapine (Zyprexa) 5 mg DAILY GTB Last administered on 06/21/19 08:31; Admin Dose 5 MG; Start 06/11/19 at 09:00 Polyethylene Glycol (Miralax) 17 gm DAILY GTB Last administered on 06/15/19at 09:04; Admin Dose 17 GM; Start 06/11/19 at 09:00 Miscellaneous Information 1 ea NOTE XX ; Start 06/10/19 at 14:00 Glucose (Glutose) 15 gm Q15M PRN PO DECREASED GLUCOSE; Start 06/10/19 at 14:00 Glucose (Glutose) 22.5 gm Q15M PRN PO DECREASED GLUCOSE; Start 06/10/19 at 14:00 Dextrose (D50w Syringe) 25 ml Q15M PRN IV DECREASED GLUCOSE; Start 06/10/19 at 14:00 Dextrose (D50w Syringe) 50 ml Q15M PRN IV DECREASED GLUCOSE; Start 06/10/19 at 14:00 Glucagon (Glucagen) 1 mg Q15M PRN IM DECREASED GLUCOSE; Start 06/10/19 at 14:00 Glucose (Glutose) 15 gm Q15M PRN BUCCAL DECREASED GLUCOSE; Start 06/10/19 at 14:00 IV Flush (NS 10 ml) 10 ml [id number] PRN IV Line Patency; Start 06/10/19 at 16:00 Fluvoxamine Maleate (Fluvoxamine Maleate) 25 mg DAILY GTB Last administered on 06/21/19 08:31; Admin Dose 25 MG; Start 06/11/19 at 09:00 Aspirin (Aspirin) 81 mg DAILY PEG Last administered on 06/21/19 08:31; Admin Dose 81 MG; Start 06/11/19 at 09:00 Heparin Sodium (Porcine) (Heparin (5000 Units/1ml)) 5,000 unit Q8 SC Last administered on 06/14/19 06:01; Admin Dose 5,000 UNIT; Start 06/11/19 at 14:00; Status Hold Ipratropium [place] (Atrovent 0.02% (Neb)) 0.5 mg Q4H RESP THERAPY PRN HHN SHORTNESS OF BREATH; Start 06/12/19 at 10:00 Levalbuterol (Xopenex Neb) 1.25 mg Q4H RESP THERAPY PRN HHN shortness of breath; Start 06/12/19 at 10:00 Fentanyl 100 ml @ 2.5 mls/hr TITRATE IV Last administered on 06/21/19 01:55; Admin Dose 5 MLS/HR; Start 06/12/19 at 10:00 Phenylephrine HCl 80 mg/Dextrose 250 ml @ 18.75 mls/ hr TITRATE IV Last administered on 06/16/19 08:39; Admin Dose 15.1 MLS/HR; Start 06/12/19 at 14:00 Levalbuterol (Xopenex Hfa) 4 puff Q6H RESP THERAPY INH Last administered on 06/21/19 08:04; Admin Dose 4 PUFF; Start 06/12/19 at 20:00 Ipratropium [place] (Atrovent Hfa) 4 puff Q6H RESP THERAPY INH Last admini stered on 06/21/19 08:04; Admin Dose 4 PUFF; Start 06/12/19 at 20:00 Norepinephrine 32 mg/Dextrose 250 ml @ 0.47 mls/hr TITRATE IV Last administered on 06/18/19 23:09; Admin Dose 0.94 MLS/HR; Start 06/13/19 at 08:00 Meropenem/Sodium Chloride 50 ml @ 100 mls/hr Q12 IVPB Last administered on 05/27 08:30; Admin Dose 100 MLS/HR; Start 06/13/19 at 14:00 Docusate Sodium (Colace Liquid Cup) 100 mg BID GTB Last administered on 06/18/19 20:21; Admin Dose 100 MG; Start 06/14/19 at 12:30 Insulin Aspart (Novolog Insulin Pen) NOVOLOG *MILD* ALGORI... Q4 SC Last administered on 06/20/19 16:30; Admin Dose 1 UNIT; Start 06/16/19 at 21:00 Insulin Glargine (Lantus) 15 units DAILY@0800 SC Last administered on 06/20/19 16:29; Admin Dose 15 UNITS; Start 06/18/19 at 08:00 Caspofungin 50 mg/ Sodium Chloride 250 ml @ 250 mls/hr Q24H IVPB Last administered on 06/21/19 12:55; Admin Dose 250 MLS/HR; Start 06/18/19 at 13:00 Midazolam HCl 50 ml @ 1 mls/hr TITRATE IV Last administered on 06/18/19 09:43; Admin Dose 2 MLS/HR; Start 06/17/19 at 15:30 Hydrocortisone (Solu-Cortef) 50 mg Q8 IV Last administered on 06/21/19 13:02; Admin Dose 50 MG; Start 06/18/19 at 14:00 Propofol 100 ml @ 1.656 mls/ hr Q12H IV Last administered on 06/20/19 20:03; Admin Dose 6.624 MLS/HR; Start 06/18/19 at 10:00 Lactobacillus Acidophilus/ Rhamnosus (Culturelle) 1 cap TID PO Last administered on 06/21/19 12:54; Admin Dose 1 CAP; Start 06/18/19 at 21:00 Vancomycin/Sodium Chloride 250 ml @ 125 mls/hr Q36H IVPB Last administered on 06/21/19 09:33; Admin Dose 125 MLS/HR; Start 06/19/19 at 21:00 Furosemide (Lasix) 40 mg BID DIURETICS IV Last administered on 06/21/19 05:58; Admin Dose 40 MG; Start 06/19/19 at 18:00 Potassium Chloride (Potassium Chloride Pwd/Soln) 20 meq PER PROTOCOL PRN PO POTASSIUM REPLACEMENT PROTOCOL; Start 06/21/19 at 09:30 Potassium Chloride (Potassium Chloride Pwd/Soln) 30 meq PER PROTOCOL PRN PO POTASSIUM REPLACEMENT PROTOCOL; Start 06/21/19 at 09:30 Potassium Chloride (Potassium Chloride Pwd/Soln) 40 meq PER PROTOCOL PRN PO POTASSIUM REPLACEMENT PROTOCOL Last administered on 06/21/19 09:43; Admin Dose 40 MEQ; Start 06/21/19 at 09:30 Albumin Human 100 ml @ 100 mls/hr Q8H IV Last administered on 06/21/19 09:34; Admin Dose 100 MLS/HR; Start 06/21/19 at 09:30; Stop 06/22/19 at 02:29 DEEPIKA SERNA Jun 21, 2019 15:05
[2019-06-21] MEDS ORDERED: BUMETANIDE 12 MG in DEXTROSE 5% 72 ML IV ONE (16:00)
[2019-06-21] MEDS: ATORVASTATIN 20 MG TAB GTB SCH (20:03)
[2019-06-22] VITALS (52 sets, daily range): BP systolic 116–171; BP diastolic 64–91; PULSE 74–107; RESP 15–35
[2019-06-22] MEDS: ALBUMIN HUMAN 25% 100 ML IV SCH ×3 (00:33→17:29)
[2019-06-22] MEDS: INSULIN ASPART [NOVOLOG] 3 ML PEN SC SCH ×6 (00:38→21:00)
[2019-06-22] MEDS: IPRATROPIUM (HFA) 12.9 GM INHALER INH SCH ×4 (01:53→19:19)
[2019-06-22] MEDS: LEVALBUTEROL (HFA) 15 GM INHALER INH SCH ×4 (01:54→19:19)
[2019-06-22] MEDS: HYDROCORTISONE 100 MG INJ IV SCH ×3 (05:25→21:38)
[2019-06-22] MEDS: PROPOFOL 100 ML IV SCH ×2 (05:32→18:34)
--- NOTE | 2019-06-22 08:40 | PN ---
Date/Time of Note Date/Time of Note DATE: 06/22/19 TIME: 08:33 Assessment/Plan VTE Prophylaxis Risk score (from Nsg)>0 risk: 13 SCD applied (from Nsg): Yes Pharmacological prophylaxis: NA/contraindicated Pharm contraindication: anticoag not tolerated Lines/Catheters IV Catheter Type (from Nrsg): PICC Line Central line still needed: Yes Urinary Cath still in place: Yes Reason Cath still needed: terminal illness/intractable pain Assessment/Plan Assessment/Plan 1. Acute hypoxic respiratory failure, ARDS secondary to sepsis - CXR noted with increased congestion - will try Bumex drip again today and monitoring I/O - Discussed with son yesterday need to decide on trach vs comfort care. Will discuss with siblings - Pulm on board and appreciate recommendations - wean down vent settings as able. Still on PEEP 10 with FIO2 80% this am - Continue IV antibiotics per ID recommendations. 2. Multifocal pneumonia - Sputum cx noted with MRSA and Bridget - ID on board and appreciate recommendations 3. Hypokalemia - replace 4. Abdominal distension - KUB noted and US with small ascites - most likely secondary to anasarca. 5. Atrial fibrillation with RVR- resolved - back in sinus rhythm - Cardiology consultation appreciated 6. Non-ST elevated HI - Cardiology consultation appreciated and will continue current medications - Very mild elevation - continue aspirin and statin 7. Thrombocytopenia-improving - Very likely due to septic shock - Fibrinogen is elevated, unlikely DIC 8. Chronic dysphasia - Patient has PEG tube 9. Diabetes mellitus - continue on Lantus and ISS - sugars controlled 10. Chronic encephalopathy - CT of the brain initially showed alarming findings however there appears to be a mixup with patient's name, patient's actual name is Trey Robertsbright [id number]. Neurosurgeon was initially consulted for possible brain bleed and other findings however when comparing to the patient's actual chart in 2013, neurosurgeon reviewed the CT and MRI and found a similar findings with no acute emergent change. - Monitor closely, patient appears to be at baseline 11. Dyslipidemia - Continue home meds 12. Mood disorder - Continue home meds 13. Chronic kidney disease - stable - nephrology consultation appreciated 14. Failure to thrive - now DNR per families request 15. Anasarca - was on Bumex yesterday for 12 hours and responded well. Will do bumex again today and start bumex BID tomorrow 16. Disposition - Continue monitoring in ICU while on vent support. Bumex drip today to help with diffuse anasarca. Goals of care discussed with son, Ghassan, and will plan to discuss with siblings trach placement vs comfort care >35 minutes of critical care spent with patient at bedside. Result Diagram: 06/22/19 0443 06/22/19 0444 Results 24hrs Laboratory Tests Test 06/21/19 12:54 06/21/19 16:48 06/21/19 20:06 06/22/19 00:30 Bedside Glucose 115 154 183 214 Test 06/22/19 04:43 06/22/19 04:44 06/22/19 05:00 06/22/19 05:07 White Blood Count 18.5 H Red Blood Count 2.29 L Hemoglobin 7.1 L Hematocrit 21.9 L Mean Corpuscular 95.6 Volume Mean Corpuscular 31.0 Hemoglobin Mean Corpuscular 32.4 Hemoglobin Concen t Red Cell 14.9 H Distribution Width Platelet Count 102 L Mean Platelet 11.2 H Volume Immature 1.600 H Granulocytes % Neutrophils % 92.8 H Lymphocytes % 2.3 L Monocytes % 3.2 Eosinophils % 0.0 Basophils % 0.1 Nucleated Red 0.0 Blood Cells % Immature 0.300 H Granulocytes # Neutrophils # 17.1 H Lymphocytes # 0.4 L Monocytes # 0.6 Eosinophils # 0.0 Basophils # 0.0 Nucleated Red 0.0 Blood Cells # Sodium Level 143 143 Potassium Level 3.1 L 3.2 L Chloride Level 104 103 Carbon Dioxide 33 H 34 H Level Anion Gap 6 6 Blood Urea 73 H 74 H Nitrogen Creatinine 0.86 0.73 Est Glomerular Filtrat Rate mL/min Glucose Level 155 151 Calcium Level 8.5 8.4 Phosphorus Level 4.7 Magnesium Level 2.2 Albumin 2.7 L Blood Gas Blood arterial Specimen Source Arterial Blood 06/22/2019 4:44:5 Date Drawn 7 AM Arterial Blood pH 7.445 (Temp corrected) Arterial Blood 44.3 pCO2 (Temp correct) Arterial Blood 65.6 L pO2 (Temp corrected) Arterial Blood 29.8 H HCO3 Arterial Blood 5.1 H Base Excess Arterial Blood 92.3 L Oxygen Saturation James Test ACCEPTAB Arterial Blood Right Radial Gas Puncture Site Arterial 0 Blood Carboxyhemo globin Arterial Blood 0.4 Methemoglobin Blood Gas A-a O2 530.7 H Differential Oxyhemoglobin 91.9 L Percent Blood Gas 37.0 Temperature Blood Gas 26.0 Respiration Rate Blood Gas Actual 30 Respiration Rate Blood Gas VENT - AC Modality FiO2 90.0 Blood Gas Tidal 400.0 Volume Blood Gas Low 10.0 PEEP Setting Blood Gas CT Notified Whom Blood Gas 06/22/2019 5:02:2 Notified Time 1 AM Bedside Glucose 136 Subjective 24 Hr Interval Summary Free Text/Dictation Patient remains intubated and sedated. Responded well to bumex drip yesterday with 1 L out. Still on 80% FIO2 this am. Exam/Review of Systems Exam Vitals Vital Signs Date Temp Pulse Resp B/P (MAP) Pulse Ox O2 O2 Flow FiO2 Time Delivery Rate 06/22/19 77 26 128/78 100 06:30 (95) 06/22/19 Mechanical 06:00 Ventilator 06/22/19 90 05:30 06/22/19 97.7 04:00 Intake and Output 06/21/19 06/21/19 06/22/19 1515:00 23:00 07:00 IntakeIntake Total 1163.17 ml 904.24 ml 1023.5 ml OutputOutput Total 270 ml 535 ml 570 ml BalanceBalance 893.17 ml 369.24 ml 453.5 ml Exam General: Patient is intubated and sedated. no acute distress neck: supple Respiratory: Coarse to auscultation bilaterally. no wheezing Cardiovascular: Regular rate and rhythm, no obvious murmurs Gastrointestinal: Non-tender to palpation, distended, bowel sounds heard. PEG in place Ext: diffuse anasarca. no cyanosis or clubbing skin: no rashes appreciated Results Results 24hrs Laboratory Tests Test 06/21/19 12:54 06/21/19 16:48 06/21/19 20:06 06/22/19 00:30 Bedside Glucose 115 154 183 214 Test 06/22/19 04:43 06/22/19 04:44 06/22/19 05:00 06/22/19 05:07 White Blood Count 18.5 H Red Blood Count 2.29 L Hemoglobin 7.1 L Hematocrit 21.9 L Mean Corpuscular 95.6 Volume Mean Corpuscular 31.0 Hemoglobin Mean Corpuscular 32.4 Hemoglobin Concen t Red Cell 14.9 H Distribution Width Platelet Count 102 L Mean Platelet 11.2 H Volume Immature 1.600 H Granulocytes % Neutrophils % 92.8 H Lymphocytes % 2.3 L Monocytes % 3.2 Eosinophils % 0.0 Basophils % 0.1 Nucleated Red 0.0 Blood Cells % Immature 0.300 H Granulocytes # Neutrophils # 17.1 H Lymphocytes # 0.4 L Monocytes # 0.6 Eosinophils # 0.0 Basophils # 0.0 Nucleated Red 0.0 Blood Cells # Sodium Level 143 143 Potassium Level 3.1 L 3.2 L Chloride Level 104 103 Carbon Dioxide 33 H 34 H Level Anion Gap 6 6 Blood Urea 73 H 74 H Nitrogen Creatinine 0.86 0.73 Est Glomerular Filtrat Rate mL/min Glucose Level 155 151 Calcium Level 8.5 8.4 Phosphorus Level 4.7 Magnesium Level 2.2 Albumin 2.7 L Blood Gas Blood arterial Specimen Source Arterial Blood 06/22/2019 4:44:5 Date Drawn 7 AM Arterial Blood pH 7.445 (Temp corrected) Arterial Blood 44.3 pCO2 (Temp correct) Arterial Blood 65.6 L pO2 (Temp corrected) Arterial Blood 29.8 H HCO3 Arterial Blood 5.1 H Base Excess Arterial Blood 92.3 L Oxygen Saturation James Test ACCEPTAB Arterial Blood Right Radial Gas Puncture Site Arterial 0 Blood Carboxyhemo globin Arterial Blood 0.4 Methemoglobin Blood Gas A-a O2 530.7 H Differential Oxyhemoglobin 91.9 L Percent Blood Gas 37.0 Temperature Blood Gas 26.0 Respiration Rate Blood Gas Actual 30 Respiration Rate Blood Gas VENT - AC Modality FiO2 90.0 Blood Gas Tidal 400.0 Volume Blood Gas Low 10.0 PEEP Setting Blood Gas CT Notified Whom Blood Gas 06/22/2019 5:02:2 Notified Time 1 AM Bedside Glucose 136 Medications Medication Current Medications IV Flush (NS 3 ml) 3 ml PER PROTOCOL IV ; Start 06/10/19 at 12:00 Ondansetron HCl (Zofran Inj) 4 mg Q6H PRN IV NAUSEA/VOMITING; Start 06/10/19 at 12:00 Acetaminophen (Tylenol Tab) 650 mg Q6H PRN PO .PAIN 1-3 OR TEMP Last administered on 06/13/19at 15:52; Admin Dose 650 MG; Start 06/10/19 at 12:00 Acetaminophen/ Hydrocodone Bitart ([place] (5/325)) 1 tab Q6H PRN PO .PAIN 4-6; Start 06/10/19 at 12:00 Morphine Sulfate (morphine) 2 mg Q4H PRN IV .PAIN 7-10 Last administered on 06/15/19at 16:57; Admin Dose 2 MG; Start 06/10/19 at 12:00 Vancomycin HCl (Vanco Iv Per Pharmacy) VANCOMYCIN PER PHARMACY PER PROTOCOL XX ; Start 06/10/19 at 12:30 Amiodarone HCl (Cordarone) 100 mg DAILY GTB Last administered on 06/21/19at 08:31; Admin Dose 100 MG; Start 06/11/19 at 09:00 Atorvastatin Calcium (Lipitor) 20 mg QHS GTB Last administered on 06/21/19at 20:03; Admin Dose 20 MG; Start 06/10/19 at 21:00 Levetiracetam (Keppra Liquid) 500 mg BID GTB Last administered on 06/21/19at 20:03; Admin Dose 500 MG; Start 06/10/19 at 21:00 Olanzapine (Zyprexa) 5 mg DAILY GTB Last administered on 06/21/19at 08:31; Admin Dose 5 MG; Start 06/11/19 at 09:00 Polyethylene Glycol (Miralax) 17 gm DAILY GTB Last administered on 06/15/19at 09:04; Admin Dose 17 GM; Start 06/11/19 at 09:00 Miscellaneous Information 1 ea NOTE XX ; Start 06/10/19 at 14:00 Glucose (Glutose) 15 gm Q15M PRN PO DECREASED GLUCOSE; Start 06/10/19 at 14:00 Glucose (Glutose) 22.5 gm Q15M PRN PO DECREASED GLUCOSE; Start 06/10/19 at 14:00 Dextrose (D50w Syringe) 25 ml Q15M PRN IV DECREASED GLUCOSE; Start 06/10/19 at 14:00 Dextrose (D50w Syringe) 50 ml Q15M PRN IV DECREASED GLUCOSE; Start 06/10/19 at 14:00 Glucagon (Glucagen) 1 mg Q15M PRN IM DECREASED GLUCOSE; Start 06/10/19 at 14:00 Glucose (Glutose) 15 gm Q15M PRN BUCCAL DECREASED GLUCOSE; Start 06/10/19 at 14:00 IV Flush (NS 10 ml) 10 ml [id number] PRN IV Line Patency; Start 06/10/19 at 16:00 Fluvoxamine Maleate (Fluvoxamine Maleate) 25 mg DAILY GTB Last administered on 06/21/19 08:31; Admin Dose 25 MG; Start 06/11/19 at 09:00 Aspirin (Aspirin) 81 mg DAILY PEG Last administered on 06/21/19 08:31; Admin Dose 81 MG; Start 06/11/19 at 09:00 Heparin Sodium (Porcine) (Heparin (5000 Units/1ml)) 5,000 unit Q8 SC Last administered on 06/14/19 06:01; Admin Dose 5,000 UNIT; Start 06/11/19 at 14:00; Status Hold Ipratropium [place] (Atrovent 0.02% (Neb)) 0.5 mg Q4H RESP THERAPY PRN HHN SHORTNESS OF BREATH; Start 06/12/19 at 10:00 Levalbuterol (Xopenex Neb) 1.25 mg Q4H RESP THERAPY PRN HHN shortness of breath; Start 06/12/19 at 10:00 Fentanyl 100 ml @ 2.5 mls/hr TITRATE IV Last administered on 06/21/19 17:07; Admin Dose 5 MLS/HR; Start 06/12/19 at 10:00 Phenylephrine HCl 80 mg/Dextrose 250 ml @ 18.75 mls/ hr TITRATE IV Last administered on 06/16/19 08:39; Admin Dose 15.1 MLS/HR; Start 06/12/19 at 14:00 Levalbuterol (Xopenex Hfa) 4 puff Q6H RESP THERAPY INH Last administered on 06/22/19 01:54; Admin Dose 4 PUFF; Start 06/12/19 at 20:00 Ipratropium [place] (Atrovent Hfa) 4 puff Q6H RESP THERAPY INH Last administered on 06/22/19 01:53; Admin Dose 4 PUFF; Start 06/12/19 at 20:00 Norepinephrine 32 mg/Dextrose 250 ml @ 0.47 mls/hr TITRATE IV Last administered on 06/18/19 23:09; Admin Dose 0.94 MLS/HR; Start 06/13/19 at 08:00 Meropenem/Sodium Chloride 50 ml @ 100 mls/hr Q12 IVPB Last administered on 06/21/19 20:03; Admin Dose 100 MLS/HR; Start 06/13/19 at 14:00 Docusate Sodium (Colace Liquid Cup) 100 mg BID GTB Last administered on 06/18/19 20:21; Admin Dose 100 MG; Start 06/14/19 at 12:30 Insulin Aspart (Novolog Insulin Pen) NOVOLOG *MILD* ALGORI... Q4 SC Last administered on 06/22/19 00:38; Admin Dose 2 UNIT; Start 06/16/19 at 21:00 Insulin Glargine (Lantus) 15 units DAILY@0800 SC Last administered on 06/20/19 16:29; Admin Dose 15 UNITS; Start 06/18/19 at 08:00 Caspofungin 50 mg/ Sodium Chloride 250 ml @ 250 mls/hr Q24H IVPB Last administered on 06/21/19 12:55; Admin Dose 250 MLS/HR; Start 06/18/19 at 13:00 Midazolam HCl 50 ml @ 1 mls/hr TITRATE IV Last administered on 06/18/19 09:43; Admin Dose 2 MLS/HR; Start 06/17/19 at 15:30 Hydrocortisone (Solu-Cortef) 50 mg Q8 IV Last administered on 06/22/19 05:25; Admin Dose 50 MG; Start 06/18/19 at 14:00 Propofol 100 ml @ 1.656 mls/ hr Q12H IV Last administered on 06/22/19 05:32; Admin Dose 4.968 MLS/HR; Start 06/18/19 at 10:00 Lactobacillus Acidophilus/ Rhamnosus (Culturelle) 1 cap TID PO Last administered on 06/21/19 20:03; Admin Dose 1 CAP; Start 06/18/19 at 21:00 Vancomycin/Sodium Chloride 250 ml @ 125 mls/hr Q36H IVPB Last administered on 06/21/19 09:33; Admin Dose 125 MLS/HR; Start 06/19/19 at 21:00 Potassium Chloride (Potassium Chloride Pwd/Soln) 20 meq PER PROTOCOL PRN PO POTASSIUM REPLACEMENT PROTOCOL; Start 06/21/19 at 09:30 Potassium Chloride (Potassium Chloride Pwd/Soln) 30 meq PER PROTOCOL PRN PO POTASSIUM REPLACEMENT PROTOCOL; Start 06/21/19 at 09:30 Potassium Chloride (Potassium Chloride Pwd/Soln) 40 meq PER PROTOCOL PRN PO POTASSIUM REPLACEMENT PROTOCOL Last administered on 06/21/19at 09:43; Admin Dose 40 MEQ; Start 06/21/19 at 09:30 Albumin Human 100 ml @ 100 mls/hr Q8H IV Last administered on 06/22/19at 00:33; Admin Dose 100 MLS/HR; Start 06/21/19 at 09:30; Stop 06/23/19 at 02:29 SHENG DONNELLY MD Jun 22, 2019 08:40
[2019-06-22] MEDS: LEVETIRACETAM (100 MG/ML) 5ML CUP GTB SCH ×2 (08:41→21:37)
[2019-06-22] MEDS: ASPIRIN 81 MG TAB PEG SCH (08:41)
[2019-06-22] MEDS: DOCUSATE SODIUM 10 MG/ML (10ML CUP) GTB SCH ×2 (08:41→21:00)
[2019-06-22] MEDS: OLANZAPINE 5 MG TAB GTB SCH (08:41)
[2019-06-22] MEDS: LACTOBACILLUS RHAMNOSUS CAP PO SCH ×3 (08:42→21:38)
[2019-06-22] MEDS: BALSAM PERU/CASTOR OIL 60 GM TUBE TOP SCH (08:42)
[2019-06-22] MEDS: FLUVOXAMINE MALEATE 25 MG TABLET GTB SCH (08:42)
[2019-06-22] MEDS: AMIODARONE 200 MG TAB GTB SCH (08:42)
[2019-06-22] MEDS: MEROPENEM 1 GM/50ML(PMX) 50 ML IVPB SCH ×2 (08:45→21:38)
[2019-06-22] MEDS: INSULIN GLARGINE [LANTus] (100 UNITS/ML) SYG SC SCH (08:49)
[2019-06-22] MEDS: POLYETHYLENE GLYCOL 17 GM PACKET GTB SCH (08:52)
[2019-06-22] MEDS: POTASSIUM CHLORIDE 20 MEQ POWDER FOR ORAL SOLN PO PRN (09:09)
--- NOTE | 2019-06-22 09:59 | CONS ---
Assessment/Plan Assessment/Plan Assessment/Plan (Daily) DNR code status - Hypokalemia- replaced; fu am BMP 1. acute Hypernatremia due to severe dehydration -resolved 2. acute Hyperkalemia due to FLOYD - Resolved 3. acute kidney injury on CKD III due to ATN from sepsis and Prerenal azotemia 4 . Septic shock due to multifocal PNA and UTI 5. Acute hypoxic respiratory failure due to PNA and Septic shock - Failed BIPAP- Intubated on 06/12/19 , 6. H/O severe dementia 7. H/O HTN 8. H/O HL 9. SNF resident 10. acute on chronic encephalopathy 11 h/o Dysphagia S/p G tube placement 12. Hypocalcemia with Ca 6.7 13. UTI with Urine cx growing ESBL Klebsiella Plan: BUN/Cr 74/0.73, K 3.2- K replaced; fu am BMP UO- 1.3 L /24hrs currently on IV abx meropenem for ESBL Klebsiella UTI, Sputum Cx grew Bridget Albicans and MRSA- pt is on IV cancidas, and IV vancomycin- Renally dose all abx and monitor electrolytes Ventilator Management as per pulmonary DNR code status lasix 40mg IV BID for diuresis Ca 8.4 today, will give calcium gluconate if Ca drops lower than 7.0 Total critical care time spent 40 mins. Will follow up. Patient seen in collaboration with Dr Tomas Foster. Plan of care dw staff.family at bd side-all Qs answered. Consultation Date/Type/Reason Admit Date/Time Jun 10, 2019 at 12:38 Initial Consult Date 06/11/19 Type of Consult NEPHROLOGY Reason for Consultation FLOYD Requesting Provider: MALINI GOMEZ Date/Time of Note DATE: 06/22/19 TIME: 09:58 24 HR Interval Summary Free Text/Dictation Nad afebrile remains intubated; seems comfortable on supplement oxygen K 3.2- will replace BS elevated BUN/Cr - 69/0.79 today Ca 8.4 today UO- 1.3 L /24hrs family at bed side-all Qs answered dw staff Subjective hx not possible: pt non-verbal Constitutional: requiring O2 Exam/Review of Systems Exam Vitals Vital Signs Date Temp Pulse Resp B/P (MAP) Pulse Ox O2 O2 Flow FiO2 Time Delivery Rate 06/22/19 104 24 119/75 86 Mechanical 09:30 (90) Ventilator 06/22/19 97.9 07:30 06/22/19 90 05:30 Intake and Output 06/21/19 06/21/19 06/22/19 1515:00 23:00 07:00 IntakeIntake Total 1163.17 ml 904.24 ml 1023.5 ml OutputOutput Total 270 ml 535 ml 570 ml BalanceBalance 893.17 ml 369.24 ml 453.5 ml Constitutional: well developed Psych: nl mood/affect Eyes: nl lids, nl sclera ENMT: nl external ears & nose Neck: other (ET tube intact) Respiratory: diminished breath sounds Cardiovascular: nl pulses, other Gastrointestinal: soft Musculoskeletal: muscle weakness Extremities: normal pulses Neurological: unresponsive Skin: other (no rash noted) Results Result Diagram: 06/22/19 0443 06/22/19 0444 Results 24hrs Laboratory Tests Test 06/21/19 12:54 06/21/19 16:48 06/21/19 20:06 06/22/19 00:30 Bedside Glucose 115 154 183 214 Test 06/22/19 04:43 06/22/19 04:44 06/22/19 05:00 06/22/19 05:07 White Blood Count 18.5 H Red Blood Count 2.29 L Hemoglobin 7.1 L Hematocrit 21.9 L Mean Corpuscular 95.6 Volume Mean Corpuscular 31.0 Hemoglobin Mean Corpuscular 32.4 Hemoglobin Concen t Red Cell 14.9 H Distribution Width Platelet Count 102 L Mean Platelet 11.2 H Volume Immature 1.600 H Granulocytes % Neutrophils % 92.8 H Lymphocytes % 2.3 L Monocytes % 3.2 Eosinophils % 0.0 Basophils % 0.1 Nucleated Red 0.0 Blood Cells % Immature 0.300 H Granulocytes # Neutrophils # 17.1 H Lymphocytes # 0.4 L Monocytes # 0.6 Eosinophils # 0.0 Basophils # 0.0 Nucleated Red 0.0 Blood Cells # Sodium Level 143 143 Potassium Level 3.1 L 3.2 L Chloride Level 104 103 Carbon Dioxide 33 H 34 H Level Anion Gap 6 6 Blood Urea 73 H 74 H Nitrogen Creatinine 0.86 0.73 Est Glomerular Filtrat Rate mL/min Glucose Level 155 151 Calcium Level 8.5 8.4 Phosphorus Level 4.7 Magnesium Level 2.2 Albumin 2.7 L Blood Gas Blood arterial Specimen Source Arterial Blood 06/22/2019 4:44:5 Date Drawn 7 AM Arterial Blood pH 7.445 (Temp corrected) Arterial Blood 44.3 pCO2 (Temp correct) Arterial Blood 65.6 L pO2 (Temp corrected) Arterial Blood 29.8 H HCO3 Arterial Blood 5.1 H Base Excess Arterial Blood 92.3 L Oxygen Saturation James Test ACCEPTAB Arterial Blood Right Radial Gas Puncture Site Arterial 0 Blood Carboxyhemo globin Arterial Blood 0.4 Methemoglobin Blood Gas A-a O2 530.7 H Differential Oxyhemoglobin 91.9 L Percent Blood Gas 37.0 Temperature Blood Gas 26.0 Respiration Rate Blood Gas Actual 30 Respiration Rate Blood Gas VENT - AC Modality FiO2 90.0 Blood Gas Tidal 400.0 Volume Blood Gas Low 10.0 PEEP Setting Blood Gas [place] Notified Whom Blood Gas 06/22/2019 5:02:2 Notified Time 1 AM Bedside Glucose 136 Test 06/22/19 08:36 Bedside Glucose 190 Medications Medication Current Medications IV Flush (NS 3 ml) 3 ml PER PROTOCOL IV ; Start 06/10/19 at 12:00 Ondansetron HCl (Zofran Inj) 4 mg Q6H PRN IV NAUSEA/VOMITING; Start 06/10/19 at 12:00 Acetaminophen (Tylenol Tab) 650 mg Q6H PRN PO .PAIN 1-3 OR TEMP Last administered on 06/13/19at 15:52; Admin Dose 650 MG; Start 06/10/19 at 12:00 Acetaminophen/ Hydrocodone Bitart ([place] (5/325)) 1 tab Q6H PRN PO .PAIN 4-6; Start 06/10/19 at 12:00 Morphine Sulfate (morphine) 2 mg Q4H PRN IV .PAIN 7-10 Last administered on 06/15/19at 16:57; Admin Dose 2 MG; Start 06/10/19 at 12:00 Vancomycin HCl (Vanco Iv Per Pharmacy) VANCOMYCIN PER PHARMACY PER PROTOCOL XX ; Start 06/10/19 at 12:30 Amiodarone HCl (Cordarone) 100 mg DAILY GTB Last administered on 06/22/19at 08:42; Admin Dose 100 MG; Start 06/11/19 at 09:00 Atorvastatin Calcium (Lipitor) 20 mg QHS GTB Last administered on 06/21/19at 20:03; Admin Dose 20 MG; Start 06/10/19 at 21:00 Levetiracetam (Keppra Liquid) 500 mg BID GTB Last administered on 06/22/19 08:41; Admin Dose 500 MG; Start 06/10/19 at 21:00 Olanzapine (Zyprexa) 5 mg DAILY GTB Last administered on 06/22/19 08:41; Admin Dose 5 MG; Start 06/11/19 at 09:00 Polyethylene Glycol (Miralax) 17 gm DAILY GTB Last administered on 06/15/19at 09:04; Admin Dose 17 GM; Start 06/11/19 at 09:00 Miscellaneous Information 1 ea NOTE XX ; Start 06/10/19 at 14:00 Glucose (Glutose) 15 gm Q15M PRN PO DECREASED GLUCOSE; Start 06/10/19 at 14:00 Glucose (Glutose) 22.5 gm Q15M PRN PO DECREASED GLUCOSE; Start 06/10/19 at 14:00 Dextrose (D50w Syringe) 25 ml Q15M PRN IV DECREASED GLUCOSE; Start 06/10/19 at 14:00 Dextrose (D50w Syringe) 50 ml Q15M PRN IV DECREASED GLUCOSE; Start 06/10/19 at 14:00 Glucagon (Glucagen) 1 mg Q15M PRN IM DECREASED GLUCOSE; Start 06/10/19 at 14:00 Glucose (Glutose) 15 gm Q15M PRN BUCCAL DECREASED GLUCOSE; Start 06/10/19 at 14:00 IV Flush (NS 10 ml) 10 ml [id number] PRN IV Line Patency; Start 06/10/19 at 16:00 Fluvoxamine Maleate (Fluvoxamine Maleate) 25 mg DAILY GTB Last administered on 06/22/19at 08:42; Admin Dose 25 MG; Start 06/11/19 at 09:00 Aspirin (Aspirin) 81 mg DAILY PEG Last administered on 06/22/19 08:41; Admin Dose 81 MG; Start 06/11/19 at 09:00 Heparin Sodium (Porcine) (Heparin (5000 Units/1ml)) 5,000 unit Q8 SC Last administered on 06/14/19 06:01; Admin Dose 5,000 UNIT; Start 06/11/19 at 14:00; Status Hold Ipratropium [place] (Atrovent 0.02% (Neb)) 0.5 mg Q4H RESP THERAPY PRN HHN SHORTNESS OF BREATH; Start 06/12/19 at 10:00 Levalbuterol (Xopenex Neb) 1.25 mg Q4H RESP THERAPY PRN HHN shortness of breath; Start 06/12/19 at 10:00 Fentanyl 100 ml @ 2.5 mls/hr TITRATE IV Last administered on 06/21/19 17:07; Admin Dose 5 MLS/HR; Start 06/12/19 at 10:00 Phenylephrine HCl 80 mg/Dextrose 250 ml @ 18.75 mls/ hr TITRATE IV Last administered on 06/16/19 08:39; Admin Dose 15.1 MLS/HR; Start 06/12/19 at 14:00 Levalbuterol (Xopenex Hfa) 4 puff Q6H RESP THERAPY INH Last administered on 06/22/19 08:38; Admin Dose 4 PUFF; Start 06/12/19 at 20:00 Ipratropium [place] (Atrovent Hfa) 4 puff Q6H RESP THERAPY INH Last administered on 06/22/19 08:36; Admin Dose 4 PUFF; Start 06/12/19 at 20:00 Norepinephrine 32 mg/Dextrose 250 ml @ 0.47 mls/hr TITRATE IV Last administered on 06/18/19 23:09; Admin Dose 0.94 MLS/HR; Start 06/13/19 at 08:00 Meropenem/Sodium Chloride 50 ml @ 100 mls/hr Q12 IVPB Last administered on 06/22/19 08:45; Admin Dose 100 MLS/HR; Start 06/13/19 at 14:00 Docusate Sodium (Colace Liquid Cup) 100 mg BID GTB Last administered on 06/18/19 20:21; Admin Dose 100 MG; Start 06/14/19 at 12:30 Insulin Aspart (Novolog Insulin Pen) NOVOLOG *MILD* ALGORI... Q4 SC Last administered on 06/22/19 08:44; Admin Dose 2 UNIT; Start 06/16/19 at 21:00 Insulin Glargine (Lantus) 15 units DAILY@0800 SC Last administered on 06/22/19 08:49; Admin Dose 15 UNITS; Start 06/18/19 at 08:00 Caspofungin 50 mg/ Sodium Chloride 250 ml @ 250 mls/hr Q24H IVPB Last administered on 06/21/19at 12:55; Admin Dose 250 MLS/HR; Start 06/18/19 at 13:00 Midazolam HCl 50 ml @ 1 mls/hr TITRATE IV Last administered on 06/18/19 09:43; Admin Dose 2 MLS/HR; Start 06/17/19 at 15:30 Hydrocortisone (Solu-Cortef) 50 mg Q8 IV Last administered on 06/22/19at 05:25; Admin Dose 50 MG; Start 06/18/19 at 14:00 Propofol 100 ml @ 1.656 mls/ hr Q12H IV Last administered on 06/22/19 05:32; Admin Dose 4.968 MLS/HR; Start 06/18/19 at 10:00 Lactobacillus Acidophilus/ Rhamnosus (Culturelle) 1 cap TID PO Last administered on 06/22/19 08:42; Admin Dose 1 CAP; Start 06/18/19 at 21:00 Vancomycin/Sodium Chloride 250 ml @ 125 mls/hr Q36H IVPB Last administered on 06/21/19 09:33; Admin Dose 125 MLS/HR; Start 06/19/19 at 21:00 Potassium Chloride (Potassium Chloride Pwd/Soln) 20 meq PER PROTOCOL PRN PO POTASSIUM REPLACEMENT PROTOCOL; Start 06/21/19 at 09:30 Potassium Chloride (Potassium Chloride Pwd/Soln) 30 meq PER PROTOCOL PRN PO POTASSIUM REPLACEMENT PROTOCOL; Start 06/21/19 at 09:30 Potassium Chloride (Potassium Chloride Pwd/Soln) 40 meq PER PROTOCOL PRN PO POTASSIUM REPLACEMENT PROTOCOL Last administered on 06/22/19at 09:09; Admin Dose 40 MEQ; Start 06/21/19 at 09:30 Albumin Human 100 ml @ 100 mls/hr Q8H IV Last administered on 06/22/19 08:50; Admin Dose 100 MLS/HR; Start 06/21/19 at 09:30; Stop 06/23/19 at 02:29 Bumetanide 12 mg/ Dextrose/Water 120 ml @ 10 mls/hr Q12H ONCE IV ; Start 06/22/19 at 10:00; Stop 06/22/19 at 21:59 Bumetanide (Bumex) 1 mg BID DIURETICS IV ; Start 06/23/19 at 09:00 DEEPIKA SERNA Jun 22, 2019 09:59
[2019-06-22] MEDS ORDERED: BUMETANIDE 12 MG in DEXTROSE 5% 72 ML IV ONE (10:00)
[2019-06-22] MEDS: FENTAnyl (DRIP) 1000 mcg/100mL 100 ML IV SCH ×2 (11:02→20:39)
--- NOTE | 2019-06-22 12:02 | CONS ---
Consult Date/Type/Reason Admit Date/Time Jun 10, 2019 at 12:38 Initial Consult Date 06/11/19 Type of Consultation: Pulm/CCM Requesting Provider: MALINI GOMEZ Date/Time of Note DATE: 06/22/19 TIME: 12:00 Subjective Back on 100% FiO2 on the vent. Sedated on propofol and fentanyl gtt. Objective Vitals Vital Signs Date Temp Pulse Resp B/P (MAP) Pulse Ox O2 O2 Flow FiO2 Time Delivery Rate 06/22/19 104 24 119/75 86 Mechanical 09:30 (90) Ventilator 06/22/19 90 08:00 06/22/19 97.9 07:30 Intake and Output 06/21/19 06/21/19 06/22/19 1515:00 23:00 07:00 IntakeIntake Total 1163.17 ml 904.24 ml 1083.46 ml OutputOutput Total 270 ml 535 ml 645 ml BalanceBalance 893.17 ml 369.24 ml 438.46 ml Exam HEENT: Neck supple; no JVD; no LAD; + ET tube CVS: RRR, S1 and S2 CHEST: Coarse BS B/L ABD: Soft, NT, + BS EXT: No c/c; + edema Results/Medications Result Diagram: 06/22/19 1118 06/22/19 0444 Results 24 hrs Laboratory Tests Test 06/21/19 12:54 06/21/19 16:48 06/21/19 20:06 06/22/19 00:30 Bedside Glucose 115 154 183 214 Test 06/22/19 04:43 06/22/19 04:44 06/22/19 05:00 06/22/19 05:07 White Blood Count 18.5 H Red Blood Count 2.29 L Hemoglobin 7.1 L Hematocrit 21.9 L Mean Corpuscular 95.6 Volume Mean Corpuscular 31.0 Hemoglobin Mean Corpuscular 32.4 Hemoglobin Concen t Red Cell 14.9 H Distribution Width Platelet Count 102 L Mean Platelet 11.2 H Volume Immature 1.600 H Granulocytes % Neutrophils % 92.8 H Lymphocytes % 2.3 L Monocytes % 3.2 Eosinophils % 0.0 Basophils % 0.1 Nucleated Red 0.0 Blood Cells % Immature 0.300 H Granulocytes # Neutrophils # 17.1 H Lymphocytes # 0.4 L Monocytes # 0.6 Eosinophils # 0.0 Basophils # 0.0 Nucleated Red 0.0 Blood Cells # Sodium Level 143 143 Potassium Level 3.1 L 3.2 L Chloride Level 104 103 Carbon Dioxide 33 H 34 H Level Anion Gap 6 6 Blood Urea 73 H 74 H Nitrogen Creatinine 0.86 0.73 Est Glomerular Filtrat Rate mL/min Glucose Level 155 151 Calcium Level 8.5 8.4 Phosphorus Level 4.7 Magnesium Level 2.2 Albumin 2.7 L Blood Gas Blood arterial Specimen Source Arterial Blood 06/22/2019 4:44:5 Date Drawn 7 AM Arterial Blood pH 7.445 (Temp corrected) Arterial Blood 44.3 pCO2 (Temp correct) Arterial Blood 65.6 L pO2 (Temp corrected) Arterial Blood 29.8 H HCO3 Arterial Blood 5.1 H Base Excess Arterial Blood 92.3 L Oxygen Saturation James Test ACCEPTAB Arterial Blood Right Radial Gas Puncture Site Arterial 0 Blood Carboxyhemo globin Arterial Blood 0.4 Methemoglobin Blood Gas A-a O2 530.7 H Differential Oxyhemoglobin 91.9 L Percent Blood Gas 37.0 Temperature Blood Gas 26.0 Respiration Rate Blood Gas Actual 30 Respiration Rate Blood Gas VENT - AC Modality FiO2 90.0 Blood Gas Tidal 400.0 Volume Blood Gas Low 10.0 PEEP Setting Blood Gas [place] Notified Whom Blood Gas 06/22/2019 5:02:2 Notified Time 1 AM Bedside Glucose 136 Test 06/22/19 08:36 06/22/19 11:18 Bedside Glucose 190 Hemoglobin 7.3 L Hematocrit 23.0 L Home Meds Reported Medications Pantoprazole* (Protonix*) 40 Mg Tablet.dr, 40 MG PO DAILY, TAB 09/03/14 Donepezil* (Aricept*) 5 Mg Tablet, 5 MG PO DAILY, TAB 09/03/14 Atorvastatin Calcium* (Atorvastatin Calcium*) 20 Mg Tablet, 20 MG PO HS, TAB 09/03/14 Saxagliptin Hcl/Metformin Hcl (KOMBIGLYZE XR 5-500 MG TABLET) 1 Each Tbmp.24hr, 1 EACH PO DAILY 09/03/14 Medications Current Medications IV Flush (NS 3 ml) 3 ml PER PROTOCOL IV ; Start 06/10/19 at 12:00 Ondansetron HCl (Zofran Inj) 4 mg Q6H PRN IV NAUSEA/VOMITING; Start 06/10/19 at 12:00 Acetaminophen (Tylenol Tab) 650 mg Q6H PRN PO .PAIN 1-3 OR TEMP Last administered on 06/13/19at 15:52; Admin Dose 650 MG; Start 06/10/19 at 12:00 Acetaminophen/ Hydrocodone Bitart ([place] (5/325)) 1 tab Q6H PRN PO .PAIN 4-6; Start 06/10/19 at 12:00 Morphine Sulfate (morphine) 2 mg Q4H PRN IV .PAIN 7-10 Last administered on 06/15/19at 16:57; Admin Dose 2 MG; Start 06/10/19 at 12:00 Vancomycin HCl (Vanco Iv Per Pharmacy) VANCOMYCIN PER PHARMACY PER PROTOCOL XX ; Start 06/10/19 at 12:30 Amiodarone HCl (Cordarone) 100 mg DAILY GTB Last administered on 06/22/19at 08:42; Admin Dose 100 MG; Start 06/11/19 at 09:00 Atorvastatin Calcium (Lipitor) 20 mg QHS GTB Last administered on 06/21/19at 20:03; Admin Dose 20 MG; Start 06/10/19 at 21:00 Levetiracetam (Keppra Liquid) 500 mg BID GTB Last administered on 06/22/19at 08:41; Admin Dose 500 MG; Start 06/10/19 at 21:00 Olanzapine (Zyprexa) 5 mg DAILY GTB Last administered on 06/22/19at 08:41; Admin Dose 5 MG; Start 06/11/19 at 09:00 Polyethylene Glycol (Miralax) 17 gm DAILY GTB Last administered on 06/15/19at 09:04; Admin Dose 17 GM; Start 06/11/19 at 09:00 Miscellaneous Information 1 ea NOTE XX ; Start 06/10/19 at 14:00 Glucose (Glutose) 15 gm Q15M PRN PO DECREASED GLUCOSE; Start 06/10/19 at 14:00 Glucose (Glutose) 22.5 gm Q15M PRN PO DECREASED GLUCOSE; Start 06/10/19 at 14:00 Dextrose (D50w Syringe) 25 ml Q15M PRN IV DECREASED GLUCOSE; Start 06/10/19 at 14:00 Dextrose (D50w Syringe) 50 ml Q15M PRN IV DECREASED GLUCOSE; Start 06/10/19 at 14:00 Glucagon (Glucagen) 1 mg Q15M PRN IM DECREASED GLUCOSE; Start 06/10/19 at 14:00 Glucose (Glutose) 15 gm Q15M PRN BUCCAL DECREASED GLUCOSE; Start 06/10/19 at 1 4:00 IV Flush (NS 10 ml) 10 ml [id number] PRN IV Line Patency; Start 06/10/19 at 16:00 Fluvoxamine Maleate (Fluvoxamine Maleate) 25 mg DAILY GTB Last administered on 06/22/19 08:42; Admin Dose 25 MG; Start 06/11/19 at 09:00 Aspirin (Aspirin) 81 mg DAILY PEG Last administered on 06/22/19 08:41; Admin Dose 81 MG; Start 06/11/19 at 09:00 Heparin Sodium (Porcine) (Heparin (5000 Units/1ml)) 5,000 unit Q8 SC Last administered on 06/14/19 06:01; Admin Dose 5,000 UNIT; Start 06/11/19 at 14:00; Status Hold Ipratropium [place] (Atrovent 0.02% (Neb)) 0.5 mg Q4H RESP THERAPY PRN HHN SHORTNESS OF BREATH; Start 06/12/19 at 10:00 Levalbuterol (Xopenex Neb) 1.25 mg Q4H RESP THERAPY PRN HHN shortness of breath; Start 06/12/19 at 10:00 Fentanyl 100 ml @ 2.5 mls/hr TITRATE IV Last administered on 06/22/19 11:02; Admin Dose 10 MLS/HR; Start 06/12/19 at 10:00 Phenylephrine HCl 80 mg/Dextrose 250 ml @ 18.75 mls/ hr TITRATE IV Last administered on 06/16/19 08:39; Admin Dose 15.1 MLS/HR; Start 06/12/19 at 14:00 Levalbuterol (Xopenex Hfa) 4 puff Q6H RESP THERAPY INH Last administered on 06/22/19 08:38; Admin Dose 4 PUFF; Start 06/12/19 at 20:00 Ipratropium [place] (Atrovent Hfa) 4 puff Q6H RESP THERAPY INH Last administered on 06/22/19 08:36; Admin Dose 4 PUFF; Start 06/12/19 at 20:00 Norepinephrine 32 mg/Dextrose 250 ml @ 0.47 mls/hr TITRATE IV Last administered on 06/18/19 23:09; Admin Dose 0.94 MLS/HR; Start 06/13/19 at 08:00 Meropenem/Sodium Chloride 50 ml @ 100 mls/hr Q12 IVPB Last administered on 06/22/19 08:45; Admin Dose 100 MLS/HR; Start 06/13/19 at 14:00 Docusate Sodium (Colace Liquid Cup) 100 mg BID GTB Last administered on 06/18/19 20:21; Admin Dose 100 MG; Start 06/14/19 at 12:30 Insulin Aspart (Novolog Insulin Pen) NOVOLOG *MILD* ALGORI... Q4 SC Last administered on 06/22/19 08:44; Admin Dose 2 UNIT; Start 06/16/19 at 21:00 Insulin Glargine (Lantus) 15 units DAILY@0800 SC Last administered on 06/22/19 08:49; Admin Dose 15 UNITS; Start 06/18/19 at 08:00 Caspofungin 50 mg/ Sodium Chloride 250 ml @ 250 mls/hr Q24H IVPB Last administered on 06/21/19 12:55; Admin Dose 250 MLS/HR; Start 06/18/19 at 13:00 Midazolam HCl 50 ml @ 1 mls/hr TITRATE IV Last administered on 06/18/19 09:43; Admin Dose 2 MLS/HR; Start 06/17/19 at 15:30 Hydrocortisone (Solu-Cortef) 50 mg Q8 IV Last administered on 06/22/19 05:25; Admin Dose 50 MG; Start 06/18/19 at 14:00 Propofol 100 ml @ 1.656 mls/ hr Q12H IV Last administered on 06/22/19 05:32; Admin Dose 4.968 MLS/HR; Start 06/18/19 at 10:00 Lactobacillus Acidophilus/ Rhamnosus (Culturelle) 1 cap TID PO Last administered on 06/22/19 08:42; Admin Dose 1 CAP; Start 06/18/19 at 21:00 Vancomycin/Sodium Chloride 250 ml @ 125 mls/hr Q36H IVPB Last administered on 06/21/19 09:33; Admin Dose 125 MLS/HR; Start 06/19/19 at 21:00 Potassium Chloride (Potassium Chloride Pwd/Soln) 20 meq PER PROTOCOL PRN PO POTASSIUM REPLACEMENT PROTOCOL; Start 06/21/19 at 09:30 Potassium Chloride (Potassium Chloride Pwd/Soln) 30 meq PER PROTOCOL PRN PO POTASSIUM REPLACEMENT PROTOCOL; Start 06/21/19 at 09:30 Potassium Chloride (Potassium Chloride Pwd/Soln) 40 meq PER PROTOCOL PRN PO POTASSIUM REPLACEMENT PROTOCOL Last administered on 06/22/19at 09:09; Admin Dose 40 MEQ; Start 06/21/19 at 09:30 Albumin Human 100 ml @ 100 mls/hr Q8H IV Last administered on 06/22/19at 08:50; Admin Dose 100 MLS/HR; Start 06/21/19 at 09:30; Stop 06/23/19 at 02:29 Bumetanide 12 mg/ Dextrose/Water 120 ml @ 10 mls/hr Q12H ONCE IV Last administered on 06/22/19at 10:19; Admin Dose 10 MLS/HR; Start 06/22/19 at 10:00; Stop 06/22/19 at 21:59 Bumetanide (Bumex) 1 mg BID DIURETICS IV ; Start 06/23/19 at 09:00 Assessment/Plan Assessment/Plan (Daily) IMP: 1. Acute hypoxemic and hypercapnic respiratory failure 2. Multilobar pneumonia--> ARDS 3. Septic Shock--improved 4. Encephalopathy toxic metabolic 5. Thrombocytopenia 6. Dysphagia RECS: 1. Vent--> increase PEEP 16 cm H20; titrate down FiO2 to SpO2 > 88% 2. Allow for increase PaCO2 3. Continue stress dose CS 4. Abx per ID 5. TF/Free H20 40 min cc time GABY BERRY MD Jun 22, 2019 12:02
[2019-06-22] MEDS: CASPOFUNGIN 50 MG in SOD CHLORIDE 0.9% 250 ML IVPB SCH (12:30)
--- NOTE | 2019-06-22 18:37 | PN ---
DATE: 06/22/2019 SUBJECTIVE: The patient decompensated overnight, now on high PEEP, tachypneic on the vent, tachycard ic. WBC today 18.5, H and H 7.3 and 23, platelets 102, neutrophils 92.8, BUN 74, creatinine 0.73. Stool for C. diff came back negative. INDWELLINGS: Endotracheal tube, PEG, Dial, PICC line. DIAGNOSTICS: Chest x-ray this morning revealed increased opacification of the left lung, representin g edema, ARDS versus multifocal pneumonia. ANTIMICROBIALS: The patient is on: 1. Meropenem. 2. Vancomycin. 3. Cancidas. 4. She is also on Solu-Cortef. MICROBIOLOGY: Urine culture on admission grew Klebsiella ESBL. Sputum culture grew MRSA and Bridget albicans. PHYSICAL EXAMINATION: GENERAL: This is a chronically ill-appearing, elderly woman who is tachypneic on vent. The pa tient is in mild distress. She is being suctioned by RT. HEENT: Head atraumatic, normocephalic. NECK: Supple. CHEST: Rise symmetrical. Breath sounds with bilateral rhonchi. HEART: S1, S2. Tachycardic, irregular. ABDOMEN: Distended, bowel tones hypoactive. EXTREMITIES: Cyanotic with dependent edema. ASSESSMENT: 1. Severe sepsis status post shock. 2. Acute respiratory failure with multilobar pneumonia, now developing acute respiratory distress sy ndrome. 3. Urinary tract infection. 4. Acute possibly on chronic encephalopathy. 5. Non-ST elevation myocardial infarction. 6. Atrial fibrillation. PLAN: The patient is doing poorly. Continue present care, antibiotics and vent management per Pultricia alejo. Dictated By: JACKIE CORTÉS CREEL OPERATOR for LARISSA SOTO/JACQUELINE Conf#: [id number] DID#: [id number]
[2019-06-22] MEDS: ATORVASTATIN 20 MG TAB GTB SCH (21:37)
[2019-06-23] VITALS (56 sets, daily range): BP systolic 97–143; BP diastolic 59–84; PULSE 63–108; RESP 14–32
[2019-06-23] MEDS: LEVALBUTEROL (HFA) 15 GM INHALER INH SCH ×4 (01:06→19:35)
[2019-06-23] MEDS: IPRATROPIUM (HFA) 12.9 GM INHALER INH SCH ×4 (01:06→19:35)
[2019-06-23] MEDS: INSULIN ASPART [NOVOLOG] 3 ML PEN SC SCH ×6 (01:06→21:39)
[2019-06-23] MEDS: ALBUMIN HUMAN 25% 100 ML IV SCH (01:27)
[2019-06-23] MEDS: PROPOFOL 100 ML IV SCH ×2 (03:27→16:37)
[2019-06-23] MEDS: HYDROCORTISONE 100 MG INJ IV SCH ×3 (05:34→21:30)
[2019-06-23] MEDS: FENTAnyl (DRIP) 1000 mcg/100mL 100 ML IV SCH ×2 (06:30→16:39)
[2019-06-23] MEDS: MEROPENEM 1 GM/50ML(PMX) 50 ML IVPB SCH ×2 (08:36→21:29)
[2019-06-23] MEDS: POLYETHYLENE GLYCOL 17 GM PACKET GTB SCH (08:36)
[2019-06-23] MEDS: OLANZAPINE 5 MG TAB GTB SCH (08:36)
[2019-06-23] MEDS: LACTOBACILLUS RHAMNOSUS CAP PO SCH ×3 (08:36→21:29)
[2019-06-23] MEDS: FLUVOXAMINE MALEATE 25 MG TABLET GTB SCH (08:36)
[2019-06-23] MEDS: LEVETIRACETAM (100 MG/ML) 5ML CUP GTB SCH ×2 (08:37→21:29)
[2019-06-23] MEDS: DOCUSATE SODIUM 10 MG/ML (10ML CUP) GTB SCH ×2 (08:37→21:00)
[2019-06-23] MEDS: ASPIRIN 81 MG TAB PEG SCH (08:37)
[2019-06-23] MEDS: AMIODARONE 200 MG TAB GTB SCH (08:37)
[2019-06-23] MEDS: BALSAM PERU/CASTOR OIL 60 GM TUBE TOP SCH (08:39)
--- NOTE | 2019-06-23 09:03 | PN ---
Date/Time of Note Date/Time of Note DATE: 06/23/19 TIME: 09:00 Objective Vitals Vital Signs Date Temp Pulse Resp B/P (MAP) Pulse Ox O2 O2 Flow FiO2 Time Delivery Rate 06/23/19 72 26 100 80 07:42 06/23/19 139/72 Mechanical 06:30 (94) Ventilator 06/23/19 98.0 04:00 Intake and Output 06/22/19 06/22/19 06/23/19 1515:00 23:00 07:00 IntakeIntake Total 1104.724 ml 782.744 ml 719.424 ml OutputOutput Total 435 ml 540 ml 725 ml BalanceBalance 669.724 ml 242.744 ml -5.576 ml Results Result Diagram: 06/23/19 0400 06/23/19 0400 Medications Medications Current Medications IV Flush (NS 3 ml) 3 ml PER PROTOCOL IV ; Start 06/10/19 at 12:00 Ondansetron HCl (Zofran Inj) 4 mg Q6H PRN IV NAUSEA/VOMITING; Start 06/10/19 at 12:00 Acetaminophen (Tylenol Tab) 650 mg Q6H PRN PO .PAIN 1-3 OR TEMP Last admi nistered on 06/13/19at 15:52; Admin Dose 650 MG; Start 06/10/19 at 12:00 Acetaminophen/ Hydrocodone Bitart ([place] (5/325)) 1 tab Q6H PRN PO .PAIN 4-6; Start 06/10/19 at 12:00 Morphine Sulfate (morphine) 2 mg Q4H PRN IV .PAIN 7-10 Last administered on 06/15/19at 16:57; Admin Dose 2 MG; Start 06/10/19 at 12:00 Vancomycin HCl (Vanco Iv Per Pharmacy) VANCOMYCIN PER PHARMACY PER PROTOCOL XX ; Start 06/10/19 at 12:30 Amiodarone HCl (Cordarone) 100 mg DAILY GTB Last administered on 06/23/19at 08:37; Admin Dose 100 MG; Start 06/11/19 at 09:00 Atorvastatin Calcium (Lipitor) 20 mg QHS GTB Last administered on 06/22/19at 21:37; Admin Dose 20 MG; Start 06/10/19 at 21:00 Levetiracetam (Keppra Liquid) 500 mg BID GTB Last administered on 06/23/19 08:37; Admin Dose 500 MG; Start 06/10/19 at 21:00 Olanzapine (Zyprexa) 5 mg DAILY GTB Last administered on 06/23/19 08:36; Admin Dose 5 MG; Start 06/11/19 at 09:00 Polyethylene Glycol (Miralax) 17 gm DAILY GTB Last administered on 06/23/19 08:36; Admin Dose 17 GM; Start 06/11/19 at 09:00 Miscellaneous Information 1 ea NOTE XX ; Start 06/10/19 at 14:00 Glucose (Glutose) 15 gm Q15M PRN PO DECREASED GLUCOSE; Start 06/10/19 at 14:00 Glucose (Glutose) 22.5 gm Q15M PRN PO DECREASED GLUCOSE; Start 06/10/19 at 14:00 Dextrose (D50w Syringe) 25 ml Q15M PRN IV DECREASED GLUCOSE; Start 06/10/19 at 14:00 Dextrose (D50w Syringe) 50 ml Q15M PRN IV DECREASED GLUCOSE; Start 06/10/19 at 14:00 Glucagon (Glucagen) 1 mg Q15M PRN IM DECREASED GLUCOSE; Start 06/10/19 at 14:00 Glucose (Glutose) 15 gm Q15M PRN BUCCAL DECREASED GLUCOSE; Start 06/10/19 at 14:00 IV Flush (NS 10 ml) 10 ml [id number] PRN IV Line Patency; Start 06/10/19 at 16:00 Fluvoxamine Maleate (Fluvoxamine Maleate) 25 mg DAILY GTB Last administered on 06/23/19at 08:36; Admin Dose 25 MG; Start 06/11/19 at 09:00 Aspirin (Aspirin) 81 mg DAILY PEG Last administered on 06/23/19 08:37; Admin Dose 81 MG; Start 06/11/19 at 09:00 Heparin Sodium (Porcine) (Heparin (5000 Units/1ml)) 5,000 unit Q8 SC Last administered on 06/14/19at 06:01; Admin Dose 5,000 UNIT; Start 06/11/19 at 14:00; Status Hold Ipratropium [place] (Atrovent 0.02% (Neb)) 0.5 mg Q4H RESP THERAPY PRN HHN SHORTNESS OF BREATH; Start 06/12/19 at 10:00 Levalbuterol (Xopenex Neb) 1.25 mg Q4H RESP THERAPY PRN HHN shortness of breath; Start 06/12/19 at 10:00 Fentanyl 100 ml @ 2.5 mls/hr TITRATE IV Last administered on 06/23/19 06:30; Admin Dose 10 MLS/HR; Start 06/12/19 at 10:00 Phenylephrine HCl 80 mg/Dextrose 250 ml @ 18.75 mls/ hr TITRATE IV Last administered on 06/16/19 08:39; Admin Dose 15.1 MLS/HR; Start 06/12/19 at 14:00 Levalbuterol (Xopenex Hfa) 4 puff Q6H RESP THERAPY INH Last administered on 06/23/19 07:45; Admin Dose 4 PUFF; Start 06/12/19 at 20:00 Ipratropium [place] (Atrovent Hfa) 4 puff Q6H RESP THERAPY INH Last administered on 06/23/19 07:45; Admin Dose 4 PUFF; Start 06/12/19 at 20:00 Norepinephrine 32 mg/Dextrose 250 ml @ 0.47 mls/hr TITRATE IV Last administered on 06/18/19 23:09; Admin Dose 0.94 MLS/HR; Start 06/13/19 at 08:00 Meropenem/Sodium Chloride 50 ml @ 100 mls/hr Q12 IVPB Last administered on 06/23/19 08:36; Admin Dose 100 MLS/HR; Start 06/13/19 at 14:00 Docusate Sodium (Colace Liquid Cup) 100 mg BID GTB Last administered on 06/23/19 08:37; Admin Dose 100 MG; Start 06/14/19 at 12:30 Insulin Aspart (Novolog Insulin Pen) NOVOLOG *MILD* ALGORI... Q4 SC Last admi nistered on 06/23/19 08:41; Admin Dose 1 UNIT; Start 06/16/19 at 21:00 Insulin Glargine (Lantus) 15 units DAILY@0800 SC Last administered on 06/22/19 08:49; Admin Dose 15 UNITS; Start 06/18/19 at 08:00 Caspofungin 50 mg/ Sodium Chloride 250 ml @ 250 mls/hr Q24H IVPB Last administered on 06/22/19at 12:30; Admin Dose 250 MLS/HR; Start 06/18/19 at 13:00 Midazolam HCl 50 ml @ 1 mls/hr TITRATE IV Last administered on 06/18/19at 09:43; Admin Dose 2 MLS/HR; Start 06/17/19 at 15:30 Hydrocortisone (Solu-Cortef) 50 mg Q8 IV Last administered on 06/23/19at 05:34; Admin Dose 50 MG; Start 06/18/19 at 14:00 Propofol 100 ml @ 1.656 mls/ hr Q12H IV Last administered on 06/23/19at 03:27; Admin Dose 9.936 MLS/HR; Start 06/18/19 at 10:00 Lactobacillus Acidophilus/ Rhamnosus (Culturelle) 1 cap TID PO Last administered on 06/23/19at 08:36; Admin Dose 1 CAP; Start 06/18/19 at 21:00 Potassium Chloride (Potassium Chloride Pwd/Soln) 20 meq PER PROTOCOL PRN PO POTASSIUM REPLACEMENT PROTOCOL; Start 06/21/19 at 09:30 Potassium Chloride (Potassium Chloride Pwd/Soln) 30 meq PER PROTOCOL PRN PO POTASSIUM REPLACEMENT PROTOCOL; Start 06/21/19 at 09:30 Potassium Chloride (Potassium Chloride Pwd/Soln) 40 meq PER PROTOCOL PRN PO POTASSIUM REPLACEMENT PROTOCOL Last administered on 06/22/19at 09:09; Admin Dose 40 MEQ; Start 06/21/19 at 09:30 Bumetanide (Bumex) 1 mg BID DIURETICS IV ; Start 06/23/19 at 09:00 Vancomycin/Sodium Chloride 250 ml @ 125 mls/hr Q48H IVPB ; Start 06/23/19 at 09:00 Potassium Chloride 100 ml @ 50 mls/hr Q2H IVPB ; Start 06/23/19 at 09:00; Stop 06/23/19 at 12:59 VTE Prophylaxis Risk score (from Nsg)>0 risk: 10 SCD applied (from Nsg): No SCD contraindication: other Lines/Catheters IV Catheter Type: Dorsey in Place: Yes Cont'd dorsey catheter reason: terminal illness/intractable pain Assessment/Plan Hospital Course Subjective Patient still intubated, sedated Objective Physical exam General: Patient is intubated, sedated Mentation: Patient is intubated and sedated Head: Normocephalic atraumatic Eyes: EOMI, pupils reactive to light Neck: Supple, nontender, midline Respiratory: Coarse to auscultation bilaterally Cardiovascular: Regular rate, no obvious murmurs Gastrointestinal: non-tender to palpation, bowel sounds heard. Neurological: Moves all extremities spontaneously to noxious stimuli Skin: No new skin lesions, PEG tube site present Assessment/Plan 1. Acute hypoxic respiratory failure, ARDS secondary to sepsis - CXR noted with increased congestion - cont bumex per nephro - Discussed with son done as family needs to decide on trach vs comfort care. Will discuss with siblings - Pulm on board and appreciate recommendations - wean down vent settings as able. Still on high fio2 req - Continue IV antibiotics per ID recommendations. 2. Multifocal pneumonia - Sputum cx noted with MRSA and Bridget - ID on board and appreciate recommendations 3. Hypokalemia - replace 4. Abdominal distension - KUB noted and US with small ascites - most likely secondary to anasarca. 5. Atrial fibrillation with RVR- resolved - back in sinus rhythm - Cardiology consultation appreciated 6. Non-ST elevated NC - Cardiology consultation appreciated and will continue current medications - Very mild elevation - continue aspirin and statin 7. Thrombocytopenia-improving - Very likely due to septic shock - Fibrinogen is elevated, unlikely DIC anemia -likely chronic diease as well as multiple lab draws -replete as needed. 8. Chronic dysphasia - Patient has PEG tube 9. Diabetes mellitus - continue on Lantus and ISS - sugars controlled 10. Chronic encephalopathy - CT of the brain initially showed alarming findings however there appears to be a mixup with patient's name, patient's actual name is Trey Roberts, [id number]. Neurosurgeon was initially consulted for possible brain bleed and other findings however when comparing to the patient's actual chart in 2013, neurosurgeon reviewed the CT and MRI and found a similar findings with no acute emergent change. - Monitor closely, patient appears to be at baseline 11. Dyslipidemia - Continue home meds 12. Mood disorder - Continue home meds 13. Chronic kidney disease - stable - nephrology consultation appreciated 14. Failure to thrive - now DNR per families request 15. Anasarca - cont bumex per nephro recs 16. Disposition - Continue monitoring in ICU while on vent support. family to decide trach vs comfort care. >35 minutes of critical care spent with patient at bedside. MALINI GOMEZ Jun 23, 2019 09:03
[2019-06-23] MEDS: BUMETANIDE 1 MG INJ IV SCH ×2 (09:14→17:57)
[2019-06-23] MEDS: VANCOMYCIN 750 MG (PMX) 250 ML IVPB SCH (09:14)
[2019-06-23] MEDS: INSULIN GLARGINE [LANTus] (100 UNITS/ML) SYG SC SCH (09:19)
--- NOTE | 2019-06-23 09:22 | CONS ---
Assessment/Plan Assessment/Plan Assessment/Plan (Daily) Ventilator setting; AC of 24, tidal volume 400, PEEP of 10, 70% FiO2. Patient is currently on propofol 30 mics per kilogram per minute. Fentanyl 100 mics per hour. Assessment and recommendations; 1. Patient admitted for severe bilateral pneumonia with ARDS with persistent severe hypoxemia. 2. History of dementia. 3. History of seizure disorder. 4. Severe anemia. 5. Thrombocytopenia. 6. History of diabetes. Continue current supportive care. Awaiting patient's family to arrive from out of state to decide about further medical care. Prognosis appears extremely poor. Patient to be transfused packed RBCs. Consultation Date/Type/Reason Admit Date/Time Jun 10, 2019 at 12:38 Initial Consult Date 06/11/19 Type of Consult Pulmonary/critical care Patient is an 84-year-old [place] lady who was transferred to to the hospital from alf with hypoxemia. Upon evaluation patient is been diagnosed with sepsis due to pneumonia. Patient has advanced dementia and is unable to give any history by herself whatsoever. Patient however is appearing tachypneic. Past medical history; 1. History of chronic atrial fibrillation. 2. Advanced dementia. 3. History of G-tube placement. 4. History of diabetes. 5. History of hypertension. Medications; reviewed. Allergies; none. Social history, family history, occupational history is are not available. Review of systems; unable to be obtained. General exam; elderly woman, on BiPAP. Noncommunicative. Tachypneic. Requesting Provider: MALINI GOMEZ Date/Time of Note DATE: 06/23/19 TIME: 09:20 24 HR Interval Summary Free Text/Dictation Patient's condition remains critical. Remains profoundly hypoxemic. General exam; elderly woman, orally intubated, sedated, currently in no di stress. Exam/Review of Systems Exam Vitals Vital Signs Date Temp Pulse Resp B/P (MAP) Pulse Ox O2 O2 Flow FiO2 Time Delivery Rate 06/23/19 72 26 100 80 07:42 06/23/19 139/72 Mechanical 06:30 (94) Ventilator 06/23/19 98.0 04:00 Intake and Output 06/22/19 06/22/19 06/23/19 1515:00 23:00 07:00 IntakeIntake Total 1104.724 ml 782.744 ml 719.424 ml OutputOutput Total 435 ml 540 ml 725 ml BalanceBalance 669.724 ml 242.744 ml -5.576 ml Exam H EENT exam; supple neck, no JVD. No lymphadenopathy. Midline trachea. No thyromegaly. Orally intubated. Patient has a multiple carious teeth. Chest exam; diminished breath sounds bilaterally with bilateral crackles. S1-S2 audible, no murmurs. Regular rhythm. Abdomen exam; soft, no organomegaly. G-tube in place. Bowel sounds are audible. Extremity exam; 2+ anasarca. [employer] exam; patient is sedated. Results Result Diagram: 06/23/19 0400 06/23/19 0400 Results 24hrs Laboratory Tests Test 06/22/19 11:18 06/22/19 12:26 06/22/19 13:54 06/22/19 17:26 Hemoglobin 7.3 L Hematocrit 23.0 L Bedside Glucose 209 127 Potassium Level 3.8 Test 06/22/19 20:08 06/22/19 21:39 06/23/19 01:01 06/23/19 04:00 Vancomycin Level 19.7 Trough Bedside Glucose 117 159 White Blood Count 16.5 H Red Blood Count 1.97 L Hemoglobin 6.3 *L Hematocrit 19.0 L Mean Corpuscular 96.4 Volume Mean Corpuscular 32.0 Hemoglobin Mean Corpuscular 33.2 Hemoglobin Concen t Red Cell 14.7 H Distribution Width Platelet Count 90 L Mean Platelet 11.9 H Volume Immature 1.500 H Granulocytes % Neutrophils % Segmented 78 H Neutrophils % (Manual) Band Neutrophils 19 H % (Manual) Lymphocytes % Lymphocytes % 3 L (Manual) Monocytes % Eosinophils % Basophils % Nucleated Red 0.0 Blood Cells % Immature 0.240 H Granulocytes # Neutrophils # Neutrophils # 13.4 H (Manual) Band Neutrophils 3.1 H # Lymphocytes 0.4 L (Manual) Lymphocytes # Monocytes # Eosinophils # Basophils # Nucleated Red Blood Cells # Platelet Estimate INCREASED Polychromasia 1+ Anisocytosis 1+ Sodium Level 144 Potassium Level 3.1 L Chloride Level 103 Carbon Dioxide 33 H Level Anion Gap 8 Blood Urea 78 H Nitrogen Creatinine 0.80 Glucose Level 116 Lactic Acid Level 1.3 Calcium Level 8.4 Phosphorus Level 4.7 Magnesium Level 2.2 Albumin 2.8 L Test 06/23/19 05:00 06/23/19 05:31 06/23/19 08:35 Blood Gas Blood arterial Specimen Source Arterial Blood 06/23/2019 4:50:3 Date Drawn 5 AM Arterial Blood pH 7.502 H (Temp corrected) Arterial Blood 42.1 pCO2 (Temp correct) Arterial Blood 116.0 H pO2 (Temp corrected) Arterial Blood 32.2 H HCO3 Arterial Blood 8.3 H Base Excess Arterial Blood 97.6 Oxygen Saturation James Test ACCEPTAB Arterial Blood Left Radial Gas Puncture Site Arterial 0.1 Blood Carboxyhemo globin Arterial Blood 0.4 Methemoglobin Blood Gas A-a O2 410.2 H Differential Oxyhemoglobin 97.1 Percent Blood Gas 37.0 Temperature Blood Gas 26.0 Respiration Rate Blood Gas Actual 26 Respiration Rate Blood Gas VENT - AC Modality FiO2 80.0 Blood Gas 1.0 Inspiratory Time Blood Gas Tidal 400.0 Volume Blood Gas Low 16.0 PEEP Setting Blood Gas [place] Notified Whom Blood Gas 06/23/2019 5:06:4 Notified Time 1 AM Bedside Glucose 136 173 Medications Medication Current Medications IV Flush (NS 3 ml) 3 ml PER PROTOCOL IV ; Start 06/10/19 at 12:00 Ondansetron HCl (Zofran Inj) 4 mg Q6H PRN IV NAUSEA/VOMITING; Start 06/10/19 at 12:00 Acetaminophen (Tylenol Tab) 650 mg Q6H PRN PO .PAIN 1-3 OR TEMP Last administered on 06/13/19at 15:52; Admin Dose 650 MG; Start 06/10/19 at 12:00 Acetaminophen/ Hydrocodone Bitart ([place] (5/325)) 1 tab Q6H PRN PO .PAIN 4-6; Start 06/10/19 at 12:00 Morphine Sulfate (morphine) 2 mg Q4H PRN IV .PAIN 7-10 Last administered on 06/15/19at 16:57; Admin Dose 2 MG; Start 06/10/19 at 12:00 Vancomycin HCl (Vanco Iv Per Pharmacy) VANCOMYCIN PER PHARMACY PER PROTOCOL XX ; Start 06/10/19 at 12:30 Amiodarone HCl (Cordarone) 100 mg DAILY GTB Last administered on 06/23/19at 08:37; Admin Dose 100 MG; Start 06/11/19 at 09:00 Atorvastatin Calcium (Lipitor) 20 mg QHS GTB Last administered on 7/28/19at 21:37; Admin Dose 20 MG; Start 06/10/19 at 21:00 Levetiracetam (Keppra Liquid) 500 mg BID GTB Last administered on 06/23/19 08:37; Admin Dose 500 MG; Start 06/10/19 at 21:00 Olanzapine (Zyprexa) 5 mg DAILY GTB Last administered on 06/23/19 08:36; Admin Dose 5 MG; Start 06/11/19 at 09:00 Polyethylene Glycol (Miralax) 17 gm DAILY GTB Last administered on 06/23/19 08:36; Admin Dose 17 GM; Start 06/11/19 at 09:00 Miscellaneous Information 1 ea NOTE XX ; Start 06/10/19 at 14:00 Glucose (Glutose) 15 gm Q15M PRN PO DECREASED GLUCOSE; Start 06/10/19 at 14:00 Glucose (Glutose) 22.5 gm Q15M PRN PO DECREASED GLUCOSE; Start 06/10/19 at 14:00 Dextrose (D50w Syringe) 25 ml Q15M PRN IV DECREASED GLUCOSE; Start 06/10/19 at 14:00 Dextrose (D50w Syringe) 50 ml Q15M PRN IV DECREASED GLUCOSE; Start 06/10/19 at 14:00 Glucagon (Glucagen) 1 mg Q15M PRN IM DECREASED GLUCOSE; Start 06/10/19 at 14:00 Glucose (Glutose) 15 gm Q15M PRN BUCCAL DECREASED GLUCOSE; Start 06/10/19 at 14:00 IV Flush (NS 10 ml) 10 ml [id number] PRN IV Line Patency; Start 06/10/19 at 16:00 Fluvoxamine Maleate (Fluvoxamine Maleate) 25 mg DAILY GTB Last administered on 06/23/19 08:36; Admin Dose 25 MG; Start 06/11/19 at 09:00 Aspirin (Aspirin) 81 mg DAILY PEG Last administered on 06/23/19 08:37; Admin Dose 81 MG; Start 06/11/19 at 09:00 Heparin Sodium (Porcine) (Heparin (5000 Units/1ml)) 5,000 unit Q8 SC Last admi nistered on 06/14/19 06:01; Admin Dose 5,000 UNIT; Start 06/11/19 at 14:00; Status Hold Ipratropium [place] (Atrovent 0.02% (Neb)) 0.5 mg Q4H RESP THERAPY PRN HHN SHORTNESS OF BREATH; Start 06/12/19 at 10:00 Levalbuterol (Xopenex Neb) 1.25 mg Q4H RESP THERAPY PRN HHN shortness of breath; Start 06/12/19 at 10:00 Fentanyl 100 ml @ 2.5 mls/hr TITRATE IV Last administered on 06/23/19 06:30; Admin Dose 10 MLS/HR; Start 06/12/19 at 10:00 Phenylephrine HCl 80 mg/Dextrose 250 ml @ 18.75 mls/ hr TITRATE IV Last administered on 06/16/19 08:39; Admin Dose 15.1 MLS/HR; Start 06/12/19 at 14:00 Levalbuterol (Xopenex Hfa) 4 puff Q6H RESP THERAPY INH Last administered on 06/23/19 07:45; Admin Dose 4 PUFF; Start 06/12/19 at 20:00 Ipratropium [place] (Atrovent Hfa) 4 puff Q6H RESP THERAPY INH Last administered on 06/23/19 07:45; Admin Dose 4 PUFF; Start 06/12/19 at 20:00 Norepinephrine 32 mg/Dextrose 250 ml @ 0.47 mls/hr TITRATE IV Last administered on 06/18/19 23:09; Admin Dose 0.94 MLS/HR; Start 06/13/19 at 08:00 Meropenem/Sodium Chloride 50 ml @ 100 mls/hr Q12 IVPB Last administered on 06/23/19 08:36; Admin Dose 100 MLS/HR; Start 06/13/19 at 14:00 Docusate Sodium (Colace Liquid Cup) 100 mg BID GTB Last administered on 06/23/19 08:37; Admin Dose 100 MG; Start 06/14/19 at 12:30 Insulin Aspart (Novolog Insulin Pen) NOVOLOG *MILD* [place]I... Q4 SC Last administered on 06/23/19 08:41; Admin Dose 1 UNIT; Start 06/16/19 at 21:00 Insulin Glargine (Lantus) 15 units DAILY@0800 SC Last administered on 06/22/19 08:49; Admin Dose 15 UNITS; Start 06/18/19 at 08:00 Caspofungin 50 mg/ Sodium Chloride 250 ml @ 250 mls/hr Q24H IVPB Last administered on 06/22/19at 12:30; Admin Dose 250 MLS/HR; Start 06/18/19 at 13:00 Midazolam HCl 50 ml @ 1 mls/hr TITRATE IV Last administered on 06/18/19 09:43; Admin Dose 2 MLS/HR; Start 06/17/19 at 15:30 Hydrocortisone (Solu-Cortef) 50 mg Q8 IV Last administered on 06/23/19at 05:34; Admin Dose 50 MG; Start 06/18/19 at 14:00 Propofol 100 ml @ 1.656 mls/ hr Q12H IV Last administered on 06/23/19at 03:27; Admin Dose 9.936 MLS/HR; Start 06/18/19 at 10:00 Lactobacillus Acidophilus/ Rhamnosus (Culturelle) 1 cap TID PO Last administered on 06/23/19at 08:36; Admin Dose 1 CAP; Start 06/18/19 at 21:00 Potassium Chloride (Potassium Chloride Pwd/Soln) 20 meq PER PROTOCOL PRN PO POTASSIUM REPLACEMENT PROTOCOL; Start 06/21/19 at 09:30 Potassium Chloride (Potassium Chloride Pwd/Soln) 30 meq PER PROTOCOL PRN PO POTASSIUM REPLACEMENT PROTOCOL; Start 06/21/19 at 09:30 Potassium Chloride (Potassium Chloride Pwd/Soln) 40 meq PER PROTOCOL PRN PO POTASSIUM REPLACEMENT PROTOCOL Last administered on 06/22/19at 09:09; Admin Dose 40 MEQ; Start 06/21/19 at 09:30 Bumetanide (Bumex) 1 mg BID DIURETICS IV ; Start 06/23/19 at 09:00 Vancomycin/Sodium Chloride 250 ml @ 125 mls/hr Q48H IVPB ; Start 06/23/19 at 09:00 Potassium Chloride 100 ml @ 50 mls/hr Q2H IVPB ; Start 06/23/19 at 09:00; Stop 06/23/19 at 12:59 CHARAN LAUREANO Jun 23, 2019 09:22
[2019-06-23] MEDS: POTASSIUM CHLORIDE 100 ML IVPB SCH ×2 (09:37→13:20)
[2019-06-23] MEDS: CASPOFUNGIN 50 MG in SOD CHLORIDE 0.9% 250 ML IVPB SCH (13:20)
[2019-06-23] MEDS: OCULAR LUBRICANT 3.5 GM OPH OINT BOTH EYES SCH ×2 (13:42→17:57)
[2019-06-23] MEDS: ARTIFICIAL TEARS 15 ML OPH BOTH EYES SCH ×4 (13:42→21:29)
--- NOTE | 2019-06-23 14:14 | CONS ---
Assessment/Plan Assessment/Plan Assessment/Plan (Daily) 1. acute Hypernatremia due to severe dehydration -resolved 2. acute Hyperkalemia due to FLOYD - Resolved 3. acute kidney injury on CKD III due to ATN from sepsis and Prerenal azotemia 4 . Septic shock due to multifocal PNA and UTI 5. Acute hypoxic respiratory failure due to PNA and Septic shock - Failed BIPAP- Intubated on 06/12/19 , 6. H/O severe dementia 7. H/O HTN 8. H/O HL 9. SNF resident 10. acute on chronic encephalopathy 11 h/o Dysphagia S/p G tube placement 12. Hypocalcemia with Ca 6.7 13. UTI with Urine cx growing ESBL Klebsiella Plan: BUN/Cr 78/0.8, K 3.1- replaced for today , Hb dropped to 6.3- plan for PRBC currenlty on IV abx meropenem for ESBL Klebsiella UTI, Sputum Cx grew Bridget Albicans and MRSA- pt is on IV cancidas, and IV vancomycin- Renally dose all abx and monitor electrolytes Ventilator Management as per pulmonary - still on high PEEP 10 DNR code status Ca 7.9 today, will give calcium gluconate if Ca drops lwer than 7.0 will follow up Consultation Date/Type/Reason Admit Date/Time Jun 10, 2019 at 12:38 Initial Consult Date 06/11/19 Type of Consult NEPHROLOGY Requesting Provider: MALINI GOMEZ Date/Time of Note DATE: 06/23/19 TIME: 14:14 Exam/Review of Systems Exam Vitals Vital Signs Date Temp Pulse Resp B/P (MAP) Pulse Ox O2 O2 Flow FiO2 Time Delivery Rate 06/23/19 90 12:00 06/23/19 100 12:00 06/23/19 27 127/72 87 Mechanical 11:30 (90) Ventilator 06/23/19 98.2 08:00 Intake and Output 06/22/19 06/22/19 06/23/19 1515:00 23:00 07:00 IntakeIntake Total 1104.724 ml 782.744 ml 719.424 ml OutputOutput Total 435 ml 540 ml 725 ml BalanceBalance 669.724 ml 242.744 ml -5.576 ml Exam General: intubated on ventilator HEENT: ET tube in place, NG tube Neck: Supple, + JVD , no LAD Respiratory: Bilateral coarse BS+, basilar wheezing Cardiovascular: S1 S2 tachycardia, no murmur Gastrointestinal: soft, NT, ND, Thin abdomen, BS+, + PEG tube in place Neurological: sedated intubated on ventilator Results Result Diagram: 06/23/19 0400 06/23/19 0400 Results 24hrs Laboratory Tests Test 06/22/19 17:26 06/22/19 20:08 06/22/19 21:39 06/23/19 01:01 Bedside Glucose 127 117 159 Vancomycin Level 19.7 Trough Test 06/23/19 04:00 06/23/19 05:00 06/23/19 05:31 06/23/19 08:35 White Blood 16.5 H Count Red Blood Count 1.97 L Hemoglobin 6.3 *L Hematocrit 19.0 L Mean Corpuscular 96.4 Volume Mean Corpuscular 32.0 Hemoglobin Mean Corpuscular 33.2 Hemoglobin Christina nt Red Cell 14.7 H Distribution Width Platelet Count 90 L Mean Platelet 11.9 H Volume Immature 1.500 H Granulocytes % Neutrophils % Segmented 78 H Neutrophils % (Manual) Band Neutrophils 19 H % (Manual) Lymphocytes % Lymphocytes % 3 L (Manual) Monocytes % Eosinophils % Basophils % Nucleated Red 0.0 Blood Cells % Immature 0.240 H Granulocytes # Neutrophils # Neutrophils # 13.4 H (Manual) Band Neutrophils 3.1 H # Lymphocytes 0.4 L (Manual) Lymphocytes # Monocytes # Eosinophils # Basophils # Nucleated Red Blood Cells # Platelet INCREASED Estimate Polychromasia 1+ Anisocytosis 1+ Sodium Level 144 Potassium Level 3.1 L Chloride Level 103 Carbon Dioxide 33 H Level Anion Gap 8 Blood Urea 78 H Nitrogen Creatinine 0.80 Glucose Level 116 Lactic Acid 1.3 Level Calcium Level 8.4 Phosphorus Level 4.7 Magnesium Level 2.2 Albumin 2.8 L Blood Gas Blood arterial Specimen Source Arterial Blood 06/23/2019 4:50: Date Drawn 35 AM Arterial Blood 7.502 H pH (Temp corrected) Arterial Blood 42.1 pCO2 (Temp correct) Arterial Blood 116.0 H pO2 (Temp corrected) Arterial Blood 32.2 H HCO3 Arterial Blood 8.3 H Base Excess Arterial Blood 97.6 Oxygen Saturatio n James Test ACCEPTAB Arterial Blood Left Radial Gas Puncture Site Arterial 0.1 Blood Carboxyhem oglobin Arterial Blood 0.4 Methemoglobin Blood Gas A-a O2 410.2 H Differential Oxyhemoglobin 97.1 Percent Blood Gas 37.0 Temperature Blood Gas 26.0 Respiration Rate Blood Gas Actual 26 Respiration Rate Blood Gas VENT - AC Modality FiO2 80.0 Blood Gas 1.0 Inspiratory Time Blood Gas Tidal 400.0 Volume Blood Gas Low 16.0 PEEP Setting Blood Gas MA Notified Whom Blood Gas 06/23/2019 5:06: Notified Time 41 AM Bedside Glucose 136 173 Test 06/23/19 08:56 06/23/19 13:45 Blood Gas Blood arterial Specimen Source Arterial Blood 06/23/2019 9:10: Date Drawn 48 AM Arterial Blood 7.460 H pH (Temp corrected) Arterial Blood 46.5 H pCO2 (Temp correct) Arterial Blood 59.7 L pO2 (Temp corrected) Arterial Blood 32.3 H HCO3 Arterial Blood 7.7 H Base Excess Arterial Blood 90.2 L Oxygen Saturatio n James Test ACCEPTAB Arterial Blood Right Radial Gas Puncture Site Arterial 0.3 Blood Carboxyhem oglobin Arterial Blood 0.7 Methemoglobin Blood Gas A-a O2 389.4 H Differential Oxyhemoglobin 89.3 L Percent Blood Gas 37.0 Temperature Blood Gas 26.0 Respiration Rate Blood Gas Actual 26 Respiration Rate Blood Gas VENT - AC Modality FiO2 70.0 Blood Gas Tidal 400.0 Volume Blood Gas Low 10.0 PEEP Setting Blood Gas TM Notified Whom Blood Gas 06/23/2019 9:19: Notified Time 33 AM Bedside Glucose 194 Medications Medication Current Medications IV Flush (NS 3 ml) 3 ml PER PROTOCOL IV ; Start 06/10/19 at 12:00 Ondansetron HCl (Zofran Inj) 4 mg Q6H PRN IV NAUSEA/VOMITING; Start 06/10/19 at 12:00 Acetaminophen (Tylenol Tab) 650 mg Q6H PRN PO .PAIN 1-3 OR TEMP Last administered on 06/13/19at 15:52; Admin Dose 650 MG; Start 06/10/19 at 12:00 Acetaminophen/ Hydrocodone Bitart ([place] (5/325)) 1 tab Q6H PRN PO .PAIN 4-6; Start 06/10/19 at 12:00 Morphine Sulfate (morphine) 2 mg Q4H PRN IV .PAIN 7-10 Last administered on 06/15/19at 16:57; Admin Dose 2 MG; Start 06/10/19 at 12:00 Vancomycin HCl (Vanco Iv Per Pharmacy) VANCOMYCIN PER PHARMACY PER PROTOCOL XX ; Start 06/10/19 at 12:30 Amiodarone HCl (Cordarone) 100 mg DAILY GTB Last administered on 06/23/19at 08:37; Admin Dose 100 MG; Start 06/11/19 at 09:00 Atorvastatin Calcium (Lipitor) 20 mg QHS GTB Last administered on 06/22/19at 21:37; Admin Dose 20 MG; Start 06/10/19 at 21:00 Levetiracetam (Keppra Liquid) 500 mg BID GTB Last administered on 06/23/19at 08:37; Admin Dose 500 MG; Start 06/10/19 at 21:00 Olanzapine (Zyprexa) 5 mg DAILY GTB Last administered on 06/23/19at 08:36; Admin Dose 5 MG; Start 06/11/19 at 09:00 Polyethylene Glycol (Miralax) 17 gm DAILY GTB Last administered on 06/23/19at 08:36; Admin Dose 17 GM; Start 06/11/19 at 09:00 Miscellaneous Information 1 ea NOTE XX ; Start 06/10/19 at 14:00 Glucose (Glutose) 15 gm Q15M PRN PO DECREASED GLUCOSE; Start 06/10/19 at 14:00 Glucose (Glutose) 22.5 gm Q15M PRN PO DECREASED GLUCOSE; Start 06/10/19 at 14:00 Dextrose (D50w Syringe) 25 ml Q15M PRN IV DECREASED GLUCOSE; Start 06/10/19 at 14:00 Dextrose (D50w Syringe) 50 ml Q15M PRN IV DECREASED GLUCOSE; Start 06/10/19 at 14:00 Glucagon (Glucagen) 1 mg Q15M PRN IM DECREASED GLUCOSE; Start 06/10/19 at 14:00 Glucose (Glutose) 15 gm Q15M PRN BUCCAL DECREASED GLUCOSE; Start 06/10/19 at 14:00 IV Flush (NS 10 ml) 10 ml [id number] PRN IV Line Patency; Start 06/10/19 at 16:00 Fluvoxamine Maleate (Fluvoxamine Maleate) 25 mg DAILY GTB Last administered on 06/23/19at 08:36; Admin Dose 25 MG; Start 06/11/19 at 09:00 Aspirin (Aspirin) 81 mg DAILY PEG Last administered on 06/23/19 08:37; Admin Dose 81 MG; Start 06/11/19 at 09:00 Heparin Sodium (Porcine) (Heparin (5000 Units/1ml)) 5,000 unit Q8 SC Last administered on 06/14/19 06:01; Admin Dose 5,000 UNIT; Start 06/11/19 at 14:00; Status Hold Ipratropium [place] (Atrovent 0.02% (Neb)) 0.5 mg Q4H RESP THERAPY PRN HHN SHORTNESS OF BREATH; Start 06/12/19 at 10:00 Levalbuterol (Xopenex Neb) 1.25 mg Q4H RESP THERAPY PRN HHN shortness of breath; Start 06/12/19 at 10:00 Fentanyl 100 ml @ 2.5 mls/hr TITRATE IV Last administered on 06/23/19 06:30; Admin Dose 10 MLS/HR; Start 06/12/19 at 10:00 Phenylephrine HCl 80 mg/Dextrose 250 ml @ 18.75 mls/ hr TITRATE IV Last administered on 06/16/19 08:39; Admin Dose 15.1 MLS/HR; Start 06/12/19 at 14:00 Levalbuterol (Xopenex Hfa) 4 puff Q6H RESP THERAPY INH Last administered on 06/23/19 13:03; Admin Dose 4 PUFF; Start 06/12/19 at 20:00 Ipratropium [place] (Atrovent Hfa) 4 puff Q6H RESP THERAPY INH Last administered on 06/23/19 13:04; Admin Dose 4 PUFF; Start 06/12/19 at 20:00 Norepinephrine 32 mg/Dextrose 250 ml @ 0.47 mls/hr TITRATE IV Last admini stered on 06/18/19 23:09; Admin Dose 0.94 MLS/HR; Start 06/13/19 at 08:00 Meropenem/Sodium Chloride 50 ml @ 100 mls/hr Q12 IVPB Last administered on 06/23/19 08:36; Admin Dose 100 MLS/HR; Start 06/13/19 at 14:00 Docusate Sodium (Colace Liquid Cup) 100 mg BID GTB Last administered on 06/23/19 08:37; Admin Dose 100 MG; Start 06/14/19 at 12:30 Insulin Aspart (Novolog Insulin Pen) NOVOLOG *MILD* ALGORI... Q4 SC Last administered on 06/23/19 13:48; Admin Dose 2 UNIT; Start 06/16/19 at 21:00 Insulin Glargine (Lantus) 15 units DAILY@0800 SC Last administered on 06/23/19 09:19; Admin Dose 15 UNITS; Start 06/18/19 at 08:00 Caspofungin 50 mg/ Sodium Chloride 250 ml @ 250 mls/hr Q24H IVPB Last administered on 06/23/19 13:20; Admin Dose 250 MLS/HR; Start 06/18/19 at 13:00 Midazolam HCl 50 ml @ 1 mls/hr TITRATE IV Last administered on 06/18/19 09:43; Admin Dose 2 MLS/HR; Start 06/17/19 at 15:30 Hydrocortisone (Solu-Cortef) 50 mg Q8 IV Last administered on 06/23/19 13:42; Admin Dose 50 MG; Start 06/18/19 at 14:00 Propofol 100 ml @ 1.656 mls/ hr Q12H IV Last administered on 06/23/19 03:27; Admin Dose 9.936 MLS/HR; Start 06/18/19 at 10:00 Lactobacillus Acidophilus/ Rhamnosus (Culturelle) 1 cap TID PO Last administered on 06/23/19 13:42; Admin Dose 1 CAP; Start 06/18/19 at 21:00 Potassium Chloride (Potassium Chloride Pwd/Soln) 20 meq PER PROTOCOL PRN PO POTASSIUM REPLACEMENT PROTOCOL; Start 06/21/19 at 09:30 Potassium Chloride (Potassium Chloride Pwd/Soln) 30 meq PER PROTOCOL PRN PO POTASSIUM REPLACEMENT PROTOCOL; Start 06/21/19 at 09:30 Potassium Chloride (Potassium Chloride Pwd/Soln) 40 meq PER PROTOCOL PRN PO POTASSIUM REPLACEMENT PROTOCOL Last administered on 06/22/19 09:09; Admin Dose 40 MEQ; Start 06/21/19 at 09:30 Bumetanide (Bumex) 1 mg BID DIURETICS IV Last administered on 06/23/19 09:14; Admin Dose 1 MG; Start 06/23/19 at 09:00 Vancomycin/Sodium Chloride 250 ml @ 125 mls/hr Q48H IVPB Last administered on 06/23/19 09:14; Admin Dose 125 MLS/HR; Start 06/23/19 at 09:00 Eye Lubricant (Artificial Tears Oph) 2 drop QID BOTH EYES Last administered on 06/23/19 13:52; Admin Dose 2 DROP; Start 06/23/19 at 09:30 Eye Lubricant (Akwa Oint) 1 applic Q6 BOTH EYES Last administered on 06/23/19 13:42; Admin Dose 1 APPLIC; Start 06/23/19 at 12:00 GERMAN FELIX MD Jun 23, 2019 14:14
[2019-06-23] MEDS: ATORVASTATIN 20 MG TAB GTB SCH (21:29)
--- NOTE | 2019-06-23 21:50 | PN ---
DATE: 06/23/2019 SUBJECTIVE: No acute changes. The patient remains on high PEEP and 100% FiO2, noncommunicative, in no distress. No fevers. WBC 16.5, H and H of 6.3 and 19, platelets 90, neutrophils 78, bands 19. BUN 78, creatinine 0.80. INDWELLINGS: Endotracheal tube, PEG, Dial, PICC line. DIAGNOSTICS: Chest x-ray revealed mild improvement in aeration. ANTIMICROBIALS: The patient remains on: 1. Merrem. 2. Vancomycin. 3. Cancidas. PHYSICAL EXAMINATION: GENERAL: This is a chronically ill-appearing, elderly woman who is in no distress. HEENT: Head atraumatic, normocephalic. Sclerae anicteric. Buccal mucosa dry. NECK: Supple. Trachea midline. CHEST: Rise symmetrical. Breath sounds with scattered crackles. HEART: S1, S2. ABDOMEN: Distended. Bowel tones are hypoactive. EXTREMITIES: Cyanotic with trace edema. SKIN: Positive for anasarca. ASSESSMENT: 1. Acute on chronic hypoxemic respiratory failure. 2. Pneumonia with adult respiratory distress syndrome. 3. Escherichia coli extended-spectrum beta-lactamase urinary tract infection. 4. Atrial fibrillation status post rapid ventricular response. 5. Cblqc-wy-qekdqot encephalopathy. 6. [id number]-[id number] myocardial infarction. PLAN: The patient remains unchanged, status post blood transfusion earlier today. She is completing antibiotics. Continue vent management per pulmonary. Dictated By: JACKIE CORTÉS PARAMEDIC SUPERVISOR for LARISSA SOTO/JACQUELINE Conf#: [id number] DID#: [id number]
[2019-06-24] VITALS (58 sets, daily range): BP systolic 105–147; BP diastolic 62–82; PULSE 59–79; RESP 19–26
[2019-06-24] MEDS: OCULAR LUBRICANT 3.5 GM OPH OINT BOTH EYES SCH ×4 (00:36→17:56)
[2019-06-24] MEDS: INSULIN ASPART [NOVOLOG] 3 ML PEN SC SCH ×6 (00:40→21:53)
[2019-06-24] MEDS: LEVALBUTEROL (HFA) 15 GM INHALER INH SCH ×4 (01:20→19:29)
[2019-06-24] MEDS: IPRATROPIUM (HFA) 12.9 GM INHALER INH SCH ×4 (01:20→19:29)
[2019-06-24] MEDS: PROPOFOL 100 ML IV SCH ×2 (01:42→16:02)
[2019-06-24] MEDS: FENTAnyl (DRIP) 1000 mcg/100mL 100 ML IV SCH ×3 (02:34→21:55)
[2019-06-24] MEDS: BUMETANIDE 1 MG INJ IV SCH ×2 (05:41→17:56)
[2019-06-24] MEDS: HYDROCORTISONE 100 MG INJ IV SCH ×3 (05:41→21:43)
--- NOTE | 2019-06-24 08:19 | CONS ---
Assessment/Plan Assessment/Plan Assessment/Plan (Daily) Ventilator setting; assist control of 26, tidal volume 400, PEEP of 16, 100% FiO2. Patient is currently on fentanyl 100 mics per hour, propofol 25 mics per kilogram per minute. Assessment and recommendations; 1. Patient admitted with severe bilateral pneumonia with ARDS with worsening hypoxemia. 2. History of seizure disorder and diabetes. 3. History of advanced dementia. 4. Anemia and thrombocytopenia. Continue current supportive care. Gradually decrease PEEP to 10 as tolerated. Obtain follow-up chest x-ray. Prognosis is extremely poor. Consultation Date/Type/Reason Admit Date/Time Jun 10, 2019 at 12:38 Initial Consult Date 06/11/19 Type of Consult Pulmonary/critical care Patient is an 84-year-old [place] lady who was transferred to to the hospital from alf with hypoxemia. Upon evaluation patient is been diagnosed with sepsis due to pneumonia. Patient has advanced dementia and is unable to give any history by herself whatsoever. Patient however is appearing tachypneic. Past medical history; 1. History of chronic atrial fibrillation. 2. Advanced dementia. 3. History of G-tube placement. 4. History of diabetes. 5. History of hypertension. Medications; reviewed. Allergies; none. Social history, family history, occupational history is are not available. Review of systems; unable to be obtained. General exam; elderly woman, on BiPAP. Noncommunicative. Tachypneic. Requesting Provider: MALINI GOMEZ Date/Time of Note DATE: 06/24/19 TIME: 08:17 24 HR Interval Summary Free Text/Dictation Patient's condition is critical. Getting progressively more hypoxemic. General exam; elderly woman, orally intubated, unresponsive, currently in no distress. Exam/Review of Systems Exam Vitals Vital Signs Date Temp Pulse Resp B/P (MAP) Pulse Ox O2 O2 Flow FiO2 Time Delivery Rate 06/24/19 100 08:03 06/24/19 64 26 105/63 100 Mechanical 06:30 (77) Ventilator 06/24/19 97.8 04:00 Intake and Output 06/23/19 06/23/19 06/24/19 1515:00 23:00 07:00 IntakeIntake Total 1374 ml 704.835 ml 704.668 ml OutputOutput Total 290 ml 480 ml 250 ml BalanceBalance 1084 ml 224.835 ml 454.668 ml Exam H EENT exam; supple neck, no JVD. No lymphadenopathy. Midline trachea. No thyromegaly. Orally intubated. Patient has fair dentition. No neck masses. Chest exam; diminished breath sounds bilaterally with bilateral crackles. S1-S2 audible, no murmurs. Irregular rhythm. Abdomen exam; soft, no organomegaly. Bowel sounds are audible. Extremity exam; 1+ generalized anasarca. 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 Results Result Diagram: 06/24/19 0400 06/24/19 0400 Results 24hrs Laboratory Tests Test 06/23/19 08:35 06/23/19 08:56 06/23/19 13:45 06/23/19 16:32 Bedside Glucose 173 194 180 Blood Gas Blood arterial Specimen Source Arterial Blood 06/23/2019 9:10: Date Drawn 48 AM Arterial Blood 7.460 H pH (Temp corrected) Arterial Blood 46.5 H pCO2 (Temp correct) Arterial Blood 59.7 L pO2 (Temp corrected) Arterial Blood 32.3 H HCO3 Arterial Blood 7.7 H Base Excess Arterial Blood 90.2 L Oxygen Saturatio n James Test ACCEPTAB Arterial Blood Right Radial Gas Puncture Site Arterial 0.3 Blood Carboxyhem oglobin Arterial Blood 0.7 Methemoglobin Blood Gas A-a O2 389.4 H Differential Oxyhemoglobin 89.3 L Percent Blood Gas 37.0 Temperature Blood Gas 26.0 Respiration Rate Blood Gas Actual 26 Respiration Rate Blood Gas VENT - AC Modality FiO2 70.0 Blood Gas Tidal 400.0 Volume Blood Gas Low 10.0 PEEP Setting Blood Gas TM Notified Whom Blood Gas 06/23/2019 9:19: Notified Time 33 AM Test 06/23/19 17:54 06/23/19 21:28 06/24/19 00:35 06/24/19 04:00 Bedside Glucose 187 170 189 White Blood 15.8 H Count Red Blood Count 2.49 #L Hemoglobin 7.9 #L Hematocrit 23.5 #L Mean Corpuscular 94.4 Volume Mean Corpuscular 31.7 Hemoglobin Mean Corpuscular 33.6 Hemoglobin Christina nt Red Cell 15.2 H Distribution Width Platelet Count 103 L Mean Platelet 12.0 H Volume Immature 1.400 H Granulocytes % Neutrophils % 93.3 H Lymphocytes % 2.2 L Monocytes % 3.0 Eosinophils % 0.0 Basophils % 0.1 Nucleated Red 0.0 Blood Cells % Immature 0.220 H Granulocytes # Neutrophils # 14.7 H Lymphocytes # 0.4 L Monocytes # 0.5 Eosinophils # 0.0 Basophils # 0.0 Nucleated Red 0.0 Blood Cells # Sodium Level 143 Potassium Level 3.6 Chloride Level 103 Carbon Dioxide 31 Level Anion Gap 9 Blood Urea 86 H Nitrogen Creatinine 0.87 Glucose Level 175 Calcium Level 8.2 L Phosphorus Level 4.5 Magnesium Level 2.2 Albumin 2.3 L Test 06/24/19 04:57 06/24/19 05:32 Lab Scanned BLOOD TRANSFUSI Report ON Bedside Glucose 175 Medications Medication Current Medications IV Flush (NS 3 ml) 3 ml PER PROTOCOL IV ; Start 06/10/19 at 12:00 Ondansetron HCl (Zofran Inj) 4 mg Q6H PRN IV NAUSEA/VOMITING; Start 06/10/19 at 12:00 Acetaminophen (Tylenol Tab) 650 mg Q6H PRN PO .PAIN 1-3 OR TEMP Last administered on 06/13/19at 15:52; Admin Dose 650 MG; Start 06/10/19 at 12:00 Acetaminophen/ Hydrocodone Bitart ([place] (5/325)) 1 tab Q6H PRN PO .PAIN 4-6; Start 06/10/19 at 12:00 Morphine Sulfate (morphine) 2 mg Q4H PRN IV .PAIN 7-10 Last administered on 06/15/19at 16:57; Admin Dose 2 MG; Start 06/10/19 at 12:00 Vancomycin HCl (Vanco Iv Per Pharmacy) VANCOMYCIN PER PHARMACY PER PROTOCOL XX ; Start 06/10/19 at 12:30 Amiodarone HCl (Cordarone) 100 mg DAILY GTB Last administered on 06/23/19at 08:37; Admin Dose 100 MG; Start 06/11/19 at 09:00 Atorvastatin Calcium (Lipitor) 20 mg QHS GTB Last administered on 06/23/19at 21:29; Admin Dose 20 MG; Start 06/10/19 at 21:00 Levetiracetam (Keppra Liquid) 500 mg BID GTB Last administered on 06/23/19at 21:29; Admin Dose 500 MG; Start 06/10/19 at 21:00 Olanzapine (Zyprexa) 5 mg DAILY GTB Last administered on 06/23/19 08:36; Admin Dose 5 MG; Start 06/11/19 at 09:00 Polyethylene Glycol (Miralax) 17 gm DAILY GTB Last administered on 06/23/19at 08:36; Admin Dose 17 GM; Start 06/11/19 at 09:00 Miscellaneous Information 1 ea NOTE XX ; Start 06/10/19 at 14:00 Glucose (Glutose) 15 gm Q15M PRN PO DECREASED GLUCOSE; Start 06/10/19 at 14:00 Glucose (Glutose) 22.5 gm Q15M PRN PO DECREASED GLUCOSE; Start 06/10/19 at 14:00 Dextrose (D50w Syringe) 25 ml Q15M PRN IV DECREASED GLUCOSE; Start 06/10/19 at 14:00 Dextrose (D50w Syringe) 50 ml Q15M PRN IV DECREASED GLUCOSE; Start 06/10/19 at 14:00 Glucagon (Glucagen) 1 mg Q15M PRN IM DECREASED GLUCOSE; Start 06/10/19 at 14:00 Glucose (Glutose) 15 gm Q15M PRN BUCCAL DECREASED GLUCOSE; Start 06/10/19 at 14:00 IV Flush (NS 10 ml) 10 ml [id number] PRN IV Line Patency; Start 06/10/19 at 16:00 Fluvoxamine Maleate (Fluvoxamine Maleate) 25 mg DAILY GTB Last administered on 06/23/19at 08:36; Admin Dose 25 MG; Start 06/11/19 at 09:00 Aspirin (Aspirin) 81 mg DAILY PEG Last administered on 06/23/19at 08:37; Admin Dose 81 MG; Start 06/11/19 at 09:00 Heparin Sodium (Porcine) (Heparin (5000 Units/1ml)) 5,000 unit Q8 SC Last administered on 06/14/19at 06:01; Admin Dose 5,000 UNIT; Start 06/11/19 at 14:00; Status Hold Ipratropium [place] (Atrovent 0.02% (Neb)) 0.5 mg Q4H RESP THERAPY PRN HHN SHORTNESS OF BREATH; Start 06/12/19 at 10:00 Levalbuterol (Xopenex Neb) 1.25 mg Q4H RESP THERAPY PRN HHN shortness of breath; Start 06/12/19 at 10:00 Fentanyl 100 ml @ 2.5 mls/hr TITRATE IV Last administered on 06/24/19 02:34; Admin Dose 10 MLS/HR; Start 06/12/19 at 10:00 Phenylephrine HCl 80 mg/Dextrose 250 ml @ 18.75 mls/ hr TITRATE IV Last administered on 06/16/19 08:39; Admin Dose 15.1 MLS/HR; Start 06/12/19 at 14:00 Levalbuterol (Xopenex Hfa) 4 puff Q6H RESP THERAPY INH Last administered on 06/24/19 08:13; Admin Dose 4 PUFF; Start 06/12/19 at 20:00 Ipratropium [place] (Atrovent Hfa) 4 puff Q6H RESP THERAPY INH Last administered on 06/24/19 08:13; Admin Dose 4 PUFF; Start 06/12/19 at 20:00 Norepinephrine 32 mg/Dextrose 250 ml @ 0.47 mls/hr TITRATE IV Last adminis tered on 06/18/19 23:09; Admin Dose 0.94 MLS/HR; Start 06/13/19 at 08:00 Meropenem/Sodium Chloride 50 ml @ 100 mls/hr Q12 IVPB Last administered on 06/23/19 21:29; Admin Dose 100 MLS/HR; Start 06/13/19 at 14:00 Docusate Sodium (Colace Liquid Cup) 100 mg BID GTB Last administered on 06/23/19 08:37; Admin Dose 100 MG; Start 06/14/19 at 12:30 Insulin Aspart (Novolog Insulin Pen) NOVOLOG *MILD* ALGORI... Q4 SC Last administered on 06/24/19 05:37; Admin Dose 1 UNIT; Start 06/16/19 at 21:00 Insulin Glargine (Lantus) 15 units DAILY@0800 SC Last administered on 06/23/19 09:19; Admin Dose 15 UNITS; Start 06/18/19 at 08:00 Caspofungin 50 mg/ Sodium Chloride 250 ml @ 250 mls/hr Q24H IVPB Last administered on 06/23/19 13:20; Admin Dose 250 MLS/HR; Start 06/18/19 at 13:00 Midazolam HCl 50 ml @ 1 mls/hr TITRATE IV Last administered on 06/18/19 09:43; Admin Dose 2 MLS/HR; Start 06/17/19 at 15:30 Hydrocortisone (Solu-Cortef) 50 mg Q8 IV Last administered on 06/24/19 05:41; Admin Dose 50 MG; Start 06/18/19 at 14:00 Propofol 100 ml @ 1.656 mls/ hr Q12H IV Last administered on 06/24/19 01:42; Admin Dose 8.28 MLS/HR; Start 06/18/19 at 10:00 Lactobacillus Acidophilus/ Rhamnosus (Culturelle) 1 cap TID PO Last administered on 06/23/19 21:29; Admin Dose 1 CAP; Start 06/18/19 at 21:00 Potassium Chloride (Potassium Chloride Pwd/Soln) 20 meq PER PROTOCOL PRN PO POTASSIUM REPLACEMENT PROTOCOL; Start 06/21/19 at 09:30 Potassium Chloride (Potassium Chloride Pwd/Soln) 30 meq PER PROTOCOL PRN PO POTASSIUM REPLACEMENT PROTOCOL; Start 06/21/19 at 09:30 Potassium Chloride (Potassium Chloride Pwd/Soln) 40 meq PER PROTOCOL PRN PO POTASSIUM REPLACEMENT PROTOCOL Last administered on 06/22/19 09:09; Admin Dose 40 MEQ; Start 06/21/19 at 09:30 Bumetanide (Bumex) 1 mg BID DIURETICS IV Last administered on 06/24/19 05:41; Admin Dose 1 MG; Start 06/23/19 at 09:00 Vancomycin/Sodium Chloride 250 ml @ 125 mls/hr Q48H IVPB Last administered on 06/23/19 09:14; Admin Dose 125 MLS/HR; Start 06/23/19 at 09:00 Eye Lubricant (Artificial Tears Oph) 2 drop QID BOTH EYES Last administered on 06/23/19 21:29; Admin Dose 2 DROP; Start 06/23/19 at 09:30 Eye Lubricant (Akwa Oint) 1 applic Q6 BOTH EYES Last administered on 06/24/19 05:42; Admin Dose 1 APPLIC; Start 06/23/19 at 12:00 CHARAN LAUREANO Jun 24, 2019 08:19
[2019-06-24] MEDS: LACTOBACILLUS RHAMNOSUS CAP PO SCH ×3 (08:22→21:43)
[2019-06-24] MEDS: ASPIRIN 81 MG TAB PEG SCH (08:22)
[2019-06-24] MEDS: FLUVOXAMINE MALEATE 25 MG TABLET GTB SCH (08:22)
[2019-06-24] MEDS: MEROPENEM 1 GM/50ML(PMX) 50 ML IVPB SCH ×2 (08:22→21:43)
[2019-06-24] MEDS: POLYETHYLENE GLYCOL 17 GM PACKET GTB SCH (08:22)
[2019-06-24] MEDS: AMIODARONE 200 MG TAB GTB SCH (08:23)
[2019-06-24] MEDS: LEVETIRACETAM (100 MG/ML) 5ML CUP GTB SCH ×2 (08:23→22:04)
[2019-06-24] MEDS: ARTIFICIAL TEARS 15 ML OPH BOTH EYES SCH ×4 (08:24→21:39)
[2019-06-24] MEDS: DOCUSATE SODIUM 10 MG/ML (10ML CUP) GTB SCH ×2 (08:25→21:00)
[2019-06-24] MEDS: BALSAM PERU/CASTOR OIL 60 GM TUBE TOP SCH (08:25)
[2019-06-24] MEDS: OLANZAPINE 5 MG TAB GTB SCH (08:26)
[2019-06-24] MEDS: INSULIN GLARGINE [LANTus] (100 UNITS/ML) SYG SC SCH (08:54)
--- NOTE | 2019-06-24 10:08 | PN ---
Date/Time of Note Date/Time of Note DATE: 06/24/19 TIME: 10:07 Objective Vitals Vital Signs Date Temp Pulse Resp B/P (MAP) Pulse Ox O2 O2 Flow FiO2 Time Delivery Rate 06/24/19 100 08:03 06/24/19 64 26 105/63 100 Mechanical 06:30 (77) Ventilator 06/24/19 97.8 04:00 Intake and Output 06/23/19 06/23/19 06/24/19 1515:00 23:00 07:00 IntakeIntake Total 1374 ml 704.835 ml 704.668 ml OutputOutput Total 290 ml 480 ml 250 ml BalanceBalance 1084 ml 224.835 ml 454.668 ml Results Result Diagram: 06/24/19 0400 06/24/19 0400 Medications Medications Current Medications IV Flush (NS 3 ml) 3 ml PER PROTOCOL IV ; Start 06/10/19 at 12:00 Ondansetron HCl (Zofran Inj) 4 mg Q6H PRN IV NAUSEA/VOMITING; Start 06/10/19 at 12:00 Acetaminophen (Tylenol Tab) 650 mg Q6H PRN PO .PAIN 1-3 OR TEMP Last administe red on 06/13/19at 15:52; Admin Dose 650 MG; Start 06/10/19 at 12:00 Acetaminophen/ Hydrocodone Bitart ([place] (5/325)) 1 tab Q6H PRN PO .PAIN 4-6; Start 06/10/19 at 12:00 Morphine Sulfate (morphine) 2 mg Q4H PRN IV .PAIN 7-10 Last administered on 06/15/19at 16:57; Admin Dose 2 MG; Start 06/10/19 at 12:00 Vancomycin HCl (Vanco Iv Per Pharmacy) VANCOMYCIN PER PHARMACY PER PROTOCOL XX ; Start 06/10/19 at 12:30 Amiodarone HCl (Cordarone) 100 mg DAILY GTB Last administered on 06/24/19at 08:23; Admin Dose 100 MG; Start 06/11/19 at 09:00 Atorvastatin Calcium (Lipitor) 20 mg QHS GTB Last administered on 06/23/19at 21:29; Admin Dose 20 MG; Start 06/10/19 at 21:00 Levetiracetam (Keppra Liquid) 500 mg BID GTB Last administered on 06/24/19 08:23; Admin Dose 500 MG; Start 06/10/19 at 21:00 Olanzapine (Zyprexa) 5 mg DAILY GTB Last administered on 06/24/19 08:26; Admin Dose 5 MG; Start 06/11/19 at 09:00 Polyethylene Glycol (Miralax) 17 gm DAILY GTB Last administered on 06/24/19 08:22; Admin Dose 17 GM; Start 06/11/19 at 09:00 Miscellaneous Information 1 ea NOTE XX ; Start 06/10/19 at 14:00 Glucose (Glutose) 15 gm Q15M PRN PO DECREASED GLUCOSE; Start 06/10/19 at 14:00 Glucose (Glutose) 22.5 gm Q15M PRN PO DECREASED GLUCOSE; Start 06/10/19 at 14:00 Dextrose (D50w Syringe) 25 ml Q15M PRN IV DECREASED GLUCOSE; Start 06/10/19 at 14:00 Dextrose (D50w Syringe) 50 ml Q15M PRN IV DECREASED GLUCOSE; Start 06/10/19 at 14:00 Glucagon (Glucagen) 1 mg Q15M PRN IM DECREASED GLUCOSE; Start 06/10/19 at 14:00 Glucose (Glutose) 15 gm Q15M PRN BUCCAL DECREASED GLUCOSE; Start 06/10/19 at 14:00 IV Flush (NS 10 ml) 10 ml [id number] PRN IV Line Patency; Start 06/10/19 at 16:00 Fluvoxamine Maleate (Fluvoxamine Maleate) 25 mg DAILY GTB Last administered on 06/24/19 08:22; Admin Dose 25 MG; Start 06/11/19 at 09:00 Aspirin (Aspirin) 81 mg DAILY PEG Last administered on 06/24/19 08:22; Admin Dose 81 MG; Start 06/11/19 at 09:00 Heparin Sodium (Porcine) (Heparin (5000 Units/1ml)) 5,000 unit Q8 SC Last administered on 06/14/19at 06:01; Admin Dose 5,000 UNIT; Start 06/11/19 at 14:00; Status Hold Ipratropium [place] (Atrovent 0.02% (Neb)) 0.5 mg Q4H RESP THERAPY PRN HHN SHORTNESS OF BREATH; Start 06/12/19 at 10:00 Levalbuterol (Xopenex Neb) 1.25 mg Q4H RESP THERAPY PRN HHN shortness of jose luis th; Start 06/12/19 at 10:00 Fentanyl 100 ml @ 2.5 mls/hr TITRATE IV Last administered on 06/24/19 02:34; Admin Dose 10 MLS/HR; Start 06/12/19 at 10:00 Phenylephrine HCl 80 mg/Dextrose 250 ml @ 18.75 mls/ hr TITRATE IV Last administered on 06/16/19 08:39; Admin Dose 15.1 MLS/HR; Start 06/12/19 at 14:00 Levalbuterol (Xopenex Hfa) 4 puff Q6H RESP THERAPY INH Last administered on 06/24/19 08:13; Admin Dose 4 PUFF; Start 06/12/19 at 20:00 Ipratropium [place] (Atrovent Hfa) 4 puff Q6H RESP THERAPY INH Last administered on 06/24/19 08:13; Admin Dose 4 PUFF; Start 06/12/19 at 20:00 Norepinephrine 32 mg/Dextrose 250 ml @ 0.47 mls/hr TITRATE IV Last administered on 06/18/19 23:09; Admin Dose 0.94 MLS/HR; Start 06/13/19 at 08:00 Meropenem/Sodium Chloride 50 ml @ 100 mls/hr Q12 IVPB Last administered on 06/24/19 08:22; Admin Dose 100 MLS/HR; Start 06/13/19 at 14:00 Docusate Sodium (Colace Liquid Cup) 100 mg BID GTB Last administered on 06/23/19 08:37; Admin Dose 100 MG; Start 06/14/19 at 12:30 Insulin Aspart (Novolog Insulin Pen) NOVOLOG *MILD* ALGORI... Q4 SC Last administered on 06/24/19 08:31; Admin Dose 2 UNIT; Start 06/16/19 at 21:00 Insulin Glargine (Lantus) 15 units DAILY@0800 SC Last administered on 06/24/19 08:54; Admin Dose 15 UNITS; Start 06/18/19 at 08:00 Caspofungin 50 mg/ Sodium Chloride 250 ml @ 250 mls/hr Q24H IVPB Last administered on 06/23/19 13:20; Admin Dose 250 MLS/HR; Start 06/18/19 at 13:00 Midazolam HCl 50 ml @ 1 mls/hr TITRATE IV Last administered on 06/18/19 09:43; Admin Dose 2 MLS/HR; Start 06/17/19 at 15:30 Hydrocortisone (Solu-Cortef) 50 mg Q8 IV Last administered on 06/24/19 05:41; Admin Dose 50 MG; Start 06/18/19 at 14:00 Propofol 100 ml @ 1.656 mls/ hr Q12H IV Last administered on 06/24/19 01:42; Admin Dose 8.28 MLS/HR; Start 06/18/19 at 10:00 Lactobacillus Acidophilus/ Rhamnosus (Culturelle) 1 cap TID PO Last adm inistered on 06/24/19 08:22; Admin Dose 1 CAP; Start 06/18/19 at 21:00 Potassium Chloride (Potassium Chloride Pwd/Soln) 20 meq PER PROTOCOL PRN PO POTASSIUM REPLACEMENT PROTOCOL; Start 06/21/19 at 09:30 Potassium Chloride (Potassium Chloride Pwd/Soln) 30 meq PER PROTOCOL PRN PO POTASSIUM REPLACEMENT PROTOCOL; Start 06/21/19 at 09:30 Potassium Chloride (Potassium Chloride Pwd/Soln) 40 meq PER PROTOCOL PRN PO POTASSIUM REPLACEMENT PROTOCOL Last administered on 06/22/19 09:09; Admin Dose 40 MEQ; Start 06/21/19 at 09:30 Bumetanide (Bumex) 1 mg BID DIURETICS IV Last administered on 06/24/19 05:41; Admin Dose 1 MG; Start 06/23/19 at 09:00 Vancomycin/Sodium Chloride 250 ml @ 125 mls/hr Q48H IVPB Last administered on 06/23/19 09:14; Admin Dose 125 MLS/HR; Start 06/23/19 at 09:00 Eye Lubricant (Artificial Tears Oph) 2 drop QID BOTH EYES Last administered on 06/24/19 08:24; Admin Dose 2 DROP; Start 06/23/19 at 09:30 Eye Lubricant (Akwa Oint) 1 applic Q6 BOTH EYES Last administered on 06/24/19 05:42; Admin Dose 1 APPLIC; Start 06/23/19 at 12:00 VTE Prophylaxis Risk score (from Nsg)>0 risk: 13 [place] [facility] [place]CD contraindication: other Lines/Catheters IV Catheter Type: Dorsey in Place: Yes Cont'd dorsey catheter reason: terminal illness/intractable pain Assessment/Plan Hospital Course Subjective Patient still intubated, sedated Objective Physical exam General: Patient is intubated, sedated Mentation: Patient is intubated and sedated Head: Normocephalic atraumatic Eyes: EOMI, pupils reactive to light Neck: Supple, nontender, midline Respiratory: Coarse to auscultation bilaterally Cardiovascular: Regular rate, no obvious murmurs Gastrointestinal: non-tender to palpation, bowel sounds heard. Neurological: Moves all extremities spontaneously to noxious stimuli Skin: No new skin lesions, PEG tube site present Assessment/Plan 1. Acute hypoxic respiratory failure, ARDS secondary to sepsis - CXR noted with increased congestion - cont bumex per nephro - Discussed with son done as family needs to decide on trach vs comfort care. Will discuss with siblings - Pulm on board and appreciate recommendations - wean down vent settings as able. Still on high fio2 req - Continue IV antibiotics per ID recommendations. 2. Multifocal pneumonia - Sputum cx noted with MRSA and Bridget - ID on board and appreciate recommendations 3. Hypokalemia - replace 4. Abdominal distension - KUB noted and US with small ascites - most likely secondary to anasarca. -Persistent, will order CT abdomen pelvis 5. Atrial fibrillation with RVR- resolved - back in sinus rhythm - Cardiology consultation appreciated 6. Non-ST elevated MN - Cardiology consultation appreciated and will continue current medications - Very mild elevation - continue aspirin and statin 7. Thrombocytopenia-improving - Very likely due to septic shock - Fibrinogen is elevated, unlikely DIC anemia -likely chronic diease as well as multiple lab draws -replete as needed. 8. Chronic dysphasia - Patient has PEG tube 9. Diabetes mellitus - continue on Lantus and ISS - sugars controlled 10. Chronic encephalopathy - CT of the brain initially showed alarming findings however there appears to be a mixup with patient's name, patient's actual name is Trey Roberts, [id number]. Neurosurgeon was initially consulted for possible brain bleed and other findings however when comparing to the patient's actual chart in 2013, neurosurgeon reviewed the CT and MRI and found a similar findings with no acute emergent change. - Monitor closely, patient appears to be at baseline 11. Dyslipidemia - Continue home meds 12. Mood disorder - Continue home meds 13. Chronic kidney disease - stable - nephrology consultation appreciated 14. Failure to thrive - now DNR per families request 15. Anasarca - cont bumex per nephro recs 16. Disposition - Continue monitoring in ICU while on vent support. family to decide trach vs comfort care. >35 minutes of critical care spent with patient at bedside. MALINI GOMEZ Jun 24, 2019 10:08
--- NOTE | 2019-06-24 13:39 | CONS ---
Assessment/Plan Assessment/Plan Assessment/Plan (Daily) 1. acute Hypernatremia due to severe dehydration -resolved 2. acute Hyperkalemia due to FLOYD - Resolved 3. acute kidney injury on CKD III due to ATN from sepsis and Prerenal azotemia 4 . Septic shock due to multifocal PNA and UTI 5. Acute hypoxic respiratory failure due to PNA and Septic shock - Failed BIPAP- Intubated on 06/12/19 , 6. H/O severe dementia 7. H/O HTN 8. H/O HL 9. SNF resident 10. acute on chronic encephalopathy 11 h/o Dysphagia S/p G tube placement 12. Hypocalcemia with Ca 6.7 13. UTI with Urine cx growing ESBL Klebsiella Plan: BUN/Cr 86/0.87,BUN improving, other electrolytes stable -Bumex 1 mg IV BID currenlty on IV abx meropenem for ESBL Klebsiella UTI, Sputum Cx grew Bridget Albicans and MRSA- pt is on IV cancidas, and IV vancomycin- Renally dose all abx and monitor electrolytes Ventilator Management as per pulmonary - still on high PEEP 12, FiO2 60% DNR code status Ca 8.2 today, will give calcium gluconate if Ca drops lwer than 7.0 will follow up Consultation Date/Type/Reason Admit Date/Time Jun 10, 2019 at 12:38 Initial Consult Date 06/11/19 Type of Consult NEPHROLOGY Requesting Provider: MALINI GOMEZ Date/Time of Note DATE: 06/24/19 TIME: 13:39 Exam/Review of Systems Exam Vitals Vital Signs Date Temp Pulse Resp B/P (MAP) Pulse Ox O2 O2 Flow FiO2 Time Delivery Rate 06/24/19 63 26 132/73 100 Mechanical 10:00 (92) Ventilator 06/24/19 100 08:03 06/24/19 98.1 08:00 Intake and Output 06/23/19 06/23/19 06/24/19 1515:00 23:00 07:00 IntakeIntake Total 1374 ml 704.835 ml 704.668 ml OutputOutput Total 290 ml 480 ml 250 ml BalanceBalance 1084 ml 224.835 ml 454.668 ml Exam General: intubated on ventilator HEENT: ET tube in place, NG tube Neck: Supple, + JVD , no LAD Respiratory: Bilateral coarse BS+, basilar wheezing Cardiovascular: S1 S2 tachycardia, no murmur Gastrointestinal: soft, NT, ND, Thin abdomen, BS+, + PEG tube in place Neurological: sedated intubated on ventilator Results Result Diagram: 06/24/1939906/24/19 0400 Results 24hrs Laboratory Tests Test 06/23/19 13:45 06/23/19 16:32 06/23/19 17:54 06/23/19 21:28 Bedside Glucose 194 180 187 170 Test 06/24/19 00:35 06/24/19 04:00 06/24/19 04:57 06/24/19 05:32 Bedside Glucose 189 175 White Blood 15.8 H Count Red Blood Count 2.49 #L Hemoglobin 7.9 #L Hematocrit 23.5 #L Mean Corpuscular 94.4 Volume Mean Corpuscular 31.7 Hemoglobin Mean Corpuscular 33.6 Hemoglobin Christina nt Red Cell 15.2 H Distribution Width Platelet Count 103 L Mean Platelet 12.0 H Volume Immature 1.400 H Granulocytes % Neutrophils % 93.3 H Lymphocytes % 2.2 L Monocytes % 3.0 Eosinophils % 0.0 Basophils % 0.1 Nucleated Red 0.0 Blood Cells % Immature 0.220 H Granulocytes # Neutrophils # 14.7 H Lymphocytes # 0.4 L Monocytes # 0.5 Eosinophils # 0.0 Basophils # 0.0 Nucleated Red 0.0 Blood Cells # Sodium Level 143 Potassium Level 3.6 Chloride Level 103 Carbon Dioxide 31 Level Anion Gap 9 Blood Urea 86 H Nitrogen Creatinine 0.87 Glucose Level 175 Calcium Level 8.2 L Phosphorus Level 4.5 Magnesium Level 2.2 Albumin 2.3 L Lab Scanned BLOOD TRANSFUSI Report ON Test 06/24/19 08:28 06/24/19 13:05 Bedside Glucose 212 Blood Gas Blood arterial Specimen Source Arterial Blood 06/24/2019 1:10: Date Drawn 38 PM Arterial Blood 7.477 H pH (Temp corrected) Arterial Blood 42.2 pCO2 (Temp correct) Arterial Blood 221.4 H pO2 (Temp corrected) Arterial Blood 30.5 H HCO3 Arterial Blood 6.4 H Base Excess Arterial Blood 98.8 Oxygen Saturatio n James Test ACCEPTAB Arterial Blood Right Radial Gas Puncture Site Arterial 0.3 Blood Carboxyhem oglobin Arterial Blood 0.4 Methemoglobin Blood Gas A-a O2 449.4 H Differential Oxyhemoglobin 98.1 Percent Blood Gas 37.0 Temperature Blood Gas 26.0 Respiration Rate Blood Gas Actual 26 Respiration Rate Blood Gas VENT - AC Modality FiO2 100.0 Blood Gas Tidal 400.0 Volume Blood Gas Low 14.0 PEEP Setting Blood Gas TM Notified Whom Blood Gas 06/24/2019 1:33: Notified Time 18 PM Medications Medication Current Medications IV Flush (NS 3 ml) 3 ml PER PROTOCOL IV ; Start 06/10/19 at 12:00 Ondansetron HCl (Zofran Inj) 4 mg Q6H PRN IV NAUSEA/VOMITING; Start 06/10/19 at 12:00 Acetaminophen (Tylenol Tab) 650 mg Q6H PRN PO .PAIN 1-3 OR TEMP Last administered on 06/13/19 15:52; Admin Dose 650 MG; Start 06/10/19 at 12:00 Acetaminophen/ Hydrocodone Bitart ([place] (5/325)) 1 tab Q6H PRN PO .PAIN 4-6; Start 06/10/19 at 12:00 Morphine Sulfate (morphine) 2 mg Q4H PRN IV .PAIN 7-10 Last administered on 06/15/19at 16:57; Admin Dose 2 MG; Start 06/10/19 at 12:00 Vancomycin HCl (Vanco Iv Per Pharmacy) VANCOMYCIN PER PHARMACY PER PROTOCOL XX ; Start 06/10/19 at 12:30 Amiodarone HCl (Cordarone) 100 mg DAILY GTB Last administered on 06/24/19 08:23; Admin Dose 100 MG; Start 06/11/19 at 09:00 Atorvastatin Calcium (Lipitor) 20 mg QHS GTB Last administered on 06/23/19 21:29; Admin Dose 20 MG; Start 06/10/19 at 21:00 Levetiracetam (Keppra Liquid) 500 mg BID GTB Last administered on 06/24/19 08:23; Admin Dose 500 MG; Start 06/10/19 at 21:00 Olanzapine (Zyprexa) 5 mg DAILY GTB Last administered on 06/24/19 08:26; Admin Dose 5 MG; Start 06/11/19 at 09:00 Polyethylene Glycol (Miralax) 17 gm DAILY GTB Last administered on 06/24/19 08:22; Admin Dose 17 GM; Start 06/11/19 at 09:00 Miscellaneous Information 1 ea NOTE XX ; Start 06/10/19 at 14:00 Glucose (Glutose) 15 gm Q15M PRN PO DECREASED GLUCOSE; Start 06/10/19 at 14:00 Glucose (Glutose) 22.5 gm Q15M PRN PO DECREASED GLUCOSE; Start 06/10/19 at 14:00 Dextrose (D50w Syringe) 25 ml Q15M PRN IV DECREASED GLUCOSE; Start 06/10/19 at 14:00 Dextrose (D50w Syringe) 50 ml Q15M PRN IV DECREASED GLUCOSE; Start 06/10/19 at 14:00 Glucagon (Glucagen) 1 mg Q15M PRN IM DECREASED GLUCOSE; Start 06/10/19 at 14:00 Glucose (Glutose) 15 gm Q15M PRN BUCCAL DECREASED GLUCOSE; Start 06/10/19 at 14:00 IV Flush (NS 10 ml) 10 ml [id number] PRN IV Line Patency; Start 06/10/19 at 16:00 Fluvoxamine Maleate (Fluvoxamine Maleate) 25 mg DAILY GTB Last administered on 06/24/19at 08:22; Admin Dose 25 MG; Start 06/11/19 at 09:00 Aspirin (Aspirin) 81 mg DAILY PEG Last administered on 06/24/19at 08:22; Admin Dose 81 MG; Start 06/11/19 at 09:00 Heparin Sodium (Porcine) (Heparin (5000 Units/1ml)) 5,000 unit Q8 SC Last administered on 06/14/19at 06:01; Admin Dose 5,000 UNIT; Start 06/11/19 at 14:00; Status Hold Ipratropium [place] (Atrovent 0.02% (Neb)) 0.5 mg Q4H RESP THERAPY PRN HHN SHORTNESS OF BREATH; Start 06/12/19 at 10:00 Levalbuterol (Xopenex Neb) 1.25 mg Q4H RESP THERAPY PRN HHN shortness of breath; Start 06/12/19 at 10:00 Fentanyl 100 ml @ 2.5 mls/hr TITRATE IV Last administered on 06/24/19at 13:31; Admin Dose 10 MLS/HR; Start 06/12/19 at 10:00 Phenylephrine HCl 80 mg/Dextrose 250 ml @ 18.75 mls/ hr TITRATE IV Last administered on 06/16/19 08:39; Admin Dose 15.1 MLS/HR; Start 06/12/19 at 14:00 Levalbuterol (Xopenex Hfa) 4 puff Q6H RESP THERAPY INH Last administered on 06/24/19 08:13; Admin Dose 4 PUFF; Start 06/12/19 at 20:00 Ipratropium [place] (Atrovent Hfa) 4 puff Q6H RESP THERAPY INH Last administered on 06/24/19 08:13; Admin Dose 4 PUFF; Start 06/12/19 at 20:00 Norepinephrine 32 mg/Dextrose 250 ml @ 0.47 mls/hr TITRATE IV Last administered on 06/18/19 23:09; Admin Dose 0.94 MLS/HR; Start 06/13/19 at 08:00 Meropenem/Sodium Chloride 50 ml @ 100 mls/hr Q12 IVPB Last administered on 06/24/19 08:22; Admin Dose 100 MLS/HR; Start 06/13/19 at 14:00 Docusate Sodium (Colace Liquid Cup) 100 mg BID GTB Last administered on 06/23/19 08:37; Admin Dose 100 MG; Start 06/14/19 at 12:30 Insulin Aspart (Novolog Insulin Pen) NOVOLOG *MILD* ALGORI... Q4 SC Last administered on 06/24/19 08:31; Admin Dose 2 UNIT; Start 06/16/19 at 21:00 Insulin Glargine (Lantus) 15 units DAILY@0800 SC Last administered on 06/24/19 08:54; Admin Dose 15 UNITS; Start 06/18/19 at 08:00 Caspofungin 50 mg/ Sodium Chloride 250 ml @ 250 mls/hr Q24H IVPB Last adm inistered on 06/23/19 13:20; Admin Dose 250 MLS/HR; Start 06/18/19 at 13:00 Midazolam HCl 50 ml @ 1 mls/hr TITRATE IV Last administered on 06/18/19 09:43; Admin Dose 2 MLS/HR; Start 06/17/19 at 15:30 Hydrocortisone (Solu-Cortef) 50 mg Q8 IV Last administered on 06/24/19 05:41; Admin Dose 50 MG; Start 06/18/19 at 14:00 Propofol 100 ml @ 1.656 mls/ hr Q12H IV Last administered on 06/24/19 01:42; Admin Dose 8.28 MLS/HR; Start 06/18/19 at 10:00 Lactobacillus Acidophilus/ Rhamnosus (Culturelle) 1 cap TID PO Last administered on 06/24/19 13:28; Admin Dose 1 CAP; Start 06/18/19 at 21:00 Potassium Chloride (Potassium Chloride Pwd/Soln) 20 meq PER PROTOCOL PRN PO POTASSIUM REPLACEMENT PROTOCOL; Start 06/21/19 at 09:30 Potassium Chloride (Potassium Chloride Pwd/Soln) 30 meq PER PROTOCOL PRN PO POTASSIUM REPLACEMENT PROTOCOL; Start 06/21/19 at 09:30 Potassium Chloride (Potassium Chloride Pwd/Soln) 40 meq PER PROTOCOL PRN PO POTASSIUM REPLACEMENT PROTOCOL Last administered on 06/22/19 09:09; Admin Dose 40 MEQ; Start 06/21/19 at 09:30 Bumetanide (Bumex) 1 mg BID DIURETICS IV Last administered on 06/24/19 05:41; Admin Dose 1 MG; Start 06/23/19 at 09:00 Vancomycin/Sodium Chloride 250 ml @ 125 mls/hr Q48H IVPB Last administered on 06/23/19 09:14; Admin Dose 125 MLS/HR; Start 06/23/19 at 09:00 Eye Lubricant (Artificial Tears Oph) 2 drop QID BOTH EYES Last administered on 06/24/19 13:27; Admin Dose 2 DROP; Start 06/23/19 at 09:30 Eye Lubricant (Akwa Oint) 1 applic Q6 BOTH EYES Last administered on 06/24/19 13:28; Admin Dose 1 APPLIC; Start 06/23/19 at 12:00 GERMAN FELIX MD Jun 24, 2019 13:39
[2019-06-24] MEDS: CASPOFUNGIN 50 MG in SOD CHLORIDE 0.9% 250 ML IVPB SCH (13:48)
--- NOTE | 2019-06-24 15:47 | PN ---
DATE: 06/24/2019 SUBJECTIVE: The patient remains unchanged. She is in no distress, afebrile. WBC today 15.8, platelets 103, neutrophils 93.3. BUN 86, creatinine 0.87. INDWELLINGS: Endotracheal tube, PEG, Dial, PICC line. PHYSICAL EXAMINATION: GENERAL: This is a chronically ill-appearing, wasted, elderly woman who is in no distress. HEENT: Head atraumatic, normocephalic. NECK: Supple. CHEST: Rise symmetrical. Breath sounds diminished to bases. HEART: S1, S2. ABDOMEN: Soft, bowel sounds present. EXTREMITIES: Bilateral edema. SKIN: With anasarca. ASSESSMENT: 1. Sepsis, status post shock. 2. Acute on chronic respiratory failure. 3. Pneumonia. 4. Acute respiratory distress syndrome. 5. Escherichia coli extended-spectrum beta-lactamase urinary tract infection. 6. Atrial fibrillation and non-ST elevation myocardial infarction. PLAN: The patient is doing poorly. She is DNR status. Pulmonary follows and managing her vent sett ings. She is completing antibiotic course. Dictated By: JACKIE CORTÉS [employer] for LARISSA FARAH MD NI/NTS Conf#: [id number] DID#: [id number] CC: MALINI GOMEZ MD;*EndCC*
[2019-06-24] MEDS: POTASSIUM CHLORIDE 20 MEQ POWDER FOR ORAL SOLN GTB PRN (16:02)
[2019-06-24] MEDS: ATORVASTATIN 20 MG TAB GTB SCH (21:43)
[2019-06-25] VITALS (54 sets, daily range): BP systolic 104–139; BP diastolic 55–115; PULSE 59–79; RESP 17–26
[2019-06-25] MEDS: OCULAR LUBRICANT 3.5 GM OPH OINT BOTH EYES SCH ×4 (00:31→17:00)
[2019-06-25] MEDS: INSULIN ASPART [NOVOLOG] 3 ML PEN SC SCH ×6 (00:34→20:33)
[2019-06-25] MEDS: PROPOFOL 100 ML IV SCH ×3 (01:22→18:26)
[2019-06-25] MEDS: LEVALBUTEROL (HFA) 15 GM INHALER INH SCH ×4 (01:43→19:41)
[2019-06-25] MEDS: IPRATROPIUM (HFA) 12.9 GM INHALER INH SCH ×4 (01:43→19:41)
[2019-06-25] MEDS: BUMETANIDE 1 MG INJ IV SCH ×2 (05:12→17:00)
[2019-06-25] MEDS: HYDROCORTISONE 100 MG INJ IV SCH ×3 (05:12→21:40)
--- NOTE | 2019-06-25 06:02 | CONS ---
Assessment/Plan Assessment/Plan Assessment/Plan (Daily) Asked to see this 84-year-old female who is in the intensive care unit [facility] admitted with respiratory failure, ARDS and sepsis syndrome. Patient is extremely ill she is intubated and has a G-tube placed prior to this hospitalization. Pain was treated aggressively with IV antibiotics she is been seen by infectious disease consultation and pulmonary medicine. Following her medical record she has a multifocal pneumonia history of atrial fibrillation with RVR, non-ST myocardial infarction, failure to thrive anasarca and encephalopathy. I am asked to see patient to speak to family member in palliative care consultation is family members will need to decide upon permanent trach or not. As I understand from Dr. Lainez 2 brothers and sister are very much involved with ongoing care decision making. On June 24, 2019 I reached out to patient's son Bob and asked if we can set up an appointment in the family conference with all 3 siblings. He did tell me his sister is back from vacation and she is available. However he made it very clear that he has been in contact with Dr. Lainez and Dr. Gonzalez and gave me the clear impression that he did not want to discuss it once again. He was pleasant but said he and other family members are thinking about the next step but at this time they do not want to change level of care I do not want to think about whether not patient should be trached yet. I did tell him that his mother has been intubated for almost 2 weeks and decision needs to be made for trach or not. I told him that even if she is trach that was to have options at some later date to discontinue care in the event that she does not improve significantly which I think would probably be the case Explained the chronicity of her medical problems and her underlying encephalopathy/dementia. He also made very clear that his sister has a strong will and that there may be some differences between them insofar his goals of care. At the end of the conversat ion he would not commit himself to a family conference I gave him my phone number I have asked him to call me or Dr. Lainez at any time. Consultation Date/Type/Reason Admit Date/Time Jun 10, 2019 at 12:38 Date/Time of Note DATE: 06/25/19 TIME: 06:02 Past Medical History Medical History: high cholesterol, hypertension, other (Dementia, Atrial fibrillation ) Home Meds Reported Medications Pantoprazole* (Protonix*) 40 Mg Tablet.dr, 40 MG PO DAILY, TAB 09/03/14 Donepezil* (Aricept*) 5 Mg Tablet, 5 MG PO DAILY, TAB 09/03/14 Atorvastatin Calcium* (Atorvastatin Calcium*) 20 Mg Tablet, 20 MG PO HS, TAB 09/03/14 Saxagliptin Hcl/Metformin Hcl (KOMBIGLYZE XR 5-500 MG TABLET) 1 Each Tbmp.24hr, 1 EACH PO DAILY 09/03/14 Medications Current Medications IV Flush (NS 3 ml) 3 ml PER PROTOCOL IV ; Start 06/10/19 at 12:00 Ondansetron HCl (Zofran Inj) 4 mg Q6H PRN IV NAUSEA/VOMITING; Start 06/10/19 at 12:00 Acetaminophen (Tylenol Tab) 650 mg Q6H PRN PO .PAIN 1-3 OR TEMP Last administered on 06/13/19at 15:52; Admin Dose 650 MG; Start 06/10/19 at 12:00 Acetaminophen/ Hydrocodone Bitart ([place] (5/325)) 1 tab Q6H PRN PO .PAIN 4-6; Start 06/10/19 at 12:00 Morphine Sulfate (morphine) 2 mg Q4H PRN IV .PAIN 7-10 Last administered on 06/15/19at 16:57; Admin Dose 2 MG; Start 06/10/19 at 12:00 Vancomycin HCl (Vanco Iv Per Pharmacy) VANCOMYCIN PER PHARMACY PER PROTOCOL XX ; Start 06/10/19 at 12:30 Amiodarone HCl (Cordarone) 100 mg DAILY GTB Last administered on 06/24/19at 08:23; Admin Dose 100 MG; Start 06/11/19 at 09:00 Atorvastatin Calcium (Lipitor) 20 mg QHS GTB Last administered on 06/24/19 21:43; Admin Dose 20 MG; Start 06/10/19 at 21:00 Levetiracetam (Keppra Liquid) 500 mg BID GTB Last administered on 06/24/19 22:04; Admin Dose 500 MG; Start 06/10/19 at 21:00 Olanzapine (Zyprexa) 5 mg DAILY GTB Last administered on 06/24/19 08:26; Admin Dose 5 MG; Start 06/11/19 at 09:00 Polyethylene Glycol (Miralax) 17 gm DAILY GTB Last administered on 06/24/19at 08:22; Admin Dose 17 GM; Start 06/11/19 at 09:00 Miscellaneous Information 1 ea NOTE XX ; Start 06/10/19 at 14:00 Glucose (Glutose) 15 gm Q15M PRN PO DECREASED GLUCOSE; Start 06/10/19 at 14:00 Glucose (Glutose) 22.5 gm Q15M PRN PO DECREASED GLUCOSE; Start 06/10/19 at 14:00 Dextrose (D50w Syringe) 25 ml Q15M PRN IV DECREASED GLUCOSE; Start 06/10/19 at 14:00 Dextrose (D50w Syringe) 50 ml Q15M PRN IV DECREASED GLUCOSE; Start 06/10/19 at 14:00 Glucagon (Glucagen) 1 mg Q15M PRN IM DECREASED GLUCOSE; Start 06/10/19 at 14:00 Glucose (Glutose) 15 gm Q15M PRN BUCCAL DECREASED GLUCOSE; Start 06/10/19 at 14:00 IV Flush (NS 10 ml) 10 ml [id number] PRN IV Line Patency; Start 06/10/19 at 16:00 Fluvoxamine Maleate (Fluvoxamine Maleate) 25 mg DAILY GTB Last administered on 06/24/19at 08:22; Admin Dose 25 MG; Start 06/11/19 at 09:00 Aspirin (Aspirin) 81 mg DAILY PEG Last administered on 06/24/19at 08:22; Admin Dose 81 MG; Start 06/11/19 at 09:00 Heparin Sodium (Porcine) (Heparin (5000 Units/1ml)) 5,000 unit Q8 SC Last administered on 06/14/19at 06:01; Admin Dose 5,000 UNIT; Start 06/11/19 at 14:00; Status Hold Ipratropium [place] (Atrovent 0.02% (Neb)) 0.5 mg Q4H RESP THERAPY PRN HHN SHORTNESS OF BREATH; Start 06/12/19 at 10:00 Levalbuterol (Xopenex Neb) 1.25 mg Q4H RESP THERAPY PRN HHN shortness of breath; Start 06/12/19 at 10:00 Fentanyl 100 ml @ 2.5 mls/hr TITRATE IV Last administered on 7/30/19at 21:55; Admin Dose 10 MLS/HR; Start 06/12/19 at 10:00 Phenylephrine HCl 80 mg/Dextrose 250 ml @ 18.75 mls/ hr TITRATE IV Last administered on 06/16/19 08:39; Admin Dose 15.1 MLS/HR; Start 06/12/19 at 14:00 Levalbuterol (Xopenex Hfa) 4 puff Q6H RESP THERAPY INH Last administered on 06/25/19 01:43; Admin Dose 4 PUFF; Start 06/12/19 at 20:00 Ipratropium [place] (Atrovent Hfa) 4 puff Q6H RESP THERAPY INH Last administered on 06/25/19 01:43; Admin Dose 4 PUFF; Start 06/12/19 at 20:00 Norepinephrine 32 mg/Dextrose 250 ml @ 0.47 mls/hr TITRATE IV Last administered on 06/18/19 23:09; Admin Dose 0.94 MLS/HR; Start 06/13/19 at 08:00 Meropenem/Sodium Chloride 50 ml @ 100 mls/hr Q12 IVPB Last administered on 06/24/19 21:43; Admin Dose 100 MLS/HR; Start 06/13/19 at 14:00 Docusate Sodium (Colace Liquid Cup) 100 mg BID GTB Last administered on 06/23/19 08:37; Admin Dose 100 MG; Start 06/14/19 at 12:30 Insulin Aspart (Novolog Insulin Pen) NOVOLOG *MILD* ALGORI... Q4 SC Last administered on 06/25/19 05:26; Admin Dose 2 UNIT; Start 06/16/19 at 21:00 Insulin Glargine (Lantus) 15 units DAILY@0800 SC Last administered on 06/24/19 08:54; Admin Dose 15 UNITS; Start 06/18/19 at 08:00 Caspofungin 50 mg/ Sodium Chloride 250 ml @ 250 mls/hr Q24H IVPB Last administered on 06/24/19 13:48; Admin Dose 250 MLS/HR; Start 06/18/19 at 13:00 Midazolam HCl 50 ml @ 1 mls/hr TITRATE IV Last administered on 06/18/19 09:43; Admin Dose 2 MLS/HR; Start 06/17/19 at 15:30 Hydrocortisone (Solu-Cortef) 50 mg Q8 IV Last administered on 06/25/19 05:12; Admin Dose 50 MG; Start 06/18/19 at 14:00 Propofol 100 ml @ 1.656 mls/ hr Q12H IV Last administered on 06/25/19 01:22; Admin Dose 11.592 MLS/HR; Start 06/18/19 at 10:00 Lactobacillus Acidophilus/ Rhamnosus (Culturelle) 1 cap TID PO Last adminis tered on 06/24/19 21:43; Admin Dose 1 CAP; Start 06/18/19 at 21:00 Bumetanide (Bumex) 1 mg BID DIURETICS IV Last administered on 06/25/19 05:12; Admin Dose 1 MG; Start 06/23/19 at 09:00 Vancomycin/Sodium Chloride 250 ml @ 125 mls/hr Q48H IVPB Last administered on 06/23/19 09:14; Admin Dose 125 MLS/HR; Start 06/23/19 at 09:00 Eye Lubricant (Artificial Tears Oph) 2 drop QID BOTH EYES Last administered on 06/24/19 21:39; Admin Dose 2 DROP; Start 06/23/19 at 09:30 Eye Lubricant (Akwa Oint) 1 applic Q6 BOTH EYES Last administered on 06/25/19 05:12; Admin Dose 1 APPLIC; Start 06/23/19 at 12:00 Potassium Chloride (Potassium Chloride Pwd/Soln) 20 meq PER PROTOCOL PRN GTB POTASSIUM REPLACEMENT PROTOCOL; Start 06/21/19 at 09:30 Potassium Chloride (Potassium Chloride Pwd/Soln) 30 meq PER PROTOCOL PRN GTB POTASSIUM REPLACEMENT PROTOCOL Last administered on 06/24/19 16:02; Admin Dose 30 MEQ; Start 06/21/19 at 09:30 Potassium Chloride (Potassium Chloride Pwd/Soln) 40 meq PER PROTOCOL PRN GTB POTASSIUM REPLACEMENT PROTOCOL; Start 06/21/19 at 09:30 Allergies: Coded Allergies: No Known Allergy (Verified , 09/10/14) Past Surgical History Past Surgical Hx: other (not available ) Social History Alcohol Use: none Smoking Status: Unknown if ever smoked Drug Use: none Exam/Review of Systems Exam Vitals Vital Signs Date Temp Pulse Resp B/P (MAP) Pulse Ox O2 O2 Flow FiO2 Time Delivery Rate 06/25/19 64 26 94 60 05:21 06/25/19 105/62 Mechanical 04:30 (76) Ventilator 06/25/19 98.7 04:00 Intake and Output 06/24/19 06/24/19 06/25/19 1515:00 23:00 07:00 IntakeIntake Total 594.84 ml 455 ml 350 ml OutputOutput Total 230 ml 460 ml 360 ml BalanceBalance 364.84 ml -5 ml -10 ml Results Result Diagram: 06/25/19 0400 06/25/19 0400 Results 24hrs Laboratory Tests Test 06/24/19 08:28 06/24/19 13:05 06/24/19 13:47 06/24/19 17:53 Bedside Glucose 212 185 123 Blood Gas Blood arterial Specimen Source Arterial Blood 06/24/2019 1:10:3 Date Drawn 8 PM Arterial Blood pH 7.477 H (Temp corrected) Arterial Blood 42.2 pCO2 (Temp correct) Arterial Blood 221.4 H pO2 (Temp corrected) Arterial Blood 30.5 H HCO3 Arterial Blood 6.4 H Base Excess Arterial Blood 98.8 Oxygen Saturation James Test ACCEPTAB Arterial Blood Right Radial Gas Puncture Site Arterial 0.3 Blood Carboxyhemo globin Arterial Blood 0.4 Methemoglobin Blood Gas A-a O2 449.4 H Differential Oxyhemoglobin 98.1 Percent Blood Gas 37.0 Temperature Blood Gas 26.0 Respiration Rate Blood Gas Actual 26 Respiration Rate Blood Gas VENT - AC Modality FiO2 100.0 Blood Gas Tidal 400.0 Volume Blood Gas Low 14.0 PEEP Setting Blood Gas TM Notified Whom Blood Gas 06/24/2019 1:33:1 Notified Time 8 PM Test 06/24/19 21:38 06/25/19 00:30 06/25/19 04:00 06/25/19 05:11 Bedside Glucose 149 141 186 White Blood Count 16.6 H Red Blood Count 2.57 L Hemoglobin 8.2 L Hematocrit 24.1 L Mean Corpuscular 93.8 Volume Mean Corpuscular 31.9 Hemoglobin Mean Corpuscular 34.0 Hemoglobin Concen t Red Cell 14.9 H Distribution Width Platelet Count 117 L Mean Platelet 11.5 H Volume Immature 1.100 H Granulocytes % Neutrophils % 93.8 H Lymphocytes % 2.2 L Monocytes % 2.8 Eosinophils % 0.0 Basophils % 0.1 Nucleated Red 0.0 Blood Cells % Immature 0.190 H Granulocytes # Neutrophils # 15.5 H Lymphocytes # 0.4 L Monocytes # 0.5 Eosinophils # 0.0 Basophils # 0.0 Nucleated Red 0.0 Blood Cells # Sodium Level 142 Potassium Level 3.8 Chloride Level 104 Carbon Dioxide 33 H Level Anion Gap 5 Blood Urea 96 H Nitrogen Creatinine 0.95 Est Glomerular Filtrat Rate mL/min Glucose Level 149 Calcium Level 8.1 L Phosphorus Level 4.5 Magnesium Level 2.2 Medications Medication Current Medications IV Flush (NS 3 ml) 3 ml PER PROTOCOL IV ; Start 06/10/19 at 12:00 Ondansetron HCl (Zofran Inj) 4 mg Q6H PRN IV NAUSEA/VOMITING; Start 06/10/19 at 12:00 Acetaminophen (Tylenol Tab) 650 mg Q6H PRN PO .PAIN 1-3 OR TEMP Last administered on 06/13/19at 15:52; Admin Dose 650 MG; Start 06/10/19 at 12:00 Acetaminophen/ Hydrocodone Bitart ([place] (5/325)) 1 tab Q6H PRN PO .PAIN 4-6; Start 06/10/19 at 12:00 Morphine Sulfate (morphine) 2 mg Q4H PRN IV .PAIN 7-10 Last administered on 06/15/19at 16:57; Admin Dose 2 MG; Start 06/10/19 at 12:00 Vancomycin HCl (Vanco Iv Per Pharmacy) VANCOMYCIN PER PHARMACY PER PROTOCOL XX ; Start 06/10/19 at 12:30 Amiodarone HCl (Cordarone) 100 mg DAILY GTB Last administered on 06/24/19 08:23; Admin Dose 100 MG; Start 06/11/19 at 09:00 Atorvastatin Calcium (Lipitor) 20 mg QHS GTB Last administered on 06/24/19 21:43; Admin Dose 20 MG; Start 06/10/19 at 21:00 Levetiracetam (Keppra Liquid) 500 mg BID GTB Last administered on 06/24/19 22:04; Admin Dose 500 MG; Start 06/10/19 at 21:00 Olanzapine (Zyprexa) 5 mg DAILY GTB Last administered on 06/24/19 08:26; Admin Dose 5 MG; Start 06/11/19 at 09:00 Polyethylene Glycol (Miralax) 17 gm DAILY GTB Last administered on 06/24/19at 08:22; Admin Dose 17 GM; Start 06/11/19 at 09:00 Miscellaneous Information 1 ea NOTE XX ; Start 06/10/19 at 14:00 Glucose (Glutose) 15 gm Q15M PRN PO DECREASED GLUCOSE; Start 06/10/19 at 14:00 Glucose (Glutose) 22.5 gm Q15M PRN PO DECREASED GLUCOSE; Start 06/10/19 at 14:00 Dextrose (D50w Syringe) 25 ml Q15M PRN IV DECREASED GLUCOSE; Start 06/10/19 at 14:00 Dextrose (D50w Syringe) 50 ml Q15M PRN IV DECREASED GLUCOSE; Start 06/10/19 at 14:00 Glucagon (Glucagen) 1 mg Q15M PRN IM DECREASED GLUCOSE; Start 06/10/19 at 14:00 Glucose (Glutose) 15 gm Q15M PRN BUCCAL DECREASED GLUCOSE; Start 06/10/19 at 14:00 IV Flush (NS 10 ml) 10 ml [id number] PRN IV Line Patency; Start 06/10/19 at 16:00 Fluvoxamine Maleate (Fluvoxamine Maleate) 25 mg DAILY GTB Last administered on 06/24/19at 08:22; Admin Dose 25 MG; Start 06/11/19 at 09:00 Aspirin (Aspirin) 81 mg DAILY PEG Last administered on 06/24/19at 08:22; Admin Dose 81 MG; Start 06/11/19 at 09:00 Heparin Sodium (Porcine) (Heparin (5000 Units/1ml)) 5,000 unit Q8 SC Last administered on 06/14/19at 06:01; Admin Dose 5,000 UNIT; Start 06/11/19 at 14:00; Status Hold Ipratropium [place] (Atrovent 0.02% (Neb)) 0.5 mg Q4H RESP THERAPY PRN HHN SHORTNESS OF BREATH; Start 06/12/19 at 10:00 Levalbuterol (Xopenex Neb) 1.25 mg Q4H RESP THERAPY PRN HHN shortness of breath; Start 06/12/19 at 10:00 Fentanyl 100 ml @ 2.5 mls/hr TITRATE IV Last administered on 06/24/19 21:55; Admin Dose 10 MLS/HR; Start 06/12/19 at 10:00 Phenylephrine HCl 80 mg/Dextrose 250 ml @ 18.75 mls/ hr TITRATE IV Last administered on 06/16/19 08:39; Admin Dose 15.1 MLS/HR; Start 06/12/19 at 14:00 Levalbuterol (Xopenex Hfa) 4 puff Q6H RESP THERAPY INH Last administered on 06/25/19 01:43; Admin Dose 4 PUFF; Start 06/12/19 at 20:00 Ipratropium [place] (Atrovent Hfa) 4 puff Q6H RESP THERAPY INH Last administered on 06/25/19 01:43; Admin Dose 4 PUFF; Start 06/12/19 at 20:00 Norepinephrine 32 mg/Dextrose 250 ml @ 0.47 mls/hr TITRATE IV Last administered on 06/18/19 23:09; Admin Dose 0.94 MLS/HR; Start 06/13/19 at 08:00 Meropenem/Sodium Chloride 50 ml @ 100 mls/hr Q12 IVPB Last administered on 06/24/19 21:43; Admin Dose 100 MLS/HR; Start 06/13/19 at 14:00 Docusate Sodium (Colace Liquid Cup) 100 mg BID GTB Last administered on 06/23/19 08:37; Admin Dose 100 MG; Start 06/14/19 at 12:30 Insulin Aspart (Novolog Insulin Pen) NOVOLOG *MILD* ALGORI... Q4 SC Last administered on 06/25/19 05:26; Admin Dose 2 UNIT; Start 06/16/19 at 21:00 Insulin Glargine (Lantus) 15 units DAILY@0800 SC Last administered on 06/24/19 08:54; Admin Dose 15 UNITS; Start 06/18/19 at 08:00 Caspofungin 50 mg/ Sodium Chloride 250 ml @ 250 mls/hr Q24H IVPB Last administered on 06/24/19 13:48; Admin Dose 250 MLS/HR; Start 06/18/19 at 13:00 Midazolam HCl 50 ml @ 1 mls/hr TITRATE IV Last administered on 06/18/19 09:43; Admin Dose 2 MLS/HR; Start 06/17/19 at 15:30 Hydrocortisone (Solu-Cortef) 50 mg Q8 IV Last administered on 06/25/19 05:12; Admin Dose 50 MG; Start 06/18/19 at 14:00 Propofol 100 ml @ 1.656 mls/ hr Q12H IV Last administered on 06/25/19 01:22; Admin Dose 11.592 MLS/HR; Start 06/18/19 at 10:00 Lactobacillus Acidophilus/ Rhamnosus (Culturelle) 1 cap TID PO Last administered on 06/24/19 21:43; Admin Dose 1 CAP; Start 06/18/19 at 21:00 Bumetanide (Bumex) 1 mg BID DIURETICS IV Last administered on 06/25/19 05:12; Admin Dose 1 MG; Start 06/23/19 at 09:00 Vancomycin/Sodium Chloride 250 ml @ 125 mls/hr Q48H IVPB Last administered on 06/23/19 09:14; Admin Dose 125 MLS/HR; Start 06/23/19 at 09:00 Eye Lubricant (Artificial Tears Oph) 2 drop QID BOTH EYES Last administered on 06/24/19 21:39; Admin Dose 2 DROP; Start 06/23/19 at 09:30 Eye Lubricant (Akwa Oint) 1 applic Q6 BOTH EYES Last administered on 06/25/19 05:12; Admin Dose 1 APPLIC; Start 06/23/19 at 12:00 Potassium Chloride (Potassium Chloride Pwd/Soln) 20 meq PER PROTOCOL PRN GTB POTASSIUM REPLACEMENT PROTOCOL; Start 06/21/19 at 09:30 Potassium Chloride (Potassium Chloride Pwd/Soln) 30 meq PER PROTOCOL PRN GTB POTASSIUM REPLACEMENT PROTOCOL Last administered on 06/24/19 16:02; Admin Dose 30 MEQ; Start 06/21/19 at 09:30 Potassium Chloride (Potassium Chloride Pwd/Soln) 40 meq PER PROTOCOL PRN GTB POTASSIUM REPLACEMENT PROTOCOL; Start 06/21/19 at 09:30 NANCY BANKS Jun 25, 2019 06:02
[2019-06-25] MEDS: FENTAnyl (DRIP) 1000 mcg/100mL 100 ML IV SCH ×2 (07:04→15:58)
--- NOTE | 2019-06-25 08:36 | CONS ---
Assessment/Plan Assessment/Plan Assessment/Plan (Daily) Chest x-ray showing ARDS pattern with diffuse bilateral infiltrative changes. Ventilator setting; assist control of 26, tidal volume 400, PEEP of 12, 60% FiO2. Patient is currently on fentanyl 100 mics per hour, propofol 35 mics per kilogram per minute. Assessment and recommendations; 1. Patient admitted with respiratory failure due to severe bilateral pneumonia with ARDS. 2. Likely underlying advanced dementia. 3. Chronic dysphagia, status post G-tube placement in the past. 4. Anemia and thrombocytopenia. 5. Generalized anasarca. Continue current supportive care. Obtain follow-up ABG. Patient's family to decide about possible palliative care. Prognosis appears extremely poor. Consultation Date/Type/Reason Admit Date/Time Jun 10, 2019 at 12:38 Initial Consult Date 06/11/19 Type of Consult Pulmonary/critical care Patient is an 84-year-old [place] lady who was transferred to to the hospital from alf with hypoxemia. Upon evaluation patient is been diagnosed with sepsis due to pneumonia. Patient has advanced dementia and is unable to give any history by herself whatsoever. Patient however is appearing tachypneic. Past medical history; 1. History of chronic atrial fibrillation. 2. Advanced dementia. 3. History of G-tube placement. 4. History of diabetes. 5. History of hypertension. Medications; reviewed. Allergies; none. Social history, family history, occupational history is are not available. Review of systems; unable to be obtained. General exam; elderly woman, on BiPAP. Noncommunicative. Tachypneic. Requesting Provider: MALINI GOMEZ Date/Time of Note DATE: 06/25/19 TIME: 08:34 24 HR Interval Summary Free Text/Dictation Patient's condition is critical. Remains persistently hypoxemic. General exam; elderly woman, orally intubated, sedated, currently in no distress. Exam/Review of Systems Exam Vitals Vital Signs Date Temp Pulse Resp B/P (MAP) Pulse Ox O2 O2 Flow FiO2 Time Delivery Rate 06/25/19 64 26 94 60 05:21 06/25/19 105/62 Mechanical 04:30 (76) Ventilator 06/25/19 98.7 04:00 Intake and Output 06/24/19 06/24/19 06/25/19 1515:00 23:00 07:00 IntakeIntake Total 594.84 ml 596.40 ml 512.736 ml OutputOutput Total 230 ml 460 ml 360 ml BalanceBalance 364.84 ml 136.40 ml 152.736 ml Exam H EENT exam; supple neck, no JVD. No lymphadenopathy. Midline trachea. No thyromegaly. Orally intubated. Patient has multiple carious teeth. Chest exam; diminished breath sounds bilaterally with bilateral crackles. S1-S2 audible, no murmurs. Regular rhythm. Abdomen exam; soft, no organomegaly. G-tube in place. Bowel sounds are audible. Extremity exam; 2+ generalized anasarca with patchy ecchymosis. [employer] exam; patient is sedated. Results Result Diagram: 06/25/19 0400 06/25/19 0400 Results 24hrs Laboratory Tests Test 06/24/19 13:05 06/24/19 13:47 06/24/19 17:53 06/24/19 21:38 Blood Gas Blood arterial Specimen Source Arterial Blood 06/24/2019 1:10:3 Date Drawn 8 PM Arterial Blood pH 7.477 H (Temp corrected) Arterial Blood 42.2 pCO2 (Temp correct) Arterial Blood 221.4 H pO2 (Temp corrected) Arterial Blood 30.5 H HCO3 Arterial Blood 6.4 H Base Excess Arterial Blood 98.8 Oxygen Saturation James Test ACCEPTAB Arterial Blood Right Radial Gas Puncture Site Arterial 0.3 Blood Carboxyhemo globin Arterial Blood 0.4 Methemoglobin Blood Gas A-a O2 449.4 H Differential Oxyhemoglobin 98.1 Percent Blood Gas 37.0 Temperature Blood Gas 26.0 Respiration Rate Blood Gas Actual 26 Respiration Rate Blood Gas VENT - AC Modality FiO2 100.0 Blood Gas Tidal 400.0 Volume Blood Gas Low 14.0 PEEP Setting Blood Gas TM Notified Whom Blood Gas 06/24/2019 1:33:1 Notified Time 8 PM Bedside Glucose 185 123 149 Test 06/25/19 00:30 06/25/19 04:00 06/25/19 05:11 Bedside Glucose 141 186 White Blood Count 16.6 H Red Blood Count 2.57 L Hemoglobin 8.2 L Hematocrit 24.1 L Mean Corpuscular 93.8 Volume Mean Corpuscular 31.9 Hemoglobin Mean Corpuscular 34.0 Hemoglobin Concen t Red Cell 14.9 H Distribution Width Platelet Count 117 L Mean Platelet 11.5 H Volume Immature 1.100 H Granulocytes % Neutrophils % 93.8 H Lymphocytes % 2.2 L Monocytes % 2.8 Eosinophils % 0.0 Basophils % 0.1 Nucleated Red 0.0 Blood Cells % Immature 0.190 H Granulocytes # Neutrophils # 15.5 H Lymphocytes # 0.4 L Monocytes # 0.5 Eosinophils # 0.0 Basophils # 0.0 Nucleated Red 0.0 Blood Cells # Sodium Level 142 Potassium Level 3.8 Chloride Level 104 Carbon Dioxide 33 H Level Anion Gap 5 Blood Urea 96 H Nitrogen Creatinine 0.95 Est Glomerular Filtrat Rate mL/min Glucose Level 149 Calcium Level 8.1 L Phosphorus Level 4.5 Magnesium Level 2.2 Medications Medication Current Medications IV Flush (NS 3 ml) 3 ml PER PROTOCOL IV ; Start 06/10/19 at 12:00 Ondansetron HCl (Zofran Inj) 4 mg Q6H PRN IV NAUSEA/VOMITING; Start 06/10/19 at 12:00 Acetaminophen (Tylenol Tab) 650 mg Q6H PRN PO .PAIN 1-3 OR TEMP Last administered on 06/13/19at 15:52; Admin Dose 650 MG; Start 06/10/19 at 12:00 Acetaminophen/ Hydrocodone Bitart ([place] (5/325)) 1 tab Q6H PRN PO .PAIN 4-6; Start 06/10/19 at 12:00 Morphine Sulfate (morphine) 2 mg Q4H PRN IV .PAIN 7-10 Last administered on 06/15/19at 16:57; Admin Dose 2 MG; Start 06/10/19 at 12:00 Vancomycin HCl (Vanco Iv Per Pharmacy) VANCOMYCIN PER PHARMACY PER PROTOCOL XX ; Start 06/10/19 at 12:30 Amiodarone HCl (Cordarone) 100 mg DAILY GTB Last administered on 06/24/19 08:23; Admin Dose 100 MG; Start 06/11/19 at 09:00 Atorvastatin Calcium (Lipitor) 20 mg QHS GTB Last administered on 06/24/19at 21:43; Admin Dose 20 MG; Start 06/10/19 at 21:00 Levetiracetam (Keppra Liquid) 500 mg BID GTB Last administered on 06/24/19at 22:04; Admin Dose 500 MG; Start 06/10/19 at 21:00 Olanzapine (Zyprexa) 5 mg DAILY GTB Last administered on 06/24/19 08:26; Admin Dose 5 MG; Start 06/11/19 at 09:00 Polyethylene Glycol (Miralax) 17 gm DAILY GTB Last administered on 06/24/19 08:22; Admin Dose 17 GM; Start 06/11/19 at 09:00 Miscellaneous Information 1 ea NOTE XX ; Start 06/10/19 at 14:00 Glucose (Glutose) 15 gm Q15M PRN PO DECREASED GLUCOSE; Start 06/10/19 at 14:00 Glucose (Glutose) 22.5 gm Q15M PRN PO DECREASED GLUCOSE; Start 06/10/19 at 14:00 Dextrose (D50w Syringe) 25 ml Q15M PRN IV DECREASED GLUCOSE; Start 06/10/19 at 14:00 Dextrose (D50w Syringe) 50 ml Q15M PRN IV DECREASED GLUCOSE; Start 06/10/19 at 14:00 Glucagon (Glucagen) 1 mg Q15M PRN IM DECREASED GLUCOSE; Start 06/10/19 at 14:00 Glucose (Glutose) 15 gm Q15M PRN BUCCAL DECREASED GLUCOSE; Start 06/10/19 at 14:00 IV Flush (NS 10 ml) 10 ml [id number] PRN IV Line Patency; Start 06/10/19 at 16:00 Fluvoxamine Maleate (Fluvoxamine Maleate) 25 mg DAILY GTB Last administered on 06/24/19at 08:22; Admin Dose 25 MG; Start 06/11/19 at 09:00 Aspirin (Aspirin) 81 mg DAILY PEG Last administered on 06/24/19 08:22; Admin Dose 81 MG; Start 06/11/19 at 09:00 Heparin Sodium (Porcine) (Heparin (5000 Units/1ml)) 5,000 unit Q8 SC Last administered on 06/14/19at 06:01; Admin Dose 5,000 UNIT; Start 06/11/19 at 14:00; Status Hold Ipratropium [place] (Atrovent 0.02% (Neb)) 0.5 mg Q4H RESP THERAPY PRN HHN SHORTNESS OF BREATH; Start 06/12/19 at 10:00 Levalbuterol (Xopenex Neb) 1.25 mg Q4H RESP THERAPY PRN HHN shortness of breath; Start 06/12/19 at 10:00 Fentanyl 100 ml @ 2.5 mls/hr TITRATE IV Last administered on 06/25/19 07:04; Admin Dose 10 MLS/HR; Start 06/12/19 at 10:00 Phenylephrine HCl 80 mg/Dextrose 250 ml @ 18.75 mls/ hr TITRATE IV Last administered on 06/16/19 08:39; Admin Dose 15.1 MLS/HR; Start 06/12/19 at 14:00 Levalbuterol (Xopenex Hfa) 4 puff Q6H RESP THERAPY INH Last administered on 06/25/19 01:43; Admin Dose 4 PUFF; Start 06/12/19 at 20:00 Ipratropium [place] (Atrovent Hfa) 4 puff Q6H RESP THERAPY INH Last administered on 06/25/19 01:43; Admin Dose 4 PUFF; Start 06/12/19 at 20:00 Norepinephrine 32 mg/Dextrose 250 ml @ 0.47 mls/hr TITRATE IV Last administered on 06/18/19 23:09; Admin Dose 0.94 MLS/HR; Start 06/13/19 at 08:00 Meropenem/Sodium Chloride 50 ml @ 100 mls/hr Q12 IVPB Last administered on 06/24/19 21:43; Admin Dose 100 MLS/HR; Start 06/13/19 at 14:00 Docusate Sodium (Colace Liquid Cup) 100 mg BID GTB Last administered on 06/23/19 08:37; Admin Dose 100 MG; Start 06/14/19 at 12:30 Insulin Aspart (Novolog Insulin Pen) NOVOLOG *MILD* ALGORI... Q4 SC Last administered on 06/25/19 05:26; Admin Dose 2 UNIT; Start 06/16/19 at 21:00 Insulin Glargine (Lantus) 15 units DAILY@0800 SC Last administered on 06/24/19 08:54; Admin Dose 15 UNITS; Start 06/18/19 at 08:00 Caspofungin 50 mg/ Sodium Chloride 250 ml @ 250 mls/hr Q24H IVPB Last administered on 06/24/19 13:48; Admin Dose 250 MLS/HR; Start 06/18/19 at 13:00 Midazolam HCl 50 ml @ 1 mls/hr TITRATE IV Last administered on 06/18/19 09:43; Admin Dose 2 MLS/HR; Start 06/17/19 at 15:30 Hydrocortisone (Solu-Cortef) 50 mg Q8 IV Last administered on 06/25/19 05:12; Admin Dose 50 MG; Start 06/18/19 at 14:00 Propofol 100 ml @ 1.656 mls/ hr Q12H IV Last administered on 06/25/19 01:22; Admin Dose 11.592 MLS/HR; Start 06/18/19 at 10:00 Lactobacillus Acidophilus/ Rhamnosus (Culturelle) 1 cap TID PO Last administered on 06/24/19 21:43; Admin Dose 1 CAP; Start 06/18/19 at 21:00 Bumetanide (Bumex) 1 mg BID DIURETICS IV Last administered on 06/25/19 05:12; Admin Dose 1 MG; Start 06/23/19 at 09:00 Vancomycin/Sodium Chloride 250 ml @ 125 mls/hr Q48H IVPB Last administered on 06/23/19 09:14; Admin Dose 125 MLS/HR; Start 06/23/19 at 09:00 Eye Lubricant (Artificial Tears Oph) 2 drop QID BOTH EYES Last administered on 06/24/19 21:39; Admin Dose 2 DROP; Start 06/23/19 at 09:30 Eye Lubricant (Akwa Oint) 1 applic Q6 BOTH EYES Last administered on 06/25/19 05:12; Admin Dose 1 APPLIC; Start 06/23/19 at 12:00 Potassium Chloride (Potassium Chloride Pwd/Soln) 20 meq PER PROTOCOL PRN GTB POTASSIUM REPLACEMENT PROTOCOL; Start 06/21/19 at 09:30 Potassium Chloride (Potassium Chloride Pwd/Soln) 30 meq PER PROTOCOL PRN GTB POTASSIUM REPLACEMENT PROTOCOL Last administered on 06/24/19 16:02; Admin Dose 30 MEQ; Start 06/21/19 at 09:30 Potassium Chloride (Potassium Chloride Pwd/Soln) 40 meq PER PROTOCOL PRN GTB PO TASSIUM REPLACEMENT PROTOCOL; Start 06/21/19 at 09:30 CHARAN LAUREANO Jun 25, 2019 08:36
[2019-06-25] MEDS: DOCUSATE SODIUM 10 MG/ML (10ML CUP) GTB SCH ×2 (09:00→20:39)
[2019-06-25] MEDS: POLYETHYLENE GLYCOL 17 GM PACKET GTB SCH (09:00)
[2019-06-25] MEDS: MEROPENEM 1 GM/50ML(PMX) 50 ML IVPB SCH ×2 (09:34→20:39)
[2019-06-25] MEDS: LACTOBACILLUS RHAMNOSUS CAP PO SCH ×3 (09:35→20:39)
[2019-06-25] MEDS: ASPIRIN 81 MG TAB PEG SCH (09:35)
[2019-06-25] MEDS: POTASSIUM CHLORIDE 20 MEQ POWDER FOR ORAL SOLN GTB PRN (09:35)
[2019-06-25] MEDS: FLUVOXAMINE MALEATE 25 MG TABLET GTB SCH (09:35)
[2019-06-25] MEDS: LEVETIRACETAM (100 MG/ML) 5ML CUP GTB SCH ×2 (09:35→20:39)
[2019-06-25] MEDS: AMIODARONE 200 MG TAB GTB SCH (09:35)
[2019-06-25] MEDS: OLANZAPINE 5 MG TAB GTB SCH (09:35)
[2019-06-25] MEDS: ARTIFICIAL TEARS 15 ML OPH BOTH EYES SCH ×4 (09:36→20:40)
[2019-06-25] MEDS: BALSAM PERU/CASTOR OIL 60 GM TUBE TOP SCH (09:36)
[2019-06-25] MEDS: INSULIN GLARGINE [LANTus] (100 UNITS/ML) SYG SC SCH (09:53)
[2019-06-25] MEDS: VANCOMYCIN 750 MG (PMX) 250 ML IVPB SCH (09:55)
--- NOTE | 2019-06-25 10:00 | CONS ---
Assessment/Plan Assessment/Plan Assessment/Plan (Daily) 1. acute Hypernatremia due to severe dehydration -resolved 2. acute Hyperkalemia due to FLOYD - Resolved 3. acute kidney injury on CKD III due to ATN from sepsis and Prerenal azotemia 4 . Septic shock due to multifocal PNA and UTI 5. Acute hypoxic respiratory failure due to PNA and Septic shock - Failed BIPAP- Intubated on 06/12/19 , 6. H/O severe dementia 7. H/O HTN 8. H/O HL 9. SNF resident 10. acute on chronic encephalopathy 11 h/o Dysphagia S/p G tube placement 12. Hypocalcemia with Ca 6.7 13. UTI with Urine cx growing ESBL Klebsiella Plan: BUN/Cr 96/0.95, other electrolytes stable -Bumex 1 mg IV BID currenlty on IV abx meropenem for ESBL Klebsiella UTI, Sputum Cx grew Bridget Albicans and MRSA- pt is on IV cancidas, and IV vancomycin- Renally dose all abx and monitor electrolytes Ventilator Management as per pulmonary - still on high PEEP 12, FiO2 60% DNR code status Ca 8.2 today, will give calcium gluconate if Ca drops lwer than 7.0 will follow up Consultation Date/Type/Reason Admit Date/Time Jun 10, 2019 at 12:38 Initial Consult Date 06/11/19 Type of Consult NEPHROLOGY Requesting Provider: MALINI GOMEZ Date/Time of Note DATE: 06/25/19 TIME: 10:00 Exam/Review of Systems Exam Vitals Vital Signs Date Temp Pulse Resp B/P (MAP) Pulse Ox O2 O2 Flow FiO2 Time Delivery Rate 06/25/19 62 08:00 06/25/19 26 94 60 05:21 06/25/19 105/62 Mechanical 04:30 (76) Ventilator 06/25/19 98.7 04:00 Intake and Output 06/24/19 06/24/19 06/25/19 1515:00 23:00 07:00 IntakeIntake Total 594.84 ml 596.40 ml 512.736 ml OutputOutput Total 230 ml 460 ml 360 ml BalanceBalance 364.84 ml 136.40 ml 152.736 ml Exam General: intubated on ventilator HEENT: ET tube in place, NG tube Neck: Supple, + JVD , no LAD Respiratory: Bilateral coarse BS+, basilar wheezing Cardiovascular: S1 S2 tachycardia, no murmur Gastrointestinal: soft, NT, ND, Thin abdomen, BS+, + PEG tube in place Neurological: sedated intubated on ventilator Results Result Diagram: 06/25/19 0400 06/25/19 0400 Results 24hrs Laboratory Tests Test 06/24/19 13:05 06/24/19 13:47 06/24/19 17:53 06/24/19 21:38 Blood Gas Blood arterial Specimen Source Arterial Blood 06/24/2019 1:10:3 Date Drawn 8 PM Arterial Blood pH 7.477 H (Temp corrected) Arterial Blood 42.2 pCO2 (Temp correct) Arterial Blood 221.4 H pO2 (Temp corrected) Arterial Blood 30.5 H HCO3 Arterial Blood 6.4 H Base Excess Arterial Blood 98.8 Oxygen Saturation James Test ACCEPTAB Arterial Blood Right Radial Gas Puncture Site Arterial 0.3 Blood Carboxyhemo globin Arterial Blood 0.4 Methemoglobin Blood Gas A-a O2 449.4 H Differential Oxyhemoglobin 98.1 Percent Blood Gas 37.0 Temperature Blood Gas 26.0 Respiration Rate Blood Gas Actual 26 Respiration Rate Blood Gas VENT - AC Modality FiO2 100.0 Blood Gas Tidal 400.0 Volume Blood Gas Low 14.0 PEEP Setting Blood Gas TM Notified Whom Blood Gas 06/24/2019 1:33:1 Notified Time 8 PM Bedside Glucose 185 123 149 Test 06/25/19 00:30 06/25/19 04:00 06/25/19 05:11 06/25/19 09:32 Bedside Glucose 141 186 190 White Blood Count 16.6 H Red Blood Count 2.57 L Hemoglobin 8.2 L Hematocrit 24.1 L Mean Corpuscular 93.8 Volume Mean Corpuscular 31.9 Hemoglobin Mean Corpuscular 34.0 Hemoglobin Concen t Red Cell 14.9 H Distribution Width Platelet Count 117 L Mean Platelet 11.5 H Volume Immature 1.100 H Granulocytes % Neutrophils % 93.8 H Lymphocytes % 2.2 L Monocytes % 2.8 Eosinophils % 0.0 Basophils % 0.1 Nucleated Red 0.0 Blood Cells % Immature 0.190 H Granulocytes # Neutrophils # 15.5 H Lymphocytes # 0.4 L Monocytes # 0.5 Eosinophils # 0.0 Basophils # 0.0 Nucleated Red 0.0 Blood Cells # Sodium Level 142 Potassium Level 3.8 Chloride Level 104 Carbon Dioxide 33 H Level Anion Gap 5 Blood Urea 96 H Nitrogen Creatinine 0.95 Est Glomerular Filtrat Rate mL/min Glucose Level 149 Calcium Level 8.1 L Phosphorus Level 4.5 Magnesium Level 2.2 Medications Medication Current Medications IV Flush (NS 3 ml) 3 ml PER PROTOCOL IV ; Start 06/10/19 at 12:00 Ondansetron HCl (Zofran Inj) 4 mg Q6H PRN IV NAUSEA/VOMITING; Start 06/10/19 at 12:00 Acetaminophen (Tylenol Tab) 650 mg Q6H PRN PO .PAIN 1-3 OR TEMP Last administered on 06/13/19at 15:52; Admin Dose 650 MG; Start 06/10/19 at 12:00 Acetaminophen/ Hydrocodone Bitart ([place] (5/325)) 1 tab Q6H PRN PO .PAIN 4-6; Start 06/10/19 at 12:00 Morphine Sulfate (morphine) 2 mg Q4H PRN IV .PAIN 7-10 Last administered on 06/15/19at 16:57; Admin Dose 2 MG; Start 06/10/19 at 12:00 Vancomycin HCl (Vanco Iv Per Pharmacy) VANCOMYCIN PER PHARMACY PER PROTOCOL XX ; Start 06/10/19 at 12:30 Amiodarone HCl (Cordarone) 100 mg DAILY GTB Last administered on 06/25/19at 09:35; Admin Dose 100 MG; Start 06/11/19 at 09:00 Atorvastatin Calcium (Lipitor) 20 mg QHS GTB Last administered on 06/24/19at 21:43; Admin Dose 20 MG; Start 06/10/19 at 21:00 Levetiracetam (Keppra Liquid) 500 mg BID GTB Last administered on 06/25/19at 09:35; Admin Dose 500 MG; Start 06/10/19 at 21:00 Olanzapine (Zyprexa) 5 mg DAILY GTB Last administered on 06/25/19 09:35; Admin Dose 5 MG; Start 06/11/19 at 09:00 Polyethylene Glycol (Miralax) 17 gm DAILY GTB Last administered on 06/24/19at 08:22; Admin Dose 17 GM; Start 06/11/19 at 09:00 Miscellaneous Information 1 ea NOTE XX ; Start 06/10/19 at 14:00 Glucose (Glutose) 15 gm Q15M PRN PO DECREASED GLUCOSE; Start 06/10/19 at 14:00 Glucose (Glutose) 22.5 gm Q15M PRN PO DECREASED GLUCOSE; Start 06/10/19 at 14:00 Dextrose (D50w Syringe) 25 ml Q15M PRN IV DECREASED GLUCOSE; Start 06/10/19 at 14:00 Dextrose (D50w Syringe) 50 ml Q15M PRN IV DECREASED GLUCOSE; Start 06/10/19 at 14:00 Glucagon (Glucagen) 1 mg Q15M PRN IM DECREASED GLUCOSE; Start 06/10/19 at 14:00 Glucose (Glutose) 15 gm Q15M PRN BUCCAL DECREASED GLUCOSE; Start 06/10/19 at 14:00 IV Flush (NS 10 ml) 10 ml [id number] PRN IV Line Patency; Start 06/10/19 at 16:00 Fluvoxamine Maleate (Fluvoxamine Maleate) 25 mg DAILY GTB Last administered on 06/25/19at 09:35; Admin Dose 25 MG; Start 06/11/19 at 09:00 Aspirin (Aspirin) 81 mg DAILY PEG Last administered on 06/25/19at 09:35; Admin Dose 81 MG; Start 06/11/19 at 09:00 Heparin Sodium (Porcine) (Heparin (5000 Units/1ml)) 5,000 unit Q8 SC Last administered on 06/14/19at 06:01; Admin Dose 5,000 UNIT; Start 06/11/19 at 14:00; Status Hold Ipratropium [place] (Atrovent 0.02% (Neb)) 0.5 mg Q4H RESP THERAPY PRN HHN SHORTNESS OF BREATH; Start 06/12/19 at 10:00 Levalbuterol (Xopenex Neb) 1.25 mg Q4H RESP THERAPY PRN HHN shortness of breath; Start 06/12/19 at 10:00 Fentanyl 100 ml @ 2.5 mls/hr TITRATE IV Last administered on 06/25/19at 07:04; Admin Dose 10 MLS/HR; Start 06/12/19 at 10:00 Phenylephrine HCl 80 mg/Dextrose 250 ml @ 18.75 mls/ hr TITRATE IV Last administered on 06/16/19at 08:39; Admin Dose 15.1 MLS/HR; Start 06/12/19 at 14:00 Levalbuterol (Xopenex Hfa) 4 puff Q6H RESP THERAPY INH Last administered on 06/25/19 09:20; Admin Dose 4 PUFF; Start 06/12/19 at 20:00 Ipratropium [place] (Atrovent Hfa) 4 puff Q6H RESP THERAPY INH Last administered on 06/25/19 09:20; Admin Dose 4 PUFF; Start 06/12/19 at 20:00 Norepinephrine 32 mg/Dextrose 250 ml @ 0.47 mls/hr TITRATE IV Last administered on 06/18/19 23:09; Admin Dose 0.94 MLS/HR; Start 06/13/19 at 08:00 Meropenem/Sodium Chloride 50 ml @ 100 mls/hr Q12 IVPB Last administered on 06/25/19 09:34; Admin Dose 100 MLS/HR; Start 06/13/19 at 14:00 Docusate Sodium (Colace Liquid Cup) 100 mg BID GTB Last administered on 06/23/19 08:37; Admin Dose 100 MG; Start 06/14/19 at 12:30 Insulin Aspart (Novolog Insulin Pen) NOVOLOG *MILD* ALGORI... Q4 SC Last administered on 06/25/19 09:53; Admin Dose 2 UNIT; Start 06/16/19 at 21:00 Insulin Glargine (Lantus) 15 units DAILY@0800 SC Last administered on 06/25/19 09:53; Admin Dose 15 UNITS; Start 06/18/19 at 08:00 Caspofungin 50 mg/ Sodium Chloride 250 ml @ 250 mls/hr Q24H IVPB Last administered on 06/24/19 13:48; Admin Dose 250 MLS/HR; Start 06/18/19 at 13:00 Midazolam HCl 50 ml @ 1 mls/hr TITRATE IV Last administered on 06/18/19 09:43; Admin Dose 2 MLS/HR; Start 06/17/19 at 15:30 Hydrocortisone (Solu-Cortef) 50 mg Q8 IV Last administered on 06/25/19 05:12; Admin Dose 50 MG; Start 06/18/19 at 14:00 Propofol 100 ml @ 1.656 mls/ hr Q12H IV Last administered on 06/25/19 09:34; Admin Dose 11.592 MLS/HR; Start 06/18/19 at 10:00 Lactobacillus Acidophilus/ Rhamnosus (Culturelle) 1 cap TID PO Last administered on 06/25/19 09:35; Admin Dose 1 CAP; Start 06/18/19 at 21:00 Bumetanide (Bumex) 1 mg BID DIURETICS IV Last administered on 06/25/19 05:12; Admin Dose 1 MG; Start 06/23/19 at 09:00 Vancomycin/Sodium Chloride 250 ml @ 125 mls/hr Q48H IVPB Last administered on 06/25/19 09:55; Admin Dose 125 MLS/HR; Start 06/23/19 at 09:00 Eye Lubricant (Artificial Tears Oph) 2 drop QID BOTH EYES Last administered on 06/25/19 09:36; Admin Dose 2 DROP; Start 06/23/19 at 09:30 Eye Lubricant (Akwa Oint) 1 applic Q6 BOTH EYES Last administered on 06/25/19 05:12; Admin Dose 1 APPLIC; Start 06/23/19 at 12:00 Potassium Chloride (Potassium Chloride Pwd/Soln) 20 meq PER PROTOCOL PRN GTB POTASSIUM REPLACEMENT PROTOCOL Last administered on 06/25/19 09:35; Admin Dose 20 MEQ; Start 06/21/19 at 09:30 Potassium Chloride (Potassium Chloride Pwd/Soln) 30 meq PER PROTOCOL PRN GTB POTASSIUM REPLACEMENT PROTOCOL Last administered on 06/24/19 16:02; Admin Dose 30 MEQ; Start 06/21/19 at 09:30 Potassium Chloride (Potassium Chloride Pwd/Soln) 40 meq PER PROTOCOL PRN GTB POTASSIUM REPLACEMENT PROTOCOL; Start 06/21/19 at 09:30 GERMAN FELIX MD Jun 25, 2019 10:00
--- NOTE | 2019-06-25 10:13 | PN ---
Date/Time of Note Date/Time of Note DATE: 06/25/19 TIME: 10:11 Objective Vitals Vital Signs Date Temp Pulse Resp B/P (MAP) Pulse Ox O2 O2 Flow FiO2 Time Delivery Rate 06/25/19 62 08:00 06/25/19 26 94 60 05:21 06/25/19 105/62 Mechanical 04:30 (76) Ventilator 06/25/19 98.7 04:00 Intake and Output 06/24/19 06/24/19 06/25/19 1515:00 23:00 07:00 IntakeIntake Total 594.84 ml 596.40 ml 512.736 ml OutputOutput Total 230 ml 460 ml 360 ml BalanceBalance 364.84 ml 136.40 ml 152.736 ml Results Result Diagram: 06/25/190 06/25/19 0400 Medications Medications Current Medications IV Flush (NS 3 ml) 3 ml PER PROTOCOL IV ; Start 06/10/19 at 12:00 Ondansetron HCl (Zofran Inj) 4 mg Q6H PRN IV NAUSEA/VOMITING; Start 06/10/19 at 12:00 Acetaminophen (Tylenol Tab) 650 mg Q6H PRN PO .PAIN 1-3 OR TEMP Last administered on 06/13/19at 15:52; Admin Dose 650 MG; Start 06/10/19 at 12:00 Acetaminophen/ Hydrocodone Bitart ([place] (5/325)) 1 tab Q6H PRN PO .PAIN 4-6; Start 06/10/19 at 12:00 Morphine Sulfate (morphine) 2 mg Q4H PRN IV .PAIN 7-10 Last administered on 06/15/19at 16:57; Admin Dose 2 MG; Start 06/10/19 at 12:00 Vancomycin HCl (Vanco Iv Per Pharmacy) VANCOMYCIN PER PHARMACY PER PROTOCOL XX ; Start 06/10/19 at 12:30 Amiodarone HCl (Cordarone) 100 mg DAILY GTB Last administered on 06/25/19at 09:35; Admin Dose 100 MG; Start 06/11/19 at 09:00 Atorvastatin Calcium (Lipitor) 20 mg QHS GTB Last administered on 06/24/19at 21:43; Admin Dose 20 MG; Start 06/10/19 at 21:00 Levetiracetam (Keppra Liquid) 500 mg BID GTB Last administered on 06/25/19 09:35; Admin Dose 500 MG; Start 06/10/19 at 21:00 Olanzapine (Zyprexa) 5 mg DAILY GTB Last administered on 06/25/19 09:35; Admin Dose 5 MG; Start 06/11/19 at 09:00 Polyethylene Glycol (Miralax) 17 gm DAILY GTB Last administered on 06/24/19 08:22; Admin Dose 17 GM; Start 06/11/19 at 09:00 Miscellaneous Information 1 ea NOTE XX ; Start 06/10/19 at 14:00 Glucose (Glutose) 15 gm Q15M PRN PO DECREASED GLUCOSE; Start 06/10/19 at 14:00 Glucose (Glutose) 22.5 gm Q15M PRN PO DECREASED GLUCOSE; Start 06/10/19 at 14:00 Dextrose (D50w Syringe) 25 ml Q15M PRN IV DECREASED GLUCOSE; Start 06/10/19 at 14:00 Dextrose (D50w Syringe) 50 ml Q15M PRN IV DECREASED GLUCOSE; Start 06/10/19 at 14:00 Glucagon (Glucagen) 1 mg Q15M PRN IM DECREASED GLUCOSE; Start 06/10/19 at 14:00 Glucose (Glutose) 15 gm Q15M PRN BUCCAL DECREASED GLUCOSE; Start 06/10/19 at 14:00 IV Flush (NS 10 ml) 10 ml [id number] PRN IV Line Patency; Start 06/10/19 at 16:00 Fluvoxamine Maleate (Fluvoxamine Maleate) 25 mg DAILY GTB Last administered on 06/25/19 09:35; Admin Dose 25 MG; Start 06/11/19 at 09:00 Aspirin (Aspirin) 81 mg DAILY PEG Last administered on 06/25/19 09:35; Admin Dose 81 MG; Start 06/11/19 at 09:00 Heparin Sodium (Porcine) (Heparin (5000 Units/1ml)) 5,000 unit Q8 SC Last administered on 06/14/19at 06:01; Admin Dose 5,000 UNIT; Start 06/11/19 at 14:00; Status Hold Ipratropium [place] (Atrovent 0.02% (Neb)) 0.5 mg Q4H RESP THERAPY PRN HHN SHORTNESS OF BREATH; Start 06/12/19 at 10:00 Levalbuterol (Xopenex Neb) 1.25 mg Q4H RESP THERAPY PRN HHN shortness of breath; Start 06/12/19 at 10:00 Fentanyl 100 ml @ 2.5 mls/hr TITRATE IV Last administered on 06/25/19 07:04; Admin Dose 10 MLS/HR; Start 06/12/19 at 10:00 Phenylephrine HCl 80 mg/Dextrose 250 ml @ 18.75 mls/ hr TITRATE IV Last administered on 06/16/19 08:39; Admin Dose 15.1 MLS/HR; Start 06/12/19 at 14:00 Levalbuterol (Xopenex Hfa) 4 puff Q6H RESP THERAPY INH Last administered on 06/25/19 09:20; Admin Dose 4 PUFF; Start 06/12/19 at 20:00 Ipratropium [place] (Atrovent Hfa) 4 puff Q6H RESP THERAPY INH Last administered on 06/25/19 09:20; Admin Dose 4 PUFF; Start 06/12/19 at 20:00 Norepinephrine 32 mg/Dextrose 250 ml @ 0.47 mls/hr TITRATE IV Last administered on 06/18/19 23:09; Admin Dose 0.94 MLS/HR; Start 06/13/19 at 08:00 Meropenem/Sodium Chloride 50 ml @ 100 mls/hr Q12 IVPB Last administered on 06/25/19 09:34; Admin Dose 100 MLS/HR; Start 06/13/19 at 14:00 Docusate Sodium (Colace Liquid Cup) 100 mg BID GTB Last administered on 06/23/19 08:37; Admin Dose 100 MG; Start 06/14/19 at 12:30 Insulin Aspart (Novolog Insulin Pen) NOVOLOG *MILD* ALGORI... Q4 SC Last administered on 06/25/19 09:53; Admin Dose 2 UNIT; Start 06/16/19 at 21:00 Insulin Glargine (Lantus) 15 units DAILY@0800 SC Last administered on 06/25/19 09:53; Admin Dose 15 UNITS; Start 06/18/19 at 08:00 Caspofungin 50 mg/ Sodium Chloride 250 ml @ 250 mls/hr Q24H IVPB Last admi nistered on 06/24/19 13:48; Admin Dose 250 MLS/HR; Start 06/18/19 at 13:00 Midazolam HCl 50 ml @ 1 mls/hr TITRATE IV Last administered on 06/18/19 09:43; Admin Dose 2 MLS/HR; Start 06/17/19 at 15:30 Hydrocortisone (Solu-Cortef) 50 mg Q8 IV Last administered on 06/25/19 05:12; Admin Dose 50 MG; Start 06/18/19 at 14:00 Propofol 100 ml @ 1.656 mls/ hr Q12H IV Last administered on 06/25/19 09:34; Admin Dose 11.592 MLS/HR; Start 06/18/19 at 10:00 Lactobacillus Acidophilus/ Rhamnosus (Culturelle) 1 cap TID PO Last administered on 06/25/19 09:35; Admin Dose 1 CAP; Start 06/18/19 at 21:00 Bumetanide (Bumex) 1 mg BID DIURETICS IV Last administered on 06/25/19 05:12; Admin Dose 1 MG; Start 06/23/19 at 09:00 Vancomycin/Sodium Chloride 250 ml @ 125 mls/hr Q48H IVPB Last administered on 06/25/19 09:55; Admin Dose 125 MLS/HR; Start 06/23/19 at 09:00 Eye Lubricant (Artificial Tears Oph) 2 drop QID BOTH EYES Last administered on 06/25/19 09:36; Admin Dose 2 DROP; Start 06/23/19 at 09:30 Eye Lubricant (Akwa Oint) 1 applic Q6 BOTH EYES Last administered on 06/25/19 05:12; Admin Dose 1 APPLIC; Start 06/23/19 at 12:00 Potassium Chloride (Potassium Chloride Pwd/Soln) 20 meq PER PROTOCOL PRN GTB POTASSIUM REPLACEMENT PROTOCOL Last administered on 06/25/19 09:35; Admin Dose 20 MEQ; Start 06/21/19 at 09:30 Potassium Chloride (Potassium Chloride Pwd/Soln) 30 meq PER PROTOCOL PRN GTB POTASSIUM REPLACEMENT PROTOCOL Last administered on 06/24/19 16:02; Admin Dose 30 MEQ; Start 06/21/19 at 09:30 Potassium Chloride (Potassium Chloride Pwd/Soln) 40 meq PER PROTOCOL PRN GTB POTASSIUM REPLACEMENT PROTOCOL; Start 06/21/19 at 09:30 VTE Prophylaxis Risk score (from Ns)>0 risk: 13 SCD applied (from Ns): No SCD contraindication: other Lines/Catheters IV Catheter Type: Dorsey in Place: Yes Cont'd dorsey catheter reason: terminal illness/intractable pain Assessment/Plan Hospital Course Subjective Patient still intubated, sedated Objective Physical exam General: Patient is intubated, sedated Mentation: Patient is intubated and sedated Head: Normocephalic atraumatic Eyes: EOMI, pupils reactive to light Neck: Supple, nontender, midline Respiratory: Coarse to auscultation bilaterally Cardiovascular: Regular rate, no obvious murmurs Gastrointestinal: non-tender to palpation, bowel sounds heard. Neurological: Moves all extremities spontaneously to noxious stimuli Skin: No new skin lesions, PEG tube site present Assessment/Plan 1. Acute hypoxic respiratory failure, ARDS secondary to sepsis - CXR noted with increased congestion - cont bumex per nephro - Discussed with son done as family needs to decide on trach vs comfort care. Will discuss with siblings - Pulm on board and appreciate recommendations - wean down vent settings as able. Still on high fio2 req - Continue IV antibiotics per ID recommendations. 2. Multifocal pneumonia - Sputum cx noted with MRSA and Bridget - ID on board and appreciate recommendations 3. Hypokalemia - replace 4. Abdominal distension - KUB noted and US with small ascites - most likely secondary to anasarca. -Persistent, CT of the abdomen pelvis was ordered but unable to be completed due to high PEEP on ventilator and transportation issues, will order repeat ultrasound. 5. Atrial fibrillation with RVR- resolved - back in sinus rhythm - Cardiology consultation appreciated 6. Non-ST elevated DC - Cardiology consultation appreciated and will continue current medications - Very mild elevation - continue aspirin and statin 7. Thrombocytopenia-improving - Very likely due to septic shock - Fibrinogen is elevated, unlikely DIC anemia -likely chronic diease as well as multiple lab draws -replete as needed. 8. Chronic dysphasia - Patient has PEG tube 9. Diabetes mellitus - continue on Lantus and ISS - sugars controlled 10. Chronic encephalopathy - CT of the brain initially showed alarming findings however there appears to be a mixup with patient's name, patient's actual name is Trey Roberts, bright [id number]. Neurosurgeon was initially consulted for possible brain bleed and other findings however when comparing to the patient's actual chart in 2014, neurosurgeon reviewed the CT and MRI and found a similar findings with no acute emergent change. - Monitor closely, patient appears to be at baseline 11. Dyslipidemia - Continue home meds 12. Mood disorder - Continue home meds 13. Chronic kidney disease - stable - nephrology consultation appreciated 14. Failure to thrive - now DNR per families request 15. Anasarca - cont bumex per nephro recs 16. Disposition - Continue monitoring in ICU while on vent support. family to decide trach vs comfort care. >35 minutes of critical care spent with patient at bedside. MALINI OGMEZ Jun 25, 2019 10:13
[2019-06-25] MEDS: CASPOFUNGIN 50 MG in SOD CHLORIDE 0.9% 250 ML IVPB SCH (13:40)
--- NOTE | 2019-06-25 15:46 | PN ---
DATE: 06/25/2019 INFECTIOUS DISEASE PROGRESS NOTE SUBJECTIVE: Patient is intubated, sedated, in no distress, had been afebrile. WBC 16.6, platelets 117, neutrophils 93.8, BUN 96, creatinine 0.95. DIAGNOSTICS: KUB this morning revealed questionable cholelithiasis. INDWELLINGS: Endotracheal tube, PEG, Dial, PICC line. ANTIMICROBIALS: 1. Cancidas. 2. Meropenem. 3. Vancomycin. PHYSICAL EXAMINATION: GENERAL: This is a chronically ill-appearing, elderly woman who is intubated, sedated, in no distres s. HEENT: Head atraumatic, normocephalic. NECK: Supple. Trachea midline. CHEST: Rise symmetrical. Breath sounds diminished at the bases. HEART: S1, S2. ABDOMEN: Distended. Bowel tones hypoactive. EXTREMITIES: With trace dependent edema. ASSESSMENT: 1. Status post septic shock. 2. Acute respiratory failure. 3. Acute respiratory distress syndrome. 4. Status post Klebsiella extended-spectrum beta-lactamase urinary tract infection. 5. Dysphagia. 6. Atrial fibrillation. 7. Non-ST elevation myocardial infarction. PLAN: The patient remains unchanged. Pending abdominal ultrasound. Continue antibiotics. The анна ent is at the completion of therapy. Dictated By: JACKIE CORTÉS ANTHROPOLOGICAL LINGUIST for LARISSA SOTO/JACQUELINE Conf#: [id number] DID#: [id number]
[2019-06-25] MEDS: ATORVASTATIN 20 MG TAB GTB SCH (20:39)
[2019-06-26] VITALS (57 sets, daily range): BP systolic 102–134; BP diastolic 58–75; PULSE 61–87; RESP 15–30
[2019-06-26] MEDS: OCULAR LUBRICANT 3.5 GM OPH OINT BOTH EYES SCH ×4 (00:08→17:20)
[2019-06-26] MEDS: INSULIN ASPART [NOVOLOG] 3 ML PEN SC SCH ×6 (00:41→21:54)
[2019-06-26] MEDS: LEVALBUTEROL (HFA) 15 GM INHALER INH SCH ×4 (01:29→19:17)
[2019-06-26] MEDS: IPRATROPIUM (HFA) 12.9 GM INHALER INH SCH ×4 (01:29→19:17)
[2019-06-26] MEDS: FENTAnyl (DRIP) 1000 mcg/100mL 100 ML IV SCH ×3 (02:05→21:51)
[2019-06-26] MEDS: PROPOFOL 100 ML IV SCH ×2 (03:11→17:20)
[2019-06-26] MEDS: BUMETANIDE 1 MG INJ IV SCH ×2 (06:05→17:27)
[2019-06-26] MEDS: HYDROCORTISONE 100 MG INJ IV SCH ×3 (06:05→21:48)
--- NOTE | 2019-06-26 06:22 | CONS ---
Assessment/Plan Assessment/Plan Assessment/Plan (Daily) After my conversation with family member yesterday I am not certain whether or not they are interested in having a family conference. However suggest pulmonary medicine to speak to family members in the stress the necessity make a decision on trach. Will speak to Bioethics gentleman and get their suggestion on establishing goals of care with family members. Consultation Date/Type/Reason Admit Date/Time Jun 10, 2019 at 12:38 Initial Consult Date 06/11/19 Requesting Provider: MALINI GOMEZ Date/Time of Note DATE: 06/26/19 TIME: 06:20 Exam/Review of Systems Exam Vitals Vital Signs Date Temp Pulse Resp B/P (MAP) Pulse Ox O2 O2 Flow FiO2 Time Delivery Rate 06/26/19 64 24 117/67 97 Mechanical 06:00 (84) Ventilator 06/26/19 60 05:20 06/26/19 98.2 04:00 Intake and Output 06/25/19 06/25/19 06/26/19 1515:00 23:00 07:00 IntakeIntake Total 1021.000 ml 484.152 ml 645.56 ml OutputOutput Total 500 ml 620 ml 550 ml BalanceBalance 521.000 ml -135.848 ml 95.56 ml Results Result Diagram: 06/26/19 0350 06/26/19 0350 Results 24hrs Laboratory Tests Test 06/25/19 09:32 06/25/19 13:40 06/25/19 17:01 06/25/19 20:31 Bedside Glucose 190 180 139 114 Test 06/26/19 00:35 06/26/19 03:50 06/26/19 04:58 Bedside Glucose 146 142 White Blood Count 19.6 H Red Blood Count 2.62 L Hemoglobin 7.9 L Hematocrit 24.7 L Mean Corpuscular 94.3 Volume Mean Corpuscular 30.2 Hemoglobin Mean Corpuscular 32.0 Hemoglobin Concent Red Cell 14.6 H Distribution Width Platelet Count 146 # Mean Platelet Volume 11.5 H Immature 1.100 H Granulocytes % Neutrophils % 92.9 H Lymphocytes % 2.0 L Monocytes % 3.9 Eosinophils % 0.0 Basophils % 0.1 Nucleated Red Blood 0.0 Cells % Immature 0.210 H Granulocytes # Neutrophils # 18.2 H Lymphocytes # 0.4 L Monocytes # 0.8 Eosinophils # 0.0 Basophils # 0.0 Nucleated Red Blood 0.0 Cells # Sodium Level 144 Potassium Level 3.6 Chloride Level 105 Carbon Dioxide Level 35 H Anion Gap 4 L Blood Urea Nitrogen 105 H Creatinine 1.10 H Est Glomerular Filtrat Rate mL/min Glucose Level 128 Calcium Level 8.1 L Phosphorus Level 4.5 Magnesium Level 2.3 Medications Medication Current Medications IV Flush (NS 3 ml) 3 ml PER PROTOCOL IV ; Start 06/10/19 at 12:00 Ondansetron HCl (Zofran Inj) 4 mg Q6H PRN IV NAUSEA/VOMITING; Start 06/10/19 at 12:00 Acetaminophen (Tylenol Tab) 650 mg Q6H PRN PO .PAIN 1-3 OR TEMP Last admi nistered on 06/13/19at 15:52; Admin Dose 650 MG; Start 06/10/19 at 12:00 Acetaminophen/ Hydrocodone Bitart ([place] (5/325)) 1 tab Q6H PRN PO .PAIN 4-6; Start 06/10/19 at 12:00 Morphine Sulfate (morphine) 2 mg Q4H PRN IV .PAIN 7-10 Last administered on 06/15/19 16:57; Admin Dose 2 MG; Start 06/10/19 at 12:00 Vancomycin HCl (Vanco Iv Per Pharmacy) VANCOMYCIN PER PHARMACY PER PROTOCOL XX ; Start 06/10/19 at 12:30 Amiodarone HCl (Cordarone) 100 mg DAILY GTB Last administered on 06/25/19 09:35; Admin Dose 100 MG; Start 06/11/19 at 09:00 Atorvastatin Calcium (Lipitor) 20 mg QHS GTB Last administered on 06/25/19 20:39; Admin Dose 20 MG; Start 06/10/19 at 21:00 Levetiracetam (Keppra Liquid) 500 mg BID GTB Last administered on 06/25/19 20:39; Admin Dose 500 MG; Start 06/10/19 at 21:00 Olanzapine (Zyprexa) 5 mg DAILY GTB Last administered on 06/25/19 09:35; Admin Dose 5 MG; Start 06/11/19 at 09:00 Polyethylene Glycol (Miralax) 17 gm DAILY GTB Last administered on 06/24/19 08:22; Admin Dose 17 GM; Start 06/11/19 at 09:00 Miscellaneous Information 1 ea NOTE XX ; Start 06/10/19 at 14:00 Glucose (Glutose) 15 gm Q15M PRN PO DECREASED GLUCOSE; Start 06/10/19 at 14:00 Glucose (Glutose) 22.5 gm Q15M PRN PO DECREASED GLUCOSE; Start 06/10/19 at 14:00 Dextrose (D50w Syringe) 25 ml Q15M PRN IV DECREASED GLUCOSE; Start 06/10/19 at 14:00 Dextrose (D50w Syringe) 50 ml Q15M PRN IV DECREASED GLUCOSE; Start 06/10/19 at 14:00 Glucagon (Glucagen) 1 mg Q15M PRN IM DECREASED GLUCOSE; Start 06/10/19 at 14:00 Glucose (Glutose) 15 gm Q15M PRN BUCCAL DECREASED GLUCOSE; Start 06/10/19 at 14:00 IV Flush (NS 10 ml) 10 ml [id number] PRN IV Line Patency; Start 06/10/19 at 16:00 Fluvoxamine Maleate (Fluvoxamine Maleate) 25 mg DAILY GTB Last administered on 06/25/19at 09:35; Admin Dose 25 MG; Start 06/11/19 at 09:00 Aspirin (Aspirin) 81 mg DAILY PEG Last administered on 06/25/19at 09:35; Admin Dose 81 MG; Start 06/11/19 at 09:00 Heparin Sodium (Porcine) (Heparin (5000 Units/1ml)) 5,000 unit Q8 SC Last administered on 06/14/19at 06:01; Admin Dose 5,000 UNIT; Start 06/11/19 at 14:00; Status Hold Ipratropium [place] (Atrovent 0.02% (Neb)) 0.5 mg Q4H RESP THERAPY PRN HHN SHORTNESS OF BREATH; Start 06/12/19 at 10:00 Levalbuterol (Xopenex Neb) 1.25 mg Q4H RESP THERAPY PRN HHN shortness of breath; Start 06/12/19 at 10:00 Fentanyl 100 ml @ 2.5 mls/hr TITRATE IV Last administered on 06/26/19at 02:05; Admin Dose 10 MLS/HR; Start 06/12/19 at 10:00 Phenylephrine HCl 80 mg/Dextrose 250 ml @ 18.75 mls/ hr TITRATE IV Last administered on 06/16/19 08:39; Admin Dose 15.1 MLS/HR; Start 06/12/19 at 14:00 Levalbuterol (Xopenex Hfa) 4 puff Q6H RESP THERAPY INH Last administered on 06/26/19 01:29; Admin Dose 4 PUFF; Start 06/12/19 at 20:00 Ipratropium [place] (Atrovent Hfa) 4 puff Q6H RESP THERAPY INH Last administered on 06/26/19 01:29; Admin Dose 4 PUFF; Start 06/12/19 at 20:00 Norepinephrine 32 mg/Dextrose 250 ml @ 0.47 mls/hr TITRATE IV Last administered on 06/18/19 23:09; Admin Dose 0.94 MLS/HR; Start 06/13/19 at 08:00 Meropenem/Sodium Chloride 50 ml @ 100 mls/hr Q12 IVPB Last administered on 06/25/19 20:39; Admin Dose 100 MLS/HR; Start 06/13/19 at 14:00 Docusate Sodium (Colace Liquid Cup) 100 mg BID GTB Last administered on 06/25/19 20:39; Admin Dose 100 MG; Start 06/14/19 at 12:30 Insulin Aspart (Novolog Insulin Pen) NOVOLOG *MILD* ALGORI... Q4 SC Last administered on 06/26/19 05:03; Admin Dose 1 UNIT; Start 06/16/19 at 21:00 Insulin Glargine (Lantus) 15 units DAILY@0800 SC Last administered on 06/25/19 09:53; Admin Dose 15 UNITS; Start 06/18/19 at 08:00 Caspofungin 50 mg/ Sodium Chloride 250 ml @ 250 mls/hr Q24H IVPB Last administered on 06/25/19 13:40; Admin Dose 250 MLS/HR; Start 06/18/19 at 13:00 Midazolam HCl 50 ml @ 1 mls/hr TITRATE IV Last administered on 06/18/19 09:43; Admin Dose 2 MLS/HR; Start 06/17/19 at 15:30 Hydrocortisone (Solu-Cortef) 50 mg Q8 IV Last administered on 06/26/19 06:05; Admin Dose 50 MG; Start 06/18/19 at 14:00 Propofol 100 ml @ 1.656 mls/ hr Q12H IV Last administered on 06/26/19 03:11; Admin Dose 15 MLS/HR; Start 06/18/19 at 10:00 Lactobacillus Acidophilus/ Rhamnosus (Culturelle) 1 cap TID PO Last admini stered on 06/25/19 20:39; Admin Dose 1 CAP; Start 06/18/19 at 21:00 Bumetanide (Bumex) 1 mg BID DIURETICS IV Last administered on 06/26/19 06:05; Admin Dose 1 MG; Start 06/23/19 at 09:00 Vancomycin/Sodium Chloride 250 ml @ 125 mls/hr Q48H IVPB Last administered on 06/25/19 09:55; Admin Dose 125 MLS/HR; Start 06/23/19 at 09:00 Eye Lubricant (Artificial Tears Oph) 2 drop QID BOTH EYES Last administered on 06/25/19 20:40; Admin Dose 2 DROP; Start 06/23/19 at 09:30 Eye Lubricant (Akwa Oint) 1 applic Q6 BOTH EYES Last administered on 06/26/19 05:00; Admin Dose 1 APPLIC; Start 06/23/19 at 12:00 Potassium Chloride (Potassium Chloride Pwd/Soln) 20 meq PER PROTOCOL PRN GTB POTASSIUM REPLACEMENT PROTOCOL Last administered on 06/25/19 09:35; Admin Dose 20 MEQ; Start 06/21/19 at 09:30 Potassium Chloride (Potassium Chloride Pwd/Soln) 30 meq PER PROTOCOL PRN GTB POTASSIUM REPLACEMENT PROTOCOL Last administered on 06/24/19 16:02; Admin Dose 30 MEQ; Start 06/21/19 at 09:30 Potassium Chloride (Potassium Chloride Pwd/Soln) 40 meq PER PROTOCOL PRN GTB POTASSIUM REPLACEMENT PROTOCOL; Start 06/21/19 at 09:30 NANCY BANKS Jun 26, 2019 06:22
--- NOTE | 2019-06-26 08:30 | CONS ---
Assessment/Plan Assessment/Plan Assessment/Plan (Daily) Ventilator setting; AC of 26, tidal volume 400, PEEP of 12, 60% FiO2. Patient is currently on propofol 25 mics per kilogram per minute, fentanyl 100 mics per hour. Assessment and recommendations; 1. Patient admitted with severe bilateral pneumonia with ARDS with persistent hypoxemia. 2. History of seizures. 3. History of diabetes. 4. Anemia and thrombocytopenia. 5. Mild increase in serum creatinine. 6. CHF with generalized anasarca. Continue current supportive care. Obtain repeat ABG. Prognosis remains extremely poor. Family to decide about possible palliative care. Consultation Date/Type/Reason Admit Date/Time Jun 10, 2019 at 12:38 Initial Consult Date 06/11/19 Type of Consult Pulmonary/critical care Patient is an 84-year-old [place] lady who was transferred [facility] the hospital from [facility] with hypoxemia. Upon evaluation patient is been diagnosed with sepsis due to pneumonia. Patient has advanced dementia and is unable to give any history by herself whatsoever. Patient however is appearing tachypneic. Past medical history; 1. History of chronic atrial fibrillation. 2. Advanced dementia. 3. History of G-tube placement. 4. History of diabetes. 5. History of hypertension. Medications; reviewed. Allergies; none. Social history, family history, occupational history is are not available. Review of systems; unable to be obtained. General exam; elderly woman, on BiPAP. Noncommunicative. Tachypneic. Requesting Provider: MALINI GOMEZ Date/Time of Note DATE: 06/26/19 TIME: 08:28 24 HR Interval Summary Free Text/Dictation Patient's condition is critical. Remains hypoxemic. General exam; elderly woman, orally intubated, sedated, currently in no distress. Exam/Review of Systems Exam Vitals Vital Signs Date Temp Pulse Resp B/P (MAP) Pulse Ox O2 O2 Flow FiO2 Time Delivery Rate 06/26/19 62 23 114/65 95 Mechanical 07:00 (81) Ventilator 06/26/19 60 05:20 06/26/19 98.2 04:00 Intake and Output 06/25/19 06/25/19 06/26/19 1515:00 23:00 07:00 IntakeIntake Total 1021.000 ml 484.152 ml 695.56 ml OutputOutput Total 500 ml 620 ml 670 ml BalanceBalance 521.000 ml -135.848 ml 25.56 ml Exam H ENT exam; supple neck, no JVD. No lymphadenopathy. Midline trachea. No thyromegaly. Orally intubated. Patient does have multiple carious teeth. No neck masses. Chest exam; diminished breath sound bilaterally with bilateral crackles. S1-S2 audible, no murmurs. Regular rhythm. Abdomen exam; soft, no organomegaly. G-tube in place. Bowel sounds are audible. Extremity exam; 2+ anasarca. NECK SKEWER exam; patient is sedated. Results Result Diagram: 06/26/19 0350 06/26/19 0350 Results 24hrs Laboratory Tests Test 06/25/19 09:32 06/25/19 13:40 06/25/19 17:01 06/25/19 20:31 Bedside Glucose 190 180 139 114 Test 06/26/19 00:35 06/26/19 03:50 06/26/19 04:58 Bedside Glucose 146 142 White Blood Count 19.6 H Red Blood Count 2.62 L Hemoglobin 7.9 L Hematocrit 24.7 L Mean Corpuscular 94.3 Volume Mean Corpuscular 30.2 Hemoglobin Mean Corpuscular 32.0 Hemoglobin Concent Red Cell 14.6 H Distribution Width Platelet Count 146 # Mean Platelet Volume 11.5 H Immature 1.100 H Granulocytes % Neutrophils % 92.9 H Lymphocytes % 2.0 L Monocytes % 3.9 Eosinophils % 0.0 Basophils % 0.1 Nucleated Red Blood 0.0 Cells % Immature 0.210 H Granulocytes # Neutrophils # 18.2 H Lymphocytes # 0.4 L Monocytes # 0.8 Eosinophils # 0.0 Basophils # 0.0 Nucleated Red Blood 0.0 Cells # Sodium Level 144 Potassium Level 3.6 Chloride Level 105 Carbon Dioxide Level 35 H Anion Gap 4 L Blood Urea Nitrogen 105 H Creatinine 1.10 H Est Glomerular Filtrat Rate mL/min Glucose Level 128 Calcium Level 8.1 L Phosphorus Level 4.5 Magnesium Level 2.3 Medications Medication Current Medications IV Flush (NS 3 ml) 3 ml PER PROTOCOL IV ; Start 06/10/19 at 12:00 Ondansetron HCl (Zofran Inj) 4 mg Q6H PRN IV NAUSEA/VOMITING; Start 06/10/19 at 12:00 Acetaminophen (Tylenol Tab) 650 mg Q6H PRN PO .PAIN 1-3 OR TEMP Last administered on 06/13/19at 15:52; Admin Dose 650 MG; Start 06/10/19 at 12:00 Acetaminophen/ Hydrocodone Bitart ([place] (5/325)) 1 tab Q6H PRN PO .PAIN 4-6; Start 06/10/19 at 12:00 Morphine Sulfate (morphine) 2 mg Q4H PRN IV .PAIN 7-10 Last administered on 06/15/19at 16:57; Admin Dose 2 MG; Start 06/10/19 at 12:00 Vancomycin HCl (Vanco Iv Per Pharmacy) VANCOMYCIN PER PHARMACY PER PROTOCOL XX ; Start 06/10/19 at 12:30 Amiodarone HCl (Cordarone) 100 mg DAILY GTB Last administered on 06/25/19at 09:35; Admin Dose 100 MG; Start 06/11/19 at 09:00 Atorvastatin Calcium (Lipitor) 20 mg QHS GTB Last administered on 06/25/19at 20:39; Admin Dose 20 MG; Start 06/10/19 at 21:00 Levetiracetam (Keppra Liquid) 500 mg BID GTB Last administered on 06/25/19at 20:39; Admin Dose 500 MG; Start 06/10/19 at 21:00 Olanzapine (Zyprexa) 5 mg DAILY GTB Last administered on 06/25/19 09:35; Admin Dose 5 MG; Start 06/11/19 at 09:00 Polyethylene Glycol (Miralax) 17 gm DAILY GTB Last administered on 06/24/19at 08:22; Admin Dose 17 GM; Start 06/11/19 at 09:00 Miscellaneous Information 1 ea NOTE XX ; Start 06/10/19 at 14:00 Glucose (Glutose) 15 gm Q15M PRN PO DECREASED GLUCOSE; Start 06/10/19 at 14:00 Glucose (Glutose) 22.5 gm Q15M PRN PO DECREASED GLUCOSE; Start 06/10/19 at 14:00 Dextrose (D50w Syringe) 25 ml Q15M PRN IV DECREASED GLUCOSE; Start 06/10/19 at 14:00 Dextrose (D50w Syringe) 50 ml Q15M PRN IV DECREASED GLUCOSE; Start 06/10/19 at 14:00 Glucagon (Glucagen) 1 mg Q15M PRN IM DECREASED GLUCOSE; Start 06/10/19 at 14:00 Glucose (Glutose) 15 gm Q15M PRN BUCCAL DECREASED GLUCOSE; Start 06/10/19 at 14:00 IV Flush (NS 10 ml) 10 ml [id number] PRN IV Line Patency; Start 06/10/19 at 16:00 Fluvoxamine Maleate (Fluvoxamine Maleate) 25 mg DAILY GTB Last administered on 06/25/19 09:35; Admin Dose 25 MG; Start 06/11/19 at 09:00 Aspirin (Aspirin) 81 mg DAILY PEG Last administered on 06/25/19 09:35; Admin Dose 81 MG; Start 06/11/19 at 09:00 Heparin Sodium (Porcine) (Heparin (5000 Units/1ml)) 5,000 unit Q8 SC Last administered on 06/14/19 06:01; Admin Dose 5,000 UNIT; Start 06/11/19 at 14:00; Status Hold Ipratropium [place] (Atrovent 0.02% (Neb)) 0.5 mg Q4H RESP THERAPY PRN HHN SHORTNESS OF BREATH; Start 06/12/19 at 10:00 Levalbuterol (Xopenex Neb) 1.25 mg Q4H RESP THERAPY PRN HHN shortness of breath; Start 06/12/19 at 10:00 Fentanyl 100 ml @ 2.5 mls/hr TITRATE IV Last administered on 06/26/19 02:05; Admin Dose 10 MLS/HR; Start 06/12/19 at 10:00 Phenylephrine HCl 80 mg/Dextrose 250 ml @ 18.75 mls/ hr TITRATE IV Last administered on 06/16/19 08:39; Admin Dose 15.1 MLS/HR; Start 06/12/19 at 14:00 Levalbuterol (Xopenex Hfa) 4 puff Q6H RESP THERAPY INH Last administered on 06/26/19 01:29; Admin Dose 4 PUFF; Start 06/12/19 at 20:00 Ipratropium [place] (Atrovent Hfa) 4 puff Q6H RESP THERAPY INH Last administer ed on 06/26/19 01:29; Admin Dose 4 PUFF; Start 06/12/19 at 20:00 Norepinephrine 32 mg/Dextrose 250 ml @ 0.47 mls/hr TITRATE IV Last administered on 06/18/19 23:09; Admin Dose 0.94 MLS/HR; Start 06/13/19 at 08:00 Meropenem/Sodium Chloride 50 ml @ 100 mls/hr Q12 IVPB Last administered on 06/25/19 20:39; Admin Dose 100 MLS/HR; Start 06/13/19 at 14:00 Docusate Sodium (Colace Liquid Cup) 100 mg BID GTB Last administered on 06/25/19 20:39; Admin Dose 100 MG; Start 06/14/19 at 12:30 Insulin Aspart (Novolog Insulin Pen) NOVOLOG *MILD* ALGORI... Q4 SC Last administered on 06/26/19 05:03; Admin Dose 1 UNIT; Start 06/16/19 at 21:00 Insulin Glargine (Lantus) 15 units DAILY@0800 SC Last administered on 06/25/19 09:53; Admin Dose 15 UNITS; Start 06/18/19 at 08:00 Caspofungin 50 mg/ Sodium Chloride 250 ml @ 250 mls/hr Q24H IVPB Last administered on 06/25/19 13:40; Admin Dose 250 MLS/HR; Start 06/18/19 at 13:00 Midazolam HCl 50 ml @ 1 mls/hr TITRATE IV Last administered on 06/18/19 09:43; Admin Dose 2 MLS/HR; Start 06/17/19 at 15:30 Hydrocortisone (Solu-Cortef) 50 mg Q8 IV Last administered on 06/26/19 06:05; Admin Dose 50 MG; Start 06/18/19 at 14:00 Propofol 100 ml @ 1.656 mls/ hr Q12H IV Last administered on 06/26/19 03:11; Admin Dose 15 MLS/HR; Start 06/18/19 at 10:00 Lactobacillus Acidophilus/ Rhamnosus (Culturelle) 1 cap TID PO Last administered on 06/25/19 20:39; Admin Dose 1 CAP; Start 06/18/19 at 21:00 Bumetanide (Bumex) 1 mg BID DIURETICS IV Last administered on 06/26/19 06:05; Admin Dose 1 MG; Start 06/23/19 at 09:00 Vancomycin/Sodium Chloride 250 ml @ 125 mls/hr Q48H IVPB Last administered on 06/25/19 09:55; Admin Dose 125 MLS/HR; Start 06/23/19 at 09:00 Eye Lubricant (Artificial Tears Oph) 2 drop QID BOTH EYES Last administered on 06/25/19 20:40; Admin Dose 2 DROP; Start 06/23/19 at 09:30 Eye Lubricant ([place] Oint) 1 applic Q6 BOTH EYES Last administered on 06/26/19 05:00; Admin Dose 1 APPLIC; Start 06/23/19 at 12:00 Potassium Chloride (Potassium Chloride Pwd/Soln) 20 meq PER PROTOCOL PRN GTB POTASSIUM REPLACEMENT PROTOCOL Last administered on 06/25/19 09:35; Admin Dose 20 MEQ; Start 06/21/19 at 09:30 Potassium Chloride (Potassium Chloride Pwd/Soln) 30 meq PER PROTOCOL PRN GTB POTASSIUM REPLACEMENT PROTOCOL Last administered on 06/24/19at 16:02; Admin Dose 30 MEQ; Start 06/21/19 at 09:30 Potassium Chloride (Potassium Chloride Pwd/Soln) 40 meq PER PROTOCOL PRN GTB POTASSIUM REPLACEMENT PROTOCOL; Start 06/21/19 at 09:30 CHARAN LAUREANO Jun 26, 2019 08:30
[2019-06-26] MEDS: LEVETIRACETAM (100 MG/ML) 5ML CUP GTB SCH ×2 (08:57→21:48)
[2019-06-26] MEDS: OLANZAPINE 5 MG TAB GTB SCH (08:57)
[2019-06-26] MEDS: BALSAM PERU/CASTOR OIL 60 GM TUBE TOP SCH (08:57)
[2019-06-26] MEDS: DOCUSATE SODIUM 10 MG/ML (10ML CUP) GTB SCH ×2 (08:57→21:48)
[2019-06-26] MEDS: AMIODARONE 200 MG TAB GTB SCH (08:57)
[2019-06-26] MEDS: ARTIFICIAL TEARS 15 ML OPH BOTH EYES SCH ×3 (08:57→17:20)
[2019-06-26] MEDS: FLUVOXAMINE MALEATE 25 MG TABLET GTB SCH (08:57)
[2019-06-26] MEDS: ASPIRIN 81 MG TAB PEG SCH (08:57)
[2019-06-26] MEDS: POLYETHYLENE GLYCOL 17 GM PACKET GTB SCH (08:58)
[2019-06-26] MEDS: LACTOBACILLUS RHAMNOSUS CAP PO SCH ×3 (09:00→21:48)
[2019-06-26] MEDS: INSULIN GLARGINE [LANTus] (100 UNITS/ML) SYG SC SCH (09:04)
[2019-06-26] MEDS: MEROPENEM 1 GM/50ML(PMX) 50 ML IVPB SCH (10:22)
--- NOTE | 2019-06-26 10:56 | CONS ---
Assessment/Plan Assessment/Plan Assessment/Plan (Recall) 84 F c/ dementia and other comorbidities, who presents for evaluation of respiratory Sx.. 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 Upon further clarification, it is noted that the lesion was apparent on previous MRI brain (2013)..decreasing the likelihood of hemorrhage.. The patient is presently obtunded, which likely represents an acute toxic- metabolic on chronic encephalopathy that is multifactorial.. An acute and focal BUS DISPATCHER INTERSTATE process is less likely.. P: Continued medical management and supportive care per primary Limit sedating medications where possible Agree w/ Keppra 500mg bid for now Will follow clinically Consultation Date/Type/Reason Admit Date/Time Jun 10, 2019 at 12:38 Type of Consult Neurology Reason for Consultation ams, abnl head CT Requesting Provider: MALINI GOMEZ Date/Time of Note DATE: 06/26/19 TIME: 10:55 24 HR Interval Summary Free Text/Dictation Continues icu care Exam/Review of Systems Exam Vitals Vital Signs Date Temp Pulse Resp B/P (MAP) Pulse Ox O2 O2 Flow FiO2 Time Delivery Rate 06/26/19 63 26 123/70 96 09:30 (87) 06/26/19 Mechanical 09:00 Ventilator 06/26/19 98.2 08:00 06/26/19 60 08:00 Intake and Output 06/25/19 06/25/19 06/26/19 1515:00 23:00 07:00 IntakeIntake Total 1021.000 ml 484.152 ml 713.84 ml OutputOutput Total 500 ml 620 ml 670 ml BalanceBalance 521.000 ml -135.848 ml 43.84 ml Exam PE: Gen Appearance: No Apparent Distress HEENT: Intubated Cardiovascular: Regular rate Abdomen: Soft Extremities: Dry NE: The patient was comatose. Cranial nerve examination was limited by mental status. Pupils were equal and reactive to light. There was no afferent pupillary defect. Funduscopic examination was limited. Face was grossly symmetric, w/ present corneal and cough reflexes. Tone was normal. Muscle bulk was normal. I did not see fasciculations. The patient was without motor response. Coordination and gait testing was limited by mental status. Arm and leg reflexes were within normal limits and symmetric. Riley's sign was absent. Plantar responses were flexor. Results Result Diagram: 06/26/19 0350 06/26/19 0350 Results 24hrs Laboratory Tests Test 06/25/19 13:40 06/25/19 17:01 06/25/19 20:31 06/26/19 00:35 Bedside Glucose 180 139 114 146 Test 06/26/19 03:50 06/26/19 04:58 06/26/19 08:26 06/26/19 09:00 White Blood Count 19.6 H Red Blood Count 2.62 L Hemoglobin 7.9 L Hematocrit 24.7 L Mean Corpuscular 94.3 Volume Mean Corpuscular 30.2 Hemoglobin Mean Corpuscular 32.0 Hemoglobin Concen t Red Cell 14.6 H Distribution Width Platelet Count 146 # Mean Platelet 11.5 H Volume Immature 1.100 H Granulocytes % Neutrophils % 92.9 H Lymphocytes % 2.0 L Monocytes % 3.9 Eosinophils % 0.0 Basophils % 0.1 Nucleated Red 0.0 Blood Cells % Immature 0.210 H Granulocytes # Neutrophils # 18.2 H Lymphocytes # 0.4 L Monocytes # 0.8 Eosinophils # 0.0 Basophils # 0.0 Nucleated Red 0.0 Blood Cells # Sodium Level 144 Potassium Level 3.6 Chloride Level 105 Carbon Dioxide 35 H Level Anion Gap 4 L Blood Urea 105 H Nitrogen Creatinine 1.10 H Est Glomerular Filtrat Rate mL/min Glucose Level 128 Calcium Level 8.1 L Phosphorus Level 4.5 Magnesium Level 2.3 Bedside Glucose 142 164 Blood Gas Blood arterial Specimen Source Arterial Blood 06/26/2019 8:50:58 Date Drawn AM Arterial Blood pH 7.521 H (Temp corrected) Arterial Blood 38.7 pCO2 (Temp correct) Arterial Blood 62.8 L pO2 (Temp corrected) Arterial Blood 31.0 H HCO3 Arterial Blood 7.6 H Base Excess Arterial Blood 92.6 L Oxygen Saturation James Test ACCEPTAB Arterial Blood Right Radial Gas Puncture Site Arterial 0.3 Blood Carboxyhemo globin Arterial Blood 0.4 Methemoglobin Blood Gas A-a O2 322.4 H Differential Oxyhemoglobin 92.0 L Percent Blood Gas 37.0 Temperature Blood Gas 26.0 Respiration Rate Blood Gas Actual 26 Respiration Rate Blood Gas VENT - AC Modality FiO2 60.0 Blood Gas Tidal 400.0 Volume Blood Gas Low 12.0 PEEP Setting Blood Gas TM Notified Whom Blood Gas 06/26/2019 8:57:36 Notified Time AM Medications Medication Current Medications IV Flush (NS 3 ml) 3 ml PER PROTOCOL IV ; Start 06/10/19 at 12:00 Ondansetron HCl (Zofran Inj) 4 mg Q6H PRN IV NAUSEA/VOMITING; Start 06/10/19 at 12:00 Acetaminophen (Tylenol Tab) 650 mg Q6H PRN PO .PAIN 1-3 OR TEMP Last administered on 06/13/19at 15:52; Admin Dose 650 MG; Start 06/10/19 at 12:00 Acetaminophen/ Hydrocodone Bitart ([place] (5/325)) 1 tab Q6H PRN PO .PAIN 4-6; Start 06/10/19 at 12:00 Morphine Sulfate (morphine) 2 mg Q4H PRN IV .PAIN 7-10 Last administered on 06/15/19at 16:57; Admin Dose 2 MG; Start 06/10/19 at 12:00 Vancomycin HCl (Vanco Iv Per Pharmacy) VANCOMYCIN PER PHARMACY PER PROTOCOL XX ; Start 06/10/19 at 12:30 Amiodarone HCl (Cordarone) 100 mg DAILY GTB Last administered on 06/26/19at 0 8:57; Admin Dose 100 MG; Start 06/11/19 at 09:00 Atorvastatin Calcium (Lipitor) 20 mg QHS GTB Last administered on 06/25/19at 20:39; Admin Dose 20 MG; Start 06/10/19 at 21:00 Levetiracetam (Keppra Liquid) 500 mg BID GTB Last administered on 06/26/19 08:57; Admin Dose 500 MG; Start 06/10/19 at 21:00 Olanzapine (Zyprexa) 5 mg DAILY GTB Last administered on 06/26/19 08:57; Admin Dose 5 MG; Start 06/11/19 at 09:00 Polyethylene Glycol (Miralax) 17 gm DAILY GTB Last administered on 06/24/19 08:22; Admin Dose 17 GM; Start 06/11/19 at 09:00 Miscellaneous Information 1 ea NOTE XX ; Start 06/10/19 at 14:00 Glucose (Glutose) 15 gm Q15M PRN PO DECREASED GLUCOSE; Start 06/10/19 at 14:00 Glucose (Glutose) 22.5 gm Q15M PRN PO DECREASED GLUCOSE; Start 06/10/19 at 14:00 Dextrose (D50w Syringe) 25 ml Q15M PRN IV DECREASED GLUCOSE; Start 06/10/19 at 14:00 Dextrose (D50w Syringe) 50 ml Q15M PRN IV DECREASED GLUCOSE; Start 06/10/19 at 14:00 Glucagon (Glucagen) 1 mg Q15M PRN IM DECREASED GLUCOSE; Start 06/10/19 at 14:00 Glucose (Glutose) 15 gm Q15M PRN BUCCAL DECREASED GLUCOSE; Start 06/10/19 at 14:00 IV Flush (NS 10 ml) 10 ml [id number] PRN IV Line Patency; Start 06/10/19 at 16:00 Fluvoxamine Maleate (Fluvoxamine Maleate) 25 mg DAILY GTB Last administered on 06/26/19 08:57; Admin Dose 25 MG; Start 06/11/19 at 09:00 Aspirin (Aspirin) 81 mg DAILY PEG Last administered on 06/26/19 08:57; Admin Dose 81 MG; Start 06/11/19 at 09:00 Heparin Sodium (Porcine) (Heparin (5000 Units/1ml)) 5,000 unit Q8 SC Last administered on 06/14/19 06:01; Admin Dose 5,000 UNIT; Start 06/11/19 at 14:00; Status Hold Ipratropium [place] (Atrovent 0.02% (Neb)) 0.5 mg Q4H RESP THERAPY PRN HHN SHORTNESS OF BREATH; Start 06/12/19 at 10:00 Levalbuterol (Xopenex Neb) 1.25 mg Q4H RESP THERAPY PRN HHN shortness of breath; Start 06/12/19 at 10:00 Fentanyl 100 ml @ 2.5 mls/hr TITRATE IV Last administered on 06/26/19 02:05; Admin Dose 10 MLS/HR; Start 06/12/19 at 10:00 Phenylephrine HCl 80 mg/Dextrose 250 ml @ 18.75 mls/ hr TITRATE IV Last administered on 06/16/19 08:39; Admin Dose 15.1 MLS/HR; Start 06/12/19 at 14:00 Levalbuterol (Xopenex Hfa) 4 puff Q6H RESP THERAPY INH Last administered on 06/26/19 08:30; Admin Dose 4 PUFF; Start 06/12/19 at 20:00 Ipratropium [place] (Atrovent Hfa) 4 puff Q6H RESP THERAPY INH Last administered on 06/26/19 08:30; Admin Dose 4 PUFF; Start 06/12/19 at 20:00 Norepinephrine 32 mg/Dextrose 250 ml @ 0.47 mls/hr TITRATE IV Last administered on 06/18/19 23:09; Admin Dose 0.94 MLS/HR; Start 06/13/19 at 08:00 Meropenem/Sodium Chloride 50 ml @ 100 mls/hr Q12 IVPB Last administered on 06/26/19 10:22; Admin Dose 100 MLS/HR; Start 06/13/19 at 14:00 Docusate Sodium (Colace Liquid Cup) 100 mg BID GTB Last administered on 06/25/19 20:39; Admin Dose 100 MG; Start 06/14/19 at 12:30 Insulin Aspart (Novolog Insulin Pen) NOVOLOG *MILD* ALGORI... Q4 SC Last admi nistered on 06/26/19 09:03; Admin Dose 1 UNIT; Start 06/16/19 at 21:00 Insulin Glargine (Lantus) 15 units DAILY@0800 SC Last administered on 06/26/19 09:04; Admin Dose 15 UNITS; Start 06/18/19 at 08:00 Caspofungin 50 mg/ Sodium Chloride 250 ml @ 250 mls/hr Q24H IVPB Last administered on 06/25/19 13:40; Admin Dose 250 MLS/HR; Start 06/18/19 at 13:00 Midazolam HCl 50 ml @ 1 mls/hr TITRATE IV Last administered on 06/18/19 09:43; Admin Dose 2 MLS/HR; Start 06/17/19 at 15:30 Hydrocortisone (Solu-Cortef) 50 mg Q8 IV Last administered on 06/26/19 06:05; Admin Dose 50 MG; Start 06/18/19 at 14:00 Propofol 100 ml @ 1.656 mls/ hr Q12H IV Last administered on 06/26/19 03:11; Admin Dose 15 MLS/HR; Start 06/18/19 at 10:00 Lactobacillus Acidophilus/ Rhamnosus (Culturelle) 1 cap TID PO Last admi nistered on 06/25/19 20:39; Admin Dose 1 CAP; Start 06/18/19 at 21:00 Bumetanide (Bumex) 1 mg BID DIURETICS IV Last administered on 06/26/19 06:05; Admin Dose 1 MG; Start 06/23/19 at 09:00 Vancomycin/Sodium Chloride 250 ml @ 125 mls/hr Q48H IVPB Last administered on 06/25/19 09:55; Admin Dose 125 MLS/HR; Start 06/23/19 at 09:00 Eye Lubricant (Artificial Tears Oph) 2 drop QID BOTH EYES Last administered on 06/26/19 08:57; Admin Dose 2 DROP; Start 06/23/19 at 09:30 Eye Lubricant (Akwa Oint) 1 applic Q6 BOTH EYES Last administered on 06/26/19 05:00; Admin Dose 1 APPLIC; Start 06/23/19 at 12:00 Potassium Chloride (Potassium Chloride Pwd/Soln) 20 meq PER PROTOCOL PRN GTB POTASSIUM REPLACEMENT PROTOCOL Last administered on 06/25/19 09:35; Admin Dose 20 MEQ; Start 06/21/19 at 09:30 Potassium Chloride (Potassium Chloride Pwd/Soln) 30 meq PER PROTOCOL PRN GTB POTASSIUM REPLACEMENT PROTOCOL Last administered on 06/24/19 16:02; Admin Dose 30 MEQ; Start 06/21/19 at 09:30 Potassium Chloride (Potassium Chloride Pwd/Soln) 40 meq PER PROTOCOL PRN GTB POTASSIUM REPLACEMENT PROTOCOL; Start 06/21/19 at 09:30 SHANNON LEGER Jun 26, 2019 10:56
[2019-06-26] MEDS: CASPOFUNGIN 50 MG in SOD CHLORIDE 0.9% 250 ML IVPB SCH (12:32)
--- NOTE | 2019-06-26 12:52 | CONS ---
Assessment/Plan Assessment/Plan Assessment/Plan (Daily) 1. acute Hypernatremia due to severe dehydration -resolved 2. acute Hyperkalemia due to FLOYD - Resolved 3. acute kidney injury on CKD III due to ATN from sepsis and Prerenal azotemia 4 . Septic shock due to multifocal PNA and UTI 5. Acute hypoxic respiratory failure due to PNA and Septic shock - Failed BIPAP- Intubated on 06/12/19 , 6. H/O severe dementia 7. H/O HTN 8. H/O HL 9. SNF resident 10. acute on chronic encephalopathy 11 h/o Dysphagia S/p G tube placement 12. Hypocalcemia with Ca 6.7 13. 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 follow up and comfort care will follow up Consultation Date/Type/Reason Admit Date/Time Jun 10, 2019 at 12:38 Initial Consult Date 06/11/19 Type of Consult NEPHROLOGY Requesting Provider: MALINI GOMEZ Date/Time of Note DATE: 06/26/19 TIME: 12:52 Exam/Review of Systems Exam Vitals Vital Signs Date Temp Pulse Resp B/P (MAP) Pulse Ox O2 O2 Flow FiO2 Time Delivery Rate 06/26/19 63 12:00 06/26/19 98.6 26 119/68 96 Mechanical 12:00 (85) Ventilator 06/26/19 60 11:20 Intake and Output 06/25/19 06/25/19 06/26/19 1515:00 23:00 07:00 IntakeIntake Total 1021.000 ml 484.152 ml 713.84 ml OutputOutput Total 500 ml 620 ml 670 ml BalanceBalance 521.000 ml -135.848 ml 43.84 ml Exam General: intubated on ventilator HEENT: ET tube in place, NG tube Neck: Supple, + JVD , no LAD Respiratory: Bilateral coarse BS+, basilar wheezing Cardiovascular: S1 S2 tachycardia, no murmur Gastrointestinal: soft, NT, ND, Thin abdomen, BS+, + PEG tube in place Neurological: sedated intubated on ventilator Results Result Diagram: 06/26/19 0350 06/26/19 0350 Results 24hrs Laboratory Tests Test 06/25/19 13:40 06/25/19 17:01 06/25/19 20:31 06/26/19 00:35 Bedside Glucose 180 139 114 146 Test 06/26/19 03:50 06/26/19 04:58 06/26/19 08:26 06/26/19 09:00 White Blood Count 19.6 H Red Blood Count 2.62 L Hemoglobin 7.9 L Hematocrit 24.7 L Mean Corpuscular 94.3 Volume Mean Corpuscular 30.2 Hemoglobin Mean Corpuscular 32.0 Hemoglobin Concen t Red Cell 14.6 H Distribution Width Platelet Count 146 # Mean Platelet 11.5 H Volume Immature 1.100 H Granulocytes % Neutrophils % 92.9 H Lymphocytes % 2.0 L Monocytes % 3.9 Eosinophils % 0.0 Basophils % 0.1 Nucleated Red 0.0 Blood Cells % Immature 0.210 H Granulocytes # Neutrophils # 18.2 H Lymphocytes # 0.4 L Monocytes # 0.8 Eosinophils # 0.0 Basophils # 0.0 Nucleated Red 0.0 Blood Cells # Sodium Level 144 Potassium Level 3.6 Chloride Level 105 Carbon Dioxide 35 H Level Anion Gap 4 L Blood Urea 105 H Nitrogen Creatinine 1.10 H Est Glomerular Filtrat Rate mL/min Glucose Level 128 Calcium Level 8.1 L Phosphorus Level 4.5 Magnesium Level 2.3 Bedside Glucose 142 164 Blood Gas Blood arterial Specimen Source Arterial Blood 06/26/2019 8:50:58 Date Drawn AM Arterial Blood pH 7.521 H (Temp corrected) Arterial Blood 38.7 pCO2 (Temp correct) Arterial Blood 62.8 L pO2 (Temp corrected) Arterial Blood 31.0 H HCO3 Arterial Blood 7.6 H Base Excess Arterial Blood 92.6 L Oxygen Saturation James Test ACCEPTAB Arterial Blood Right Radial Gas Puncture Site Arterial 0.3 Blood Carboxyhemo globin Arterial Blood 0.4 Methemoglobin Blood Gas A-a O2 322.4 H Differential Oxyhemoglobin 92.0 L Percent Blood Gas 37.0 Temperature Blood Gas 26.0 Respiration Rate Blood Gas Actual 26 Respiration Rate Blood Gas VENT - AC Modality FiO2 60.0 Blood Gas Tidal 400.0 Volume Blood Gas Low 12.0 PEEP Setting Blood Gas TM Notified Whom Blood Gas 06/26/2019 8:57:36 Notified Time AM Test 06/26/19 12:13 Bedside Glucose 154 Medications Medication Current Medications IV Flush (NS 3 ml) 3 ml PER PROTOCOL IV ; Start 06/10/19 at 12:00 Ondansetron HCl (Zofran Inj) 4 mg Q6H PRN IV NAUSEA/VOMITING; Start 06/10/19 at 12:00 Acetaminophen (Tylenol Tab) 650 mg Q6H PRN PO .PAIN 1-3 OR TEMP Last administered on 06/13/19at 15:52; Admin Dose 650 MG; Start 06/10/19 at 12:00 Acetaminophen/ Hydrocodone Bitart ([place] (5/325)) 1 tab Q6H PRN PO .PAIN 4-6; Start 06/10/19 at 12:00 Morphine Sulfate (morphine) 2 mg Q4H PRN IV .PAIN 7-10 Last administered on 06/15/19 16:57; Admin Dose 2 MG; Start 06/10/19 at 12:00 Amiodarone HCl (Cordarone) 100 mg DAILY GTB Last administered on 06/26/19 08:57; Admin Dose 100 MG; Start 06/11/19 at 09:00 Atorvastatin Calcium (Lipitor) 20 mg QHS GTB Last administered on 06/25/19at 20:39; Admin Dose 20 MG; Start 06/10/19 at 21:00 Levetiracetam (Keppra Liquid) 500 mg BID GTB Last administered on 06/26/19 08:57; Admin Dose 500 MG; Start 06/10/19 at 21:00 Olanzapine (Zyprexa) 5 mg DAILY GTB Last administered on 06/26/19 08:57; Admin Dose 5 MG; Start 06/11/19 at 09:00 Polyethylene Glycol (Miralax) 17 gm DAILY GTB Last administered on 06/24/19 08:22; Admin Dose 17 GM; Start 06/11/19 at 09:00 Miscellaneous Information 1 ea NOTE XX ; Start 06/10/19 at 14:00 Glucose (Glutose) 15 gm Q15M PRN PO DECREASED GLUCOSE; Start 06/10/19 at 14:00 Glucose (Glutose) 22.5 gm Q15M PRN PO DECREASED GLUCOSE; Start 06/10/19 at 14:00 Dextrose (D50w Syringe) 25 ml Q15M PRN IV DECREASED GLUCOSE; Start 06/10/19 at 14:00 Dextrose (D50w Syringe) 50 ml Q15M PRN IV DECREASED GLUCOSE; Start 06/10/19 at 14:00 Glucagon (Glucagen) 1 mg Q15M PRN IM DECREASED GLUCOSE; Start 06/10/19 at 14:00 Glucose (Glutose) 15 gm Q15M PRN BUCCAL DECREASED GLUCOSE; Start 06/10/19 at 14:00 IV Flush (NS 10 ml) 10 ml [id number] PRN IV Line Patency; Start 06/10/19 at 16:00 Fluvoxamine Maleate (Fluvoxamine Maleate) 25 mg DAILY GTB Last administered on 06/26/19at 08:57; Admin Dose 25 MG; Start 06/11/19 at 09:00 Aspirin (Aspirin) 81 mg DAILY PEG Last administered on 06/26/19at 08:57; Admin Dose 81 MG; Start 06/11/19 at 09:00 Heparin Sodium (Porcine) (Heparin (5000 Units/1ml)) 5,000 unit Q8 SC Last administered on 06/14/19at 06:01; Admin Dose 5,000 UNIT; Start 06/11/19 at 14:00; Status Hold Ipratropium [place] (Atrovent 0.02% (Neb)) 0.5 mg Q4H RESP THERAPY PRN HHN SHORTNESS OF BREATH; Start 06/12/19 at 10:00 Levalbuterol (Xopenex Neb) 1.25 mg Q4H RESP THERAPY PRN HHN shortness of breath; Start 06/12/19 at 10:00 Fentanyl 100 ml @ 2.5 mls/hr TITRATE IV Last administered on 06/26/19at 12:38; Admin Dose 10 MLS/HR; Start 06/12/19 at 10:00 Phenylephrine HCl 80 mg/Dextrose 250 ml @ 18.75 mls/ hr TITRATE IV Last administered on 7/22/19at 08:39; Admin Dose 15.1 MLS/HR; Start 06/12/19 at 14:00 Levalbuterol (Xopenex Hfa) 4 puff Q6H RESP THERAPY INH Last administered on 06/26/19 08:30; Admin Dose 4 PUFF; Start 06/12/19 at 20:00 Ipratropium [place] (Atrovent Hfa) 4 puff Q6H RESP THERAPY INH Last administered on 06/26/19 08:30; Admin Dose 4 PUFF; Start 06/12/19 at 20:00 Norepinephrine 32 mg/Dextrose 250 ml @ 0.47 mls/hr TITRATE IV Last administered on 06/18/19 23:09; Admin Dose 0.94 MLS/HR; Start 06/13/19 at 08:00 Docusate Sodium (Colace Liquid Cup) 100 mg BID GTB Last administered on 06/25/19 20:39; Admin Dose 100 MG; Start 06/14/19 at 12:30 Insulin Aspart (Novolog Insulin Pen) NOVOLOG *MILD* ALGORI... Q4 SC Last administered on 06/26/19 12:31; Admin Dose 1 UNIT; Start 06/16/19 at 21:00 Insulin Glargine (Lantus) 15 units DAILY@0800 SC Last administered on 06/26/19 09:04; Admin Dose 15 UNITS; Start 06/18/19 at 08:00 Midazolam HCl 50 ml @ 1 mls/hr TITRATE IV Last administered on 06/18/19 09:43; Admin Dose 2 MLS/HR; Start 06/17/19 at 15:30 Hydrocortisone (Solu-Cortef) 50 mg Q8 IV Last administered on 06/26/19 06:05; Admin Dose 50 MG; Start 06/18/19 at 14:00 Propofol 100 ml @ 1.656 mls/ hr Q12H IV Last administered on 06/26/19 03:11; Admin Dose 15 MLS/HR; Start 06/18/19 at 10:00 Lactobacillus Acidophilus/ Rhamnosus (Culturelle) 1 cap TID PO Last administered on 06/26/19 12:12; Admin Dose 1 CAP; Start 06/18/19 at 21:00 Bumetanide (Bumex) 1 mg BID DIURETICS IV Last administered on 06/26/19 06:05; Admin Dose 1 MG; Start 06/23/19 at 09:00 Eye Lubricant (Artificial Tears Oph) 2 drop QID BOTH EYES Last administered on 06/26/19 12:11; Admin Dose 2 DROP; Start 06/23/19 at 09:30 Eye Lubricant (Akwa Oint) 1 applic Q6 BOTH EYES Last administered on 06/26/19 12:11; Admin Dose 1 APPLIC; Start 06/23/19 at 12:00 Potassium Chloride (Potassium Chloride Pwd/Soln) 20 meq PER PROTOCOL PRN GTB POTASSIUM REPLACEMENT PROTOCOL Last administered on 06/25/19at 09:35; Admin Dose 20 MEQ; Start 06/21/19 at 09:30 Potassium Chloride (Potassium Chloride Pwd/Soln) 30 meq PER PROTOCOL PRN GTB POTASSIUM REPLACEMENT PROTOCOL Last administered on 06/24/19at 16:02; Admin Dose 30 MEQ; Start 06/21/19 at 09:30 Potassium Chloride (Potassium Chloride Pwd/Soln) 40 meq PER PROTOCOL PRN GTB POTASSIUM REPLACEMENT PROTOCOL; Start 06/21/19 at 09:30 GERMAN FELIX MD Jun 26, 2019 12:52
--- NOTE | 2019-06-26 13:39 | PN ---
Date/Time of Note Date/Time of Note DATE: 06/26/19 TIME: 13:38 Objective Vitals Vital Signs Date Temp Pulse Resp B/P (MAP) Pulse Ox O2 O2 Flow FiO2 Time Delivery Rate 06/26/19 63 12:00 06/26/19 98.6 26 119/68 96 Mechanical 12:00 (85) Ventilator 06/26/19 60 11:20 Intake and Output 06/25/19 06/25/19 06/26/19 1515:00 23:00 07:00 IntakeIntake Total 1021.000 ml 484.152 ml 713.84 ml OutputOutput Total 500 ml 620 ml 670 ml BalanceBalance 521.000 ml -135.848 ml 43.84 ml Results Result Diagram: 06/26/19 0350 06/26/19 0350 Medications Medications Current Medications IV Flush (NS 3 ml) 3 ml PER PROTOCOL IV ; Start 06/10/19 at 12:00 Ondansetron HCl (Zofran Inj) 4 mg Q6H PRN IV NAUSEA/VOMITING; Start 06/10/19 at 12:00 Acetaminophen (Tylenol Tab) 650 mg Q6H PRN PO .PAIN 1-3 OR TEMP Last administered on 06/13/19at 15:52; Admin Dose 650 MG; Start 06/10/19 at 12:00 Acetaminophen/ Hydrocodone Bitart ([place] (5/325)) 1 tab Q6H PRN PO .PAIN 4-6; Start 06/10/19 at 12:00 Morphine Sulfate (morphine) 2 mg Q4H PRN IV .PAIN 7-10 Last administered on 06/15/19at 16:57; Admin Dose 2 MG; Start 06/10/19 at 12:00 Amiodarone HCl (Cordarone) 100 mg DAILY GTB Last administered on 06/26/19 08:57; Admin Dose 100 MG; Start 06/11/19 at 09:00 Atorvastatin Calcium (Lipitor) 20 mg QHS GTB Last administered on 06/25/19at 20:39; Admin Dose 20 MG; Start 06/10/19 at 21:00 Levetiracetam (Keppra Liquid) 500 mg BID GTB Last administered on 06/26/19 08:57; Admin Dose 500 MG; Start 06/10/19 at 21:00 Olanzapine (Zyprexa) 5 mg DAILY GTB Last administered on 06/26/19 08:57; Admin Dose 5 MG; Start 06/11/19 at 09:00 Polyethylene Glycol (Miralax) 17 gm DAILY GTB Last administered on 06/24/19at 08:22; Admin Dose 17 GM; Start 06/11/19 at 09:00 Miscellaneous Information 1 ea NOTE XX ; Start 06/10/19 at 14:00 Glucose (Glutose) 15 gm Q15M PRN PO DECREASED GLUCOSE; Start 06/10/19 at 14:00 Glucose (Glutose) 22.5 gm Q15M PRN PO DECREASED GLUCOSE; Start 06/10/19 at 14:00 Dextrose (D50w Syringe) 25 ml Q15M PRN IV DECREASED GLUCOSE; Start 06/10/19 at 14:00 Dextrose (D50w Syringe) 50 ml Q15M PRN IV DECREASED GLUCOSE; Start 06/10/19 at 14:00 Glucagon (Glucagen) 1 mg Q15M PRN IM DECREASED GLUCOSE; Start 06/10/19 at 14:00 Glucose (Glutose) 15 gm Q15M PRN BUCCAL DECREASED GLUCOSE; Start 06/10/19 at 14:00 IV Flush (NS 10 ml) 10 ml [id number] PRN IV Line Patency; Start 06/10/19 at 16:00 Fluvoxamine Maleate (Fluvoxamine Maleate) 25 mg DAILY GTB Last administered on 06/26/19at 08:57; Admin Dose 25 MG; Start 06/11/19 at 09:00 Aspirin (Aspirin) 81 mg DAILY PEG Last administered on 06/26/19at 08:57; Admin Dose 81 MG; Start 06/11/19 at 09:00 Heparin Sodium (Porcine) (Heparin (5000 Units/1ml)) 5,000 unit Q8 SC Last administered on 06/14/19at 06:01; Admin Dose 5,000 UNIT; Start 06/11/19 at 14:00; Status Hold Ipratropium [place] (Atrovent 0.02% (Neb)) 0.5 mg Q4H RESP THERAPY PRN HHN SHORTNESS OF BREATH; Start 06/12/19 at 10:00 Levalbuterol (Xopenex Neb) 1.25 mg Q4H RESP THERAPY PRN HHN shortness of breath; Start 06/12/19 at 10:00 Fentanyl 100 ml @ 2.5 mls/hr TITRATE IV Last administered on 06/26/19 12:38; Admin Dose 10 MLS/HR; Start 06/12/19 at 10:00 Phenylephrine HCl 80 mg/Dextrose 250 ml @ 18.75 mls/ hr TITRATE IV Last administered on 06/16/19 08:39; Admin Dose 15.1 MLS/HR; Start 06/12/19 at 14:00 Levalbuterol (Xopenex Hfa) 4 puff Q6H RESP THERAPY INH Last administered on 06/26/19 08:30; Admin Dose 4 PUFF; Start 06/12/19 at 20:00 Ipratropium [place] (Atrovent Hfa) 4 puff Q6H RESP THERAPY INH Last administered on 06/26/19 08:30; Admin Dose 4 PUFF; Start 06/12/19 at 20:00 Norepinephrine 32 mg/Dextrose 250 ml @ 0.47 mls/hr TITRATE IV Last administered on 06/18/19 23:09; Admin Dose 0.94 MLS/HR; Start 06/13/19 at 08:00 Docusate Sodium (Colace Liquid Cup) 100 mg BID GTB Last administered on 20:39; Admin Dose 100 MG; Start 06/14/19 at 12:30 Insulin Aspart (Novolog Insulin Pen) NOVOLOG *MILD* ALGORI... Q4 SC Last administered on 06/26/19 12:31; Admin Dose 1 UNIT; Start 06/16/19 at 21:00 Insulin Glargine (Lantus) 15 units DAILY@0800 SC Last administered on 06/26/19 09:04; Admin Dose 15 UNITS; Start 06/18/19 at 08:00 Midazolam HCl 50 ml @ 1 mls/hr TITRATE IV Last administered on 06/18/19 09:43; Admin Dose 2 MLS/HR; Start 06/17/19 at 15:30 Hydrocortisone (Solu-Cortef) 50 mg Q8 IV Last administered on 06/26/19 06:05; Admin Dose 50 MG; Start 06/18/19 at 14:00 Propofol 100 ml @ 1.656 mls/ hr Q12H IV Last administered on 06/26/19 03:11; Admin Dose 15 MLS/HR; Start 06/18/19 at 10:00 Lactobacillus Acidophilus/ Rhamnosus (Culturelle) 1 cap TID PO Last administered on 06/26/19 12:12; Admin Dose 1 CAP; Start 06/18/19 at 21:00 Bumetanide (Bumex) 1 mg BID DIURETICS IV Last administered on 06/26/19 06:05; Admin Dose 1 MG; Start 06/23/19 at 09:00 Eye Lubricant (Artificial Tears Oph) 2 drop QID BOTH EYES Last administered on 06/26/19 12:11; Admin Dose 2 DROP; Start 06/23/19 at 09:30 Eye Lubricant (Akwa Oint) 1 applic Q6 BOTH EYES Last administered on 06/26/19 12:11; Admin Dose 1 APPLIC; Start 06/23/19 at 12:00 Potassium Chloride (Potassium Chloride Pwd/Soln) 20 meq PER PROTOCOL PRN GTB POTASSIUM REPLACEMENT PROTOCOL Last administered on 06/25/19 09:35; Admin Dose 20 MEQ; Start 06/21/19 at 09:30 Potassium Chloride (Potassium Chloride Pwd/Soln) 30 meq PER PROTOCOL PRN GTB POTASSIUM REPLACEMENT PROTOCOL Last administered on 06/24/19 16:02; Admin Dose 30 MEQ; Start 06/21/19 at 09:30 Potassium Chloride (Potassium Chloride Pwd/Soln) 40 meq PER PROTOCOL PRN GTB POTASSIUM REPLACEMENT PROTOCOL; Start 06/21/19 at 09:30 VTE Prophylaxis Risk score (from [facility])>0 risk: 13 SCD applied (from [facility]): No SCD contraindication: other Lines/Catheters IV Catheter Type: Dorsey in Place: Yes Cont'd dorsey catheter reason: terminal illness/intractable pain Assessment/Plan Hospital Course Subjective Patient still intubated, sedated Objective Physical exam General: Patient is intubated, sedated Mentation: Patient is intubated and sedated Head: Normocephalic atraumatic Eyes: EOMI, pupils reactive to light Neck: Supple, nontender, midline Respiratory: Coarse to auscultation bilaterally Cardiovascular: Regular rate, no obvious murmurs Gastrointestinal: non-tender to palpation, bowel sounds heard. Neurological: Moves all extremities spontaneously to noxious stimuli Skin: No new skin lesions, PEG tube site present Assessment/Plan 1. Acute hypoxic respiratory failure, ARDS secondary to sepsis - CXR noted with increased congestion - cont bumex per nephro - Discussed with son done as family needs to decide on trach vs comfort care. Will discuss with siblings - Pulm on board and appreciate recommendations - wean down vent settings as able. Still on high fio2 req - Continue IV antibiotics per ID recommendations. 2. Multifocal pneumonia - Sputum cx noted with MRSA and Bridget - ID on board and appreciate recommendations 3. Hypokalemia - replace 4. Abdominal distension - KUB noted and US with small ascites, same with repeat - most likely secondary to anasarca. -Persistent, CT of the abdomen pelvis was ordered but unable to be completed due to high PEEP on ventilator and transportation issues 5. Atrial fibrillation with RVR- resolved - back in sinus rhythm - Cardiology consultation appreciated 6. Non-ST elevated NE - Cardiology consultation appreciated and will continue current medications - Very mild elevation - continue aspirin and statin 7. Thrombocytopenia-improving - Very likely due to septic shock - Fibrinogen is elevated, unlikely DIC anemia -likely chronic diease as well as multiple lab draws -replete as needed. 8. Chronic dysphasia - Patient has PEG tube 9. Diabetes mellitus - continue on Lantus and ISS - sugars controlled 10. Chronic encephalopathy - CT of the brain initially showed alarming findings however there appears to be a mixup with patient's name, patient's actual name is Trey Roberts, [id number]. Neurosurgeon was initially consulted for possible brain bleed and other findings however when comparing to the patient's actual chart in 2013, neurosurgeon reviewed the CT and MRI and found a similar findings with no acute emergent change. - Monitor closely, patient appears to be at baseline 11. Dyslipidemia - Continue home meds 12. Mood disorder - Continue home meds 13. Chronic kidney disease - stable - nephrology consultation appreciated 14. Failure to thrive - now DNR per families request 15. Anasarca - cont bumex per nephro recs 16. Disposition - Continue monitoring in ICU while on vent support. family to decide trach vs comfort care. Attempted to reach out to patient's family however they are adamant that they do not want to make a decision at this current time, will call again tomorrow. Explained to them the importance of deciding between tracheostomy as patient is nearing the end date of possible oral intubated ventilation >35 minutes of critical care spent with patient at bedside. MALINI GOMEZ Jun 26, 2019 13:39
--- NOTE | 2019-06-26 14:43 | PN ---
DATE: 06/26/2019 SUBJECTIVE: No acute events. The patient remains intubated and sedated, in no distress. Tolerates tube feedings. WBC today 19.6, neutrophils 92.9, BUN 105, creatinine 1.10. DIAGNOSTICS: Ultrasound of the abdomen revealed small amount of ascites. INDWELLINGS: Endotracheal tube, PEG, Dial, PICC line. PHYSICAL EXAMINATION: GENERAL: Chronically ill-appearing, elderly woman in no distress. HEENT: Head atraumatic, normocephalic. NECK: Supple. Trachea midline. CHEST: Rise symmetrical. Breath sounds diminished to bases. HEART: S1, S2. ABDOMEN: Distended. Bowel tones are hypoactive. EXTREMITIES: Without cyanosis. SKIN: Patient has ongoing anasarca. ASSESSMENT: 1. Status post septic shock. 2. Status post pneumonia and urinary tract infections. 3. Acute respiratory distress syndrome. 4. Atrial fibrillation. 5. Non-ST elevation myocardial infarction. PLAN: The patient completed 2 weeks of antibiotics. We are going to discontinue them and monitor he r. If she spikes fever, we will reculture her. Ongoing discussion with family regarding goals of ca re. Dictated By: JACKIE CORTÉS RADIOLOGY TEACHER for LARISSA FARAH MD NI/NTS Conf#: [id number] DID#: [id number] CC: MALINI GOMEZ MD;*EndCC*
[2019-06-26] MEDS: ATORVASTATIN 20 MG TAB GTB SCH (21:48)
[2019-06-27] VITALS (59 sets, daily range): BP systolic 88–163; BP diastolic 56–91; PULSE 62–133; RESP 19–40
[2019-06-27] MEDS: IPRATROPIUM (HFA) 12.9 GM INHALER INH SCH ×4 (01:07→20:19)
[2019-06-27] MEDS: LEVALBUTEROL (HFA) 15 GM INHALER INH SCH ×4 (01:07→20:19)
[2019-06-27] MEDS: ARTIFICIAL TEARS 15 ML OPH BOTH EYES SCH ×5 (01:18→20:55)
[2019-06-27] MEDS: OCULAR LUBRICANT 3.5 GM OPH OINT BOTH EYES SCH ×4 (01:19→16:48)
[2019-06-27] MEDS: INSULIN ASPART [NOVOLOG] 3 ML PEN SC SCH ×6 (01:22→21:00)
[2019-06-27] MEDS: HYDROCORTISONE 100 MG INJ IV SCH ×3 (05:49→21:05)
[2019-06-27] MEDS: BUMETANIDE 1 MG INJ IV SCH (05:49)
[2019-06-27] MEDS: PROPOFOL 100 ML IV SCH ×2 (05:50→16:49)
--- NOTE | 2019-06-27 09:07 | CONS ---
Assessment/Plan Assessment/Plan Assessment/Plan (Daily) Ventilator setting; assist control of 26, PEEP of 10, tidal volume 400, 60% FiO2. Patient is currently on fentanyl 100 mics per hour, propofol 25 mics per kilogram per minute. Assessment and recommendations; 1. Patient admitted with severe bilateral pneumonia with ARDS with persistent hypoxemia despite adequate antimicrobial administration. 2. History of seizures and diabetes. 3. Anemia and thrombocytopenia. 4. Advanced dementia. 5. Prior history of G-tube placement. Continue current supportive care. Patient's niece apparently is on her way from [place] and will likely decide about possible palliative care. Prognosis is very poor. Consultation Date/Type/Reason Admit Date/Time Jun 10, 2019 at 12:38 Initial Consult Date 06/11/19 Type of Consult Pulmonary/critical care Patient is an 84-year-old [place] lady who was transferred to to the hospital from assisted with hypoxemia. Upon evaluation patient is been diagnosed with sepsis due to pneumonia. Patient has advanced dementia and is unable to give any history by herself whatsoever. Patient however is appearing tachypneic. Past medical history; 1. History of chronic atrial fibrillation. 2. Advanced dementia. 3. History of G-tube placement. 4. History of diabetes. 5. History of hypertension. Medications; reviewed. Allergies; none. Social history, family history, occupational history is are not available. Review of systems; unable to be obtained. General exam; elderly woman, on BiPAP. Noncommunicative. Tachypneic. Requesting Provider: MALINI GOMEZ Date/Time of Note DATE: 06/27/19 TIME: 09:05 24 HR Interval Summary Free Text/Dictation Patient's condition is critical. Still remains hypoxemic, requiring fairly high FiO2. General exam; elderly woman, orally intubated, sedated, currently in no distress. Exam/Review of Systems Exam Vitals Vital Signs Date Temp Pulse Resp B/P (MAP) Pulse Ox O2 O2 Flow FiO2 Time Delivery Rate 06/27/19 77 08:00 06/27/19 26 107/66 91 07:00 (80) 06/27/19 60 05:10 06/27/19 98.5 04:00 06/26/19 Mechanical 23:30 Ventilator Intake and Output 06/26/19 06/26/19 06/27/19 1515:00 23:00 07:00 IntakeIntake Total 1040.24 ml 731.96 ml 751.40 ml OutputOutput Total 500 ml 490 ml 360 ml BalanceBalance 540.24 ml 241.96 ml 391.40 ml Exam H EENT exam; supple neck, no JVD. No lymphadenopathy. Midline trachea. No thyromegaly. Orally intubated. Patient has multiple carious teeth. No neck masses. Pupils are small bilaterally. Chest exam; diminished breath sounds bilaterally with bilateral crackles. S1-S2 audible, no murmurs. Regular rhythm. Abdomen exam; soft, no organomegaly. G-tube in place. Bowel sounds are audible. Extremity exam; 2+ anasarca. 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 Results Result Diagram: 06/27/19 0400 06/27/19 0400 Results 24hrs Laboratory Tests Test 06/26/19 12:13 06/26/19 16:24 06/26/19 21:50 06/27/19 01:17 Bedside Glucose 154 139 154 156 Test 06/27/19 04:00 06/27/19 05:53 White Blood Count 19.7 H Red Blood Count 2.62 L Hemoglobin 8.1 L Hematocrit 24.9 L Mean Corpuscular Volume 95.0 Mean Corpuscular 30.9 Hemoglobin Mean Corpuscular 32.5 Hemoglobin Concent Red Cell Distribution 14.5 Width Platelet Count 161 Mean Platelet Volume 11.7 H Immature Granulocytes % 1.200 H Neutrophils % 88.1 H Lymphocytes % 3.9 L Monocytes % 5.7 Eosinophils % 1.0 Basophils % 0.1 Nucleated Red Blood 0.0 Cells % Immature Granulocytes # 0.240 H Neutrophils # 17.4 H Lymphocytes # 0.8 Monocytes # 1.1 H Eosinophils # 0.2 Basophils # 0.0 Nucleated Red Blood 0.0 Cells # Sodium Level 147 H Potassium Level 3.5 Chloride Level 106 Carbon Dioxide Level 34 H Anion Gap 7 Blood Urea Nitrogen 113 H Creatinine 1.06 H Est Glomerular Filtrat Rate mL/min Glucose Level 137 Calcium Level 7.9 L Phosphorus Level 4.5 Magnesium Level 2.5 Bedside Glucose 160 Medications Medication Current Medications IV Flush (NS 3 ml) 3 ml PER PROTOCOL IV ; Start 06/10/19 at 12:00 Ondansetron HCl (Zofran Inj) 4 mg Q6H PRN IV NAUSEA/VOMITING; Start 06/10/19 at 12:00 Acetaminophen (Tylenol Tab) 650 mg Q6H PRN PO .PAIN 1-3 OR TEMP Last administered on 06/13/19 15:52; Admin Dose 650 MG; Start 06/10/19 at 12:00 Acetaminophen/ Hydrocodone Bitart ([place] (5/325)) 1 tab Q6H PRN PO .PAIN 4-6; Start 06/10/19 at 12:00 Morphine Sulfate (morphine) 2 mg Q4H PRN IV .PAIN 7-10 Last administered on 06/15/19at 16:57; Admin Dose 2 MG; Start 06/10/19 at 12:00 Amiodarone HCl (Cordarone) 100 mg DAILY GTB Last administered on 06/26/19 08: 57; Admin Dose 100 MG; Start 06/11/19 at 09:00 Atorvastatin Calcium (Lipitor) 20 mg QHS GTB Last administered on 06/26/19 21:48; Admin Dose 20 MG; Start 06/10/19 at 21:00 Levetiracetam (Keppra Liquid) 500 mg BID GTB Last administered on 06/26/19 21:48; Admin Dose 500 MG; Start 06/10/19 at 21:00 Olanzapine (Zyprexa) 5 mg DAILY GTB Last administered on 06/26/19 08:57; Admin Dose 5 MG; Start 06/11/19 at 09:00 Polyethylene Glycol (Miralax) 17 gm DAILY GTB Last administered on 06/24/19 08:22; Admin Dose 17 GM; Start 06/11/19 at 09:00 Miscellaneous Information 1 ea NOTE XX ; Start 06/10/19 at 14:00 Glucose (Glutose) 15 gm Q15M PRN PO DECREASED GLUCOSE; Start 06/10/19 at 14:00 Glucose (Glutose) 22.5 gm Q15M PRN PO DECREASED GLUCOSE; Start 06/10/19 at 14:00 Dextrose (D50w Syringe) 25 ml Q15M PRN IV DECREASED GLUCOSE; Start 06/10/19 at 14:00 Dextrose (D50w Syringe) 50 ml Q15M PRN IV DECREASED GLUCOSE; Start 06/10/19 at 14:00 Glucagon (Glucagen) 1 mg Q15M PRN IM DECREASED GLUCOSE; Start 06/10/19 at 14:00 Glucose (Glutose) 15 gm Q15M PRN BUCCAL DECREASED GLUCOSE; Start 06/10/19 at 14 :00 IV Flush (NS 10 ml) 10 ml [id number] PRN IV Line Patency; Start 06/10/19 at 16:00 Fluvoxamine Maleate (Fluvoxamine Maleate) 25 mg DAILY GTB Last administered on 06/26/19 08:57; Admin Dose 25 MG; Start 06/11/19 at 09:00 Aspirin (Aspirin) 81 mg DAILY PEG Last administered on 06/26/19 08:57; Admin Dose 81 MG; Start 06/11/19 at 09:00 Heparin Sodium (Porcine) (Heparin (5000 Units/1ml)) 5,000 unit Q8 SC Last administered on 06/14/19 06:01; Admin Dose 5,000 UNIT; Start 06/11/19 at 14:00; Status Hold Ipratropium [place] (Atrovent 0.02% (Neb)) 0.5 mg Q4H RESP THERAPY PRN HHN SHORTNESS OF BREATH; Start 06/12/19 at 10:00 Levalbuterol (Xopenex Neb) 1.25 mg Q4H RESP THERAPY PRN HHN shortness of breath; Start 06/12/19 at 10:00 Fentanyl 100 ml @ 2.5 mls/hr TITRATE IV Last administered on 06/26/19 21:51; Admin Dose 10 MLS/HR; Start 06/12/19 at 10:00 Phenylephrine HCl 80 mg/Dextrose 250 ml @ 18.75 mls/ hr TITRATE IV Last administered on 06/16/19 08:39; Admin Dose 15.1 MLS/HR; Start 06/12/19 at 14:00 Levalbuterol (Xopenex Hfa) 4 puff Q6H RESP THERAPY INH Last administered on 06/27/19 07:43; Admin Dose 4 PUFF; Start 06/12/19 at 20:00 Ipratropium [place] (Atrovent Hfa) 4 puff Q6H RESP THERAPY INH Last administered on 06/27/19 07:43; Admin Dose 4 PUFF; Start 06/12/19 at 20:00 Norepinephrine 32 mg/Dextrose 250 ml @ 0.47 mls/hr TITRATE IV Last administered on 06/18/19 23:09; Admin Dose 0.94 MLS/HR; Start 06/13/19 at 08:00 Docusate Sodium (Colace Liquid Cup) 100 mg BID GTB Last administered on 06/26/19 21:48; Admin Dose 100 MG; Start 06/14/19 at 12:30 Insulin Aspart (Novolog Insulin Pen) NOVOLOG *MILD* ALGORI... Q4 SC Last administered on 06/27/19 06:00; Admin Dose 1 UNIT; Start 06/16/19 at 21:00 Insulin Glargine (Lantus) 15 units DAILY@0800 SC Last administered on 06/26/19 09:04; Admin Dose 15 UNITS; Start 06/18/19 at 08:00 Midazolam HCl 50 ml @ 1 mls/hr TITRATE IV Last administered on 06/18/19 09:43; Admin Dose 2 MLS/HR; Start 06/17/19 at 15:30 Hydrocortisone (Solu-Cortef) 50 mg Q8 IV Last administered on 06/27/19 05:49; Admin Dose 50 MG; Start 06/18/19 at 14:00 Propofol 100 ml @ 1.656 mls/ hr Q12H IV Last administered on 06/27/19 05:50; Admin Dose 8.28 MLS/HR; Start 06/18/19 at 10:00 Lactobacillus Acidophilus/ Rhamnosus (Culturelle) 1 cap TID PO Last administered on 06/26/19 21:48; Admin Dose 1 CAP; Start 06/18/19 at 21:00 Bumetanide (Bumex) 1 mg BID DIURETICS IV Last administered on 06/27/19 05:49; Admin Dose 1 MG; Start 06/23/19 at 09:00 Eye Lubricant (Artificial Tears Oph) 2 drop QID BOTH EYES Last administered on 06/27/19 01:18; Admin Dose 2 DROP; Start 06/23/19 at 09:30 Eye Lubricant ([place] Oint) 1 applic Q6 BOTH EYES Last administered on 06/27/19 05:49; Admin Dose 1 APPLIC; Start 06/23/19 at 12:00 Potassium Chloride (Potassium Chloride Pwd/Soln) 20 meq PER PROTOCOL PRN GTB POTASSIUM REPLACEMENT PROTOCOL Last administered on 7/31/19at 09:35; Admin Dose 20 MEQ; Start 06/21/19 at 09:30 Potassium Chloride (Potassium Chloride Pwd/Soln) 30 meq PER PROTOCOL PRN GTB POTASSIUM REPLACEMENT PROTOCOL Last administered on 06/24/19at 16:02; Admin Dose 30 MEQ; Start 06/21/19 at 09:30 Potassium Chloride (Potassium Chloride Pwd/Soln) 40 meq PER PROTOCOL PRN GTB POTASSIUM REPLACEMENT PROTOCOL; Start 06/21/19 at 09:30 CHARAN LAUREANO Jun 27, 2019 09:07
[2019-06-27] MEDS: POLYETHYLENE GLYCOL 17 GM PACKET GTB SCH (09:08)
[2019-06-27] MEDS: OLANZAPINE 5 MG TAB GTB SCH (09:08)
[2019-06-27] MEDS: DOCUSATE SODIUM 10 MG/ML (10ML CUP) GTB SCH ×2 (09:08→20:55)
[2019-06-27] MEDS: FLUVOXAMINE MALEATE 25 MG TABLET GTB SCH (09:09)
[2019-06-27] MEDS: LACTOBACILLUS RHAMNOSUS CAP PO SCH ×3 (09:09→20:54)
[2019-06-27] MEDS: ASPIRIN 81 MG TAB PEG SCH (09:09)
[2019-06-27] MEDS: AMIODARONE 200 MG TAB GTB SCH (09:09)
[2019-06-27] MEDS: LEVETIRACETAM (100 MG/ML) 5ML CUP GTB SCH ×2 (09:09→20:54)
[2019-06-27] MEDS: BALSAM PERU/CASTOR OIL 60 GM TUBE TOP SCH (09:10)
[2019-06-27] MEDS: INSULIN GLARGINE [LANTus] (100 UNITS/ML) SYG SC SCH (09:14)
--- NOTE | 2019-06-27 11:04 | CONS ---
Assessment/Plan Assessment/Plan Assessment/Plan (Daily) 1. acute Hypernatremia due to severe dehydration -resolved 2. acute Hyperkalemia due to FLOYD - Resolved 3. acute kidney injury on CKD III due to ATN from sepsis and Prerenal azotemia 4 . Septic shock due to multifocal PNA and UTI 5. Acute hypoxic respiratory failure due to PNA and Septic shock - Failed BIPAP- Intubated on 06/12/19 , 6. H/O severe dementia 7. H/O HTN 8. H/O HL 9. SNF resident 10. acute on chronic encephalopathy 11 h/o Dysphagia S/p G tube placement 12. Hypocalcemia with Ca 6.7 13. UTI with Urine cx growing ESBL Klebsiella Plan: BUN has been rising to 113, Cr normal, K normal,stop IV bumex due to uremia and decrease solu-medrol 20 mg Q 8 hr- DNR code status - Poor candidate for dialysis due to age, comorbidiites, consider palliative care follow up and comfort care - I will happy to give my input to family currenlty on IV abx meropenem for ESBL Klebsiella UTI, Sputum Cx grew Bridget Albicans and MRSA- pt is on IV cancidas, and IV vancomycin- Renally dose all abx and monitor electrolytes Ventilator Management as per pulmonary -- not doing well, still requiring high PEEP will follow up Consultation Date/Type/Reason Admit Date/Time Jun 10, 2019 at 12:38 Initial Consult Date 06/11/19 Type of Consult NEPHROLOGY Requesting Provider: MALINI GOMEZ Date/Time of Note DATE: 06/27/19 TIME: 11:04 24 HR Interval Summary Free Text/Dictation pt remains intubated, BUN rising, Exam/Review of Systems Exam Vitals Vital Signs Date Temp Pulse Resp B/P (MAP) Pulse Ox O2 O2 Flow FiO2 Time Delivery Rate 06/27/19 83 24 106/60 90 10:30 (75) 06/27/19 Mechanical 10:00 Ventilator 06/27/19 98.6 08:00 06/27/19 60 08:00 Intake and Output 06/26/19 06/26/19 06/27/19 1515:00 23:00 07:00 IntakeIntake Total 1040.24 ml 731.96 ml 819.68 ml OutputOutput Total 500 ml 490 ml 410 ml BalanceBalance 540.24 ml 241.96 ml 409.68 ml Exam General: intubated on ventilator HEENT: ET tube in place, NG tube Neck: Supple, + JVD , no LAD Respiratory: Bilateral coarse BS+, basilar wheezing Cardiovascular: S1 S2 tachycardia, no murmur Gastrointestinal: soft, NT, ND, Thin abdomen, BS+, + PEG tube in place Neurological: sedated intubated on ventilator Results Result Diagram: 06/27/19 0400 06/27/19 0400 Results 24hrs Laboratory Tests Test 06/26/19 12:13 06/26/19 16:24 06/26/19 21:50 06/27/19 01:17 Bedside Glucose 154 139 154 156 Test 06/27/19 04:00 06/27/19 05:53 06/27/19 09:07 White Blood Count 19.7 H Red Blood Count 2.62 L Hemoglobin 8.1 L Hematocrit 24.9 L Mean Corpuscular Volume 95.0 Mean Corpuscular 30.9 Hemoglobin Mean Corpuscular 32.5 Hemoglobin Concent Red Cell Distribution 14.5 Width Platelet Count 161 Mean Platelet Volume 11.7 H Immature Granulocytes % 1.200 H Neutrophils % 88.1 H Lymphocytes % 3.9 L Monocytes % 5.7 Eosinophils % 1.0 Basophils % 0.1 Nucleated Red Blood 0.0 Cells % Immature Granulocytes # 0.240 H Neutrophils # 17.4 H Lymphocytes # 0.8 Monocytes # 1.1 H Eosinophils # 0.2 Basophils # 0.0 Nucleated Red Blood 0.0 Cells # Sodium Level 147 H Potassium Level 3.5 Chloride Level 106 Carbon Dioxide Level 34 H Anion Gap 7 Blood Urea Nitrogen 113 H Creatinine 1.06 H Est Glomerular Filtrat Rate mL/min Glucose Level 137 Calcium Level 7.9 L Phosphorus Level 4.5 Magnesium Level 2.5 Bedside Glucose 160 173 Medications Medication Current Medications IV Flush (NS 3 ml) 3 ml PER PROTOCOL IV ; Start 06/10/19 at 12:00 Ondansetron HCl (Zofran Inj) 4 mg Q6H PRN IV NAUSEA/VOMITING; Start 06/10/19 at 12:00 Acetaminophen (Tylenol Tab) 650 mg Q6H PRN PO .PAIN 1-3 OR TEMP Last admin istered on 06/13/19at 15:52; Admin Dose 650 MG; Start 06/10/19 at 12:00 Acetaminophen/ Hydrocodone Bitart ([place] (5/325)) 1 tab Q6H PRN PO .PAIN 4-6; Start 06/10/19 at 12:00 Morphine Sulfate (morphine) 2 mg Q4H PRN IV .PAIN 7-10 Last administered on 06/15/19at 16:57; Admin Dose 2 MG; Start 06/10/19 at 12:00 Amiodarone HCl (Cordarone) 100 mg DAILY GTB Last administered on 06/27/19at 09:09; Admin Dose 100 MG; Start 06/11/19 at 09:00 Atorvastatin Calcium (Lipitor) 20 mg QHS GTB Last administered on 06/26/19at 21:48; Admin Dose 20 MG; Start 06/10/19 at 21:00 Levetiracetam (Keppra Liquid) 500 mg BID GTB Last administered on 06/27/19 09:09; Admin Dose 500 MG; Start 06/10/19 at 21:00 Olanzapine (Zyprexa) 5 mg DAILY GTB Last administered on 06/27/19at 09:08; Admin Dose 5 MG; Start 06/11/19 at 09:00 Polyethylene Glycol (Miralax) 17 gm DAILY GTB Last administered on 06/27/19 09:08; Admin Dose 17 GM; Start 06/11/19 at 09:00 Miscellaneous Information 1 ea NOTE XX ; Start 06/10/19 at 14:00 Glucose (Glutose) 15 gm Q15M PRN PO DECREASED GLUCOSE; Start 06/10/19 at 14:00 Glucose (Glutose) 22.5 gm Q15M PRN PO DECREASED GLUCOSE; Start 06/10/19 at 14:00 Dextrose (D50w Syringe) 25 ml Q15M PRN IV DECREASED GLUCOSE; Start 06/10/19 at 14:00 Dextrose (D50w Syringe) 50 ml Q15M PRN IV DECREASED GLUCOSE; Start 06/10/19 at 14:00 Glucagon (Glucagen) 1 mg Q15M PRN IM DECREASED GLUCOSE; Start 06/10/19 at 14:00 Glucose (Glutose) 15 gm Q15M PRN BUCCAL DECREASED GLUCOSE; Start 06/10/19 at 14:00 IV Flush (NS 10 ml) 10 ml [id number] PRN IV Line Patency; Start 06/10/19 at 16:00 Fluvoxamine Maleate (Fluvoxamine Maleate) 25 mg DAILY GTB Last administered on 06/27/19 09:09; Admin Dose 25 MG; Start 06/11/19 at 09:00 Aspirin (Aspirin) 81 mg DAILY PEG Last administered on 06/27/19 09:09; Admin Dose 81 MG; Start 06/11/19 at 09:00 Heparin Sodium (Porcine) (Heparin (5000 Units/1ml)) 5,000 unit Q8 SC Last a dministered on 06/14/19 06:01; Admin Dose 5,000 UNIT; Start 06/11/19 at 14:00; Status Hold Ipratropium [place] (Atrovent 0.02% (Neb)) 0.5 mg Q4H RESP THERAPY PRN HHN SHORTNESS OF BREATH; Start 06/12/19 at 10:00 Levalbuterol (Xopenex Neb) 1.25 mg Q4H RESP THERAPY PRN HHN shortness of breath; Start 06/12/19 at 10:00 Fentanyl 100 ml @ 2.5 mls/hr TITRATE IV Last administered on 06/26/19 21:51; A dmin Dose 10 MLS/HR; Start 06/12/19 at 10:00 Phenylephrine HCl 80 mg/Dextrose 250 ml @ 18.75 mls/ hr TITRATE IV Last administered on 06/16/19 08:39; Admin Dose 15.1 MLS/HR; Start 06/12/19 at 14:00 Levalbuterol (Xopenex Hfa) 4 puff Q6H RESP THERAPY INH Last administered on 06/27/19 07:43; Admin Dose 4 PUFF; Start 06/12/19 at 20:00 Ipratropium [place] (Atrovent Hfa) 4 puff Q6H RESP THERAPY INH Last administered on 06/27/19 07:43; Admin Dose 4 PUFF; Start 06/12/19 at 20:00 Norepinephrine 32 mg/Dextrose 250 ml @ 0.47 mls/hr TITRATE IV Last administered on 06/18/19 23:09; Admin Dose 0.94 MLS/HR; Start 06/13/19 at 08:00 Docusate Sodium (Colace Liquid Cup) 100 mg BID GTB Last administered on 06/27/19 09:08; Admin Dose 100 MG; Start 06/14/19 at 12:30 Insulin Aspart (Novolog Insulin Pen) NOVOLOG *MILD* ALGORI... Q4 SC Last administered on 06/27/19 09:13; Admin Dose 1 UNIT; Start 06/16/19 at 21:00 Insulin Glargine (Lantus) 15 units DAILY@0800 SC Last administered on 06/27/19 09:14; Admin Dose 15 UNITS; Start 06/18/19 at 08:00 Midazolam HCl 50 ml @ 1 mls/hr TITRATE IV Last administered on 06/18/19 09:43; Admin Dose 2 MLS/HR; Start 06/17/19 at 15:30 Hydrocortisone (Solu-Cortef) 50 mg Q8 IV Last administered on 06/27/19 05:49; Admin Dose 50 MG; Start 06/18/19 at 14:00 Propofol 100 ml @ 1.656 mls/ hr Q12H IV Last administered on 06/27/19 05:50; Admin Dose 8.28 MLS/HR; Start 06/18/19 at 10:00 Lactobacillus Acidophilus/ Rhamnosus (Culturelle) 1 cap TID PO Last administered on 06/27/19 09:09; Admin Dose 1 CAP; Start 06/18/19 at 21:00 Bumetanide (Bumex) 1 mg BID DIURETICS IV Last administered on 06/27/19 05:49; Admin Dose 1 MG; Start 06/23/19 at 09:00 Eye Lubricant (Artificial Tears Oph) 2 drop QID BOTH EYES Last administered on 06/27/19 09:10; Admin Dose 2 DROP; Start 06/23/19 at 09:30 Eye Lubricant (Akwa Oint) 1 applic Q6 BOTH EYES Last administered on 06/27/19 05:49; Admin Dose 1 APPLIC; Start 06/23/19 at 12:00 Potassium Chloride (Potassium Chloride Pwd/Soln) 20 meq PER PROTOCOL PRN GTB POTASSIUM REPLACEMENT PROTOCOL Last administered on 06/25/19 09:35; Admin Dose 20 MEQ; Start 06/21/19 at 09:30 Potassium Chloride (Potassium Chloride Pwd/Soln) 30 meq PER PROTOCOL PRN GTB POTASSIUM REPLACEMENT PROTOCOL Last administered on 7/30/19at 16:02; Admin Dose 30 MEQ; Start 06/21/19 at 09:30 Potassium Chloride (Potassium Chloride Pwd/Soln) 40 meq PER PROTOCOL PRN GTB POTASSIUM REPLACEMENT PROTOCOL; Start 06/21/19 at 09:30 GERMAN FELIX MD Jun 27, 2019 11:04
[2019-06-27] MEDS: ALBUMIN HUMAN 25% 100 ML IV SCH ×2 (11:32→18:33)
[2019-06-27] MEDS: FENTAnyl (DRIP) 1000 mcg/100mL 100 ML IV SCH ×2 (11:46→21:12)
--- NOTE | 2019-06-27 13:25 | CONS ---
Assessment/Plan Assessment/Plan Hospital Course (Demo Recall) SUBJECTIVE: No acute events. The patient remains intubated and sedated, in no distress. INDWELLINGS: Endotracheal tube, PEG, Dial, PICC line. PHYSICAL EXAMINATION: GENERAL: Chronically ill-appearing, elderly woman in no distress. HEENT: Head atraumatic, normocephalic. NECK: Supple. Trachea midline. CHEST: Rise symmetrical. Breath sounds diminished to bases. HEART: S1, S2. ABDOMEN: Distended. Bowel tones are hypoactive. EXTREMITIES: Without cyanosis. SKIN: Patient has ongoing anasarca. ASSESSMENT: 1. Status post septic shock. 2. Status post pneumonia and urinary tract infections. 3. Acute respiratory distress syndrome. 4. Atrial fibrillation. 5. Non-ST elevation myocardial infarction. PLAN: Clinically unchanged, completed antibiotic course, Alfredo ragland iscontinued this a.m., continue present care, repeat cultures for temperature of 101 and above, ongoing discussions with family regarding goals of care Consultation Date/Type/Reason Admit Date/Time Jun 10, 2019 at 12:38 Initial Consult Date 06/11/19 Type of Consult id Requesting Provider: MALINI GOMEZ Date/Time of Note DATE: 06/27/19 TIME: 13:24 Exam/Review of Systems Exam Vitals Vital Signs Date Temp Pulse Resp B/P (MAP) Pulse Ox O2 O2 Flow FiO2 Time Delivery Rate 06/27/19 98 26 123/67 91 Mechanical 13:00 (85) Ventilator 06/27/19 70 12:40 06/27/19 98.7 12:00 Intake and Output 06/26/19 06/26/19 06/27/19 1515:00 23:00 07:00 IntakeIntake Total 1040.24 ml 731.96 ml 819.68 ml OutputOutput Total 500 ml 490 ml 410 ml BalanceBalance 540.24 ml 241.96 ml 409.68 ml Results Result Diagram: 06/27/19 0400 06/27/19 0400 Results 24hrs Laboratory Tests Test 06/26/19 16:24 06/26/19 21:50 06/27/19 01:17 06/27/19 04:00 Bedside Glucose 139 154 156 White Blood Count 19.7 H Red Blood Count 2.62 L Hemoglobin 8.1 L Hematocrit 24.9 L Mean Corpuscular Volume 95.0 Mean Corpuscular 30.9 Hemoglobin Mean Corpuscular 32.5 Hemoglobin Concent Red Cell Distribution 14.5 Width Platelet Count 161 Mean Platelet Volume 11.7 H Immature Granulocytes % 1.200 H Neutrophils % 88.1 H Lymphocytes % 3.9 L Monocytes % 5.7 Eosinophils % 1.0 Basophils % 0.1 Nucleated Red Blood 0.0 Cells % Immature Granulocytes # 0.240 H Neutrophils # 17.4 H Lymphocytes # 0.8 Monocytes # 1.1 H Eosinophils # 0.2 Basophils # 0.0 Nucleated Red Blood 0.0 Cells # Sodium Level 147 H Potassium Level 3.5 Chloride Level 106 Carbon Dioxide Level 34 H Anion Gap 7 Blood Urea Nitrogen 113 H Creatinine 1.06 H Est Glomerular Filtrat Rate mL/min Glucose Level 137 Calcium Level 7.9 L Phosphorus Level 4.5 Magnesium Level 2.5 Test 06/27/19 05:53 06/27/19 09:07 06/27/19 12:56 Bedside Glucose 160 173 150 Medications Medication Current Medications IV Flush (NS 3 ml) 3 ml PER PROTOCOL IV ; Start 06/10/19 at 12:00 Ondansetron HCl (Zofran Inj) 4 mg Q6H PRN IV NAUSEA/VOMITING; Start 06/10/19 at 12:00 Acetaminophen (Tylenol Tab) 650 mg Q6H PRN PO .PAIN 1-3 OR TEMP Last administered on 06/13/19at 15:52; Admin Dose 650 MG; Start 06/10/19 at 12:00 Acetaminophen/ Hydrocodone Bitart ([place] (5/325)) 1 tab Q6H PRN PO .PAIN 4-6; Start 06/10/19 at 12:00 Morphine Sulfate (morphine) 2 mg Q4H PRN IV .PAIN 7-10 Last administered on 06/15/19at 16:57; Admin Dose 2 MG; Start 06/10/19 at 12:00 Amiodarone HCl (Cordarone) 100 mg DAILY GTB Last administered on 06/27/19at 09:09; Admin Dose 100 MG; Start 06/11/19 at 09:00 Atorvastatin Calcium (Lipitor) 20 mg QHS GTB Last administered on 06/26/19at 21:48; Admin Dose 20 MG; Start 06/10/19 at 21:00 Levetiracetam (Keppra Liquid) 500 mg BID GTB Last administered on 06/27/19 09:09; Admin Dose 500 MG; Start 06/10/19 at 21:00 Olanzapine (Zyprexa) 5 mg DAILY GTB Last administered on 06/27/19 09:08; Admin Dose 5 MG; Start 06/11/19 at 09:00 Polyethylene Glycol (Miralax) 17 gm DAILY GTB Last administered on 06/27/19 09:08; Admin Dose 17 GM; Start 06/11/19 at 09:00 Miscellaneous Information 1 ea NOTE XX ; Start 06/10/19 at 14:00 Glucose (Glutose) 15 gm Q15M PRN PO DECREASED GLUCOSE; Start 06/10/19 at 14:00 Glucose (Glutose) 22.5 gm Q15M PRN PO DECREASED GLUCOSE; Start 06/10/19 at 14:00 Dextrose (D50w Syringe) 25 ml Q15M PRN IV DECREASED GLUCOSE; Start 06/10/19 at 14:00 Dextrose (D50w Syringe) 50 ml Q15M PRN IV DECREASED GLUCOSE; Start 06/10/19 at 14:00 Glucagon (Glucagen) 1 mg Q15M PRN IM DECREASED GLUCOSE; Start 06/10/19 at 14:00 Glucose (Glutose) 15 gm Q15M PRN BUCCAL DECREASED GLUCOSE; Start 06/10/19 at 14:00 IV Flush (NS 10 ml) 10 ml [id number] PRN IV Line Patency; Start 06/10/19 at 16:00 Fluvoxamine Maleate (Fluvoxamine Maleate) 25 mg DAILY GTB Last administered on 06/27/19at 09:09; Admin Dose 25 MG; Start 06/11/19 at 09:00 Aspirin (Aspirin) 81 mg DAILY PEG Last administered on 06/27/19 09:09; Admin Dose 81 MG; Start 06/11/19 at 09:00 Heparin Sodium (Porcine) (Heparin (5000 Units/1ml)) 5,000 unit Q8 SC Last administered on 06/14/19at 06:01; Admin Dose 5,000 UNIT; Start 06/11/19 at 14:00; Status Hold Ipratropium [place] (Atrovent 0.02% (Neb)) 0.5 mg Q4H RESP THERAPY PRN HHN SHORTNESS OF BREATH; Start 06/12/19 at 10:00 Levalbuterol (Xopenex Neb) 1.25 mg Q4H RESP THERAPY PRN HHN shortness of breath; Start 06/12/19 at 10:00 Fentanyl 100 ml @ 2.5 mls/hr TITRATE IV Last administered on 06/27/19 11:46; Admin Dose 7.5 MLS/HR; Start 06/12/19 at 10:00 Phenylephrine HCl 80 mg/Dextrose 250 ml @ 18.75 mls/ hr TITRATE IV Last administered on 06/16/19 08:39; Admin Dose 15.1 MLS/HR; Start 06/12/19 at 14:00 Levalbuterol (Xopenex Hfa) 4 puff Q6H RESP THERAPY INH Last administered on 06/27/19 07:43; Admin Dose 4 PUFF; Start 06/12/19 at 20:00 Ipratropium [place] (Atrovent Hfa) 4 puff Q6H RESP THERAPY INH Last administered on 06/27/19 07:43; Admin Dose 4 PUFF; Start 06/12/19 at 20:00 Norepinephrine 32 mg/Dextrose 250 ml @ 0.47 mls/hr TITRATE IV Last administered on 06/18/19 23:09; Admin Dose 0.94 MLS/HR; Start 06/13/19 at 08:00 Docusate Sodium (Colace Liquid Cup) 100 mg BID GTB Last administered on 06/27/19 09:08; Admin Dose 100 MG; Start 06/14/19 at 12:30 Insulin Aspart (Novolog Insulin Pen) NOVOLOG *MILD* ALGORI... Q4 SC Last administered on 06/27/19 13:06; Admin Dose 1 UNIT; Start 06/16/19 at 21:00 Insulin Glargine (Lantus) 15 units DAILY@0800 SC Last administered on 06/27/19 09:14; Admin Dose 15 UNITS; Start 06/18/19 at 08:00 Midazolam HCl 50 ml @ 1 mls/hr TITRATE IV Last administered on 06/18/19 09:43; Admin Dose 2 MLS/HR; Start 06/17/19 at 15:30 Propofol 100 ml @ 1.656 mls/ hr Q12H IV Last administered on 06/27/19 05:50; Admin Dose 8.28 MLS/HR; Start 06/18/19 at 10:00 Lactobacillus Acidophilus/ Rhamnosus (Culturelle) 1 cap TID PO Last administered on 06/27/19 12:58; Admin Dose 1 CAP; Start 06/18/19 at 21:00 Eye Lubricant (Artificial Tears Oph) 2 drop QID BOTH EYES Last administered on 06/27/19 12:57; Admin Dose 2 DROP; Start 06/23/19 at 09:30 Eye Lubricant ([place] Oint) 1 applic Q6 BOTH EYES Last administered on 06/27/19 12:57; Admin Dose 1 APPLIC; Start 06/23/19 at 12:00 Potassium Chloride (Potassium Chloride Pwd/Soln) 20 meq PER PROTOCOL PRN GTB POTASSIUM REPLACEMENT PROTOCOL Last administered on 06/25/19at 09:35; Admin Dose 20 MEQ; Start 06/21/19 at 09:30 Potassium Chloride (Potassium Chloride Pwd/Soln) 30 meq PER PROTOCOL PRN GTB POTASSIUM REPLACEMENT PROTOCOL Last administered on 06/24/19at 16:02; Admin Dose 30 MEQ; Start 06/21/19 at 09:30 Potassium Chloride (Potassium Chloride Pwd/Soln) 40 meq PER PROTOCOL PRN GTB POTASSIUM REPLACEMENT PROTOCOL; Start 06/21/19 at 09:30 Hydrocortisone (Solu-Cortef) 20 mg Q8 IV ; Start 06/27/19 at 14:00 Albumin Human 100 ml @ 100 mls/hr Q8H IV Last administered on 06/27/19at 11:32; Admin Dose 100 MLS/HR; Start 06/27/19 at 11:30; Stop 06/28/19 at 04:29 JACKIE BRUNNER NP Jun 27, 2019 13:25
--- NOTE | 2019-06-27 13:41 | PN ---
Date/Time of Note Date/Time of Note DATE: 06/27/19 TIME: 13:39 Objective Vitals Vital Signs Date Temp Pulse Resp B/P (MAP) Pulse Ox O2 O2 Flow FiO2 Time Delivery Rate 06/27/19 98 26 123/67 91 Mechanical 13:00 (85) Ventilator 06/27/19 70 12:40 06/27/19 98.7 12:00 Intake and Output 06/26/19 06/26/19 06/27/19 1515:00 23:00 07:00 IntakeIntake Total 1040.24 ml 731.96 ml 819.68 ml OutputOutput Total 500 ml 490 ml 410 ml BalanceBalance 540.24 ml 241.96 ml 409.68 ml Results Result Diagram: 06/27/19 0400 06/27/19 0400 Medications Medications Current Medications IV Flush (NS 3 ml) 3 ml PER PROTOCOL IV ; Start 06/10/19 at 12:00 Ondansetron HCl (Zofran Inj) 4 mg Q6H PRN IV NAUSEA/VOMITING; Start 06/10/19 at 12:00 Acetaminophen (Tylenol Tab) 650 mg Q6H PRN PO .PAIN 1-3 OR TEMP Last administered on 06/13/19at 15:52; Admin Dose 650 MG; Start 06/10/19 at 12:00 Acetaminophen/ Hydrocodone Bitart ([place] (5/325)) 1 tab Q6H PRN PO .PAIN 4-6; Start 06/10/19 at 12:00 Morphine Sulfate (morphine) 2 mg Q4H PRN IV .PAIN 7-10 Last administered on 06/15/19at 16:57; Admin Dose 2 MG; Start 06/10/19 at 12:00 Amiodarone HCl (Cordarone) 100 mg DAILY GTB Last administered on 06/27/19at 09:09; Admin Dose 100 MG; Start 06/11/19 at 09:00 Atorvastatin Calcium (Lipitor) 20 mg QHS GTB Last administered on 06/26/19at 21:4 8; Admin Dose 20 MG; Start 06/10/19 at 21:00 Levetiracetam (Keppra Liquid) 500 mg BID GTB Last administered on 06/27/19at 09:09; Admin Dose 500 MG; Start 06/10/19 at 21:00 Olanzapine (Zyprexa) 5 mg DAILY GTB Last administered on 06/27/19 09:08; Admin Dose 5 MG; Start 06/11/19 at 09:00 Polyethylene Glycol (Miralax) 17 gm DAILY GTB Last administered on 06/27/19at 09:08; Admin Dose 17 GM; Start 06/11/19 at 09:00 Miscellaneous Information 1 ea NOTE XX ; Start 06/10/19 at 14:00 Glucose (Glutose) 15 gm Q15M PRN PO DECREASED GLUCOSE; Start 06/10/19 at 14:00 Glucose (Glutose) 22.5 gm Q15M PRN PO DECREASED GLUCOSE; Start 06/10/19 at 14:00 Dextrose (D50w Syringe) 25 ml Q15M PRN IV DECREASED GLUCOSE; Start 06/10/19 at 14:00 Dextrose (D50w Syringe) 50 ml Q15M PRN IV DECREASED GLUCOSE; Start 06/10/19 at 14:00 Glucagon (Glucagen) 1 mg Q15M PRN IM DECREASED GLUCOSE; Start 06/10/19 at 14:00 Glucose (Glutose) 15 gm Q15M PRN BUCCAL DECREASED GLUCOSE; Start 06/10/19 at 14:00 IV Flush (NS 10 ml) 10 ml [id number] PRN IV Line Patency; Start 06/10/19 at 16:00 Fluvoxamine Maleate (Fluvoxamine Maleate) 25 mg DAILY GTB Last administered on 06/27/19at 09:09; Admin Dose 25 MG; Start 06/11/19 at 09:00 Aspirin (Aspirin) 81 mg DAILY PEG Last administered on 06/27/19at 09:09; Admin Dose 81 MG; Start 06/11/19 at 09:00 Heparin Sodium (Porcine) (Heparin (5000 Units/1ml)) 5,000 unit Q8 SC Last administered on 06/14/19at 06:01; Admin Dose 5,000 UNIT; Start 06/11/19 at 14:00; Status Hold Ipratropium [place] (Atrovent 0.02% (Neb)) 0.5 mg Q4H RESP THERAPY PRN HHN SHORTNESS OF BREATH; Start 06/12/19 at 10:00 Levalbuterol (Xopenex Neb) 1.25 mg Q4H RESP THERAPY PRN HHN shortness of breath; Start 06/12/19 at 10:00 Fentanyl 100 ml @ 2.5 mls/hr TITRATE IV Last administered on 06/27/19 11:46; Admin Dose 7.5 MLS/HR; Start 06/12/19 at 10:00 Phenylephrine HCl 80 mg/Dextrose 250 ml @ 18.75 mls/ hr TITRATE IV Last administered on 06/16/19 08:39; Admin Dose 15.1 MLS/HR; Start 06/12/19 at 14:00 Levalbuterol (Xopenex Hfa) 4 puff Q6H RESP THERAPY INH Last administered on 06/27/19 07:43; Admin Dose 4 PUFF; Start 06/12/19 at 20:00 Ipratropium [place] (Atrovent Hfa) 4 puff Q6H RESP THERAPY INH Last admini stered on 06/27/19 07:43; Admin Dose 4 PUFF; Start 06/12/19 at 20:00 Norepinephrine 32 mg/Dextrose 250 ml @ 0.47 mls/hr TITRATE IV Last administered on 06/18/19 23:09; Admin Dose 0.94 MLS/HR; Start 06/13/19 at 08:00 Docusate Sodium (Colace Liquid Cup) 100 mg BID GTB Last administered on 06/27/19 09:08; Admin Dose 100 MG; Start 06/14/19 at 12:30 Insulin Aspart (Novolog Insulin Pen) NOVOLOG *MILD* ALGORI... Q4 SC Last administered on 06/27/19 13:06; Admin Dose 1 UNIT; Start 06/16/19 at 21:00 Insulin Glargine (Lantus) 15 units DAILY@0800 SC Last administered on 06/27/19 09:14; Admin Dose 15 UNITS; Start 06/18/19 at 08:00 Midazolam HCl 50 ml @ 1 mls/hr TITRATE IV Last administered on 06/18/19 09:43; Admin Dose 2 MLS/HR; Start 06/17/19 at 15:30 Propofol 100 ml @ 1.656 mls/ hr Q12H IV Last administered on 06/27/19 05:50; Admin Dose 8.28 MLS/HR; Start 06/18/19 at 10:00 Lactobacillus Acidophilus/ Rhamnosus (Culturelle) 1 cap TID PO Last administered on 06/27/19 12:58; Admin Dose 1 CAP; Start 06/18/19 at 21:00 Eye Lubricant (Artificial Tears Oph) 2 drop QID BOTH EYES Last administered on 06/27/19 12:57; Admin Dose 2 DROP; Start 06/23/19 at 09:30 Eye Lubricant ([place]wa Oint) 1 applic Q6 BOTH EYES Last administered on 06/27/19 12:57; Admin Dose 1 APPLIC; Start 06/23/19 at 12:00 Potassium Chloride (Potassium Chloride Pwd/Soln) 20 meq PER PROTOCOL PRN GTB POTASSIUM REPLACEMENT PROTOCOL Last administered on 06/25/19 09:35; Admin Dose 20 MEQ; Start 06/21/19 at 09:30 Potassium Chloride (Potassium Chloride Pwd/Soln) 30 meq PER PROTOCOL PRN GTB POTASSIUM REPLACEMENT PROTOCOL Last administered on 06/24/19at 16:02; Admin Dose 30 MEQ; Start 06/21/19 at 09:30 Potassium Chloride (Potassium Chloride Pwd/Soln) 40 meq PER PROTOCOL PRN GTB POTASSIUM REPLACEMENT PROTOCOL; Start 06/21/19 at 09:30 Hydrocortisone (Solu-Cortef) 20 mg Q8 IV ; Start 06/27/19 at 14:00 Albumin Human 100 ml @ 100 mls/hr Q8H IV Last administered on 06/27/19at 11:32; Admin Dose 100 MLS/HR; Start 06/27/19 at 11:30; Stop 06/28/19 at 04:29 VTE Prophylaxis Risk score (from Ns)>0 risk: 14 [place] [facility] [place]CD contraindication: other Lines/Catheters IV Catheter Type: Dial in Place: No Assessment/Plan Hospital Course Subjective Patient still intubated, sedated Objective Physical exam General: Patient is intubated, sedated Mentation: Patient is intubated and sedated Head: Normocephalic atraumatic Eyes: EOMI, pupils reactive to light Neck: Supple, nontender, midline Respiratory: Coarse to auscultation bilaterally Cardiovascular: Regular rate, no obvious murmurs Gastrointestinal: non-tender to palpation, bowel sounds heard. Neurological: Moves all extremities spontaneously to noxious stimuli Skin: No new skin lesions, PEG tube site present Assessment/Plan 1. Acute hypoxic respiratory failure, ARDS secondary to sepsis - CXR noted with increased congestion - cont bumex per nephro - Discussed with son done as family needs to decide on trach vs comfort care. Will discuss with siblings - Pulm on board and appreciate recommendations - wean down vent settings as able. Still on high fio2 req - Continue IV antibiotics per ID recommendations. 2. Multifocal pneumonia - Sputum cx noted with MRSA and Bridget - ID on board and appreciate recommendations 3. Hypokalemia - replace 4. Abdominal distension - KUB noted and US with small ascites, same with repeat - most likely secondary to anasarca. -Persistent, CT of the abdomen pelvis was ordered but unable to be completed due to high PEEP on ventilator and transportation issues 5. Atrial fibrillation with RVR- resolved - back in sinus rhythm - Cardiology consultation appreciated 6. Non-ST elevated [place] - Cardiology consultation appreciated and will continue current medications - Very mild elevation - continue aspirin and statin 7. Thrombocytopenia-improving - Very likely due to septic shock - Fibrinogen is elevated, unlikely DIC anemia -likely chronic diease as well as multiple lab draws -replete as needed. 8. Chronic dysphasia - Patient has PEG tube 9. Diabetes mellitus - continue on Lantus and ISS - sugars controlled 10. Chronic encephalopathy - CT of the brain initially showed alarming findings however there appears to be a mixup with patient's name, patient's actual name is Trey Roberts, [id number]. Neurosurgeon was initially consulted for possible brain bleed and other findings however when comparing to the patient's actual chart in 2013, neurosurgeon reviewed the CT and MRI and found a similar findings with no acute emergent change. - Monitor closely, patient appears to be at baseline 11. Dyslipidemia - Continue home meds 12. Mood disorder - Continue home meds 13. Chronic kidney disease - stable - nephrology consultation appreciated 14. Failure to thrive - now DNR per families request 15. Anasarca - cont bumex per nephro recs 16. Disposition - Continue monitoring in ICU while on vent support. family to decide trach vs comfort care. I spoke with 1 of patient's sons, who will reach out to his sibli ngs, appears patient's daughter is back in [place] is not in [place] as was previously thought, when attempting to arrange family meeting over the weekend, patient stated that he will try to arrange a three-way call, he was unable to even give me a direction they are leaning towards regarding tracheostomy versus comfort care. >35 minutes of critical care spent with patient at bedside. MALINI GOMEZ Jun 27, 2019 13:41
[2019-06-27] MEDS: ATORVASTATIN 20 MG TAB GTB SCH (20:54)
[2019-06-27] MEDS: POTASSIUM CHLORIDE 20 MEQ POWDER FOR ORAL SOLN GTB PRN (21:06)
[2019-06-28] VITALS (52 sets, daily range): BP systolic 95–152; BP diastolic 65–90; PULSE 61–113; RESP 18–32
[2019-06-28] MEDS: PROPOFOL 100 ML IV SCH ×4 (00:43→22:20)
[2019-06-28] MEDS: OCULAR LUBRICANT 3.5 GM OPH OINT BOTH EYES SCH ×5 (00:50→23:08)
[2019-06-28] MEDS: INSULIN ASPART [NOVOLOG] 3 ML PEN SC SCH ×6 (01:05→20:29)
[2019-06-28] MEDS: IPRATROPIUM (HFA) 12.9 GM INHALER INH SCH ×4 (01:43→19:42)
[2019-06-28] MEDS: LEVALBUTEROL (HFA) 15 GM INHALER INH SCH ×4 (01:43→19:42)
[2019-06-28] MEDS: ALBUMIN HUMAN 25% 100 ML IV SCH (03:55)
[2019-06-28] MEDS: HYDROCORTISONE 100 MG INJ IV SCH ×3 (05:23→20:05)
[2019-06-28] MEDS ORDERED: SOD CHLORIDE 0.9% 250 ML IV* ONE (07:48)
[2019-06-28] MEDS: FLUVOXAMINE MALEATE 25 MG TABLET GTB SCH (08:40)
[2019-06-28] MEDS: DOCUSATE SODIUM 10 MG/ML (10ML CUP) GTB SCH ×2 (08:40→20:04)
[2019-06-28] MEDS: LEVETIRACETAM (100 MG/ML) 5ML CUP GTB SCH ×2 (08:40→20:04)
[2019-06-28] MEDS: OLANZAPINE 5 MG TAB GTB SCH (08:40)
[2019-06-28] MEDS: ASPIRIN 81 MG TAB PEG SCH (08:40)
[2019-06-28] MEDS: LACTOBACILLUS RHAMNOSUS CAP PO SCH ×3 (08:41→20:04)
[2019-06-28] MEDS: AMIODARONE 200 MG TAB GTB SCH (08:42)
[2019-06-28] MEDS: POLYETHYLENE GLYCOL 17 GM PACKET GTB SCH (08:43)
[2019-06-28] MEDS: ARTIFICIAL TEARS 15 ML OPH BOTH EYES SCH ×4 (08:43→20:06)
[2019-06-28] MEDS: INSULIN GLARGINE [LANTus] (100 UNITS/ML) SYG SC SCH (08:44)
--- NOTE | 2019-06-28 08:47 | CONS ---
Assessment/Plan Assessment/Plan Assessment/Plan (Daily) Ventilator setting; AC of 26, tidal volume 400, PEEP of 10, 80% FiO2. Patient is currently on propofol 35 mics per kilogram per minute. Fentanyl drip as well. Chest x-ray was reviewed from today with again showing ARDS pattern. Assessment recommendations; 1. Patient admitted with severe bilateral pneumonia with ARDS with persistent hypoxemia, refractory to aggressive antimicrobial administration. 2. History of seizure disorder, diabetes. 3. Severe anemia 4. Thrombocytopenia 5. Advanced dementia Continue current supportive care. Obtain ABG. Further recommendations once ABG is performed. Prognosis is very poor. Awaiting family member to arrive from out of state regarding further plan of care. Palliative care is recommended. Consultation Date/Type/Reason Admit Date/Time Jun 10, 2019 at 12:38 Initial Consult Date 06/11/19 Type of Consult Pulmonary/critical care Patient is an 84-year-old [place] lady who was transferred to to the hospital from long term with hypoxemia. Upon evaluation patient is been diagnosed with sepsis due to pneumonia. Patient has advanced dementia and is unable to give any history by herself whatsoever. Patient however is appearing tachypneic. Past medical history; 1. History of chronic atrial fibrillation. 2. Advanced dementia. 3. History of G-tube placement. 4. History of diabetes. 5. History of hypertension. Medications; reviewed. Allergies; none. Social history, family history, occupational history is are not available. Review of systems; unable to be obtained. General exam; elderly woman, on BiPAP. Noncommunicative. Tachypneic. Requesting Provider: MALINI GOMEZ Date/Time of Note DATE: 06/28/19 TIME: 08:45 24 HR Interval Summary Free Text/Dictation Patient's condition is critical. Remains profoundly hypoxemic. General exam; elderly woman, orally intubated, sedated, currently in no distress. Exam/Review of Systems Exam Vitals Vital Signs Date Temp Pulse Resp B/P (MAP) Pulse Ox O2 O2 Flow FiO2 Time Delivery Rate 06/28/19 70 08:00 06/28/19 23 121/73 97 06:30 (89) 06/28/19 Mechanical 06:00 Ventilator 06/28/19 90 05:22 06/28/19 98.1 04:00 Intake and Output 06/27/19 06/27/19 06/28/19 1515:00 23:00 07:00 IntakeIntake Total 1088.663 ml 696.2324 ml 531.144 ml OutputOutput Total 360 ml 615 ml 325 ml BalanceBalance 728.663 ml 81.2324 ml 206.144 ml Exam H ENT exam; supple neck, no JVD. No lymphadenopathy. Midline trachea. No thyromegaly. Orally intubated. Patient does have fair dentition. No neck masses. Pupils are small bilaterally. Chest exam; diminished breath sound bilaterally with bilateral crackles. S1-S2 audible, no murmurs. Regular rhythm. Abdomen exam; soft, no organomegaly. G-tube in place. Bowel sounds are audible. Extremity exam; trace edema. 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 Results Result Diagram: 06/28/19 0630 06/28/19 0430 Results 24hrs Laboratory Tests Test 06/27/19 09:07 06/27/19 12:56 06/27/19 16:47 06/27/19 20:54 Bedside Glucose 173 150 149 188 Test 06/28/19 00:48 06/28/19 04:13 06/28/19 04:30 06/28/19 06:30 Bedside Glucose 198 184 White Blood Count 17.9 H Red Blood Count 2.12 L Hemoglobin 6.5 *L 6.3 *L Hematocrit 20.3 L 20.6 L Mean Corpuscular Volume 95.8 Mean Corpuscular 30.7 Hemoglobin Mean Corpuscular 32.0 Hemoglobin Concent Red Cell Distribution 14.6 H Width Platelet Count 120 #L Mean Platelet Volume 11.2 H Immature Granulocytes % 0.900 H Neutrophils % 93.5 H Lymphocytes % 2.1 L Monocytes % 3.1 Eosinophils % 0.3 Basophils % 0.1 Nucleated Red Blood 0.0 Cells % Immature Granulocytes # 0.160 H Neutrophils # 16.7 H Lymphocytes # 0.4 L Monocytes # 0.6 Eosinophils # 0.1 Basophils # 0.0 Nucleated Red Blood 0.0 Cells # Sodium Level 144 Potassium Level 4.7 Chloride Level 104 Carbon Dioxide Level 34 H Anion Gap 6 Blood Urea Nitrogen 113 H Creatinine 1.14 H Est Glomerular Filtrat Rate mL/min Glucose Level 160 Calcium Level 8.2 L Phosphorus Level 4.8 Magnesium Level 2.6 H Medications Medication Current Medications IV Flush (NS 3 ml) 3 ml PER PROTOCOL IV ; Start 06/10/19 at 12:00 Ondansetron HCl (Zofran Inj) 4 mg Q6H PRN IV NAUSEA/VOMITING; Start 06/10/19 at 12:00 Acetaminophen (Tylenol Tab) 650 mg Q6H PRN PO .PAIN 1-3 OR TEMP Last administered on 06/13/19 15:52; Admin Dose 650 MG; Start 06/10/19 at 12:00 Acetaminophen/ Hydrocodone Bitart ([place] (5/325)) 1 tab Q6H PRN PO .PAIN 4-6; Start 06/10/19 at 12:00 Morphine Sulfate (morphine) 2 mg Q4H PRN IV .PAIN 7-10 Last administered on 06/15/19at 16:57; Admin Dose 2 MG; Start 06/10/19 at 12:00 Amiodarone HCl (Cordarone) 100 mg DAILY GTB Last administered on 06/27/19 09:09; Admin Dose 100 MG; Start 06/11/19 at 09:00 Atorvastatin Calcium (Lipitor) 20 mg QHS GTB Last administered on 06/27/19 20:54; Admin Dose 20 MG; Start 06/10/19 at 21:00 Levetiracetam (Keppra Liquid) 500 mg BID GTB Last administered on 06/27/19 20:54; Admin Dose 500 MG; Start 06/10/19 at 21:00 Olanzapine (Zyprexa) 5 mg DAILY GTB Last administered on 06/27/19 09:08; Admin Dose 5 MG; Start 06/11/19 at 09:00 Polyethylene Glycol (Miralax) 17 gm DAILY GTB Last administered on 06/27/19 09:08; Admin Dose 17 GM; Start 06/11/19 at 09:00 Miscellaneous Information 1 ea NOTE XX ; Start 06/10/19 at 14:00 Glucose (Glutose) 15 gm Q15M PRN PO DECREASED GLUCOSE; Start 06/10/19 at 14:00 Glucose (Glutose) 22.5 gm Q15M PRN PO DECREASED GLUCOSE; Start 06/10/19 at 14:00 Dextrose (D50w Syringe) 25 ml Q15M PRN IV DECREASED GLUCOSE; Start 06/10/19 at 14:00 Dextrose (D50w Syringe) 50 ml Q15M PRN IV DECREASED GLUCOSE; Start 06/10/19 at 14:00 Glucagon (Glucagen) 1 mg Q15M PRN IM DECREASED GLUCOSE; Start 06/10/19 at 14:00 Glucose (Glutose) 15 gm Q15M PRN BUCCAL DECREASED GLUCOSE; Start 06/10/19 at 14:00 IV Flush (NS 10 ml) 10 ml [id number] PRN IV Line Patency; Start 06/10/19 at 16:00 Fluvoxamine Maleate (Fluvoxamine Maleate) 25 mg DAILY GTB Last administered on 06/27/19 09:09; Admin Dose 25 MG; Start 06/11/19 at 09:00 Aspirin (Aspirin) 81 mg DAILY PEG Last administered on 06/27/19 09:09; Admin Dose 81 MG; Start 06/11/19 at 09:00 Heparin Sodium (Porcine) (Heparin (5000 Units/1ml)) 5,000 unit Q8 SC Last administered on 06/14/19 06:01; Admin Dose 5,000 UNIT; Start 06/11/19 at 14:00; Status Hold Ipratropium [place] (Atrovent 0.02% (Neb)) 0.5 mg Q4H RESP THERAPY PRN HHN SHORTNESS OF BREATH; Start 06/12/19 at 10:00 Levalbuterol (Xopenex Neb) 1.25 mg Q4H RESP THERAPY PRN HHN shortness of breath; Start 06/12/19 at 10:00 Fentanyl 100 ml @ 2.5 mls/hr TITRATE IV Last administered on 06/27/19 21:12; Admin Dose 2.5 MLS/HR; Start 06/12/19 at 10:00 Phenylephrine HCl 80 mg/Dextrose 250 ml @ 18.75 mls/ hr TITRATE IV Last administered on 06/16/19 08:39; Admin Dose 15.1 MLS/HR; Start 06/12/19 at 14:00 Levalbuterol (Xopenex Hfa) 4 puff Q6H RESP THERAPY INH Last administered on 06/28/19 07:58; Admin Dose 4 PUFF; Start 06/12/19 at 20:00 Ipratropium [place] (Atrovent Hfa) 4 puff Q6H RESP THERAPY INH Last administered on 06/28/19 07:59; Admin Dose 4 PUFF; Start 06/12/19 at 20:00 Norepinephrine 32 mg/Dextrose 250 ml @ 0.47 mls/hr TITRATE IV Last administered on 06/18/19 23:09; Admin Dose 0.94 MLS/HR; Start 06/13/19 at 08:00 Docusate Sodium (Colace Liquid Cup) 100 mg BID GTB Last administered on 06/27/19 09:08; Admin Dose 100 MG; Start 06/14/19 at 12:30 Insulin Aspart (Novolog Insulin Pen) NOVOLOG *MILD* ALGORI... Q4 SC Last administered on 06/28/19 04:17; Admin Dose 2 UNIT; Start 06/16/19 at 21:00 Insulin Glargine (Lantus) 15 units DAILY@0800 SC Last administered on 06/27/19 09:14; Admin Dose 15 UNITS; Start 06/18/19 at 08:00 Midazolam HCl 50 ml @ 1 mls/hr TITRATE IV Last administered on 06/18/19 09:43; Admin Dose 2 MLS/HR; Start 06/17/19 at 15:30 Propofol 100 ml @ 1.656 mls/ hr Q12H IV Last administered on 06/28/19 08:28; Admin Dose 11.592 MLS/HR; Start 06/18/19 at 10:00 Lactobacillus Acidophilus/ Rhamnosus (Culturelle) 1 cap TID PO Last administered on 06/27/19 20:54; Admin Dose 1 CAP; Start 06/18/19 at 21:00 Eye Lubricant (Artificial Tears Oph) 2 drop QID BOTH EYES Last administered on 06/27/19 20:55; Admin Dose 2 DROP; Start 06/23/19 at 09:30 Eye Lubricant ([place] Oint) 1 applic Q6 BOTH EYES Last administered on 06/28/19 05:23; Admin Dose 1 APPLIC; Start 06/23/19 at 12:00 Potassium Chloride (Potassium Chloride Pwd/Soln) 20 meq PER PROTOCOL PRN GTB POTASSIUM REPLACEMENT PROTOCOL Last administered on 06/25/19 09:35; Admin Dose 20 MEQ; Start 06/21/19 at 09:30 Potassium Chloride (Potassium Chloride Pwd/Soln) 30 meq PER PROTOCOL PRN GTB POTASSIUM REPLACEMENT PROTOCOL Last administered on 06/27/19at 21:06; Admin Dose 30 MEQ; Start 06/21/19 at 09:30 Potassium Chloride (Potassium Chloride Pwd/Soln) 40 meq PER PROTOCOL PRN GTB POTASSIUM REPLACEMENT PROTOCOL; Start 06/21/19 at 09:30 Hydrocortisone (Solu-Cortef) 20 mg Q8 IV Last administered on 06/28/19at 05:23; Admin Dose 20 MG; Start 06/27/19 at 14:00 CHARAN LAUREANO Jun 28, 2019 08:47
[2019-06-28] MEDS: BALSAM PERU/CASTOR OIL 60 GM TUBE TOP SCH (08:50)
[2019-06-28] MEDS: FENTAnyl (DRIP) 1000 mcg/100mL 100 ML IV SCH ×2 (09:31→17:17)
--- NOTE | 2019-06-28 11:44 | CONS ---
Assessment/Plan Assessment/Plan Hospital Course (Demo Recall) ID PROGRESS NOTE CURRENT ABX: DAY # 1 => OFF ABX since 06/27/19 s/p Vanco IV + Merrem s/p zosyn 06/28/19 0630 06/28/19 0430 24H INTERVAL SUMMARY * SIRS w/ low grade temps improved--Leukocytosis persisting -- IV steroids onboard * Orally intubated, noncommunicative, generalized edema noted * s/p Full course ABX for MRSA + HCAP * INDWELLINGS: Endotracheal tube, PEG, Dial, PICC line placed on 06/10/2019. DIAGNOSTIC IMAGING * 06/28/2019 CXR: No significant interval change.. Extensive bilateral lung infiltrates and probable effusions. * 06/14/19 CXR: Increased bilateral interstitial and alveolar infiltrates concerning for edema, multifocal pneumonia, or pneumonitis. Small left pleural effusion increased. MICRO * 06/12/19 RESPIRATORY CULTURE Final Organism 1 MANINDER ALBICANS QUANTITY SCANT GROWTH Organism 2 METHICILLIN RESISTANT S.AUREUS QUANTITY SCANT GROWTH . MULTI DRUG RESISTANT ORGANISM * 06/10/19 BCx (-) * 06/10/19 URINE CULTURE Final Organism 1 K PNEUMO ESBL COLONY COUNT >100,000 CFU/ml . MULTI DRUG RESISTANT ORGANISM KLEB PNEUM KLEB PNEUM M.I.C. RX M.I.C. RX --------- --- --------- --- AMIKACIN 16 S CEFAZOLIN R CEFEPIME R CEFOTAXIME R CIPROFLOXACIN >=4 R GENTAMICIN >=16 R LEVOFLOXACIN >=8 R MEROPENEM 0.38 S NITROFURANTOIN 256 R TOBRAMYCIN >=16 R TRIMETHOPRIM/SULFAMETHOXAZOLE >=320 R PIPERACILLIN/TAZOBACTAM >=128 R PHYSICAL EXAMINATION: GENERAL: VSS, NAD HEENT: AT, NC, orally intubated NECK: Supple, CHEST: Rise symmetrical HEART: Pulse RRR ABDOMEN: Benign EXTREMITIES: Warm, dry SKIN: No rash, no diaphoresis ID ASSESSMENT 84 yo F w/ PMHx of BRAIN MASS admit with: 1. Severe sepsis with shock => RESOLVED, completed ABX course 2. Acute respiratory failure-> RESOLVING ARDS 3. MRSA + ASP HCAP -> completed course of Vanco IV + Merrem 4. Urinary tract infection with culture grew Klebsiella extended-spectrum beta-lactamase. 5. Ueg-RN-ozjjtnjla myocardial infarction. 6. Atrial fibrillation status post rapid ventricular response. 7. Diabetes. 8. Anemia (-)MRSA Nares ABX ALLERGIES: KNDA INVASIVES: ETT, PEG, Dial, PICC line placed on 06/10/2019. CURRENT ABX: DAY # 1 => OFF ABX since 06/27/19 s/p Vanco IV + Merrem s/p zosyn ID RECOMMENDATIONS/PLAN: 1. Has completed > 2 week course ABX for MRSA/HCAP/ARDS * Leukocytosis persisting -- IV steroids onboard * MONITOR OFF ABX for recurrent sepsis 2. For TEMP > 101.0-- > Repeat Blood, Urine, Sputum Cx . Consultation Date/Type/Reason Admit Date/Time Jun 10, 2019 at 12:38 Initial Consult Date 06/11/19 Requesting Provider: MALINI GOMEZ Date/Time of Note DATE: 06/28/19 TIME: 11:34 Exam/Review of Systems Exam Vitals Vital Signs Date Temp Pulse Resp B/P (MAP) Pulse Ox O2 O2 Flow FiO2 Time Delivery Rate 06/28/19 71 21 111/68 100 10:30 (82) 06/28/19 Mechanical 10:00 Ventilator 06/28/19 98.2 08:00 06/28/19 100 08:00 Intake and Output 06/27/19 06/27/19 06/28/19 1515:00 23:00 07:00 IntakeIntake Total 1088.663 ml 696.2324 ml 531.144 ml OutputOutput Total 360 ml 615 ml 325 ml BalanceBalance 728.663 ml 81.2324 ml 206.144 ml Results Result Diagram: 06/28/19 0630 06/28/19 0430 Results 24hrs Laboratory Tests Test 06/27/19 12:56 06/27/19 16:47 06/27/19 20:54 06/28/19 00:48 Bedside Glucose 150 149 188 198 Test 06/28/19 04:13 06/28/19 04:30 06/28/19 06:30 06/28/19 08:39 Bedside Glucose 184 177 White Blood Count 17.9 H Red Blood Count 2.12 L Hemoglobin 6.5 *L 6.3 *L Hematocrit 20.3 L 20.6 L Mean Corpuscular Volume 95.8 Mean Corpuscular 30.7 Hemoglobin Mean Corpuscular 32.0 Hemoglobin Concent Red Cell Distribution 14.6 H Width Platelet Count 120 #L Mean Platelet Volume 11.2 H Immature Granulocytes % 0.900 H Neutrophils % 93.5 H Lymphocytes % 2.1 L Monocytes % 3.1 Eosinophils % 0.3 Basophils % 0.1 Nucleated Red Blood 0.0 Cells % Immature Granulocytes # 0.160 H Neutrophils # 16.7 H Lymphocytes # 0.4 L Monocytes # 0.6 Eosinophils # 0.1 Basophils # 0.0 Nucleated Red Blood 0.0 Cells # Sodium Level 144 Potassium Level 4.7 Chloride Level 104 Carbon Dioxide Level 34 H Anion Gap 6 Blood Urea Nitrogen 113 H Creatinine 1.14 H Est Glomerular Filtrat Rate mL/min Glucose Level 160 Calcium Level 8.2 L Phosphorus Level 4.8 Magnesium Level 2.6 H Medications Medication Current Medications IV Flush (NS 3 ml) 3 ml PER PROTOCOL IV ; Start 06/10/19 at 12:00 Ondansetron HCl (Zofran Inj) 4 mg Q6H PRN IV NAUSEA/VOMITING; Start 06/10/19 at 12:00 Acetaminophen (Tylenol Tab) 650 mg Q6H PRN PO .PAIN 1-3 OR TEMP Last administered on 06/13/19 15:52; Admin Dose 650 MG; Start 06/10/19 at 12:00 Acetaminophen/ Hydrocodone Bitart ([place] (5/325)) 1 tab Q6H PRN PO .PAIN 4-6; Start 06/10/19 at 12:00 Morphine Sulfate (morphine) 2 mg Q4H PRN IV .PAIN 7-10 Last administered on 06/15/19 16:57; Admin Dose 2 MG; Start 06/10/19 at 12:00 Amiodarone HCl (Cordarone) 100 mg DAILY GTB Last administered on 06/28/19 08:42; Admin Dose 100 MG; Start 06/11/19 at 09:00 Atorvastatin Calcium (Lipitor) 20 mg QHS GTB Last administered on 06/27/19 20:54; Admin Dose 20 MG; Start 06/10/19 at 21:00 Levetiracetam (Keppra Liquid) 500 mg BID GTB Last administered on 06/28/19 08:40; Admin Dose 500 MG; Start 06/10/19 at 21:00 Olanzapine (Zyprexa) 5 mg DAILY GTB Last administered on 06/28/19at 08:40; Admin Dose 5 MG; Start 06/11/19 at 09:00 Polyethylene Glycol (Miralax) 17 gm DAILY GTB Last administered on 06/28/19at 08:43; Admin Dose 17 GM; Start 06/11/19 at 09:00 Miscellaneous Information 1 ea NOTE XX ; Start 06/10/19 at 14:00 Glucose (Glutose) 15 gm Q15M PRN PO DECREASED GLUCOSE; Start 06/10/19 at 14:00 Glucose (Glutose) 22.5 gm Q15M PRN PO DECREASED GLUCOSE; Start 06/10/19 at 14:00 Dextrose (D50w Syringe) 25 ml Q15M PRN IV DECREASED GLUCOSE; Start 06/10/19 at 14:00 Dextrose (D50w Syringe) 50 ml Q15M PRN IV DECREASED GLUCOSE; Start 06/10/19 at 14:00 Glucagon (Glucagen) 1 mg Q15M PRN IM DECREASED GLUCOSE; Start 06/10/19 at 14:00 Glucose (Glutose) 15 gm Q15M PRN BUCCAL DECREASED GLUCOSE; Start 06/10/19 at 14:00 IV Flush (NS 10 ml) 10 ml [id number] PRN IV Line Patency; Start 06/10/19 at 16:00 Fluvoxamine Maleate (Fluvoxamine Maleate) 25 mg DAILY GTB Last administered on 06/28/19at 08:40; Admin Dose 25 MG; Start 06/11/19 at 09:00 Aspirin (Aspirin) 81 mg DAILY PEG Last administered on 06/28/19at 08:40; Admin Dose 81 MG; Start 06/11/19 at 09:00 Heparin Sodium (Porcine) (Heparin (5000 Units/1ml)) 5,000 unit Q8 SC Last administered on 06/14/19at 06:01; Admin Dose 5,000 UNIT; Start 06/11/19 at 14:00; Status Hold Ipratropium [place] (Atrovent 0.02% (Neb)) 0.5 mg Q4H RESP THERAPY PRN HHN SHORTNESS OF BREATH; Start 06/12/19 at 10:00 Levalbuterol (Xopenex Neb) 1.25 mg Q4H RESP THERAPY PRN HHN shortness of breath; Start 06/12/19 at 10:00 Fentanyl 100 ml @ 2.5 mls/hr TITRATE IV Last administered on 06/28/19 09:31; Admin Dose 10 MLS/HR; Start 06/12/19 at 10:00 Phenylephrine HCl 80 mg/Dextrose 250 ml @ 18.75 mls/ hr TITRATE IV Last admi nistered on 06/16/19 08:39; Admin Dose 15.1 MLS/HR; Start 06/12/19 at 14:00 Levalbuterol (Xopenex Hfa) 4 puff Q6H RESP THERAPY INH Last administered on 06/28/19 07:58; Admin Dose 4 PUFF; Start 06/12/19 at 20:00 Ipratropium [place] (Atrovent Hfa) 4 puff Q6H RESP THERAPY INH Last administered on 06/28/19 07:59; Admin Dose 4 PUFF; Start 06/12/19 at 20:00 Norepinephrine 32 mg/Dextrose 250 ml @ 0.47 mls/hr TITRATE IV Last administered on 06/18/19 23:09; Admin Dose 0.94 MLS/HR; Start 06/13/19 at 08:00 Docusate Sodium (Colace Liquid Cup) 100 mg BID GTB Last administered on 06/28/19 08:40; Admin Dose 100 MG; Start 06/14/19 at 12:30 Insulin Aspart (Novolog Insulin Pen) NOVOLOG *MILD* ALGORI... Q4 SC Last administered on 06/28/19 08:45; Admin Dose 1 UNIT; Start 06/16/19 at 21:00 Insulin Glargine (Lantus) 15 units DAILY@0800 SC Last administered on 06/28/19 08:44; Admin Dose 15 UNITS; Start 06/18/19 at 08:00 Midazolam HCl 50 ml @ 1 mls/hr TITRATE IV Last administered on 06/18/19 09:43; Admin Dose 2 MLS/HR; Start 06/17/19 at 15:30 Propofol 100 ml @ 1.656 mls/ hr Q12H IV Last administered on 06/28/19 08:28; Admin Dose 11.592 MLS/HR; Start 06/18/19 at 10:00 Lactobacillus Acidophilus/ Rhamnosus (Culturelle) 1 cap TID PO Last administered on 06/28/19 08:41; Admin Dose 1 CAP; Start 06/18/19 at 21:00 Eye Lubricant (Artificial Tears Oph) 2 drop QID BOTH EYES Last administered on 06/28/19 08:43; Admin Dose 2 DROP; Start 06/23/19 at 09:30 Eye Lubricant ([place]wa Oint) 1 applic Q6 BOTH EYES Last administered on 06/28/19 05:23; Admin Dose 1 APPLIC; Start 06/23/19 at 12:00 Potassium Chloride (Potassium Chloride Pwd/Soln) 20 meq PER PROTOCOL PRN GTB POTASSIUM REPLACEMENT PROTOCOL Last administered on 06/25/19at 09:35; Admin Dose 20 MEQ; Start 06/21/19 at 09:30 Potassium Chloride (Potassium Chloride Pwd/Soln) 30 meq PER PROTOCOL PRN GTB POTASSIUM REPLACEMENT PROTOCOL Last administered on 06/27/19at 21:06; Admin Dose 30 MEQ; Start 06/21/19 at 09:30 Potassium Chloride (Potassium Chloride Pwd/Soln) 40 meq PER PROTOCOL PRN GTB POTASSIUM REPLACEMENT PROTOCOL; Start 06/21/19 at 09:30 Hydrocortisone (Solu-Cortef) 20 mg Q8 IV Last administered on 06/28/19 05:23; Admin Dose 20 MG; Start 06/27/19 at 14:00 ELIAS BRINK NP Jun 28, 2019 11:44
--- NOTE | 2019-06-28 12:14 | PN ---
Date/Time of Note Date/Time of Note DATE: 06/28/19 TIME: 12:12 Objective Vitals Vital Signs Date Temp Pulse Resp B/P (MAP) Pulse Ox O2 O2 Flow FiO2 Time Delivery Rate 06/28/19 71 21 111/68 100 10:30 (82) 06/28/19 Mechanical 10:00 Ventilator 06/28/19 100 09:00 06/28/19 98.2 08:00 Intake and Output 06/27/19 06/27/19 06/28/19 1515:00 23:00 07:00 IntakeIntake Total 1088.663 ml 696.2324 ml 531.144 ml OutputOutput Total 360 ml 615 ml 325 ml BalanceBalance 728.663 ml 81.2324 ml 206.144 ml Results Result Diagram: 06/28/19 0630 06/28/19 0430 Medications Medications Current Medications IV Flush (NS 3 ml) 3 ml PER PROTOCOL IV ; Start 06/10/19 at 12:00 Ondansetron HCl (Zofran Inj) 4 mg Q6H PRN IV NAUSEA/VOMITING; Start 06/10/19 at 12:00 Acetaminophen (Tylenol Tab) 650 mg Q6H PRN PO .PAIN 1-3 OR TEMP Last administered on 06/13/19at 15:52; Admin Dose 650 MG; Start 06/10/19 at 12:00 Acetaminophen/ Hydrocodone Bitart ([place] (5/325)) 1 tab Q6H PRN PO .PAIN 4-6; Start 06/10/19 at 12:00 Morphine Sulfate (morphine) 2 mg Q4H PRN IV .PAIN 7-10 Last administered on 06/15/19at 16:57; Admin Dose 2 MG; Start 06/10/19 at 12:00 Amiodarone HCl (Cordarone) 100 mg DAILY GTB Last administered on 06/28/19 08:42; Admin Dose 100 MG; Start 06/11/19 at 09:00 Atorvastatin Calcium (Lipitor) 20 mg QHS GTB Last administered on 06/27/19 20:54; Admin Dose 20 MG; Start 06/10/19 at 21:00 Levetiracetam (Keppra Liquid) 500 mg BID GTB Last administered on 06/28/19 08:40; Admin Dose 500 MG; Start 06/10/19 at 21:00 Olanzapine (Zyprexa) 5 mg DAILY GTB Last administered on 06/28/19at 08:40; Admin Dose 5 MG; Start 06/11/19 at 09:00 Polyethylene Glycol (Miralax) 17 gm DAILY GTB Last administered on 06/28/19at 08:43; Admin Dose 17 GM; Start 06/11/19 at 09:00 Miscellaneous Information 1 ea NOTE XX ; Start 06/10/19 at 14:00 Glucose (Glutose) 15 gm Q15M PRN PO DECREASED GLUCOSE; Start 06/10/19 at 14:00 Glucose (Glutose) 22.5 gm Q15M PRN PO DECREASED GLUCOSE; Start 06/10/19 at 14:00 Dextrose (D50w Syringe) 25 ml Q15M PRN IV DECREASED GLUCOSE; Start 06/10/19 at 14:00 Dextrose (D50w Syringe) 50 ml Q15M PRN IV DECREASED GLUCOSE; Start 06/10/19 at 14:00 Glucagon (Glucagen) 1 mg Q15M PRN IM DECREASED GLUCOSE; Start 06/10/19 at 14:00 Glucose (Glutose) 15 gm Q15M PRN BUCCAL DECREASED GLUCOSE; Start 06/10/19 at 14:00 IV Flush (NS 10 ml) 10 ml [id number] PRN IV Line Patency; Start 06/10/19 at 16:00 Fluvoxamine Maleate (Fluvoxamine Maleate) 25 mg DAILY GTB Last administered on 06/28/19at 08:40; Admin Dose 25 MG; Start 06/11/19 at 09:00 Aspirin (Aspirin) 81 mg DAILY PEG Last administered on 06/28/19at 08:40; Admin Dose 81 MG; Start 06/11/19 at 09:00 Heparin Sodium (Porcine) (Heparin (5000 Units/1ml)) 5,000 unit Q8 SC Last administered on 06/14/19at 06:01; Admin Dose 5,000 UNIT; Start 06/11/19 at 14:00; Status Hold Ipratropium [place] (Atrovent 0.02% (Neb)) 0.5 mg Q4H RESP THERAPY PRN HHN SHORTNESS OF BREATH; Start 06/12/19 at 10:00 Levalbuterol (Xopenex Neb) 1.25 mg Q4H RESP THERAPY PRN HHN shortness of breath; Start 06/12/19 at 10:00 Fentanyl 100 ml @ 2.5 mls/hr TITRATE IV Last administered on 06/28/19 09:31; Admin Dose 10 MLS/HR; Start 06/12/19 at 10:00 Phenylephrine HCl 80 mg/Dextrose 250 ml @ 18.75 mls/ hr TITRATE IV Last administered on 06/16/19 08:39; Admin Dose 15.1 MLS/HR; Start 06/12/19 at 14:00 Levalbuterol (Xopenex Hfa) 4 puff Q6H RESP THERAPY INH Last administered on 06/28/19 07:58; Admin Dose 4 PUFF; Start 06/12/19 at 20:00 Ipratropium [place] (Atrovent Hfa) 4 puff Q6H RESP THERAPY INH Last administered on 06/28/19 07:59; Admin Dose 4 PUFF; Start 06/12/19 at 20:00 Norepinephrine 32 mg/Dextrose 250 ml @ 0.47 mls/hr TITRATE IV Last administered on 06/18/19 23:09; Admin Dose 0.94 MLS/HR; Start 06/13/19 at 08:00 Docusate Sodium (Colace Liquid Cup) 100 mg BID GTB Last administered on 06/28/19 08:40; Admin Dose 100 MG; Start 06/14/19 at 12:30 Insulin Aspart (Novolog Insulin Pen) NOVOLOG *MILD* ALGORI... Q4 SC Last administered on 06/28/19 08:45; Admin Dose 1 UNIT; Start 06/16/19 at 21:00 Insulin Glargine (Lantus) 15 units DAILY@0800 SC Last administered on 06/28/19 08:44; Admin Dose 15 UNITS; Start 06/18/19 at 08:00 Midazolam HCl 50 ml @ 1 mls/hr TITRATE IV Last administered on 06/18/19 09:43; Admin Dose 2 MLS/HR; Start 06/17/19 at 15:30 Propofol 100 ml @ 1.656 mls/ hr Q12H IV Last administered on 06/28/19 08:28; Admin Dose 11.592 MLS/HR; Start 06/18/19 at 10:00 Lactobacillus Acidophilus/ Rhamnosus (Culturelle) 1 cap TID PO Last administered on 06/28/19 08:41; Admin Dose 1 CAP; Start 06/18/19 at 21:00 Eye Lubricant (Artificial Tears Oph) 2 drop QID BOTH EYES Last administered on 06/28/19 08:43; Admin Dose 2 DROP; Start 06/23/19 at 09:30 Eye Lubricant (Akwa Oint) 1 applic Q6 BOTH EYES Last administered on 06/28/19 05:23; Admin Dose 1 APPLIC; Start 06/23/19 at 12:00 Potassium Chloride (Potassium Chloride Pwd/Soln) 20 meq PER PROTOCOL PRN GTB POTASSIUM REPLACEMENT PROTOCOL Last administered on 06/25/19at 09:35; Admin Dose 20 MEQ; Start 06/21/19 at 09:30 Potassium Chloride (Potassium Chloride Pwd/Soln) 30 meq PER PROTOCOL PRN GTB POT ASSIUM REPLACEMENT PROTOCOL Last administered on 06/27/19at 21:06; Admin Dose 30 MEQ; Start 06/21/19 at 09:30 Potassium Chloride (Potassium Chloride Pwd/Soln) 40 meq PER PROTOCOL PRN GTB POTASSIUM REPLACEMENT PROTOCOL; Start 06/21/19 at 09:30 Hydrocortisone (Solu-Cortef) 20 mg Q8 IV Last administered on 06/28/19 05:23; Admin Dose 20 MG; Start 06/27/19 at 14:00 VTE Prophylaxis Risk score (from Nsg)>0 risk: 11 SCD applied (from [facility] [place]): Yes Lines/Catheters IV Catheter Type: Dial in Place: No Assessment/Plan Hospital Course Subjective Patient still intubated, sedated, had some bleeding in the mouth overnight that has subsided. Objective Physical exam General: Patient is intubated, sedated Mentation: Patient is intubated and sedated Head: Normocephalic atraumatic Eyes: EOMI, pupils reactive to light Neck: Supple, nontender, midline Respiratory: Coarse to auscultation bilaterally Cardiovascular: Regular rate, no obvious murmurs Gastrointestinal: non-tender to palpation, bowel sounds heard. Neurological: Moves all extremities spontaneously to noxious stimuli Skin: No new skin lesions, PEG tube site present Assessment/Plan 1. Acute hypoxic respiratory failure, ARDS secondary to sepsis - CXR noted with increased congestion - cont bumex per nephro - Discussed with son done as family needs to decide on trach vs comfort care. Will discuss with siblings - Pulm on board and appreciate recommendations - wean down vent settings as able. Still on high fio2 req - Continue IV antibiotics per ID recommendations. 2. Multifocal pneumonia - Sputum cx noted with MRSA and Bridget - ID on board and appreciate recommendations 3. Hypokalemia - replace 4. Abdominal distension - KUB noted and US with small ascites, same with repeat - most likely secondary to anasarca. -Persistent, CT of the abdomen pelvis was ordered but unable to be completed due to high PEEP on ventilator and transportation issues 5. Atrial fibrillation with RVR- resolved - back in sinus rhythm - Cardiology consultation appreciated 6. Non-ST elevated [place] - Cardiology consultation appreciated and will continue current medications - Very mild elevation - continue aspirin and statin 7. Thrombocytopenia-improving - Very likely due to septic shock - Fibrinogen is elevated, unlikely DIC anemia -likely chronic diease as well as multiple lab draws, had some incidental bleeding in the oral cavity that has not subsided overnight, transfuse as needed -replete as needed. 8. Chronic dysphasia - Patient has PEG tube 9. Diabetes mellitus - continue on Lantus and ISS - sugars controlled 10. Chronic encephalopathy - CT of the brain initially showed alarming findings however there appears to be a mixup with patient's name, patient's actual name is Trey Roberts, [id number]. Neurosurgeon was initially consulted for possible brain bleed and other findings however when comparing to the patient's actual chart in 2013, neurosurgeon reviewed the CT and MRI and found a similar findings with no acute emergent change. - Monitor closely, patient appears to be at baseline 11. Dyslipidemia - Continue home meds 12. Mood disorder - Continue home meds 13. Chronic kidney disease - stable - nephrology consultation appreciated 14. Failure to thrive - now DNR per families request 15. Anasarca - cont bumex per nephro recs 16. Disposition - Continue monitoring in ICU while on vent support. family to decide trach vs comfort care. I spoke with 1 of patient's sons, who will reach out to his siblings, appears patient's daughter is back in [place] is not in [place] as was previously thought, when attempting to arrange family meeting over the weekend, patient stated that he will try to arrange a three-way call, he was unable to even give me a direction they are leaning towards regarding tracheostomy versus comfort care. Very poor prognosis, patient continues to deteriorate despite all efforts. >35 minutes of critical care spent with patient at bedside. MALINI GOMEZ Jun 28, 2019 12:14
[2019-06-28] MEDS ORDERED: BUMETANIDE 12 MG in DEXTROSE 5% 72 ML IV ONE (16:00)
--- NOTE | 2019-06-28 17:21 | CONS ---
Assessment/Plan Assessment/Plan Assessment/Plan (Daily) 1. acute Hypernatremia due to severe dehydration -resolved 2. acute Hyperkalemia due to FLOYD - Resolved 3. acute kidney injury on CKD III due to ATN from sepsis and Prerenal azotemia 4 . Septic shock due to multifocal PNA and UTI 5. Acute hypoxic respiratory failure due to PNA and Septic shock - Failed BIPAP- Intubated on 06/12/19 , 6. H/O severe dementia 7. H/O HTN 8. H/O HL 9. SNF resident 10. acute on chronic encephalopathy 11 h/o Dysphagia S/p G tube placement 12. Hypocalcemia with Ca 6.7 13. UTI with Urine cx growing ESBL Klebsiella Plan: BUN has been rising to 113, Cr normal, K normal,stop IV bumex due to uremia and decrease solu-medrol 20 mg Q 8 hr- DNR code status - Poor candidate for dialysis due to age, comorbidiites, consider palliative care follow up and comfort care - I will happy to give my input to family currenlty on IV abx meropenem for ESBL Klebsiella UTI, Sputum Cx grew Bridget Albicans and MRSA- pt is on IV cancidas, and IV vancomycin- Renally dose all abx and monitor electrolytes Ventilator Management as per pulmonary -- not doing well, still requiring high PEEP will follow up Consultation Date/Type/Reason Admit Date/Time Jun 10, 2019 at 12:38 Initial Consult Date 06/11/19 Type of Consult NEPHROLOGY Requesting Provider: MALINI GOMEZ Date/Time of Note DATE: 06/28/19 TIME: 17:21 Exam/Review of Systems Exam Vitals Vital Signs Date Temp Pulse Resp B/P (MAP) Pulse Ox O2 O2 Flow FiO2 Time Delivery Rate 06/28/19 63 26 138/80 100 Mechanical 17:00 (99) Ventilator 06/28/19 98.2 16:00 06/28/19 100 15:20 Intake and Output 06/27/19 06/27/19 06/28/19 1515:00 23:00 07:00 IntakeIntake Total 1088.663 ml 696.2324 ml 531.144 ml OutputOutput Total 360 ml 615 ml 325 ml BalanceBalance 728.663 ml 81.2324 ml 206.144 ml Results Result Diagram: 06/28/19 0630 06/28/19 0430 Results 24hrs Laboratory Tests Test 06/27/19 20:54 06/28/19 00:48 06/28/19 04:13 06/28/19 04:30 Bedside Glucose 188 198 184 White Blood Count 17.9 H Red Blood Count 2.12 L Hemoglobin 6.5 *L Hematocrit 20.3 L Mean Corpuscular 95.8 Volume Mean Corpuscular 30.7 Hemoglobin Mean Corpuscular 32.0 Hemoglobin Concent Red Cell 14.6 H Distribution Width Platelet Count 120 #L Mean Platelet 11.2 H Volume Immature 0.900 H Granulocytes % Neutrophils % 93.5 H Lymphocytes % 2.1 L Monocytes % 3.1 Eosinophils % 0.3 Basophils % 0.1 Nucleated Red 0.0 Blood Cells % Immature 0.160 H Granulocytes # Neutrophils # 16.7 H Lymphocytes # 0.4 L Monocytes # 0.6 Eosinophils # 0.1 Basophils # 0.0 Nucleated Red 0.0 Blood Cells # Sodium Level 144 Potassium Level 4.7 Chloride Level 104 Carbon Dioxide 34 H Level Anion Gap 6 Blood Urea 113 H Nitrogen Creatinine 1.14 H Est Glomerular Filtrat Rate mL/min Glucose Level 160 Calcium Level 8.2 L Phosphorus Level 4.8 Magnesium Level 2.6 H Test 06/28/19 06:30 06/28/19 08:39 06/28/19 08:44 06/28/19 12:54 Hemoglobin 6.3 *L Hematocrit 20.6 L Bedside Glucose 177 180 Blood Gas Specimen Blood arterial Source Arterial Blood 06/28/2019 11:45:30 Date Drawn AM Arterial Blood pH 7.430 (Temp corrected) Arterial Blood 49.3 H pCO2 (Temp correct) Arterial Blood pO2 85.9 (Temp corrected) Arterial Blood 32.0 H HCO3 Arterial Blood 6.9 H Base Excess Arterial Blood 96.1 Oxygen Saturation James Test ACCEPTAB Arterial Blood Gas Right Radial Puncture Site Arterial 0.5 Blood Carboxyhemog lobin Arterial Blood 0.5 Methemoglobin Blood Gas A-a O2 577.8 H Differential Oxyhemoglobin 95.1 Percent Blood Gas 37.0 Temperature Blood Gas 26.0 Respiration Rate Blood Gas Actual 26 Respiration Rate Blood Gas Modality VENT - PC FiO2 100.0 Blood Gas 1.0 Inspiratory Time Blood Gas Low PEEP 10.0 Setting Blood Gas 35.0 Inspiratory Pressure Blood Gas Notified JENNIE KOHLI Whom Blood Gas Notified 06/28/2019 11:58:36 Time AM Test 06/28/19 16:51 Bedside Glucose 191 Medications Medication Current Medications IV Flush (NS 3 ml) 3 ml PER PROTOCOL IV ; Start 06/10/19 at 12:00 Ondansetron HCl (Zofran Inj) 4 mg Q6H PRN IV NAUSEA/VOMITING; Start 06/10/19 at 12:00 Acetaminophen (Tylenol Tab) 650 mg Q6H PRN PO .PAIN 1-3 OR TEMP Last administered on 06/13/19 15:52; Admin Dose 650 MG; Start 06/10/19 at 12:00 Acetaminophen/ Hydrocodone Bitart ([place] (5/325)) 1 tab Q6H PRN PO .PAIN 4-6; Start 06/10/19 at 12:00 Morphine Sulfate (morphine) 2 mg Q4H PRN IV .PAIN 7-10 Last administered on 06/15/19at 16:57; Admin Dose 2 MG; Start 06/10/19 at 12:00 Amiodarone HCl (Cordarone) 100 mg DAILY GTB Last administered on 06/28/19 08:42; Admin Dose 100 MG; Start 06/11/19 at 09:00 Atorvastatin Calcium (Lipitor) 20 mg QHS GTB Last administered on 06/27/19 20:54; Admin Dose 20 MG; Start 06/10/19 at 21:00 Levetiracetam (Keppra Liquid) 500 mg BID GTB Last administered on 06/28/19 08:40; Admin Dose 500 MG; Start 06/10/19 at 21:00 Olanzapine (Zyprexa) 5 mg DAILY GTB Last administered on 06/28/19 08:40; Admin Dose 5 MG; Start 06/11/19 at 09:00 Polyethylene Glycol (Miralax) 17 gm DAILY GTB Last administered on 06/28/19 08:43; Admin Dose 17 GM; Start 06/11/19 at 09:00 Miscellaneous Information 1 ea NOTE XX ; Start 06/10/19 at 14:00 Glucose (Glutose) 15 gm Q15M PRN PO DECREASED GLUCOSE; Start 06/10/19 at 14:00 Glucose (Glutose) 22.5 gm Q15M PRN PO DECREASED GLUCOSE; Start 06/10/19 at 14:00 Dextrose (D50w Syringe) 25 ml Q15M PRN IV DECREASED GLUCOSE; Start 06/10/19 at 14:00 Dextrose (D50w Syringe) 50 ml Q15M PRN IV DECREASED GLUCOSE; Start 06/10/19 at 14:00 Glucagon (Glucagen) 1 mg Q15M PRN IM DECREASED GLUCOSE; Start 06/10/19 at 14:00 Glucose (Glutose) 15 gm Q15M PRN BUCCAL DECREASED GLUCOSE; Start 06/10/19 at 14:00 IV Flush (NS 10 ml) 10 ml [id number] PRN IV Line Patency; Start 06/10/19 at 16:00 Fluvoxamine Maleate (Fluvoxamine Maleate) 25 mg DAILY GTB Last administered on 06/28/19 08:40; Admin Dose 25 MG; Start 06/11/19 at 09:00 Aspirin (Aspirin) 81 mg DAILY PEG Last administered on 06/28/19 08:40; Admin Dose 81 MG; Start 06/11/19 at 09:00 Heparin Sodium (Porcine) (Heparin (5000 Units/1ml)) 5,000 unit Q8 SC Last administered on 06/14/19 06:01; Admin Dose 5,000 UNIT; Start 06/11/19 at 14:00; Status Hold Ipratropium [place] (Atrovent 0.02% (Neb)) 0.5 mg Q4H RESP THERAPY PRN HHN SHORTNESS OF BREATH; Start 06/12/19 at 10:00 Levalbuterol (Xopenex Neb) 1.25 mg Q4H RESP THERAPY PRN HHN shortness of breath; Start 06/12/19 at 10:00 Fentanyl 100 ml @ 2.5 mls/hr TITRATE IV Last administered on 06/28/19 17:17; Admin Dose 10 MLS/HR; Start 06/12/19 at 10:00 Phenylephrine HCl 80 mg/Dextrose 250 ml @ 18.75 mls/ hr TITRATE IV Last administered on 06/16/19at 08:39; Admin Dose 15.1 MLS/HR; Start 06/12/19 at 14:00 Levalbuterol (Xopenex Hfa) 4 puff Q6H RESP THERAPY INH Last administered on 06/28/19 14:07; Admin Dose 4 PUFF; Start 06/12/19 at 20:00 Ipratropium [place] (Atrovent Hfa) 4 puff Q6H RESP THERAPY INH Last administered on 06/28/19 14:07; Admin Dose 4 PUFF; Start 06/12/19 at 20:00 Norepinephrine 32 mg/Dextrose 250 ml @ 0.47 mls/hr TITRATE IV Last administered on 06/18/19 23:09; Admin Dose 0.94 MLS/HR; Start 06/13/19 at 08:00 Docusate Sodium (Colace Liquid Cup) 100 mg BID GTB Last administered on 06/28/19 08:40; Admin Dose 100 MG; Start 06/14/19 at 12:30 Insulin Aspart (Novolog Insulin Pen) NOVOLOG *MILD* ALGORI... Q4 SC Last administered on 06/28/19 16:53; Admin Dose 2 UNIT; Start 06/16/19 at 21:00 Insulin Glargine (Lantus) 15 units DAILY@0800 SC Last administered on 06/28/19 08:44; Admin Dose 15 UNITS; Start 06/18/19 at 08:00 Midazolam HCl 50 ml @ 1 mls/hr TITRATE IV Last administered on 06/18/19 09:43; Admin Dose 2 MLS/HR; Start 06/17/19 at 15:30 Propofol 100 ml @ 1.656 mls/ hr Q12H IV Last administered on 06/28/19 15:28; Admin Dose 13.248 MLS/HR; Start 06/18/19 at 10:00 Lactobacillus Acidophilus/ Rhamnosus (Culturelle) 1 cap TID PO Last administered on 06/28/19 12:52; Admin Dose 1 CAP; Start 06/18/19 at 21:00 Eye Lubricant (Artificial Tears Oph) 2 drop QID BOTH EYES Last administered on 06/28/19 16:54; Admin Dose 2 DROP; Start 06/23/19 at 09:30 Eye Lubricant (Akwa Oint) 1 applic Q6 BOTH EYES Last administered on 06/28/19 16:54; Admin Dose 1 APPLIC; Start 06/23/19 at 12:00 Potassium Chloride (Potassium Chloride Pwd/Soln) 20 meq PER PROTOCOL PRN GTB POTASSIUM REPLACEMENT PROTOCOL Last administered on 06/25/19 09:35; Admin Dose 20 MEQ; Start 06/21/19 at 09:30 Potassium Chloride (Potassium Chloride Pwd/Soln) 30 meq PER PROTOCOL PRN GTB POTASSIUM REPLACEMENT PROTOCOL Last administered on 06/27/19at 21:06; Admin Dose 30 MEQ; Start 06/21/19 at 09:30 Potassium Chloride (Potassium Chloride Pwd/Soln) 40 meq PER PROTOCOL PRN GTB POTASSIUM REPLACEMENT PROTOCOL; Start 06/21/19 at 09:30 Hydrocortisone (Solu-Cortef) 20 mg Q8 IV Last administered on 06/28/19at 13:00; Admin Dose 20 MG; Start 06/27/19 at 14:00 Bumetanide 12 mg/ Dextrose/Water 120 ml @ 10 mls/hr Q12H ONCE IV Last administered on 06/28/19at 15:57; Admin Dose 10 MLS/HR; Start 06/28/19 at 16:00; Stop 06/29/19 at 03:59 GERMAN FELIX MD Jun 28, 2019 17:21
[2019-06-28] MEDS: ATORVASTATIN 20 MG TAB GTB SCH (20:04)
[2019-06-29] VITALS (41 sets, daily range): BP systolic 100–156; BP diastolic 63–121; PULSE 58–79; RESP 21–30
[2019-06-29] MEDS: IPRATROPIUM (HFA) 12.9 GM INHALER INH SCH ×4 (01:36→19:27)
[2019-06-29] MEDS: LEVALBUTEROL (HFA) 15 GM INHALER INH SCH ×4 (01:36→19:27)
[2019-06-29] MEDS: INSULIN ASPART [NOVOLOG] 3 ML PEN SC SCH ×6 (01:43→20:20)
[2019-06-29] MEDS: FENTAnyl (DRIP) 1000 mcg/100mL 100 ML IV SCH ×3 (01:57→21:55)
[2019-06-29] MEDS: PROPOFOL 100 ML IV SCH ×3 (03:04→17:59)
[2019-06-29] MEDS: OCULAR LUBRICANT 3.5 GM OPH OINT BOTH EYES SCH ×3 (05:48→17:16)
[2019-06-29] MEDS: HYDROCORTISONE 100 MG INJ IV SCH ×3 (05:51→20:22)
--- NOTE | 2019-06-29 08:16 | CONS ---
Assessment/Plan Assessment/Plan Assessment/Plan (Daily) 1. acute Hypernatremia due to severe dehydration -resolved 2. acute Hyperkalemia due to FLOYD - Resolved 3. acute kidney injury on CKD III due to ATN from sepsis and Prerenal azotemia 4 . Septic shock due to multifocal PNA and UTI 5. Acute hypoxic respiratory failure due to PNA and Septic shock - Failed BIPAP- Intubated on 06/12/19 , 6. H/O severe dementia 7. H/O HTN 8. H/O HL 9. SNF resident 10. acute on chronic encephalopathy 11 h/o Dysphagia S/p G tube placement 12. Hypocalcemia 13. UTI with Urine cx growing ESBL Klebsiella Plan: BUN has been rising to 117, Cr 1.06, K normal, bumex has been stopped and Solu- Cortef decreased to 20 mg Q 8 hr- DNR code status - Poor candidate for dialysis due to age, comorbidiites, consider palliative care follow up and comfort care off all abx now, ID following, plan is to repeat Cultures Ventilator Management as per pulmonary -- not doing well, still requiring high PEEP will follow up Consultation Date/Type/Reason Admit Date/Time Jun 10, 2019 at 12:38 Initial Consult Date 06/11/19 Type of Consult NEPHROLOGY Requesting Provider: MALINI GOMEZ Date/Time of Note DATE: 06/29/19 TIME: 08:15 Exam/Review of Systems Exam Vitals Vital Signs Date Temp Pulse Resp B/P (MAP) Pulse Ox O2 O2 Flow FiO2 Time Delivery Rate 06/29/19 74 26 145/83 100 Mechanical 06:00 (103) Ventilator 06/29/19 100 05:12 06/29/19 98.6 04:00 Intake and Output 06/28/19 06/28/19 06/29/19 1515:00 23:00 07:00 IntakeIntake Total 679.5 ml 565.0 ml 696.2 ml OutputOutput Total 380 ml 1060 ml 1300 ml BalanceBalance 299.5 ml -495.0 ml -603.8 ml Results Result Diagram: 06/29/19 0400 06/29/19 0400 Results 24hrs Laboratory Tests Test 06/28/19 08:39 06/28/19 08:44 06/28/19 12:54 06/28/19 16:51 Bedside Glucose 177 180 191 Blood Gas Specimen Blood arterial Source Arterial Blood 06/28/2019 11:45:30 Date Drawn AM Arterial Blood pH 7.430 (Temp corrected) Arterial Blood 49.3 H pCO2 (Temp correct) Arterial Blood pO2 85.9 (Temp corrected) Arterial Blood 32.0 H HCO3 Arterial Blood 6.9 H Base Excess Arterial Blood 96.1 Oxygen Saturation James Test ACCEPTAB Arterial Blood Gas Right Radial Puncture Site Arterial 0.5 Blood Carboxyhemog lobin Arterial Blood 0.5 Methemoglobin Blood Gas A-a O2 577.8 H Differential Oxyhemoglobin 95.1 Percent Blood Gas 37.0 Temperature Blood Gas 26.0 Respiration Rate Blood Gas Actual 26 Respiration Rate Blood Gas Modality VENT - PC FiO2 100.0 Blood Gas 1.0 Inspiratory Time Blood Gas Low PEEP 10.0 Setting Blood Gas 35.0 Inspiratory Pressure Blood Gas Notified JENNIE KOHLI Whom Blood Gas Notified 06/28/2019 11:58:36 Time AM Test 06/28/19 20:09 06/28/19 21:17 06/29/19 00:30 06/29/19 04:00 Bedside Glucose 184 196 Hemoglobin 10.0 #L 9.5 L Hematocrit 31.2 #L 29.5 L White Blood Count 17.8 H Red Blood Count 3.19 #L Mean Corpuscular 92.5 Volume Mean Corpuscular 29.8 Hemoglobin Mean Corpuscular 32.2 Hemoglobin Concent Red Cell 15.2 H Distribution Width Platelet Count 119 L Mean Platelet 11.6 H Volume Immature 1.100 H Granulocytes % Neutrophils % 92.5 H Lymphocytes % 2.2 L Monocytes % 3.3 Eosinophils % 0.8 Basophils % 0.1 Nucleated Red 0.0 Blood Cells % Immature 0.190 H Granulocytes # Neutrophils # 16.5 H Lymphocytes # 0.4 L Monocytes # 0.6 Eosinophils # 0.2 Basophils # 0.0 Nucleated Red 0.0 Blood Cells # Sodium Level 143 Potassium Level 3.9 Chloride Level 102 Carbon Dioxide 35 H Level Anion Gap 6 Blood Urea 117 H Nitrogen Creatinine 1.06 H Est Glomerular Filtrat Rate mL/min Glucose Level 166 Calcium Level 8.4 Phosphorus Level 4.6 Magnesium Level 2.5 Test 06/29/19 05:47 Bedside Glucose 192 Medications Medication Current Medications IV Flush (NS 3 ml) 3 ml PER PROTOCOL IV ; Start 06/10/19 at 12:00 Ondansetron HCl (Zofran Inj) 4 mg Q6H PRN IV NAUSEA/VOMITING; Start 06/10/19 at 12:00 Acetaminophen (Tylenol Tab) 650 mg Q6H PRN PO .PAIN 1-3 OR TEMP Last administered on 06/13/19at 15:52; Admin Dose 650 MG; Start 06/10/19 at 12:00 Acetaminophen/ Hydrocodone Bitart ([place] (5/325)) 1 tab Q6H PRN PO .PAIN 4-6; Start 06/10/19 at 12:00 Morphine Sulfate (morphine) 2 mg Q4H PRN IV .PAIN 7-10 Last administered on 05/27 16:57; Admin Dose 2 MG; Start 06/10/19 at 12:00 Amiodarone HCl (Cordarone) 100 mg DAILY GTB Last administered on 06/28/19 08:42; Admin Dose 100 MG; Start 06/11/19 at 09:00 Atorvastatin Calcium (Lipitor) 20 mg QHS GTB Last administered on 06/28/19 20:04; Admin Dose 20 MG; Start 06/10/19 at 21:00 Levetiracetam (Keppra Liquid) 500 mg BID GTB Last administered on 06/28/19 20:04; Admin Dose 500 MG; Start 06/10/19 at 21:00 Olanzapine (Zyprexa) 5 mg DAILY GTB Last administered on 06/28/19 08:40; Admin Dose 5 MG; Start 06/11/19 at 09:00 Polyethylene Glycol (Miralax) 17 gm DAILY GTB Last administered on 06/28/19 08:43; Admin Dose 17 GM; Start 06/11/19 at 09:00 Miscellaneous Information 1 ea NOTE XX ; Start 06/10/19 at 14:00 Glucose (Glutose) 15 gm Q15M PRN PO DECREASED GLUCOSE; Start 06/10/19 at 14:00 Glucose (Glutose) 22.5 gm Q15M PRN PO DECREASED GLUCOSE; Start 06/10/19 at 14:00 Dextrose (D50w Syringe) 25 ml Q15M PRN IV DECREASED GLUCOSE; Start 06/10/19 at 14:00 Dextrose (D50w Syringe) 50 ml Q15M PRN IV DECREASED GLUCOSE; Start 06/10/19 at 14:00 Glucagon (Glucagen) 1 mg Q15M PRN IM DECREASED GLUCOSE; Start 06/10/19 at 14:00 Glucose (Glutose) 15 gm Q15M PRN BUCCAL DECREASED GLUCOSE; Start 06/10/19 at 14:00 IV Flush (NS 10 ml) 10 ml [id number] PRN IV Line Patency; Start 06/10/19 at 16:00 Fluvoxamine Maleate (Fluvoxamine Maleate) 25 mg DAILY GTB Last administered on 06/28/19 08:40; Admin Dose 25 MG; Start 06/11/19 at 09:00 Aspirin (Aspirin) 81 mg DAILY PEG Last administered on 06/28/19 08:40; Admin Dose 81 MG; Start 06/11/19 at 09:00 Heparin Sodium (Porcine) (Heparin (5000 Units/1ml)) 5,000 unit Q8 SC Last administered on 06/14/19 06:01; Admin Dose 5,000 UNIT; Start 06/11/19 at 14:00; Status Hold Ipratropium [place] (Atrovent 0.02% (Neb)) 0.5 mg Q4H RESP THERAPY PRN HHN SHORTNESS OF BREATH; Start 06/12/19 at 10:00 Levalbuterol (Xopenex Neb) 1.25 mg Q4H RESP THERAPY PRN HHN shortness of breath; Start 06/12/19 at 10:00 Fentanyl 100 ml @ 2.5 mls/hr TITRATE IV Last administered on 06/29/19 01:57; Admin Dose 10 MLS/HR; Start 06/12/19 at 10:00 Phenylephrine HCl 80 mg/Dextrose 250 ml @ 18.75 mls/ hr TITRATE IV Last administered on 06/16/19 08:39; Admin Dose 15.1 MLS/HR; Start 06/12/19 at 14:00 Levalbuterol (Xopenex Hfa) 4 puff Q6H RESP THERAPY INH Last administered on 06/29/19 01:36; Admin Dose 4 PUFF; Start 06/12/19 at 20:00 Ipratropium [place] (Atrovent Hfa) 4 puff Q6H RESP THERAPY INH Last administered on 06/29/19 01:36; Admin Dose 4 PUFF; Start 06/12/19 at 20:00 Norepinephrine 32 mg/Dextrose 250 ml @ 0.47 mls/hr TITRATE IV Last adm inistered on 06/18/19 23:09; Admin Dose 0.94 MLS/HR; Start 06/13/19 at 08:00 Docusate Sodium (Colace Liquid Cup) 100 mg BID GTB Last administered on 06/28/19 20:04; Admin Dose 100 MG; Start 06/14/19 at 12:30 Insulin Aspart (Novolog Insulin Pen) NOVOLOG *MILD* ALGORI... Q4 SC Last administered on 06/29/19 06:10; Admin Dose 2 UNIT; Start 06/16/19 at 21:00 Insulin Glargine (Lantus) 15 units DAILY@0800 SC Last administered on 06/28/19 08:44; Admin Dose 15 UNITS; Start 06/18/19 at 08:00 Midazolam HCl 50 ml @ 1 mls/hr TITRATE IV Last administered on 06/18/19 09:43; Admin Dose 2 MLS/HR; Start 06/17/19 at 15:30 Propofol 100 ml @ 1.656 mls/ hr Q12H IV Last administered on 06/29/19 03:04; Admin Dose 16.56 MLS/HR; Start 06/18/19 at 10:00 Lactobacillus Acidophilus/ Rhamnosus (Culturelle) 1 cap TID PO Last administered on 06/28/19 20:04; Admin Dose 1 CAP; Start 06/18/19 at 21:00 Eye Lubricant (Artificial Tears Oph) 2 drop QID BOTH EYES Last administered on 06/28/19 20:06; Admin Dose 2 DROP; Start 06/23/19 at 09:30 Eye Lubricant (Akwa Oint) 1 applic Q6 BOTH EYES Last administered on 06/29/19 05:48; Admin Dose 1 APPLIC; Start 06/23/19 at 12:00 Potassium Chloride (Potassium Chloride Pwd/Soln) 20 meq PER PROTOCOL PRN GTB POTASSIUM REPLACEMENT PROTOCOL Last administered on 06/25/19 09:35; Admin Dose 20 MEQ; Start 06/21/19 at 09:30 Potassium Chloride (Potassium Chloride Pwd/Soln) 30 meq PER PROTOCOL PRN GTB POTASSIUM REPLACEMENT PROTOCOL Last administered on 8/2/19at 21:06; Admin Dose 30 MEQ; Start 06/21/19 at 09:30 Potassium Chloride (Potassium Chloride Pwd/Soln) 40 meq PER PROTOCOL PRN GTB POTASSIUM REPLACEMENT PROTOCOL; Start 06/21/19 at 09:30 Hydrocortisone (Solu-Cortef) 20 mg Q8 IV Last administered on 06/29/19at 05:51; Admin Dose 20 MG; Start 06/27/19 at 14:00 GERMAN FELIX MD Jun 29, 2019 08:16
[2019-06-29] MEDS: FLUVOXAMINE MALEATE 25 MG TABLET GTB SCH (08:48)
[2019-06-29] MEDS: OLANZAPINE 5 MG TAB GTB SCH (08:48)
[2019-06-29] MEDS: LEVETIRACETAM (100 MG/ML) 5ML CUP GTB SCH ×2 (08:48→20:20)
[2019-06-29] MEDS: DOCUSATE SODIUM 10 MG/ML (10ML CUP) GTB SCH ×2 (08:48→20:20)
[2019-06-29] MEDS: LACTOBACILLUS RHAMNOSUS CAP PO SCH ×3 (08:48→20:20)
[2019-06-29] MEDS: ASPIRIN 81 MG TAB PEG SCH (08:49)
--- NOTE | 2019-06-29 08:49 | PN ---
Date/Time of Note Date/Time of Note DATE: 06/29/19 TIME: 08:48 Objective Vitals Vital Signs Date Temp Pulse Resp B/P (MAP) Pulse Ox O2 O2 Flow FiO2 Time Delivery Rate 06/29/19 74 26 145/83 100 Mechanical 06:00 (103) Ventilator 06/29/19 100 05:12 06/29/19 98.6 04:00 Intake and Output 06/28/19 06/28/19 06/29/19 1515:00 23:00 07:00 IntakeIntake Total 679.5 ml 565.0 ml 696.2 ml OutputOutput Total 380 ml 1060 ml 1300 ml BalanceBalance 299.5 ml -495.0 ml -603.8 ml Results Result Diagram: 06/29/19 0400 06/29/19 0400 Medications Medications Current Medications IV Flush (NS 3 ml) 3 ml PER PROTOCOL IV ; Start 06/10/19 at 12:00 Ondansetron HCl (Zofran Inj) 4 mg Q6H PRN IV NAUSEA/VOMITING; Start 06/10/19 at 12:00 Acetaminophen (Tylenol Tab) 650 mg Q6H PRN PO .PAIN 1-3 OR TEMP Last administered on 06/13/19at 15:52; Admin Dose 650 MG; Start 06/10/19 at 12:00 Acetaminophen/ Hydrocodone Bitart ([place] (5/325)) 1 tab Q6H PRN PO .PAIN 4-6; Start 06/10/19 at 12:00 Morphine Sulfate (morphine) 2 mg Q4H PRN IV .PAIN 7-10 Last administered on 06/15/19at 16:57; Admin Dose 2 MG; Start 06/10/19 at 12:00 Amiodarone HCl (Cordarone) 100 mg DAILY GTB Last administered on 06/28/19 08:42; Admin Dose 100 MG; Start 06/11/19 at 09:00 Atorvastatin Calcium (Lipitor) 20 mg QHS GTB Last administered on 06/28/19at 20:0 4; Admin Dose 20 MG; Start 06/10/19 at 21:00 Levetiracetam (Keppra Liquid) 500 mg BID GTB Last administered on 06/28/19 20:04; Admin Dose 500 MG; Start 06/10/19 at 21:00 Olanzapine (Zyprexa) 5 mg DAILY GTB Last administered on 06/28/19 08:40; Admin Dose 5 MG; Start 06/11/19 at 09:00 Polyethylene Glycol (Miralax) 17 gm DAILY GTB Last administered on 06/28/19at 08:43; Admin Dose 17 GM; Start 06/11/19 at 09:00 Miscellaneous Information 1 ea NOTE XX ; Start 06/10/19 at 14:00 Glucose (Glutose) 15 gm Q15M PRN PO DECREASED GLUCOSE; Start 06/10/19 at 14:00 Glucose (Glutose) 22.5 gm Q15M PRN PO DECREASED GLUCOSE; Start 06/10/19 at 14:00 Dextrose (D50w Syringe) 25 ml Q15M PRN IV DECREASED GLUCOSE; Start 06/10/19 at 14:00 Dextrose (D50w Syringe) 50 ml Q15M PRN IV DECREASED GLUCOSE; Start 06/10/19 at 14:00 Glucagon (Glucagen) 1 mg Q15M PRN IM DECREASED GLUCOSE; Start 06/10/19 at 14:00 Glucose (Glutose) 15 gm Q15M PRN BUCCAL DECREASED GLUCOSE; Start 06/10/19 at 14:00 IV Flush (NS 10 ml) 10 ml [id number] PRN IV Line Patency; Start 06/10/19 at 16:00 Fluvoxamine Maleate (Fluvoxamine Maleate) 25 mg DAILY GTB Last administered on 06/28/19at 08:40; Admin Dose 25 MG; Start 06/11/19 at 09:00 Aspirin (Aspirin) 81 mg DAILY PEG Last administered on 06/28/19at 08:40; Admin Dose 81 MG; Start 06/11/19 at 09:00 Heparin Sodium (Porcine) (Heparin (5000 Units/1ml)) 5,000 unit Q8 SC Last administered on 06/14/19at 06:01; Admin Dose 5,000 UNIT; Start 06/11/19 at 14:00; Status Hold Ipratropium [place] (Atrovent 0.02% (Neb)) 0.5 mg Q4H RESP THERAPY PRN HHN SHORTNESS OF BREATH; Start 06/12/19 at 10:00 Levalbuterol (Xopenex Neb) 1.25 mg Q4H RESP THERAPY PRN HHN shortness of breath; Start 06/12/19 at 10:00 Fentanyl 100 ml @ 2.5 mls/hr TITRATE IV Last administered on 06/29/19 01:57; Admin Dose 10 MLS/HR; Start 06/12/19 at 10:00 Phenylephrine HCl 80 mg/Dextrose 250 ml @ 18.75 mls/ hr TITRATE IV Last administered on 06/16/19 08:39; Admin Dose 15.1 MLS/HR; Start 06/12/19 at 14:00 Levalbuterol (Xopenex Hfa) 4 puff Q6H RESP THERAPY INH Last administered on 06/29/19 01:36; Admin Dose 4 PUFF; Start 06/12/19 at 20:00 Ipratropium [place] (Atrovent Hfa) 4 puff Q6H RESP THERAPY INH Last adminis tered on 06/29/19 01:36; Admin Dose 4 PUFF; Start 06/12/19 at 20:00 Norepinephrine 32 mg/Dextrose 250 ml @ 0.47 mls/hr TITRATE IV Last administered on 06/18/19 23:09; Admin Dose 0.94 MLS/HR; Start 06/13/19 at 08:00 Docusate Sodium (Colace Liquid Cup) 100 mg BID GTB Last administered on 06/28/19 20:04; Admin Dose 100 MG; Start 06/14/19 at 12:30 Insulin Aspart (Novolog Insulin Pen) NOVOLOG *MILD* ALGORI... Q4 SC Last administered on 06/29/19 06:10; Admin Dose 2 UNIT; Start 06/16/19 at 21:00 Insulin Glargine (Lantus) 15 units DAILY@0800 SC Last administered on 06/28/19 08:44; Admin Dose 15 UNITS; Start 06/18/19 at 08:00 Midazolam HCl 50 ml @ 1 mls/hr TITRATE IV Last administered on 06/18/19 09:43; Admin Dose 2 MLS/HR; Start 06/17/19 at 15:30 Propofol 100 ml @ 1.656 mls/ hr Q12H IV Last administered on 06/29/19 03:04; Admin Dose 16.56 MLS/HR; Start 06/18/19 at 10:00 Lactobacillus Acidophilus/ Rhamnosus (Culturelle) 1 cap TID PO Last administered on 06/28/19 20:04; Admin Dose 1 CAP; Start 06/18/19 at 21:00 Eye Lubricant (Artificial Tears Oph) 2 drop QID BOTH EYES Last administered on 06/28/19 20:06; Admin Dose 2 DROP; Start 06/23/19 at 09:30 Eye Lubricant (Akwa Oint) 1 applic Q6 BOTH EYES Last administered on 06/29/19 05:48; Admin Dose 1 APPLIC; Start 06/23/19 at 12:00 Potassium Chloride (Potassium Chloride Pwd/Soln) 20 meq PER PROTOCOL PRN GTB POTASSIUM REPLACEMENT PROTOCOL Last administered on 06/25/19 09:35; Admin Dose 20 MEQ; Start 06/21/19 at 09:30 Potassium Chloride (Potassium Chloride Pwd/Soln) 30 meq PER PROTOCOL PRN GTB POTASSIUM REPLACEMENT PROTOCOL Last administered on 06/27/19 21:06; Admin Dose 30 MEQ; Start 06/21/19 at 09:30 Potassium Chloride (Potassium Chloride Pwd/Soln) 40 meq PER PROTOCOL PRN GTB POTASSIUM REPLACEMENT PROTOCOL; Start 06/21/19 at 09:30 Hydrocortisone (Solu-Cortef) 20 mg Q8 IV Last administered on 06/29/19 05:51; Admin Dose 20 MG; Start 06/27/19 at 14:00 VTE Prophylaxis Risk score (from Ns)>0 risk: 12 [place] [facility] [place] Lines/Catheters IV Catheter Type: Dial in Place: No Assessment/Plan Hospital Course Subjective Patient still intubated, sedated, made lots of urine overnight Objective Physical exam General: Patient is intubated, sedated Mentation: Patient is intubated and sedated Head: Normocephalic atraumatic Eyes: EOMI, pupils reactive to light Neck: Supple, nontender, midline Respiratory: Coarse to auscultation bilaterally Cardiovascular: Regular rate, no obvious murmurs Gastrointestinal: non-tender to palpation, bowel sounds heard. Neurological: Moves all extremities spontaneously to noxious stimuli Skin: No new skin lesions, PEG tube site present Assessment/Plan 1. Acute hypoxic respiratory failure, ARDS secondary to sepsis - CXR noted with increased congestion - cont bumex per nephro - Discussed with son done as family needs to decide on trach vs comfort care. Will discuss with siblings - Pulm on board and appreciate recommendations - wean down vent settings as able. Still on high fio2 req - Continue IV antibiotics per ID recommendations. -Slightly more stable after 12 hours of Bumex drip yesterday 2. Multifocal pneumonia - Sputum cx noted with MRSA and Bridget - ID on board and appreciate recommendations 3. Hypokalemia - replace 4. Abdominal distension - KUB noted and US with small ascites, same with repeat - most likely secondary to anasarca. -Persistent, CT of the abdomen pelvis was ordered but unable to be completed due to high PEEP on ventilator and transportation issues 5. Atrial fibrillation with RVR- resolved - back in sinus rhythm - Cardiology consultation appreciated 6. Non-ST elevated NC - Cardiology consultation appreciated and will continue current medications - Very mild elevation - continue aspirin and statin 7. Thrombocytopenia-improving - Very likely due to septic shock - Fibrinogen is elevated, unlikely DIC anemia -likely chronic diease as well as multiple lab draws, had some incidental bleeding in the oral cavity that has not subsided overnight, transfuse as needed -replete as needed. 8. Chronic dysphasia - Patient has PEG tube 9. Diabetes mellitus - continue on Lantus and ISS - sugars controlled 10. Chronic encephalopathy - CT of the brain initially showed alarming findings however there appears to be a mixup with patient's name, patient's actual name is Trey Roberts, [id number]. Neurosurgeon was initially consulted for possible brain bleed and other findings however when comparing to the patient's actual chart in 2013, neurosurgeon reviewed the CT and MRI and found a similar findings with no acute emergent change. - Monitor closely, patient appears to be at baseline 11. Dyslipidemia - Continue home meds 12. Mood disorder - Continue home meds 13. Chronic kidney disease - stable - nephrology consultation appreciated 14. Failure to thrive - now DNR per families request 15. Anasarca - cont bumex per nephro recs 16. Disposition - Continue monitoring in ICU while on vent support. family to decide trach vs comfort care. I spoke with 1 of patient's sons, who will reach out to his siblings, appears patient's daughter is back in [place] is not in [place] as was previously thought, when attempting to arrange family meeting over the week end, patient stated that he will try to arrange a three-way call, he was unable to even give me a direction they are leaning towards regarding tracheostomy versus comfort care. Very poor prognosis, patient continues to deteriorate despite all efforts. Efforts to call family to make a decision seem to be at a roadblock, will ask social work assistant to schedule bioethics meeting. >35 minutes of critical care spent with patient at bedside. MALINI GOMEZ Jun 29, 2019 08:49
[2019-06-29] MEDS: AMIODARONE 200 MG TAB GTB SCH (08:50)
[2019-06-29] MEDS: ARTIFICIAL TEARS 15 ML OPH BOTH EYES SCH ×4 (08:50→20:21)
[2019-06-29] MEDS: POLYETHYLENE GLYCOL 17 GM PACKET GTB SCH (08:51)
[2019-06-29] MEDS: BALSAM PERU/CASTOR OIL 60 GM TUBE TOP SCH (08:51)
[2019-06-29] MEDS: INSULIN GLARGINE [LANTus] (100 UNITS/ML) SYG SC SCH (09:21)
--- NOTE | 2019-06-29 11:42 | CONS ---
Consult Date/Type/Reason Admit Date/Time Jun 10, 2019 at 12:38 Initial Consult Date 06/11/19 Type of Consultation: Pulm/CCM Requesting Provider: MALINI GOMEZ Date/Time of Note DATE: 06/29/19 TIME: 11:39 Subjective Continues to do poorly on mechanical ventilation. Sedated on propofol and fentanyl gtt. Objective Vitals Vital Signs Date Temp Pulse Resp B/P (MAP) Pulse Ox O2 O2 Flow FiO2 Time Delivery Rate 06/29/19 73 26 142/79 100 Mechanical 09:00 (100) Ventilator 06/29/19 100 08:00 06/29/19 98.5 08:00 Intake and Output 06/28/19 06/28/19 06/29/19 1515:00 23:00 07:00 IntakeIntake Total 679.5 ml 565.0 ml 762.8 ml OutputOutput Total 380 ml 1060 ml 1525 ml BalanceBalance 299.5 ml -495.0 ml -762.2 ml Exam HEENT: Neck supple; no JVD; no LAD; + ET tube CVS: RRR, S1 and S2 CHEST: Coarse BS B/L ABD: Soft, NT, + BS EXT: No c/c; + edema Results/Medications Result Diagram: 06/29/19 0400 06/29/19 0400 Results 24 hrs Laboratory Tests Test 06/28/19 12:54 06/28/19 16:51 06/28/19 20:09 06/28/19 21:17 Bedside Glucose 180 191 184 Hemoglobin 10.0 #L Hematocrit 31.2 #L Test 06/29/19 00:30 06/29/19 04:00 06/29/19 05:47 06/29/19 08:53 Bedside Glucose 196 192 178 White Blood Count 17.8 H Red Blood Count 3.19 #L Hemoglobin 9.5 L Hematocrit 29.5 L Mean Corpuscular Volume 92.5 Mean Corpuscular 29.8 Hemoglobin Mean Corpuscular 32.2 Hemoglobin Concent Red Cell Distribution 15.2 H Width Platelet Count 119 L Mean Platelet Volume 11.6 H Immature Granulocytes % 1.100 H Neutrophils % 92.5 H Lymphocytes % 2.2 L Monocytes % 3.3 Eosinophils % 0.8 Basophils % 0.1 Nucleated Red Blood 0.0 Cells % Immature Granulocytes # 0.190 H Neutrophils # 16.5 H Lymphocytes # 0.4 L Monocytes # 0.6 Eosinophils # 0.2 Basophils # 0.0 Nucleated Red Blood 0.0 Cells # Sodium Level 143 Potassium Level 3.9 Chloride Level 102 Carbon Dioxide Level 35 H Anion Gap 6 Blood Urea Nitrogen 117 H Creatinine 1.06 H Est Glomerular Filtrat Rate mL/min Glucose Level 166 Calcium Level 8.4 Phosphorus Level 4.6 Magnesium Level 2.5 Home Meds Reported Medications Pantoprazole* (Protonix*) 40 Mg Tablet.dr, 40 MG PO DAILY, TAB 09/03/14 Donepezil* (Aricept*) 5 Mg Tablet, 5 MG PO DAILY, TAB 09/03/14 Atorvastatin Calcium* (Atorvastatin Calcium*) 20 Mg Tablet, 20 MG PO HS, TAB 09/03/14 Saxagliptin Hcl/Metformin Hcl (KOMBIGLYZE XR 5-500 MG TABLET) 1 Each Tbmp.24hr, 1 EACH PO DAILY 09/03/14 Medications Current Medications IV Flush (NS 3 ml) 3 ml PER PROTOCOL IV ; Start 06/10/19 at 12:00 Ondansetron HCl (Zofran Inj) 4 mg Q6H PRN IV NAUSEA/VOMITING; Start 06/10/19 at 12:00 Acetaminophen (Tylenol Tab) 650 mg Q6H PRN PO .PAIN 1-3 OR TEMP Last administered on 06/13/19at 15:52; Admin Dose 650 MG; Start 06/10/19 at 12:00 Acetaminophen/ Hydrocodone Bitart ([place] (5/325)) 1 tab Q6H PRN PO .PAIN 4-6; Start 06/10/19 at 12:00 Morphine Sulfate (morphine) 2 mg Q4H PRN IV .PAIN 7-10 Last administered on 06/15/19at 16:57; Admin Dose 2 MG; Start 06/10/19 at 12:00 Amiodarone HCl (Cordarone) 100 mg DAILY GTB Last administered on 06/29/19at 08:5 0; Admin Dose 100 MG; Start 06/11/19 at 09:00 Atorvastatin Calcium (Lipitor) 20 mg QHS GTB Last administered on 06/28/19at 20:04; Admin Dose 20 MG; Start 06/10/19 at 21:00 Levetiracetam (Keppra Liquid) 500 mg BID GTB Last administered on 06/29/19 08:48; Admin Dose 500 MG; Start 06/10/19 at 21:00 Olanzapine (Zyprexa) 5 mg DAILY GTB Last administered on 06/29/19 08:48; Admin Dose 5 MG; Start 06/11/19 at 09:00 Polyethylene Glycol (Miralax) 17 gm DAILY GTB Last administered on 06/28/19 08:43; Admin Dose 17 GM; Start 06/11/19 at 09:00 Miscellaneous Information 1 ea NOTE XX ; Start 06/10/19 at 14:00 Glucose (Glutose) 15 gm Q15M PRN PO DECREASED GLUCOSE; Start 06/10/19 at 14:00 Glucose (Glutose) 22.5 gm Q15M PRN PO DECREASED GLUCOSE; Start 06/10/19 at 14:00 Dextrose (D50w Syringe) 25 ml Q15M PRN IV DECREASED GLUCOSE; Start 06/10/19 at 14:00 Dextrose (D50w Syringe) 50 ml Q15M PRN IV DECREASED GLUCOSE; Start 06/10/19 at 14:00 Glucagon (Glucagen) 1 mg Q15M PRN IM DECREASED GLUCOSE; Start 06/10/19 at 14:00 Glucose (Glutose) 15 gm Q15M PRN BUCCAL DECREASED GLUCOSE; Start 06/10/19 at 14:00 IV Flush (NS 10 ml) 10 ml [id number] PRN IV Line Patency; Start 06/10/19 at 16:00 Fluvoxamine Maleate (Fluvoxamine Maleate) 25 mg DAILY GTB Last administered on 06/29/19 08:48; Admin Dose 25 MG; Start 06/11/19 at 09:00 Aspirin (Aspirin) 81 mg DAILY PEG Last administered on 06/29/19 08:49; Admin D ose 81 MG; Start 06/11/19 at 09:00 Heparin Sodium (Porcine) (Heparin (5000 Units/1ml)) 5,000 unit Q8 SC Last administered on 06/14/19 06:01; Admin Dose 5,000 UNIT; Start 06/11/19 at 14:00; Status Hold Ipratropium [place] (Atrovent 0.02% (Neb)) 0.5 mg Q4H RESP THERAPY PRN HHN SHORTNESS OF BREATH; Start 06/12/19 at 10:00 Levalbuterol (Xopenex Neb) 1.25 mg Q4H RESP THERAPY PRN HHN shortness of breath; Start 06/12/19 at 10:00 Fentanyl 100 ml @ 2.5 mls/hr TITRATE IV Last administered on 06/29/19 01:57; Admin Dose 10 MLS/HR; Start 06/12/19 at 10:00 Phenylephrine HCl 80 mg/Dextrose 250 ml @ 18.75 mls/ hr TITRATE IV Last administered on 06/16/19 08:39; Admin Dose 15.1 MLS/HR; Start 06/12/19 at 14:00 Levalbuterol (Xopenex Hfa) 4 puff Q6H RESP THERAPY INH Last administered on 06/29/19 07:30; Admin Dose 4 PUFF; Start 06/12/19 at 20:00 Ipratropium [place] (Atrovent Hfa) 4 puff Q6H RESP THERAPY INH Last administered on 06/29/19 07:30; Admin Dose 4 PUFF; Start 06/12/19 at 20:00 Norepinephrine 32 mg/Dextrose 250 ml @ 0.47 mls/hr TITRATE IV Last administered on 06/18/19 23:09; Admin Dose 0.94 MLS/HR; Start 06/13/19 at 08:00 Docusate Sodium (Colace Liquid Cup) 100 mg BID GTB Last administered on 06/29/19 08:48; Admin Dose 100 MG; Start 06/14/19 at 12:30 Insulin Aspart (Novolog Insulin Pen) NOVOLOG *MILD* ALGORI... Q4 SC Last administered on 06/29/19 09:22; Admin Dose 1 UNIT; Start 06/16/19 at 21:00 Insulin Glargine (Lantus) 15 units DAILY@0800 SC Last administered on 06/29/19 09:21; Admin Dose 15 UNITS; Start 06/18/19 at 08:00 Midazolam HCl 50 ml @ 1 mls/hr TITRATE IV Last administered on 06/18/19 09:43; Admin Dose 2 MLS/HR; Start 06/17/19 at 15:30 Propofol 100 ml @ 1.656 mls/ hr Q12H IV Last administered on 8/4/19at 10:22; Admin Dose 16.56 MLS/HR; Start 06/18/19 at 10:00 Lactobacillus Acidophilus/ Rhamnosus (Culturelle) 1 cap TID PO Last administered on 06/29/19 08:48; Admin Dose 1 CAP; Start 06/18/19 at 21:00 Eye Lubricant (Artificial Tears Oph) 2 drop QID BOTH EYES Last administered on 06/29/19 08:50; Admin Dose 2 DROP; Start 06/23/19 at 09:30 Eye Lubricant (Akwa Oint) 1 applic Q6 BOTH EYES Last administered on 06/29/19 05:48; Admin Dose 1 APPLIC; Start 06/23/19 at 12:00 Potassium Chloride (Potassium Chloride Pwd/Soln) 20 meq PER PROTOCOL PRN GTB POTASSIUM REPLACEMENT PROTOCOL Last administered on 06/25/19at 09:35; Admin Dose 20 MEQ; Start 06/21/19 at 09:30 Potassium Chloride (Potassium Chloride Pwd/Soln) 30 meq PER PROTOCOL PRN GTB POTASSIUM REPLACEMENT PROTOCOL Last administered on 06/27/19at 21:06; Admin Dose 30 MEQ; Start 06/21/19 at 09:30 Potassium Chloride (Potassium Chloride Pwd/Soln) 40 meq PER PROTOCOL PRN GTB POTASSIUM REPLACEMENT PROTOCOL; Start 06/21/19 at 09:30 Hydrocortisone (Solu-Cortef) 20 mg Q8 IV Last administered on 06/29/19 05:51; Admin Dose 20 MG; Start 06/27/19 at 14:00 Assessment/Plan Assessment/Plan (Daily) IMP: 1. Acute and Refractory Hypoxemic and Hypercapnic Respiratory Failure 2. Multilobar pneumonia--> ARDS 3. Septic Shock--improved 4. Encephalopathy toxic metabolic 5. Thrombocytopenia 6. Dysphagia 7. Anemia RECS: 1. Vent--> Continue with P-AC and PEEP as ordered 2. Allow for increase PaCO2 3. Await further goals of care discussions given futility 4. Abx per ID 5. TF/Free H20 as tolerated 40 min cc time GABY BERRY MD Jun 29, 2019 11:42
--- NOTE | 2019-06-29 17:24 | CONS ---
Assessment/Plan Assessment/Plan Assessment/Plan (Daily) Assessment: PEG tube malfunction, clogged Dysphagia, enteral feeding dependent Acute hypoxic respiratory failure Multifocal pneumonia Sepsis Dementia Anasarca Plan: Enteral feeding tube is clogged and will need to be exchanged. Given patient's critical status and poor prognosis will hold off until bioethics discussion with family on Sunday whether further procedures will benefit patient. Consider PICC line and TPN in the interim. Continue antibiotics and ventilator. Patient seen in collaboration with Dr. Montenegro CC: MAMTA MONTENEGRO MD ; Consultation Date/Type/Reason Admit Date/Time Jun 10, 2019 at 12:38 Date of Consultation: Jun 29, 2019 Type of Consult gastroenterology Reason for Consultation peg tube malfunction Requesting Provider: MALINI GOMEZ Date/Time of Note DATE: 06/29/19 TIME: 17:08 Hx of Present Illness Patient is an 84 y/o elderly [place] female with a past medical history significant for end-stage dementia, nonverbal, bedridden, multiple medical problems including hypertension, A. fib, COPD, diabetes mellitus, dyslipidemia who presents to [facility] from nursing home facility for worsening shortness of breath, admitted for hypoxic respiratory failure. He is currently intubated in the ICU on ventilator support. Patient is baseline encephalopathic and he is nonverbal according to prior records. Additionally, he has a history of dyspagia and is PEG tube dependent. He was found to have the PEG tube clogged this morning and feedings were held. Given his poor prognosis and acute on chronic illness a family meeting is scheduled for Sunday to discuss further aggressive interventions. Subjective hx not possible: pt non-verbal, pt critical status Past Medical History Medical History: high cholesterol, hypertension, other (Dementia, Atrial fibrillation ) Home Meds Reported Medications Pantoprazole* (Protonix*) 40 Mg Tablet.dr, 40 MG PO DAILY, TAB 09/03/14 Donepezil* (Aricept*) 5 Mg Tablet, 5 MG PO DAILY, TAB 09/03/14 Atorvastatin Calcium* (Atorvastatin Calcium*) 20 Mg Tablet, 20 MG PO HS, TAB 09/03/14 Saxagliptin Hcl/Metformin Hcl (KOMBIGLYZE XR 5-500 MG TABLET) 1 Each Tbmp.24hr, 1 EACH PO DAILY 09/03/14 Medications Current Medications IV Flush (NS 3 ml) 3 ml PER PROTOCOL IV ; Start 06/10/19 at 12:00 Ondansetron HCl (Zofran Inj) 4 mg Q6H PRN IV NAUSEA/VOMITING; Start 06/10/19 at 12:00 Acetaminophen (Tylenol Tab) 650 mg Q6H PRN PO .PAIN 1-3 OR TEMP Last administered on 06/13/19 15:52; Admin Dose 650 MG; Start 06/10/19 at 12:00 Acetaminophen/ Hydrocodone Bitart ([place] (5/325)) 1 tab Q6H PRN PO .PAIN 4-6; Start 06/10/19 at 12:00 Morphine Sulfate (morphine) 2 mg Q4H PRN IV .PAIN 7-10 Last administered on 06/15/19at 16:57; Admin Dose 2 MG; Start 06/10/19 at 12:00 Amiodarone HCl (Cordarone) 100 mg DAILY GTB Last administered on 06/29/19 08:50; Admin Dose 100 MG; Start 06/11/19 at 09:00 Atorvastatin Calcium (Lipitor) 20 mg QHS GTB Last administered on 06/28/19at 20:04; Admin Dose 20 MG; Start 06/10/19 at 21:00 Levetiracetam (Keppra Liquid) 500 mg BID GTB Last administered on 06/29/19 08:48; Admin Dose 500 MG; Start 06/10/19 at 21:00 Olanzapine (Zyprexa) 5 mg DAILY GTB Last administered on 06/29/19 08:48; Admin Dose 5 MG; Start 06/11/19 at 09:00 Polyethylene Glycol (Miralax) 17 gm DAILY GTB Last administered on 06/28/19 08:43; Admin Dose 17 GM; Start 06/11/19 at 09:00 Miscellaneous Information 1 ea NOTE XX ; Start 06/10/19 at 14:00 Glucose (Glutose) 15 gm Q15M PRN PO DECREASED GLUCOSE; Start 06/10/19 at 14:00 Glucose (Glutose) 22.5 gm Q15M PRN PO DECREASED GLUCOSE; Start 06/10/19 at 14:00 Dextrose (D50w Syringe) 25 ml Q15M PRN IV DECREASED GLUCOSE; Start 06/10/19 at 14:00 Dextrose (D50w Syringe) 50 ml Q15M PRN IV DECREASED GLUCOSE; Start 06/10/19 at 14:00 Glucagon (Glucagen) 1 mg Q15M PRN IM DECREASED GLUCOSE; Start 06/10/19 at 14:00 Glucose (Glutose) 15 gm Q15M PRN BUCCAL DECREASED GLUCOSE; Start 06/10/19 at 14:00 IV Flush (NS 10 ml) 10 ml [id number] PRN IV Line Patency; Start 06/10/19 at 16:00 Fluvoxamine Maleate (Fluvoxamine Maleate) 25 mg DAILY GTB Last administered on 06/29/19 08:48; Admin Dose 25 MG; Start 06/11/19 at 09:00 Aspirin (Aspirin) 81 mg DAILY PEG Last administered on 06/29/19 08:49; Admin Dose 81 MG; Start 06/11/19 at 09:00 Heparin Sodium (Porcine) (Heparin (5000 Units/1ml)) 5,000 unit Q8 SC Last administered on 06/14/19at 06:01; Admin Dose 5,000 UNIT; Start 06/11/19 at 14:00; Status Hold Ipratropium [place] (Atrovent 0.02% (Neb)) 0.5 mg Q4H RESP THERAPY PRN HHN SHORTNESS OF BREATH; Start 06/12/19 at 10:00 Levalbuterol (Xopenex Neb) 1.25 mg Q4H RESP THERAPY PRN HHN shortness of breath; Start 06/12/19 at 10:00 Fentanyl 100 ml @ 2.5 mls/hr TITRATE IV Last administered on 06/29/19 13:36; Admin Dose 10 MLS/HR; Start 06/12/19 at 10:00 Levalbuterol (Xopenex Hfa) 4 puff Q6H RESP THERAPY INH Last administered on 06/29/19 12:57; Admin Dose 4 PUFF; Start 06/12/19 at 20:00 Ipratropium [place] (Atrovent Hfa) 4 puff Q6H RESP THERAPY INH Last administered on 06/29/19 12:57; Admin Dose 4 PUFF; Start 06/12/19 at 20:00 Docusate Sodium (Colace Liquid Cup) 100 mg BID GTB Last administered on 06/29/19 08:48; Admin Dose 100 MG; Start 06/14/19 at 12:30 Insulin Aspart (Novolog Insulin Pen) NOVOLOG *MILD* ALGORI... Q4 SC Last administered on 06/29/19 09:22; Admin Dose 1 UNIT; Start 06/16/19 at 21:00 Insulin Glargine (Lantus) 15 units DAILY@0800 SC Last administered on 06/29/19 09:21; Admin Dose 15 UNITS; Start 06/18/19 at 08:00 Propofol 100 ml @ 1.656 mls/ hr Q12H IV Last administered on 06/29/19 10:22; Admin Dose 16.56 MLS/HR; Start 06/18/19 at 10:00 Lactobacillus Acidophilus/ Rhamnosus (Culturelle) 1 cap TID PO Last administered on 06/29/19 08:48; Admin Dose 1 CAP; Start 06/18/19 at 21:00 Eye Lubricant (Artificial Tears Oph) 2 drop QID BOTH EYES Last administered on 06/29/19 12:11; Admin Dose 2 DROP; Start 06/23/19 at 09:30 Eye Lubricant (Akwa Oint) 1 applic Q6 BOTH EYES Last administered on 06/29/19 11:55; Admin Dose 1 APPLIC; Start 06/23/19 at 12:00 Potassium Chloride (Potassium Chloride Pwd/Soln) 20 meq PER PROTOCOL PRN GTB POTASSIUM REPLACEMENT PROTOCOL Last administered on 06/25/19 09:35; Admin Dose 20 MEQ; Start 06/21/19 at 09:30 Potassium Chloride (Potassium Chloride Pwd/Soln) 30 meq PER PROTOCOL PRN GTB POTASSIUM REPLACEMENT PROTOCOL Last administered on 06/27/19 21:06; Admin Dose 30 MEQ; Start 06/21/19 at 09:30 Potassium Chloride (Potassium Chloride Pwd/Soln) 40 meq PER PROTOCOL PRN GTB POTASSIUM REPLACEMENT PROTOCOL; Start 06/21/19 at 09:30 Hydrocortisone (Solu-Cortef) 20 mg Q8 IV Last administered on 06/29/19 13:41; Admin Dose 20 MG; Start 06/27/19 at 14:00 Allergies: Coded Allergies: No Known Allergy (Verified , 09/10/14) Past Surgical History Past Surgical Hx: other (not available ) Social History Alcohol Use: none Smoking Status: Unknown if ever smoked Drug Use: none Exam/Review of Systems Exam Vitals Vital Signs Date Temp Pulse Resp B/P (MAP) Pulse Ox O2 O2 Flow FiO2 Time Delivery Rate 06/29/19 70 26 129/68 100 16:30 (88) 06/29/19 98.7 Mechanical 16:00 Ventilator 06/29/19 100 13:00 Intake and Output 06/28/19 06/28/19 06/29/19 1515:00 23:00 07:00 IntakeIntake Total 679.5 ml 565.0 ml 762.8 ml OutputOutput Total 380 ml 1060 ml 1525 ml BalanceBalance 299.5 ml -495.0 ml -762.2 ml Constitutional: non-verbal, other (intubated, unresponsive) Psych: other (unresponsive) Head: normocephalic, atraumatic Eyes: nl conjunctiva, nl lids ENMT: nl external ears & nose, nl lips & teeth, nl nasal mucosa & septum Neck: supple Respiratory: normal air movement Cardiovascular: regular rate and rhythm Gastrointestinal: soft, distended Musculoskeletal: nl extremities to inspection Extremities: normal pulses, edema (diffuse anasarca) Neurological: lethargic, unresponsive Skin: other (diffuse anasarca) Results Result Diagram: 06/29/19 0400 06/29/19 0400 Results 24hrs Laboratory Tests Test 06/28/19 20:09 06/28/19 21:17 06/29/19 00:30 06/29/19 04:00 Bedside Glucose 184 196 Hemoglobin 10.0 #L 9.5 L Hematocrit 31.2 #L 29.5 L White Blood Count 17.8 H Red Blood Count 3.19 #L Mean Corpuscular Volume 92.5 Mean Corpuscular 29.8 Hemoglobin Mean Corpuscular 32.2 Hemoglobin Concent Red Cell Distribution 15.2 H Width Platelet Count 119 L Mean Platelet Volume 11.6 H Immature Granulocytes % 1.100 H Neutrophils % 92.5 H Lymphocytes % 2.2 L Monocytes % 3.3 Eosinophils % 0.8 Basophils % 0.1 Nucleated Red Blood 0.0 Cells % Immature Granulocytes # 0.190 H Neutrophils # 16.5 H Lymphocytes # 0.4 L Monocytes # 0.6 Eosinophils # 0.2 Basophils # 0.0 Nucleated Red Blood 0.0 Cells # Sodium Level 143 Potassium Level 3.9 Chloride Level 102 Carbon Dioxide Level 35 H Anion Gap 6 Blood Urea Nitrogen 117 H Creatinine 1.06 H Est Glomerular Filtrat Rate mL/min Glucose Level 166 Calcium Level 8.4 Phosphorus Level 4.6 Magnesium Level 2.5 Test 06/29/19 05:47 06/29/19 08:53 06/29/19 12:10 Bedside Glucose 192 178 139 Medications Medication Current Medications IV Flush (NS 3 ml) 3 ml PER PROTOCOL IV ; Start 06/10/19 at 12:00 Ondansetron HCl (Zofran Inj) 4 mg Q6H PRN IV NAUSEA/VOMITING; Start 06/10/19 at 12:00 Acetaminophen (Tylenol Tab) 650 mg Q6H PRN PO .PAIN 1-3 OR TEMP Last administered on 06/13/19at 15:52; Admin Dose 650 MG; Start 06/10/19 at 12:00 Acetaminophen/ Hydrocodone Bitart ([place] (5/325)) 1 tab Q6H PRN PO .PAIN 4-6; Start 06/10/19 at 12:00 Morphine Sulfate (morphine) 2 mg Q4H PRN IV .PAIN 7-10 Last administered on 06/15/19at 16:57; Admin Dose 2 MG; Start 06/10/19 at 12:00 Amiodarone HCl (Cordarone) 100 mg DAILY GTB Last administered on 06/29/19 08:50; Admin Dose 100 MG; Start 06/11/19 at 09:00 Atorvastatin Calcium (Lipitor) 20 mg QHS GTB Last administered on 06/28/19at 20:04; Admin Dose 20 MG; Start 06/10/19 at 21:00 Levetiracetam (Keppra Liquid) 500 mg BID GTB Last administered on 06/29/19 08:48; Admin Dose 500 MG; Start 06/10/19 at 21:00 Olanzapine (Zyprexa) 5 mg DAILY GTB Last administered on 06/29/19 08:48; Admin Dose 5 MG; Start 06/11/19 at 09:00 Polyethylene Glycol (Miralax) 17 gm DAILY GTB Last administered on 06/28/19 08 :43; Admin Dose 17 GM; Start 06/11/19 at 09:00 Miscellaneous Information 1 ea NOTE XX ; Start 06/10/19 at 14:00 Glucose (Glutose) 15 gm Q15M PRN PO DECREASED GLUCOSE; Start 06/10/19 at 14:00 Glucose (Glutose) 22.5 gm Q15M PRN PO DECREASED GLUCOSE; Start 06/10/19 at 14:00 Dextrose (D50w Syringe) 25 ml Q15M PRN IV DECREASED GLUCOSE; Start 06/10/19 at 14:00 Dextrose (D50w Syringe) 50 ml Q15M PRN IV DECREASED GLUCOSE; Start 06/10/19 at 14:00 Glucagon (Glucagen) 1 mg Q15M PRN IM DECREASED GLUCOSE; Start 06/10/19 at 14:00 Glucose (Glutose) 15 gm Q15M PRN BUCCAL DECREASED GLUCOSE; Start 06/10/19 at 14:00 IV Flush (NS 10 ml) 10 ml [id number] PRN IV Line Patency; Start 06/10/19 at 16:00 Fluvoxamine Maleate (Fluvoxamine Maleate) 25 mg DAILY GTB Last administered on 06/29/19 08:48; Admin Dose 25 MG; Start 06/11/19 at 09:00 Aspirin (Aspirin) 81 mg DAILY PEG Last administered on 06/29/19 08:49; Admin Dose 81 MG; Start 06/11/19 at 09:00 Heparin Sodium (Porcine) (Heparin (5000 Units/1ml)) 5,000 unit Q8 SC Last administered on 06/14/19 06:01; Admin Dose 5,000 UNIT; Start 06/11/19 at 14:00; Status Hold Ipratropium [place] (Atrovent 0.02% (Neb)) 0.5 mg Q4H RESP THERAPY PRN HHN SHORTNESS OF BREATH; Start 06/12/19 at 10:00 Levalbuterol (Xopenex Neb) 1.25 mg Q4H RESP THERAPY PRN HHN shortness of breath; Start 06/12/19 at 10:00 Fentanyl 100 ml @ 2.5 mls/hr TITRATE IV Last administered on 06/29/19 13:36; Admin Dose 10 MLS/HR; Start 06/12/19 at 10:00 Levalbuterol (Xopenex Hfa) 4 puff Q6H RESP THERAPY INH Last administered on 06/29/19 12:57; Admin Dose 4 PUFF; Start 06/12/19 at 20:00 Ipratropium [place] (Atrovent Hfa) 4 puff Q6H RESP THERAPY INH Last administered on 06/29/19 12:57; Admin Dose 4 PUFF; Start 06/12/19 at 20:00 Docusate Sodium (Colace Liquid Cup) 100 mg BID GTB Last administered on 06/29/19 08:48; Admin Dose 100 MG; Start 06/14/19 at 12:30 Insulin Aspart (Novolog Insulin Pen) NOVOLOG *MILD* ALGORI... Q4 SC Last administered on 06/29/19 09:22; Admin Dose 1 UNIT; Start 06/16/19 at 21:00 Insulin Glargine (Lantus) 15 units DAILY@0800 SC Last administered on 06/29/19 09:21; Admin Dose 15 UNITS; Start 06/18/19 at 08:00 Propofol 100 ml @ 1.656 mls/ hr Q12H IV Last administered on 06/29/19 10:22; Admin Dose 16.56 MLS/HR; Start 06/18/19 at 10:00 Lactobacillus Acidophilus/ Rhamnosus (Culturelle) 1 cap TID PO Last administered on 06/29/19 08:48; Admin Dose 1 CAP; Start 06/18/19 at 21:00 Eye Lubricant (Artificial Tears Oph) 2 drop QID BOTH EYES Last administered on 06/29/19 12:11; Admin Dose 2 DROP; Start 06/23/19 at 09:30 Eye Lubricant (Akwa Oint) 1 applic Q6 BOTH EYES Last administered on 06/29/19 11:55; Admin Dose 1 APPLIC; Start 06/23/19 at 12:00 Potassium Chloride (Potassium Chloride Pwd/Soln) 20 meq PER PROTOCOL PRN GTB POTASSIUM REPLACEMENT PROTOCOL Last administered on 06/25/19 09:35; Admin Dose 20 MEQ; Start 06/21/19 at 09:30 Potassium Chloride (Potassium Chloride Pwd/Soln) 30 meq PER PROTOCOL PRN GTB POTASSIUM REPLACEMENT PROTOCOL Last administered on 06/27/19 21:06; Admin Dose 30 MEQ; Start 06/21/19 at 09:30 Potassium Chloride (Potassium Chloride Pwd/Soln) 40 meq PER PROTOCOL PRN GTB POTASSIUM REPLACEMENT PROTOCOL; Start 06/21/19 at 09:30 Hydrocortisone (Solu-Cortef) 20 mg Q8 IV Last administered on 06/29/19at 13:41; Admin Dose 20 MG; Start 06/27/19 at 14:00 OCHOA FRAIRE NP Jun 29, 2019 17:19
--- NOTE | 2019-06-29 19:01 | CONS ---
Assessment/Plan Assessment/Plan Hospital Course (Demo Recall) ID PROGRESS NOTE CURRENT ABX: DAY # 2=> OFF ABX since 06/27/19 s/p Vanco IV + Merrem s/p zosyn 24H INTERVAL SUMMARY * 84 yo F -- multiple co-morbid conditions * Per notes: GT malfunction w/ plans to replace pending bioethics mtg/conference scheduled for Sunday * SIRS w/ low grade temps improved--Leukocytosis persisting -- IV steroids onboard * Orally intubated, noncommunicative, generalized edema noted * s/p Full course ABX for MRSA + HCAP * INDWELLINGS: Endotracheal tube, PEG, Dial, PICC line placed on 06/10/2019. DIAGNOSTIC IMAGING * 06/28/2019 CXR: No significant interval change.. Extensive bilateral lung infiltrates and probable effusions. * 06/14/19 CXR: Increased bilateral interstitial and alveolar infiltrates concerning for edema, multifocal pneumonia, or pneumonitis. Small left pleural effusion increased. MICRO * 06/12/19 RESPIRATORY CULTURE Final Organism 1 MANINDER ALBICANS QUANTITY SCANT GROWTH Organism 2 METHICILLIN RESISTANT S.AUREUS QUANTITY SCANT GROWTH . MULTI DRUG RESISTANT ORGANISM * 06/10/19 BCx (-) * 06/10/19 URINE CULTURE Final Organism 1 K PNEUMO ESBL COLONY COUNT >100,000 CFU/ml . MULTI DRUG RESISTANT ORGANISM KLEB PNEUM KLEB PNEUM M.I.C. RX M.I.C. RX --------- --- --------- --- AMIKACIN 16 S CEFAZOLIN R CEFEPIME R CEFOTAXIME R CIPROFLOXACIN >=4 R GENTAMICIN >=16 R LEVOFLOXACIN >=8 R MEROPENEM 0.38 S NITROFURANTOIN 256 R TOBRAMYCIN >=16 R TRIMETHOPRIM/SULFAMETHOXAZOLE >=320 R PIPERACILLIN/TAZOBACTAM >=128 R PHYSICAL EXAMINATION: GENERAL: VSS, NAD HEENT: AT, NC, orally intubated NECK: Supple, CHEST: Rise symmetrical HEART: Pulse RRR ABDOMEN: Benign EXTREMITIES: Warm, dry SKIN: No rash, no diaphoresis ID ASSESSMENT 84 yo F w/ PMHx of BRAIN MASS admit with: 1. Severe sepsis with shock => RESOLVED, completed ABX course 2. Acute respiratory failure-> RESOLVING ARDS 3. MRSA + ASP HCAP -> completed course of Vanco IV + Merrem 4. Urinary tract infection with culture grew Klebsiella extended-spectrum beta- lactamase. 5. Jqi-[id number] myocardial infarction. 6. Atrial fibrillation status post rapid ventricular response. 7. Diabetes. 8. Anemia (-)MRSA Nares ABX ALLERGIES: KNDA INVASIVES: ETT, PEG, Dial, PICC line placed on 06/10/2019. CURRENT ABX: DAY # 2 => OFF ABX since 06/27/19 s/p Vanco IV + Merrem s/p zosyn ID RECOMMENDATIONS/PLAN: 1. Has completed > 2 week course ABX for MRSA/HCAP/ARDS * Leukocytosis persisting -- IV steroids onboard * MONITOR OFF ABX for recurrent sepsis 2. For TEMP > 101.0-- > Repeat Blood, Urine, Sputum Cx 3. Per notes: GT malfunction w/ plans to replace pending bioethics mtg/ conference scheduled for Sunday . Consultation Date/Type/Reason Admit Date/Time Jun 10, 2019 at 12:38 Initial Consult Date 06/11/19 Requesting Provider: MALINI GOMEZ Date/Time of Note DATE: 06/29/19 TIME: 18:59 Exam/Review of Systems Exam Vitals Vital Signs Date Temp Pulse Resp B/P (MAP) Pulse Ox O2 O2 Flow FiO2 Time Delivery Rate 06/29/19 66 26 133/73 100 18:01 (93) 06/29/19 Mechanical 18:00 Ventilator 06/29/19 100 17:05 06/29/19 98.7 16:00 Intake and Output 06/28/19 06/28/19 06/29/19 1515:00 23:00 07:00 IntakeIntake Total 679.5 ml 565.0 ml 762.8 ml OutputOutput Total 380 ml 1060 ml 1525 ml BalanceBalance 299.5 ml -495.0 ml -762.2 ml Results Result Diagram: 06/29/19 0400 06/29/19 0400 Results 24hrs Laboratory Tests Test 06/28/19 20:09 06/28/19 21:17 06/29/19 00:30 06/29/19 04:00 Bedside Glucose 184 196 Hemoglobin 10.0 #L 9.5 L Hematocrit 31.2 #L 29.5 L White Blood Count 17.8 H Red Blood Count 3.19 #L Mean Corpuscular Volume 92.5 Mean Corpuscular 29.8 Hemoglobin Mean Corpuscular 32.2 Hemoglobin Concent Red Cell Distribution 15.2 H Width Platelet Count 119 L Mean Platelet Volume 11.6 H Immature Granulocytes % 1.100 H Neutrophils % 92.5 H Lymphocytes % 2.2 L Monocytes % 3.3 Eosinophils % 0.8 Basophils % 0.1 Nucleated Red Blood 0.0 Cells % Immature Granulocytes # 0.190 H Neutrophils # 16.5 H Lymphocytes # 0.4 L Monocytes # 0.6 Eosinophils # 0.2 Basophils # 0.0 Nucleated Red Blood 0.0 Cells # Sodium Level 143 Potassium Level 3.9 Chloride Level 102 Carbon Dioxide Level 35 H Anion Gap 6 Blood Urea Nitrogen 117 H Creatinine 1.06 H Est Glomerular Filtrat Rate mL/min Glucose Level 166 Calcium Level 8.4 Phosphorus Level 4.6 Magnesium Level 2.5 Test 06/29/19 05:47 06/29/19 08:53 06/29/19 12:10 06/29/19 17:09 Bedside Glucose 192 178 139 90 Medications Medication Current Medications IV Flush (NS 3 ml) 3 ml PER PROTOCOL IV ; Start 06/10/19 at 12:00 Ondansetron HCl (Zofran Inj) 4 mg Q6H PRN IV NAUSEA/VOMITING; Start 06/10/19 at 12:00 Acetaminophen (Tylenol Tab) 650 mg Q6H PRN PO .PAIN 1-3 OR TEMP Last administered on 06/13/19at 15:52; Admin Dose 650 MG; Start 06/10/19 at 12:00 Acetaminophen/ Hydrocodone Bitart ([place] (5/325)) 1 tab Q6H PRN PO .PAIN 4-6; Start 06/10/19 at 12:00 Morphine Sulfate (morphine) 2 mg Q4H PRN IV .PAIN 7-10 Last administered on 06/15/19at 16:57; Admin Dose 2 MG; Start 06/10/19 at 12:00 Amiodarone HCl (Cordarone) 100 mg DAILY GTB Last administered on 06/29/19 08:50; Admin Dose 100 MG; Start 06/11/19 at 09:00 Atorvastatin Calcium (Lipitor) 20 mg QHS GTB Last administered on 06/28/19at 20:04; Admin Dose 20 MG; Start 06/10/19 at 21:00 Levetiracetam (Keppra Liquid) 500 mg BID GTB Last administered on 06/29/19 08:48; Admin Dose 500 MG; Start 06/10/19 at 21:00 Olanzapine (Zyprexa) 5 mg DAILY GTB Last administered on 06/29/19 08:48; Admin Dose 5 MG; Start 06/11/19 at 09:00 Polyethylene Glycol (Miralax) 17 gm DAILY GTB Last administered on 06/28/19at 08:43; Admin Dose 17 GM; Start 06/11/19 at 09:00 Miscellaneous Information 1 ea NOTE XX ; Start 06/10/19 at 14:00 Glucose (Glutose) 15 gm Q15M PRN PO DECREASED GLUCOSE; Start 06/10/19 at 14:00 Glucose (Glutose) 22.5 gm Q15M PRN PO DECREASED GLUCOSE; Start 06/10/19 at 14:00 Dextrose (D50w Syringe) 25 ml Q15M PRN IV DECREASED GLUCOSE; Start 06/10/19 at 14:00 Dextrose (D50w Syringe) 50 ml Q15M PRN IV DECREASED GLUCOSE; Start 06/10/19 at 14:00 Glucagon (Glucagen) 1 mg Q15M PRN IM DECREASED GLUCOSE; Start 06/10/19 at 14:00 Glucose (Glutose) 15 gm Q15M PRN BUCCAL DECREASED GLUCOSE; Start 06/10/19 at 14:00 IV Flush (NS 10 ml) 10 ml [id number] PRN IV Line Patency; Start 06/10/19 at 16:00 Fluvoxamine Maleate (Fluvoxamine Maleate) 25 mg DAILY GTB Last administered on 06/29/19at 08:48; Admin Dose 25 MG; Start 06/11/19 at 09:00 Aspirin (Aspirin) 81 mg DAILY PEG Last administered on 06/29/19at 08:49; Admin Dose 81 MG; Start 06/11/19 at 09:00 Heparin Sodium (Porcine) (Heparin (5000 Units/1ml)) 5,000 unit Q8 SC Last administered on 06/14/19at 06:01; Admin Dose 5,000 UNIT; Start 06/11/19 at 14:00; Status Hold Ipratropium [place] (Atrovent 0.02% (Neb)) 0.5 mg Q4H RESP THERAPY PRN HHN SHORTNESS OF BREATH; Start 06/12/19 at 10:00 Levalbuterol (Xopenex Neb) 1.25 mg Q4H RESP THERAPY PRN HHN shortness of idalmis ath; Start 06/12/19 at 10:00 Fentanyl 100 ml @ 2.5 mls/hr TITRATE IV Last administered on 06/29/19 13:36; Admin Dose 10 MLS/HR; Start 06/12/19 at 10:00 Levalbuterol (Xopenex Hfa) 4 puff Q6H RESP THERAPY INH Last administered on 06/29/19 12:57; Admin Dose 4 PUFF; Start 06/12/19 at 20:00 Ipratropium [place] (Atrovent Hfa) 4 puff Q6H RESP THERAPY INH Last administered on 06/29/19 12:57; Admin Dose 4 PUFF; Start 06/12/19 at 20:00 Docusate Sodium (Colace Liquid Cup) 100 mg BID GTB Last administered on 06/29/19 08:48; Admin Dose 100 MG; Start 06/14/19 at 12:30 Insulin Aspart (Novolog Insulin Pen) NOVOLOG *MILD* ALGORI... Q4 SC Last administered on 06/29/19 09:22; Admin Dose 1 UNIT; Start 06/16/19 at 21:00 Insulin Glargine (Lantus) 15 units DAILY@0800 SC Last administered on 06/29/19 09:21; Admin Dose 15 UNITS; Start 06/18/19 at 08:00 Propofol 100 ml @ 1.656 mls/ hr Q12H IV Last administered on 06/29/19 17:59; Admin Dose 13.248 MLS/HR; Start 06/18/19 at 10:00 Lactobacillus Acidophilus/ Rhamnosus (Culturelle) 1 cap TID PO Last administered on 06/29/19 08:48; Admin Dose 1 CAP; Start 06/18/19 at 21:00 Eye Lubricant (Artificial Tears Oph) 2 drop QID BOTH EYES Last administered on 06/29/19 17:11; Admin Dose 2 DROP; Start 06/23/19 at 09:30 Eye Lubricant (Akwa Oint) 1 applic Q6 BOTH EYES Last administered on 06/29/19 17:16; Admin Dose 1 APPLIC; Start 06/23/19 at 12:00 Potassium Chloride (Potassium Chloride Pwd/Soln) 20 meq PER PROTOCOL PRN GTB POTASSIUM REPLACEMENT PROTOCOL Last administered on 06/25/19at 09:35; Admin Dose 20 MEQ; Start 06/21/19 at 09:30 Potassium Chloride (Potassium Chloride Pwd/Soln) 30 meq PER PROTOCOL PRN GTB POTASSIUM REPLACEMENT PROTOCOL Last administered on 06/27/19at 21:06; Admin Dose 30 MEQ; Start 06/21/19 at 09:30 Potassium Chloride (Potassium Chloride Pwd/Soln) 40 meq PER PROTOCOL PRN GTB POTASSIUM REPLACEMENT PROTOCOL; Start 06/21/19 at 09:30 Hydrocortisone (Solu-Cortef) 20 mg Q8 IV Last administered on 06/29/19at 13:41; Admin Dose 20 MG; Start 06/27/19 at 14:00 ELIAS BRINK NP Jun 29, 2019 19:01
[2019-06-29] MEDS: ATORVASTATIN 20 MG TAB GTB SCH (20:20)
[2019-06-30] VITALS (35 sets, daily range): BP systolic 85–141; BP diastolic 54–78; PULSE 58–79; RESP 0–26
[2019-06-30] MEDS: PROPOFOL 100 ML IV SCH ×3 (00:17→13:42)
[2019-06-30] MEDS: OCULAR LUBRICANT 3.5 GM OPH OINT BOTH EYES SCH ×5 (00:18→23:06)
[2019-06-30] MEDS: INSULIN ASPART [NOVOLOG] 3 ML PEN SC SCH ×6 (00:25→20:40)
[2019-06-30] MEDS: LEVALBUTEROL (HFA) 15 GM INHALER INH SCH ×4 (01:39→19:24)
[2019-06-30] MEDS: IPRATROPIUM (HFA) 12.9 GM INHALER INH SCH ×4 (01:39→19:24)
[2019-06-30] MEDS: DEXTROSE 50% 50 ML SYRINGE IV PRN ×3 (06:10→20:39)
[2019-06-30] MEDS: HYDROCORTISONE 100 MG INJ IV SCH ×3 (06:10→20:40)
[2019-06-30] MEDS: LEVETIRACETAM (100 MG/ML) 5ML CUP GTB SCH ×2 (08:32→20:25)
[2019-06-30] MEDS: FLUVOXAMINE MALEATE 25 MG TABLET GTB SCH (08:32)
[2019-06-30] MEDS: POLYETHYLENE GLYCOL 17 GM PACKET GTB SCH (08:32)
[2019-06-30] MEDS: ASPIRIN 81 MG TAB PEG SCH (08:32)
[2019-06-30] MEDS: OLANZAPINE 5 MG TAB GTB SCH (08:32)
[2019-06-30] MEDS: DOCUSATE SODIUM 10 MG/ML (10ML CUP) GTB SCH ×2 (08:32→20:25)
[2019-06-30] MEDS: LACTOBACILLUS RHAMNOSUS CAP PO SCH ×3 (08:32→20:25)
[2019-06-30] MEDS: AMIODARONE 200 MG TAB GTB SCH (08:33)
[2019-06-30] MEDS: ARTIFICIAL TEARS 15 ML OPH BOTH EYES SCH ×4 (08:35→20:39)
[2019-06-30] MEDS: BALSAM PERU/CASTOR OIL 60 GM TUBE TOP SCH (08:35)
[2019-06-30] MEDS: INSULIN GLARGINE [LANTus] (100 UNITS/ML) SYG SC SCH (08:41)
--- NOTE | 2019-06-30 09:17 | CONS ---
Assessment/Plan Assessment/Plan Assessment/Plan (Daily) Ventilator setting; AC of 26, pressure controlled mode, PEEP of 10, 100% FiO2. Patient is currently on fentanyl 100 mics per hour, propofol 40 mics per kilogram per minute. Assessment and recommendations; 1. Patient admitted with severe bilateral pneumonia with ARDS with worsening hypoxemia. 2. History of dementia 3. Prior history of G-tube placement 4. History of diabetes and seizure disorder. 5. Mild increase in serum creatinine. 6. History of cardiac arrhythmia. Continue current supportive care. Prognosis is extremely poor. Awaiting for family to arrive from out of state to decide about possible palliative care. Consultation Date/Type/Reason Admit Date/Time Jun 10, 2019 at 12:38 Initial Consult Date 06/11/19 Type of Consult Pulmonary/critical care Patient is an 84-year-old [place] lady who was transferred to to the hospital from group home with hypoxemia. Upon evaluation patient is been diagnosed with sepsis due to pneumonia. Patient has advanced dementia and is unable to give any history by herself whatsoever. Patient however is appearing tachypneic. Past medical history; 1. History of chronic atrial fibrillation. 2. Advanced dementia. 3. History of G-tube placement. 4. History of diabetes. 5. History of hypertension. Medications; reviewed. Allergies; none. Social history, family history, occupational history is are not available. Review of systems; unable to be obtained. General exam; elderly woman, on BiPAP. Noncommunicative. Tachypneic. Requesting Provider: MALINI GOMEZ Date/Time of Note DATE: 06/30/19 TIME: 09:14 24 HR Interval Summary Free Text/Dictation Patient's condition is critical. Remains profoundly hypoxemic. General exam; elderly woman, orally intubated, sedated, currently in no distress. Exam/Review of Systems Exam Vitals Vital Signs Date Temp Pulse Resp B/P (MAP) Pulse Ox O2 O2 Flow FiO2 Time Delivery Rate 06/30/19 63 26 118/66 99 Mechanical 06:00 (83) Ventilator 06/30/19 100 05:29 06/30/19 98.5 04:00 Intake and Output 06/29/19 06/29/19 06/30/19 1515:00 23:00 07:00 IntakeIntake Total 269.16 ml 229.06 ml 222.4 ml OutputOutput Total 1075 ml 1050 ml 680 ml BalanceBalance -805.84 ml -820.94 ml -457.6 ml Exam H ENT exam; supple neck, no JVD. No lymphadenopathy. Midline trachea. No thyromegaly. Orally intubated. Patient does have carious teeth. Pupils are small bilaterally. There is mild excoriation at the lips. Chest exam; diminished breath sounds bilaterally with bilateral crackles. S1-S2 audible, no murmurs. Regular rhythm. Abdomen exam; soft, nondistended. G-tube in place. Bowel sounds are audible. Extremity exam; 2+ generalized anasarca. Patient does have patchy ecchymosis. CLAIM REVIEW MEDICAL DIRECTOR exam; patient is sedated. Results Result Diagram: 06/30/19 0400 06/30/19 0400 Results 24hrs Laboratory Tests Test 06/29/19 12:10 06/29/19 17:09 06/29/19 20:19 06/30/19 00:24 Bedside Glucose 139 90 79 75 Test 06/30/19 04:00 06/30/19 05:25 06/30/19 05:31 06/30/19 08:22 White Blood Count 19.8 H Red Blood Count 3.14 L Hemoglobin 9.3 L Hematocrit 28.8 L Mean Corpuscular 91.7 Volume Mean Corpuscular 29.6 Hemoglobin Mean Corpuscular 32.3 Hemoglobin Concent Red Cell 15.1 H Distribution Width Platelet Count 132 L Mean Platelet 11.5 H Volume Immature 0.800 H Granulocytes % Neutrophils % 92.0 H Lymphocytes % 2.5 L Monocytes % 3.8 Eosinophils % 0.8 Basophils % 0.1 Nucleated Red Blood 0.0 Cells % Immature 0.160 H Granulocytes # Neutrophils # 18.2 H Lymphocytes # 0.5 L Monocytes # 0.8 Eosinophils # 0.2 Basophils # 0.0 Nucleated Red Blood 0.0 Cells # Sodium Level 146 H Potassium Level 3.2 L Chloride Level 102 Carbon Dioxide 37 H Level Anion Gap 7 Blood Urea Nitrogen 121 H Creatinine 1.18 H Est Glomerular Filtrat Rate mL/min Glucose Level 63 #L Calcium Level 8.3 L Phosphorus Level 4.4 Magnesium Level 2.5 Lab Scanned Report BLOOD TRANSFUSION Bedside Glucose 60 L 111 Medications Medication Current Medications IV Flush (NS 3 ml) 3 ml PER PROTOCOL IV ; Start 06/10/19 at 12:00 Ondansetron HCl (Zofran Inj) 4 mg Q6H PRN IV NAUSEA/VOMITING; Start 06/10/19 at 12:00 Acetaminophen (Tylenol Tab) 650 mg Q6H PRN PO .PAIN 1-3 OR TEMP Last administered on 06/13/19 15:52; Admin Dose 650 MG; Start 06/10/19 at 12:00 Acetaminophen/ Hydrocodone Bitart ([place] (5/325)) 1 tab Q6H PRN PO .PAIN 4-6; Start 06/10/19 at 12:00 Morphine Sulfate (morphine) 2 mg Q4H PRN IV .PAIN 7-10 Last administered on 06/15/19 16:57; Admin Dose 2 MG; Start 06/10/19 at 12:00 Amiodarone HCl (Cordarone) 100 mg DAILY GTB Last administered on 06/30/19 08:33; Admin Dose 100 MG; Start 06/11/19 at 09:00 Atorvastatin Calcium (Lipitor) 20 mg QHS GTB Last administered on 06/29/19 20:20; Admin Dose 20 MG; Start 06/10/19 at 21:00 Levetiracetam (Keppra Liquid) 500 mg BID GTB Last administered on 06/30/19 08:32; Admin Dose 500 MG; Start 06/10/19 at 21:00 Olanzapine (Zyprexa) 5 mg DAILY GTB Last administered on 06/30/19 08:32; Admin Dose 5 MG; Start 06/11/19 at 09:00 Polyethylene Glycol (Miralax) 17 gm DAILY GTB Last administered on 06/30/19 08:32; Admin Dose 17 GM; Start 06/11/19 at 09:00 Miscellaneous Information 1 ea NOTE XX ; Start 06/10/19 at 14:00 Glucose (Glutose) 15 gm Q15M PRN PO DECREASED GLUCOSE; Start 06/10/19 at 14:00 Glucose (Glutose) 22.5 gm Q15M PRN PO DECREASED GLUCOSE; Start 06/10/19 at 14:00 Dextrose (D50w Syringe) 25 ml Q15M PRN IV DECREASED GLUCOSE; Start 06/10/19 at 14:00 Dextrose (D50w Syringe) 50 ml Q15M PRN IV DECREASED GLUCOSE Last administered on 06/30/19 06:10; Admin Dose 50 ML; Start 06/10/19 at 14:00 Glucagon (Glucagen) 1 mg Q15M PRN IM DECREASED GLUCOSE; Start 06/10/19 at 14:00 Glucose (Glutose) 15 gm Q15M PRN BUCCAL DECREASED GLUCOSE; Start 06/10/19 at 14:00 IV Flush (NS 10 ml) 10 ml [id number] PRN IV Line Patency; Start 06/10/19 at 16:00 Fluvoxamine Maleate (Fluvoxamine Maleate) 25 mg DAILY GTB Last administered on 06/30/19 08:32; Admin Dose 25 MG; Start 06/11/19 at 09:00 Aspirin (Aspirin) 81 mg DAILY PEG Last administered on 06/30/19 08:32; Admin Dose 81 MG; Start 06/11/19 at 09:00 Heparin Sodium (Porcine) (Heparin (5000 Units/1ml)) 5,000 unit Q8 SC Last administered on 06/14/19 06:01; Admin Dose 5,000 UNIT; Start 06/11/19 at 14:00; Status Hold Ipratropium [place] (Atrovent 0.02% (Neb)) 0.5 mg Q4H RESP THERAPY PRN HHN SHOR TNESS OF BREATH; Start 06/12/19 at 10:00 Levalbuterol (Xopenex Neb) 1.25 mg Q4H RESP THERAPY PRN HHN shortness of breath; Start 06/12/19 at 10:00 Fentanyl 100 ml @ 2.5 mls/hr TITRATE IV Last administered on 06/29/19 21:55; Admin Dose 10 MLS/HR; Start 06/12/19 at 10:00 Levalbuterol (Xopenex Hfa) 4 puff Q6H RESP THERAPY INH Last administered on 06/30/19 07:37; Admin Dose 4 PUFF; Start 06/12/19 at 20:00 Ipratropium [place] (Atrovent Hfa) 4 puff Q6H RESP THERAPY INH Last administered on 06/30/19 07:37; Admin Dose 4 PUFF; Start 06/12/19 at 20:00 Docusate Sodium (Colace Liquid Cup) 100 mg BID GTB Last administered on 8/5/19at 08:32; Admin Dose 100 MG; Start 06/14/19 at 12:30 Insulin Aspart (Novolog Insulin Pen) NOVOLOG *MILD* ALGORI... Q4 SC Last administered on 06/29/19 09:22; Admin Dose 1 UNIT; Start 06/16/19 at 21:00 Insulin Glargine (Lantus) 15 units DAILY@0800 SC Last administered on 06/30/19 08:41; Admin Dose 15 UNITS; Start 06/18/19 at 08:00 Propofol 100 ml @ 1.656 mls/ hr Q12H IV Last administered on 06/30/19 06:18; Admin Dose 13.248 MLS/HR; Start 06/18/19 at 10:00 Lactobacillus Acidophilus/ Rhamnosus (Culturelle) 1 cap TID PO Last administered on 06/30/19 08:32; Admin Dose 1 CAP; Start 06/18/19 at 21:00 Eye Lubricant (Artificial Tears Oph) 2 drop QID BOTH EYES Last administered on 06/30/19 08:35; Admin Dose 2 DROP; Start 06/23/19 at 09:30 Eye Lubricant (Akwa Oint) 1 applic Q6 BOTH EYES Last administered on 06/30/19 05:32; Admin Dose 1 APPLIC; Start 06/23/19 at 12:00 Potassium Chloride (Potassium Chloride Pwd/Soln) 20 meq PER PROTOCOL PRN GTB POTASSIUM REPLACEMENT PROTOCOL Last administered on 06/25/19 09:35; Admin Dose 20 MEQ; Start 06/21/19 at 09:30 Potassium Chloride (Potassium Chloride Pwd/Soln) 30 meq PER PROTOCOL PRN GTB POTASSIUM REPLACEMENT PROTOCOL Last administered on 06/27/19 21:06; Admin Dose 30 MEQ; Start 06/21/19 at 09:30 Potassium Chloride (Potassium Chloride Pwd/Soln) 40 meq PER PROTOCOL PRN GTB POTASSIUM REPLACEMENT PROTOCOL Last administered on 06/30/19 08:33; Admin Dose 40 MEQ; Start 06/21/19 at 09:30 Hydrocortisone (Solu-Cortef) 20 mg Q8 IV Last administered on 06/30/19 06:10; Admin Dose 20 MG; Start 06/27/19 at 14:00 CHARAN LAUREANO Jun 30, 2019 09:17
--- NOTE | 2019-06-30 09:52 | PN ---
Date/Time of Note Date/Time of Note DATE: 06/30/19 TIME: 09:52 Assessment/Plan VTE Prophylaxis Risk score (from Nsg)>0 risk: 12 SCD applied (from Nsg): Yes Pharmacological prophylaxis: NA/contraindicated Pharm contraindication: anticoag not tolerated Lines/Catheters IV Catheter Type (from Nrsg): PICC Line Central line still needed: Yes Urinary Cath still in place: Yes Reason Cath still needed: terminal illness/intractable pain Assessment/Plan Assessment/Plan 1. Acute hypoxic respiratory failure, ARDS secondary to sepsis - Discussed with sonGhassan, need to determine goals of care given patient has been on vent for prolonged period of time. Will plan to discuss tomorrow - CXR remains with increased congestion despite being on Bumex - Pulm on board and appreciate recommendations - wean down vent settings as able. Still on high fio2 and PEEP 2. Multifocal pneumonia - Sputum cx noted with MRSA and Bridget - ID on board and appreciate recommendations 3. Hypokalemia secondary to diuretics - replace 4. Abdominal distension - KUB noted and US with small ascites - most likely secondary to anasarca. 5. Atrial fibrillation with RVR- resolved - back in sinus rhythm - Cardiology consultation appreciated 6. Non-ST elevated [place] - Cardiology consultation appreciated and will continue current medications - Very mild elevation - continue aspirin and statin 7. Thrombocytopenia-resolving - Very likely due to septic shock - Fibrinogen is elevated, unlikely DIC 8. anemia - likely chronic disease as well as multiple lab draws - no need for transfusions at this time 8. Chronic dysphasia - Patient has PEG tube 9. Diabetes mellitus - continue on Lantus and ISS - sugars controlled 10. Chronic encephalopathy - CT of the brain initially showed alarming findings however there appears to be a mixup with patient's name, patient's actual name is Trey Roberts, bright [phone]. Neurosurgeon was initially consulted for possible brain bleed and other findings however when comparing to the patient's actual chart in 2013, neurosurgeon reviewed the CT and MRI and found a similar findings with no acute emergent change. - Monitor closely, patient appears to be at baseline 11. Dyslipidemia - Continue home meds 12. Mood disorder - Continue home meds 13. Chronic kidney disease - nephrology consultation appreciated 14. Failure to thrive - now DNR per families request 15. Anasarca - developing FLOYD so Bumex on hold 16. Disposition - Continue on vent support in ICU. Will discuss goals of care with family tomorrow. Patient has very poor prognosis and will recommend transitioning to comfort measures given low likelihood of being weaned off vent and having any type of quality of life following hospitalization >35 minutes of critical care time spent with patient Result Diagram: 06/30/19 0400 06/30/19 0400 Results 24hrs Laboratory Tests Test 06/29/19 12:10 06/29/19 17:09 06/29/19 20:19 06/30/19 00:24 Bedside Glucose 139 90 79 75 Test 06/30/19 04:00 06/30/19 05:25 06/30/19 05:31 06/30/19 08:22 White Blood Count 19.8 H Red Blood Count 3.14 L Hemoglobin 9.3 L Hematocrit 28.8 L Mean Corpuscular 91.7 Volume Mean Corpuscular 29.6 Hemoglobin Mean Corpuscular 32.3 Hemoglobin Concent Red Cell 15.1 H Distribution Width Platelet Count 132 L Mean Platelet 11.5 H Volume Immature 0.800 H Granulocytes % Neutrophils % 92.0 H Lymphocytes % 2.5 L Monocytes % 3.8 Eosinophils % 0.8 Basophils % 0.1 Nucleated Red Blood 0.0 Cells % Immature 0.160 H Granulocytes # Neutrophils # 18.2 H Lymphocytes # 0.5 L Monocytes # 0.8 Eosinophils # 0.2 Basophils # 0.0 Nucleated Red Blood 0.0 Cells # Sodium Level 146 H Potassium Level 3.2 L Chloride Level 102 Carbon Dioxide 37 H Level Anion Gap 7 Blood Urea Nitrogen 121 H Creatinine 1.18 H Est Glomerular Filtrat Rate mL/min Glucose Level 63 #L Calcium Level 8.3 L Phosphorus Level 4.4 Magnesium Level 2.5 Lab Scanned Report BLOOD TRANSFUSION Bedside Glucose 60 L 111 Subjective 24 Hr Interval Summary Free Text/Dictation Patient remains intubated and sedated. still very edematous. Discussed with son, Osiel, discussion about goals of care and will be in tomorrow am to discuss. Exam/Review of Systems Exam Vitals Vital Signs Date Temp Pulse Resp B/P (MAP) Pulse Ox O2 O2 Flow FiO2 Time Delivery Rate 06/30/19 79 26 125/76 100 Mechanical 09:00 (92) Ventilator 06/30/19 97.7 08:00 06/30/19 100 05:29 Intake and Output 06/29/19 06/29/19 06/30/19 1515:00 23:00 07:00 IntakeIntake Total 269.16 ml 229.06 ml 242.4 ml OutputOutput Total 1075 ml 1050 ml 780 ml BalanceBalance -805.84 ml -820.94 ml -537.6 ml Exam General: Patient is intubated, sedated Neck: Supple, edematous Respiratory: Coarse to auscultation bilaterally. no wheezing Cardiovascular: Regular rate and rhythm, no obvious murmurs Gastrointestinal: soft, protuberant, non-tender to palpation, bowel sounds heard. PEG in place Neurological: Moves all extremities spontaneously to noxious stimuli Skin: No new skin lesions Ext: gross anasarca UE and LE b/l Results Results 24hrs Laboratory Tests Test 06/29/19 12:10 06/29/19 17:09 06/29/19 20:19 06/30/19 00:24 Bedside Glucose 139 90 79 75 Test 06/30/19 04:00 06/30/19 05:25 06/30/19 05:31 06/30/19 08:22 White Blood Count 19.8 H Red Blood Count 3.14 L Hemoglobin 9.3 L Hematocrit 28.8 L Mean Corpuscular 91.7 Volume Mean Corpuscular 29.6 Hemoglobin Mean Corpuscular 32.3 Hemoglobin Concent Red Cell 15.1 H Distribution Width Platelet Count 132 L Mean Platelet 11.5 H Volume Immature 0.800 H Granulocytes % Neutrophils % 92.0 H Lymphocytes % 2.5 L Monocytes % 3.8 Eosinophils % 0.8 Basophils % 0.1 Nucleated Red Blood 0.0 Cells % Immature 0.160 H Granulocytes # Neutrophils # 18.2 H Lymphocytes # 0.5 L Monocytes # 0.8 Eosinophils # 0.2 Basophils # 0.0 Nucleated Red Blood 0.0 Cells # Sodium Level 146 H Potassium Level 3.2 L Chloride Level 102 Carbon Dioxide 37 H Level Anion Gap 7 Blood Urea Nitrogen 121 H Creatinine 1.18 H Est Glomerular Filtrat Rate mL/min Glucose Level 63 #L Calcium Level 8.3 L Phosphorus Level 4.4 Magnesium Level 2.5 Lab Scanned Report BLOOD TRANSFUSION Bedside Glucose 60 L 111 Medications Medication Current Medications IV Flush (NS 3 ml) 3 ml PER PROTOCOL IV ; Start 06/10/19 at 12:00 Ondansetron HCl (Zofran Inj) 4 mg Q6H PRN IV NAUSEA/VOMITING; Start 06/10/19 at 12:00 Acetaminophen (Tylenol Tab) 650 mg Q6H PRN PO .PAIN 1-3 OR TEMP Last administered on 06/13/19 15:52; Admin Dose 650 MG; Start 06/10/19 at 12:00 Acetaminophen/ Hydrocodone Bitart ([place] (5/325)) 1 tab Q6H PRN PO .PAIN 4-6; Start 06/10/19 at 12:00 Morphine Sulfate (morphine) 2 mg Q4H PRN IV .PAIN 7-10 Last administered on 06/15/19 16:57; Admin Dose 2 MG; Start 06/10/19 at 12:00 Amiodarone HCl (Cordarone) 100 mg DAILY GTB Last administered on 06/30/19 08:33; Admin Dose 100 MG; Start 06/11/19 at 09:00 Atorvastatin Calcium (Lipitor) 20 mg QHS GTB Last administered on 06/29/19 20:20; Admin Dose 20 MG; Start 06/10/19 at 21:00 Levetiracetam (Keppra Liquid) 500 mg BID GTB Last administered on 06/30/19 08:32; Admin Dose 500 MG; Start 06/10/19 at 21:00 Olanzapine (Zyprexa) 5 mg DAILY GTB Last administered on 06/30/19 08:32; Admin Dose 5 MG; Start 06/11/19 at 09:00 Polyethylene Glycol (Miralax) 17 gm DAILY GTB Last administered on 06/30/19 08:32; Admin Dose 17 GM; Start 06/11/19 at 09:00 Miscellaneous Information 1 ea NOTE XX ; Start 06/10/19 at 14:00 Glucose (Glutose) 15 gm Q15M PRN PO DECREASED GLUCOSE; Start 06/10/19 at 14:00 Glucose (Glutose) 22.5 gm Q15M PRN PO DECREASED GLUCOSE; Start 06/10/19 at 14:00 Dextrose (D50w Syringe) 25 ml Q15M PRN IV DECREASED GLUCOSE; Start 06/10/19 at 14:00 Dextrose (D50w Syringe) 50 ml Q15M PRN IV DECREASED GLUCOSE Last administered on 06/30/19 06:10; Admin Dose 50 ML; Start 06/10/19 at 14:00 Glucagon (Glucagen) 1 mg Q15M PRN IM DECREASED GLUCOSE; Start 06/10/19 at 14:00 Glucose (Glutose) 15 gm Q15M PRN BUCCAL DECREASED GLUCOSE; Start 06/10/19 at 14:00 IV Flush (NS 10 ml) 10 ml [id number] PRN IV Line Patency; Start 06/10/19 at 16:00 Fluvoxamine Maleate (Fluvoxamine Maleate) 25 mg DAILY GTB Last administered on 06/30/19 08:32; Admin Dose 25 MG; Start 06/11/19 at 09:00 Aspirin (Aspirin) 81 mg DAILY PEG Last administered on 06/30/19 08:32; Admin Dose 81 MG; Start 06/11/19 at 09:00 Heparin Sodium (Porcine) (Heparin (5000 Units/1ml)) 5,000 unit Q8 SC Last administered on 06/14/19 06:01; Admin Dose 5,000 UNIT; Start 06/11/19 at 14:00; Status Hold Ipratropium [place] (Atrovent 0.02% (Neb)) 0.5 mg Q4H RESP THERAPY PRN HHN SHORTNESS OF BREATH; Start 06/12/19 at 10:00 Levalbuterol (Xopenex Neb) 1.25 mg Q4H RESP THERAPY PRN HHN shortness of breath; Start 06/12/19 at 10:00 Fentanyl 100 ml @ 2.5 mls/hr TITRATE IV Last administered on 06/29/19 21:55; Admin Dose 10 MLS/HR; Start 06/12/19 at 10:00 Levalbuterol (Xopenex Hfa) 4 puff Q6H RESP THERAPY INH Last administered on 06/30/19 07:37; Admin Dose 4 PUFF; Start 06/12/19 at 20:00 Ipratropium [place] (Atrovent Hfa) 4 puff Q6H RESP THERAPY INH Last administered on 06/30/19 07:37; Admin Dose 4 PUFF; Start 06/12/19 at 20:00 Docusate Sodium (Colace Liquid Cup) 100 mg BID GTB Last administered on 06/30/19 08:32; Admin Dose 100 MG; Start 06/14/19 at 12:30 Insulin Aspart (Novolog Insulin Pen) NOVOLOG *MILD* ALGORI... Q4 SC Last administered on 06/29/19 09:22; Admin Dose 1 UNIT; Start 06/16/19 at 21:00 Insulin Glargine (Lantus) 15 units DAILY@0800 SC Last administered on 06/30/19 08:41; Admin Dose 15 UNITS; Start 06/18/19 at 08:00 Propofol 100 ml @ 1.656 mls/ hr Q12H IV Last administered on 06/30/19 06:18; Admin Dose 13.248 MLS/HR; Start 06/18/19 at 10:00 Lactobacillus Acidophilus/ Rhamnosus (Culturelle) 1 cap TID PO Last administered on 06/30/19 08:32; Admin Dose 1 CAP; Start 06/18/19 at 21:00 Eye Lubricant (Artificial Tears Oph) 2 drop QID BOTH EYES Last administered on 06/30/19 08:35; Admin Dose 2 DROP; Start 06/23/19 at 09:30 Eye Lubricant ([place] Oint) 1 applic Q6 BOTH EYES Last administered on 06/30/19 05:32; Admin Dose 1 APPLIC; Start 06/23/19 at 12:00 Potassium Chloride (Potassium Chloride Pwd/Soln) 20 meq PER PROTOCOL PRN GTB POTASSIUM REPLACEMENT PROTOCOL Last administered on 06/25/19 09:35; Admin Dose 20 MEQ; Start 06/21/19 at 09:30 Potassium Chloride (Potassium Chloride Pwd/Soln) 30 meq PER PROTOCOL PRN GTB POTASSIUM REPLACEMENT PROTOCOL Last administered on 06/27/19 21:06; Admin Dose 30 MEQ; Start 06/21/19 at 09:30 Potassium Chloride (Potassium Chloride Pwd/Soln) 40 meq PER PROTOCOL PRN GTB POTASSIUM REPLACEMENT PROTOCOL Last administered on 06/30/19 08:33; Admin Dose 40 MEQ; Start 06/21/19 at 09:30 Hydrocortisone (Solu-Cortef) 20 mg Q8 IV Last administered on 06/30/19 06:10; Admin Dose 20 MG; Start 06/27/19 at 14:00 SHENG DONNELLY MD Jun 30, 2019 09:52
[2019-06-30] MEDS: FENTAnyl (DRIP) 1000 mcg/100mL 100 ML IV SCH ×2 (11:09→21:05)
--- NOTE | 2019-06-30 11:10 | CONS ---
Assessment/Plan Assessment/Plan Assessment/Plan (Daily) 1. acute Hypernatremia due to severe dehydration -resolved 2. acute Hyperkalemia due to FLOYD - Resolved 3. acute kidney injury on CKD III due to ATN from sepsis and Prerenal azotemia 4 . Septic shock due to multifocal PNA and UTI 5. Acute hypoxic respiratory failure due to PNA and Septic shock - Failed BIPAP- Intubated on 06/12/19 , 6. H/O severe dementia 7. H/O HTN 8. H/O HL 9. SNF resident 10. acute on chronic encephalopathy 11 h/o Dysphagia S/p G tube placement 12. Hypocalcemia 13. UTI with Urine cx growing ESBL Klebsiella Plan: BUN has been rising to 121, Cr 1.18 K has been low, K replacement protocol , bumex has been stopped and Solu-Cortef decreased to 20 mg Q 8 hr- DNR code status - Poor candidate for dialysis due to age, comorbidiites, consider palli ative care follow up and comfort care off all abx now, ID following, plan is to repeat Cultures Ventilator Management as per pulmonary -- not doing well, still requiring high PEEP will follow up Consultation Date/Type/Reason Admit Date/Time Jun 10, 2019 at 12:38 Initial Consult Date 06/11/19 Type of Consult NEPHROLOGY Requesting Provider: MALINI GOMEZ Date/Time of Note DATE: 06/30/19 TIME: 11:09 Exam/Review of Systems Exam Vitals Vital Signs Date Temp Pulse Resp B/P (MAP) Pulse Ox O2 O2 Flow FiO2 Time Delivery Rate 06/30/19 79 26 125/76 100 Mechanical 09:00 (92) Ventilator 06/30/19 97.7 08:00 06/30/19 100 05:29 Intake and Output 06/29/19 06/29/19 06/30/19 1515:00 23:00 07:00 IntakeIntake Total 269.16 ml 229.06 ml 242.4 ml OutputOutput Total 1075 ml 1050 ml 780 ml BalanceBalance -805.84 ml -820.94 ml -537.6 ml Exam General: intubated on ventilator HEENT: ET tube in place, NG tube Neck: Supple, + JVD , no LAD Respiratory: Bilateral coarse BS+, basilar wheezing Cardiovascular: S1 S2 tachycardia, no murmur Gastrointestinal: soft, NT, ND, Thin abdomen, BS+, + PEG tube in place Neurological: sedated intubated on ventilator Results Result Diagram: 06/30/19 0400 06/30/19 0400 Results 24hrs Laboratory Tests Test 06/29/19 12:10 06/29/19 17:09 06/29/19 20:19 06/30/19 00:24 Bedside Glucose 139 90 79 75 Test 06/30/19 04:00 06/30/19 05:25 06/30/19 05:31 06/30/19 08:22 White Blood Count 19.8 H Red Blood Count 3.14 L Hemoglobin 9.3 L Hematocrit 28.8 L Mean Corpuscular 91.7 Volume Mean Corpuscular 29.6 Hemoglobin Mean Corpuscular 32.3 Hemoglobin Concent Red Cell 15.1 H Distribution Width Platelet Count 132 L Mean Platelet 11.5 H Volume Immature 0.800 H Granulocytes % Neutrophils % 92.0 H Lymphocytes % 2.5 L Monocytes % 3.8 Eosinophils % 0.8 Basophils % 0.1 Nucleated Red Blood 0.0 Cells % Immature 0.160 H Granulocytes # Neutrophils # 18.2 H Lymphocytes # 0.5 L Monocytes # 0.8 Eosinophils # 0.2 Basophils # 0.0 Nucleated Red Blood 0.0 Cells # Sodium Level 146 H Potassium Level 3.2 L Chloride Level 102 Carbon Dioxide 37 H Level Anion Gap 7 Blood Urea Nitrogen 121 H Creatinine 1.18 H Est Glomerular Filtrat Rate mL/min Glucose Level 63 #L Calcium Level 8.3 L Phosphorus Level 4.4 Magnesium Level 2.5 Lab Scanned Report BLOOD TRANSFUSION Bedside Glucose 60 L 111 Medications Medication Current Medications IV Flush (NS 3 ml) 3 ml PER PROTOCOL IV ; Start 06/10/19 at 12:00 Ondansetron HCl (Zofran Inj) 4 mg Q6H PRN IV NAUSEA/VOMITING; Start 06/10/19 at 12:00 Acetaminophen (Tylenol Tab) 650 mg Q6H PRN PO .PAIN 1-3 OR TEMP Last administered on 06/13/19at 15:52; Admin Dose 650 MG; Start 06/10/19 at 12:00 Acetaminophen/ Hydrocodone Bitart ([place] (5/325)) 1 tab Q6H PRN PO .PAIN 4-6; Start 06/10/19 at 12:00 Morphine Sulfate (morphine) 2 mg Q4H PRN IV .PAIN 7-10 Last administered on 06/15/19 16:57; Admin Dose 2 MG; Start 06/10/19 at 12:00 Amiodarone HCl (Cordarone) 100 mg DAILY GTB Last administered on 06/30/19 08:33; Admin Dose 100 MG; Start 06/11/19 at 09:00 Atorvastatin Calcium (Lipitor) 20 mg QHS GTB Last administered on 06/29/19 20:20; Admin Dose 20 MG; Start 06/10/19 at 21:00 Levetiracetam (Keppra Liquid) 500 mg BID GTB Last administered on 06/30/19 08:32; Admin Dose 500 MG; Start 06/10/19 at 21:00 Olanzapine (Zyprexa) 5 mg DAILY GTB Last administered on 06/30/19 08:32; Admin Dose 5 MG; Start 06/11/19 at 09:00 Polyethylene Glycol (Miralax) 17 gm DAILY GTB Last administered on 06/30/19 08:32; Admin Dose 17 GM; Start 06/11/19 at 09:00 Miscellaneous Information 1 ea NOTE XX ; Start 06/10/19 at 14:00 Glucose (Glutose) 15 gm Q15M PRN PO DECREASED GLUCOSE; Start 06/10/19 at 14:00 Glucose (Glutose) 22.5 gm Q15M PRN PO DECREASED GLUCOSE; Start 06/10/19 at 14:00 Dextrose (D50w Syringe) 25 ml Q15M PRN IV DECREASED GLUCOSE; Start 06/10/19 at 14:00 Dextrose (D50w Syringe) 50 ml Q15M PRN IV DECREASED GLUCOSE Last administered on 06/30/19at 06:10; Admin Dose 50 ML; Start 06/10/19 at 14:00 Glucagon (Glucagen) 1 mg Q15M PRN IM DECREASED GLUCOSE; Start 06/10/19 at 14:00 Glucose (Glutose) 15 gm Q15M PRN BUCCAL DECREASED GLUCOSE; Start 06/10/19 at 14:00 IV Flush (NS 10 ml) 10 ml [id number] PRN IV Line Patency; Start 06/10/19 at 16:00 Fluvoxamine Maleate (Fluvoxamine Maleate) 25 mg DAILY GTB Last administered on 06/30/19 08:32; Admin Dose 25 MG; Start 06/11/19 at 09:00 Aspirin (Aspirin) 81 mg DAILY PEG Last administered on 06/30/19 08:32; Admin Dose 81 MG; Start 06/11/19 at 09:00 Heparin Sodium (Porcine) (Heparin (5000 Units/1ml)) 5,000 unit Q8 SC Last administered on 06/14/19 06:01; Admin Dose 5,000 UNIT; Start 06/11/19 at 14:00; Status Hold Ipratropium [place] (Atrovent 0.02% (Neb)) 0.5 mg Q4H RESP THERAPY PRN HHN SH ORTNESS OF BREATH; Start 06/12/19 at 10:00 Levalbuterol (Xopenex Neb) 1.25 mg Q4H RESP THERAPY PRN HHN shortness of breath; Start 06/12/19 at 10:00 Fentanyl 100 ml @ 2.5 mls/hr TITRATE IV Last administered on 06/29/19 21:55; Admin Dose 10 MLS/HR; Start 06/12/19 at 10:00 Levalbuterol (Xopenex Hfa) 4 puff Q6H RESP THERAPY INH Last administered on 06/30/19 07:37; Admin Dose 4 PUFF; Start 06/12/19 at 20:00 Ipratropium [place] (Atrovent Hfa) 4 puff Q6H RESP THERAPY INH Last administered on 06/30/19 07:37; Admin Dose 4 PUFF; Start 06/12/19 at 20:00 Docusate Sodium (Colace Liquid Cup) 100 mg BID GTB Last administered on 06/30/19 08:32; Admin Dose 100 MG; Start 06/14/19 at 12:30 Insulin Aspart (Novolog Insulin Pen) NOVOLOG *MILD* ALGORI... Q4 SC Last administered on 06/29/19 09:22; Admin Dose 1 UNIT; Start 06/16/19 at 21:00 Insulin Glargine (Lantus) 15 units DAILY@0800 SC Last administered on 06/30/19 08:41; Admin Dose 15 UNITS; Start 06/18/19 at 08:00 Propofol 100 ml @ 1.656 mls/ hr Q12H IV Last administered on 06/30/19 06:18; Admin Dose 13.248 MLS/HR; Start 06/18/19 at 10:00 Lactobacillus Acidophilus/ Rhamnosus (Culturelle) 1 cap TID PO Last administered on 06/30/19 08:32; Admin Dose 1 CAP; Start 06/18/19 at 21:00 Eye Lubricant (Artificial Tears Oph) 2 drop QID BOTH EYES Last administered on 06/30/19 08:35; Admin Dose 2 DROP; Start 06/23/19 at 09:30 Eye Lubricant ([place]wa Oint) 1 applic Q6 BOTH EYES Last administered on 06/30/19 05:32; Admin Dose 1 APPLIC; Start 06/23/19 at 12:00 Potassium Chloride (Potassium Chloride Pwd/Soln) 20 meq PER PROTOCOL PRN GTB POTASSIUM REPLACEMENT PROTOCOL Last administered on 06/25/19 09:35; Admin Dose 20 MEQ; Start 06/21/19 at 09:30 Potassium Chloride (Potassium Chloride Pwd/Soln) 30 meq PER PROTOCOL PRN GTB POTASSIUM REPLACEMENT PROTOCOL Last administered on 06/27/19 21:06; Admin Dose 30 MEQ; Start 06/21/19 at 09:30 Potassium Chloride (Potassium Chloride Pwd/Soln) 40 meq PER PROTOCOL PRN GTB POTASSIUM REPLACEMENT PROTOCOL Last administered on 06/30/19 08:33; Admin Dose 40 MEQ; Start 06/21/19 at 09:30 Hydrocortisone (Solu-Cortef) 20 mg Q8 IV Last administered on 06/30/19 06:10; Admin Dose 20 MG; Start 06/27/19 at 14:00 GERMAN FELIX MD Jun 30, 2019 11:10
--- NOTE | 2019-06-30 11:56 | PN ---
Date/Time of Note Date/Time of Note DATE: 06/30/19 TIME: 11:48 Assessment/Plan VTE Prophylaxis Risk score (from Ns)>0 risk: 9 SCD applied (from Ns): No SCD contraindicated: other (edema) Pharmacological prophylaxis: NA/contraindicated Pharm contraindication: renal impairment Lines/Catheters IV [facility] Type (from [facility]): PICC Line Central line still needed: Yes (meds) Urinary Cath still in place: Yes Reason Cath still needed: other (indicate) (monitor out put) Assessment/Plan Hospital Course Assessment: PEG tube malfunction, clogged- de-clogged Dysphagia, enteral feeding dependent Acute hypoxic respiratory failure Multifocal pneumonia Sepsis Dementia Anasarca Plan: TF on hold for large residuals After speaking to staff- family leaning towards comfort care- Patient son Osiel spoke in detail with Dr. Gonzalez- awaiting his decision No plan for g-tube exchange as this time. Further recommendations based on clinical course Patient seen in collaboration with Dr. Montenegro Subjective: Course reviewed with nursing staff Patient interviewed and examined All labs, imaging and other results reviewed The patient remains in ICU- will over all poor prognosis. G-tube in now working- however on hold for large residuals at this time. Await family decision on possible comfort care, in not will add Reglan to regimen. Constitutional: non-verbal, other (intubated, unresponsive) Psych: other (unresponsive) Head: normocephalic, atraumatic Eyes: nl conjunctiva, nl lids ENMT: nl external ears & nose, nl lips & teeth, nl nasal mucosa & septum Neck: supple Respiratory: normal air movement Cardiovascular: regular rate and rhythm Gastrointestinal: soft, distended Musculoskeletal: nl extremities to inspection Extremities: normal pulses, edema (diffuse anasarca) Neurological: lethargic, unresponsive Skin: other (diffuse anasarca) Result Diagram: 06/30/19 0400 06/30/19 0400 Results 24hrs Laboratory Tests Test 06/29/19 12:10 06/29/19 17:09 06/29/19 20:19 06/30/19 00:24 Bedside Glucose 139 90 79 75 Test 06/30/19 04:00 06/30/19 05:25 06/30/19 05:31 06/30/19 08:22 White Blood Count 19.8 H Red Blood Count 3.14 L Hemoglobin 9.3 L Hematocrit 28.8 L Mean Corpuscular 91.7 Volume Mean Corpuscular 29.6 Hemoglobin Mean Corpuscular 32.3 Hemoglobin Concent Red Cell 15.1 H Distribution Width Platelet Count 132 L Mean Platelet 11.5 H Volume Immature 0.800 H Granulocytes % Neutrophils % 92.0 H Lymphocytes % 2.5 L Monocytes % 3.8 Eosinophils % 0.8 Basophils % 0.1 Nucleated Red Blood 0.0 Cells % Immature 0.160 H Granulocytes # Neutrophils # 18.2 H Lymphocytes # 0.5 L Monocytes # 0.8 Eosinophils # 0.2 Basophils # 0.0 Nucleated Red Blood 0.0 Cells # Sodium Level 146 H Potassium Level 3.2 L Chloride Level 102 Carbon Dioxide 37 H Level Anion Gap 7 Blood Urea Nitrogen 121 H Creatinine 1.18 H Est Glomerular Filtrat Rate mL/min Glucose Level 63 #L Calcium Level 8.3 L Phosphorus Level 4.4 Magnesium Level 2.5 Lab Scanned Report BLOOD TRANSFUSION Bedside Glucose 60 L 111 Exam/Review of Systems Exam Vitals Vital Signs Date Temp Pulse Resp B/P (MAP) Pulse Ox O2 O2 Flow FiO2 Time Delivery Rate 06/30/19 63 26 100 100 11:10 06/30/19 109/69 Mechanical 11:00 (82) Ventilator 06/30/19 97.7 08:00 Intake and Output 06/29/19 06/29/19 06/30/19 1515:00 23:00 07:00 IntakeIntake Total 269.16 ml 229.06 ml 252.4 ml OutputOutput Total 1075 ml 1050 ml 780 ml BalanceBalance -805.84 ml -820.94 ml -527.6 ml Results Results 24hrs Laboratory Tests Test 06/29/19 12:10 06/29/19 17:09 06/29/19 20:19 06/30/19 00:24 Bedside Glucose 139 90 79 75 Test 06/30/19 04:00 06/30/19 05:25 06/30/19 05:31 06/30/19 08:22 White Blood Count 19.8 H Red Blood Count 3.14 L Hemoglobin 9.3 L Hematocrit 28.8 L Mean Corpuscular 91.7 Volume Mean Corpuscular 29.6 Hemoglobin Mean Corpuscular 32.3 Hemoglobin Concent Red Cell 15.1 H Distribution Width Platelet Count 132 L Mean Platelet 11.5 H Volume Immature 0.800 H Granulocytes % Neutrophils % 92.0 H Lymphocytes % 2.5 L Monocytes % 3.8 Eosinophils % 0.8 Basophils % 0.1 Nucleated Red Blood 0.0 Cells % Immature 0.160 H Granulocytes # Neutrophils # 18.2 H Lymphocytes # 0.5 L Monocytes # 0.8 Eosinophils # 0.2 Basophils # 0.0 Nucleated Red Blood 0.0 Cells # Sodium Level 146 H Potassium Level 3.2 L Chloride Level 102 Carbon Dioxide 37 H Level Anion Gap 7 Blood Urea Nitrogen 121 H Creatinine 1.18 H Est Glomerular Filtrat Rate mL/min Glucose Level 63 #L Calcium Level 8.3 L Phosphorus Level 4.4 Magnesium Level 2.5 Lab Scanned Report BLOOD TRANSFUSION Bedside Glucose 60 L 111 Medications Medication Current Medications IV Flush (NS 3 ml) 3 ml PER PROTOCOL IV ; Start 06/10/19 at 12:00 Ondansetron HCl (Zofran Inj) 4 mg Q6H PRN IV NAUSEA/VOMITING; Start 06/10/19 at 12:00 Acetaminophen (Tylenol Tab) 650 mg Q6H PRN PO .PAIN 1-3 OR TEMP Last administered on 06/13/19 15:52; Admin Dose 650 MG; Start 06/10/19 at 12:00 Acetaminophen/ Hydrocodone Bitart ([place] (5/325)) 1 tab Q6H PRN PO .PAIN 4-6; Start 06/10/19 at 12:00 Morphine Sulfate (morphine) 2 mg Q4H PRN IV .PAIN 7-10 Last administered on 06/15/19 16:57; Admin Dose 2 MG; Start 06/10/19 at 12:00 Amiodarone HCl (Cordarone) 100 mg DAILY GTB Last administered on 06/30/19 08:33; Admin Dose 100 MG; Start 06/11/19 at 09:00 Atorvastatin Calcium (Lipitor) 20 mg QHS GTB Last administered on 06/29/19 20:20; Admin Dose 20 MG; Start 06/10/19 at 21:00 Levetiracetam (Keppra Liquid) 500 mg BID GTB Last administered on 06/30/19 08:32; Admin Dose 500 MG; Start 06/10/19 at 21:00 Olanzapine (Zyprexa) 5 mg DAILY GTB Last administered on 06/30/19 08:32; Admin Dose 5 MG; Start 06/11/19 at 09:00 Polyethylene Glycol (Miralax) 17 gm DAILY GTB Last administered on 06/30/19 08:32; Admin Dose 17 GM; Start 06/11/19 at 09:00 Miscellaneous Information 1 ea NOTE XX ; Start 06/10/19 at 14:00 Glucose (Glutose) 15 gm Q15M PRN PO DECREASED GLUCOSE; Start 06/10/19 at 14:00 Glucose (Glutose) 22.5 gm Q15M PRN PO DECREASED GLUCOSE; Start 06/10/19 at 14:00 Dextrose (D50w Syringe) 25 ml Q15M PRN IV DECREASED GLUCOSE; Start 06/10/19 at 14:00 Dextrose (D50w Syringe) 50 ml Q15M PRN IV DECREASED GLUCOSE Last administered on 06/30/19 06:10; Admin Dose 50 ML; Start 06/10/19 at 14:00 Glucagon (Glucagen) 1 mg Q15M PRN IM DECREASED GLUCOSE; Start 06/10/19 at 14:00 Glucose (Glutose) 15 gm Q15M PRN BUCCAL DECREASED GLUCOSE; Start 06/10/19 at 14:00 IV Flush (NS 10 ml) 10 ml [id number] PRN IV Line Patency; Start 06/10/19 at 16:00 Fluvoxamine Maleate (Fluvoxamine Maleate) 25 mg DAILY GTB Last administered on 06/30/19 08:32; Admin Dose 25 MG; Start 06/11/19 at 09:00 Aspirin (Aspirin) 81 mg DAILY PEG Last administered on 06/30/19 08:32; Admin Dose 81 MG; Start 06/11/19 at 09:00 Heparin Sodium (Porcine) (Heparin (5000 Units/1ml)) 5,000 unit Q8 SC Last administered on 06/14/19 06:01; Admin Dose 5,000 UNIT; Start 06/11/19 at 14:00; Status Hold Ipratropium [place] (Atrovent 0.02% (Neb)) 0.5 mg Q4H RESP THERAPY PRN HHN SHORTNESS OF BREATH; Start 06/12/19 at 10:00 Levalbuterol (Xopenex Neb) 1.25 mg Q4H RESP THERAPY PRN HHN shortness of breath; Start 06/12/19 at 10:00 Fentanyl 100 ml @ 2.5 mls/hr TITRATE IV Last administered on 06/30/19 11:09; Admin Dose 10 MLS/HR; Start 06/12/19 at 10:00 Levalbuterol (Xopenex Hfa) 4 puff Q6H RESP THERAPY INH Last administered on 06/30/19 07:37; Admin Dose 4 PUFF; Start 06/12/19 at 20:00 Ipratropium [place] (Atrovent Hfa) 4 puff Q6H RESP THERAPY INH Last administered on 06/30/19 07:37; Admin Dose 4 PUFF; Start 06/12/19 at 20:00 Docusate Sodium (Colace Liquid Cup) 100 mg BID GTB Last administered on 06/30/19 08:32; Admin Dose 100 MG; Start 06/14/19 at 12:30 Insulin Aspart (Novolog Insulin Pen) NOVOLOG *MILD* ALGORI... Q4 SC Last administered on 06/29/19 09:22; Admin Dose 1 UNIT; Start 06/16/19 at 21:00 Insulin Glargine (Lantus) 15 units DAILY@0800 SC Last administered on 06/30/19 08:41; Admin Dose 15 UNITS; Start 06/18/19 at 08:00 Propofol 100 ml @ 1.656 mls/ hr Q12H IV Last administered on 06/30/19 06:18; Admin Dose 13.248 MLS/HR; Start 06/18/19 at 10:00 Lactobacillus Acidophilus/ Rhamnosus (Culturelle) 1 cap TID PO Last administered on 06/30/19 08:32; Admin Dose 1 CAP; Start 06/18/19 at 21:00 Eye Lubricant (Artificial Tears Oph) 2 drop QID BOTH EYES Last administered on 06/30/19 08:35; Admin Dose 2 DROP; Start 06/23/19 at 09:30 Eye Lubricant (Akwa Oint) 1 applic Q6 BOTH EYES Last administered on 06/30/19 05:32; Admin Dose 1 APPLIC; Start 06/23/19 at 12:00 Potassium Chloride (Potassium Chloride Pwd/Soln) 20 meq PER PROTOCOL PRN GTB POTASSIUM REPLACEMENT PROTOCOL Last administered on 06/25/19 09:35; Admin Dose 20 MEQ; Start 06/21/19 at 09:30 Potassium Chloride (Potassium Chloride Pwd/Soln) 30 meq PER PROTOCOL PRN GTB POTASSIUM REPLACEMENT PROTOCOL Last administered on 06/27/19 21:06; Admin Dose 30 MEQ; Start 06/21/19 at 09:30 Potassium Chloride (Potassium Chloride Pwd/Soln) 40 meq PER PROTOCOL PRN GTB POTASSIUM REPLACEMENT PROTOCOL Last administered on 06/30/19 08:33; Admin Dose 40 MEQ; Start 06/21/19 at 09:30 Hydrocortisone (Solu-Cortef) 20 mg Q8 IV Last administered on 06/30/19 06:10; Admin Dose 20 MG; Start 06/27/19 at 14:00 OMID JENNINGS Jun 30, 2019 11:55
--- NOTE | 2019-06-30 12:28 | CONS ---
Assessment/Plan Assessment/Plan Hospital Course (Demo Recall) SUBJECTIVE: No acute changes overnight. Patient remains on vent support, tube feeding on hold secondary to high residuals, no fevers. Solu-Cortef decreased to 20 mg IV every 8 hours. Chest x-ray 2 days ago revealed no significant interval change. WBC 19.8 H&H 9.3 and 28.8 platelets 132 BUN 121 creatinine 1.18 INDWELLINGS: Endotracheal tube, PEG, Dial, PICC line. PHYSICAL EXAMINATION: GENERAL: Chronically ill-appearing, elderly woman in no distress. HEENT: Head atraumatic, normocephalic. NECK: Supple. Trachea midline. CHEST: Rise symmetrical. Breath sounds diminished to bases. HEART: S1, S2. ABDOMEN: Distended. Bowel tones are hypoactive. EXTREMITIES: Without cyanosis. SKIN: Patient has ongoing anasarca. ASSESSMENT: 1. Status post septic shock. 2. Status post pneumonia and urinary tract infections. 3. Acute respiratory distress syndrome. 4. Atrial fibrillation. 5. Non-ST elevation myocardial infarction. PLAN: Clinically unchanged, we are going to repeat cultures, continue present care, vent per pulmonary Consultation Date/Type/Reason Admit Date/Time Jun 10, 2019 at 12:38 Initial Consult Date 06/11/19 Type of Consult id Requesting Provider: MALINI GOMEZ Date/Time of Note DATE: 06/30/19 TIME: 12:27 Exam/Review of Systems Exam Vitals Vital Signs Date Temp Pulse Resp B/P (MAP) Pulse Ox O2 O2 Flow FiO2 Time Delivery Rate 06/30/19 63 26 100 100 11:10 06/30/19 109/69 Mechanical 11:00 (82) Ventilator 06/30/19 97.7 08:00 Intake and Output 06/29/19 06/29/19 06/30/19 1515:00 23:00 07:00 IntakeIntake Total 269.16 ml 229.06 ml 252.4 ml OutputOutput Total 1075 ml 1050 ml 780 ml BalanceBalance -805.84 ml -820.94 ml -527.6 ml Results Result Diagram: 06/30/19 0400 06/30/19 0400 Results 24hrs Laboratory Tests Test 06/29/19 17:09 06/29/19 20:19 06/30/19 00:24 06/30/19 04:00 Bedside Glucose 90 79 75 White Blood Count 19.8 H Red Blood Count 3.14 L Hemoglobin 9.3 L Hematocrit 28.8 L Mean Corpuscular 91.7 Volume Mean Corpuscular 29.6 Hemoglobin Mean Corpuscular 32.3 Hemoglobin Concent Red Cell 15.1 H Distribution Width Platelet Count 132 L Mean Platelet 11.5 H Volume Immature 0.800 H Granulocytes % Neutrophils % 92.0 H Lymphocytes % 2.5 L Monocytes % 3.8 Eosinophils % 0.8 Basophils % 0.1 Nucleated Red Blood 0.0 Cells % Immature 0.160 H Granulocytes # Neutrophils # 18.2 H Lymphocytes # 0.5 L Monocytes # 0.8 Eosinophils # 0.2 Basophils # 0.0 Nucleated Red Blood 0.0 Cells # Sodium Level 146 H Potassium Level 3.2 L Chloride Level 102 Carbon Dioxide 37 H Level Anion Gap 7 Blood Urea Nitrogen 121 H Creatinine 1.18 H Est Glomerular Filtrat Rate mL/min Glucose Level 63 #L Calcium Level 8.3 L Phosphorus Level 4.4 Magnesium Level 2.5 Test 06/30/19 05:25 06/30/19 05:31 06/30/19 08:22 Lab Scanned Report BLOOD TRANSFUSION Bedside Glucose 60 L 111 Medications Medication Current Medications IV Flush (NS 3 ml) 3 ml PER PROTOCOL IV ; Start 06/10/19 at 12:00 Ondansetron HCl (Zofran Inj) 4 mg Q6H PRN IV NAUSEA/VOMITING; Start 06/10/19 at 12:00 Acetaminophen (Tylenol Tab) 650 mg Q6H PRN PO .PAIN 1-3 OR TEMP Last administered on 06/13/19at 15:52; Admin Dose 650 MG; Start 06/10/19 at 12:00 Acetaminophen/ Hydrocodone Bitart ([place] (5/325)) 1 tab Q6H PRN PO .PAIN 4-6; Start 06/10/19 at 12:00 Morphine Sulfate (morphine) 2 mg Q4H PRN IV .PAIN 7-10 Last administered on 06/15/19at 16:57; Admin Dose 2 MG; Start 06/10/19 at 12:00 Amiodarone HCl (Cordarone) 100 mg DAILY GTB Last administered on 06/30/19at 08:33; Admin Dose 100 MG; Start 06/11/19 at 09:00 Atorvastatin Calcium (Lipitor) 20 mg QHS GTB Last administered on 06/29/19 20:20; Admin Dose 20 MG; Start 06/10/19 at 21:00 Levetiracetam (Keppra Liquid) 500 mg BID GTB Last administered on 06/30/19 08:32; Admin Dose 500 MG; Start 06/10/19 at 21:00 Olanzapine (Zyprexa) 5 mg DAILY GTB Last administered on 06/30/19 08:32; Admin Dose 5 MG; Start 06/11/19 at 09:00 Polyethylene Glycol (Miralax) 17 gm DAILY GTB Last administered on 06/30/19 08:32; Admin Dose 17 GM; Start 06/11/19 at 09:00 Miscellaneous Information 1 ea NOTE XX ; Start 06/10/19 at 14:00 Glucose (Glutose) 15 gm Q15M PRN PO DECREASED GLUCOSE; Start 06/10/19 at 14:00 Glucose (Glutose) 22.5 gm Q15M PRN PO DECREASED GLUCOSE; Start 06/10/19 at 14:00 Dextrose (D50w Syringe) 25 ml Q15M PRN IV DECREASED GLUCOSE; Start 06/10/19 at 14:00 Dextrose (D50w Syringe) 50 ml Q15M PRN IV DECREASED GLUCOSE Last administered on 06/30/19 06:10; Admin Dose 50 ML; Start 06/10/19 at 14:00 Glucagon (Glucagen) 1 mg Q15M PRN IM DECREASED GLUCOSE; Start 06/10/19 at 14:00 Glucose (Glutose) 15 gm Q15M PRN BUCCAL DECREASED GLUCOSE; Start 06/10/19 at 14:00 IV Flush (NS 10 ml) 10 ml [id number] PRN IV Line Patency; Start 06/10/19 at 16:00 Fluvoxamine Maleate (Fluvoxamine Maleate) 25 mg DAILY GTB Last administered on 06/30/19 08:32; Admin Dose 25 MG; Start 06/11/19 at 09:00 Aspirin (Aspirin) 81 mg DAILY PEG Last administered on 06/30/19 08:32; Admin Dose 81 MG; Start 06/11/19 at 09:00 Heparin Sodium (Porcine) (Heparin (5000 Units/1ml)) 5,000 unit Q8 SC Last administered on 06/14/19 06:01; Admin Dose 5,000 UNIT; Start 06/11/19 at 14:00; Status Hold Ipratropium [place]el (Atrovent 0.02% (Neb)) 0.5 mg Q4H RESP THERAPY PRN HHN SHORTNESS OF BREATH; Start 06/12/19 at 10:00 Levalbuterol (Xopenex Neb) 1.25 mg Q4H RESP THERAPY PRN HHN shortness of breath; Start 06/12/19 at 10:00 Fentanyl 100 ml @ 2.5 mls/hr TITRATE IV Last administered on 06/30/19 11:09; Admin Dose 10 MLS/HR; Start 06/12/19 at 10:00 Levalbuterol (Xopenex Hfa) 4 puff Q6H RESP THERAPY INH Last administered on 06/30/19 07:37; Admin Dose 4 PUFF; Start 06/12/19 at 20:00 Ipratropium [place]el (Atrovent Hfa) 4 puff Q6H RESP THERAPY INH Last administered on 06/30/19 07:37; Admin Dose 4 PUFF; Start 06/12/19 at 20:00 Docusate Sodium (Colace Liquid Cup) 100 mg BID GTB Last administered on 06/30/19 08:32; Admin Dose 100 MG; Start 06/14/19 at 12:30 Insulin Aspart (Novolog Insulin Pen) NOVOLOG *MILD* ALGORI... Q4 SC Last administered on 06/29/19 09:22; Admin Dose 1 UNIT; Start 06/16/19 at 21:00 Insulin Glargine (Lantus) 15 units DAILY@0800 SC Last administered on 06/30/19 08:41; Admin Dose 15 UNITS; Start 06/18/19 at 08:00 Propofol 100 ml @ 1.656 mls/ hr Q12H IV Last administered on 06/30/19 06:18; Admin Dose 13.248 MLS/HR; Start 06/18/19 at 10:00 Lactobacillus Acidophilus/ Rhamnosus (Culturelle) 1 cap TID PO Last administered on 06/30/19 08:32; Admin Dose 1 CAP; Start 06/18/19 at 21:00 Eye Lubricant (Artificial Tears Oph) 2 drop QID BOTH EYES Last administered on 06/30/19 08:35; Admin Dose 2 DROP; Start 06/23/19 at 09:30 Eye Lubricant (Akwa Oint) 1 applic Q6 BOTH EYES Last administered on 06/30/19 05:32; Admin Dose 1 APPLIC; Start 06/23/19 at 12:00 Potassium Chloride (Potassium Chloride Pwd/Soln) 20 meq PER PROTOCOL PRN GTB POTASSIUM REPLACEMENT PROTOCOL Last administered on 06/25/19 09:35; Admin Dose 20 MEQ; Start 06/21/19 at 09:30 Potassium Chloride (Potassium Chloride Pwd/Soln) 30 meq PER PROTOCOL PRN GTB POTASSIUM REPLACEMENT PROTOCOL Last administered on 06/27/19 21:06; Admin Dose 30 MEQ; Start 06/21/19 at 09:30 Potassium Chloride (Potassium Chloride Pwd/Soln) 40 meq PER PROTOCOL PRN GTB POTASSIUM REPLACEMENT PROTOCOL Last administered on 06/30/19 08:33; Admin Dose 40 MEQ; Start 06/21/19 at 09:30 Hydrocortisone (Solu-Cortef) 20 mg Q8 IV Last administered on 06/30/19 06:10; Admin Dose 20 MG; Start 06/27/19 at 14:00 JACKIE BRUNNER NP Jun 30, 2019 12:28
[2019-06-30] MEDS: ATORVASTATIN 20 MG TAB GTB SCH (20:25)
[2019-06-30] MEDS: POTASSIUM CHLORIDE 100 ML IVPB SCH (23:06)
[2019-07-01] VITALS (40 sets, daily range): BP systolic 98–134; BP diastolic 56–87; PULSE 60–81; RESP 5–28
[2019-07-01] MEDS: POTASSIUM CHLORIDE 100 ML IVPB SCH ×2 (00:56→03:27)
[2019-07-01] MEDS: INSULIN ASPART [NOVOLOG] 3 ML PEN SC SCH ×6 (00:56→21:00)
[2019-07-01] MEDS: DEXTROSE 50% 50 ML SYRINGE IV PRN (00:58)
[2019-07-01] MEDS: PROPOFOL 100 ML IV SCH ×2 (01:08→16:01)
[2019-07-01] MEDS: LEVALBUTEROL (HFA) 15 GM INHALER INH SCH ×4 (01:38→19:22)
[2019-07-01] MEDS: IPRATROPIUM (HFA) 12.9 GM INHALER INH SCH ×4 (01:38→19:22)
[2019-07-01] MEDS: HYDROCORTISONE 100 MG INJ IV SCH ×3 (05:19→21:28)
[2019-07-01] MEDS: OCULAR LUBRICANT 3.5 GM OPH OINT BOTH EYES SCH ×3 (05:19→17:12)
--- NOTE | 2019-07-01 06:08 | CONS ---
Assessment/Plan Assessment/Plan Assessment/Plan (Daily) On June 24, 2019 I reached out to patient's son Bob and asked if we can set up an appointment in the family conference with all 3 siblings. He did tell me his sister is back from vacation and she is available. However he made it very clear that he has been in contact with Dr. Gomez and Dr. Gonzalez and gave me the clear impression that he did not want to discuss it once again. He was pleasant but said he and other family members are thinking about the next step but at this time they do not want to change level of care I do not want to think about whether not patient should be trached yet. I did tell him that his mother has been intubated for almost 2 weeks and decision needs to be made for trach or not. I told him that even if she is trach that was to have options at some later date to discontinue care in the event that she does not improve significantly which I think would probably be the case Explained the chronicity of her medical problems and her underlying encephalopathy/dementia. He also made very clear that his sister has a strong will and that there may be some differences between them insofar his goals of care. At the end of the conversation he would not commit himself to a family conference I gave him my phone number I have asked him to call me or Dr. Gomez at any time. Dr. Gonzalez is back as primary care physician and has a closer relationship with family members. The plan is for Dr. Gonzalez to call family members to discuss ongoing level of care, trach or lowering the level of care comfort measures. Will discuss with Dr. Gonzalez today and assist in any way I can from a palliative care standpoint. Consultation Date/Type/Reason Admit Date/Time Jun 10, 2019 at 12:38 Initial Consult Date 06/11/19 Requesting Provider: MALINI GOMEZ Date/Time of Note DATE: 07/01/19 TIME: 06:08 Exam/Review of Systems Exam Vitals Vital Signs Date Temp Pulse Resp B/P (MAP) Pulse Ox O2 O2 Flow FiO2 Time Delivery Rate 07/01/19 72 5 131/87 97 Mechanical 06:00 (102) Ventilator 07/01/19 98.5 04:00 07/01/19 85 03:29 Intake and Output 06/30/19 06/30/19 07/01/19 1515:00 23:00 07:00 IntakeIntake Total 175.99 ml 136.194 ml 183.0 ml OutputOutput Total 525 ml 580 ml 405 ml BalanceBalance -349.01 ml -443.806 ml -222.0 ml Results Result Diagram: 07/01/19 0400 07/01/19 0400 Results 24hrs Laboratory Tests Test 06/30/19 08:22 06/30/19 13:02 06/30/19 17:21 06/30/19 20:37 Bedside Glucose 111 81 126 55 L Test 06/30/19 21:02 07/01/19 00:55 07/01/19 01:28 07/01/19 04:00 Bedside Glucose 177 69 L 144 White Blood Count 21.4 H Red Blood Count 3.33 L Hemoglobin 9.7 L Hematocrit 31.0 L Mean Corpuscular Volume 93.1 Mean Corpuscular 29.1 Hemoglobin Mean Corpuscular 31.3 L Hemoglobin Concent Red Cell Distribution 15.0 H Width Platelet Count 124 L Mean Platelet Volume 11.8 H Immature Granulocytes % 0.700 H Neutrophils % 91.9 H Lymphocytes % 2.4 L Monocytes % 4.7 Eosinophils % 0.1 Basophils % 0.2 Nucleated Red Blood 0.0 Cells % Immature Granulocytes # 0.150 H Neutrophils # 19.7 H Lymphocytes # 0.5 L Monocytes # 1.0 H Eosinophils # 0.0 Basophils # 0.0 Nucleated Red Blood 0.0 Cells # Sodium Level 150 H Potassium Level 4.3 Chloride Level 107 Carbon Dioxide Level 35 H Anion Gap 8 Blood Urea Nitrogen 116 H Creatinine 1.20 H Glucose Level 99 Calcium Level 8.0 L Phosphorus Level 4.6 Magnesium Level 2.6 H Albumin 2.5 L Test 07/01/19 05:21 Bedside Glucose 93 Medications Medication Current Medications IV Flush (NS 3 ml) 3 ml PER PROTOCOL IV ; Start 06/10/19 at 12:00 Ondansetron HCl (Zofran Inj) 4 mg Q6H PRN IV NAUSEA/VOMITING; Start 06/10/19 at 12:00 Acetaminophen (Tylenol Tab) 650 mg Q6H PRN PO .PAIN 1-3 OR TEMP Last administered on 06/13/19at 15:52; Admin Dose 650 MG; Start 06/10/19 at 12:00 Acetaminophen/ Hydrocodone Bitart ([place] (5/325)) 1 tab Q6H PRN PO .PAIN 4-6; Start 06/10/19 at 12:00 Morphine Sulfate (morphine) 2 mg Q4H PRN IV .PAIN 7-10 Last administered on 06/15/19 16:57; Admin Dose 2 MG; Start 06/10/19 at 12:00 Amiodarone HCl (Cordarone) 100 mg DAILY GTB Last administered on 06/30/19 08: 33; Admin Dose 100 MG; Start 06/11/19 at 09:00 Atorvastatin Calcium (Lipitor) 20 mg QHS GTB Last administered on 06/29/19 20:20; Admin Dose 20 MG; Start 06/10/19 at 21:00 Levetiracetam (Keppra Liquid) 500 mg BID GTB Last administered on 06/30/19 08:32; Admin Dose 500 MG; Start 06/10/19 at 21:00 Olanzapine (Zyprexa) 5 mg DAILY GTB Last administered on 06/30/19 08:32; Admin Dose 5 MG; Start 06/11/19 at 09:00 Polyethylene Glycol (Miralax) 17 gm DAILY GTB Last administered on 06/30/19 08:32; Admin Dose 17 GM; Start 06/11/19 at 09:00 Miscellaneous Information 1 ea NOTE XX ; Start 06/10/19 at 14:00 Glucose (Glutose) 15 gm Q15M PRN PO DECREASED GLUCOSE; Start 06/10/19 at 14:00 Glucose (Glutose) 22.5 gm Q15M PRN PO DECREASED GLUCOSE; Start 06/10/19 at 14:00 Dextrose (D50w Syringe) 25 ml Q15M PRN IV DECREASED GLUCOSE Last administered on 06/30/19 17:14; Admin Dose 25 ML; Start 06/10/19 at 14:00 Dextrose (D50w Syringe) 50 ml Q15M PRN IV DECREASED GLUCOSE Last administered on 07/01/19 00:58; Admin Dose 50 ML; Start 06/10/19 at 14:00 Glucagon (Glucagen) 1 mg Q15M PRN IM DECREASED GLUCOSE; Start 06/10/19 at 14:00 Glucose (Glutose) 15 gm Q15M PRN BUCCAL DECREASED GLUCOSE; Start 06/10/19 at 14:00 IV Flush (NS 10 ml) 10 ml [id number] PRN IV Line Patency; Start 06/10/19 at 16:00 Fluvoxamine Maleate (Fluvoxamine Maleate) 25 mg DAILY GTB Last administered on 06/30/19 08:32; Admin Dose 25 MG; Start 06/11/19 at 09:00 Aspirin (Aspirin) 81 mg DAILY PEG Last administered on 06/30/19 08:32; Admin Dose 81 MG; Start 06/11/19 at 09:00 Heparin Sodium (Porcine) (Heparin (5000 Units/1ml)) 5,000 unit Q8 SC Last administered on 06/14/19 06:01; Admin Dose 5,000 UNIT; Start 06/11/19 at 14:00; Status Hold Ipratropium [place] (Atrovent 0.02% (Neb)) 0.5 mg Q4H RESP THERAPY PRN HHN SHORTNESS OF BREATH; Start 06/12/19 at 10:00 Levalbuterol (Xopenex Neb) 1.25 mg Q4H RESP THERAPY PRN HHN shortness of breath; Start 06/12/19 at 10:00 Fentanyl 100 ml @ 2.5 mls/hr TITRATE IV Last administered on 06/30/19 21:05; Admin Dose 10 MLS/HR; Start 06/12/19 at 10:00 Levalbuterol (Xopenex Hfa) 4 puff Q6H RESP THERAPY INH Last administered on 07/01/19 01:38; Admin Dose 4 PUFF; Start 06/12/19 at 20:00 Ipratropium [place] (Atrovent Hfa) 4 puff Q6H RESP THERAPY INH Last administered on 07/01/19 01:38; Admin Dose 4 PUFF; Start 06/12/19 at 20:00 Docusate Sodium (Colace Liquid Cup) 100 mg BID GTB Last administered on 06/30/19 08:32; Admin Dose 100 MG; Start 06/14/19 at 12:30 Insulin Aspart (Novolog Insulin Pen) NOVOLOG *MILD* ALGORI... Q4 SC Last administered on 06/29/19 09:22; Admin Dose 1 UNIT; Start 06/16/19 at 21:00 Insulin Glargine (Lantus) 15 units DAILY@0800 SC Last administered on 06/30/19 08:41; Admin Dose 15 UNITS; Start 06/18/19 at 08:00 Propofol 100 ml @ 1.656 mls/ hr Q12H IV Last administered on 07/01/19 01:08; Admin Dose 6.624 MLS/HR; Start 06/18/19 at 10:00 Lactobacillus Acidophilus/ Rhamnosus (Culturelle) 1 cap TID PO Last administered on 06/30/19 13:04; Admin Dose 1 CAP; Start 06/18/19 at 21:00 Eye Lubricant (Artificial Tears Oph) 2 drop QID BOTH EYES Last administered on 06/30/19 20:39; Admin Dose 2 DROP; Start 06/23/19 at 09:30 Eye Lubricant (Akwa Oint) 1 applic Q6 BOTH EYES Last administered on 07/01/19 05:19; Admin Dose 1 APPLIC; Start 06/23/19 at 12:00 Potassium Chloride (Potassium Chloride Pwd/Soln) 20 meq PER PROTOCOL PRN GTB POTASSIUM REPLACEMENT PROTOCOL Last administered on 06/25/19 09:35; Admin Dose 20 MEQ; Start 06/21/19 at 09:30 Potassium Chloride (Potassium Chloride Pwd/Soln) 30 meq PER PROTOCOL PRN GTB POTASSIUM REPLACEMENT PROTOCOL Last administered on 06/27/19 21:06; Admin Dose 30 MEQ; Start 06/21/19 at 09:30 Potassium Chloride (Potassium Chloride Pwd/Soln) 40 meq PER PROTOCOL PRN GTB POTASSIUM REPLACEMENT PROTOCOL Last administered on 06/30/19 08:33; Admin Dose 40 MEQ; Start 06/21/19 at 09:30 Hydrocortisone (Solu-Cortef) 20 mg Q8 IV Last administered on 07/01/19 05:19; Admin Dose 20 MG; Start 06/27/19 at 14:00 NANCY BANKS Jul 01, 2019 06:08
[2019-07-01] MEDS: FENTAnyl (DRIP) 1000 mcg/100mL 100 ML IV SCH ×2 (06:26→18:22)
[2019-07-01] MEDS: ARTIFICIAL TEARS 15 ML OPH BOTH EYES SCH ×4 (09:03→21:29)
[2019-07-01] MEDS: LEVETIRACETAM (100 MG/ML) 5ML CUP GTB SCH ×2 (09:04→21:28)
[2019-07-01] MEDS: FLUVOXAMINE MALEATE 25 MG TABLET GTB SCH (09:04)
[2019-07-01] MEDS: ASPIRIN 81 MG TAB PEG SCH (09:04)
[2019-07-01] MEDS: OLANZAPINE 5 MG TAB GTB SCH (09:04)
[2019-07-01] MEDS: LACTOBACILLUS RHAMNOSUS CAP PO SCH ×3 (09:04→21:28)
[2019-07-01] MEDS: DOCUSATE SODIUM 10 MG/ML (10ML CUP) GTB SCH ×2 (09:04→21:00)
[2019-07-01] MEDS: POLYETHYLENE GLYCOL 17 GM PACKET GTB SCH (09:05)
[2019-07-01] MEDS: AMIODARONE 200 MG TAB GTB SCH (09:05)
[2019-07-01] MEDS: BALSAM PERU/CASTOR OIL 60 GM TUBE TOP SCH (09:05)
--- NOTE | 2019-07-01 09:22 | CONS ---
Assessment/Plan Assessment/Plan Assessment/Plan (Daily) Ventilator setting; AC of 26, pressure controlled, PEEP of 10, 85% FiO2. Patient is currently on fentanyl 100 mics per hour, propofol 20 mics per kilogram per minute. Assessment and recommendations; 1. Patient admitted with severe bilateral pneumonia with ARDS with persistent severe hypoxemia despite adequate antimicrobial administration. 2. History of advanced dementia 3. Prior history of G-tube placement 4. History of seizure disorder. 5. History of diabetes 6. History of cardiac arrhythmia, patient however currently in sinus rhythm. Continue current supportive care. Prognosis is extremely poor. Awaiting for family member to arrive from out of state for possible palliative care. Consultation Date/Type/Reason Admit Date/Time Jun 10, 2019 at 12:38 Initial Consult Date 06/11/19 Type of Consult Pulmonary/critical care Patient is an 84-year-old [place] lady who was transferred to to the hospital from senior care with hypoxemia. Upon evaluation patient is been diagnosed with sepsis due to pneumonia. Patient has advanced dementia and is unable to give any history by herself whatsoever. Patient however is appearing tachypneic. Past medical history; 1. History of chronic atrial fibrillation. 2. Advanced dementia. 3. History of G-tube placement. 4. History of diabetes. 5. History of hypertension. Medications; reviewed. Allergies; none. Social history, family history, occupational history is are not available. Review of systems; unable to be obtained. General exam; elderly woman, on BiPAP. Noncommunicative. Tachypneic. Requesting Provider: MALINI GOMEZ Date/Time of Note DATE: 07/01/19 TIME: 09:20 24 HR Interval Summary Free Text/Dictation Patient's condition is critical. Still on high FiO2 for severe hypoxemia. Patient however has remained hemodynamically stable. General exam; elderly woman, orally intubated, sedated, currently in no distress. Exam/Review of Systems Exam Vitals Vital Signs Date Temp Pulse Resp B/P (MAP) Pulse Ox O2 O2 Flow FiO2 Time Delivery Rate 07/01/19 72 5 131/87 97 Mechanical 06:00 (102) Ventilator 07/01/19 85 05:42 07/01/19 98.5 04:00 Intake and Output 06/30/19 06/30/19 07/01/19 1515:00 23:00 07:00 IntakeIntake Total 175.99 ml 136.194 ml 216.2 ml OutputOutput Total 525 ml 580 ml 405 ml BalanceBalance -349.01 ml -443.806 ml -188.8 ml Exam H ENT exam; supple neck, no JVD. No lymphadenopathy. Midline trachea. No thyromegaly. Orally intubated. Patient does have carious teeth. Pupils are small bilaterally. No neck masses. Chest exam; diminished breath sounds bilaterally with bilateral crackles. S1-S2 audible, no murmurs. Regular rhythm. Abdomen exam; soft, nondistended. G-tube in place. Bowel sounds are audible. Extremity exam; 2+ anasarca. MOLECULAR PATHOLOGIST exam; patient is sedated. Results Result Diagram: 07/01/19 0400 07/01/19 0400 Results 24hrs Laboratory Tests Test 06/30/19 13:02 06/30/19 17:06 06/30/19 17:21 06/30/19 20:37 Bedside Glucose 81 51 L 126 55 L Test 06/30/19 21:02 07/01/19 00:55 07/01/19 01:28 07/01/19 04:00 Bedside Glucose 177 69 L 144 White Blood Count 21.4 H Red Blood Count 3.33 L Hemoglobin 9.7 L Hematocrit 31.0 L Mean Corpuscular Volume 93.1 Mean Corpuscular 29.1 Hemoglobin Mean Corpuscular 31.3 L Hemoglobin Concent Red Cell Distribution 15.0 H Width Platelet Count 124 L Mean Platelet Volume 11.8 H Immature Granulocytes % 0.700 H Neutrophils % 91.9 H Lymphocytes % 2.4 L Monocytes % 4.7 Eosinophils % 0.1 Basophils % 0.2 Nucleated Red Blood 0.0 Cells % Immature Granulocytes # 0.150 H Neutrophils # 19.7 H Lymphocytes # 0.5 L Monocytes # 1.0 H Eosinophils # 0.0 Basophils # 0.0 Nucleated Red Blood 0.0 Cells # Sodium Level 150 H Potassium Level 4.3 Chloride Level 107 Carbon Dioxide Level 35 H Anion Gap 8 Blood Urea Nitrogen 116 H Creatinine 1.20 H Glucose Level 99 Calcium Level 8.0 L Phosphorus Level 4.6 Magnesium Level 2.6 H Albumin 2.5 L Test 07/01/19 05:21 07/01/19 08:20 Bedside Glucose 93 86 Medications Medication Current Medications IV Flush (NS 3 ml) 3 ml PER PROTOCOL IV ; Start 06/10/19 at 12:00 Ondansetron HCl (Zofran Inj) 4 mg Q6H PRN IV NAUSEA/VOMITING; Start 06/10/19 at 12:00 Acetaminophen (Tylenol Tab) 650 mg Q6H PRN PO .PAIN 1-3 OR TEMP Last administered on 06/13/19 15:52; Admin Dose 650 MG; Start 06/10/19 at 12:00 Acetaminophen/ Hydrocodone Bitart ([place] (5/325)) 1 tab Q6H PRN PO .PAIN 4-6; Start 06/10/19 at 12:00 Morphine Sulfate (morphine) 2 mg Q4H PRN IV .PAIN 7-10 Last administered on 06/15/19 16:57; Admin Dose 2 MG; Start 06/10/19 at 12:00 Amiodarone HCl (Cordarone) 100 mg DAILY GTB Last administered on 07/01/19 09:05; Admin Dose 100 MG; Start 06/11/19 at 09:00 Atorvastatin Calcium (Lipitor) 20 mg QHS GTB Last administered on 06/29/19 20:20; Admin Dose 20 MG; Start 06/10/19 at 21:00 Levetiracetam (Keppra Liquid) 500 mg BID GTB Last administered on 07/01/19 09:04; Admin Dose 500 MG; Start 06/10/19 at 21:00 Olanzapine (Zyprexa) 5 mg DAILY GTB Last administered on 07/01/19 09:04; Admin Dose 5 MG; Start 06/11/19 at 09:00 Polyethylene Glycol (Miralax) 17 gm DAILY GTB Last administered on 07/01/19 09:05; Admin Dose 17 GM; Start 06/11/19 at 09:00 Miscellaneous Information 1 ea NOTE XX ; Start 06/10/19 at 14:00 Glucose (Glutose) 15 gm Q15M PRN PO DECREASED GLUCOSE; Start 06/10/19 at 14:00 Glucose (Glutose) 22.5 gm Q15M PRN PO DECREASED GLUCOSE; Start 06/10/19 at 14:00 Dextrose (D50w Syringe) 25 ml Q15M PRN IV DECREASED GLUCOSE Last administered on 06/30/19 17:14; Admin Dose 25 ML; Start 06/10/19 at 14:00 Dextrose (D50w Syringe) 50 ml Q15M PRN IV DECREASED GLUCOSE Last administered on 07/01/19 00:58; Admin Dose 50 ML; Start 06/10/19 at 14:00 Glucagon (Glucagen) 1 mg Q15M PRN IM DECREASED GLUCOSE; Start 06/10/19 at 14:00 Glucose (Glutose) 15 gm Q15M PRN BUCCAL DECREASED GLUCOSE; Start 06/10/19 at 14:00 IV Flush (NS 10 ml) 10 ml [id number] PRN IV Line Patency; Start 06/10/19 at 16:00 Fluvoxamine Maleate (Fluvoxamine Maleate) 25 mg DAILY GTB Last administered on 07/01/19 09:04; Admin Dose 25 MG; Start 06/11/19 at 09:00 Aspirin (Aspirin) 81 mg DAILY PEG Last administered on 07/01/19 09:04; Admin Dose 81 MG; Start 06/11/19 at 09:00 Heparin Sodium (Porcine) (Heparin (5000 Units/1ml)) 5,000 unit Q8 SC Last administered on 06/14/19 06:01; Admin Dose 5,000 UNIT; Start 06/11/19 at 14:00; Status Hold Ipratropium [place] (Atrovent 0.02% (Neb)) 0.5 mg Q4H RESP THERAPY PRN HHN SHORTNESS OF BREATH; Start 06/12/19 at 10:00 Levalbuterol (Xopenex Neb) 1.25 mg Q4H RESP THERAPY PRN HHN shortness of breath; Start 06/12/19 at 10:00 Fentanyl 100 ml @ 2.5 mls/hr TITRATE IV Last administered on 07/01/19 06:26; Admin Dose 10 MLS/HR; Start 06/12/19 at 10:00 Levalbuterol (Xopenex Hfa) 4 puff Q6H RESP THERAPY INH Last administered on 07/01/19 07:48; Admin Dose 4 PUFF; Start 06/12/19 at 20:00 Ipratropium [place] (Atrovent Hfa) 4 puff Q6H RESP THERAPY INH Last admini stered on 07/01/19 07:47; Admin Dose 4 PUFF; Start 06/12/19 at 20:00 Docusate Sodium (Colace Liquid Cup) 100 mg BID GTB Last administered on 07/01/19 09:04; Admin Dose 100 MG; Start 06/14/19 at 12:30 Insulin Aspart (Novolog Insulin Pen) NOVOLOG *MILD* ALGORI... Q4 SC Last administered on 06/29/19 09:22; Admin Dose 1 UNIT; Start 06/16/19 at 21:00 Insulin Glargine (Lantus) 15 units DAILY@0800 SC Last administered on 06/30/19 08:41; Admin Dose 15 UNITS; Start 06/18/19 at 08:00 Propofol 100 ml @ 1.656 mls/ hr Q12H IV Last administered on 07/01/19 01:08; Admin Dose 6.624 MLS/HR; Start 06/18/19 at 10:00 Lactobacillus Acidophilus/ Rhamnosus (Culturelle) 1 cap TID PO Last administered on 07/01/19 09:04; Admin Dose 1 CAP; Start 06/18/19 at 21:00 Eye Lubricant (Artificial Tears Oph) 2 drop QID BOTH EYES Last administered on 07/01/19 09:03; Admin Dose 2 DROP; Start 06/23/19 at 09:30 Eye Lubricant (Akwa Oint) 1 applic Q6 BOTH EYES Last administered on 07/01/19 05:19; Admin Dose 1 APPLIC; Start 06/23/19 at 12:00 Potassium Chloride (Potassium Chloride Pwd/Soln) 20 meq PER PROTOCOL PRN GTB POTASSIUM REPLACEMENT PROTOCOL Last administered on 06/25/19 09:35; Admin Dose 20 MEQ; Start 06/21/19 at 09:30 Potassium Chloride (Potassium Chloride Pwd/Soln) 30 meq PER PROTOCOL PRN GTB POTASSIUM REPLACEMENT PROTOCOL Last administered on 06/27/19 21:06; Admin Dose 30 MEQ; Start 06/21/19 at 09:30 Potassium Chloride (Potassium Chloride Pwd/Soln) 40 meq PER PROTOCOL PRN GTB POTASSIUM REPLACEMENT PROTOCOL Last administered on 06/30/19 08:33; Admin Dose 40 MEQ; Start 06/21/19 at 09:30 Hydrocortisone (Solu-Cortef) 20 mg Q8 IV Last administered on 07/01/19 05:19; Admin Dose 20 MG; Start 06/27/19 at 14:00 CHARAN LAUREANO Jul 01, 2019 09:22
--- NOTE | 2019-07-01 11:48 | CONS ---
Assessment/Plan Assessment/Plan Assessment/Plan (Daily) 1. acute Hypernatremia due to severe dehydration -resolved 2. acute Hyperkalemia due to FLOYD - Resolved 3. acute kidney injury on CKD III due to ATN from sepsis and Prerenal azotemia 4 . Septic shock due to multifocal PNA and UTI 5. Acute hypoxic respiratory failure due to PNA and Septic shock - Failed BIPAP- Intubated on 06/12/19 , 6. H/O severe dementia 7. H/O HTN 8. H/O HL 9. SNF resident 10. acute on chronic encephalopathy 11 h/o Dysphagia S/p G tube placement 12. Hypocalcemia 13. UTI with Urine cx growing ESBL Klebsiella Plan: BUN/Cr rising to 116/1.2, K 4.3, Na 150 Poor candidate for dialysis due to age, comorbidiites, consider palliative care follow up and comfort care off all abx now, ID following, plan is to repeat Cultures Ventilator Management as per pulmonary -- not doing well, still requiring high PEEP DNR code status, consider Palliative care consult with comfort care if family agrees will follow up Consultation Date/Type/Reason Admit Date/Time Jun 10, 2019 at 12:38 Initial Consult Date 06/11/19 Type of Consult NEPHROLOGY Requesting Provider: MALINI GOMEZ Date/Time of Note DATE: 07/01/19 TIME: 11:48 Exam/Review of Systems Exam Vitals Vital Signs Date Temp Pulse Resp B/P (MAP) Pulse Ox O2 O2 Flow FiO2 Time Delivery Rate 07/01/19 63 26 113/68 98 Mechanical 10:00 (83) Ventilator 07/01/19 80 09:30 07/01/19 98.5 08:00 Intake and Output 06/30/19 06/30/19 07/01/19 1515:00 23:00 07:00 IntakeIntake Total 175.99 ml 136.194 ml 232.824 ml OutputOutput Total 525 ml 580 ml 530 ml BalanceBalance -349.01 ml -443.806 ml -297.176 ml Exam Constitutional: non-verbal, other (intubated, unresponsive) Respiratory: normal air movement Cardiovascular: regular rate and rhythm Gastrointestinal: soft, distended Musculoskeletal: nl extremities to inspection Extremities: normal pulses, edema (diffuse anasarca) Neurological: lethargic, unresponsive Skin: other (diffuse anasarca) Results Result Diagram: 07/01/19 0400 07/01/19 0400 Results 24hrs Laboratory Tests Test 06/30/19 13:02 06/30/19 17:06 06/30/19 17:21 06/30/19 20:37 Bedside Glucose 81 51 L 126 55 L Test 06/30/19 21:02 07/01/19 00:55 07/01/19 01:28 07/01/19 04:00 Bedside Glucose 177 69 L 144 White Blood Count 21.4 H Red Blood Count 3.33 L Hemoglobin 9.7 L Hematocrit 31.0 L Mean Corpuscular Volume 93.1 Mean Corpuscular 29.1 Hemoglobin Mean Corpuscular 31.3 L Hemoglobin Concent Red Cell Distribution 15.0 H Width Platelet Count 124 L Mean Platelet Volume 11.8 H Immature Granulocytes % 0.700 H Neutrophils % 91.9 H Lymphocytes % 2.4 L Monocytes % 4.7 Eosinophils % 0.1 Basophils % 0.2 Nucleated Red Blood 0.0 Cells % Immature Granulocytes # 0.150 H Neutrophils # 19.7 H Lymphocytes # 0.5 L Monocytes # 1.0 H Eosinophils # 0.0 Basophils # 0.0 Nucleated Red Blood 0.0 Cells # Sodium Level 150 H Potassium Level 4.3 Chloride Level 107 Carbon Dioxide Level 35 H Anion Gap 8 Blood Urea Nitrogen 116 H Creatinine 1.20 H Glucose Level 99 Calcium Level 8.0 L Phosphorus Level 4.6 Magnesium Level 2.6 H Albumin 2.5 L Test 07/01/19 05:21 07/01/19 08:20 Bedside Glucose 93 86 Medications Medication Current Medications IV Flush (NS 3 ml) 3 ml PER PROTOCOL IV ; Start 06/10/19 at 12:00 Ondansetron HCl (Zofran Inj) 4 mg Q6H PRN IV NAUSEA/VOMITING; Start 06/10/19 at 12:00 Acetaminophen (Tylenol Tab) 650 mg Q6H PRN PO .PAIN 1-3 OR TEMP Last administered on 06/13/19at 15:52; Admin Dose 650 MG; Start 06/10/19 at 12:00 Acetaminophen/ Hydrocodone Bitart ([place] (5/325)) 1 tab Q6H PRN PO .PAIN 4-6; Start 06/10/19 at 12:00 Morphine Sulfate (morphine) 2 mg Q4H PRN IV .PAIN 7-10 Last administered on 06/15/19at 16:57; Admin Dose 2 MG; Start 06/10/19 at 12:00 Amiodarone HCl (Cordarone) 100 mg DAILY GTB Last administered on 07/01/19at 09:05; Admin Dose 100 MG; Start 06/11/19 at 09:00 Atorvastatin Calcium (Lipitor) 20 mg QHS GTB Last administered on 06/29/19at 20:20; Admin Dose 20 MG; Start 06/10/19 at 21:00 Levetiracetam (Keppra Liquid) 500 mg BID GTB Last administered on 07/01/19at 09:04; Admin Dose 500 MG; Start 06/10/19 at 21:00 Olanzapine (Zyprexa) 5 mg DAILY GTB Last administered on 07/01/19at 09:04; Admin Dose 5 MG; Start 06/11/19 at 09:00 Polyethylene Glycol (Miralax) 17 gm DAILY GTB Last administered on 07/01/19at 09:05; Admin Dose 17 GM; Start 06/11/19 at 09:00 Miscellaneous Information 1 ea NOTE XX ; Start 06/10/19 at 14:00 Glucose (Glutose) 15 gm Q15M PRN PO DECREASED GLUCOSE; Start 06/10/19 at 14:00 Glucose (Glutose) 22.5 gm Q15M PRN PO DECREASED GLUCOSE; Start 06/10/19 at 14:00 Dextrose (D50w Syringe) 25 ml Q15M PRN IV DECREASED GLUCOSE Last administered on 06/30/19at 17:14; Admin Dose 25 ML; Start 06/10/19 at 14:00 Dextrose (D50w Syringe) 50 ml Q15M PRN IV DECREASED GLUCOSE Last administered on 07/01/19at 00:58; Admin Dose 50 ML; Start 06/10/19 at 14:00 Glucagon (Glucagen) 1 mg Q15M PRN IM DECREASED GLUCOSE; Start 06/10/19 at 14:00 Glucose (Glutose) 15 gm Q15M PRN BUCCAL DECREASED GLUCOSE; Start 06/10/19 at 14:00 IV Flush (NS 10 ml) 10 ml [id number] PRN IV Line Patency; Start 06/10/19 at 16:00 Fluvoxamine Maleate (Fluvoxamine Maleate) 25 mg DAILY GTB Last administered on 07/01/19 09:04; Admin Dose 25 MG; Start 06/11/19 at 09:00 Aspirin (Aspirin) 81 mg DAILY PEG Last administered on 07/01/19 09:04; Admin Dose 81 MG; Start 06/11/19 at 09:00 Heparin Sodium (Porcine) (Heparin (5000 Units/1ml)) 5,000 unit Q8 SC Last administered on 06/14/19 06:01; Admin Dose 5,000 UNIT; Start 06/11/19 at 14:00; Status Hold Ipratropium [place] (Atrovent 0.02% (Neb)) 0.5 mg Q4H RESP THERAPY PRN HHN SHOR TNESS OF BREATH; Start 06/12/19 at 10:00 Levalbuterol (Xopenex Neb) 1.25 mg Q4H RESP THERAPY PRN HHN shortness of breath; Start 06/12/19 at 10:00 Fentanyl 100 ml @ 2.5 mls/hr TITRATE IV Last administered on 07/01/19 06:26; Admin Dose 10 MLS/HR; Start 06/12/19 at 10:00 Levalbuterol (Xopenex Hfa) 4 puff Q6H RESP THERAPY INH Last administered on 07/01/19 07:48; Admin Dose 4 PUFF; Start 06/12/19 at 20:00 Ipratropium [place] (Atrovent Hfa) 4 puff Q6H RESP THERAPY INH Last administered on 07/01/19 07:47; Admin Dose 4 PUFF; Start 06/12/19 at 20:00 Docusate Sodium (Colace Liquid Cup) 100 mg BID GTB Last administered on 07/01/19 09:04; Admin Dose 100 MG; Start 06/14/19 at 12:30 Insulin Aspart (Novolog Insulin Pen) NOVOLOG *MILD* ALGORI... Q4 SC Last administered on 06/29/19 09:22; Admin Dose 1 UNIT; Start 06/16/19 at 21:00 Insulin Glargine (Lantus) 15 units DAILY@0800 SC Last administered on 06/30/19 08:41; Admin Dose 15 UNITS; Start 06/18/19 at 08:00 Propofol 100 ml @ 1.656 mls/ hr Q12H IV Last administered on 07/01/19 01:08; Admin Dose 6.624 MLS/HR; Start 06/18/19 at 10:00 Lactobacillus Acidophilus/ Rhamnosus (Culturelle) 1 cap TID PO Last administered on 07/01/19 09:04; Admin Dose 1 CAP; Start 06/18/19 at 21:00 Eye Lubricant (Artificial Tears Oph) 2 drop QID BOTH EYES Last administered on 07/01/19 09:03; Admin Dose 2 DROP; Start 06/23/19 at 09:30 Eye Lubricant (Akwa Oint) 1 applic Q6 BOTH EYES Last administered on 07/01/19 05:19; Admin Dose 1 APPLIC; Start 06/23/19 at 12:00 Potassium Chloride (Potassium Chloride Pwd/Soln) 20 meq PER PROTOCOL PRN GTB POTASSIUM REPLACEMENT PROTOCOL Last administered on 06/25/19at 09:35; Admin Dose 20 MEQ; Start 06/21/19 at 09:30 Potassium Chloride (Potassium Chloride Pwd/Soln) 30 meq PER PROTOCOL PRN GTB POTASSIUM REPLACEMENT PROTOCOL Last administered on 06/27/19at 21:06; Admin Dose 30 MEQ; Start 06/21/19 at 09:30 Potassium Chloride (Potassium Chloride Pwd/Soln) 40 meq PER PROTOCOL PRN GTB POTASSIUM REPLACEMENT PROTOCOL Last administered on 06/30/19 08:33; Admin Dose 40 MEQ; Start 06/21/19 at 09:30 Hydrocortisone (Solu-Cortef) 20 mg Q8 IV Last administered on 07/01/19 05:19; Admin Dose 20 MG; Start 06/27/19 at 14:00 GERMAN FELIX MD Jul 01, 2019 11:48
[2019-07-01] MEDS: INSULIN GLARGINE [LANTus] (100 UNITS/ML) SYG SC SCH (13:01)
--- NOTE | 2019-07-01 13:43 | CONS ---
Assessment/Plan Assessment/Plan Hospital Course (Demo Recall) SUBJECTIVE: No acute changes overnight. Patient remains intubated in no distress tube feedings restarted WBC today 21.4 neutrophils 91.9 BUN 116 creatinine 1.20 Repeat urine culture preliminary negative blood cultures pending INDWELLINGS: Endotracheal tube, PEG, Dial, PICC line. PHYSICAL EXAMINATION: GENERAL: Chronically ill-appearing, elderly woman in no distress. HEENT: Head atraumatic, normocephalic. NECK: Supple. Trachea midline. CHEST: Rise symmetrical. Breath sounds diminished to bases. HEART: S1, S2. ABDOMEN: Distended. Bowel tones are hypoactive. EXTREMITIES: Without cyanosis. SKIN: Patient has severe anasarca. ASSESSMENT: 1. Ongoing leukocytosis, possibly steroid-induced, possibly recurrent nosocomial sepsis 2. Acute respiratory failure 3. Healthcare associated pneumonia 4. Klebsiella ESBL UTI 5. Dysphagia 6. Atrial fibrillation and non-ST elevation [place] 9. Acute kidney insufficiency Plan: Remains hemodynamically stable, on steroids tapering, off antibiotics, will await for repeat blood cultures and order chest x-ray Consultation Date/Type/Reason Admit Date/Time Jun 10, 2019 at 12:38 Initial Consult Date 06/11/19 Type of Consult id Requesting Provider: MALINI GOMEZ Date/Time of Note DATE: 07/01/19 TIME: 13:40 Exam/Review of Systems Exam Vitals Vital Signs Date Temp Pulse Resp B/P (MAP) Pulse Ox O2 O2 Flow FiO2 Time Delivery Rate 07/01/19 63 26 100/62 98 Mechanical 13:00 (75) Ventilator 07/01/19 97.7 12:00 07/01/19 80 12:00 Intake and Output 06/30/19 06/30/19 07/01/19 1515:00 23:00 07:00 IntakeIntake Total 175.99 ml 136.194 ml 232.824 ml OutputOutput Total 525 ml 580 ml 530 ml BalanceBalance -349.01 ml -443.806 ml -297.176 ml Results Result Diagram: 07/01/19 0400 07/01/19 0400 Results 24hrs Laboratory Tests Test 06/30/19 17:06 06/30/19 17:21 06/30/19 20:37 06/30/19 21:02 Bedside Glucose 51 L 126 55 L 177 Test 07/01/19 00:55 07/01/19 01:28 07/01/19 04:00 07/01/19 05:21 Bedside Glucose 69 L 144 93 White Blood Count 21.4 H Red Blood Count 3.33 L Hemoglobin 9.7 L Hematocrit 31.0 L Mean Corpuscular Volume 93.1 Mean Corpuscular 29.1 Hemoglobin Mean Corpuscular 31.3 L Hemoglobin Concent Red Cell Distribution 15.0 H Width Platelet Count 124 L Mean Platelet Volume 11.8 H Immature Granulocytes % 0.700 H Neutrophils % 91.9 H Lymphocytes % 2.4 L Monocytes % 4.7 Eosinophils % 0.1 Basophils % 0.2 Nucleated Red Blood 0.0 Cells % Immature Granulocytes # 0.150 H Neutrophils # 19.7 H Lymphocytes # 0.5 L Monocytes # 1.0 H Eosinophils # 0.0 Basophils # 0.0 Nucleated Red Blood 0.0 Cells # Sodium Level 150 H Potassium Level 4.3 Chloride Level 107 Carbon Dioxide Level 35 H Anion Gap 8 Blood Urea Nitrogen 116 H Creatinine 1.20 H Glucose Level 99 Calcium Level 8.0 L Phosphorus Level 4.6 Magnesium Level 2.6 H Albumin 2.5 L Test 07/01/19 08:20 07/01/19 12:53 Bedside Glucose 86 118 Medications Medication Current Medications IV Flush (NS 3 ml) 3 ml PER PROTOCOL IV ; Start 06/10/19 at 12:00 Ondansetron HCl (Zofran Inj) 4 mg Q6H PRN IV NAUSEA/VOMITING; Start 06/10/19 at 12:00 Acetaminophen (Tylenol Tab) 650 mg Q6H PRN PO .PAIN 1-3 OR TEMP Last administered on 06/13/19at 15:52; Admin Dose 650 MG; Start 06/10/19 at 12:00 Acetaminophen/ Hydrocodone Bitart ([place] (5/325)) 1 tab Q6H PRN PO .PAIN 4-6; Start 06/10/19 at 12:00 Morphine Sulfate (morphine) 2 mg Q4H PRN IV .PAIN 7-10 Last administered on 06/15/19at 16:57; Admin Dose 2 MG; Start 06/10/19 at 12:00 Amiodarone HCl (Cordarone) 100 mg DAILY GTB Last administered on 07/01/19at 09:05; Admin Dose 100 MG; Start 06/11/19 at 09:00 Atorvastatin Calcium (Lipitor) 20 mg QHS GTB Last administered on 06/29/19at 20:20; Admin Dose 20 MG; Start 06/10/19 at 21:00 Levetiracetam (Keppra Liquid) 500 mg BID GTB Last administered on 07/01/19 09:04; Admin Dose 500 MG; Start 06/10/19 at 21:00 Olanzapine (Zyprexa) 5 mg DAILY GTB Last administered on 07/01/19 09:04; Admin Dose 5 MG; Start 06/11/19 at 09:00 Polyethylene Glycol (Miralax) 17 gm DAILY GTB Last administered on 07/01/19 09:05; Admin Dose 17 GM; Start 06/11/19 at 09:00 Miscellaneous Information 1 ea NOTE XX ; Start 06/10/19 at 14:00 Glucose (Glutose) 15 gm Q15M PRN PO DECREASED GLUCOSE; Start 06/10/19 at 14:00 Glucose (Glutose) 22.5 gm Q15M PRN PO DECREASED GLUCOSE; Start 06/10/19 at 14:00 Dextrose (D50w Syringe) 25 ml Q15M PRN IV DECREASED GLUCOSE Last administered on 06/30/19at 17:14; Admin Dose 25 ML; Start 06/10/19 at 14:00 Dextrose (D50w Syringe) 50 ml Q15M PRN IV DECREASED GLUCOSE Last administered on 07/01/19at 00:58; Admin Dose 50 ML; Start 06/10/19 at 14:00 Glucagon (Glucagen) 1 mg Q15M PRN IM DECREASED GLUCOSE; Start 06/10/19 at 14:00 Glucose (Glutose) 15 gm Q15M PRN BUCCAL DECREASED GLUCOSE; Start 06/10/19 at 14:00 IV Flush (NS 10 ml) 10 ml [id number] PRN IV Line Patency; Start 06/10/19 at 16:00 Fluvoxamine Maleate (Fluvoxamine Maleate) 25 mg DAILY GTB Last administered on 07/01/19 09:04; Admin Dose 25 MG; Start 06/11/19 at 09:00 Aspirin (Aspirin) 81 mg DAILY PEG Last administered on 07/01/19 09:04; Admin Dose 81 MG; Start 06/11/19 at 09:00 Heparin Sodium (Porcine) (Heparin (5000 Units/1ml)) 5,000 unit Q8 SC Last administered on 06/14/19 06:01; Admin Dose 5,000 UNIT; Start 06/11/19 at 14:00; Status Hold Ipratropium [place] (Atrovent 0.02% (Neb)) 0.5 mg Q4H RESP THERAPY PRN HHN SHORTNESS OF BREATH; Start 06/12/19 at 10:00 Levalbuterol (Xopenex Neb) 1.25 mg Q4H RESP THERAPY PRN HHN shortness of breath; Start 06/12/19 at 10:00 Fentanyl 100 ml @ 2.5 mls/hr TITRATE IV Last administered on 07/01/19 06:26; Admin Dose 10 MLS/HR; Start 06/12/19 at 10:00 Levalbuterol (Xopenex Hfa) 4 puff Q6H RESP THERAPY INH Last administered on 07/01/19 07:48; Admin Dose 4 PUFF; Start 06/12/19 at 20:00 Ipratropium [place] (Atrovent Hfa) 4 puff Q6H RESP THERAPY INH Last administered on 07/01/19 07:47; Admin Dose 4 PUFF; Start 06/12/19 at 20:00 Docusate Sodium (Colace Liquid Cup) 100 mg BID GTB Last administered on 07/01/19 09:04; Admin Dose 100 MG; Start 06/14/19 at 12:30 Insulin Aspart (Novolog Insulin Pen) NOVOLOG *MILD* ALGORI... Q4 SC Last administered on 06/29/19 09:22; Admin Dose 1 UNIT; Start 06/16/19 at 21:00 Insulin Glargine (Lantus) 15 units DAILY@0800 SC Last administered on 07/01/19 13:01; Admin Dose 15 UNITS; Start 06/18/19 at 08:00 Propofol 100 ml @ 1.656 mls/ hr Q12H IV Last administered on 07/01/19 01:08; Admin Dose 6.624 MLS/HR; Start 06/18/19 at 10:00 Lactobacillus Acidophilus/ Rhamnosus (Culturelle) 1 cap TID PO Last administered on 07/01/19 12:54; Admin Dose 1 CAP; Start 06/18/19 at 21:00 Eye Lubricant (Artificial Tears Oph) 2 drop QID BOTH EYES Last administered on 07/01/19 12:54; Admin Dose 2 DROP; Start 06/23/19 at 09:30 Eye Lubricant (Akwa Oint) 1 applic Q6 BOTH EYES Last administered on 07/01/19 12:55; Admin Dose 1 APPLIC; Start 06/23/19 at 12:00 Potassium Chloride (Potassium Chloride Pwd/Soln) 20 meq PER PROTOCOL PRN GTB POTASSIUM REPLACEMENT PROTOCOL Last administered on 06/25/19 09:35; Admin Dose 20 MEQ; Start 06/21/19 at 09:30 Potassium Chloride (Potassium Chloride Pwd/Soln) 30 meq PER PROTOCOL PRN GTB POTASSIUM REPLACEMENT PROTOCOL Last administered on 06/27/19 21:06; Admin Dose 30 MEQ; Start 06/21/19 at 09:30 Potassium Chloride (Potassium Chloride Pwd/Soln) 40 meq PER PROTOCOL PRN GTB POTASSIUM REPLACEMENT PROTOCOL Last administered on 06/30/19 08:33; Admin Dose 40 MEQ; Start 06/21/19 at 09:30 Hydrocortisone (Solu-Cortef) 20 mg Q8 IV Last administered on 07/01/19 05:19; Admin Dose 20 MG; Start 06/27/19 at 14:00 JACKIE BRUNNER NP Jul 01, 2019 13:43
--- NOTE | 2019-07-01 14:02 | PN ---
Date/Time of Note Date/Time of Note DATE: 07/01/19 TIME: 13:57 Assessment/Plan VTE Prophylaxis Risk score (from [facility] [place])>0 risk: 11 SCD applied (from [facility] [place]): No SCD contraindicated: low risk/ambulating Pharmacological prophylaxis: NA/contraindicated Pharm contraindication: low risk/ambulating Lines/Catheters IV Catheter Type (from [facility]): PICC Line Central line still needed: Yes (meds) Urinary Cath still in place: Yes Reason Cath still needed: other (indicate) (monitor output) Assessment/Plan Hospital Course Assessment: PEG tube malfunction, clogged- de-clogged Dysphagia, enteral feeding dependent Acute hypoxic respiratory failure Multifocal pneumonia Sepsis Dementia Anasarca Plan: After speaking to staff- family leaning towards comfort care- Patient son Osiel spoke in detail with Dr. Gonzalez- awaiting his decision g-tube now functioning GI will sign off but will be available upon reconsult as needed Patient seen in collaboration with Dr. Montenegro Subjective: Course reviewed with nursing staff Patient interviewed and examined All labs, imaging and other results reviewed The patient remains in ICU- will over all poor prognosis. No change in condition. awaiting family decision on comfort measures Constitutional: non-verbal, other (intubated, unresponsive) Psych: other (unresponsive) Head: normocephalic, atraumatic Eyes: nl conjunctiva, nl lids ENMT: nl external ears & nose, nl lips & teeth, nl nasal mucosa & septum Neck: supple Respiratory: normal air movement Cardiovascular: regular rate and rhythm Gastrointestinal: soft, distended Musculoskeletal: nl extremities to inspection Extremities: normal pulses, edema (diffuse anasarca) Neurological: lethargic, unresponsive Skin: other (diffuse anasarca) Result Diagram: 07/01/19 0400 07/01/19 0400 Results 24hrs Laboratory Tests Test 06/30/19 17:06 06/30/19 17:21 06/30/19 20:37 06/30/19 21:02 Bedside Glucose 51 L 126 55 L 177 Test 07/01/19 00:55 07/01/19 01:28 07/01/19 04:00 07/01/19 05:21 Bedside Glucose 69 L 144 93 White Blood Count 21.4 H Red Blood Count 3.33 L Hemoglobin 9.7 L Hematocrit 31.0 L Mean Corpuscular Volume 93.1 Mean Corpuscular 29.1 Hemoglobin Mean Corpuscular 31.3 L Hemoglobin Concent Red Cell Distribution 15.0 H Width Platelet Count 124 L Mean Platelet Volume 11.8 H Immature Granulocytes % 0.700 H Neutrophils % 91.9 H Lymphocytes % 2.4 L Monocytes % 4.7 Eosinophils % 0.1 Basophils % 0.2 Nucleated Red Blood 0.0 Cells % Immature Granulocytes # 0.150 H Neutrophils # 19.7 H Lymphocytes # 0.5 L Monocytes # 1.0 H Eosinophils # 0.0 Basophils # 0.0 Nucleated Red Blood 0.0 Cells # Sodium Level 150 H Potassium Level 4.3 Chloride Level 107 Carbon Dioxide Level 35 H Anion Gap 8 Blood Urea Nitrogen 116 H Creatinine 1.20 H Glucose Level 99 Calcium Level 8.0 L Phosphorus Level 4.6 Magnesium Level 2.6 H Albumin 2.5 L Test 07/01/19 08:20 07/01/19 12:53 Bedside Glucose 86 118 Exam/Review of Systems Exam Vitals Vital Signs Date Temp Pulse Resp B/P (MAP) Pulse Ox O2 O2 Flow FiO2 Time Delivery Rate 07/01/19 63 26 100/62 98 Mechanical 13:00 (75) Ventilator 07/01/19 97.7 12:00 07/01/19 80 12:00 Intake and Output 06/30/19 06/30/19 07/01/19 1515:00 23:00 07:00 IntakeIntake Total 175.99 ml 136.194 ml 232.824 ml OutputOutput Total 525 ml 580 ml 530 ml BalanceBalance -349.01 ml -443.806 ml -297.176 ml Results Results 24hrs Laboratory Tests Test 06/30/19 17:06 06/30/19 17:21 06/30/19 20:37 06/30/19 21:02 Bedside Glucose 51 L 126 55 L 177 Test 07/01/19 00:55 07/01/19 01:28 07/01/19 04:00 07/01/19 05:21 Bedside Glucose 69 L 144 93 White Blood Count 21.4 H Red Blood Count 3.33 L Hemoglobin 9.7 L Hematocrit 31.0 L Mean Corpuscular Volume 93.1 Mean Corpuscular 29.1 Hemoglobin Mean Corpuscular 31.3 L Hemoglobin Concent Red Cell Distribution 15.0 H Width Platelet Count 124 L Mean Platelet Volume 11.8 H Immature Granulocytes % 0.700 H Neutrophils % 91.9 H Lymphocytes % 2.4 L Monocytes % 4.7 Eosinophils % 0.1 Basophils % 0.2 Nucleated Red Blood 0.0 Cells % Immature Granulocytes # 0.150 H Neutrophils # 19.7 H Lymphocytes # 0.5 L Monocytes # 1.0 H Eosinophils # 0.0 Basophils # 0.0 Nucleated Red Blood 0.0 Cells # Sodium Level 150 H Potassium Level 4.3 Chloride Level 107 Carbon Dioxide Level 35 H Anion Gap 8 Blood Urea Nitrogen 116 H Creatinine 1.20 H Glucose Level 99 Calcium Level 8.0 L Phosphorus Level 4.6 Magnesium Level 2.6 H Albumin 2.5 L Test 07/01/19 08:20 07/01/19 12:53 Bedside Glucose 86 118 Medications Medication Current Medications IV Flush (NS 3 ml) 3 ml PER PROTOCOL IV ; Start 06/10/19 at 12:00 Ondansetron HCl (Zofran Inj) 4 mg Q6H PRN IV NAUSEA/VOMITING; Start 06/10/19 at 12:00 Acetaminophen (Tylenol Tab) 650 mg Q6H PRN PO .PAIN 1-3 OR TEMP Last administered on 06/13/19at 15:52; Admin Dose 650 MG; Start 06/10/19 at 12:00 Acetaminophen/ Hydrocodone Bitart ([place] (5/325)) 1 tab Q6H PRN PO .PAIN 4-6; Start 06/10/19 at 12:00 Morphine Sulfate (morphine) 2 mg Q4H PRN IV .PAIN 7-10 Last administered on 06/15/19at 16:57; Admin Dose 2 MG; Start 06/10/19 at 12:00 Amiodarone HCl (Cordarone) 100 mg DAILY GTB Last administered on 07/01/19 09:05; Admin Dose 100 MG; Start 06/11/19 at 09:00 Atorvastatin Calcium (Lipitor) 20 mg QHS GTB Last administered on 06/29/19 20:20; Admin Dose 20 MG; Start 06/10/19 at 21:00 Levetiracetam (Keppra Liquid) 500 mg BID GTB Last administered on 07/01/19 09:04; Admin Dose 500 MG; Start 06/10/19 at 21:00 Olanzapine (Zyprexa) 5 mg DAILY GTB Last administered on 07/01/19 09:04; Admin Dose 5 MG; Start 06/11/19 at 09:00 Polyethylene Glycol (Miralax) 17 gm DAILY GTB Last administered on 07/01/19at 09 :05; Admin Dose 17 GM; Start 06/11/19 at 09:00 Miscellaneous Information 1 ea NOTE XX ; Start 06/10/19 at 14:00 Glucose (Glutose) 15 gm Q15M PRN PO DECREASED GLUCOSE; Start 06/10/19 at 14:00 Glucose (Glutose) 22.5 gm Q15M PRN PO DECREASED GLUCOSE; Start 06/10/19 at 14:00 Dextrose (D50w Syringe) 25 ml Q15M PRN IV DECREASED GLUCOSE Last administered on 06/30/19at 17:14; Admin Dose 25 ML; Start 06/10/19 at 14:00 Dextrose (D50w Syringe) 50 ml Q15M PRN IV DECREASED GLUCOSE Last administered on 07/01/19at 00:58; Admin Dose 50 ML; Start 06/10/19 at 14:00 Glucagon (Glucagen) 1 mg Q15M PRN IM DECREASED GLUCOSE; Start 06/10/19 at 14:00 Glucose (Glutose) 15 gm Q15M PRN BUCCAL DECREASED GLUCOSE; Start 06/10/19 at 14:00 IV Flush (NS 10 ml) 10 ml [id number] PRN IV Line Patency; Start 06/10/19 at 16:00 Fluvoxamine Maleate (Fluvoxamine Maleate) 25 mg DAILY GTB Last administered on 07/01/19at 09:04; Admin Dose 25 MG; Start 06/11/19 at 09:00 Aspirin (Aspirin) 81 mg DAILY PEG Last administered on 07/01/19at 09:04; Admin Dose 81 MG; Start 06/11/19 at 09:00 Heparin Sodium (Porcine) (Heparin (5000 Units/1ml)) 5,000 unit Q8 SC Last administered on 06/14/19at 06:01; Admin Dose 5,000 UNIT; Start 06/11/19 at 14:00; Status Hold Ipratropium [place] (Atrovent 0.02% (Neb)) 0.5 mg Q4H RESP THERAPY PRN HHN SH ORTNESS OF BREATH; Start 06/12/19 at 10:00 Levalbuterol (Xopenex Neb) 1.25 mg Q4H RESP THERAPY PRN HHN shortness of breath; Start 06/12/19 at 10:00 Fentanyl 100 ml @ 2.5 mls/hr TITRATE IV Last administered on 07/01/19 06:26; Admin Dose 10 MLS/HR; Start 06/12/19 at 10:00 Levalbuterol (Xopenex Hfa) 4 puff Q6H RESP THERAPY INH Last administered on 07/01/19 07:48; Admin Dose 4 PUFF; Start 06/12/19 at 20:00 Ipratropium [place] (Atrovent Hfa) 4 puff Q6H RESP THERAPY INH Last administered on 07/01/19 07:47; Admin Dose 4 PUFF; Start 06/12/19 at 20:00 Docusate Sodium (Colace Liquid Cup) 100 mg BID GTB Last administered on 07/01/19 09:04; Admin Dose 100 MG; Start 06/14/19 at 12:30 Insulin Aspart (Novolog Insulin Pen) NOVOLOG *MILD* ALGORI... Q4 SC Last administered on 06/29/19 09:22; Admin Dose 1 UNIT; Start 06/16/19 at 21:00 Insulin Glargine (Lantus) 15 units DAILY@0800 SC Last administered on 07/01/19 13:01; Admin Dose 15 UNITS; Start 06/18/19 at 08:00 Propofol 100 ml @ 1.656 mls/ hr Q12H IV Last administered on 07/01/19 01:08; Admin Dose 6.624 MLS/HR; Start 06/18/19 at 10:00 Lactobacillus Acidophilus/ Rhamnosus (Culturelle) 1 cap TID PO Last administered on 07/01/19 12:54; Admin Dose 1 CAP; Start 06/18/19 at 21:00 Eye Lubricant (Artificial Tears Oph) 2 drop QID BOTH EYES Last administered on 07/01/19 12:54; Admin Dose 2 DROP; Start 06/23/19 at 09:30 Eye Lubricant (Akwa Oint) 1 applic Q6 BOTH EYES Last administered on 07/01/19 12:55; Admin Dose 1 APPLIC; Start 06/23/19 at 12:00 Potassium Chloride (Potassium Chloride Pwd/Soln) 20 meq PER PROTOCOL PRN GTB POTASSIUM REPLACEMENT PROTOCOL Last administered on 06/25/19at 09:35; Admin Dose 20 MEQ; Start 06/21/19 at 09:30 Potassium Chloride (Potassium Chloride Pwd/Soln) 30 meq PER PROTOCOL PRN GTB POTASSIUM REPLACEMENT PROTOCOL Last administered on 06/27/19at 21:06; Admin Dose 30 MEQ; Start 06/21/19 at 09:30 Potassium Chloride (Potassium Chloride Pwd/Soln) 40 meq PER PROTOCOL PRN GTB POTASSIUM REPLACEMENT PROTOCOL Last administered on 06/30/19at 08:33; Admin Dose 40 MEQ; Start 06/21/19 at 09:30 Hydrocortisone (Solu-Cortef) 20 mg Q8 IV Last administered on 07/01/19 05:19; Admin Dose 20 MG; Start 06/27/19 at 14:00 OMID JENNINGS Jul 01, 2019 14:02
--- NOTE | 2019-07-01 15:34 | PN ---
Date/Time of Note Date/Time of Note DATE: 07/01/19 TIME: 15:28 Assessment/Plan VTE Prophylaxis Risk score (from Nsg)>0 risk: 11 SCD applied (from Nsg): Yes Pharmacological prophylaxis: NA/contraindicated Pharm contraindication: anticoag not tolerated Lines/Catheters IV Catheter Type (from Nrsg): PICC Line Central line still needed: Yes Urinary Cath still in place: Yes Reason Cath still needed: terminal illness/intractable pain Assessment/Plan Assessment/Plan 1. Acute hypoxic respiratory failure, ARDS secondary to sepsis - Had a long discussion with son, Ghassan, who is spoke person for family. Does not want trach and will plan for terminal extubation and comfort measures but requesting a day or so to talk with shovel loader operator and friends since not ready at this time - Pulm on board and appreciate recommendations - wean down vent settings as able. 2. Multifocal pneumonia - Sputum cx noted with MRSA and Bridget - ID on board and appreciate recommendations 3. Abdominal distension - KUB noted and US with small ascites - most likely secondary to anasarca. 4. Atrial fibrillation with RVR- resolved - back in sinus rhythm - Cardiology consultation appreciated 5. Non-ST elevated VT - Cardiology consultation appreciated and will continue current medications - Very mild elevation - continue aspirin and statin 6. Thrombocytopenia-resolving - Very likely due to septic shock - Fibrinogen is elevated, unlikely DIC 7. Anemia of chronic disease - no need for transfusions at this time 8. Chronic dysphasia - Patient has PEG tube 9. Diabetes mellitus - continue on Lantus and ISS - sugars controlled 10. Chronic encephalopathy - CT of the brain initially showed alarming findings however there appears to be a mixup with patient's name, patient's actual name is Trey Roberts, [id number]. Neurosurgeon was initially consulted for possible brain bleed and other findings however when comparing to the patient's actual chart in 2013, neurosurgeon reviewed the CT and MRI and found a similar findings with no acute emergent change. - Monitor closely, patient appears to be at baseline 11. Dyslipidemia - Continue home meds 12. Mood disorder - Continue home meds 13. Chronic kidney disease - nephrology consultation appreciated 14. Failure to thrive - now DNR per families request 15. Anasarca - developing FLOYD so Bumex on hold 16. Disposition - Continue on vent support in ICU. Discussed with son plans for comfort care but asked for a couple days to talk to shovel loader operator and friends >45 minutes of critical care time spent with patient Result Diagram: 07/01/19 0400 07/01/19 0400 Results 24hrs Laboratory Tests Test 06/30/19 17:06 06/30/19 17:21 06/30/19 20:37 06/30/19 21:02 Bedside Glucose 51 L 126 55 L 177 Test 07/01/19 00:55 07/01/19 01:28 07/01/19 04:00 07/01/19 05:21 Bedside Glucose 69 L 144 93 White Blood Count 21.4 H Red Blood Count 3.33 L Hemoglobin 9.7 L Hematocrit 31.0 L Mean Corpuscular Volume 93.1 Mean Corpuscular 29.1 Hemoglobin Mean Corpuscular 31.3 L Hemoglobin Concent Red Cell Distribution 15.0 H Width Platelet Count 124 L Mean Platelet Volume 11.8 H Immature Granulocytes % 0.700 H Neutrophils % 91.9 H Lymphocytes % 2.4 L Monocytes % 4.7 Eosinophils % 0.1 Basophils % 0.2 Nucleated Red Blood 0.0 Cells % Immature Granulocytes # 0.150 H Neutrophils # 19.7 H Lymphocytes # 0.5 L Monocytes # 1.0 H Eosinophils # 0.0 Basophils # 0.0 Nucleated Red Blood 0.0 Cells # Sodium Level 150 H Potassium Level 4.3 Chloride Level 107 Carbon Dioxide Level 35 H Anion Gap 8 Blood Urea Nitrogen 116 H Creatinine 1.20 H Glucose Level 99 Calcium Level 8.0 L Phosphorus Level 4.6 Magnesium Level 2.6 H Albumin 2.5 L Test 07/01/19 08:20 07/01/19 12:53 Bedside Glucose 86 118 Subjective 24 Hr Interval Summary Free Text/Dictation Patient remains intubated and sedated. no acute overnight changes Exam/Review of Systems Exam Vitals Vital Signs Date Temp Pulse Resp B/P (MAP) Pulse Ox O2 O2 Flow FiO2 Time Delivery Rate 07/01/19 63 26 100/62 98 Mechanical 13:00 (75) Ventilator 07/01/19 97.7 12:00 07/01/19 80 12:00 Intake and Output 06/30/19 06/30/19 07/01/19 1515:00 23:00 07:00 IntakeIntake Total 175.99 ml 136.194 ml 232.824 ml OutputOutput Total 525 ml 580 ml 530 ml BalanceBalance -349.01 ml -443.806 ml -297.176 ml Exam General: Patient is intubated, sedated Neck: Supple, edematous Respiratory: Coarse to auscultation bilaterally. no wheezing Cardiovascular: Regular rate and rhythm, no obvious murmurs Gastrointestinal: soft, protuberant, non-tender to palpation, bowel sounds heard. PEG in place Neurological: Moves all extremities spontaneously to noxious stimuli Skin: No new skin lesions Ext: gross anasarca UE and LE b/l Results Results 24hrs Laboratory Tests Test 06/30/19 17:06 06/30/19 17:21 06/30/19 20:37 06/30/19 21:02 Bedside Glucose 51 L 126 55 L 177 Test 07/01/19 00:55 07/01/19 01:28 07/01/19 04:00 07/01/19 05:21 Bedside Glucose 69 L 144 93 White Blood Count 21.4 H Red Blood Count 3.33 L Hemoglobin 9.7 L Hematocrit 31.0 L Mean Corpuscular Volume 93.1 Mean Corpuscular 29.1 Hemoglobin Mean Corpuscular 31.3 L Hemoglobin Concent Red Cell Distribution 15.0 H Width Platelet Count 124 L Mean Platelet Volume 11.8 H Immature Granulocytes % 0.700 H Neutrophils % 91.9 H Lymphocytes % 2.4 L Monocytes % 4.7 Eosinophils % 0.1 Basophils % 0.2 Nucleated Red Blood 0.0 Cells % Immature Granulocytes # 0.150 H Neutrophils # 19.7 H Lymphocytes # 0.5 L Monocytes # 1.0 H Eosinophils # 0.0 Basophils # 0.0 Nucleated Red Blood 0.0 Cells # Sodium Level 150 H Potassium Level 4.3 Chloride Level 107 Carbon Dioxide Level 35 H Anion Gap 8 Blood Urea Nitrogen 116 H Creatinine 1.20 H Glucose Level 99 Calcium Level 8.0 L Phosphorus Level 4.6 Magnesium Level 2.6 H Albumin 2.5 L Test 07/01/19 08:20 07/01/19 12:53 Bedside Glucose 86 118 Medications Medication Current Medications IV Flush (NS 3 ml) 3 ml PER PROTOCOL IV ; Start 06/10/19 at 12:00 Ondansetron HCl (Zofran Inj) 4 mg Q6H PRN IV NAUSEA/VOMITING; Start 06/10/19 at 12:00 Acetaminophen (Tylenol Tab) 650 mg Q6H PRN PO .PAIN 1-3 OR TEMP Last administered on 06/13/19 15:52; Admin Dose 650 MG; Start 06/10/19 at 12:00 Acetaminophen/ Hydrocodone Bitart ([place] (5/325)) 1 tab Q6H PRN PO .PAIN 4-6; Start 06/10/19 at 12:00 Morphine Sulfate (morphine) 2 mg Q4H PRN IV .PAIN 7-10 Last administered on 06/15/19 16:57; Admin Dose 2 MG; Start 06/10/19 at 12:00 Amiodarone HCl (Cordarone) 100 mg DAILY GTB Last administered on 07/01/19 09:05; Admin Dose 100 MG; Start 06/11/19 at 09:00 Atorvastatin Calcium (Lipitor) 20 mg QHS GTB Last administered on 06/29/19 20:20; Admin Dose 20 MG; Start 06/10/19 at 21:00 Levetiracetam (Keppra Liquid) 500 mg BID GTB Last administered on 07/01/19 09:04; Admin Dose 500 MG; Start 06/10/19 at 21:00 Olanzapine (Zyprexa) 5 mg DAILY GTB Last administered on 07/01/19 09:04; Admin Dose 5 MG; Start 06/11/19 at 09:00 Polyethylene Glycol (Miralax) 17 gm DAILY GTB Last administered on 07/01/19 09:05; Admin Dose 17 GM; Start 06/11/19 at 09:00 Miscellaneous Information 1 ea NOTE XX ; Start 06/10/19 at 14:00 Glucose (Glutose) 15 gm Q15M PRN PO DECREASED GLUCOSE; Start 06/10/19 at 14:00 Glucose (Glutose) 22.5 gm Q15M PRN PO DECREASED GLUCOSE; Start 06/10/19 at 14:00 Dextrose (D50w Syringe) 25 ml Q15M PRN IV DECREASED GLUCOSE Last administered on 06/30/19at 17:14; Admin Dose 25 ML; Start 06/10/19 at 14:00 Dextrose (D50w Syringe) 50 ml Q15M PRN IV DECREASED GLUCOSE Last administered on 07/01/19 00:58; Admin Dose 50 ML; Start 06/10/19 at 14:00 Glucagon (Glucagen) 1 mg Q15M PRN IM DECREASED GLUCOSE; Start 06/10/19 at 14:00 Glucose (Glutose) 15 gm Q15M PRN BUCCAL DECREASED GLUCOSE; Start 06/10/19 at 14:00 IV Flush (NS 10 ml) 10 ml [id number] PRN IV Line Patency; Start 06/10/19 at 16:00 Fluvoxamine Maleate (Fluvoxamine Maleate) 25 mg DAILY GTB Last administered on 07/01/19 09:04; Admin Dose 25 MG; Start 06/11/19 at 09:00 Aspirin (Aspirin) 81 mg DAILY PEG Last administered on 07/01/19 09:04; Admin Dose 81 MG; Start 06/11/19 at 09:00 Heparin Sodium (Porcine) (Heparin (5000 Units/1ml)) 5,000 unit Q8 SC Last administered on 06/14/19 06:01; Admin Dose 5,000 UNIT; Start 06/11/19 at 14:00; Status Hold Ipratropium [place] (Atrovent 0.02% (Neb)) 0.5 mg Q4H RESP THERAPY PRN HHN SHORTNESS OF BREATH; Start 06/12/19 at 10:00 Levalbuterol (Xopenex Neb) 1.25 mg Q4H RESP THERAPY PRN HHN shortness of breath; Start 06/12/19 at 10:00 Fentanyl 100 ml @ 2.5 mls/hr TITRATE IV Last administered on 07/01/19 06:26; Admin Dose 10 MLS/HR; Start 06/12/19 at 10:00 Levalbuterol (Xopenex Hfa) 4 puff Q6H RESP THERAPY INH Last administered on 07/01/19 13:59; Admin Dose 4 PUFF; Start 06/12/19 at 20:00 Ipratropium [place] (Atrovent Hfa) 4 puff Q6H RESP THERAPY INH Last administered on 07/01/19 13:59; Admin Dose 4 PUFF; Start 06/12/19 at 20:00 Docusate Sodium (Colace Liquid Cup) 100 mg BID GTB Last administered on 07/01/19 09:04; Admin Dose 100 MG; Start 06/14/19 at 12:30 Insulin Aspart (Novolog Insulin Pen) NOVOLOG *MILD* ALGORI... Q4 SC Last administered on 06/29/19 09:22; Admin Dose 1 UNIT; Start 06/16/19 at 21:00 Insulin Glargine (Lantus) 15 units DAILY@0800 SC Last administered on 07/01/19 13:01; Admin Dose 15 UNITS; Start 06/18/19 at 08:00 Propofol 100 ml @ 1.656 mls/ hr Q12H IV Last administered on 07/01/19 01:08; Admin Dose 6.624 MLS/HR; Start 06/18/19 at 10:00 Lactobacillus Acidophilus/ Rhamnosus (Culturelle) 1 cap TID PO Last administered on 07/01/19 12:54; Admin Dose 1 CAP; Start 06/18/19 at 21:00 Eye Lubricant (Artificial Tears Oph) 2 drop QID BOTH EYES Last administered on 07/01/19 12:54; Admin Dose 2 DROP; Start 06/23/19 at 09:30 Eye Lubricant (Akwa Oint) 1 applic Q6 BOTH EYES Last administered on 07/01/19 12:55; Admin Dose 1 APPLIC; Start 06/23/19 at 12:00 Potassium Chloride (Potassium Chloride Pwd/Soln) 20 meq PER PROTOCOL PRN GTB POTASSIUM REPLACEMENT PROTOCOL Last administered on 06/25/19 09:35; Admin Dose 20 MEQ; Start 06/21/19 at 09:30 Potassium Chloride (Potassium Chloride Pwd/Soln) 30 meq PER PROTOCOL PRN GTB POTASSIUM REPLACEMENT PROTOCOL Last administered on 06/27/19 21:06; Admin Dose 30 MEQ; Start 06/21/19 at 09:30 Potassium Chloride (Potassium Chloride Pwd/Soln) 40 meq PER PROTOCOL PRN GTB POTASSIUM REPLACEMENT PROTOCOL Last administered on 06/30/19 08:33; Admin Dose 40 MEQ; Start 06/21/19 at 09:30 Hydrocortisone (Solu-Cortef) 20 mg Q8 IV Last administered on 07/01/19 14:02; Admin Dose 20 MG; Start 06/27/19 at 14:00 SHENG DONNELLY MD Jul 01, 2019 15:34
[2019-07-01] MEDS: ATORVASTATIN 20 MG TAB GTB SCH (21:28)
[2019-07-02] VITALS (37 sets, daily range): BP systolic 91–145; BP diastolic 54–94; PULSE 64–103; RESP 13–36
[2019-07-02] MEDS: INSULIN ASPART [NOVOLOG] 3 ML PEN SC SCH ×6 (01:00→20:36)
[2019-07-02] MEDS: IPRATROPIUM (HFA) 12.9 GM INHALER INH SCH ×4 (01:25→19:40)
[2019-07-02] MEDS: LEVALBUTEROL (HFA) 15 GM INHALER INH SCH ×4 (01:25→19:39)
[2019-07-02] MEDS: OCULAR LUBRICANT 3.5 GM OPH OINT BOTH EYES SCH ×4 (02:44→16:58)
[2019-07-02] MEDS: DEXTROSE 50% 50 ML SYRINGE IV PRN (02:45)
[2019-07-02] MEDS: HYDROCORTISONE 100 MG INJ IV SCH ×3 (05:29→20:35)
[2019-07-02] MEDS: PROPOFOL 100 ML IV SCH ×2 (05:30→20:32)
[2019-07-02] MEDS: FENTAnyl (DRIP) 1000 mcg/100mL 100 ML IV SCH ×2 (05:42→15:52)
[2019-07-02] MEDS: DOCUSATE SODIUM 10 MG/ML (10ML CUP) GTB SCH ×2 (08:14→20:32)
[2019-07-02] MEDS: POLYETHYLENE GLYCOL 17 GM PACKET GTB SCH (08:14)
[2019-07-02] MEDS: OLANZAPINE 5 MG TAB GTB SCH (08:14)
[2019-07-02] MEDS: FLUVOXAMINE MALEATE 25 MG TABLET GTB SCH (08:14)
[2019-07-02] MEDS: LEVETIRACETAM (100 MG/ML) 5ML CUP GTB SCH ×2 (08:14→20:32)
[2019-07-02] MEDS: POTASSIUM CHLORIDE 20 MEQ POWDER FOR ORAL SOLN GTB PRN (08:14)
[2019-07-02] MEDS: ARTIFICIAL TEARS 15 ML OPH BOTH EYES SCH ×4 (08:14→20:33)
[2019-07-02] MEDS: AMIODARONE 200 MG TAB GTB SCH (08:15)
[2019-07-02] MEDS: LACTOBACILLUS RHAMNOSUS CAP PO SCH ×3 (08:15→20:32)
[2019-07-02] MEDS: ASPIRIN 81 MG TAB PEG SCH (08:16)
[2019-07-02] MEDS: BALSAM PERU/CASTOR OIL 60 GM TUBE TOP SCH (08:16)
[2019-07-02] MEDS: INSULIN GLARGINE [LANTus] (100 UNITS/ML) SYG SC SCH (08:31)
--- NOTE | 2019-07-02 09:24 | CONS ---
Assessment/Plan Assessment/Plan Assessment/Plan (Daily) Ventilator setting; assist control of 26, pressure controlled, PEEP of 10, 80% FiO2. Patient is currently on fentanyl 100 mics per hour, propofol 20 mics per kilogram per minute. Assessment and recommendations; 1. Patient with history of dementia admitted with severe bilateral pneumonia with ARDS without any interval clinical improvement despite very aggressive treatment regimen. 2. History of seizures. 3. Anemia and thrombocytopenia. 4. Mild elevation in serum creatinine. 5. History of cardiac arrhythmia. Currently in sinus rhythm. 6. History of diabetes. Continue current supportive care. Patient's family member to arrive from out of state and will likely decide for palliative care. Overall prognosis is very poor. Consultation Date/Type/Reason Admit Date/Time Jun 10, 2019 at 12:38 Initial Consult Date 06/11/19 Type of Consult Pulmonary/critical care Patient is an 84-year-old [place] lady who was transferred to to the hospital from retirement with hypoxemia. Upon evaluation patient is been diagnosed with sepsis due to pneumonia. Patient has advanced dementia and is unable to give any history by herself whatsoever. Patient however is appearing tachypneic. Past medical history; 1. History of chronic atrial fibrillation. 2. Advanced dementia. 3. History of G-tube placement. 4. History of diabetes. 5. History of hypertension. Medications; reviewed. Allergies; none. Social history, family history, occupational history is are not available. Review of systems; unable to be obtained. General exam; elderly woman, on BiPAP. Noncommunicative. Tachypneic. Requesting Provider: MALINI GOMEZ Date/Time of Note DATE: 07/02/19 TIME: 09:22 24 HR Interval Summary Free Text/Dictation Patient's condition is critical. Remains profoundly hypoxemic. General exam; elderly woman, orally intubated, sedated, currently in no distress. Exam/Review of Systems Exam Vitals Vital Signs Date Temp Pulse Resp B/P (MAP) Pulse Ox O2 O2 Flow FiO2 Time Delivery Rate 07/02/19 82 28 127/72 93 Mechanical 09:00 (90) Ventilator 07/02/19 80 08:00 07/02/19 98.3 08:00 Intake and Output 07/01/19 07/01/19 07/02/19 1515:00 23:00 07:00 IntakeIntake Total 652.992 ml 492.872 ml 332.824 ml OutputOutput Total 435 ml 380 ml 375 ml BalanceBalance 217.992 ml 112.872 ml -42.176 ml Exam H ENT exam; supple neck, no JVD. No lymphadenopathy. Midline trachea. No thyromegaly. Patient has fair dentition. No neck masses. Pupils are small bilaterally. Chest exam; diminished breath sound bilaterally with bilateral crackles. S1-S2 audible, no murmurs. Regular rhythm. Abdomen exam; soft, no organomegaly. G-tube in place. Bowel sounds are audible. Extremity exam; 2+ generalized anasarca. ROLLER PICKER exam; patient is sedated. Results Result Diagram: 07/02/19 0400 07/02/19 0400 Results 24hrs Laboratory Tests Test 07/01/19 12:53 07/01/19 17:14 07/01/19 21:21 07/02/19 02:43 Bedside Glucose 118 97 74 66 L Test 07/02/19 03:12 07/02/19 04:00 07/02/19 05:32 07/02/19 07:55 Bedside Glucose 164 122 113 White Blood Count 22.3 H Red Blood Count 2.95 L Hemoglobin 8.8 L Hematocrit 28.0 L Mean Corpuscular Volume 94.9 Mean Corpuscular 29.8 Hemoglobin Mean Corpuscular 31.4 L Hemoglobin Concent Red Cell Distribution 14.9 H Width Platelet Count 115 L Mean Platelet Volume 11.8 H Immature Granulocytes % 0.600 H Neutrophils % 94.3 H Lymphocytes % 1.7 L Monocytes % 3.2 Eosinophils % 0.1 Basophils % 0.1 Nucleated Red Blood 0.0 Cells % Immature Granulocytes # 0.140 H Neutrophils # 21.0 H Lymphocytes # 0.4 L Monocytes # 0.7 Eosinophils # 0.0 Basophils # 0.0 Nucleated Red Blood 0.0 Cells # Sodium Level 147 H Potassium Level 3.7 Chloride Level 106 Carbon Dioxide Level 37 H Anion Gap 4 L Blood Urea Nitrogen 110 H Creatinine 1.16 H Glucose Level 158 Calcium Level 7.9 L Phosphorus Level 4.7 Magnesium Level 2.7 H Albumin 2.2 L Medications Medication Current Medications IV Flush (NS 3 ml) 3 ml PER PROTOCOL IV ; Start 06/10/19 at 12:00 Ondansetron HCl (Zofran Inj) 4 mg Q6H PRN IV NAUSEA/VOMITING; Start 06/10/19 at 12:00 Acetaminophen (Tylenol Tab) 650 mg Q6H PRN PO .PAIN 1-3 OR TEMP Last administered on 06/13/19 15:52; Admin Dose 650 MG; Start 06/10/19 at 12:00 Acetaminophen/ Hydrocodone Bitart ([place] (5/325)) 1 tab Q6H PRN PO .PAIN 4-6; Start 06/10/19 at 12:00 Morphine Sulfate (morphine) 2 mg Q4H PRN IV .PAIN 7-10 Last administered on 06/15/19 16:57; Admin Dose 2 MG; Start 06/10/19 at 12:00 Amiodarone HCl (Cordarone) 100 mg DAILY GTB Last administered on 07/02/19 08:15; Admin Dose 100 MG; Start 06/11/19 at 09:00 Atorvastatin Calcium (Lipitor) 20 mg QHS GTB Last administered on 07/01/19 21:28; Admin Dose 20 MG; Start 06/10/19 at 21:00 Levetiracetam (Keppra Liquid) 500 mg BID GTB Last administered on 07/02/19 08:14; Admin Dose 500 MG; Start 06/10/19 at 21:00 Olanzapine (Zyprexa) 5 mg DAILY GTB Last administered on 07/02/19 08:14; Admin Dose 5 MG; Start 06/11/19 at 09:00 Polyethylene Glycol (Miralax) 17 gm DAILY GTB Last administered on 07/02/19 08:14; Admin Dose 17 GM; Start 06/11/19 at 09:00 Miscellaneous Information 1 ea NOTE XX ; Start 06/10/19 at 14:00 Glucose (Glutose) 15 gm Q15M PRN PO DECREASED GLUCOSE; Start 06/10/19 at 14:00 Glucose (Glutose) 22.5 gm Q15M PRN PO DECREASED GLUCOSE; Start 06/10/19 at 14:00 Dextrose (D50w Syringe) 25 ml Q15M PRN IV DECREASED GLUCOSE Last administered on 06/30/19 17:14; Admin Dose 25 ML; Start 06/10/19 at 14:00 Dextrose (D50w Syringe) 50 ml Q15M PRN IV DECREASED GLUCOSE Last administered on 07/02/19 02:45; Admin Dose 50 ML; Start 06/10/19 at 14:00 Glucagon (Glucagen) 1 mg Q15M PRN IM DECREASED GLUCOSE; Start 06/10/19 at 14:00 Glucose (Glutose) 15 gm Q15M PRN BUCCAL DECREASED GLUCOSE; Start 06/10/19 at 14:00 IV Flush (NS 10 ml) 10 ml [id number] PRN IV Line Patency; Start 06/10/19 at 16:00 Fluvoxamine Maleate (Fluvoxamine Maleate) 25 mg DAILY GTB Last administered on 07/02/19 08:14; Admin Dose 25 MG; Start 06/11/19 at 09:00 Aspirin (Aspirin) 81 mg DAILY PEG Last administered on 07/02/19 08:16; Admin Dose 81 MG; Start 06/11/19 at 09:00 Heparin Sodium (Porcine) (Heparin (5000 Units/1ml)) 5,000 unit Q8 SC Last administered on 06/14/19 06:01; Admin Dose 5,000 UNIT; Start 06/11/19 at 14:00; Status Hold Ipratropium [place] (Atrovent 0.02% (Neb)) 0.5 mg Q4H RESP THERAPY PRN HHN SHORTNESS OF BREATH; Start 06/12/19 at 10:00 Levalbuterol (Xopenex Neb) 1.25 mg Q4H RESP THERAPY PRN HHN shortness of breath; Start 06/12/19 at 10:00 Fentanyl 100 ml @ 2.5 mls/hr TITRATE IV Last administered on 07/02/19 05:42; Admin Dose 10 MLS/HR; Start 06/12/19 at 10:00 Levalbuterol (Xopenex Hfa) 4 puff Q6H RESP THERAPY INH Last administered on 07/02/19 08:25; Admin Dose 4 PUFF; Start 06/12/19 at 20:00 Ipratropium [place] (Atrovent Hfa) 4 puff Q6H RESP THERAPY INH Last administered on 07/02/19 08:25; Admin Dose 4 PUFF; Start 06/12/19 at 20:00 Docusate Sodium (Colace Liquid Cup) 100 mg BID GTB Last administered on 07/02/19 08:14; Admin Dose 100 MG; Start 06/14/19 at 12:30 Insulin Aspart (Novolog Insulin Pen) NOVOLOG *MILD* ALGORI... Q4 SC Last administered on 06/29/19 09:22; Admin Dose 1 UNIT; Start 06/16/19 at 21:00 Insulin Glargine (Lantus) 15 units DAILY@0800 SC Last administered on 07/02/19 08:31; Admin Dose 15 UNITS; Start 06/18/19 at 08:00 Propofol 100 ml @ 1.656 mls/ hr Q12H IV Last administered on 07/02/19 05:30; Admin Dose 6.624 MLS/HR; Start 06/18/19 at 10:00 Lactobacillus Acidophilus/ Rhamnosus (Culturelle) 1 cap TID PO Last administered on 07/02/19 08:15; Admin Dose 1 CAP; Start 06/18/19 at 21:00 Eye Lubricant (Artificial Tears Oph) 2 drop QID BOTH EYES Last administered on 07/02/19 08:14; Admin Dose 2 DROP; Start 06/23/19 at 09:30 Eye Lubricant (Akwa Oint) 1 applic Q6 BOTH EYES Last administered on 07/02/19 05:30; Admin Dose 1 APPLIC; Start 06/23/19 at 12:00 Potassium Chloride (Potassium Chloride Pwd/Soln) 20 meq PER PROTOCOL PRN GTB POTASSIUM REPLACEMENT PROTOCOL Last administered on 07/02/19 08:14; Admin Dose 20 MEQ; Start 06/21/19 at 09:30 Potassium Chloride (Potassium Chloride Pwd/Soln) 30 meq PER PROTOCOL PRN GTB POTASSIUM REPLACEMENT PROTOCOL Last administered on 06/27/19 21:06; Admin Dose 30 MEQ; Start 06/21/19 at 09:30 Potassium Chloride (Potassium Chloride Pwd/Soln) 40 meq PER PROTOCOL PRN GTB POTASSIUM REPLACEMENT PROTOCOL Last administered on 06/30/19 08:33; Admin Dose 40 MEQ; Start 06/21/19 at 09:30 Hydrocortisone (Solu-Cortef) 20 mg Q8 IV Last administered on 07/02/19 05:29; Admin Dose 20 MG; Start 06/27/19 at 14:00 CHARAN LAUREANO Jul 02, 2019 09:24
--- NOTE | 2019-07-02 10:10 | PN ---
Date/Time of Note Date/Time of Note DATE: 07/02/19 TIME: 10:07 Assessment/Plan VTE Prophylaxis Risk score (from Nsg)>0 risk: 11 SCD applied (from Nsg): Yes Pharmacological prophylaxis: NA/contraindicated Pharm contraindication: anticoag not tolerated Lines/Catheters IV Catheter Type (from Nrsg): PICC Line Central line still needed: Yes Urinary Cath still in place: Yes Reason Cath still needed: terminal illness/intractable pain Assessment/Plan Assessment/Plan 1. Acute hypoxic respiratory failure, ARDS secondary to sepsis - Remains on mechanical ventilation - After discussion with sonGhassan, will proceed with terminal extubation and comfort measures but requesting some time to cope emotionally. - Pulm on board and appreciate recommendations - wean down vent settings as able. 2. Multifocal pneumonia - Sputum cx noted with MRSA and Bridget - ID on board and appreciate recommendations 3. Abdominal distension - KUB noted and US with small ascites - most likely secondary to anasarca. 4. Atrial fibrillation with RVR- resolved - back in sinus rhythm - Cardiology consultation appreciated 5. Non-ST elevated [place] - Cardiology consultation appreciated and will continue current medications - Very mild elevation - continue aspirin and statin 6. Thrombocytopenia- stable - Very likely due to septic shock - Fibrinogen is elevated, unlikely DIC 7. Anemia of chronic disease - no need for transfusions at this time 8. Chronic dysphasia - Patient has PEG tube 9. Diabetes mellitus - continue on Lantus and ISS - sugars controlled 10. Chronic encephalopathy - CT of the brain initially showed alarming findings however there appears to be a mixup with patient's name, patient's actual name is Trey Roberts, [id number]. Neurosurgeon was initially consulted for possible brain bleed and other findings however when comparing to the patient's actual chart in 2013, neurosurgeon reviewed the CT and MRI and found a similar findings with no acute emergent change. - Monitor closely, patient appears to be at baseline 11. Dyslipidemia - Continue home meds 12. Mood disorder - Continue home meds 13. Chronic kidney disease - nephrology consultation appreciated 14. Failure to thrive - now DNR per families request 15. Anasarca - developing FLOYD so Bumex on hold 16. Disposition - Continue on vent support in ICU until son decides to proceed with terminal extubation and comfort measures. >30 minutes of critical care time spent with patient Result Diagram: 07/02/19 0400 07/02/19 0400 Results 24hrs Laboratory Tests Test 07/01/19 12:53 07/01/19 17:14 07/01/19 21:21 07/02/19 02:43 Bedside Glucose 118 97 74 66 L Test 07/02/19 03:12 07/02/19 04:00 07/02/19 05:32 07/02/19 07:55 Bedside Glucose 164 122 113 White Blood Count 22.3 H Red Blood Count 2.95 L Hemoglobin 8.8 L Hematocrit 28.0 L Mean Corpuscular Volume 94.9 Mean Corpuscular 29.8 Hemoglobin Mean Corpuscular 31.4 L Hemoglobin Concent Red Cell Distribution 14.9 H Width Platelet Count 115 L Mean Platelet Volume 11.8 H Immature Granulocytes % 0.600 H Neutrophils % 94.3 H Lymphocytes % 1.7 L Monocytes % 3.2 Eosinophils % 0.1 Basophils % 0.1 Nucleated Red Blood 0.0 Cells % Immature Granulocytes # 0.140 H Neutrophils # 21.0 H Lymphocytes # 0.4 L Monocytes # 0.7 Eosinophils # 0.0 Basophils # 0.0 Nucleated Red Blood 0.0 Cells # Sodium Level 147 H Potassium Level 3.7 Chloride Level 106 Carbon Dioxide Level 37 H Anion Gap 4 L Blood Urea Nitrogen 110 H Creatinine 1.16 H Glucose Level 158 Calcium Level 7.9 L Phosphorus Level 4.7 Magnesium Level 2.7 H Albumin 2.2 L Subjective 24 Hr Interval Summary Free Text/Dictation Patient remains intubated and sedated. No acute overnight events. Exam/Review of Systems Exam Vitals Vital Signs Date Temp Pulse Resp B/P (MAP) Pulse Ox O2 O2 Flow FiO2 Time Delivery Rate 07/02/19 82 28 127/72 93 Mechanical 09:00 (90) Ventilator 07/02/19 80 08:00 07/02/19 98.3 08:00 Intake and Output 07/01/19 07/01/19 07/02/19 1515:00 23:00 07:00 IntakeIntake Total 652.992 ml 492.872 ml 332.824 ml OutputOutput Total 435 ml 380 ml 375 ml BalanceBalance 217.992 ml 112.872 ml -42.176 ml Exam General: Patient is intubated, sedated Neck: Supple, edematous Respiratory: Diminished with coarse to auscultation bilaterally. no wheezing Cardiovascular: Regular rate and rhythm, no obvious murmurs Gastrointestinal: soft, protuberant, non-tender to palpation, bowel sounds heard. PEG in place Neurological: Moves all extremities spontaneously to noxious stimuli Skin: No new skin lesions Ext: gross anasarca UE and LE b/l Results Results 24hrs Laboratory Tests Test 07/01/19 12:53 07/01/19 17:14 07/01/19 21:21 07/02/19 02:43 Bedside Glucose 118 97 74 66 L Test 07/02/19 03:12 07/02/19 04:00 07/02/19 05:32 07/02/19 07:55 Bedside Glucose 164 122 113 White Blood Count 22.3 H Red Blood Count 2.95 L Hemoglobin 8.8 L Hematocrit 28.0 L Mean Corpuscular Volume 94.9 Mean Corpuscular 29.8 Hemoglobin Mean Corpuscular 31.4 L Hemoglobin Concent Red Cell Distribution 14.9 H Width Platelet Count 115 L Mean Platelet Volume 11.8 H Immature Granulocytes % 0.600 H Neutrophils % 94.3 H Lymphocytes % 1.7 L Monocytes % 3.2 Eosinophils % 0.1 Basophils % 0.1 Nucleated Red Blood 0.0 Cells % Immature Granulocytes # 0.140 H Neutrophils # 21.0 H Lymphocytes # 0.4 L Monocytes # 0.7 Eosinophils # 0.0 Basophils # 0.0 Nucleated Red Blood 0.0 Cells # Sodium Level 147 H Potassium Level 3.7 Chloride Level 106 Carbon Dioxide Level 37 H Anion Gap 4 L Blood Urea Nitrogen 110 H Creatinine 1.16 H Glucose Level 158 Calcium Level 7.9 L Phosphorus Level 4.7 Magnesium Level 2.7 H Albumin 2.2 L Medications Medication Current Medications IV Flush (NS 3 ml) 3 ml PER PROTOCOL IV ; Start 06/10/19 at 12:00 Ondansetron HCl (Zofran Inj) 4 mg Q6H PRN IV NAUSEA/VOMITING; Start 06/10/19 at 12:00 Acetaminophen (Tylenol Tab) 650 mg Q6H PRN PO .PAIN 1-3 OR TEMP Last administered on 06/13/19at 15:52; Admin Dose 650 MG; Start 06/10/19 at 12:00 Acetaminophen/ Hydrocodone Bitart ([place] (5/325)) 1 tab Q6H PRN PO .PAIN 4-6; Start 06/10/19 at 12:00 Morphine Sulfate (morphine) 2 mg Q4H PRN IV .PAIN 7-10 Last administered on 06/15/19at 16:57; Admin Dose 2 MG; Start 06/10/19 at 12:00 Amiodarone HCl (Cordarone) 100 mg DAILY GTB Last administered on 07/02/19 08:15; Admin Dose 100 MG; Start 06/11/19 at 09:00 Atorvastatin Calcium (Lipitor) 20 mg QHS GTB Last administered on 07/01/19 21:28; Admin Dose 20 MG; Start 06/10/19 at 21:00 Levetiracetam (Keppra Liquid) 500 mg BID GTB Last administered on 07/02/19 08: 14; Admin Dose 500 MG; Start 06/10/19 at 21:00 Olanzapine (Zyprexa) 5 mg DAILY GTB Last administered on 07/02/19 08:14; Admin Dose 5 MG; Start 06/11/19 at 09:00 Polyethylene Glycol (Miralax) 17 gm DAILY GTB Last administered on 07/02/19 08:14; Admin Dose 17 GM; Start 06/11/19 at 09:00 Miscellaneous Information 1 ea NOTE XX ; Start 06/10/19 at 14:00 Glucose (Glutose) 15 gm Q15M PRN PO DECREASED GLUCOSE; Start 06/10/19 at 14:00 Glucose (Glutose) 22.5 gm Q15M PRN PO DECREASED GLUCOSE; Start 06/10/19 at 14:00 Dextrose (D50w Syringe) 25 ml Q15M PRN IV DECREASED GLUCOSE Last administered on 06/30/19at 17:14; Admin Dose 25 ML; Start 06/10/19 at 14:00 Dextrose (D50w Syringe) 50 ml Q15M PRN IV DECREASED GLUCOSE Last administered on 07/02/19at 02:45; Admin Dose 50 ML; Start 06/10/19 at 14:00 Glucagon (Glucagen) 1 mg Q15M PRN IM DECREASED GLUCOSE; Start 06/10/19 at 14:00 Glucose (Glutose) 15 gm Q15M PRN BUCCAL DECREASED GLUCOSE; Start 06/10/19 at 14:00 IV Flush (NS 10 ml) 10 ml [id number] PRN IV Line Patency; Start 06/10/19 at 16:00 Fluvoxamine Maleate (Fluvoxamine Maleate) 25 mg DAILY GTB Last administered on 07/02/19 08:14; Admin Dose 25 MG; Start 06/11/19 at 09:00 Aspirin (Aspirin) 81 mg DAILY PEG Last administered on 07/02/19 08:16; Admin Dose 81 MG; Start 06/11/19 at 09:00 Heparin Sodium (Porcine) (Heparin (5000 Units/1ml)) 5,000 unit Q8 SC Last administered on 06/14/19 06:01; Admin Dose 5,000 UNIT; Start 06/11/19 at 14:00; Status Hold Ipratropium [place] (Atrovent 0.02% (Neb)) 0.5 mg Q4H RESP THERAPY PRN HHN SHORTNESS OF BREATH; Start 06/12/19 at 10:00 Levalbuterol (Xopenex Neb) 1.25 mg Q4H RESP THERAPY PRN HHN shortness of breath; Start 06/12/19 at 10:00 Fentanyl 100 ml @ 2.5 mls/hr TITRATE IV Last administered on 07/02/19 05:42; Admin Dose 10 MLS/HR; Start 06/12/19 at 10:00 Levalbuterol (Xopenex Hfa) 4 puff Q6H RESP THERAPY INH Last administered on 07/02/19 08:25; Admin Dose 4 PUFF; Start 06/12/19 at 20:00 Ipratropium [place] (Atrovent Hfa) 4 puff Q6H RESP THERAPY INH Last administered on 07/02/19 08:25; Admin Dose 4 PUFF; Start 06/12/19 at 20:00 Docusate Sodium (Colace Liquid Cup) 100 mg BID GTB Last administered on 07/02/19 08:14; Admin Dose 100 MG; Start 06/14/19 at 12:30 Insulin Aspart (Novolog Insulin Pen) NOVOLOG *MILD* ALGORI... Q4 SC Last administered on 06/29/19 09:22; Admin Dose 1 UNIT; Start 06/16/19 at 21:00 Insulin Glargine (Lantus) 15 units DAILY@0800 SC Last administered on 07/02/19 08:31; Admin Dose 15 UNITS; Start 06/18/19 at 08:00 Propofol 100 ml @ 1.656 mls/ hr Q12H IV Last administered on 07/02/19 05:30; Admin Dose 6.624 MLS/HR; Start 06/18/19 at 10:00 Lactobacillus Acidophilus/ Rhamnosus (Culturelle) 1 cap TID PO Last administered on 07/02/19 08:15; Admin Dose 1 CAP; Start 06/18/19 at 21:00 Eye Lubricant (Artificial Tears Oph) 2 drop QID BOTH EYES Last administered on 07/02/19 08:14; Admin Dose 2 DROP; Start 06/23/19 at 09:30 Eye Lubricant ([place]wa Oint) 1 applic Q6 BOTH EYES Last administered on 07/02/19 0 5:30; Admin Dose 1 APPLIC; Start 06/23/19 at 12:00 Potassium Chloride (Potassium Chloride Pwd/Soln) 20 meq PER PROTOCOL PRN GTB POTASSIUM REPLACEMENT PROTOCOL Last administered on 07/02/19 08:14; Admin Dose 20 MEQ; Start 06/21/19 at 09:30 Potassium Chloride (Potassium Chloride Pwd/Soln) 30 meq PER PROTOCOL PRN GTB POTASSIUM REPLACEMENT PROTOCOL Last administered on 06/27/19 21:06; Admin Dose 30 MEQ; Start 06/21/19 at 09:30 Potassium Chloride (Potassium Chloride Pwd/Soln) 40 meq PER PROTOCOL PRN GTB POTASSIUM REPLACEMENT PROTOCOL Last administered on 06/30/19 08:33; Admin Dose 40 MEQ; Start 06/21/19 at 09:30 Hydrocortisone (Solu-Cortef) 20 mg Q8 IV Last administered on 07/02/19 05:29; Admin Dose 20 MG; Start 06/27/19 at 14:00 SHENG DONNELLY MD Jul 02, 2019 10:10
--- NOTE | 2019-07-02 12:04 | CONS ---
Assessment/Plan Assessment/Plan Assessment/Plan (Daily) 1. acute Hypernatremia due to severe dehydration -resolved 2. acute Hyperkalemia due to FLOYD - Resolved 3. acute kidney injury on CKD III due to ATN from sepsis and Prerenal azotemia 4 . Septic shock due to multifocal PNA and UTI 5. Acute hypoxic respiratory failure due to PNA and Septic shock - Failed BIPAP- Intubated on 06/12/19 , 6. H/O severe dementia 7. H/O HTN 8. H/O HL 9. SNF resident 10. acute on chronic encephalopathy 11 h/o Dysphagia S/p G tube placement 12. Hypocalcemia 13. UTI with Urine cx growing ESBL Klebsiella Plan: BUN/Cr rising to 116/1.2, K 4.3, Na 150 Poor candidate for dialysis due to age, comorbidiites, consider palliative care follow up and comfort care off all abx now, ID following, plan is to repeat Cultures Ventilator Management as per pulmonary -- not doing well, still requiring high PEEP DNR code status, consider Palliative care consult with comfort care if family agrees will follow up Consultation Date/Type/Reason Admit Date/Time Jun 10, 2019 at 12:38 Initial Consult Date 06/11/19 Type of Consult NEPHROLOGY Requesting Provider: MALINI GOMEZ Date/Time of Note DATE: 07/02/19 TIME: 12:04 Exam/Review of Systems Exam Vitals Vital Signs Date Temp Pulse Resp B/P (MAP) Pulse Ox O2 O2 Flow FiO2 Time Delivery Rate 07/02/19 82 28 127/72 93 Mechanical 09:00 (90) Ventilator 07/02/19 80 08:00 07/02/19 98.3 08:00 Intake and Output 07/01/19 07/01/19 07/02/19 1515:00 23:00 07:00 IntakeIntake Total 652.992 ml 492.872 ml 332.824 ml OutputOutput Total 435 ml 380 ml 375 ml BalanceBalance 217.992 ml 112.872 ml -42.176 ml Exam Constitutional: non-verbal, other (intubated, unresponsive) Respiratory: normal air movement Cardiovascular: regular rate and rhythm Gastrointestinal: soft, distended Musculoskeletal: nl extremities to inspection Extremities: normal pulses, edema (diffuse anasarca) Neurological: lethargic, unresponsive Skin: other (diffuse anasarca) Results Result Diagram: 8/7/19 0400 07/02/19 0400 Results 24hrs Laboratory Tests Test 07/01/19 12:53 07/01/19 17:14 07/01/19 21:21 07/02/19 02:43 Bedside Glucose 118 97 74 66 L Test 07/02/19 03:12 07/02/19 04:00 07/02/19 05:32 07/02/19 07:55 Bedside Glucose 164 122 113 White Blood Count 22.3 H Red Blood Count 2.95 L Hemoglobin 8.8 L Hematocrit 28.0 L Mean Corpuscular Volume 94.9 Mean Corpuscular 29.8 Hemoglobin Mean Corpuscular 31.4 L Hemoglobin Concent Red Cell Distribution 14.9 H Width Platelet Count 115 L Mean Platelet Volume 11.8 H Immature Granulocytes % 0.600 H Neutrophils % 94.3 H Lymphocytes % 1.7 L Monocytes % 3.2 Eosinophils % 0.1 Basophils % 0.1 Nucleated Red Blood 0.0 Cells % Immature Granulocytes # 0.140 H Neutrophils # 21.0 H Lymphocytes # 0.4 L Monocytes # 0.7 Eosinophils # 0.0 Basophils # 0.0 Nucleated Red Blood 0.0 Cells # Sodium Level 147 H Potassium Level 3.7 Chloride Level 106 Carbon Dioxide Level 37 H Anion Gap 4 L Blood Urea Nitrogen 110 H Creatinine 1.16 H Glucose Level 158 Calcium Level 7.9 L Phosphorus Level 4.7 Magnesium Level 2.7 H Albumin 2.2 L Medications Medication Current Medications IV Flush (NS 3 ml) 3 ml PER PROTOCOL IV ; Start 06/10/19 at 12:00 Ondansetron HCl (Zofran Inj) 4 mg Q6H PRN IV NAUSEA/VOMITING; Start 06/10/19 at 12:00 Acetaminophen (Tylenol Tab) 650 mg Q6H PRN PO .PAIN 1-3 OR TEMP Last administered on 06/13/19at 15:52; Admin Dose 650 MG; Start 06/10/19 at 12:00 Acetaminophen/ Hydrocodone Bitart ([place] (5/325)) 1 tab Q6H PRN PO .PAIN 4-6; Start 06/10/19 at 12:00 Morphine Sulfate (morphine) 2 mg Q4H PRN IV .PAIN 7-10 Last administered on 06/15/19at 16:57; Admin Dose 2 MG; Start 06/10/19 at 12:00 Amiodarone HCl (Cordarone) 100 mg DAILY GTB Last administered on 07/02/19 08:15; Admin Dose 100 MG; Start 06/11/19 at 09:00 Atorvastatin Calcium (Lipitor) 20 mg QHS GTB Last administered on 07/01/19 21:28; Admin Dose 20 MG; Start 06/10/19 at 21:00 Levetiracetam (Keppra Liquid) 500 mg BID GTB Last administered on 07/02/19 08:14; Admin Dose 500 MG; Start 06/10/19 at 21:00 Olanzapine (Zyprexa) 5 mg DAILY GTB Last administered on 07/02/19 08:14; Admin Dose 5 MG; Start 06/11/19 at 09:00 Polyethylene Glycol (Miralax) 17 gm DAILY GTB Last administered on 07/02/19 08:14; Admin Dose 17 GM; Start 06/11/19 at 09:00 Miscellaneous Information 1 ea NOTE XX ; Start 06/10/19 at 14:00 Glucose (Glutose) 15 gm Q15M PRN PO DECREASED GLUCOSE; Start 06/10/19 at 14:00 Glucose (Glutose) 22.5 gm Q15M PRN PO DECREASED GLUCOSE; Start 06/10/19 at 14: 00 Dextrose (D50w Syringe) 25 ml Q15M PRN IV DECREASED GLUCOSE Last administered on 06/30/19at 17:14; Admin Dose 25 ML; Start 06/10/19 at 14:00 Dextrose (D50w Syringe) 50 ml Q15M PRN IV DECREASED GLUCOSE Last administered on 07/02/19at 02:45; Admin Dose 50 ML; Start 06/10/19 at 14:00 Glucagon (Glucagen) 1 mg Q15M PRN IM DECREASED GLUCOSE; Start 06/10/19 at 14:00 Glucose (Glutose) 15 gm Q15M PRN BUCCAL DECREASED GLUCOSE; Start 06/10/19 at 14:00 IV Flush (NS 10 ml) 10 ml [id number] PRN IV Line Patency; Start 06/10/19 at 16:00 Fluvoxamine Maleate (Fluvoxamine Maleate) 25 mg DAILY GTB Last administered on 07/02/19 08:14; Admin Dose 25 MG; Start 06/11/19 at 09:00 Aspirin (Aspirin) 81 mg DAILY PEG Last administered on 07/02/19 08:16; Admin Dose 81 MG; Start 06/11/19 at 09:00 Heparin Sodium (Porcine) (Heparin (5000 Units/1ml)) 5,000 unit Q8 SC Last administered on 06/14/19 06:01; Admin Dose 5,000 UNIT; Start 06/11/19 at 14:00; Status Hold Ipratropium [place] (Atrovent 0.02% (Neb)) 0.5 mg Q4H RESP THERAPY PRN HHN SHORTNESS OF BREATH; Start 06/12/19 at 10:00 Levalbuterol (Xopenex Neb) 1.25 mg Q4H RESP THERAPY PRN HHN shortness of breath; Start 06/12/19 at 10:00 Fentanyl 100 ml @ 2.5 mls/hr TITRATE IV Last administered on 07/02/19 05:42; Admin Dose 10 MLS/HR; Start 06/12/19 at 10:00 Levalbuterol (Xopenex Hfa) 4 puff Q6H RESP THERAPY INH Last administered on 07/02/19 08:25; Admin Dose 4 PUFF; Start 06/12/19 at 20:00 Ipratropium [place] (Atrovent Hfa) 4 puff Q6H RESP THERAPY INH Last administered on 07/02/19 08:25; Admin Dose 4 PUFF; Start 06/12/19 at 20:00 Docusate Sodium (Colace Liquid Cup) 100 mg BID GTB Last administered on 07/02/19 08:14; Admin Dose 100 MG; Start 06/14/19 at 12:30 Insulin Aspart (Novolog Insulin Pen) NOVOLOG *MILD* ALGORI... Q4 SC Last administered on 06/29/19 09:22; Admin Dose 1 UNIT; Start 06/16/19 at 21:00 Insulin Glargine (Lantus) 15 units DAILY@0800 SC Last administered on 07/02/19 08:31; Admin Dose 15 UNITS; Start 06/18/19 at 08:00 Propofol 100 ml @ 1.656 mls/ hr Q12H IV Last administered on 07/02/19 05:30; Admin Dose 6.624 MLS/HR; Start 06/18/19 at 10:00 Lactobacillus Acidophilus/ Rhamnosus (Culturelle) 1 cap TID PO Last admin istered on 07/02/19 08:15; Admin Dose 1 CAP; Start 06/18/19 at 21:00 Eye Lubricant (Artificial Tears Oph) 2 drop QID BOTH EYES Last administered on 07/02/19 08:14; Admin Dose 2 DROP; Start 06/23/19 at 09:30 Eye Lubricant (Akwa Oint) 1 applic Q6 BOTH EYES Last administered on 07/02/19 05:30; Admin Dose 1 APPLIC; Start 06/23/19 at 12:00 Potassium Chloride (Potassium Chloride Pwd/Soln) 20 meq PER PROTOCOL PRN GTB POTASSIUM REPLACEMENT PROTOCOL Last administered on 07/02/19 08:14; Admin Dose 20 MEQ; Start 06/21/19 at 09:30 Potassium Chloride (Potassium Chloride Pwd/Soln) 30 meq PER PROTOCOL PRN GTB POTASSIUM REPLACEMENT PROTOCOL Last administered on 06/27/19 21:06; Admin Dose 30 MEQ; Start 06/21/19 at 09:30 Potassium Chloride (Potassium Chloride Pwd/Soln) 40 meq PER PROTOCOL PRN GTB POTASSIUM REPLACEMENT PROTOCOL Last administered on 06/30/19 08:33; Admin Dose 40 MEQ; Start 06/21/19 at 09:30 Hydrocortisone (Solu-Cortef) 20 mg Q8 IV Last administered on 07/02/19 05:29; Admin Dose 20 MG; Start 06/27/19 at 14:00 GERMAN FELIX MD Jul 02, 2019 12:04
--- NOTE | 2019-07-02 14:35 | CONS ---
Assessment/Plan Assessment/Plan Hospital Course (Demo Recall) SUBJECTIVE: No events patient is noncommunicative in no distress afebrile. WBC 22.3 platelets 150 neutrophils 94.3 BUN 110 creatinine 1.16 Microbiology: Repeat urine culture growing yeast, blood cultures negative INDWELLINGS: Endotracheal tube, PEG, Dial, PICC line. PHYSICAL EXAMINATION: GENERAL: Chronically ill-appearing, elderly woman in no distress. HEENT: Head atraumatic, normocephalic. NECK: Supple. Trachea midline. CHEST: Rise symmetrical. Breath sounds diminished to bases. HEART: S1, S2. ABDOMEN: Distended. Bowel tones are hypoactive. EXTREMITIES: Without cyanosis. SKIN: Patient has severe anasarca. ASSESSMENT: 1. Ongoing leukocytosis, possibly steroid-induced, 2. Acute respiratory failure 3. Healthcare associated pneumonia 4. Fungal UTI 5. Dysphagia 6. Atrial fibrillation and non-ST elevation NC 9. Acute kidney insufficiency Plan: Clinically unchanged, add antifungal coverage Consultation Date/Type/Reason Admit Date/Time Jun 10, 2019 at 12:38 Initial Consult Date 06/11/19 Type of Consult id Requesting Provider: MALINI GOMEZ Date/Time of Note DATE: 07/02/19 TIME: 14:34 Exam/Review of Systems Exam Vitals Vital Signs Date Temp Pulse Resp B/P (MAP) Pulse Ox O2 O2 Flow FiO2 Time Delivery Rate 07/02/19 82 26 111/59 94 Mechanical 13:00 (76) Ventilator 07/02/19 98.2 12:00 07/02/19 80 11:20 Intake and Output 07/01/19 07/01/19 07/02/19 1515:00 23:00 07:00 IntakeIntake Total 652.992 ml 492.872 ml 332.824 ml OutputOutput Total 435 ml 380 ml 375 ml BalanceBalance 217.992 ml 112.872 ml -42.176 ml Results Result Diagram: 07/02/19 0400 07/02/19 0400 Results 24hrs Laboratory Tests Test 07/01/19 17:14 07/01/19 21:21 07/02/19 02:43 07/02/19 03:12 Bedside Glucose 97 74 66 L 164 Test 07/02/19 04:00 07/02/19 05:32 07/02/19 07:55 07/02/19 13:13 White Blood Count 22.3 H Red Blood Count 2.95 L Hemoglobin 8.8 L Hematocrit 28.0 L Mean Corpuscular Volume 94.9 Mean Corpuscular 29.8 Hemoglobin Mean Corpuscular 31.4 L Hemoglobin Concent Red Cell Distribution 14.9 H Width Platelet Count 115 L Mean Platelet Volume 11.8 H Immature Granulocytes % 0.600 H Neutrophils % 94.3 H Lymphocytes % 1.7 L Monocytes % 3.2 Eosinophils % 0.1 Basophils % 0.1 Nucleated Red Blood 0.0 Cells % Immature Granulocytes # 0.140 H Neutrophils # 21.0 H Lymphocytes # 0.4 L Monocytes # 0.7 Eosinophils # 0.0 Basophils # 0.0 Nucleated Red Blood 0.0 Cells # Sodium Level 147 H Potassium Level 3.7 Chloride Level 106 Carbon Dioxide Level 37 H Anion Gap 4 L Blood Urea Nitrogen 110 H Creatinine 1.16 H Glucose Level 158 Calcium Level 7.9 L Phosphorus Level 4.7 Magnesium Level 2.7 H Albumin 2.2 L Bedside Glucose 122 113 115 Medications Medication Current Medications IV Flush (NS 3 ml) 3 ml PER PROTOCOL IV ; Start 06/10/19 at 12:00 Ondansetron HCl (Zofran Inj) 4 mg Q6H PRN IV NAUSEA/VOMITING; Start 06/10/19 at 12:00 Acetaminophen (Tylenol Tab) 650 mg Q6H PRN PO .PAIN 1-3 OR TEMP Last administ ered on 06/13/19at 15:52; Admin Dose 650 MG; Start 06/10/19 at 12:00 Acetaminophen/ Hydrocodone Bitart ([place] (5/325)) 1 tab Q6H PRN PO .PAIN 4-6; Start 06/10/19 at 12:00 Morphine Sulfate (morphine) 2 mg Q4H PRN IV .PAIN 7-10 Last administered on 06/15/19at 16:57; Admin Dose 2 MG; Start 06/10/19 at 12:00 Amiodarone HCl (Cordarone) 100 mg DAILY GTB Last administered on 07/02/19at 08:15; Admin Dose 100 MG; Start 06/11/19 at 09:00 Atorvastatin Calcium (Lipitor) 20 mg QHS GTB Last administered on 07/01/19at 21:28; Admin Dose 20 MG; Start 06/10/19 at 21:00 Levetiracetam (Keppra Liquid) 500 mg BID GTB Last administered on 07/02/19 08:14; Admin Dose 500 MG; Start 06/10/19 at 21:00 Olanzapine (Zyprexa) 5 mg DAILY GTB Last administered on 07/02/19 08:14; Admin Dose 5 MG; Start 06/11/19 at 09:00 Polyethylene Glycol (Miralax) 17 gm DAILY GTB Last administered on 07/02/19 08:14; Admin Dose 17 GM; Start 06/11/19 at 09:00 Miscellaneous Information 1 ea NOTE XX ; Start 06/10/19 at 14:00 Glucose (Glutose) 15 gm Q15M PRN PO DECREASED GLUCOSE; Start 06/10/19 at 14:00 Glucose (Glutose) 22.5 gm Q15M PRN PO DECREASED GLUCOSE; Start 06/10/19 at 14:00 Dextrose (D50w Syringe) 25 ml Q15M PRN IV DECREASED GLUCOSE Last administered on 06/30/19at 17:14; Admin Dose 25 ML; Start 06/10/19 at 14:00 Dextrose (D50w Syringe) 50 ml Q15M PRN IV DECREASED GLUCOSE Last administered on 07/02/19at 02:45; Admin Dose 50 ML; Start 06/10/19 at 14:00 Glucagon (Glucagen) 1 mg Q15M PRN IM DECREASED GLUCOSE; Start 06/10/19 at 14:00 Glucose (Glutose) 15 gm Q15M PRN BUCCAL DECREASED GLUCOSE; Start 06/10/19 at 14:00 IV Flush (NS 10 ml) 10 ml [id number] PRN IV Line Patency; Start 06/10/19 at 16:00 Fluvoxamine Maleate (Fluvoxamine Maleate) 25 mg DAILY GTB Last administered on 07/02/19 08:14; Admin Dose 25 MG; Start 06/11/19 at 09:00 Aspirin (Aspirin) 81 mg DAILY PEG Last administered on 07/02/19 08:16; Admin Dose 81 MG; Start 06/11/19 at 09:00 Heparin Sodium (Porcine) (Heparin (5000 Units/1ml)) 5,000 unit Q8 SC Last administered on 06/14/19at 06:01; Admin Dose 5,000 UNIT; Start 06/11/19 at 14:00; Status Hold Ipratropium [place] (Atrovent 0.02% (Neb)) 0.5 mg Q4H RESP THERAPY PRN HHN SHORTNESS OF BREATH; Start 06/12/19 at 10:00 Levalbuterol (Xopenex Neb) 1.25 mg Q4H RESP THERAPY PRN HHN shortness of breath; Start 06/12/19 at 10:00 Fentanyl 100 ml @ 2.5 mls/hr TITRATE IV Last administered on 07/02/19 05:42; Admin Dose 10 MLS/HR; Start 06/12/19 at 10:00 Levalbuterol (Xopenex Hfa) 4 puff Q6H RESP THERAPY INH Last administered on 07/02/19 14:21; Admin Dose 4 PUFF; Start 06/12/19 at 20:00 Ipratropium [place] (Atrovent Hfa) 4 puff Q6H RESP THERAPY INH Last administered on 07/02/19 14:22; Admin Dose 4 PUFF; Start 06/12/19 at 20:00 Docusate Sodium (Colace Liquid Cup) 100 mg BID GTB Last administered on 07/02/19 08:14; Admin Dose 100 MG; Start 06/14/19 at 12:30 Insulin Aspart (Novolog Insulin Pen) NOVOLOG *MILD* ALGORI... Q4 SC Last administered on 06/29/19 09:22; Admin Dose 1 UNIT; Start 06/16/19 at 21:00 Insulin Glargine (Lantus) 15 units DAILY@0800 SC Last administered on 07/02/19 08:31; Admin Dose 15 UNITS; Start 06/18/19 at 08:00 Propofol 100 ml @ 1.656 mls/ hr Q12H IV Last administered on 07/02/19 05:30; Admin Dose 6.624 MLS/HR; Start 06/18/19 at 10:00 Lactobacillus Acidophilus/ Rhamnosus (Culturelle) 1 cap TID PO Last administered on 07/02/19 13:08; Admin Dose 1 CAP; Start 06/18/19 at 21:00 Eye Lubricant (Artificial Tears Oph) 2 drop QID BOTH EYES Last administered on 07/02/19 13:08; Admin Dose 2 DROP; Start 06/23/19 at 09:30 Eye Lubricant (Akwa Oint) 1 applic Q6 BOTH EYES Last administered on 07/02/19 13:09; Admin Dose 1 APPLIC; Start 06/23/19 at 12:00 Potassium Chloride (Potassium Chloride Pwd/Soln) 20 meq PER PROTOCOL PRN GTB POTASSIUM REPLACEMENT PROTOCOL Last administered on 07/02/19 08:14; Admin Dose 20 MEQ; Start 06/21/19 at 09:30 Potassium Chloride (Potassium Chloride Pwd/Soln) 30 meq PER PROTOCOL PRN GTB POTASSIUM REPLACEMENT PROTOCOL Last administered on 06/27/19 21:06; Admin Dose 30 MEQ; Start 06/21/19 at 09:30 Potassium Chloride (Potassium Chloride Pwd/Soln) 40 meq PER PROTOCOL PRN GTB POTASSIUM REPLACEMENT PROTOCOL Last administered on 06/30/19 08:33; Admin Dose 40 MEQ; Start 06/21/19 at 09:30 Hydrocortisone (Solu-Cortef) 20 mg Q8 IV Last administered on 07/02/19 13:08; Admin Dose 20 MG; Start 06/27/19 at 14:00 JACKIE BRUNNER NP Jul 02, 2019 14:35
[2019-07-02] MEDS ORDERED: CASPOFUNGIN 70 MG in SOD CHLORIDE 0.9% 250 ML IVPB ONE (15:30)
[2019-07-02] MEDS: ATORVASTATIN 20 MG TAB GTB SCH (20:32)
[2019-07-03] VITALS (51 sets, daily range): BP systolic 106–142; BP diastolic 64–112; PULSE 66–99; RESP 10–33
[2019-07-03] MEDS: LEVALBUTEROL (HFA) 15 GM INHALER INH SCH ×4 (01:43→20:00)
[2019-07-03] MEDS: IPRATROPIUM (HFA) 12.9 GM INHALER INH SCH ×4 (01:43→20:00)
[2019-07-03] MEDS: OCULAR LUBRICANT 3.5 GM OPH OINT BOTH EYES SCH ×4 (02:39→17:55)
[2019-07-03] MEDS: INSULIN ASPART [NOVOLOG] 3 ML PEN SC SCH ×6 (02:42→20:55)
[2019-07-03] MEDS: PROPOFOL 100 ML IV SCH ×4 (02:47→20:24)
[2019-07-03] MEDS: FENTAnyl (DRIP) 1000 mcg/100mL 100 ML IV SCH (02:48)
[2019-07-03] MEDS: HYDROCORTISONE 100 MG INJ IV SCH ×3 (05:03→22:36)
--- NOTE | 2019-07-03 08:38 | CONS ---
Assessment/Plan Assessment/Plan Assessment/Plan (Daily) Ventilator setting; AC of 24, pressure controlled, PEEP of 10, 80% FiO2. Patient is currently on fentanyl drip 100 mics per hour, propofol 30 mics per kilogram per minute. Assessment and recommendations; 1. Patient admitted with severe bilateral pneumonia with ARDS without interval improvement despite very aggressive antimicrobial regimen. 2. History of seizure disorder. 3. History of diabetes. 4. Anemia and thrombocytopenia. 5. Generalized anasarca. 6. History of dementia. 7. History of prior G-tube placement due to dysphagia. Continue current supportive care. Proptosis appears extremely poor. Awaiting for family to decide about possible palliative care. Consultation Date/Type/Reason Admit Date/Time Jun 10, 2019 at 12:38 Initial Consult Date 06/11/19 Type of Consult Pulmonary/critical care Patient is an 84-year-old [place] lady who was transferred to to the hospital from shelter with hypoxemia. Upon evaluation patient is been diagnosed with sepsis due to pneumonia. Patient has advanced dementia and is unable to give any history by herself whatsoever. Patient however is appearing tachypne ic. Past medical history; 1. History of chronic atrial fibrillation. 2. Advanced dementia. 3. History of G-tube placement. 4. History of diabetes. 5. History of hypertension. Medications; reviewed. Allergies; none. Social history, family history, occupational history is are not available. Review of systems; unable to be obtained. General exam; elderly woman, on BiPAP. Noncommunicative. Tachypneic. Requesting Provider: MALINI GOMEZ Date/Time of Note DATE: 07/03/19 TIME: 08:36 24 HR Interval Summary Free Text/Dictation Patient's condition remains critical. Remains profoundly hypoxemic. Patient however has remained hemodynamically stable. General exam; elderly woman, orally intubated, sedated, currently in no distress. Exam/Review of Systems Exam Vitals Vital Signs Date Temp Pulse Resp B/P (MAP) Pulse Ox O2 O2 Flow FiO2 Time Delivery Rate 07/03/19 72 21 106/67 98 Mechanical 06:00 (80) Ventilator 07/03/19 90 05:44 07/03/19 97.7 04:00 Intake and Output 07/02/19 07/02/19 07/03/19 1515:00 23:00 07:00 IntakeIntake Total 812.992 ml 1102.772 ml 799.3 ml OutputOutput Total 450 ml 370 ml 300 ml BalanceBalance 362.992 ml 732.772 ml 499.3 ml Exam H ENT exam; supple neck, no JVD. No lymphadenopathy. Midline trachea. No thyromegaly. Patient has fair dentition. Pupils are small bilaterally. Orally intubated. No neck masses. Chest exam; diminished breath sound bilaterally with bilateral crackles. S1-S2 audible, no murmurs. Regular rhythm. Abdomen exam; soft, no organomegaly. G-tube in place. Bowel sounds are audible. Extremity exam; 2+ generalized anasarca. [employer] exam; patient is sedated. Results Result Diagram: 07/03/19 0400 07/03/19 0400 Results 24hrs Laboratory Tests Test 07/02/19 13:13 07/02/19 16:57 07/02/19 20:36 07/03/19 02:38 Bedside Glucose 115 90 135 146 Test 07/03/19 04:00 07/03/19 05:02 White Blood Count 15.3 #H Red Blood Count 2.74 L Hemoglobin 8.2 L Hematocrit 27.0 L Mean Corpuscular Volume 98.5 Mean Corpuscular 29.9 Hemoglobin Mean Corpuscular 30.4 L Hemoglobin Concent Red Cell Distribution 15.1 H Width Platelet Count 111 L Mean Platelet Volume 11.8 H Immature Granulocytes % 0.900 H Neutrophils % 91.8 H Lymphocytes % 2.6 L Monocytes % 4.0 Eosinophils % 0.6 Basophils % 0.1 Nucleated Red Blood 0.0 Cells % Immature Granulocytes # 0.130 H Neutrophils # 14.0 H Lymphocytes # 0.4 L Monocytes # 0.6 Eosinophils # 0.1 Basophils # 0.0 Nucleated Red Blood 0.0 Cells # Sodium Level 145 H Potassium Level 3.9 Chloride Level 106 Carbon Dioxide Level 39 H Anion Gap 0 L Blood Urea Nitrogen 103 H Creatinine 1.09 H Glucose Level 138 Calcium Level 7.8 L Phosphorus Level 4.7 Magnesium Level 2.7 H Albumin 2.3 L Bedside Glucose 158 Medications Medication Current Medications IV Flush (NS 3 ml) 3 ml PER PROTOCOL IV ; Start 06/10/19 at 12:00 Ondansetron HCl (Zofran Inj) 4 mg Q6H PRN IV NAUSEA/VOMITING; Start 06/10/19 at 12:00 Acetaminophen (Tylenol Tab) 650 mg Q6H PRN PO .PAIN 1-3 OR TEMP Last administered on 06/13/19 15:52; Admin Dose 650 MG; Start 06/10/19 at 12:00 Acetaminophen/ Hydrocodone Bitart ([place] (5/325)) 1 tab Q6H PRN PO .PAIN 4-6; Start 06/10/19 at 12:00 Morphine Sulfate (morphine) 2 mg Q4H PRN IV .PAIN 7-10 Last administered on 06/15/19 16:57; Admin Dose 2 MG; Start 06/10/19 at 12:00 Amiodarone HCl (Cordarone) 100 mg DAILY GTB Last administered on 07/02/19 08:1 5; Admin Dose 100 MG; Start 06/11/19 at 09:00 Atorvastatin Calcium (Lipitor) 20 mg QHS GTB Last administered on 07/02/19 20:32; Admin Dose 20 MG; Start 06/10/19 at 21:00 Levetiracetam (Keppra Liquid) 500 mg BID GTB Last administered on 07/02/19 20:32; Admin Dose 500 MG; Start 06/10/19 at 21:00 Olanzapine (Zyprexa) 5 mg DAILY GTB Last administered on 07/02/19 08:14; Admin Dose 5 MG; Start 06/11/19 at 09:00 Polyethylene Glycol (Miralax) 17 gm DAILY GTB Last administered on 07/02/19 08:14; Admin Dose 17 GM; Start 06/11/19 at 09:00 Miscellaneous Information 1 ea NOTE XX ; Start 06/10/19 at 14:00 Glucose (Glutose) 15 gm Q15M PRN PO DECREASED GLUCOSE; Start 06/10/19 at 14:00 Glucose (Glutose) 22.5 gm Q15M PRN PO DECREASED GLUCOSE; Start 06/10/19 at 14:00 Dextrose (D50w Syringe) 25 ml Q15M PRN IV DECREASED GLUCOSE Last administered on 06/30/19 17:14; Admin Dose 25 ML; Start 06/10/19 at 14:00 Dextrose (D50w Syringe) 50 ml Q15M PRN IV DECREASED GLUCOSE Last administered on 07/02/19 02:45; Admin Dose 50 ML; Start 06/10/19 at 14:00 Glucagon (Glucagen) 1 mg Q15M PRN IM DECREASED GLUCOSE; Start 06/10/19 at 14:00 Glucose (Glutose) 15 gm Q15M PRN BUCCAL DECREASED GLUCOSE; Start 06/10/19 at 14:00 IV Flush (NS 10 ml) 10 ml [id number] PRN IV Line Patency; Start 06/10/19 at 16:00 Fluvoxamine Maleate (Fluvoxamine Maleate) 25 mg DAILY GTB Last administered on 07/02/19 08:14; Admin Dose 25 MG; Start 06/11/19 at 09:00 Aspirin (Aspirin) 81 mg DAILY PEG Last administered on 07/02/19 08:16; Admin Dose 81 MG; Start 06/11/19 at 09:00 Heparin Sodium (Porcine) (Heparin (5000 Units/1ml)) 5,000 unit Q8 SC Last administered on 06/14/19 06:01; Admin Dose 5,000 UNIT; Start 06/11/19 at 14:00; Status Hold Ipratropium [place] (Atrovent 0.02% (Neb)) 0.5 mg Q4H RESP THERAPY PRN HHN SHORTNESS OF BREATH; Start 06/12/19 at 10:00 Levalbuterol (Xopenex Neb) 1.25 mg Q4H RESP THERAPY PRN HHN shortness of breath; Start 06/12/19 at 10:00 Fentanyl 100 ml @ 2.5 mls/hr TITRATE IV Last administered on 07/03/19 02:48; Admin Dose 10 MLS/HR; Start 06/12/19 at 10:00 Levalbuterol (Xopenex Hfa) 4 puff Q6H RESP THERAPY INH Last administered on 07/03/19 07:12; Admin Dose 4 PUFF; Start 06/12/19 at 20:00 Ipratropium [place] (Atrovent Hfa) 4 puff Q6H RESP THERAPY INH Last administered on 07/03/19 07:12; Admin Dose 4 PUFF; Start 06/12/19 at 20:00 Docusate Sodium (Colace Liquid Cup) 100 mg BID GTB Last administered on 07/02/19 20:32; Admin Dose 100 MG; Start 06/14/19 at 12:30 Insulin Aspart (Novolog Insulin Pen) NOVOLOG *MILD* ALGORI... Q4 SC Last administered on 07/03/19 05:07; Admin Dose 1 UNIT; Start 06/16/19 at 21:00 Insulin Glargine (Lantus) 15 units DAILY@0800 SC Last administered on 07/02/19 08:31; Admin Dose 15 UNITS; Start 06/18/19 at 08:00 Propofol 100 ml @ 1.656 mls/ hr Q12H IV Last administered on 07/03/19 02:47; Admin Dose 9.936 MLS/HR; Start 06/18/19 at 10:00 Lactobacillus Acidophilus/ Rhamnosus (Culturelle) 1 cap TID PO Last administered on 07/02/19 20:32; Admin Dose 1 CAP; Start 06/18/19 at 21:00 Eye Lubricant (Artificial Tears Oph) 2 drop QID BOTH EYES Last administered on 07/02/19 20:33; Admin Dose 2 DROP; Start 06/23/19 at 09:30 Eye Lubricant (Akwa Oint) 1 applic Q6 BOTH EYES Last administered on 07/03/19 05:03; Admin Dose 1 APPLIC; Start 06/23/19 at 12:00 Potassium Chloride (Potassium Chloride Pwd/Soln) 20 meq PER PROTOCOL PRN GTB POTASSIUM REPLACEMENT PROTOCOL Last administered on 07/02/19 08:14; Admin Dose 20 MEQ; Start 06/21/19 at 09:30 Potassium Chloride (Potassium Chloride Pwd/Soln) 30 meq PER PROTOCOL PRN GTB POTASSIUM REPLACEMENT PROTOCOL Last administered on 06/27/19 21:06; Admin Dose 30 MEQ; Start 06/21/19 at 09:30 Potassium Chloride (Potassium Chloride Pwd/Soln) 40 meq PER PROTOCOL PRN GTB POTASSIUM REPLACEMENT PROTOCOL Last administered on 06/30/19 08:33; Admin Dose 40 MEQ; Start 06/21/19 at 09:30 Hydrocortisone (Solu-Cortef) 20 mg Q8 IV Last administered on 07/03/19 05:03; Admin Dose 20 MG; Start 06/27/19 at 14:00 Caspofungin 50 mg/ Sodium Chloride 250 ml @ 250 mls/hr Q24H IVPB ; Start 07/03/19 at 15:30 CHARAN LAUREANO Jul 03, 2019 08:38
[2019-07-03] MEDS: BALSAM PERU/CASTOR OIL 60 GM TUBE TOP SCH (09:00)
[2019-07-03] MEDS: LEVETIRACETAM (100 MG/ML) 5ML CUP GTB SCH ×2 (09:16→20:24)
[2019-07-03] MEDS: POLYETHYLENE GLYCOL 17 GM PACKET GTB SCH (09:16)
[2019-07-03] MEDS: AMIODARONE 200 MG TAB GTB SCH (09:17)
[2019-07-03] MEDS: LACTOBACILLUS RHAMNOSUS CAP PO SCH ×3 (09:17→20:24)
[2019-07-03] MEDS: DOCUSATE SODIUM 10 MG/ML (10ML CUP) GTB SCH ×2 (09:17→20:25)
[2019-07-03] MEDS: OLANZAPINE 5 MG TAB GTB SCH (09:17)
[2019-07-03] MEDS: ASPIRIN 81 MG TAB PEG SCH (09:17)
[2019-07-03] MEDS: FLUVOXAMINE MALEATE 25 MG TABLET GTB SCH (09:17)
[2019-07-03] MEDS: ARTIFICIAL TEARS 15 ML OPH BOTH EYES SCH ×4 (09:18→20:25)
[2019-07-03] MEDS: INSULIN GLARGINE [LANTus] (100 UNITS/ML) SYG SC SCH (09:26)
--- NOTE | 2019-07-03 10:00 | PN ---
Date/Time of Note Date/Time of Note DATE: 07/03/19 TIME: 09:54 Assessment/Plan VTE Prophylaxis Risk score (from Ns)>0 risk: 11 SCD applied (from Ns): Yes SCD contraindicated: low risk/ambulating Pharmacological prophylaxis: NA/contraindicated Pharm contraindication: anticoag not tolerated Lines/Catheters IV Catheter Type (from Nrs): PICC Line Central line still needed: Yes Urinary Cath still in place: Yes Reason Cath still needed: terminal illness/intractable pain Assessment/Plan Assessment/Plan 1. Acute hypoxic respiratory failure, ARDS secondary to sepsis - no changes overnight. still remains on mechanical ventilation at high O2 and PEEP - will touch base with son regarding proceeding with terminal extubation and comfort measures - Pulm on board and appreciate recommendations 2. Multifocal pneumonia - Sputum cx noted with MRSA and Bridget - ID on board and appreciate recommendations. Antifungal added 3. Abdominal distension - KUB noted and US with small ascites - most likely secondary to anasarca. 4. Atrial fibrillation with RVR- resolved - back in sinus rhythm - Cardiology consultation appreciated 5. Non-ST elevated [place] - Cardiology consultation appreciated and will continue current medications - Very mild elevation - continue aspirin and statin 6. Thrombocytopenia- stable - no need for transfusions at this time 7. Anemia of chronic disease - stable - no fatou bleeding appreciated 8. Chronic dysphasia - Patient has PEG tube 9. Diabetes mellitus - continue on Lantus and ISS - sugars controlled 10. Chronic encephalopathy - CT of the brain initially showed alarming findings however there appears to be a mixup with patient's name, patient's actual name is Trey Roberts, [id number]. Neurosurgeon was initially consulted for possible brain bleed and other findings however when comparing to the patient's actual chart in 2013, neurosurgeon reviewed the CT and MRI and found a similar findings with no acute emergent change. - Monitor closely, patient appears to be at baseline 11. Dyslipidemia - Continue home meds 12. Mood disorder - Continue home meds 13. Chronic kidney disease - nephrology consultation appreciated and renal function returning to baseline 14. Failure to thrive - now DNR per families request 15. Anasarca - diuretics held given elevated creatinine 16. Disposition - Will touch base with son regarding proceeding with terminal extubation and comfort measures. If not decision made, recommending bioethics >30 minutes of critical care time spent with patient Result Diagram: 07/03/190 07/03/190 Results 24hrs Laboratory Tests Test 07/02/19 13:13 07/02/19 16:57 07/02/19 20:36 07/03/19 02:38 Bedside Glucose 115 90 135 146 Test 07/03/19 04:00 07/03/19 05:02 07/03/19 09:20 White Blood Count 15.3 #H Red Blood Count 2.74 L Hemoglobin 8.2 L Hematocrit 27.0 L Mean Corpuscular Volume 98.5 Mean Corpuscular 29.9 Hemoglobin Mean Corpuscular 30.4 L Hemoglobin Concent Red Cell Distribution 15.1 H Width Platelet Count 111 L Mean Platelet Volume 11.8 H Immature Granulocytes % 0.900 H Neutrophils % 91.8 H Lymphocytes % 2.6 L Monocytes % 4.0 Eosinophils % 0.6 Basophils % 0.1 Nucleated Red Blood 0.0 Cells % Immature Granulocytes # 0.130 H Neutrophils # 14.0 H Lymphocytes # 0.4 L Monocytes # 0.6 Eosinophils # 0.1 Basophils # 0.0 Nucleated Red Blood 0.0 Cells # Sodium Level 145 H Potassium Level 3.9 Chloride Level 106 Carbon Dioxide Level 39 H Anion Gap 0 L Blood Urea Nitrogen 103 H Creatinine 1.09 H Glucose Level 138 Calcium Level 7.8 L Phosphorus Level 4.7 Magnesium Level 2.7 H Albumin 2.3 L Bedside Glucose 158 195 Subjective 24 Hr Interval Summary Free Text/Dictation Patient remains stable but still with high O2 requirement. No acute overnight events Exam/Review of Systems Exam Vitals Vital Signs Date Temp Pulse Resp B/P (MAP) Pulse Ox O2 O2 Flow FiO2 Time Delivery Rate 07/03/19 72 21 106/67 98 Mechanical 06:00 (80) Ventilator 07/03/19 90 05:44 07/03/19 97.7 04:00 Intake and Output 07/02/19 07/02/19 07/03/19 1515:00 23:00 07:00 IntakeIntake Total 812.992 ml 1102.772 ml 799.3 ml OutputOutput Total 450 ml 370 ml 300 ml BalanceBalance 362.992 ml 732.772 ml 499.3 ml Exam General: remains intubated, sedated Neck: Supple, edematous Respiratory: Coarse to auscultation bilaterally. no wheezing Cardiovascular: S1, S2, regular rate and rhythm, no obvious murmurs Gastrointestinal: soft, protuberant, non-tender to palpation, bowel sounds heard. PEG in place Neurological: Moves all extremities spontaneously to noxious stimuli Skin: No new skin lesions Ext: gross anasarca UE and LE b/l Results Results 24hrs Laboratory Tests Test 07/02/19 13:13 07/02/19 16:57 07/02/19 20:36 07/03/19 02:38 Bedside Glucose 115 90 135 146 Test 07/03/19 04:00 07/03/19 05:02 07/03/19 09:20 White Blood Count 15.3 #H Red Blood Count 2.74 L Hemoglobin 8.2 L Hematocrit 27.0 L Mean Corpuscular Volume 98.5 Mean Corpuscular 29.9 Hemoglobin Mean Corpuscular 30.4 L Hemoglobin Concent Red Cell Distribution 15.1 H Width Platelet Count 111 L Mean Platelet Volume 11.8 H Immature Granulocytes % 0.900 H Neutrophils % 91.8 H Lymphocytes % 2.6 L Monocytes % 4.0 Eosinophils % 0.6 Basophils % 0.1 Nucleated Red Blood 0.0 Cells % Immature Granulocytes # 0.130 H Neutrophils # 14.0 H Lymphocytes # 0.4 L Monocytes # 0.6 Eosinophils # 0.1 Basophils # 0.0 Nucleated Red Blood 0.0 Cells # Sodium Level 145 H Potassium Level 3.9 Chloride Level 106 Carbon Dioxide Level 39 H Anion Gap 0 L Blood Urea Nitrogen 103 H Creatinine 1.09 H Glucose Level 138 Calcium Level 7.8 L Phosphorus Level 4.7 Magnesium Level 2.7 H Albumin 2.3 L Bedside Glucose 158 195 Medications Medication Current Medications IV Flush (NS 3 ml) 3 ml PER PROTOCOL IV ; Start 06/10/19 at 12:00 Ondansetron HCl (Zofran Inj) 4 mg Q6H PRN IV NAUSEA/VOMITING; Start 06/10/19 at 12:00 Acetaminophen (Tylenol Tab) 650 mg Q6H PRN PO .PAIN 1-3 OR TEMP Last administered on 06/13/19at 15:52; Admin Dose 650 MG; Start 06/10/19 at 12:00 Acetaminophen/ Hydrocodone Bitart ([place] (5/325)) 1 tab Q6H PRN PO .PAIN 4-6; Start 06/10/19 at 12:00 Morphine Sulfate (morphine) 2 mg Q4H PRN IV .PAIN 7-10 Last administered on 06/15/19 16:57; Admin Dose 2 MG; Start 06/10/19 at 12:00 Amiodarone HCl (Cordarone) 100 mg DAILY GTB Last administered on 07/03/19 09:17; Admin Dose 100 MG; Start 06/11/19 at 09:00 Atorvastatin Calcium (Lipitor) 20 mg QHS GTB Last administered on 07/02/19 20:32; Admin Dose 20 MG; Start 06/10/19 at 21:00 Levetiracetam (Keppra Liquid) 500 mg BID GTB Last administered on 07/03/19 09:16; Admin Dose 500 MG; Start 06/10/19 at 21:00 Olanzapine (Zyprexa) 5 mg DAILY GTB Last administered on 07/03/19 09:17; Admin Dose 5 MG; Start 06/11/19 at 09:00 Polyethylene Glycol (Miralax) 17 gm DAILY GTB Last administered on 07/03/19 09:16; Admin Dose 17 GM; Start 06/11/19 at 09:00 Miscellaneous Information 1 ea NOTE XX ; Start 06/10/19 at 14:00 Glucose (Glutose) 15 gm Q15M PRN PO DECREASED GLUCOSE; Start 06/10/19 at 14:00 Glucose (Glutose) 22.5 gm Q15M PRN PO DECREASED GLUCOSE; Start 06/10/19 at 14:00 Dextrose (D50w Syringe) 25 ml Q15M PRN IV DECREASED GLUCOSE Last administered on 06/30/19 17:14; Admin Dose 25 ML; Start 06/10/19 at 14:00 Dextrose (D50w Syringe) 50 ml Q15M PRN IV DECREASED GLUCOSE Last administered on 07/02/19 02:45; Admin Dose 50 ML; Start 06/10/19 at 14:00 Glucagon (Glucagen) 1 mg Q15M PRN IM DECREASED GLUCOSE; Start 06/10/19 at 14:00 Glucose (Glutose) 15 gm Q15M PRN BUCCAL DECREASED GLUCOSE; Start 06/10/19 at 14:00 IV Flush (NS 10 ml) 10 ml [id number] PRN IV Line Patency; Start 06/10/19 at 16:00 Fluvoxamine Maleate (Fluvoxamine Maleate) 25 mg DAILY GTB Last administered on 07/03/19 09:17; Admin Dose 25 MG; Start 06/11/19 at 09:00 Aspirin (Aspirin) 81 mg DAILY PEG Last administered on 07/03/19 09:17; Admin Dose 81 MG; Start 06/11/19 at 09:00 Heparin Sodium (Porcine) (Heparin (5000 Units/1ml)) 5,000 unit Q8 SC Last administered on 06/14/19 06:01; Admin Dose 5,000 UNIT; Start 06/11/19 at 14:00; Status Hold Ipratropium [place] (Atrovent 0.02% (Neb)) 0.5 mg Q4H RESP THERAPY PRN HHN SHORTNESS OF BREATH; Start 06/12/19 at 10:00 Levalbuterol (Xopenex Neb) 1.25 mg Q4H RESP THERAPY PRN HHN shortness of breath; Start 06/12/19 at 10:00 Fentanyl 100 ml @ 2.5 mls/hr TITRATE IV Last administered on 07/03/19 02:48; Admin Dose 10 MLS/HR; Start 06/12/19 at 10:00 Levalbuterol (Xopenex Hfa) 4 puff Q6H RESP THERAPY INH Last administered on 07/03/19 07:12; Admin Dose 4 PUFF; Start 06/12/19 at 20:00 Ipratropium [place] (Atrovent Hfa) 4 puff Q6H RESP THERAPY INH Last adminis tered on 07/03/19 07:12; Admin Dose 4 PUFF; Start 06/12/19 at 20:00 Docusate Sodium (Colace Liquid Cup) 100 mg BID GTB Last administered on 07/03/19 09:17; Admin Dose 100 MG; Start 06/14/19 at 12:30 Insulin Aspart (Novolog Insulin Pen) NOVOLOG *MILD* ALGORI... Q4 SC Last administered on 07/03/19 09:22; Admin Dose 2 UNIT; Start 06/16/19 at 21:00 Insulin Glargine (Lantus) 15 units DAILY@0800 SC Last administered on 07/03/19 09:26; Admin Dose 15 UNITS; Start 06/18/19 at 08:00 Propofol 100 ml @ 1.656 mls/ hr Q12H IV Last administered on 07/03/19 09:17; Admin Dose 9.936 MLS/HR; Start 06/18/19 at 10:00 Lactobacillus Acidophilus/ Rhamnosus (Culturelle) 1 cap TID PO Last administered on 07/03/19 09:17; Admin Dose 1 CAP; Start 06/18/19 at 21:00 Eye Lubricant (Artificial Tears Oph) 2 drop QID BOTH EYES Last administered on 07/03/19 09:18; Admin Dose 2 DROP; Start 06/23/19 at 09:30 Eye Lubricant (Akwa Oint) 1 applic Q6 BOTH EYES Last administered on 07/03/19 05:03; Admin Dose 1 APPLIC; Start 06/23/19 at 12:00 Potassium Chloride (Potassium Chloride Pwd/Soln) 20 meq PER PROTOCOL PRN GTB P OTASSIUM REPLACEMENT PROTOCOL Last administered on 07/02/19 08:14; Admin Dose 20 MEQ; Start 06/21/19 at 09:30 Potassium Chloride (Potassium Chloride Pwd/Soln) 30 meq PER PROTOCOL PRN GTB POTASSIUM REPLACEMENT PROTOCOL Last administered on 06/27/19 21:06; Admin Dose 30 MEQ; Start 06/21/19 at 09:30 Potassium Chloride (Potassium Chloride Pwd/Soln) 40 meq PER PROTOCOL PRN GTB POTASSIUM REPLACEMENT PROTOCOL Last administered on 06/30/19 08:33; Admin Dose 40 MEQ; Start 06/21/19 at 09:30 Hydrocortisone (Solu-Cortef) 20 mg Q8 IV Last administered on 07/03/19 09:16; Admin Dose 20 MG; Start 06/27/19 at 14:00 Caspofungin 50 mg/ Sodium Chloride 250 ml @ 250 mls/hr Q24H IVPB ; Start 07/03/19 at 15:30 SHENG DONNELLY MD Jul 03, 2019 10:00
--- NOTE | 2019-07-03 10:36 | CONS ---
Assessment/Plan Assessment/Plan Assessment/Plan (Daily) 1. acute Hypernatremia due to severe dehydration -resolved 2. acute Hyperkalemia due to FLOYD - Resolved 3. acute kidney injury on CKD III due to ATN from sepsis and Prerenal azotemia 4 . Septic shock due to multifocal PNA and UTI 5. Acute hypoxic respiratory failure due to PNA and Septic shock - Failed BIPAP- Intubated on 06/12/19 , 6. H/O severe dementia 7. H/O HTN 8. H/O HL 9. SNF resident 10. acute on chronic encephalopathy 11 h/o Dysphagia S/p G tube placement 12. Hypocalcemia 13. UTI with Urine cx growing ESBL Klebsiella Plan: BUN/Cr still high 103/1.09, Na 145, Hco3 29- Continue current care , off bumex now Poor candidate for dialysis due to age, comorbidiites, consider palliative care follow up and comfort care off all abx now, ID following Ventilator Management as per pulmonary -- not doing well, still requiring high PEEP DNR code status, consider Palliative care consult with comfort care if family agrees will follow up Consultation Date/Type/Reason Admit Date/Time Jun 10, 2019 at 12:38 Initial Consult Date 06/11/19 Type of Consult NEPHROLOGY Requesting Provider: MALINI GOMEZ Date/Time of Note DATE: 07/03/19 TIME: 10:35 Exam/Review of Systems Exam Vitals Vital Signs Date Temp Pulse Resp B/P (MAP) Pulse Ox O2 O2 Flow FiO2 Time Delivery Rate 07/03/19 72 21 106/67 98 Mechanical 06:00 (80) Ventilator 07/03/19 90 05:44 07/03/19 97.7 04:00 Intake and Output 07/02/19 07/02/19 07/03/19 1515:00 23:00 07:00 IntakeIntake Total 812.992 ml 1102.772 ml 799.3 ml OutputOutput Total 450 ml 370 ml 300 ml BalanceBalance 362.992 ml 732.772 ml 499.3 ml Exam Constitutional: non-verbal, other (intubated, unresponsive) Respiratory: normal air movement Cardiovascular: regular rate and rhythm Gastrointestinal: soft, distended Musculoskeletal: nl extremities to inspection Extremities: normal pulses, edema (diffuse anasarca) Neurological: lethargic, unresponsive Skin: other (diffuse anasarca) Results Result Diagram: 07/03/19 0400 07/03/19 0400 Results 24hrs Laboratory Tests Test 07/02/19 13:13 07/02/19 16:57 07/02/19 20:36 07/03/19 02:38 Bedside Glucose 115 90 135 146 Test 07/03/19 04:00 07/03/19 05:02 07/03/19 09:20 White Blood Count 15.3 #H Red Blood Count 2.74 L Hemoglobin 8.2 L Hematocrit 27.0 L Mean Corpuscular Volume 98.5 Mean Corpuscular 29.9 Hemoglobin Mean Corpuscular 30.4 L Hemoglobin Concent Red Cell Distribution 15.1 H Width Platelet Count 111 L Mean Platelet Volume 11.8 H Immature Granulocytes % 0.900 H Neutrophils % 91.8 H Lymphocytes % 2.6 L Monocytes % 4.0 Eosinophils % 0.6 Basophils % 0.1 Nucleated Red Blood 0.0 Cells % Immature Granulocytes # 0.130 H Neutrophils # 14.0 H Lymphocytes # 0.4 L Monocytes # 0.6 Eosinophils # 0.1 Basophils # 0.0 Nucleated Red Blood 0.0 Cells # Sodium Level 145 H Potassium Level 3.9 Chloride Level 106 Carbon Dioxide Level 39 H Anion Gap 0 L Blood Urea Nitrogen 103 H Creatinine 1.09 H Glucose Level 138 Calcium Level 7.8 L Phosphorus Level 4.7 Magnesium Level 2.7 H Albumin 2.3 L Bedside Glucose 158 195 Medications Medication Current Medications IV Flush (NS 3 ml) 3 ml PER PROTOCOL IV ; Start 06/10/19 at 12:00 Ondansetron HCl (Zofran Inj) 4 mg Q6H PRN IV NAUSEA/VOMITING; Start 06/10/19 at 12:00 Acetaminophen (Tylenol Tab) 650 mg Q6H PRN PO .PAIN 1-3 OR TEMP Last administered on 06/13/19at 15:52; Admin Dose 650 MG; Start 06/10/19 at 12:00 Acetaminophen/ Hydrocodone Bitart ([place] (5/325)) 1 tab Q6H PRN PO .PAIN 4-6; Start 06/10/19 at 12:00 Morphine Sulfate (morphine) 2 mg Q4H PRN IV .PAIN 7-10 Last administered on at 16:57; Admin Dose 2 MG; Start 06/10/19 at 12:00 Amiodarone HCl (Cordarone) 100 mg DAILY GTB Last administered on 07/03/19 09:17; Admin Dose 100 MG; Start 06/11/19 at 09:00 Atorvastatin Calcium (Lipitor) 20 mg QHS GTB Last administered on 07/02/19 20:32; Admin Dose 20 MG; Start 06/10/19 at 21:00 Levetiracetam (Keppra Liquid) 500 mg BID GTB Last administered on 07/03/19 09:16; Admin Dose 500 MG; Start 06/10/19 at 21:00 Olanzapine (Zyprexa) 5 mg DAILY GTB Last administered on 07/03/19 09:17; Admin Dose 5 MG; Start 06/11/19 at 09:00 Polyethylene Glycol (Miralax) 17 gm DAILY GTB Last administered on 07/03/19 09:16; Admin Dose 17 GM; Start 06/11/19 at 09:00 Miscellaneous Information 1 ea NOTE XX ; Start 06/10/19 at 14:00 Glucose (Glutose) 15 gm Q15M PRN PO DECREASED GLUCOSE; Start 06/10/19 at 14:00 Glucose (Glutose) 22.5 gm Q15M PRN PO DECREASED GLUCOSE; Start 06/10/19 at 14:00 Dextrose (D50w Syringe) 25 ml Q15M PRN IV DECREASED GLUCOSE Last administered on 06/30/19 17:14; Admin Dose 25 ML; Start 06/10/19 at 14:00 Dextrose (D50w Syringe) 50 ml Q15M PRN IV DECREASED GLUCOSE Last administered on 07/02/19 02:45; Admin Dose 50 ML; Start 06/10/19 at 14:00 Glucagon (Glucagen) 1 mg Q15M PRN IM DECREASED GLUCOSE; Start 06/10/19 at 14:00 Glucose (Glutose) 15 gm Q15M PRN BUCCAL DECREASED GLUCOSE; Start 06/10/19 at 14:00 IV Flush (NS 10 ml) 10 ml [id number] PRN IV Line Patency; Start 06/10/19 at 16:00 Fluvoxamine Maleate (Fluvoxamine Maleate) 25 mg DAILY GTB Last administered on 07/03/19 09:17; Admin Dose 25 MG; Start 06/11/19 at 09:00 Aspirin (Aspirin) 81 mg DAILY PEG Last administered on 07/03/19 09:17; Admin Dose 81 MG; Start 06/11/19 at 09:00 Heparin Sodium (Porcine) (Heparin (5000 Units/1ml)) 5,000 unit Q8 SC Last administered on 06/14/19 06:01; Admin Dose 5,000 UNIT; Start 06/11/19 at 14:00; Status Hold Ipratropium [place] (Atrovent 0.02% (Neb)) 0.5 mg Q4H RESP THERAPY PRN HHN SHORTNESS OF BREATH; Start 06/12/19 at 10:00 Levalbuterol (Xopenex Neb) 1.25 mg Q4H RESP THERAPY PRN HHN shortness of breath; Start 06/12/19 at 10:00 Fentanyl 100 ml @ 2.5 mls/hr TITRATE IV Last administered on 07/03/19 02:48; Admin Dose 10 MLS/HR; Start 06/12/19 at 10:00 Levalbuterol (Xopenex Hfa) 4 puff Q6H RESP THERAPY INH Last administered on 07/03/19 07:12; Admin Dose 4 PUFF; Start 06/12/19 at 20:00 Ipratropium [place] (Atrovent Hfa) 4 puff Q6H RESP THERAPY INH Last administered on 07/03/19 07:12; Admin Dose 4 PUFF; Start 06/12/19 at 20:00 Docusate Sodium (Colace Liquid Cup) 100 mg BID GTB Last administered on 07/03/19 09:17; Admin Dose 100 MG; Start 06/14/19 at 12:30 Insulin Aspart (Novolog Insulin Pen) NOVOLOG *MILD* ALGORI... Q4 SC Last administered on 07/03/19 09:22; Admin Dose 2 UNIT; Start 06/16/19 at 21:00 Insulin Glargine (Lantus) 15 units DAILY@0800 SC Last administered on 07/03/19 09:26; Admin Dose 15 UNITS; Start 06/18/19 at 08:00 Propofol 100 ml @ 1.656 mls/ hr Q12H IV Last administered on 07/03/19 09:58; Admin Dose 9.936 MLS/HR; Start 06/18/19 at 10:00 Lactobacillus Acidophilus/ Rhamnosus (Culturelle) 1 cap TID PO Last adminis tered on 07/03/19 09:17; Admin Dose 1 CAP; Start 06/18/19 at 21:00 Eye Lubricant (Artificial Tears Oph) 2 drop QID BOTH EYES Last administered on 07/03/19 09:18; Admin Dose 2 DROP; Start 06/23/19 at 09:30 Eye Lubricant ([place]wa Oint) 1 applic Q6 BOTH EYES Last administered on 07/03/19 05:03; Admin Dose 1 APPLIC; Start 06/23/19 at 12:00 Potassium Chloride (Potassium Chloride Pwd/Soln) 20 meq PER PROTOCOL PRN GTB POTASSIUM REPLACEMENT PROTOCOL Last administered on 07/02/19 08:14; Admin Dose 20 MEQ; Start 06/21/19 at 09:30 Potassium Chloride (Potassium Chloride Pwd/Soln) 30 meq PER PROTOCOL PRN GTB POTASSIUM REPLACEMENT PROTOCOL Last administered on 06/27/19 21:06; Admin Dose 30 MEQ; Start 06/21/19 at 09:30 Potassium Chloride (Potassium Chloride Pwd/Soln) 40 meq PER PROTOCOL PRN GTB POTASSIUM REPLACEMENT PROTOCOL Last administered on 06/30/19 08:33; Admin Dose 40 MEQ; Start 06/21/19 at 09:30 Hydrocortisone (Solu-Cortef) 20 mg Q8 IV Last administered on 07/03/19 09:16; Admin Dose 20 MG; Start 06/27/19 at 14:00 Caspofungin 50 mg/ Sodium Chloride 250 ml @ 250 mls/hr Q24H IVPB ; Start at 15:30 GERMAN FELIX MD Jul 03, 2019 10:36
--- NOTE | 2019-07-03 13:01 | CONS ---
Assessment/Plan Assessment/Plan Hospital Course (Demo Recall) SUBJECTIVE: No acute changes overnight patient looks comfortable. Afebrile. WBC 15.3 platelets 111 neutrophils 91.8 BUN 103 creatinine 1.09 Antimicrobials: Cancidas Microbiology: Repeat urine culture growing Bridget albicans, blood cultures negative INDWELLINGS: Endotracheal tube, PEG, Dial, PICC line. PHYSICAL EXAMINATION: GENERAL: Chronically ill-appearing, elderly woman in no distress. HEENT: Head atraumatic, normocephalic. NECK: Supple. Trachea midline. CHEST: Rise symmetrical. Breath sounds diminished to bases. HEART: S1, S2. ABDOMEN: Distended. Bowel tones are hypoactive. EXTREMITIES: Without cyanosis. SKIN: Patient has severe anasarca. ASSESSMENT: 1. Leukocytosis, possibly steroid-induced 2. Acute respiratory failure 3. Healthcare associated pneumonia 4. C glabrata UTI 5. Dysphagia 6. Atrial fibrillation and non-ST elevation MT 9. Acute kidney insufficiency 10. DNR Plan: Clinically unchanged, continue present care Consultation Date/Type/Reason Admit Date/Time Jun 10, 2019 at 12:38 Initial Consult Date 06/11/19 Type of Consult id Requesting Provider: MALINI GOMEZ Date/Time of Note DATE: 07/03/19 TIME: 13:00 Exam/Review of Systems Exam Vitals Vital Signs Date Temp Pulse Resp B/P (MAP) Pulse Ox O2 O2 Flow FiO2 Time Delivery Rate 07/03/19 90 12:00 07/03/19 72 21 106/67 98 Mechanical 06:00 (80) Ventilator 07/03/19 97.7 04:00 Intake and Output 07/02/19 07/02/19 07/03/19 1515:00 23:00 07:00 IntakeIntake Total 812.992 ml 1102.772 ml 799.3 ml OutputOutput Total 450 ml 370 ml 300 ml BalanceBalance 362.992 ml 732.772 ml 499.3 ml Results Result Diagram: 07/03/19 0400 07/03/19 0400 Results 24hrs Laboratory Tests Test 07/02/19 13:13 07/02/19 16:57 07/02/19 20:36 07/03/19 02:38 Bedside Glucose 115 90 135 146 Test 07/03/19 04:00 07/03/19 05:02 07/03/19 09:20 White Blood Count 15.3 #H Red Blood Count 2.74 L Hemoglobin 8.2 L Hematocrit 27.0 L Mean Corpuscular Volume 98.5 Mean Corpuscular 29.9 Hemoglobin Mean Corpuscular 30.4 L Hemoglobin Concent Red Cell Distribution 15.1 H Width Platelet Count 111 L Mean Platelet Volume 11.8 H Immature Granulocytes % 0.900 H Neutrophils % 91.8 H Lymphocytes % 2.6 L Monocytes % 4.0 Eosinophils % 0.6 Basophils % 0.1 Nucleated Red Blood 0.0 Cells % Immature Granulocytes # 0.130 H Neutrophils # 14.0 H Lymphocytes # 0.4 L Monocytes # 0.6 Eosinophils # 0.1 Basophils # 0.0 Nucleated Red Blood 0.0 Cells # Sodium Level 145 H Potassium Level 3.9 Chloride Level 106 Carbon Dioxide Level 39 H Anion Gap 0 L Blood Urea Nitrogen 103 H Creatinine 1.09 H Glucose Level 138 Calcium Level 7.8 L Phosphorus Level 4.7 Magnesium Level 2.7 H Albumin 2.3 L Bedside Glucose 158 195 Medications Medication Current Medications IV Flush (NS 3 ml) 3 ml PER PROTOCOL IV ; Start 06/10/19 at 12:00 Ondansetron HCl (Zofran Inj) 4 mg Q6H PRN IV NAUSEA/VOMITING; Start 06/10/19 at 12:00 Acetaminophen (Tylenol Tab) 650 mg Q6H PRN PO .PAIN 1-3 OR TEMP Last administered on 06/13/19at 15:52; Admin Dose 650 MG; Start 06/10/19 at 12:00 Acetaminophen/ Hydrocodone Bitart (Sandwich (5/325)) 1 tab Q6H PRN PO .PAIN 4-6; Start 06/10/19 at 12:00 Morphine Sulfate (morphine) 2 mg Q4H PRN IV .PAIN 7-10 Last administered on 06/15/19at 16:57; Admin Dose 2 MG; Start 06/10/19 at 12:00 Amiodarone HCl (Cordarone) 100 mg DAILY GTB Last administered on 07/03/19 09:17; Admin Dose 100 MG; Start 06/11/19 at 09:00 Atorvastatin Calcium (Lipitor) 20 mg QHS GTB Last administered on 07/02/19at 20:32; Admin Dose 20 MG; Start 06/10/19 at 21:00 Levetiracetam (Keppra Liquid) 500 mg BID GTB Last administered on 07/03/19 09:16; Admin Dose 500 MG; Start 06/10/19 at 21:00 Olanzapine (Zyprexa) 5 mg DAILY GTB Last administered on 07/03/19 09:17; Admin Dose 5 MG; Start 06/11/19 at 09:00 Polyethylene Glycol (Miralax) 17 gm DAILY GTB Last administered on 07/03/19 09 :16; Admin Dose 17 GM; Start 06/11/19 at 09:00 Miscellaneous Information 1 ea NOTE XX ; Start 06/10/19 at 14:00 Glucose (Glutose) 15 gm Q15M PRN PO DECREASED GLUCOSE; Start 06/10/19 at 14:00 Glucose (Glutose) 22.5 gm Q15M PRN PO DECREASED GLUCOSE; Start 06/10/19 at 14:00 Dextrose (D50w Syringe) 25 ml Q15M PRN IV DECREASED GLUCOSE Last administered on 06/30/19at 17:14; Admin Dose 25 ML; Start 06/10/19 at 14:00 Dextrose (D50w Syringe) 50 ml Q15M PRN IV DECREASED GLUCOSE Last administered on 07/02/19at 02:45; Admin Dose 50 ML; Start 06/10/19 at 14:00 Glucagon (Glucagen) 1 mg Q15M PRN IM DECREASED GLUCOSE; Start 06/10/19 at 14:00 Glucose (Glutose) 15 gm Q15M PRN BUCCAL DECREASED GLUCOSE; Start 06/10/19 at 14:00 IV Flush (NS 10 ml) 10 ml [id number] PRN IV Line Patency; Start 06/10/19 at 16:00 Fluvoxamine Maleate (Fluvoxamine Maleate) 25 mg DAILY GTB Last administered on 07/03/19 09:17; Admin Dose 25 MG; Start 06/11/19 at 09:00 Aspirin (Aspirin) 81 mg DAILY PEG Last administered on 07/03/19 09:17; Admin Dose 81 MG; Start 06/11/19 at 09:00 Heparin Sodium (Porcine) (Heparin (5000 Units/1ml)) 5,000 unit Q8 SC Last administered on 06/14/19at 06:01; Admin Dose 5,000 UNIT; Start 06/11/19 at 14:00; Status Hold Ipratropium [place] (Atrovent 0.02% (Neb)) 0.5 mg Q4H RESP THERAPY PRN HHN SH ORTNESS OF BREATH; Start 06/12/19 at 10:00 Levalbuterol (Xopenex Neb) 1.25 mg Q4H RESP THERAPY PRN HHN shortness of breath; Start 06/12/19 at 10:00 Fentanyl 100 ml @ 2.5 mls/hr TITRATE IV Last administered on 07/03/19 02:48; Admin Dose 10 MLS/HR; Start 06/12/19 at 10:00 Levalbuterol (Xopenex Hfa) 4 puff Q6H RESP THERAPY INH Last administered on 07/03/19 07:12; Admin Dose 4 PUFF; Start 06/12/19 at 20:00 Ipratropium [place] (Atrovent Hfa) 4 puff Q6H RESP THERAPY INH Last administered on 07/03/19 07:12; Admin Dose 4 PUFF; Start 06/12/19 at 20:00 Docusate Sodium (Colace Liquid Cup) 100 mg BID GTB Last administered on 07/03/19 09:17; Admin Dose 100 MG; Start 06/14/19 at 12:30 Insulin Aspart (Novolog Insulin Pen) NOVOLOG *MILD* ALGORI... Q4 SC Last administered on 07/03/19 09:22; Admin Dose 2 UNIT; Start 06/16/19 at 21:00 Insulin Glargine (Lantus) 15 units DAILY@0800 SC Last administered on 07/03/19 09:26; Admin Dose 15 UNITS; Start 06/18/19 at 08:00 Propofol 100 ml @ 1.656 mls/ hr Q12H IV Last administered on 07/03/19 09:58; Admin Dose 9.936 MLS/HR; Start 06/18/19 at 10:00 Lactobacillus Acidophilus/ Rhamnosus (Culturelle) 1 cap TID PO Last administered on 07/03/19 09:17; Admin Dose 1 CAP; Start 06/18/19 at 21:00 Eye Lubricant (Artificial Tears Oph) 2 drop QID BOTH EYES Last administered on 07/03/19 09:18; Admin Dose 2 DROP; Start 06/23/19 at 09:30 Eye Lubricant (Akwa Oint) 1 applic Q6 BOTH EYES Last administered on 07/03/19 05:03; Admin Dose 1 APPLIC; Start 06/23/19 at 12:00 Potassium Chloride (Potassium Chloride Pwd/Soln) 20 meq PER PROTOCOL PRN GTB POTASSIUM REPLACEMENT PROTOCOL Last administered on 07/02/19 08:14; Admin Dose 20 MEQ; Start 06/21/19 at 09:30 Potassium Chloride (Potassium Chloride Pwd/Soln) 30 meq PER PROTOCOL PRN GTB POTASSIUM REPLACEMENT PROTOCOL Last administered on 06/27/19 21:06; Admin Dose 30 MEQ; Start 06/21/19 at 09:30 Potassium Chloride (Potassium Chloride Pwd/Soln) 40 meq PER PROTOCOL PRN GTB POTASSIUM REPLACEMENT PROTOCOL Last administered on 06/30/19at 08:33; Admin Dose 40 MEQ; Start 06/21/19 at 09:30 Hydrocortisone (Solu-Cortef) 20 mg Q8 IV Last administered on 07/03/19at 09:16; Admin Dose 20 MG; Start 06/27/19 at 14:00 Caspofungin 50 mg/ Sodium Chloride 250 ml @ 250 mls/hr Q24H IVPB ; Start 07/03/19 at 15:30 JACKIE BRUNNER NP Jul 03, 2019 13:01
[2019-07-03] MEDS: CASPOFUNGIN 50 MG in SOD CHLORIDE 0.9% 250 ML IVPB SCH (14:13)
[2019-07-03] MEDS: ATORVASTATIN 20 MG TAB GTB SCH (20:24)
[2019-07-04] VITALS (55 sets, daily range): BP systolic 118–159; BP diastolic 68–114; PULSE 77–100; RESP 0–35
[2019-07-04] MEDS: FENTAnyl (DRIP) 1000 mcg/100mL 100 ML IV SCH ×2 (00:09→10:48)
[2019-07-04] MEDS: OCULAR LUBRICANT 3.5 GM OPH OINT BOTH EYES SCH ×4 (00:09→17:17)
[2019-07-04] MEDS: INSULIN ASPART [NOVOLOG] 3 ML PEN SC SCH ×6 (00:55→21:00)
[2019-07-04] MEDS: IPRATROPIUM (HFA) 12.9 GM INHALER INH SCH ×4 (01:28→20:46)
[2019-07-04] MEDS: LEVALBUTEROL (HFA) 15 GM INHALER INH SCH ×4 (01:28→20:46)
[2019-07-04] MEDS: DEXTROSE 50% 50 ML SYRINGE IV PRN (05:11)
[2019-07-04] MEDS: HYDROCORTISONE 100 MG INJ IV SCH ×3 (05:17→22:07)
[2019-07-04] MEDS: PROPOFOL 100 ML IV SCH ×2 (07:21→17:20)
--- NOTE | 2019-07-04 08:55 | CONS ---
Assessment/Plan Assessment/Plan Assessment/Plan (Daily) Patient remains critically ill in the intensive care unit in his asked Dr. Gonzalez to give him family members more time to make a decision on PEG and trach. At this time I would suggest Bioethics Consultation as there is been some unclear family dynamics conveyed to the primary health care team . Initially son did not want to address level of care when the sister was out of town. She returned approximately 1 week ago at that time family was supposed to contact us for a family conference, this was not done and she is left town once again.. Patient is DO NOT RESUSCITATE Consultation Date/Type/Reason Admit Date/Time Jun 10, 2019 at 12:38 Date/Time of Note DATE: 07/04/19 TIME: 08:51 Hx of Present Illness Asked to see this 84-year-old female who is in the intensive care unit [facility] admitted with respiratory failure, ARDS and sepsis syndrome. Patient is extremely ill she is intubated and has a G-tube placed prior to this hospitalization. Pain was treated aggressively with IV antibiot ics she is been seen by infectious disease consultation and pulmonary medicine. Following her medical record she has a multifocal pneumonia history of atrial fibrillation with RVR, non-ST myocardial infarction, failure to thrive anasarca and encephalopathy. I am asked to see patient to speak to family member in palliative care consultation is family members will need to decide upon permanent trach or not. As I understand from Dr. Lainez 2 brothers and sister are very much involved with ongoing care decision making. On June 24, 2019 I reached out to patient's son Bob and asked if we can set up an appointment in the family conference with all 3 siblings. He did tell me his sister is back from vacation and she is available. However he made it very clear that he has been in contact with Dr. Lainez and Dr. Gonzalez and gave me the clear impression that he did not want to discuss it once again. He was pleasant but said he and other family members are thinking about the next step but at this time they do not want to change level of care I do not want to think about whether not patient should be trached yet. I did tell him that his mother has been intubated for almost 2 weeks and decision needs to be made for trach or not. I told him that even if she is trach that was to have options at some later date to discontinue care in the event that she does not improve significantly which I think would probably be the case Explained the chronicity of her medical problems and her underlying encephalopathy/dementia. He also made very clear that his sister has a strong will and that there may be some differences between them insofar his goals of care. At the end of the conversation he would not commit himself to a family conference I gave him my phone number I have asked him to call me or Dr. Lainez at any time. Past Medical History Medical History: high cholesterol, hypertension, other (Dementia, Atrial fibrillation ) Home Meds Reported Medications Pantoprazole* (Protonix*) 40 Mg Tablet.dr, 40 MG PO DAILY, TAB 09/03/14 Donepezil* (Aricept*) 5 Mg Tablet, 5 MG PO DAILY, TAB 09/03/14 Atorvastatin Calcium* (Atorvastatin Calcium*) 20 Mg Tablet, 20 MG PO HS, TAB 09/03/14 Saxagliptin Hcl/Metformin Hcl (KOMBIGLYZE XR 5-500 MG TABLET) 1 Each Tbmp.24hr, 1 EACH PO DAILY 09/03/14 Medications Current Medications IV Flush (NS 3 ml) 3 ml PER PROTOCOL IV ; Start 06/10/19 at 12:00 Ondansetron HCl (Zofran Inj) 4 mg Q6H PRN IV NAUSEA/VOMITING; Start 06/10/19 at 12:00 Acetaminophen (Tylenol Tab) 650 mg Q6H PRN PO .PAIN 1-3 OR TEMP Last administered on 06/13/19at 15:52; Admin Dose 650 MG; Start 06/10/19 at 12:00 Acetaminophen/ Hydrocodone Bitart ([place] (5/325)) 1 tab Q6H PRN PO .PAIN 4-6; Start 06/10/19 at 12:00 Morphine Sulfate (morphine) 2 mg Q4H PRN IV .PAIN 7-10 Last administered on 06/15/19at 16:57; Admin Dose 2 MG; Start 06/10/19 at 12:00 Amiodarone HCl (Cordarone) 100 mg DAILY GTB Last administered on 07/03/19 09: 17; Admin Dose 100 MG; Start 06/11/19 at 09:00 Atorvastatin Calcium (Lipitor) 20 mg QHS GTB Last administered on 07/03/19at 20:24; Admin Dose 20 MG; Start 06/10/19 at 21:00 Levetiracetam (Keppra Liquid) 500 mg BID GTB Last administered on 07/03/19 20:24; Admin Dose 500 MG; Start 06/10/19 at 21:00 Olanzapine (Zyprexa) 5 mg DAILY GTB Last administered on 07/03/19 09:17; Admin Dose 5 MG; Start 06/11/19 at 09:00 Polyethylene Glycol (Miralax) 17 gm DAILY GTB Last administered on 07/03/19 09:16; Admin Dose 17 GM; Start 06/11/19 at 09:00 Miscellaneous Information 1 ea NOTE XX ; Start 06/10/19 at 14:00 Glucose (Glutose) 15 gm Q15M PRN PO DECREASED GLUCOSE; Start 06/10/19 at 14:00 Glucose (Glutose) 22.5 gm Q15M PRN PO DECREASED GLUCOSE; Start 06/10/19 at 14:00 Dextrose (D50w Syringe) 25 ml Q15M PRN IV DECREASED GLUCOSE Last administered on 07/04/19at 05:11; Admin Dose 25 ML; Start 06/10/19 at 14:00 Dextrose (D50w Syringe) 50 ml Q15M PRN IV DECREASED GLUCOSE Last administered on 07/02/19at 02:45; Admin Dose 50 ML; Start 06/10/19 at 14:00 Glucagon (Glucagen) 1 mg Q15M PRN IM DECREASED GLUCOSE; Start 06/10/19 at 14:00 Glucose (Glutose) 15 gm Q15M PRN BUCCAL DECREASED GLUCOSE; Start 06/10/19 at 14:00 IV Flush (NS 10 ml) 10 ml [id number] PRN IV Line Patency; Start 06/10/19 at 16:00 Fluvoxamine Maleate (Fluvoxamine Maleate) 25 mg DAILY GTB Last administered on 07/03/19 09:17; Admin Dose 25 MG; Start 06/11/19 at 09:00 Aspirin (Aspirin) 81 mg DAILY PEG Last administered on 07/03/19 09:17; Admin Dose 81 MG; Start 06/11/19 at 09:00 Heparin Sodium (Porcine) (Heparin (5000 Units/1ml)) 5,000 unit Q8 SC Last administered on 06/14/19at 06:01; Admin Dose 5,000 UNIT; Start 06/11/19 at 14:00; Status Hold Ipratropium [place] (Atrovent 0.02% (Neb)) 0.5 mg Q4H RESP THERAPY PRN HHN SHORTNESS OF BREATH; Start 06/12/19 at 10:00 Levalbuterol (Xopenex Neb) 1.25 mg Q4H RESP THERAPY PRN HHN shortness of breath; Start 06/12/19 at 10:00 Fentanyl 100 ml @ 2.5 mls/hr TITRATE IV Last administered on 07/04/19 00:09; Admin Dose 10 MLS/HR; Start 06/12/19 at 10:00 Levalbuterol (Xopenex Hfa) 4 puff Q6H RESP THERAPY INH Last administered on 07/04/19 08:03; Admin Dose 4 PUFF; Start 06/12/19 at 20:00 Ipratropium [place] (Atrovent Hfa) 4 puff Q6H RESP THERAPY INH Last administered on 07/04/19 08:03; Admin Dose 4 PUFF; Start 06/12/19 at 20:00 Docusate Sodium (Colace Liquid Cup) 100 mg BID GTB Last administered on 07/03/19 20:25; Admin Dose 100 MG; Start 06/14/19 at 12:30 Insulin Aspart (Novolog Insulin Pen) NOVOLOG *MILD* ALGORI... Q4 SC Last administered on 07/03/19 14:09; Admin Dose 1 UNIT; Start 06/16/19 at 21:00 Propofol 100 ml @ 1.656 mls/ hr Q12H IV Last administered on 07/04/19 07:21; Admin Dose 9.936 MLS/HR; Start 06/18/19 at 10:00 Lactobacillus Acidophilus/ Rhamnosus (Culturelle) 1 cap TID PO Last administered on 07/03/19 20:24; Admin Dose 1 CAP; Start 06/18/19 at 21:00 Eye Lubricant (Artificial Tears Oph) 2 drop QID BOTH EYES Last administered on 07/03/19 20:25; Admin Dose 2 DROP; Start 06/23/19 at 09:30 Eye Lubricant (Akwa Oint) 1 applic Q6 BOTH EYES Last administered on 07/04/19 05:17; Admin Dose 1 APPLIC; Start 06/23/19 at 12:00 Potassium Chloride (Potassium Chloride Pwd/Soln) 20 meq PER PROTOCOL PRN GTB POTASSIUM REPLACEMENT PROTOCOL Last administered on 07/02/19 08:14; Admin Dose 20 MEQ; Start 06/21/19 at 09:30 Potassium Chloride (Potassium Chloride Pwd/Soln) 30 meq PER PROTOCOL PRN GTB POTASSIUM REPLACEMENT PROTOCOL Last administered on 06/27/19 21:06; Admin Dose 30 MEQ; Start 06/21/19 at 09:30 Potassium Chloride (Potassium Chloride Pwd/Soln) 40 meq PER PROTOCOL PRN GTB POTASSIUM REPLACEMENT PROTOCOL Last administered on 06/30/19 08:33; Admin Dose 40 MEQ; Start 06/21/19 at 09:30 Hydrocortisone (Solu-Cortef) 20 mg Q8 IV Last administered on 07/04/19 05:17; Admin Dose 20 MG; Start 06/27/19 at 14:00 Caspofungin 50 mg/ Sodium Chloride 250 ml @ 250 mls/hr Q24H IVPB Last administered on 07/03/19 14:13; Admin Dose 250 MLS/HR; Start 07/03/19 at 15:30 Insulin Glargine (Lantus) 8 units DAILY@0800 SC ; Start 07/05/19 at 08:00 Allergies: Coded Allergies: No Known Allergy (Verified , 09/10/14) Past Surgical History Past Surgical Hx: other (not available ) Social History Alcohol Use: none Smoking Status: Unknown if ever smoked Drug Use: none Exam/Review of Systems Exam Vitals Vital Signs Date Temp Pulse Resp B/P (MAP) Pulse Ox O2 O2 Flow FiO2 Time Delivery Rate 07/04/19 79 12 134/76 97 Mechanical 05:30 (95) Ventilator 07/04/19 90 05:30 07/04/19 98.5 00:00 Intake and Output 07/03/19 07/03/19 07/04/19 1515:00 23:00 07:00 IntakeIntake Total 350 ml 430 ml 600 ml OutputOutput Total 400 ml 280 ml 310 ml BalanceBalance -50 ml 150 ml 290 ml Constitutional: distress, frail Respiratory: congested cough, crackles/rales, diminished breath sounds Cardiovascular: regular rate and rhythm, nl pulses Skin: other (Sedated) Results Result Diagram: 07/03/19 0400 07/03/19 0400 Results 24hrs Laboratory Tests Test 07/03/19 09:20 07/03/19 14:06 07/03/19 17:53 07/03/19 20:27 Bedside Glucose 195 161 111 93 Test 07/04/19 00:53 07/04/19 05:04 07/04/19 06:03 Bedside Glucose 71 68 L 99 Medications Medication Current Medications IV Flush (NS 3 ml) 3 ml PER PROTOCOL IV ; Start 06/10/19 at 12:00 Ondansetron HCl (Zofran Inj) 4 mg Q6H PRN IV NAUSEA/VOMITING; Start 06/10/19 at 12:00 Acetaminophen (Tylenol Tab) 650 mg Q6H PRN PO .PAIN 1-3 OR TEMP Last administered on 06/13/19at 15:52; Admin Dose 650 MG; Start 06/10/19 at 12:00 Acetaminophen/ Hydrocodone Bitart ([place] (5/325)) 1 tab Q6H PRN PO .PAIN 4-6; Start 06/10/19 at 12:00 Morphine Sulfate (morphine) 2 mg Q4H PRN IV .PAIN 7-10 Last administered on 06/15/19 16:57; Admin Dose 2 MG; Start 06/10/19 at 12:00 Amiodarone HCl (Cordarone) 100 mg DAILY GTB Last administered on 07/03/19 09:17; Admin Dose 100 MG; Start 06/11/19 at 09:00 Atorvastatin Calcium (Lipitor) 20 mg QHS GTB Last administered on 07/03/19 20:24; Admin Dose 20 MG; Start 06/10/19 at 21:00 Levetiracetam (Keppra Liquid) 500 mg BID GTB Last administered on 07/03/19 20:2 4; Admin Dose 500 MG; Start 06/10/19 at 21:00 Olanzapine (Zyprexa) 5 mg DAILY GTB Last administered on 07/03/19 09:17; Admin Dose 5 MG; Start 06/11/19 at 09:00 Polyethylene Glycol (Miralax) 17 gm DAILY GTB Last administered on 07/03/19 09:16; Admin Dose 17 GM; Start 06/11/19 at 09:00 Miscellaneous Information 1 ea NOTE XX ; Start 06/10/19 at 14:00 Glucose (Glutose) 15 gm Q15M PRN PO DECREASED GLUCOSE; Start 06/10/19 at 14:00 Glucose (Glutose) 22.5 gm Q15M PRN PO DECREASED GLUCOSE; Start 06/10/19 at 14:00 Dextrose (D50w Syringe) 25 ml Q15M PRN IV DECREASED GLUCOSE Last administered on 07/04/19at 05:11; Admin Dose 25 ML; Start 06/10/19 at 14:00 Dextrose (D50w Syringe) 50 ml Q15M PRN IV DECREASED GLUCOSE Last administered on 07/02/19at 02:45; Admin Dose 50 ML; Start 06/10/19 at 14:00 Glucagon (Glucagen) 1 mg Q15M PRN IM DECREASED GLUCOSE; Start 06/10/19 at 14:00 Glucose (Glutose) 15 gm Q15M PRN BUCCAL DECREASED GLUCOSE; Start 06/10/19 at 14:00 IV Flush (NS 10 ml) 10 ml [id number] PRN IV Line Patency; Start 06/10/19 at 16:00 Fluvoxamine Maleate (Fluvoxamine Maleate) 25 mg DAILY GTB Last administered on 07/03/19 09:17; Admin Dose 25 MG; Start 06/11/19 at 09:00 Aspirin (Aspirin) 81 mg DAILY PEG Last administered on 07/03/19 09:17; Admin Dose 81 MG; Start 06/11/19 at 09:00 Heparin Sodium (Porcine) (Heparin (5000 Units/1ml)) 5,000 unit Q8 SC Last administered on 06/14/19at 06:01; Admin Dose 5,000 UNIT; Start 06/11/19 at 14:00; Status Hold Ipratropium [place] (Atrovent 0.02% (Neb)) 0.5 mg Q4H RESP THERAPY PRN HHN SHORTNESS OF BREATH; Start 06/12/19 at 10:00 Levalbuterol (Xopenex Neb) 1.25 mg Q4H RESP THERAPY PRN HHN shortness of breath; Start 06/12/19 at 10:00 Fentanyl 100 ml @ 2.5 mls/hr TITRATE IV Last administered on 07/04/19at 00:09; Admin Dose 10 MLS/HR; Start 06/12/19 at 10:00 Levalbuterol (Xopenex Hfa) 4 puff Q6H RESP THERAPY INH Last administered on 07/04/19 08:03; Admin Dose 4 PUFF; Start 06/12/19 at 20:00 Ipratropium [place] (Atrovent Hfa) 4 puff Q6H RESP THERAPY INH Last administered on 07/04/19 08:03; Admin Dose 4 PUFF; Start 06/12/19 at 20:00 Docusate Sodium (Colace Liquid Cup) 100 mg BID GTB Last administered on 07/03/19 20:25; Admin Dose 100 MG; Start 06/14/19 at 12:30 Insulin Aspart (Novolog Insulin Pen) NOVOLOG *MILD* ALGORI... Q4 SC Last administered on 07/03/19 14:09; Admin Dose 1 UNIT; Start 06/16/19 at 21:00 Propofol 100 ml @ 1.656 mls/ hr Q12H IV Last administered on 07/04/19 07:21; Admin Dose 9.936 MLS/HR; Start 06/18/19 at 10:00 Lactobacillus Acidophilus/ Rhamnosus (Culturelle) 1 cap TID PO Last administered on 07/03/19 20:24; Admin Dose 1 CAP; Start 06/18/19 at 21:00 Eye Lubricant (Artificial Tears Oph) 2 drop QID BOTH EYES Last administered on 07/03/19 20:25; Admin Dose 2 DROP; Start 06/23/19 at 09:30 Eye Lubricant (Akwa Oint) 1 applic Q6 BOTH EYES Last administered on 07/04/19 05:17; Admin Dose 1 APPLIC; Start 06/23/19 at 12:00 Potassium Chloride (Potassium Chloride Pwd/Soln) 20 meq PER PROTOCOL PRN GTB POTASSIUM REPLACEMENT PROTOCOL Last administered on 07/02/19 08:14; Admin Dose 20 MEQ; Start 06/21/19 at 09:30 Potassium Chloride (Potassium Chloride Pwd/Soln) 30 meq PER PROTOCOL PRN GTB POTASSIUM REPLACEMENT PROTOCOL Last administered on 06/27/19 21:06; Admin Dose 30 MEQ; Start 06/21/19 at 09:30 Potassium Chloride (Potassium Chloride Pwd/Soln) 40 meq PER PROTOCOL PRN GTB POTASSIUM REPLACEMENT PROTOCOL Last administered on 06/30/19 08:33; Admin Dose 40 MEQ; Start 06/21/19 at 09:30 Hydrocortisone (Solu-Cortef) 20 mg Q8 IV Last administered on 07/04/19at 05:17; Admin Dose 20 MG; Start 06/27/19 at 14:00 Caspofungin 50 mg/ Sodium Chloride 250 ml @ 250 mls/hr Q24H IVPB Last administered on 07/03/19at 14:13; Admin Dose 250 MLS/HR; Start 07/03/19 at 15:30 Insulin Glargine (Lantus) 8 units DAILY@0800 SC ; Start 07/05/19 at 08:00 NANCY BANKS Jul 04, 2019 08:55
[2019-07-04] MEDS: ARTIFICIAL TEARS 15 ML OPH BOTH EYES SCH ×4 (09:03→21:03)
[2019-07-04] MEDS: LACTOBACILLUS RHAMNOSUS CAP PO SCH ×3 (09:03→21:02)
[2019-07-04] MEDS: DOCUSATE SODIUM 10 MG/ML (10ML CUP) GTB SCH ×2 (09:04→21:02)
[2019-07-04] MEDS: FLUVOXAMINE MALEATE 25 MG TABLET GTB SCH (09:04)
[2019-07-04] MEDS: ASPIRIN 81 MG TAB PEG SCH (09:04)
[2019-07-04] MEDS: POLYETHYLENE GLYCOL 17 GM PACKET GTB SCH (09:04)
[2019-07-04] MEDS: AMIODARONE 200 MG TAB GTB SCH (09:04)
[2019-07-04] MEDS: LEVETIRACETAM (100 MG/ML) 5ML CUP GTB SCH ×2 (09:04→21:02)
[2019-07-04] MEDS: OLANZAPINE 5 MG TAB GTB SCH (09:04)
[2019-07-04] MEDS: POTASSIUM CHLORIDE 20 MEQ POWDER FOR ORAL SOLN GTB PRN (09:05)
[2019-07-04] MEDS: BALSAM PERU/CASTOR OIL 60 GM TUBE TOP SCH (09:05)
--- NOTE | 2019-07-04 09:32 | CONS ---
Consult Date/Type/Reason Admit Date/Time Jun 10, 2019 at 12:38 Initial Consult Date 06/11/19 Type of Consult Pulmonary Requesting Provider: MALINI GOMEZ Date/Time of Note DATE: 07/04/19 TIME: 09:29 Subjective No significant changes. Patient remains unresponsive. Currently no vasopressors. Significant anasarca. Objective Vital Signs Date Temp Pulse Resp B/P (MAP) Pulse Ox O2 O2 Flow FiO2 Time Delivery Rate 07/04/19 79 12 134/76 97 Mechanical 05:30 (95) Ventilator 07/04/19 90 05:30 07/04/19 98.5 00:00 Intake and Output 07/03/19 07/03/19 07/04/19 1515:00 23:00 07:00 IntakeIntake Total 350 ml 430 ml 600 ml OutputOutput Total 400 ml 280 ml 310 ml BalanceBalance -50 ml 150 ml 290 ml Exam GENERAL: The lady orally intubated, unresponsive off sedation VITAL SIGNS: per chart NECK: Supple. No JVD or lymphadenopathy. CARDIAC EXAM: S1, S2. No added sounds or murmurs. CHEST: Diminished air entry bilaterally ABDOMEN: Soft, nontender. No guarding or rebound. EXTREMITIES: No cyanosis, clubbing edema +2 NEUROLOGIC: Generalized weakness. Vent Setting Ventilator Support Mode: PC Fraction of Inspired Oxygen pe: 90 Positive End Expiratory Pressu: 10.0 Results/Medications Result Diagram: 07/03/19 0400 07/03/19 0400 Results 24 hrs Laboratory Tests Test 07/03/19 14:06 07/03/19 17:53 07/03/19 20:27 07/04/19 00:53 Bedside Glucose 161 111 93 71 Test 07/04/19 05:04 07/04/19 06:03 07/04/19 09:00 Bedside Glucose 68 L 99 147 Medications Current Medications IV Flush (NS 3 ml) 3 ml PER PROTOCOL IV ; Start 06/10/19 at 12:00 Ondansetron HCl (Zofran Inj) 4 mg Q6H PRN IV NAUSEA/VOMITING; Start 06/10/19 at 12:00 Acetaminophen (Tylenol Tab) 650 mg Q6H PRN PO .PAIN 1-3 OR TEMP Last administered on 06/13/19at 15:52; Admin Dose 650 MG; Start 06/10/19 at 12:00 Acetaminophen/ Hydrocodone Bitart ([place] (5/325)) 1 tab Q6H PRN PO .PAIN 4-6; Start 06/10/19 at 12:00 Morphine Sulfate (morphine) 2 mg Q4H PRN IV .PAIN 7-10 Last administered on 06/15/19at 16:57; Admin Dose 2 MG; Start 06/10/19 at 12:00 Amiodarone HCl (Cordarone) 100 mg DAILY GTB Last administered on 07/04/19 09:04; Admin Dose 100 MG; Start 06/11/19 at 09:00 Atorvastatin Calcium (Lipitor) 20 mg QHS GTB Last administered on 07/03/19 20:24; Admin Dose 20 MG; Start 06/10/19 at 21:00 Levetiracetam (Keppra Liquid) 500 mg BID GTB Last administered on 07/04/19 09:04; Admin Dose 500 MG; Start 06/10/19 at 21:00 Olanzapine (Zyprexa) 5 mg DAILY GTB Last administered on 07/04/19 09:04; Admin Dose 5 MG; Start 06/11/19 at 09:00 Polyethylene Glycol (Miralax) 17 gm DAILY GTB Last administered on 07/04/19 09:04; Admin Dose 17 GM; Start 06/11/19 at 09:00 Miscellaneous Information 1 ea NOTE XX ; Start 06/10/19 at 14:00 Glucose (Glutose) 15 gm Q15M PRN PO DECREASED GLUCOSE; Start 06/10/19 at 14:00 Glucose (Glutose) 22.5 gm Q15M PRN PO DECREASED GLUCOSE; Start 06/10/19 at 14:00 Dextrose (D50w Syringe) 25 ml Q15M PRN IV DECREASED GLUCOSE Last administered on 07/04/19 05:11; Admin Dose 25 ML; Start 06/10/19 at 14:00 Dextrose (D50w Syringe) 50 ml Q15M PRN IV DECREASED GLUCOSE Last administered on 07/02/19at 02:45; Admin Dose 50 ML; Start 06/10/19 at 14:00 Glucagon (Glucagen) 1 mg Q15M PRN IM DECREASED GLUCOSE; Start 06/10/19 at 14:00 Glucose (Glutose) 15 gm Q15M PRN BUCCAL DECREASED GLUCOSE; Start 06/10/19 at 14:00 IV Flush (NS 10 ml) 10 ml [id number] PRN IV Line Patency; Start 06/10/19 at 16:00 Fluvoxamine Maleate (Fluvoxamine Maleate) 25 mg DAILY GTB Last administered on 07/04/19 09:04; Admin Dose 25 MG; Start 06/11/19 at 09:00 Aspirin (Aspirin) 81 mg DAILY PEG Last administered on 07/04/19 09:04; Admin Dose 81 MG; Start 06/11/19 at 09:00 Heparin Sodium (Porcine) (Heparin (5000 Units/1ml)) 5,000 unit Q8 SC Last administered on 06/14/19 06:01; Admin Dose 5,000 UNIT; Start 06/11/19 at 14:00; Status Hold Ipratropium [place] (Atrovent 0.02% (Neb)) 0.5 mg Q4H RESP THERAPY PRN HHN SHORTNESS OF BREATH; Start 06/12/19 at 10:00 Levalbuterol (Xopenex Neb) 1.25 mg Q4H RESP THERAPY PRN HHN shortness of breath; Start 06/12/19 at 10:00 Fentanyl 100 ml @ 2.5 mls/hr TITRATE IV Last administered on 07/04/19 00:09; Admin Dose 10 MLS/HR; Start 06/12/19 at 10:00 Levalbuterol (Xopenex Hfa) 4 puff Q6H RESP THERAPY INH Last administered on 07/04/19 08:03; Admin Dose 4 PUFF; Start 06/12/19 at 20:00 Ipratropium [place] (Atrovent Hfa) 4 puff Q6H RESP THERAPY INH Last administe red on 07/04/19 08:03; Admin Dose 4 PUFF; Start 06/12/19 at 20:00 Docusate Sodium (Colace Liquid Cup) 100 mg BID GTB Last administered on 07/04/19 09:04; Admin Dose 100 MG; Start 06/14/19 at 12:30 Insulin Aspart (Novolog Insulin Pen) NOVOLOG *MILD* ALGORI... Q4 SC Last administered on 07/04/19 09:10; Admin Dose 1 UNIT; Start 06/16/19 at 21:00 Propofol 100 ml @ 1.656 mls/ hr Q12H IV Last administered on 07/04/19 07:21; Admin Dose 9.936 MLS/HR; Start 06/18/19 at 10:00 Lactobacillus Acidophilus/ Rhamnosus (Culturelle) 1 cap TID PO Last administered on 07/04/19 09:03; Admin Dose 1 CAP; Start 06/18/19 at 21:00 Eye Lubricant (Artificial Tears Oph) 2 drop QID BOTH EYES Last administered on 07/04/19 09:03; Admin Dose 2 DROP; Start 06/23/19 at 09:30 Eye Lubricant (Akwa Oint) 1 applic Q6 BOTH EYES Last administered on 07/04/19 05:17; Admin Dose 1 APPLIC; Start 06/23/19 at 12:00 Potassium Chloride (Potassium Chloride Pwd/Soln) 20 meq PER PROTOCOL PRN GTB POTASSIUM REPLACEMENT PROTOCOL Last administered on 07/04/19 09:05; Admin Dose 20 MEQ; Start 06/21/19 at 09:30 Potassium Chloride (Potassium Chloride Pwd/Soln) 30 meq PER PROTOCOL PRN GTB POTASSIUM REPLACEMENT PROTOCOL Last administered on 06/27/19 21:06; Admin Dose 30 MEQ; Start 06/21/19 at 09:30 Potassium Chloride (Potassium Chloride Pwd/Soln) 40 meq PER PROTOCOL PRN GTB POTASSIUM REPLACEMENT PROTOCOL Last administered on 06/30/19 08:33; Admin Dose 40 MEQ; Start 06/21/19 at 09:30 Hydrocortisone (Solu-Cortef) 20 mg Q8 IV Last administered on 07/04/19 05:17; Admin Dose 20 MG; Start 06/27/19 at 14:00 Caspofungin 50 mg/ Sodium Chloride 250 ml @ 250 mls/hr Q24H IVPB Last administered on 07/03/19 14:13; Admin Dose 250 MLS/HR; Start 07/03/19 at 15:30 Insulin Glargine (Lantus) 8 units DAILY@0800 SC ; Start 07/05/19 at 08:00 Assessment/Plan Hospital Course (Demo Recall) Assessment 1. Acute hypoxic respiratory failure with ARDS 2. Vegetative state 3. Persistent leukocytosis status post refractory septic shock 4. Status post thrombus cytopenia Plan 1. Continue mechanical ventilation 2. Continue tube feeding as tolerated 3. Family requesting several days prior to removal of mechanical ventilation hopefully this weekend. Care time 40 minutes Bioethics consultation LAVERNE HYDE MD, [facility] Jul 04, 2019 09:32
--- NOTE | 2019-07-04 09:49 | PN ---
Date/Time of Note Date/Time of Note DATE: 07/04/19 TIME: 09:45 Assessment/Plan VTE Prophylaxis Risk score (from Nsg)>0 risk: 13 SCD applied (from Nsg): Yes Pharmacological prophylaxis: NA/contraindicated Pharm contraindication: anticoag not tolerated Lines/Catheters IV Catheter Type (from Nrsg): PICC Line Central line still needed: Yes Urinary Cath still in place: Yes Reason Cath still needed: terminal illness/intractable pain Assessment/Plan Assessment/Plan 1. Acute hypoxic respiratory failure, ARDS secondary to sepsis - Per son, will plan for terminal extubation and comfort measures on Sunday. If does not proceed, will take case to bioethics - no changes overnight. still remains on mechanical ventilation at high O2 and PEEP - Pulm on board and appreciate recommendations 2. Multifocal pneumonia - Sputum cx noted with MRSA and Bridget - ID on board and appreciate recommendations. 3. Abdominal distension - KUB noted and US with small ascites - most likely secondary to anasarca. 4. Atrial fibrillation with RVR- resolved - back in sinus rhythm - Cardiology consultation appreciated 5. Non-ST elevated AL - Cardiology consultation appreciated and will continue current medications - continue aspirin and statin 6. Thrombocytopenia- stable - no need for transfusions at this time 7. Anemia of chronic disease - stable - no fatou bleeding appreciated 8. Chronic dysphasia - Patient has PEG tube 9. Diabetes mellitus - decreased Lantus to 8 given persistent hypoglycemia 10. Chronic encephalopathy - CT of the brain initially showed alarming findings however there appears to be a mixup with patient's name, patient's actual name is Trey Roberts, [id number]. Neurosurgeon was initially consulted for possible brain bleed and other findings however when comparing to the patient's actual chart in 2013, neurosurgeon reviewed the CT and MRI and found a similar findings with no acute emergent change. - Monitor closely, patient appears to be at baseline 11. Dyslipidemia - Continue home meds 12. Mood disorder - Continue home meds 13. Chronic kidney disease - nephrology consultation appreciated and renal function returning to baseline 14. Failure to thrive - now DNR per families request 15. Anasarca - diuretics held given elevated creatinine 16. Disposition - Per son, will plan for terminal extubation and comfort measures on Sunday >25 minutes of critical care time spent with patient Result Diagram: 07/03/19 0400 07/03/19 0400 Results 24hrs Laboratory Tests Test 07/03/19 14:06 07/03/19 17:53 07/03/19 20:27 07/04/19 00:53 Bedside Glucose 161 111 93 71 Test 07/04/19 05:04 07/04/19 06:03 07/04/19 09:00 Bedside Glucose 68 L 99 147 Subjective 24 Hr Interval Summary Free Text/Dictation Patient remains stable. Per nursing, will open eyes but does not track or follow commands. Still requiring mechanical ventilation. Exam/Review of Systems Exam Vitals Vital Signs Date Temp Pulse Resp B/P (MAP) Pulse Ox O2 O2 Flow FiO2 Time Delivery Rate 07/04/19 79 12 134/76 97 Mechanical 05:30 (95) Ventilator 07/04/19 90 05:30 07/04/19 98.5 00:00 Intake and Output 07/03/19 07/03/19 07/04/19 1515:00 23:00 07:00 IntakeIntake Total 350 ml 430 ml 600 ml OutputOutput Total 400 ml 280 ml 310 ml BalanceBalance -50 ml 150 ml 290 ml Exam General: remains intubated, sedated Neck: Supple, edematous Respiratory: Coarse to auscultation bilaterally. no wheezing Cardiovascular: S1, S2, regular rate and rhythm, no obvious murmurs Gastrointestinal: soft, protuberant, non-tender to palpation, bowel sounds heard. PEG in place Neurological: Moves all extremities spontaneously to noxious stimuli Skin: No new skin lesions Ext: gross anasarca UE and LE b/l Results Results 24hrs Laboratory Tests Test 07/03/19 14:06 07/03/19 17:53 07/03/19 20:27 07/04/19 00:53 Bedside Glucose 161 111 93 71 Test 07/04/19 05:04 07/04/19 06:03 07/04/19 09:00 Bedside Glucose 68 L 99 147 Medications Medication Current Medications IV Flush (NS 3 ml) 3 ml PER PROTOCOL IV ; Start 06/10/19 at 12:00 Ondansetron HCl (Zofran Inj) 4 mg Q6H PRN IV NAUSEA/VOMITING; Start 06/10/19 at 12:00 Acetaminophen (Tylenol Tab) 650 mg Q6H PRN PO .PAIN 1-3 OR TEMP Last administered on 06/13/19at 15:52; Admin Dose 650 MG; Start 06/10/19 at 12:00 Acetaminophen/ Hydrocodone Bitart ([place] (5/325)) 1 tab Q6H PRN PO .PAIN 4-6; Start 06/10/19 at 12:00 Morphine Sulfate (morphine) 2 mg Q4H PRN IV .PAIN 7-10 Last administered on 06/15/19 16:57; Admin Dose 2 MG; Start 06/10/19 at 12:00 Amiodarone HCl (Cordarone) 100 mg DAILY GTB Last administered on 07/04/19 09:04; Admin Dose 100 MG; Start 06/11/19 at 09:00 Atorvastatin Calcium (Lipitor) 20 mg QHS GTB Last administered on 07/03/19 20:24; Admin Dose 20 MG; Start 06/10/19 at 21:00 Levetiracetam (Keppra Liquid) 500 mg BID GTB Last administered on 07/04/19 09:04; Admin Dose 500 MG; Start 06/10/19 at 21:00 Olanzapine (Zyprexa) 5 mg DAILY GTB Last administered on 07/04/19 09:04; Admin Dose 5 MG; Start 06/11/19 at 09:00 Polyethylene Glycol (Miralax) 17 gm DAILY GTB Last administered on 07/04/19 09:04; Admin Dose 17 GM; Start 06/11/19 at 09:00 Miscellaneous Information 1 ea NOTE XX ; Start 06/10/19 at 14:00 Glucose (Glutose) 15 gm Q15M PRN PO DECREASED GLUCOSE; Start 06/10/19 at 14:00 Glucose (Glutose) 22.5 gm Q15M PRN PO DECREASED GLUCOSE; Start 06/10/19 at 14:00 Dextrose (D50w Syringe) 25 ml Q15M PRN IV DECREASED GLUCOSE Last administered on 07/04/19 05:11; Admin Dose 25 ML; Start 06/10/19 at 14:00 Dextrose (D50w Syringe) 50 ml Q15M PRN IV DECREASED GLUCOSE Last administered o n 07/02/19 02:45; Admin Dose 50 ML; Start 06/10/19 at 14:00 Glucagon (Glucagen) 1 mg Q15M PRN IM DECREASED GLUCOSE; Start 06/10/19 at 14:00 Glucose (Glutose) 15 gm Q15M PRN BUCCAL DECREASED GLUCOSE; Start 06/10/19 at 14:00 IV Flush (NS 10 ml) 10 ml [id number] PRN IV Line Patency; Start 06/10/19 at 16:00 Fluvoxamine Maleate (Fluvoxamine Maleate) 25 mg DAILY GTB Last administered on 07/04/19 09:04; Admin Dose 25 MG; Start 06/11/19 at 09:00 Aspirin (Aspirin) 81 mg DAILY PEG Last administered on 07/04/19 09:04; Admin Dose 81 MG; Start 06/11/19 at 09:00 Heparin Sodium (Porcine) (Heparin (5000 Units/1ml)) 5,000 unit Q8 SC Last administered on 06/14/19 06:01; Admin Dose 5,000 UNIT; Start 06/11/19 at 14:00; Status Hold Ipratropium [place] (Atrovent 0.02% (Neb)) 0.5 mg Q4H RESP THERAPY PRN HHN SHORTNESS OF BREATH; Start 06/12/19 at 10:00 Levalbuterol (Xopenex Neb) 1.25 mg Q4H RESP THERAPY PRN HHN shortness of breath; Start 06/12/19 at 10:00 Fentanyl 100 ml @ 2.5 mls/hr TITRATE IV Last administered on 07/04/19 00:09; Admin Dose 10 MLS/HR; Start 06/12/19 at 10:00 Levalbuterol (Xopenex Hfa) 4 puff Q6H RESP THERAPY INH Last administered on 07/04/19 08:03; Admin Dose 4 PUFF; Start 06/12/19 at 20:00 Ipratropium [place] (Atrovent Hfa) 4 puff Q6H RESP THERAPY INH Last administered on 07/04/19 08:03; Admin Dose 4 PUFF; Start 06/12/19 at 20:00 Docusate Sodium (Colace Liquid Cup) 100 mg BID GTB Last administered on 07/04/19 09:04; Admin Dose 100 MG; Start 06/14/19 at 12:30 Insulin Aspart (Novolog Insulin Pen) NOVOLOG *MILD* ALGORI... Q4 SC Last administered on 07/04/19 09:10; Admin Dose 1 UNIT; Start 06/16/19 at 21:00 Propofol 100 ml @ 1.656 mls/ hr Q12H IV Last administered on 07/04/19 07:21; Admin Dose 9.936 MLS/HR; Start 06/18/19 at 10:00 Lactobacillus Acidophilus/ Rhamnosus (Culturelle) 1 cap TID PO Last administered on 07/04/19 09:03; Admin Dose 1 CAP; Start 06/18/19 at 21:00 Eye Lubricant (Artificial Tears Oph) 2 drop QID BOTH EYES Last administered on 07/04/19 09:03; Admin Dose 2 DROP; Start 06/23/19 at 09:30 Eye Lubricant (Akwa Oint) 1 applic Q6 BOTH EYES Last administered on 07/04/19 05:17; Admin Dose 1 APPLIC; Start 06/23/19 at 12:00 Potassium Chloride (Potassium Chloride Pwd/Soln) 20 meq PER PROTOCOL PRN GTB POTASSIUM REPLACEMENT PROTOCOL Last administered on 07/04/19 09:05; Admin Dose 20 MEQ; Start 06/21/19 at 09:30 Potassium Chloride (Potassium Chloride Pwd/Soln) 30 meq PER PROTOCOL PRN GTB POTASSIUM REPLACEMENT PROTOCOL Last administered on 06/27/19 21:06; Admin Dose 30 MEQ; Start 06/21/19 at 09:30 Potassium Chloride (Potassium Chloride Pwd/Soln) 40 meq PER PROTOCOL PRN GTB POTASSIUM REPLACEMENT PROTOCOL Last administered on 06/30/19 08:33; Admin Dose 40 MEQ; Start 06/21/19 at 09:30 Hydrocortisone (Solu-Cortef) 20 mg Q8 IV Last administered on 07/04/19 05:17; Admin Dose 20 MG; Start 06/27/19 at 14:00 Caspofungin 50 mg/ Sodium Chloride 250 ml @ 250 mls/hr Q24H IVPB Last administered on 07/03/19 14:13; Admin Dose 250 MLS/HR; Start 07/03/19 at 15:30 Insulin Glargine (Lantus) 8 units DAILY@0800 SC ; Start 07/05/19 at 08:00 SHENG DONNELLY MD Jul 04, 2019 09:49
--- NOTE | 2019-07-04 12:53 | CONS ---
Assessment/Plan Assessment/Plan Assessment/Plan (Daily) 1. acute Hypernatremia due to severe dehydration -resolved 2. acute Hyperkalemia due to FLOYD - Resolved 3. acute kidney injury on CKD III due to ATN from sepsis and Prerenal azotemia 4 . Septic shock due to multifocal PNA and UTI 5. Acute hypoxic respiratory failure due to PNA and Septic shock - Failed BIPAP- Intubated on 06/12/19 , 6. H/O severe dementia 7. H/O HTN 8. H/O HL 9. SNF resident 10. acute on chronic encephalopathy 11 h/o Dysphagia S/p G tube placement 12. Hypocalcemia 13. UTI with Urine cx growing ESBL Klebsiella Plan: BUN/Cr still high 103/1.09, Na 145, Hco3 29- no labs today to review yet, Poor candidate for dialysis due to age, comorbidiites, consider palliative care follow up and comfort care off all abx now, ID following Ventilator Management as per pulmonary -- not doing well, still requiring high PEEP DNR code status, palliative care consulted on the case will follow up Consultation Date/Type/Reason Admit Date/Time Jun 10, 2019 at 12:38 Initial Consult Date 06/11/19 Type of Consult NEPHROLOGY Requesting Provider: MALINI GOMEZ Date/Time of Note DATE: 07/04/19 TIME: 12:53 Exam/Review of Systems Exam Vitals Vital Signs Date Temp Pulse Resp B/P (MAP) Pulse Ox O2 O2 Flow FiO2 Time Delivery Rate 07/04/19 84 26 96 80 11:45 07/04/19 140/85 10:30 (103) 07/04/19 Mechanical 10:00 Ventilator 07/04/19 98.7 08:00 Intake and Output 07/03/19 07/03/19 07/04/19 1515:00 23:00 07:00 IntakeIntake Total 350 ml 430 ml 600 ml OutputOutput Total 400 ml 280 ml 310 ml BalanceBalance -50 ml 150 ml 290 ml Exam Constitutional: non-verbal, other (intubated, unresponsive) Respiratory: normal air movement Cardiovascular: regular rate and rhythm Gastrointestinal: soft, distended Musculoskeletal: nl extremities to inspection Extremities: normal pulses, edema (diffuse anasarca) Neurological: lethargic, unresponsive Skin: other (diffuse anasarca) Results Result Diagram: 8/8/19 0400 8/8/19 0400 Results 24hrs Laboratory Tests Test 07/03/19 14:06 07/03/19 17:53 07/03/19 20:27 07/04/19 00:53 Bedside Glucose 161 111 93 71 Test 07/04/19 05:04 07/04/19 06:03 07/04/19 09:00 Bedside Glucose 68 L 99 147 Medications Medication Current Medications IV Flush (NS 3 ml) 3 ml PER PROTOCOL IV ; Start 06/10/19 at 12:00 Ondansetron HCl (Zofran Inj) 4 mg Q6H PRN IV NAUSEA/VOMITING; Start 06/10/19 at 12:00 Acetaminophen (Tylenol Tab) 650 mg Q6H PRN PO .PAIN 1-3 OR TEMP Last administered on 06/13/19at 15:52; Admin Dose 650 MG; Start 06/10/19 at 12:00 Acetaminophen/ Hydrocodone Bitart ([place] (5/325)) 1 tab Q6H PRN PO .PAIN 4-6; Start 06/10/19 at 12:00 Morphine Sulfate (morphine) 2 mg Q4H PRN IV .PAIN 7-10 Last administered on 06/15/19at 16:57; Admin Dose 2 MG; Start 06/10/19 at 12:00 Amiodarone HCl (Cordarone) 100 mg DAILY GTB Last administered on 07/04/19 09:04; Admin Dose 100 MG; Start 06/11/19 at 09:00 Atorvastatin Calcium (Lipitor) 20 mg QHS GTB Last administered on 07/03/19 20:24; Admin Dose 20 MG; Start 06/10/19 at 21:00 Levetiracetam (Keppra Liquid) 500 mg BID GTB Last administered on 07/04/19 09:04; Admin Dose 500 MG; Start 06/10/19 at 21:00 Olanzapine (Zyprexa) 5 mg DAILY GTB Last administered on 07/04/19 09:04; Admin Dose 5 MG; Start 06/11/19 at 09:00 Polyethylene Glycol (Miralax) 17 gm DAILY GTB Last administered on 07/04/19 09:04; Admin Dose 17 GM; Start 06/11/19 at 09:00 Miscellaneous Information 1 ea NOTE XX ; Start 06/10/19 at 14:00 Glucose (Glutose) 15 gm Q15M PRN PO DECREASED GLUCOSE; Start 06/10/19 at 14:00 Glucose (Glutose) 22.5 gm Q15M PRN PO DECREASED GLUCOSE; Start 06/10/19 at 14:00 Dextrose (D50w Syringe) 25 ml Q15M PRN IV DECREASED GLUCOSE Last administered on 07/04/19at 05:11; Admin Dose 25 ML; Start 06/10/19 at 14:00 Dextrose (D50w Syringe) 50 ml Q15M PRN IV DECREASED GLUCOSE Last administered on 07/02/19at 02:45; Admin Dose 50 ML; Start 06/10/19 at 14:00 Glucagon (Glucagen) 1 mg Q15M PRN IM DECREASED GLUCOSE; Start 06/10/19 at 14:00 Glucose (Glutose) 15 gm Q15M PRN BUCCAL DECREASED GLUCOSE; Start 06/10/19 at 14:00 IV Flush (NS 10 ml) 10 ml [id number] PRN IV Line Patency; Start 06/10/19 at 16:00 Fluvoxamine Maleate (Fluvoxamine Maleate) 25 mg DAILY GTB Last administered on 07/04/19at 09:04; Admin Dose 25 MG; Start 06/11/19 at 09:00 Aspirin (Aspirin) 81 mg DAILY PEG Last administered on 07/04/19at 09:04; Admin Dose 81 MG; Start 06/11/19 at 09:00 Heparin Sodium (Porcine) (Heparin (5000 Units/1ml)) 5,000 unit Q8 SC Last administered on 06/14/19at 06:01; Admin Dose 5,000 UNIT; Start 06/11/19 at 14:00; Status Hold Ipratropium [place] (Atrovent 0.02% (Neb)) 0.5 mg Q4H RESP THERAPY PRN HHN SHORTNESS OF BREATH; Start 06/12/19 at 10:00 Levalbuterol (Xopenex Neb) 1.25 mg Q4H RESP THERAPY PRN HHN shortness of breath; Start 06/12/19 at 10:00 Fentanyl 100 ml @ 2.5 mls/hr TITRATE IV Last administered on 07/04/19at 10:48; Admin Dose 7.5 MLS/HR; Start 06/12/19 at 10:00 Levalbuterol (Xopenex Hfa) 4 puff Q6H RESP THERAPY INH Last administered on 07/04/19 08:03; Admin Dose 4 PUFF; Start 06/12/19 at 20:00 Ipratropium [place] (Atrovent Hfa) 4 puff Q6H RESP THERAPY INH Last administered on 07/04/19 08:03; Admin Dose 4 PUFF; Start 06/12/19 at 20:00 Docusate Sodium (Colace Liquid Cup) 100 mg BID GTB Last administered on 07/04/19 09:04; Admin Dose 100 MG; Start 06/14/19 at 12:30 Insulin Aspart (Novolog Insulin Pen) NOVOLOG *MILD* ALGORI... Q4 SC Last administered on 07/04/19 09:10; Admin Dose 1 UNIT; Start 06/16/19 at 21:00 Propofol 100 ml @ 1.656 mls/ hr Q12H IV Last administered on 07/04/19 07:21; Admin Dose 9.936 MLS/HR; Start 06/18/19 at 10:00 Lactobacillus Acidophilus/ Rhamnosus (Culturelle) 1 cap TID PO Last administered on 07/04/19 09:03; Admin Dose 1 CAP; Start 06/18/19 at 21:00 Eye Lubricant (Artificial Tears Oph) 2 drop QID BOTH EYES Last administered on 07/04/19 09:03; Admin Dose 2 DROP; Start 06/23/19 at 09:30 Eye Lubricant (Akwa Oint) 1 applic Q6 BOTH EYES Last administered on 07/04/19 05:17; Admin Dose 1 APPLIC; Start 06/23/19 at 12:00 Potassium Chloride (Potassium Chloride Pwd/Soln) 20 meq PER PROTOCOL PRN GTB POTASSIUM REPLACEMENT PROTOCOL Last administered on 07/04/19 09:05; Admin Dose 20 MEQ; Start 06/21/19 at 09:30 Potassium Chloride (Potassium Chloride Pwd/Soln) 30 meq PER PROTOCOL PRN GTB POTASSIUM REPLACEMENT PROTOCOL Last administered on 06/27/19 21:06; Admin Dose 30 MEQ; Start 06/21/19 at 09:30 Potassium Chloride (Potassium Chloride Pwd/Soln) 40 meq PER PROTOCOL PRN GTB POTASSIUM REPLACEMENT PROTOCOL Last administered on 8/5/19at 08:33; Admin Dose 40 MEQ; Start 06/21/19 at 09:30 Hydrocortisone (Solu-Cortef) 20 mg Q8 IV Last administered on 07/04/19at 05:17; Admin Dose 20 MG; Start 06/27/19 at 14:00 Caspofungin 50 mg/ Sodium Chloride 250 ml @ 250 mls/hr Q24H IVPB Last administered on 07/03/19at 14:13; Admin Dose 250 MLS/HR; Start 07/03/19 at 15:30 Insulin Glargine (Lantus) 8 units DAILY@0800 SC ; Start 07/05/19 at 08:00 GERMAN FELIX MD Jul 04, 2019 12:53
--- NOTE | 2019-07-04 13:40 | CONS ---
Assessment/Plan Assessment/Plan Hospital Course (Demo Recall) SUBJECTIVE: No acute changes overnight patient remains intubated noncommunicative she is in no distress afebrile no labs today. Repeat blood cultures negative. Urine culture repeated on June 30 grew Bridget glabrata Antimicrobials: Cancidas INDWELLINGS: Endotracheal tube, PEG, Dial, PICC line. PHYSICAL EXAMINATION: GENERAL: Chronically ill-appearing, elderly woman in no distress. HEENT: Head atraumatic, normocephalic. NECK: Supple. Trachea midline. CHEST: Rise symmetrical. Breath sounds diminished to bases. HEART: S1, S2. ABDOMEN: Distended. Bowel tones are hypoactive. EXTREMITIES: Without cyanosis. SKIN: Patient has severe anasarca. ASSESSMENT: 1. Leukocytosis, possibly steroid-induced 2. Acute respiratory failure 3. Healthcare associated pneumonia 4. C glabrata UTI 5. Dysphagia 6. Atrial fibrillation and non-ST elevation ID 9. Acute kidney insufficiency 10. DNR Plan: Clinically unchanged, continue present care, pending family decision regarding goals of care Consultation Date/Type/Reason Admit Date/Time Jun 10, 2019 at 12:38 Initial Consult Date 06/11/19 Type of Consult id Requesting Provider: MALINI GOMEZ Date/Time of Note DATE: 07/04/19 TIME: 13:40 Exam/Review of Systems Exam Vitals Vital Signs Date Temp Pulse Resp B/P (MAP) Pulse Ox O2 O2 Flow FiO2 Time Delivery Rate 07/04/19 84 26 96 80 11:45 07/04/19 140/85 10:30 (103) 07/04/19 Mechanical 10:00 Ventilator 07/04/19 98.7 08:00 Intake and Output 07/03/19 07/03/19 07/04/19 1515:00 23:00 07:00 IntakeIntake Total 350 ml 430 ml 600 ml OutputOutput Total 400 ml 280 ml 310 ml BalanceBalance -50 ml 150 ml 290 ml Results Result Diagram: 07/03/1939907/03/19 040 Results 24hrs Laboratory Tests Test 07/03/19 14:06 07/03/19 17:53 07/03/19 20:27 07/04/19 00:53 Bedside Glucose 161 111 93 71 Test 07/04/19 05:04 07/04/19 06:03 07/04/19 09:00 Bedside Glucose 68 L 99 147 Medications Medication Current Medications IV Flush (NS 3 ml) 3 ml PER PROTOCOL IV ; Start 06/10/19 at 12:00 Ondansetron HCl (Zofran Inj) 4 mg Q6H PRN IV NAUSEA/VOMITING; Start 06/10/19 at 12:00 Acetaminophen (Tylenol Tab) 650 mg Q6H PRN PO .PAIN 1-3 OR TEMP Last administered on 06/13/19 15:52; Admin Dose 650 MG; Start 06/10/19 at 12:00 Acetaminophen/ Hydrocodone Bitart ([place] (5/325)) 1 tab Q6H PRN PO .PAIN 4-6; Start 06/10/19 at 12:00 Morphine Sulfate (morphine) 2 mg Q4H PRN IV .PAIN 7-10 Last administered on 06/15/19at 16:57; Admin Dose 2 MG; Start 06/10/19 at 12:00 Amiodarone HCl (Cordarone) 100 mg DAILY GTB Last administered on 07/04/19 0 9:04; Admin Dose 100 MG; Start 06/11/19 at 09:00 Atorvastatin Calcium (Lipitor) 20 mg QHS GTB Last administered on 07/03/19 20:24; Admin Dose 20 MG; Start 06/10/19 at 21:00 Levetiracetam (Keppra Liquid) 500 mg BID GTB Last administered on 07/04/19 09:04; Admin Dose 500 MG; Start 06/10/19 at 21:00 Olanzapine (Zyprexa) 5 mg DAILY GTB Last administered on 07/04/19 09:04; Admin Dose 5 MG; Start 06/11/19 at 09:00 Polyethylene Glycol (Miralax) 17 gm DAILY GTB Last administered on 07/04/19 09:04; Admin Dose 17 GM; Start 06/11/19 at 09:00 Miscellaneous Information 1 ea NOTE XX ; Start 06/10/19 at 14:00 Glucose (Glutose) 15 gm Q15M PRN PO DECREASED GLUCOSE; Start 06/10/19 at 14:00 Glucose (Glutose) 22.5 gm Q15M PRN PO DECREASED GLUCOSE; Start 06/10/19 at 14:00 Dextrose (D50w Syringe) 25 ml Q15M PRN IV DECREASED GLUCOSE Last administered on 07/04/19 05:11; Admin Dose 25 ML; Start 06/10/19 at 14:00 Dextrose (D50w Syringe) 50 ml Q15M PRN IV DECREASED GLUCOSE Last administered on 07/02/19 02:45; Admin Dose 50 ML; Start 06/10/19 at 14:00 Glucagon (Glucagen) 1 mg Q15M PRN IM DECREASED GLUCOSE; Start 06/10/19 at 14:00 Glucose (Glutose) 15 gm Q15M PRN BUCCAL DECREASED GLUCOSE; Start 06/10/19 at 14:00 IV Flush (NS 10 ml) 10 ml [id number] PRN IV Line Patency; Start 06/10/19 at 16:00 Fluvoxamine Maleate (Fluvoxamine Maleate) 25 mg DAILY GTB Last administered on 07/04/19 09:04; Admin Dose 25 MG; Start 06/11/19 at 09:00 Aspirin (Aspirin) 81 mg DAILY PEG Last administered on 07/04/19 09:04; Admin Dose 81 MG; Start 06/11/19 at 09:00 Heparin Sodium (Porcine) (Heparin (5000 Units/1ml)) 5,000 unit Q8 SC Last administered on 06/14/19 06:01; Admin Dose 5,000 UNIT; Start 06/11/19 at 14:00; Status Hold Ipratropium [place] (Atrovent 0.02% (Neb)) 0.5 mg Q4H RESP THERAPY PRN HHN SHORTNESS OF BREATH; Start 06/12/19 at 10:00 Levalbuterol (Xopenex Neb) 1.25 mg Q4H RESP THERAPY PRN HHN shortness of breath; Start 06/12/19 at 10:00 Fentanyl 100 ml @ 2.5 mls/hr TITRATE IV Last administered on 07/04/19 10:48; Admin Dose 7.5 MLS/HR; Start 06/12/19 at 10:00 Levalbuterol (Xopenex Hfa) 4 puff Q6H RESP THERAPY INH Last administered on 07/04/19 13:33; Admin Dose 4 PUFF; Start 06/12/19 at 20:00 Ipratropium [place] (Atrovent Hfa) 4 puff Q6H RESP THERAPY INH Last administered on 07/04/19 13:33; Admin Dose 4 PUFF; Start 06/12/19 at 20:00 Docusate Sodium (Colace Liquid Cup) 100 mg BID GTB Last administered on 07/04/19 09:04; Admin Dose 100 MG; Start 06/14/19 at 12:30 Insulin Aspart (Novolog Insulin Pen) NOVOLOG *MILD* ALGORI... Q4 SC Last administered on 07/04/19 09:10; Admin Dose 1 UNIT; Start 06/16/19 at 21:00 Propofol 100 ml @ 1.656 mls/ hr Q12H IV Last administered on 07/04/19 07:21; Admin Dose 9.936 MLS/HR; Start 06/18/19 at 10:00 Lactobacillus Acidophilus/ Rhamnosus (Culturelle) 1 cap TID PO Last administered on 07/04/19 09:03; Admin Dose 1 CAP; Start 06/18/19 at 21:00 Eye Lubricant (Artificial Tears Oph) 2 drop QID BOTH EYES Last administered on 07/04/19 09:03; Admin Dose 2 DROP; Start 06/23/19 at 09:30 Eye Lubricant (Akwa Oint) 1 applic Q6 BOTH EYES Last administered on 07/04/19 05:17; Admin Dose 1 APPLIC; Start 06/23/19 at 12:00 Potassium Chloride (Potassium Chloride Pwd/Soln) 20 meq PER PROTOCOL PRN GTB POTASSIUM REPLACEMENT PROTOCOL Last administered on 07/04/19 09:05; Admin Dose 20 MEQ; Start 06/21/19 at 09:30 Potassium Chloride (Potassium Chloride Pwd/Soln) 30 meq PER PROTOCOL PRN GTB POTASSIUM REPLACEMENT PROTOCOL Last administered on 06/27/19 21:06; Admin Dose 30 MEQ; Start 06/21/19 at 09:30 Potassium Chloride (Potassium Chloride Pwd/Soln) 40 meq PER PROTOCOL PRN GTB POTASSIUM REPLACEMENT PROTOCOL Last administered on 06/30/19 08:33; Admin Dose 40 MEQ; Start 06/21/19 at 09:30 Hydrocortisone (Solu-Cortef) 20 mg Q8 IV Last administered on 07/04/19 05:17; Admin Dose 20 MG; Start 06/27/19 at 14:00 Caspofungin 50 mg/ Sodium Chloride 250 ml @ 250 mls/hr Q24H IVPB Last administered on 07/03/19at 14:13; Admin Dose 250 MLS/HR; Start 07/03/19 at 15:30 Insulin Glargine (Lantus) 8 units DAILY@0800 SC ; Start 07/05/19 at 08:00 JACKIE BRUNNER NP Jul 04, 2019 13:40
[2019-07-04] MEDS: CASPOFUNGIN 50 MG in SOD CHLORIDE 0.9% 250 ML IVPB SCH (14:12)
[2019-07-04] MEDS: ATORVASTATIN 20 MG TAB GTB SCH (21:02)
[2019-07-05] VITALS (58 sets, daily range): BP systolic 122–156; BP diastolic 75–96; PULSE 82–107; RESP 25–52
[2019-07-05] MEDS: INSULIN ASPART [NOVOLOG] 3 ML PEN SC SCH ×6 (00:41→20:47)
[2019-07-05] MEDS: OCULAR LUBRICANT 3.5 GM OPH OINT BOTH EYES SCH ×4 (00:41→16:43)
[2019-07-05] MEDS: PROPOFOL 100 ML IV SCH ×3 (01:26→20:45)
[2019-07-05] MEDS: IPRATROPIUM (HFA) 12.9 GM INHALER INH SCH ×4 (01:34→20:41)
[2019-07-05] MEDS: LEVALBUTEROL (HFA) 15 GM INHALER INH SCH ×4 (01:34→20:41)
[2019-07-05] MEDS: HYDROCORTISONE 100 MG INJ IV SCH ×3 (05:18→21:48)
[2019-07-05] MEDS: LEVETIRACETAM (100 MG/ML) 5ML CUP GTB SCH ×2 (08:16→20:45)
[2019-07-05] MEDS: POLYETHYLENE GLYCOL 17 GM PACKET GTB SCH (08:16)
[2019-07-05] MEDS: DOCUSATE SODIUM 10 MG/ML (10ML CUP) GTB SCH ×2 (08:16→20:45)
[2019-07-05] MEDS: OLANZAPINE 5 MG TAB GTB SCH (08:16)
[2019-07-05] MEDS: FLUVOXAMINE MALEATE 25 MG TABLET GTB SCH (08:16)
[2019-07-05] MEDS: ASPIRIN 81 MG TAB PEG SCH (08:16)
[2019-07-05] MEDS: LACTOBACILLUS RHAMNOSUS CAP PO SCH ×3 (08:16→20:46)
[2019-07-05] MEDS: AMIODARONE 200 MG TAB GTB SCH (08:17)
[2019-07-05] MEDS: INSULIN GLARGINE [LANTus] (100 UNITS/ML) SYG SC SCH (08:25)
[2019-07-05] MEDS: BALSAM PERU/CASTOR OIL 60 GM TUBE TOP SCH (08:27)
[2019-07-05] MEDS: ARTIFICIAL TEARS 15 ML OPH BOTH EYES SCH ×4 (09:17→20:45)
--- NOTE | 2019-07-05 09:21 | CONS ---
Consult Date/Type/Reason Admit Date/Time Jun 10, 2019 at 12:38 Initial Consult Date 06/11/19 Type of Consult Pulmonary Requesting Provider: MALINI GOMEZ Date/Time of Note DATE: 07/05/19 TIME: 09:20 Subjective No changes. Remains unresponsive on mechanical ventilation. Currently hemodynamically stable. Requiring a PEEP of 10 at 5 to 80%. Pending family dec ision regarding goals of care. Objective Vital Signs Date Temp Pulse Resp B/P (MAP) Pulse Ox O2 O2 Flow FiO2 Time Delivery Rate 07/05/19 106 26 156/96 93 08:30 (116) 07/05/19 Mechanical 08:00 Ventilator 07/05/19 80 08:00 07/05/19 98.0 04:00 Intake and Output 07/04/19 07/04/19 07/05/19 1414:59 22:59 06:59 IntakeIntake Total 625.0 ml 799.6 ml 779.236 ml OutputOutput Total 400 ml 390 ml 370 ml BalanceBalance 225.0 ml 409.6 ml 409.236 ml Exam GENERAL: The lady orally intubated, unresponsive off sedation VITAL SIGNS: per chart NECK: Supple. No JVD or lymphadenopathy. CARDIAC EXAM: S1, S2. No added sounds or murmurs. CHEST: Diminished air entry bilaterally ABDOMEN: Soft, nontender. No guarding or rebound. EXTREMITIES: No cyanosis, clubbing edema +2 NEUROLOGIC: Generalized weakness. Vent Setting Ventilator Support Mode: PC Fraction of Inspired Oxygen pe: 80 Positive End Expiratory Pressu: 10.0 Results/Medications Result Diagram: 07/05/19 0445 07/05/19 0445 Results 24 hrs Laboratory Tests Test 07/04/19 14:14 07/04/19 17:17 07/04/19 21:02 07/05/19 00:40 Bedside Glucose 119 175 114 124 Test 07/05/19 04:45 07/05/19 05:20 White Blood Count 15.8 H Red Blood Count 2.85 L Hemoglobin 8.3 L Hematocrit 28.4 L Mean Corpuscular 99.6 Volume Mean Corpuscular 29.1 Hemoglobin Mean Corpuscular 29.2 L Hemoglobin Concent Red Cell Distribution 14.4 Width Platelet Count 121 L Mean Platelet Volume 11.0 H Immature Granulocytes 0.800 H % Neutrophils % 82.3 H Lymphocytes % 4.8 L Monocytes % 5.2 Eosinophils % 6.6 Basophils % 0.3 Nucleated Red Blood 0.0 Cells % Immature Granulocytes 0.120 H # Neutrophils # 13.0 H Lymphocytes # 0.8 Monocytes # 0.8 Eosinophils # 1.1 H Basophils # 0.0 Nucleated Red Blood 0.0 Cells # Sodium Level 146 H Potassium Level 3.9 Chloride Level 108 Carbon Dioxide Level 36 H Anion Gap 2 L Blood Urea Nitrogen 87 H Creatinine 1.02 H Est Glomerular Filtrat Rate mL/min Glucose Level 137 Calcium Level 8.0 L Bedside Glucose 136 Medications Current Medications IV Flush (NS 3 ml) 3 ml PER PROTOCOL IV ; Start 06/10/19 at 12:00 Ondansetron HCl (Zofran Inj) 4 mg Q6H PRN IV NAUSEA/VOMITING; Start 06/10/19 at 12:00 Acetaminophen (Tylenol Tab) 650 mg Q6H PRN PO .PAIN 1-3 OR TEMP Last administered on 06/13/19 15:52; Admin Dose 650 MG; Start 06/10/19 at 12:00 Acetaminophen/ Hydrocodone Bitart ([place] (5/325)) 1 tab Q6H PRN PO .PAIN 4-6; Start 06/10/19 at 12:00 Morphine Sulfate (morphine) 2 mg Q4H PRN IV .PAIN 7-10 Last administered on 06/15/19at 16:57; Admin Dose 2 MG; Start 06/10/19 at 12:00 Amiodarone HCl (Cordarone) 100 mg DAILY GTB Last administered on 07/05/19 08:17; Admin Dose 100 MG; Start 06/11/19 at 09:00 Atorvastatin Calcium (Lipitor) 20 mg QHS GTB Last administered on 07/04/19 21:02; Admin Dose 20 MG; Start 06/10/19 at 21:00 Levetiracetam (Keppra Liquid) 500 mg BID GTB Last administered on 07/05/19 08:16; Admin Dose 500 MG; Start 06/10/19 at 21:00 Olanzapine (Zyprexa) 5 mg DAILY GTB Last administered on 07/05/19 08:16; Admin Dose 5 MG; Start 06/11/19 at 09:00 Polyethylene Glycol (Miralax) 17 gm DAILY GTB Last administered on 8/10/19at 08:16; Admin Dose 17 GM; Start 06/11/19 at 09:00 Miscellaneous Information 1 ea NOTE XX ; Start 06/10/19 at 14:00 Glucose (Glutose) 15 gm Q15M PRN PO DECREASED GLUCOSE; Start 06/10/19 at 14:00 Glucose (Glutose) 22.5 gm Q15M PRN PO DECREASED GLUCOSE; Start 06/10/19 at 14:00 Dextrose (D50w Syringe) 25 ml Q15M PRN IV DECREASED GLUCOSE Last administered o n 07/04/19at 05:11; Admin Dose 25 ML; Start 06/10/19 at 14:00 Dextrose (D50w Syringe) 50 ml Q15M PRN IV DECREASED GLUCOSE Last administered on 07/02/19at 02:45; Admin Dose 50 ML; Start 06/10/19 at 14:00 Glucagon (Glucagen) 1 mg Q15M PRN IM DECREASED GLUCOSE; Start 06/10/19 at 14:00 Glucose (Glutose) 15 gm Q15M PRN BUCCAL DECREASED GLUCOSE; Start 06/10/19 at 14:00 IV Flush (NS 10 ml) 10 ml [id number] PRN IV Line Patency; Start 06/10/19 at 16:00 Fluvoxamine Maleate (Fluvoxamine Maleate) 25 mg DAILY GTB Last administered on 07/05/19at 08:16; Admin Dose 25 MG; Start 06/11/19 at 09:00 Aspirin (Aspirin) 81 mg DAILY PEG Last administered on 07/05/19at 08:16; Admin Dose 81 MG; Start 06/11/19 at 09:00 Heparin Sodium (Porcine) (Heparin (5000 Units/1ml)) 5,000 unit Q8 SC Last administered on 06/14/19at 06:01; Admin Dose 5,000 UNIT; Start 06/11/19 at 14:00; Status Hold Ipratropium [place] (Atrovent 0.02% (Neb)) 0.5 mg Q4H RESP THERAPY PRN HHN SHORTNESS OF BREATH; Start 06/12/19 at 10:00 Levalbuterol (Xopenex Neb) 1.25 mg Q4H RESP THERAPY PRN HHN shortness of breath; Start 06/12/19 at 10:00 Fentanyl 100 ml @ 2.5 mls/hr TITRATE IV Last administered on 07/04/19 10:48; Admin Dose 7.5 MLS/HR; Start 06/12/19 at 10:00 Levalbuterol (Xopenex Hfa) 4 puff Q6H RESP THERAPY INH Last administered on 07/05/19 09:04; Admin Dose 4 PUFF; Start 06/12/19 at 20:00 Ipratropium [place] (Atrovent Hfa) 4 puff Q6H RESP THERAPY INH Last administered on 07/05/19 09:04; Admin Dose 4 PUFF; Start 06/12/19 at 20:00 Docusate Sodium (Colace Liquid Cup) 100 mg BID GTB Last administered on 07/05/19 08:16; Admin Dose 100 MG; Start 06/14/19 at 12:30 Insulin Aspart (Novolog Insulin Pen) NOVOLOG *MILD* ALGORI... Q4 SC Last administered on 07/05/19 08:27; Admin Dose 1 UNIT; Start 06/16/19 at 21:00 Propofol 100 ml @ 1.656 mls/ hr Q12H IV Last administered on 07/05/19 01:26; Admin Dose 9.936 MLS/HR; Start 06/18/19 at 10:00 Lactobacillus Acidophilus/ Rhamnosus (Culturelle) 1 cap TID PO Last administered on 07/05/19 08:16; Admin Dose 1 CAP; Start 06/18/19 at 21:00 Eye Lubricant (Artificial Tears Oph) 2 drop QID BOTH EYES Last administered on 07/05/19 09:17; Admin Dose 2 DROP; Start 06/23/19 at 09:30 Eye Lubricant (Akwa Oint) 1 applic Q6 BOTH EYES Last administered on 07/05/19 05:19; Admin Dose 1 APPLIC; Start 06/23/19 at 12:00 Potassium Chloride (Potassium Chloride Pwd/Soln) 20 meq PER PROTOCOL PRN GTB POTASSIUM REPLACEMENT PROTOCOL Last administered on 07/04/19 09:05; Admin Dose 20 MEQ; Start 06/21/19 at 09:30 Potassium Chloride (Potassium Chloride Pwd/Soln) 30 meq PER PROTOCOL PRN GTB POTASSIUM REPLACEMENT PROTOCOL Last administered on 06/27/19 21:06; Admin Dose 30 MEQ; Start 06/21/19 at 09:30 Potassium Chloride (Potassium Chloride Pwd/Soln) 40 meq PER PROTOCOL PRN GTB POTASSIUM REPLACEMENT PROTOCOL Last administered on 06/30/19at 08:33; Admin Dose 40 MEQ; Start 06/21/19 at 09:30 Hydrocortisone (Solu-Cortef) 20 mg Q8 IV Last administered on 07/05/19at 05:18; Admin Dose 20 MG; Start 06/27/19 at 14:00 Caspofungin 50 mg/ Sodium Chloride 250 ml @ 250 mls/hr Q24H IVPB Last administ ered on 07/04/19at 14:12; Admin Dose 250 MLS/HR; Start 07/03/19 at 15:30 Insulin Glargine (Lantus) 8 units DAILY@0800 SC Last administered on 07/05/19at 08:25; Admin Dose 8 UNITS; Start 07/05/19 at 08:00 Assessment/Plan Hospital Course (Demo Recall) Assessment 1. Acute hypoxic respiratory failure with ARDS 2. Vegetative state 3. Persistent leukocytosis status post refractory septic shock 4. Status post thrombus cytopenia Plan 1. Continue mechanical ventilation 2. Continue tube feeding as tolerated 3. Family requesting several days prior to removal of mechanical ventilation hopefully this weekend. Care time 40 minutes Bioethics consultation scheduled for Sunday. LAVERNE HYDE MD, [facility] Jul 05, 2019 09:20
--- NOTE | 2019-07-05 11:17 | CONS ---
Consultation Date/Type/Reason Admit Date/Time Jun 10, 2019 at 12:38 Initial Consult Date 06/11/19 Type of Consult NEPHROLOGY Requesting Provider: MALINI GOMEZ Date/Time of Note DATE: 07/05/19 TIME: 11:16 Exam/Review of Systems Exam Vitals Vital Signs Date Temp Pulse Resp B/P (MAP) Pulse Ox O2 O2 Flow FiO2 Time Delivery Rate 07/05/19 106 26 156/96 93 08:30 (116) 07/05/19 Mechanical 08:00 Ventilator 07/05/19 80 08:00 07/05/19 98.0 04:00 Intake and Output 07/04/19 07/04/19 07/05/19 1515:00 23:00 07:00 IntakeIntake Total 892.5 ml 549.5 ml 779.272 ml OutputOutput Total 400 ml 385 ml 425 ml BalanceBalance 492.5 ml 164.5 ml 354.272 ml Results Result Diagram: 07/05/19 0445 07/05/19 0445 Results 24hrs Laboratory Tests Test 07/04/19 14:14 07/04/19 17:17 07/04/19 21:02 07/05/19 00:40 Bedside Glucose 119 175 114 124 Test 07/05/19 04:45 07/05/19 05:20 White Blood Count 15.8 H Red Blood Count 2.85 L Hemoglobin 8.3 L Hematocrit 28.4 L Mean Corpuscular 99.6 Volume Mean Corpuscular 29.1 Hemoglobin Mean Corpuscular 29.2 L Hemoglobin Concent Red Cell Distribution 14.4 Width Platelet Count 121 L Mean Platelet Volume 11.0 H Immature Granulocytes 0.800 H % Neutrophils % 82.3 H Lymphocytes % 4.8 L Monocytes % 5.2 Eosinophils % 6.6 Basophils % 0.3 Nucleated Red Blood 0.0 Cells % Immature Granulocytes 0.120 H # Neutrophils # 13.0 H Lymphocytes # 0.8 Monocytes # 0.8 Eosinophils # 1.1 H Basophils # 0.0 Nucleated Red Blood 0.0 Cells # Sodium Level 146 H Potassium Level 3.9 Chloride Level 108 Carbon Dioxide Level 36 H Anion Gap 2 L Blood Urea Nitrogen 87 H Creatinine 1.02 H Est Glomerular Filtrat Rate mL/min Glucose Level 137 Calcium Level 8.0 L Bedside Glucose 136 Medications Medication Current Medications IV Flush (NS 3 ml) 3 ml PER PROTOCOL IV ; Start 06/10/19 at 12:00 Ondansetron HCl (Zofran Inj) 4 mg Q6H PRN IV NAUSEA/VOMITING; Start 06/10/19 at 12:00 Acetaminophen (Tylenol Tab) 650 mg Q6H PRN PO .PAIN 1-3 OR TEMP Last administered on 06/13/19at 15:52; Admin Dose 650 MG; Start 06/10/19 at 12:00 Acetaminophen/ Hydrocodone Bitart ([place] (5/325)) 1 tab Q6H PRN PO .PAIN 4-6; Start 06/10/19 at 12:00 Morphine Sulfate (morphine) 2 mg Q4H PRN IV .PAIN 7-10 Last administered on 06/15/19at 16:57; Admin Dose 2 MG; Start 06/10/19 at 12:00 Amiodarone HCl (Cordarone) 100 mg DAILY GTB Last administered on 07/05/19 08:17; Admin Dose 100 MG; Start 06/11/19 at 09:00 Atorvastatin Calcium (Lipitor) 20 mg QHS GTB Last administered on 07/04/19 21:02; Admin Dose 20 MG; Start 06/10/19 at 21:00 Levetiracetam (Keppra Liquid) 500 mg BID GTB Last administered on 07/05/19 08:16; Admin Dose 500 MG; Start 06/10/19 at 21:00 Olanzapine (Zyprexa) 5 mg DAILY GTB Last administered on 07/05/19 08:16; Admin Dose 5 MG; Start 06/11/19 at 09:00 Polyethylene Glycol (Miralax) 17 gm DAILY GTB Last administered on 07/05/19 08:16; Admin Dose 17 GM; Start 06/11/19 at 09:00 Miscellaneous Information 1 ea NOTE XX ; Start 06/10/19 at 14:00 Glucose (Glutose) 15 gm Q15M PRN PO DECREASED GLUCOSE; Start 06/10/19 at 14:00 Glucose (Glutose) 22.5 gm Q15M PRN PO DECREASED GLUCOSE; Start 06/10/19 at 14:00 Dextrose (D50w Syringe) 25 ml Q15M PRN IV DECREASED GLUCOSE Last administered on 07/04/19at 05:11; Admin Dose 25 ML; Start 06/10/19 at 14:00 Dextrose (D50w Syringe) 50 ml Q15M PRN IV DECREASED GLUCOSE Last administered on 07/02/19 02:45; Admin Dose 50 ML; Start 06/10/19 at 14:00 Glucagon (Glucagen) 1 mg Q15M PRN IM DECREASED GLUCOSE; Start 06/10/19 at 14:00 Glucose (Glutose) 15 gm Q15M PRN BUCCAL DECREASED GLUCOSE; Start 06/10/19 at 14:00 IV Flush (NS 10 ml) 10 ml [id number] PRN IV Line Patency; Start 06/10/19 at 16:00 Fluvoxamine Maleate (Fluvoxamine Maleate) 25 mg DAILY GTB Last administered on 07/05/19 08:16; Admin Dose 25 MG; Start 06/11/19 at 09:00 Aspirin (Aspirin) 81 mg DAILY PEG Last administered on 07/05/19 08:16; Admin Dose 81 MG; Start 06/11/19 at 09:00 Heparin Sodium (Porcine) (Heparin (5000 Units/1ml)) 5,000 unit Q8 SC Last administered on 06/14/19 06:01; Admin Dose 5,000 UNIT; Start 06/11/19 at 14:00; Status Hold Ipratropium [place] (Atrovent 0.02% (Neb)) 0.5 mg Q4H RESP THERAPY PRN HHN SHORTNESS OF BREATH; Start 06/12/19 at 10:00 Levalbuterol (Xopenex Neb) 1.25 mg Q4H RESP THERAPY PRN HHN shortness of breath; Start 06/12/19 at 10:00 Fentanyl 100 ml @ 2.5 mls/hr TITRATE IV Last administered on 07/04/19 10:48; Admin Dose 7.5 MLS/HR; Start 06/12/19 at 10:00 Levalbuterol (Xopenex Hfa) 4 puff Q6H RESP THERAPY INH Last administered on 07/05/19 09:04; Admin Dose 4 PUFF; Start 06/12/19 at 20:00 Ipratropium [place] (Atrovent Hfa) 4 puff Q6H RESP THERAPY INH Last administered on 07/05/19 09:04; Admin Dose 4 PUFF; Start 06/12/19 at 20:00 Docusate Sodium (Colace Liquid Cup) 100 mg BID GTB Last administered on 07/05/19 08:16; Admin Dose 100 MG; Start 06/14/19 at 12:30 Insulin Aspart (Novolog Insulin Pen) NOVOLOG *MILD* ALGORI... Q4 SC Last administered on 07/05/19 08:27; Admin Dose 1 UNIT; Start 06/16/19 at 21:00 Propofol 100 ml @ 1.656 mls/ hr Q12H IV Last administered on 07/05/19 01:26; Admin Dose 9.936 MLS/HR; Start 06/18/19 at 10:00 Lactobacillus Acidophilus/ Rhamnosus (Culturelle) 1 cap TID PO Last administered on 07/05/19 08:16; Admin Dose 1 CAP; Start 06/18/19 at 21:00 Eye Lubricant (Artificial Tears Oph) 2 drop QID BOTH EYES Last administered on 07/05/19 09:17; Admin Dose 2 DROP; Start 06/23/19 at 09:30 Eye Lubricant (Akwa Oint) 1 applic Q6 BOTH EYES Last administered on 07/05/19 05:19; Admin Dose 1 APPLIC; Start 06/23/19 at 12:00 Potassium Chloride (Potassium Chloride Pwd/Soln) 20 meq PER PROTOCOL PRN GTB POTASSIUM REPLACEMENT PROTOCOL Last administered on 07/04/19 09:05; Admin Dose 20 MEQ; Start 06/21/19 at 09:30 Potassium Chloride (Potassium Chloride Pwd/Soln) 30 meq PER PROTOCOL PRN GTB POTASSIUM REPLACEMENT PROTOCOL Last administered on 06/27/19 21:06; Admin Dose 30 MEQ; Start 06/21/19 at 09:30 Potassium Chloride (Potassium Chloride Pwd/Soln) 40 meq PER PROTOCOL PRN GTB POTASSIUM REPLACEMENT PROTOCOL Last administered on 06/30/19 08:33; Admin Dose 40 MEQ; Start 06/21/19 at 09:30 Hydrocortisone (Solu-Cortef) 20 mg Q8 IV Last administered on 07/05/19 05:18; Admin Dose 20 MG; Start 06/27/19 at 14:00 Caspofungin 50 mg/ Sodium Chloride 250 ml @ 250 mls/hr Q24H IVPB Last administered on 8/9/19at 14:12; Admin Dose 250 MLS/HR; Start 07/03/19 at 15:30 Insulin Glargine (Lantus) 8 units DAILY@0800 SC Last administered on 07/05/19at 08:25; Admin Dose 8 UNITS; Start 07/05/19 at 08:00 GERMAN FELIX MD Jul 05, 2019 11:17
[2019-07-05] MEDS: POTASSIUM CHLORIDE 20 MEQ POWDER FOR ORAL SOLN GTB PRN (12:16)
[2019-07-05] MEDS: FENTAnyl (DRIP) 1000 mcg/100mL 100 ML IV SCH (12:28)
--- NOTE | 2019-07-05 14:11 | CONS ---
Assessment/Plan Assessment/Plan Hospital Course (Demo Recall) SUBJECTIVE: No acute changes patient is noncommunicative comfortable on vent tolerates tube feedings, no fevers overnight. WBC 15.8 neutrophils 82.3 BUN 87 creatinine 1.02 Repeat blood cultures negative. Urine culture repeated on June 30 grew Bridget glabrata Antimicrobials: Cancidas INDWELLINGS: Endotracheal tube, PEG, Dial, PICC line. PHYSICAL EXAMINATION: GENERAL: Chronically ill-appearing, elderly woman in no distress. HEENT: Head atraumatic, normocephalic. NECK: Supple. Trachea midline. CHEST: Rise symmetrical. Breath sounds diminished to bases. HEART: S1, S2. ABDOMEN: Distended. Bowel tones are hypoactive. EXTREMITIES: Without cyanosis. SKIN: Patient has severe anasarca. ASSESSMENT: 1. Leukocytosis, possibly steroid-induced 2. Acute respiratory failure 3. Healthcare associated pneumonia 4. C glabrata UTI 5. Dysphagia 6. Atrial fibrillation and non-ST elevation ID 9. Acute kidney insufficiency 10. Ascites 11. DNR Plan: Clinically unchanged, continue present care, pending family decision regarding goals of care Consultation Date/Type/Reason Admit Date/Time Jun 10, 2019 at 12:38 Initial Consult Date 06/11/19 Type of Consult id Requesting Provider: MALINI GOMEZ Date/Time of Note DATE: 07/05/19 TIME: 14:10 Exam/Review of Systems Exam Vitals Vital Signs Date Temp Pulse Resp B/P (MAP) Pulse Ox O2 O2 Flow FiO2 Time Delivery Rate 07/05/19 97.5 100 25 147/92 94 Mechanical 12:00 (110) Ventilator 07/05/19 80 08:00 Intake and Output 07/04/19 07/04/19 07/05/19 1515:00 23:00 07:00 IntakeIntake Total 892.5 ml 549.5 ml 779.272 ml OutputOutput Total 400 ml 385 ml 425 ml BalanceBalance 492.5 ml 164.5 ml 354.272 ml Results Result Diagram: 07/05/19 0445 07/05/19 0445 Results 24hrs Laboratory Tests Test 07/04/19 14:14 07/04/19 17:17 07/04/19 21:02 07/05/19 00:40 Bedside Glucose 119 175 114 124 Test 07/05/19 04:45 07/05/19 05:20 07/05/19 08:24 07/05/19 12:22 White Blood Count 15.8 H Red Blood Count 2.85 L Hemoglobin 8.3 L Hematocrit 28.4 L Mean Corpuscular 99.6 Volume Mean Corpuscular 29.1 Hemoglobin Mean Corpuscular 29.2 L Hemoglobin Concent Red Cell 14.4 Distribution Width Platelet Count 121 L Mean Platelet Volume 11.0 H Immature 0.800 H Granulocytes % Neutrophils % 82.3 H Lymphocytes % 4.8 L Monocytes % 5.2 Eosinophils % 6.6 Basophils % 0.3 Nucleated Red Blood 0.0 Cells % Immature 0.120 H Granulocytes # Neutrophils # 13.0 H Lymphocytes # 0.8 Monocytes # 0.8 Eosinophils # 1.1 H Basophils # 0.0 Nucleated Red Blood 0.0 Cells # Sodium Level 146 H Potassium Level 3.9 Chloride Level 108 Carbon Dioxide Level 36 H Anion Gap 2 L Blood Urea Nitrogen 87 H Creatinine 1.02 H Est Glomerular Filtrat Rate mL/min Glucose Level 137 Calcium Level 8.0 L Bedside Glucose 136 173 183 Medications Medication Current Medications IV Flush (NS 3 ml) 3 ml PER PROTOCOL IV ; Start 06/10/19 at 12:00 Ondansetron HCl (Zofran Inj) 4 mg Q6H PRN IV NAUSEA/VOMITING; Start 06/10/19 at 12:00 Acetaminophen (Tylenol Tab) 650 mg Q6H PRN PO .PAIN 1-3 OR TEMP Last administered on 06/13/19at 15:52; Admin Dose 650 MG; Start 06/10/19 at 12:00 Acetaminophen/ Hydrocodone Bitart ([place] (5/325)) 1 tab Q6H PRN PO .PAIN 4-6; Start 06/10/19 at 12:00 Morphine Sulfate (morphine) 2 mg Q4H PRN IV .PAIN 7-10 Last administered on 06/15/19at 16:57; Admin Dose 2 MG; Start 06/10/19 at 12:00 Amiodarone HCl (Cordarone) 100 mg DAILY GTB Last administered on 07/05/19at 08:17; Admin Dose 100 MG; Start 06/11/19 at 09:00 Atorvastatin Calcium (Lipitor) 20 mg QHS GTB Last administered on 07/04/19at 21:02; Admin Dose 20 MG; Start 06/10/19 at 21:00 Levetiracetam (Keppra Liquid) 500 mg BID GTB Last administered on 07/05/19 08:16; Admin Dose 500 MG; Start 06/10/19 at 21:00 Olanzapine (Zyprexa) 5 mg DAILY GTB Last administered on 07/05/19 08:16; Admin Dose 5 MG; Start 06/11/19 at 09:00 Polyethylene Glycol (Miralax) 17 gm DAILY GTB Last administered on 07/05/19 08:16; Admin Dose 17 GM; Start 06/11/19 at 09:00 Miscellaneous Information 1 ea NOTE XX ; Start 06/10/19 at 14:00 Glucose (Glutose) 15 gm Q15M PRN PO DECREASED GLUCOSE; Start 06/10/19 at 14:00 Glucose (Glutose) 22.5 gm Q15M PRN PO DECREASED GLUCOSE; Start 06/10/19 at 14:00 Dextrose (D50w Syringe) 25 ml Q15M PRN IV DECREASED GLUCOSE Last administered on 07/04/19at 05:11; Admin Dose 25 ML; Start 06/10/19 at 14:00 Dextrose (D50w Syringe) 50 ml Q15M PRN IV DECREASED GLUCOSE Last administered on 07/02/19at 02:45; Admin Dose 50 ML; Start 06/10/19 at 14:00 Glucagon (Glucagen) 1 mg Q15M PRN IM DECREASED GLUCOSE; Start 06/10/19 at 14:00 Glucose (Glutose) 15 gm Q15M PRN BUCCAL DECREASED GLUCOSE; Start 06/10/19 at 14:00 IV Flush (NS 10 ml) 10 ml [id number] PRN IV Line Patency; Start 06/10/19 at 16:00 Fluvoxamine Maleate (Fluvoxamine Maleate) 25 mg DAILY GTB Last administered on 07/05/19 08:16; Admin Dose 25 MG; Start 06/11/19 at 09:00 Aspirin (Aspirin) 81 mg DAILY PEG Last administered on 07/05/19 08:16; Admin Dose 81 MG; Start 06/11/19 at 09:00 Heparin Sodium (Porcine) (Heparin (5000 Units/1ml)) 5,000 unit Q8 SC Last administered on 06/14/19at 06:01; Admin Dose 5,000 UNIT; Start 06/11/19 at 14:00; Status Hold Ipratropium [place] (Atrovent 0.02% (Neb)) 0.5 mg Q4H RESP THERAPY PRN HHN SHORTNESS OF BREATH; Start 06/12/19 at 10:00 Levalbuterol (Xopenex Neb) 1.25 mg Q4H RESP THERAPY PRN HHN shortness of breath; Start 06/12/19 at 10:00 Fentanyl 100 ml @ 2.5 mls/hr TITRATE IV Last administered on 07/05/19 12:28; Admin Dose 7.5 MLS/HR; Start 06/12/19 at 10:00 Levalbuterol (Xopenex Hfa) 4 puff Q6H RESP THERAPY INH Last administered on 07/05/19 09:04; Admin Dose 4 PUFF; Start 06/12/19 at 20:00 Ipratropium [place] (Atrovent Hfa) 4 puff Q6H RESP THERAPY INH Last administered on 07/05/19 09:04; Admin Dose 4 PUFF; Start 06/12/19 at 20:00 Docusate Sodium (Colace Liquid Cup) 100 mg BID GTB Last administered on 07/05/19 08:16; Admin Dose 100 MG; Start 06/14/19 at 12:30 Insulin Aspart (Novolog Insulin Pen) NOVOLOG *MILD* ALGORI... Q4 SC Last administered on 07/05/19 12:24; Admin Dose 2 UNIT; Start 06/16/19 at 21:00 Propofol 100 ml @ 1.656 mls/ hr Q12H IV Last administered on 07/05/19 12:27; Admin Dose 9.936 MLS/HR; Start 06/18/19 at 10:00 Lactobacillus Acidophilus/ Rhamnosus (Culturelle) 1 cap TID PO Last administered on 07/05/19 12:16; Admin Dose 1 CAP; Start 06/18/19 at 21:00 Eye Lubricant (Artificial Tears Oph) 2 drop QID BOTH EYES Last administered on 07/05/19 12:16; Admin Dose 2 DROP; Start 06/23/19 at 09:30 Eye Lubricant (Akwa Oint) 1 applic Q6 BOTH EYES Last administered on 07/05/19 11:33; Admin Dose 1 APPLIC; Start 06/23/19 at 12:00 Potassium Chloride (Potassium Chloride Pwd/Soln) 20 meq PER PROTOCOL PRN GTB POTASSIUM REPLACEMENT PROTOCOL Last administered on 07/05/19 12:16; Admin Dose 20 MEQ; Start 06/21/19 at 09:30 Potassium Chloride (Potassium Chloride Pwd/Soln) 30 meq PER PROTOCOL PRN GTB POTASSIUM REPLACEMENT PROTOCOL Last administered on 06/27/19 21:06; Admin Dose 30 MEQ; Start 06/21/19 at 09:30 Potassium Chloride (Potassium Chloride Pwd/Soln) 40 meq PER PROTOCOL PRN GTB POTASSIUM REPLACEMENT PROTOCOL Last administered on 06/30/19 08:33; Admin Dose 40 MEQ; Start 06/21/19 at 09:30 Hydrocortisone (Solu-Cortef) 20 mg Q8 IV Last administered on 07/05/19 05:18; Admin Dose 20 MG; Start 06/27/19 at 14:00 Caspofungin 50 mg/ Sodium Chloride 250 ml @ 250 mls/hr Q24H IVPB Last administered on 07/04/19 14:12; Admin Dose 250 MLS/HR; Start 07/03/19 at 15:30 Insulin Glargine (Lantus) 8 units DAILY@0800 SC Last administered on 07/05/19 08:25; Admin Dose 8 UNITS; Start 07/05/19 at 08:00 JACKIE BRUNNER NP Jul 05, 2019 14:11
[2019-07-05] MEDS: CASPOFUNGIN 50 MG in SOD CHLORIDE 0.9% 250 ML IVPB SCH (14:18)
--- NOTE | 2019-07-05 14:51 | CONS ---
Assessment/Plan Assessment/Plan Assessment/Plan (Daily) 1. acute Hypernatremia due to severe dehydration. Na 146 2. acute Hyperkalemia due to FLOYD - Resolved 3. acute kidney injury on CKD III due to ATN from sepsis and Prerenal azotemia 4 . Septic shock due to multifocal PNA and UTI 5. Acute hypoxic respiratory failure due to PNA and Septic shock - Failed BIPAP- Intubated on 06/12/19 , 6. H/O severe dementia 7. H/O HTN 8. H/O HL 9. SNF resident 10. acute on chronic encephalopathy 11 h/o Dysphagia S/p G tube placement 12. Hypocalcemia 13. UTI with Urine cx growing ESBL Klebsiella Plan: BUN/Cr trended down to 87/1.02, Na 146, Hco3= 36 UO 1160 ml/24 hrs Poor candidate for dialysis due to age, comorbidities, consider palliative care follow up and comfort care off all abx now, ID following Ventilator Management as per pulmonary -- not doing well, still requiring high PEEP DNR code status, palliative care consulted on the case Total critical care time spent 30 mins Patient seen in collaboration with Dr Tomas Foster. We will follow up. Consultation Date/Type/Reason Admit Date/Time Jun 10, 2019 at 12:38 Initial Consult Date 06/11/19 Type of Consult NEPHROLOGY Requesting Provider: MALINI GOMEZ Date/Time of Note DATE: 07/05/19 TIME: 14:43 24 HR Interval Summary Free Text/Dictation Remain intubated UO 1160 ml/24 hrs Plan for terminal extubation tomorrow- per staff this is patient's son decision no events overnight Subjective hx not possible: pt non-verbal Constitutional: requiring IVF, requiring O2 Exam/Review of Systems Exam Vitals Vital Signs Date Temp Pulse Resp B/P (MAP) Pulse Ox O2 O2 Flow FiO2 Time Delivery Rate 07/05/19 97.5 100 25 147/92 94 Mechanical 12:00 (110) Ventilator 07/05/19 80 08:00 Intake and Output 07/04/19 07/04/19 07/05/19 1515:00 23:00 07:00 IntakeIntake Total 892.5 ml 549.5 ml 779.272 ml OutputOutput Total 400 ml 385 ml 425 ml BalanceBalance 492.5 ml 164.5 ml 354.272 ml Constitutional: non-verbal, frail Psych: nl mood/affect Head: atraumatic Eyes: nl lids, nl sclera ENMT: nl external ears & nose Neck: other (ET tube intact) Respiratory: crackles/rales (at bases bilatrrally), diminished breath sounds Cardiovascular: other (s1s2) Gastrointestinal: soft Musculoskeletal: joint tenderness, muscle weakness, range of motion Extremities: edema Neurological: unresponsive Skin: other (no rash ) Results Result Diagram: 07/05/195 07/05/19444 Results 24hrs Laboratory Tests Test 07/04/19 17:17 07/04/19 21:02 07/05/19 00:40 07/05/19 04:45 Bedside Glucose 175 114 124 White Blood Count 15.8 H Red Blood Count 2.85 L Hemoglobin 8.3 L Hematocrit 28.4 L Mean Corpuscular 99.6 Volume Mean Corpuscular 29.1 Hemoglobin Mean Corpuscular 29.2 L Hemoglobin Concent Red Cell 14.4 Distribution Width Platelet Count 121 L Mean Platelet Volume 11.0 H Immature 0.800 H Granulocytes % Neutrophils % 82.3 H Lymphocytes % 4.8 L Monocytes % 5.2 Eosinophils % 6.6 Basophils % 0.3 Nucleated Red Blood 0.0 Cells % Immature 0.120 H Granulocytes # Neutrophils # 13.0 H Lymphocytes # 0.8 Monocytes # 0.8 Eosinophils # 1.1 H Basophils # 0.0 Nucleated Red Blood 0.0 Cells # Sodium Level 146 H Potassium Level 3.9 Chloride Level 108 Carbon Dioxide Level 36 H Anion Gap 2 L Blood Urea Nitrogen 87 H Creatinine 1.02 H Est Glomerular Filtrat Rate mL/min Glucose Level 137 Calcium Level 8.0 L Test 07/05/19 05:20 07/05/19 08:24 07/05/19 12:22 Bedside Glucose 136 173 183 Medications Medication Current Medications IV Flush (NS 3 ml) 3 ml PER PROTOCOL IV ; Start 06/10/19 at 12:00 Ondansetron HCl (Zofran Inj) 4 mg Q6H PRN IV NAUSEA/VOMITING; Start 06/10/19 at 12:00 Acetaminophen (Tylenol Tab) 650 mg Q6H PRN PO .PAIN 1-3 OR TEMP Last administered on 06/13/19at 15:52; Admin Dose 650 MG; Start 06/10/19 at 12:00 Acetaminophen/ Hydrocodone Bitart ([place] (5/325)) 1 tab Q6H PRN PO .PAIN 4-6; Start 06/10/19 at 12:00 Morphine Sulfate (morphine) 2 mg Q4H PRN IV .PAIN 7-10 Last administered on 06/15/19at 16:57; Admin Dose 2 MG; Start 06/10/19 at 12:00 Amiodarone HCl (Cordarone) 100 mg DAILY GTB Last administered on 07/05/19 08:17; Admin Dose 100 MG; Start 06/11/19 at 09:00 Atorvastatin Calcium (Lipitor) 20 mg QHS GTB Last administered on 07/04/19 21:02; Admin Dose 20 MG; Start 06/10/19 at 21:00 Levetiracetam (Keppra Liquid) 500 mg BID GTB Last administered on 07/05/19at 08:16; Admin Dose 500 MG; Start 06/10/19 at 21:00 Olanzapine (Zyprexa) 5 mg DAILY GTB Last administered on 07/05/19at 08:16; Admin Dose 5 MG; Start 06/11/19 at 09:00 Polyethylene Glycol (Miralax) 17 gm DAILY GTB Last administered on 07/05/19 08:16; Admin Dose 17 GM; Start 06/11/19 at 09:00 Miscellaneous Information 1 ea NOTE XX ; Start 06/10/19 at 14:00 Glucose (Glutose) 15 gm Q15M PRN PO DECREASED GLUCOSE; Start 06/10/19 at 14:00 Glucose (Glutose) 22.5 gm Q15M PRN PO DECREASED GLUCOSE; Start 06/10/19 at 14:00 Dextrose (D50w Syringe) 25 ml Q15M PRN IV DECREASED GLUCOSE Last administered on 07/04/19at 05:11; Admin Dose 25 ML; Start 06/10/19 at 14:00 Dextrose (D50w Syringe) 50 ml Q15M PRN IV DECREASED GLUCOSE Last administered on 07/02/19at 02:45; Admin Dose 50 ML; Start 06/10/19 at 14:00 Glucagon (Glucagen) 1 mg Q15M PRN IM DECREASED GLUCOSE; Start 06/10/19 at 14:00 Glucose (Glutose) 15 gm Q15M PRN BUCCAL DECREASED GLUCOSE; Start 06/10/19 at 14:00 IV Flush (NS 10 ml) 10 ml [id number] PRN IV Line Patency; Start 06/10/19 at 16:00 Fluvoxamine Maleate (Fluvoxamine Maleate) 25 mg DAILY GTB Last administered on 07/05/19 08:16; Admin Dose 25 MG; Start 06/11/19 at 09:00 Aspirin (Aspirin) 81 mg DAILY PEG Last administered on 07/05/19 08:16; Admin Dose 81 MG; Start 06/11/19 at 09:00 Heparin Sodium (Porcine) (Heparin (5000 Units/1ml)) 5,000 unit Q8 SC Last administered on 06/14/19 06:01; Admin Dose 5,000 UNIT; Start 06/11/19 at 14:00; Status Hold Ipratropium [place] (Atrovent 0.02% (Neb)) 0.5 mg Q4H RESP THERAPY PRN HHN SHORTNESS OF BREATH; Start 06/12/19 at 10:00 Levalbuterol (Xopenex Neb) 1.25 mg Q4H RESP THERAPY PRN HHN shortness of breath; Start 06/12/19 at 10:00 Fentanyl 100 ml @ 2.5 mls/hr TITRATE IV Last administered on 07/05/19 12:28; Admin Dose 7.5 MLS/HR; Start 06/12/19 at 10:00 Levalbuterol (Xopenex Hfa) 4 puff Q6H RESP THERAPY INH Last administered on 07/05/19 09:04; Admin Dose 4 PUFF; Start 06/12/19 at 20:00 Ipratropium [place] (Atrovent Hfa) 4 puff Q6H RESP THERAPY INH Last administered on 07/05/19 09:04; Admin Dose 4 PUFF; Start 06/12/19 at 20:00 Docusate Sodium (Colace Liquid Cup) 100 mg BID GTB Last administered on 9at 08:16; Admin Dose 100 MG; Start 06/14/19 at 12:30 Insulin Aspart (Novolog Insulin Pen) NOVOLOG *MILD* ALGORI... Q4 SC Last administered on 07/05/19 12:24; Admin Dose 2 UNIT; Start 06/16/19 at 21:00 Propofol 100 ml @ 1.656 mls/ hr Q12H IV Last administered on 07/05/19 12:27; Admin Dose 9.936 MLS/HR; Start 06/18/19 at 10:00 Lactobacillus Acidophilus/ Rhamnosus (Culturelle) 1 cap TID PO Last administered on 07/05/19 12:16; Admin Dose 1 CAP; Start 06/18/19 at 21:00 Eye Lubricant (Artificial Tears Oph) 2 drop QID BOTH EYES Last administered on 07/05/19 12:16; Admin Dose 2 DROP; Start 06/23/19 at 09:30 Eye Lubricant (Akwa Oint) 1 applic Q6 BOTH EYES Last administered on 07/05/19 11:33; Admin Dose 1 APPLIC; Start 06/23/19 at 12:00 Potassium Chloride (Potassium Chloride Pwd/Soln) 20 meq PER PROTOCOL PRN GTB POTASSIUM REPLACEMENT PROTOCOL Last administered on 07/05/19 12:16; Admin Dose 20 MEQ; Start 06/21/19 at 09:30 Potassium Chloride (Potassium Chloride Pwd/Soln) 30 meq PER PROTOCOL PRN GTB POTASSIUM REPLACEMENT PROTOCOL Last administered on 06/27/19 21:06; Admin Dose 30 MEQ; Start 06/21/19 at 09:30 Potassium Chloride (Potassium Chloride Pwd/Soln) 40 meq PER PROTOCOL PRN GTB POTASSIUM REPLACEMENT PROTOCOL Last administered on 06/30/19 08:33; Admin Dose 40 MEQ; Start 06/21/19 at 09:30 Hydrocortisone (Solu-Cortef) 20 mg Q8 IV Last administered on 07/05/19 14:17; Admin Dose 20 MG; Start 06/27/19 at 14:00 Caspofungin 50 mg/ Sodium Chloride 250 ml @ 250 mls/hr Q24H IVPB Last administered on 07/05/19 14:18; Admin Dose 250 MLS/HR; Start 07/03/19 at 15:30 Insulin Glargine (Lantus) 8 units DAILY@0800 SC Last administered on 07/05/19 08:25; Admin Dose 8 UNITS; Start 07/05/19 at 08:00 DEEPIKA SERNA Jul 05, 2019 14:51
--- NOTE | 2019-07-05 16:09 | PN ---
Date/Time of Note Date/Time of Note DATE: 07/05/19 TIME: 16:05 Assessment/Plan VTE Prophylaxis Risk score (from Nsg)>0 risk: 11 SCD applied (from Nsg): Yes Pharmacological prophylaxis: NA/contraindicated Pharm contraindication: anticoag not tolerated Lines/Catheters IV Catheter Type (from Nrsg): PICC Line Central line still needed: Yes Urinary Cath still in place: Yes Reason Cath still needed: terminal illness/intractable pain Assessment/Plan Assessment/Plan 1. Acute hypoxic respiratory failure, ARDS secondary to sepsis - Per son, will plan for terminal extubation and comfort measures tomorrow. If does not proceed, will take case to bioethics on Sunday - no changes overnight. still remains on mechanical ventilation at high O2 and PEEP - Pulm on board and appreciate recommendations 2. Multifocal pneumonia - Sputum cx noted with MRSA and Bridget - ID on board and appreciate recommendations. 3. Abdominal distension - KUB noted and US with small ascites - most likely secondary to anasarca. 4. Atrial fibrillation with RVR- resolved - back in sinus rhythm - Cardiology consultation appreciated 5. Non-ST elevated [place] - Cardiology consultation appreciated and will continue current medications - continue aspirin and statin 6. Thrombocytopenia- stable - no need for transfusions at this time 7. Anemia of chronic disease - stable - no fatou bleeding appreciated 8. Chronic dysphasia - Patient has PEG tube 9. Diabetes mellitus - decreased Lantus to 8 given persistent hypoglycemia 10. Chronic encephalopathy - CT of the brain initially showed alarming findings however there appears to b e a mixup with patient's name, patient's actual name is Trey Roberts, [id number]. Neurosurgeon was initially consulted for possible brain bleed and other findings however when comparing to the patient's actual chart in 2013, neurosurgeon reviewed the CT and MRI and found a similar findings with no acute emergent change. - Monitor closely, patient appears to be at baseline 11. Dyslipidemia - Continue home meds 12. Mood disorder - Continue home meds 13. Chronic kidney disease - nephrology consultation appreciated and renal function returning to baseline 14. Failure to thrive - now DNR per families request 15. Anasarca - diuretics held given elevated creatinine 16. Disposition - Per son, will plan for terminal extubation and comfort measures on tomorrow Result Diagram: 07/05/19 0445 07/05/195 Results 24hrs Laboratory Tests Test 07/04/19 17:17 07/04/19 21:02 07/05/19 00:40 07/05/19 04:45 Bedside Glucose 175 114 124 White Blood Count 15.8 H Red Blood Count 2.85 L Hemoglobin 8.3 L Hematocrit 28.4 L Mean Corpuscular 99.6 Volume Mean Corpuscular 29.1 Hemoglobin Mean Corpuscular 29.2 L Hemoglobin Concent Red Cell 14.4 Distribution Width Platelet Count 121 L Mean Platelet Volume 11.0 H Immature 0.800 H Granulocytes % Neutrophils % 82.3 H Lymphocytes % 4.8 L Monocytes % 5.2 Eosinophils % 6.6 Basophils % 0.3 Nucleated Red Blood 0.0 Cells % Immature 0.120 H Granulocytes # Neutrophils # 13.0 H Lymphocytes # 0.8 Monocytes # 0.8 Eosinophils # 1.1 H Basophils # 0.0 Nucleated Red Blood 0.0 Cells # Sodium Level 146 H Potassium Level 3.9 Chloride Level 108 Carbon Dioxide Level 36 H Anion Gap 2 L Blood Urea Nitrogen 87 H Creatinine 1.02 H Est Glomerular Filtrat Rate mL/min Glucose Level 137 Calcium Level 8.0 L Test 07/05/19 05:20 07/05/19 08:24 07/05/19 12:22 Bedside Glucose 136 173 183 Subjective 24 Hr Interval Summary Free Text/Dictation Patient remains intubated and sedated. Only lasted 20 mins off sedation this am. No acute overnight changes. Exam/Review of Systems Exam Vitals Vital Signs Date Temp Pulse Resp B/P (MAP) Pulse Ox O2 O2 Flow FiO2 Time Delivery Rate 07/05/19 97.5 100 25 147/92 94 Mechanical 12:00 (110) Ventilator 07/05/19 80 08:00 Intake and Output 07/04/19 07/04/19 07/05/19 1515:00 23:00 07:00 IntakeIntake Total 892.5 ml 549.5 ml 779.272 ml OutputOutput Total 400 ml 385 ml 425 ml BalanceBalance 492.5 ml 164.5 ml 354.272 ml Exam General: remains intubated, sedated. ulcerations developing on lip Neck: Supple, edematous Respiratory: Coarse to auscultation bilaterally. no wheezing Cardiovascular: S1, S2, regular rate and rhythm, no obvious murmurs Gastrointestinal: soft, protuberant, non-tender to palpation, bowel sounds heard. PEG in place Neurological: Moves all extremities spontaneously to noxious stimuli Skin: No new skin lesions Ext: gross anasarca UE and LE b/l Results Results 24hrs Laboratory Tests Test 07/04/19 17:17 07/04/19 21:02 07/05/19 00:40 07/05/19 04:45 Bedside Glucose 175 114 124 White Blood Count 15.8 H Red Blood Count 2.85 L Hemoglobin 8.3 L Hematocrit 28.4 L Mean Corpuscular 99.6 Volume Mean Corpuscular 29.1 Hemoglobin Mean Corpuscular 29.2 L Hemoglobin Concent Red Cell 14.4 Distribution Width Platelet Count 121 L Mean Platelet Volume 11.0 H Immature 0.800 H Granulocytes % Neutrophils % 82.3 H Lymphocytes % 4.8 L Monocytes % 5.2 Eosinophils % 6.6 Basophils % 0.3 Nucleated Red Blood 0.0 Cells % Immature 0.120 H Granulocytes # Neutrophils # 13.0 H Lymphocytes # 0.8 Monocytes # 0.8 Eosinophils # 1.1 H Basophils # 0.0 Nucleated Red Blood 0.0 Cells # Sodium Level 146 H Potassium Level 3.9 Chloride Level 108 Carbon Dioxide Level 36 H Anion Gap 2 L Blood Urea Nitrogen 87 H Creatinine 1.02 H Est Glomerular Filtrat Rate mL/min Glucose Level 137 Calcium Level 8.0 L Test 07/05/19 05:20 07/05/19 08:24 07/05/19 12:22 Bedside Glucose 136 173 183 Medications Medication Current Medications IV Flush (NS 3 ml) 3 ml PER PROTOCOL IV ; Start 06/10/19 at 12:00 Ondansetron HCl (Zofran Inj) 4 mg Q6H PRN IV NAUSEA/VOMITING; Start 06/10/19 at 12:00 Acetaminophen (Tylenol Tab) 650 mg Q6H PRN PO .PAIN 1-3 OR TEMP Last administered on 06/13/19at 15:52; Admin Dose 650 MG; Start 06/10/19 at 12:00 Acetaminophen/ Hydrocodone Bitart ([place] (5/325)) 1 tab Q6H PRN PO .PAIN 4-6; Start 06/10/19 at 12:00 Morphine Sulfate (morphine) 2 mg Q4H PRN IV .PAIN 7-10 Last administered on 06/15/19at 16:57; Admin Dose 2 MG; Start 06/10/19 at 12:00 Amiodarone HCl (Cordarone) 100 mg DAILY GTB Last administered on 07/05/19 08:17; Admin Dose 100 MG; Start 06/11/19 at 09:00 Atorvastatin Calcium (Lipitor) 20 mg QHS GTB Last administered on 07/04/19at 21:02; Admin Dose 20 MG; Start 06/10/19 at 21:00 Levetiracetam (Keppra Liquid) 500 mg BID GTB Last administered on 07/05/19at 08:16; Admin Dose 500 MG; Start 06/10/19 at 21:00 Olanzapine (Zyprexa) 5 mg DAILY GTB Last administered on 07/05/19 08:16; Admin Dose 5 MG; Start 06/11/19 at 09:00 Polyethylene Glycol (Miralax) 17 gm DAILY GTB Last administered on 07/05/19at 08:16; Admin Dose 17 GM; Start 06/11/19 at 09:00 Miscellaneous Information 1 ea NOTE XX ; Start 06/10/19 at 14:00 Glucose (Glutose) 15 gm Q15M PRN PO DECREASED GLUCOSE; Start 06/10/19 at 14:00 Glucose (Glutose) 22.5 gm Q15M PRN PO DECREASED GLUCOSE; Start 06/10/19 at 14:00 Dextrose (D50w Syringe) 25 ml Q15M PRN IV DECREASED GLUCOSE Last administered on 07/04/19at 05:11; Admin Dose 25 ML; Start 06/10/19 at 14:00 Dextrose (D50w Syringe) 50 ml Q15M PRN IV DECREASED GLUCOSE Last administered on 07/02/19at 02:45; Admin Dose 50 ML; Start 06/10/19 at 14:00 Glucagon (Glucagen) 1 mg Q15M PRN IM DECREASED GLUCOSE; Start 06/10/19 at 14:00 Glucose (Glutose) 15 gm Q15M PRN BUCCAL DECREASED GLUCOSE; Start 06/10/19 at 14:00 IV Flush (NS 10 ml) 10 ml [id number] PRN IV Line Patency; Start 06/10/19 at 16:00 Fluvoxamine Maleate (Fluvoxamine Maleate) 25 mg DAILY GTB Last administered on 8/10/19at 08:16; Admin Dose 25 MG; Start 06/11/19 at 09:00 Aspirin (Aspirin) 81 mg DAILY PEG Last administered on 07/05/19 08:16; Admin Dose 81 MG; Start 06/11/19 at 09:00 Heparin Sodium (Porcine) (Heparin (5000 Units/1ml)) 5,000 unit Q8 SC Last administered on 06/14/19at 06:01; Admin Dose 5,000 UNIT; Start 06/11/19 at 14:00; Status Hold Ipratropium [place] (Atrovent 0.02% (Neb)) 0.5 mg Q4H RESP THERAPY PRN HHN SHORTNESS OF BREATH; Start 06/12/19 at 10:00 Levalbuterol (Xopenex Neb) 1.25 mg Q4H RESP THERAPY PRN HHN shortness of breath; Start 06/12/19 at 10:00 Fentanyl 100 ml @ 2.5 mls/hr TITRATE IV Last administered on 07/05/19 12:28; Admin Dose 7.5 MLS/HR; Start 06/12/19 at 10:00 Levalbuterol (Xopenex Hfa) 4 puff Q6H RESP THERAPY INH Last administered on 07/05/19 15:30; Admin Dose 4 PUFF; Start 06/12/19 at 20:00 Ipratropium [place] (Atrovent Hfa) 4 puff Q6H RESP THERAPY INH Last administered on 07/05/19 15:29; Admin Dose 4 PUFF; Start 06/12/19 at 20:00 Docusate Sodium (Colace Liquid Cup) 100 mg BID GTB Last administered on 07/05/19 08:16; Admin Dose 100 MG; Start 06/14/19 at 12:30 Insulin Aspart (Novolog Insulin Pen) NOVOLOG *MILD* ALGORI... Q4 SC Last admin istered on 07/05/19 12:24; Admin Dose 2 UNIT; Start 06/16/19 at 21:00 Propofol 100 ml @ 1.656 mls/ hr Q12H IV Last administered on 07/05/19 12:27; Admin Dose 9.936 MLS/HR; Start 06/18/19 at 10:00 Lactobacillus Acidophilus/ Rhamnosus (Culturelle) 1 cap TID PO Last administered on 07/05/19 12:16; Admin Dose 1 CAP; Start 06/18/19 at 21:00 Eye Lubricant (Artificial Tears Oph) 2 drop QID BOTH EYES Last administered on 07/05/19 12:16; Admin Dose 2 DROP; Start 06/23/19 at 09:30 Eye Lubricant ([place] Oint) 1 applic Q6 BOTH EYES Last administered on 07/05/19 11:33; Admin Dose 1 APPLIC; Start 06/23/19 at 12:00 Potassium Chloride (Potassium Chloride Pwd/Soln) 20 meq PER PROTOCOL PRN GTB POTASSIUM REPLACEMENT PROTOCOL Last administered on 07/05/19 12:16; Admin Dose 20 MEQ; Start 06/21/19 at 09:30 Potassium Chloride (Potassium Chloride Pwd/Soln) 30 meq PER PROTOCOL PRN GTB POTASSIUM REPLACEMENT PROTOCOL Last administered on 06/27/19 21:06; Admin Dose 30 MEQ; Start 06/21/19 at 09:30 Potassium Chloride (Potassium Chloride Pwd/Soln) 40 meq PER PROTOCOL PRN GTB POTASSIUM REPLACEMENT PROTOCOL Last administered on 06/30/19 08:33; Admin Dose 40 MEQ; Start 06/21/19 at 09:30 Hydrocortisone (Solu-Cortef) 20 mg Q8 IV Last administered on 07/05/19 14:17; Admin Dose 20 MG; Start 06/27/19 at 14:00 Caspofungin 50 mg/ Sodium Chloride 250 ml @ 250 mls/hr Q24H IVPB Last administered on 07/05/19 14:18; Admin Dose 250 MLS/HR; Start 07/03/19 at 15:30 Insulin Glargine (Lantus) 8 units DAILY@0800 SC Last administered on 07/05/19 08:25; Admin Dose 8 UNITS; Start 07/05/19 at 08:00 SHENG DONNELLY MD Jul 05, 2019 16:08
[2019-07-05] MEDS: ATORVASTATIN 20 MG TAB GTB SCH (20:45)
[2019-07-06] VITALS (52 sets, daily range): BP systolic 124–153; BP diastolic 61–87; PULSE 0–98; RESP 0–44
[2019-07-06] MEDS: OCULAR LUBRICANT 3.5 GM OPH OINT BOTH EYES SCH ×3 (00:34→13:08)
[2019-07-06] MEDS: INSULIN ASPART [NOVOLOG] 3 ML PEN SC SCH ×4 (00:42→13:24)
[2019-07-06] MEDS: LEVALBUTEROL (HFA) 15 GM INHALER INH SCH ×3 (02:01→14:53)
[2019-07-06] MEDS: IPRATROPIUM (HFA) 12.9 GM INHALER INH SCH ×3 (02:01→14:53)
[2019-07-06] MEDS: FENTAnyl (DRIP) 1000 mcg/100mL 100 ML IV SCH ×2 (02:11→16:04)
[2019-07-06] MEDS ORDERED: INSULIN ASPART [NOVOLOG] 3 ML PEN SC ONE (05:00)
[2019-07-06] MEDS: HYDROCORTISONE 100 MG INJ IV SCH ×2 (05:09→13:08)
[2019-07-06] MEDS: PROPOFOL 100 ML IV SCH ×2 (05:45→15:59)
[2019-07-06] MEDS: DOCUSATE SODIUM 10 MG/ML (10ML CUP) GTB SCH (08:20)
[2019-07-06] MEDS: LEVETIRACETAM (100 MG/ML) 5ML CUP GTB SCH (08:20)
[2019-07-06] MEDS: LACTOBACILLUS RHAMNOSUS CAP PO SCH ×2 (08:21→13:08)
[2019-07-06] MEDS: AMIODARONE 200 MG TAB GTB SCH (08:21)
[2019-07-06] MEDS: FLUVOXAMINE MALEATE 25 MG TABLET GTB SCH (08:21)
[2019-07-06] MEDS: INSULIN GLARGINE [LANTus] (100 UNITS/ML) SYG SC SCH (08:21)
[2019-07-06] MEDS: OLANZAPINE 5 MG TAB GTB SCH (08:22)
[2019-07-06] MEDS: ASPIRIN 81 MG TAB PEG SCH (08:22)
[2019-07-06] MEDS: POLYETHYLENE GLYCOL 17 GM PACKET GTB SCH (08:22)
--- NOTE | 2019-07-06 08:22 | PN ---
Date/Time of Note Date/Time of Note DATE: 07/06/19 TIME: 08:16 Assessment/Plan VTE Prophylaxis Risk score (from Nsg)>0 risk: 11 SCD applied (from Nsg): Yes Pharmacological prophylaxis: heparin Lines/Catheters IV Catheter Type (from Nrsg): PICC Line Central line still needed: Yes Urinary Cath still in place: Yes Reason Cath still needed: terminal illness/intractable pain Assessment/Plan Assessment/Plan 1. Acute hypoxic respiratory failure, ARDS secondary to sepsis - no change in condition and remains on full vent settings - Per son, will plan for terminal extubation today - Pulm on board and appreciate recommendations 2. Multifocal pneumonia - Sputum cx noted with MRSA and Bridget - ID on board and appreciate recommendations. 3. Abdominal distension - KUB noted and US with small ascites - most likely secondary to anasarca. 4. Atrial fibrillation with RVR- resolved - back in sinus rhythm - Cardiology consultation appreciated 5. Non-ST elevated [place] - Cardiology consultation appreciated and will continue current medications - continue aspirin and statin 6. Thrombocytopenia- stable - no need for transfusions at this time 7. Anemia of chronic disease - stable - no fatou bleeding appreciated 8. Chronic dysphasia - Patient has PEG tube 9. Diabetes mellitus - ISS and accuchecks - continue Lantus 10. Chronic encephalopathy - CT of the brain initially showed alarming findings however there appears to be a mixup with patient's name, patient's actual name is Trey Robertsbright [id number]. Neurosurgeon was initially consulted for possible brain bleed and other findings however when comparing to the patient's actual chart in 2013, neurosurgeon reviewed the CT and MRI and found a similar findings with no acute emergent change. - Monitor closely, patient appears to be at baseline 11. Dyslipidemia - Continue home meds 12. Mood disorder - Continue home meds 13. Chronic kidney disease - nephrology consultation appreciated and renal function back to baseline 14. Failure to thrive - now DNR per families request 15. Anasarca - persistent - no improvement after diuretics 16. Disposition - Plans for terminal extubation today Result Diagram: 07/06/19 0400 07/06/19 0400 Results 24hrs Laboratory Tests Test 07/05/19 08:24 07/05/19 12:22 07/05/19 16:43 07/05/19 20:37 Bedside Glucose 173 183 166 209 Test 07/06/19 00:39 07/06/19 04:00 07/06/19 05:10 Bedside Glucose 203 211 White Blood Count 12.7 H Red Blood Count 2.40 L Hemoglobin 7.2 L Hematocrit 24.1 L Mean Corpuscular 100.4 Volume Mean Corpuscular 30.0 Hemoglobin Mean Corpuscular 29.9 L Hemoglobin Concent Red Cell 13.9 Distribution Width Platelet Count 115 L Mean Platelet Volume 11.2 H Immature 0.800 H Granulocytes % Neutrophils % 94.1 H Lymphocytes % 2.8 L Monocytes % 2.0 Eosinophils % 0.1 Basophils % 0.2 Nucleated Red Blood 0.0 Cells % Immature 0.100 H Granulocytes # Neutrophils # 12.0 H Lymphocytes # 0.4 L Monocytes # 0.3 Eosinophils # 0.0 Basophils # 0.0 Nucleated Red Blood 0.0 Cells # Sodium Level 145 H Potassium Level 4.3 Chloride Level 108 Carbon Dioxide Level 36 H Anion Gap 1 L Blood Urea Nitrogen 81 H Creatinine 0.91 Est Glomerular Filtrat Rate mL/min Glucose Level 172 Calcium Level 7.9 L Subjective 24 Hr Interval Summary Free Text/Dictation Patient remains intubated and sedated. No acute changes in condition. Exam/Review of Systems Exam Vitals Vital Signs Date Temp Pulse Resp B/P (MAP) Pulse Ox O2 O2 Flow FiO2 Time Delivery Rate 07/06/19 98.5 93 25 146/84 100 Mechanical 08:00 (104) Ventilator 07/06/19 100 07:44 Intake and Output 07/05/19 07/05/19 07/06/19 1515:00 23:00 07:00 IntakeIntake Total 858.052 ml 1109.488 ml 794.552 ml OutputOutput Total 505 ml 400 ml 320 ml BalanceBalance 353.052 ml 709.488 ml 474.552 ml Exam General: remains intubated, sedated. ulcerations on lip Neck: Supple, edematous Respiratory: Coarse to auscultation bilaterally. no wheezing Cardiovascular: S1, S2, regular rate and rhythm, no obvious murmurs Gastrointestinal: soft, protuberant, non-tender to palpation, bowel sounds heard. PEG in place Neurological: Moves all extremities spontaneously to noxious stimuli Skin: No new skin lesions Ext: gross anasarca UE and LE b/l Results Results 24hrs Laboratory Tests Test 07/05/19 08:24 07/05/19 12:22 07/05/19 16:43 07/05/19 20:37 Bedside Glucose 173 183 166 209 Test 07/06/19 00:39 07/06/19 04:00 07/06/19 05:10 Bedside Glucose 203 211 White Blood Count 12.7 H Red Blood Count 2.40 L Hemoglobin 7.2 L Hematocrit 24.1 L Mean Corpuscular 100.4 Volume Mean Corpuscular 30.0 Hemoglobin Mean Corpuscular 29.9 L Hemoglobin Concent Red Cell 13.9 Distribution Width Platelet Count 115 L Mean Platelet Volume 11.2 H Immature 0.800 H Granulocytes % Neutrophils % 94.1 H Lymphocytes % 2.8 L Monocytes % 2.0 Eosinophils % 0.1 Basophils % 0.2 Nucleated Red Blood 0.0 Cells % Immature 0.100 H Granulocytes # Neutrophils # 12.0 H Lymphocytes # 0.4 L Monocytes # 0.3 Eosinophils # 0.0 Basophils # 0.0 Nucleated Red Blood 0.0 Cells # Sodium Level 145 H Potassium Level 4.3 Chloride Level 108 Carbon Dioxide Level 36 H Anion Gap 1 L Blood Urea Nitrogen 81 H Creatinine 0.91 Est Glomerular Filtrat Rate mL/min Glucose Level 172 Calcium Level 7.9 L Medications Medication Current Medications IV Flush (NS 3 ml) 3 ml PER PROTOCOL IV ; Start 06/10/19 at 12:00 Ondansetron HCl (Zofran Inj) 4 mg Q6H PRN IV NAUSEA/VOMITING; Start 06/10/19 at 12:00 Acetaminophen (Tylenol Tab) 650 mg Q6H PRN PO .PAIN 1-3 OR TEMP Last administered on 06/13/19at 15:52; Admin Dose 650 MG; Start 06/10/19 at 12:00 Acetaminophen/ Hydrocodone Bitart ([place] (5/325)) 1 tab Q6H PRN PO .PAIN 4-6; Start 06/10/19 at 12:00 Morphine Sulfate (morphine) 2 mg Q4H PRN IV .PAIN 7-10 Last administered on 06/15/19at 16:57; Admin Dose 2 MG; Start 06/10/19 at 12:00 Amiodarone HCl (Cordarone) 100 mg DAILY GTB Last administered on 07/05/19at 08:17; Admin Dose 100 MG; Start 06/11/19 at 09:00 Atorvastatin Calcium (Lipitor) 20 mg QHS GTB Last administered on 07/05/19 20:45; Admin Dose 20 MG; Start 06/10/19 at 21:00 Levetiracetam (Keppra Liquid) 500 mg BID GTB Last administered on 07/05/19 20:45; Admin Dose 500 MG; Start 06/10/19 at 21:00 Olanzapine (Zyprexa) 5 mg DAILY GTB Last administered on 07/05/19 08:16; Admin Dose 5 MG; Start 06/11/19 at 09:00 Polyethylene Glycol (Miralax) 17 gm DAILY GTB Last administered on 07/05/19 08:16; Admin Dose 17 GM; Start 06/11/19 at 09:00 Miscellaneous Information 1 ea NOTE XX ; Start 06/10/19 at 14:00 Glucose (Glutose) 15 gm Q15M PRN PO DECREASED GLUCOSE; Start 06/10/19 at 14:00 Glucose (Glutose) 22.5 gm Q15M PRN PO DECREASED GLUCOSE; Start 06/10/19 at 14:00 Dextrose (D50w Syringe) 25 ml Q15M PRN IV DECREASED GLUCOSE Last administered o n 07/04/19at 05:11; Admin Dose 25 ML; Start 06/10/19 at 14:00 Dextrose (D50w Syringe) 50 ml Q15M PRN IV DECREASED GLUCOSE Last administered on 07/02/19at 02:45; Admin Dose 50 ML; Start 06/10/19 at 14:00 Glucagon (Glucagen) 1 mg Q15M PRN IM DECREASED GLUCOSE; Start 06/10/19 at 14:00 Glucose (Glutose) 15 gm Q15M PRN BUCCAL DECREASED GLUCOSE; Start 06/10/19 at 14:00 IV Flush (NS 10 ml) 10 ml [id number] PRN IV Line Patency; Start 06/10/19 at 16:00 Fluvoxamine Maleate (Fluvoxamine Maleate) 25 mg DAILY GTB Last administered on 07/05/19 08:16; Admin Dose 25 MG; Start 06/11/19 at 09:00 Aspirin (Aspirin) 81 mg DAILY PEG Last administered on 07/05/19 08:16; Admin Dose 81 MG; Start 06/11/19 at 09:00 Heparin Sodium (Porcine) (Heparin (5000 Units/1ml)) 5,000 unit Q8 SC Last administered on 06/14/19 06:01; Admin Dose 5,000 UNIT; Start 06/11/19 at 14:00; Status Hold Ipratropium [place] (Atrovent 0.02% (Neb)) 0.5 mg Q4H RESP THERAPY PRN HHN SHORTNESS OF BREATH; Start 06/12/19 at 10:00 Levalbuterol (Xopenex Neb) 1.25 mg Q4H RESP THERAPY PRN HHN shortness of breath; Start 06/12/19 at 10:00 Fentanyl 100 ml @ 2.5 mls/hr TITRATE IV Last administered on 07/06/19 02:11; Admin Dose 7.5 MLS/HR; Start 06/12/19 at 10:00 Levalbuterol (Xopenex Hfa) 4 puff Q6H RESP THERAPY INH Last administered on 07/06/19 07:41; Admin Dose 4 PUFF; Start 06/12/19 at 20:00 Ipratropium [place] (Atrovent Hfa) 4 puff Q6H RESP THERAPY INH Last administered on 07/06/19 07:41; Admin Dose 4 PUFF; Start 06/12/19 at 20:00 Docusate Sodium (Colace Liquid Cup) 100 mg BID GTB Last administered on 07/05/19 20:45; Admin Dose 100 MG; Start 06/14/19 at 12:30 Insulin Aspart (Novolog Insulin Pen) NOVOLOG *MILD* ALGORI... Q4 SC Last administered on 07/06/19 05:12; Admin Dose 2 UNIT; Start 06/16/19 at 21:00 Propofol 100 ml @ 1.656 mls/ hr Q12H IV Last administered on 07/06/19 05:45; Admin Dose 9.936 MLS/HR; Start 06/18/19 at 10:00 Lactobacillus Acidophilus/ Rhamnosus (Culturelle) 1 cap TID PO Last administere d on 07/05/19 12:16; Admin Dose 1 CAP; Start 06/18/19 at 21:00 Eye Lubricant (Artificial Tears Oph) 2 drop QID BOTH EYES Last administered on 07/05/19 20:45; Admin Dose 2 DROP; Start 06/23/19 at 09:30 Eye Lubricant ([place]wa Oint) 1 applic Q6 BOTH EYES Last administered on 07/06/19 05:10; Admin Dose 1 APPLIC; Start 06/23/19 at 12:00 Potassium Chloride (Potassium Chloride Pwd/Soln) 20 meq PER PROTOCOL PRN GTB POTASSIUM REPLACEMENT PROTOCOL Last administered on 07/05/19 12:16; Admin Dose 20 MEQ; Start 06/21/19 at 09:30 Potassium Chloride (Potassium Chloride Pwd/Soln) 30 meq PER PROTOCOL PRN GTB POTASSIUM REPLACEMENT PROTOCOL Last administered on 06/27/19 21:06; Admin Dose 30 MEQ; Start 06/21/19 at 09:30 Potassium Chloride (Potassium Chloride Pwd/Soln) 40 meq PER PROTOCOL PRN GTB POTASSIUM REPLACEMENT PROTOCOL Last administered on 06/30/19 08:33; Admin Dose 40 MEQ; Start 06/21/19 at 09:30 Hydrocortisone (Solu-Cortef) 20 mg Q8 IV Last administered on 07/06/19 05:09; Admin Dose 20 MG; Start 06/27/19 at 14:00 Caspofungin 50 mg/ Sodium Chloride 250 ml @ 250 mls/hr Q24H IVPB Last admini stered on 07/05/19 14:18; Admin Dose 250 MLS/HR; Start 07/03/19 at 15:30 Insulin Glargine (Lantus) 8 units DAILY@0800 SC Last administered on 07/05/19 08:25; Admin Dose 8 UNITS; Start 07/05/19 at 08:00 SHENG DONNELLY MD Jul 06, 2019 08:22
[2019-07-06] MEDS: ARTIFICIAL TEARS 15 ML OPH BOTH EYES SCH ×2 (08:23→13:08)
[2019-07-06] MEDS: BALSAM PERU/CASTOR OIL 60 GM TUBE TOP SCH (08:23)
--- NOTE | 2019-07-06 09:56 | CONS ---
Consult Date/Type/Reason Admit Date/Time Jun 10, 2019 at 12:38 Initial Consult Date 06/11/19 Type of Consult Pulmonary Requesting Provider: MALINI GOMEZ Date/Time of Note DATE: 07/06/19 TIME: 09:55 Subjective FiO2 increased to 100% PEEP of 10. Neurologically unchanged. Objective Vital Signs Date Temp Pulse Resp B/P (MAP) Pulse Ox O2 O2 Flow FiO2 Time Delivery Rate 07/06/19 94 26 145/85 100 Mechanical 09:00 (105) Ventilator 07/06/19 98.5 08:00 07/06/19 100 07:44 Intake and Output 07/05/19 07/05/19 07/06/19 1515:00 23:00 07:00 IntakeIntake Total 858.052 ml 1109.488 ml 794.552 ml OutputOutput Total 505 ml 400 ml 320 ml BalanceBalance 353.052 ml 709.488 ml 474.552 ml Exam GENERAL: The lady orally intubated, unresponsive off sedation VITAL SIGNS: per chart NECK: Supple. No JVD or lymphadenopathy. CARDIAC EXAM: S1, S2. No added sounds or murmurs. CHEST: Diminished air entry bilaterally ABDOMEN: Soft, nontender. No guarding or rebound. EXTREMITIES: No cyanosis, clubbing edema +2 NEUROLOGIC: Generalized weakness. Vent Setting Ventilator Support Mode: PS Fraction of Inspired Oxygen pe: 100 Positive End Expiratory Pressu: 10.0 Results/Medications Result Diagram: 07/06/19 0400 07/06/19 0400 Results 24 hrs Laboratory Tests Test 07/05/19 12:22 07/05/19 16:43 07/05/19 20:37 07/06/19 00:39 Bedside Glucose 183 166 209 203 Test 07/06/19 04:00 07/06/19 05:10 07/06/19 08:20 White Blood Count 12.7 H Red Blood Count 2.40 L Hemoglobin 7.2 L Hematocrit 24.1 L Mean Corpuscular 100.4 Volume Mean Corpuscular 30.0 Hemoglobin Mean Corpuscular 29.9 L Hemoglobin Concent Red Cell 13.9 Distribution Width Platelet Count 115 L Mean Platelet Volume 11.2 H Immature 0.800 H Granulocytes % Neutrophils % 94.1 H Lymphocytes % 2.8 L Monocytes % 2.0 Eosinophils % 0.1 Basophils % 0.2 Nucleated Red Blood 0.0 Cells % Immature 0.100 H Granulocytes # Neutrophils # 12.0 H Lymphocytes # 0.4 L Monocytes # 0.3 Eosinophils # 0.0 Basophils # 0.0 Nucleated Red Blood 0.0 Cells # Sodium Level 145 H Potassium Level 4.3 Chloride Level 108 Carbon Dioxide Level 36 H Anion Gap 1 L Blood Urea Nitrogen 81 H Creatinine 0.91 Est Glomerular Filtrat Rate mL/min Glucose Level 172 Calcium Level 7.9 L Bedside Glucose 211 218 Medications Current Medications IV Flush (NS 3 ml) 3 ml PER PROTOCOL IV ; Start 06/10/19 at 12:00 Ondansetron HCl (Zofran Inj) 4 mg Q6H PRN IV NAUSEA/VOMITING; Start 06/10/19 at 12:00 Acetaminophen (Tylenol Tab) 650 mg Q6H PRN PO .PAIN 1-3 OR TEMP Last administered on 06/13/19 15:52; Admin Dose 650 MG; Start 06/10/19 at 12:00 Acetaminophen/ Hydrocodone Bitart ([place] (5/325)) 1 tab Q6H PRN PO .PAIN 4-6; Start 06/10/19 at 12:00 Morphine Sulfate (morphine) 2 mg Q4H PRN IV .PAIN 7-10 Last administered on 06/15/19 16:57; Admin Dose 2 MG; Start 06/10/19 at 12:00 Amiodarone HCl (Cordarone) 100 mg DAILY GTB Last administered on 07/06/19 08:21; Admin Dose 100 MG; Start 06/11/19 at 09:00 Atorvastatin Calcium (Lipitor) 20 mg QHS GTB Last administered on 07/05/19 20:45; Admin Dose 20 MG; Start 06/10/19 at 21:00 Levetiracetam (Keppra Liquid) 500 mg BID GTB Last administered on 07/06/19 08:20; Admin Dose 500 MG; Start 06/10/19 at 21:00 Olanzapine (Zyprexa) 5 mg DAILY GTB Last administered on 07/06/19 08:22; Admin Dose 5 MG; Start 06/11/19 at 09:00 Polyethylene Glycol (Miralax) 17 gm DAILY GTB Last administered on 07/06/19 08:22; Admin Dose 17 GM; Start 06/11/19 at 09:00 Miscellaneous Information 1 ea NOTE XX ; Start 06/10/19 at 14:00 Glucose (Glutose) 15 gm Q15M PRN PO DECREASED GLUCOSE; Start 06/10/19 at 14:00 Glucose (Glutose) 22.5 gm Q15M PRN PO DECREASED GLUCOSE; Start 06/10/19 at 14:00 Dextrose (D50w Syringe) 25 ml Q15M PRN IV DECREASED GLUCOSE Last administered on 07/04/19at 05:11; Admin Dose 25 ML; Start 06/10/19 at 14:00 Dextrose (D50w Syringe) 50 ml Q15M PRN IV DECREASED GLUCOSE Last administered on 07/02/19at 02:45; Admin Dose 50 ML; Start 06/10/19 at 14:00 Glucagon (Glucagen) 1 mg Q15M PRN IM DECREASED GLUCOSE; Start 06/10/19 at 14:00 Glucose (Glutose) 15 gm Q15M PRN BUCCAL DECREASED GLUCOSE; Start 06/10/19 at 14:00 IV Flush (NS 10 ml) 10 ml [id number] PRN IV Line Patency; Start 06/10/19 at 16:00 Fluvoxamine Maleate (Fluvoxamine Maleate) 25 mg DAILY GTB Last administered on 07/06/19at 08:21; Admin Dose 25 MG; Start 06/11/19 at 09:00 Aspirin (Aspirin) 81 mg DAILY PEG Last administered on 07/06/19at 08:22; Admin Dose 81 MG; Start 06/11/19 at 09:00 Heparin Sodium (Porcine) (Heparin (5000 Units/1ml)) 5,000 unit Q8 SC Last administered on 06/14/19at 06:01; Admin Dose 5,000 UNIT; Start 06/11/19 at 14:00; Status Hold Ipratropium [place] (Atrovent 0.02% (Neb)) 0.5 mg Q4H RESP THERAPY PRN HHN SHORTNESS OF BREATH; Start 06/12/19 at 10:00 Levalbuterol (Xopenex Neb) 1.25 mg Q4H RESP THERAPY PRN HHN shortness of breath; Start 06/12/19 at 10:00 Fentanyl 100 ml @ 2.5 mls/hr TITRATE IV Last administered on 07/06/19at 02:11; Admin Dose 7.5 MLS/HR; Start 06/12/19 at 10:00 Levalbuterol (Xopenex Hfa) 4 puff Q6H RESP THERAPY INH Last administered on 07/06/19 07:41; Admin Dose 4 PUFF; Start 06/12/19 at 20:00 Ipratropium [place] (Atrovent Hfa) 4 puff Q6H RESP THERAPY INH Last administered on 07/06/19 07:41; Admin Dose 4 PUFF; Start 06/12/19 at 20:00 Docusate Sodium (Colace Liquid Cup) 100 mg BID GTB Last administered on 07/06/19 08:20; Admin Dose 100 MG; Start 06/14/19 at 12:30 Insulin Aspart (Novolog Insulin Pen) NOVOLOG *MILD* ALGORI... Q4 SC Last administered on 07/06/19 08:23; Admin Dose 3 UNIT; Start 06/16/19 at 21:00 Propofol 100 ml @ 1.656 mls/ hr Q12H IV Last administered on 07/06/19 05:45; Admin Dose 9.936 MLS/HR; Start 06/18/19 at 10:00 Lactobacillus Acidophilus/ Rhamnosus (Culturelle) 1 cap TID PO Last administered on 07/06/19 08:21; Admin Dose 1 CAP; Start 06/18/19 at 21:00 Eye Lubricant (Artificial Tears Oph) 2 drop QID BOTH EYES Last administered on 07/06/19 08:23; Admin Dose 2 DROP; Start 06/23/19 at 09:30 Eye Lubricant (Akwa Oint) 1 applic Q6 BOTH EYES Last administered on 07/06/19 05:10; Admin Dose 1 APPLIC; Start 06/23/19 at 12:00 Potassium Chloride (Potassium Chloride Pwd/Soln) 20 meq PER PROTOCOL PRN GTB POTASSIUM REPLACEMENT PROTOCOL Last administered on 07/05/19 12:16; Admin Dose 20 MEQ; Start 06/21/19 at 09:30 Potassium Chloride (Potassium Chloride Pwd/Soln) 30 meq PER PROTOCOL PRN GTB POTASSIUM REPLACEMENT PROTOCOL Last administered on 06/27/19 21:06; Admin Dose 30 MEQ; Start 06/21/19 at 09:30 Potassium Chloride (Potassium Chloride Pwd/Soln) 40 meq PER PROTOCOL PRN GTB POTASSIUM REPLACEMENT PROTOCOL Last administered on 06/30/19 08:33; Admin Dose 40 MEQ; Start 06/21/19 at 09:30 Hydrocortisone (Solu-Cortef) 20 mg Q8 IV Last administered on 07/06/19 05:09; Admin Dose 20 MG; Start 06/27/19 at 14:00 Caspofungin 50 mg/ Sodium Chloride 250 ml @ 250 mls/hr Q24H IVPB Last administered on 07/05/19at 14:18; Admin Dose 250 MLS/HR; Start 07/03/19 at 15:30 Insulin Glargine (Lantus) 8 units DAILY@0800 SC Last administered on 07/06/19at 08:21; Admin Dose 8 UNITS; Start 07/05/19 at 08:00 Assessment/Plan Hospital Course (Demo Recall) Assessment 1. Acute hypoxic respiratory failure with ARDS 2. Vegetative state 3. Persistent leukocytosis status post refractory septic shock 4. Status post thrombus cytopenia Plan 1. Continue mechanical ventilation 2. Continue tube feeding as tolerated 3. Family requesting several days prior to removal of mechanical ventilation hopefully this weekend. Care time 40 minutes Bioethics consultation scheduled for Sunday. LAVERNE HYDE MD, [facility] Jul 06, 2019 09:56
--- NOTE | 2019-07-06 12:19 | CONS ---
Assessment/Plan Assessment/Plan Assessment/Plan (Daily) 1. acute Hypernatremia due to severe dehydration. Na 145 2. acute Hyperkalemia due to FLOYD - Resolved 3. acute kidney injury on CKD III due to ATN from sepsis and Prerenal azotemia 4 . Septic shock due to multifocal PNA and UTI 5. Acute hypoxic respiratory failure due to PNA and Septic shock - Failed BIPAP- Intubated on 06/12/19 , 6. H/O severe dementia 7. H/O HTN 8. H/O HL 9. SNF resident 10. acute on chronic encephalopathy 11 h/o Dysphagia S/p G tube placement 12. Hypocalcemia 13. UTI with Urine cx growing ESBL Klebsiella Plan: Plan for terminal extubation today BUN/Cr trended down to 81/0.91, Na 145, Hco3= 36 UO 1325 ml/24 hrs Poor candidate for dialysis due to age, comorbidities, consider palliative care follow up and comfort care off all abx now, ID following Ventilator Management as per pulmonary -- not doing well, still requiring high PEEP DNR code status, palliative care consulted on the case Total critical care time spent 30 mins Patient seen in collaboration with Dr Tomas Foster. We will follow up. Consultation Date/Type/Reason Admit Date/Time Jun 10, 2019 at 12:38 Initial Consult Date 06/11/19 Type of Consult NEPHROLOGY Requesting Provider: MALINI GOMEZ Date/Time of Note DATE: 07/06/19 TIME: 12:16 24 HR Interval Summary Free Text/Dictation Remain intubated UO 1325 ml/24 hrs Plan for terminal extubation today- per staff this is patient's son decision no events overnight Subjective hx not possible: pt non-verbal Constitutional: requiring IVF, requiring O2 Exam/Review of Systems Exam Vitals Vital Signs Date Temp Pulse Resp B/P (MAP) Pulse Ox O2 O2 Flow FiO2 Time Delivery Rate 07/06/19 98.4 93 26 135/73 100 Mechanical 12:00 (93) Ventilator 07/06/19 100 07:44 Intake and Output 07/05/19 07/05/19 07/06/19 1515:00 23:00 07:00 IntakeIntake Total 858.052 ml 1109.488 ml 834.552 ml OutputOutput Total 505 ml 400 ml 385 ml BalanceBalance 353.052 ml 709.488 ml 449.552 ml Constitutional: non-verbal, frail Psych: nl mood/affect ENMT: nl external ears & nose Respiratory: crackles/rales, diminished breath sounds Cardiovascular: nl pulses, other (s1s2) Gastrointestinal: soft Musculoskeletal: muscle weakness Extremities: edema Neurological: unresponsive Results Result Diagram: 07/06/19 0400 07/06/19 0400 Results 24hrs Laboratory Tests Test 07/05/19 12:22 07/05/19 16:43 07/05/19 20:37 07/06/19 00:39 Bedside Glucose 183 166 209 203 Test 07/06/19 04:00 07/06/19 05:10 07/06/19 08:20 White Blood Count 12.7 H Red Blood Count 2.40 L Hemoglobin 7.2 L Hematocrit 24.1 L Mean Corpuscular 100.4 Volume Mean Corpuscular 30.0 Hemoglobin Mean Corpuscular 29.9 L Hemoglobin Concent Red Cell 13.9 Distribution Width Platelet Count 115 L Mean Platelet Volume 11.2 H Immature 0.800 H Granulocytes % Neutrophils % 94.1 H Lymphocytes % 2.8 L Monocytes % 2.0 Eosinophils % 0.1 Basophils % 0.2 Nucleated Red Blood 0.0 Cells % Immature 0.100 H Granulocytes # Neutrophils # 12.0 H Lymphocytes # 0.4 L Monocytes # 0.3 Eosinophils # 0.0 Basophils # 0.0 Nucleated Red Blood 0.0 Cells # Sodium Level 145 H Potassium Level 4.3 Chloride Level 108 Carbon Dioxide Level 36 H Anion Gap 1 L Blood Urea Nitrogen 81 H Creatinine 0.91 Est Glomerular Filtrat Rate mL/min Glucose Level 172 Calcium Level 7.9 L Bedside Glucose 211 218 Medications Medication Current Medications IV Flush (NS 3 ml) 3 ml PER PROTOCOL IV ; Start 06/10/19 at 12:00 Ondansetron HCl (Zofran Inj) 4 mg Q6H PRN IV NAUSEA/VOMITING; Start 06/10/19 at 12:00 Acetaminophen (Tylenol Tab) 650 mg Q6H PRN PO .PAIN 1-3 OR TEMP Last administered on 06/13/19at 15:52; Admin Dose 650 MG; Start 06/10/19 at 12:00 Acetaminophen/ Hydrocodone Bitart ([place] (5/325)) 1 tab Q6H PRN PO .PAIN 4-6; Start 06/10/19 at 12:00 Morphine Sulfate (morphine) 2 mg Q4H PRN IV .PAIN 7-10 Last administered on 06/15/19at 16:57; Admin Dose 2 MG; Start 06/10/19 at 12:00 Amiodarone HCl (Cordarone) 100 mg DAILY GTB Last administered on 07/06/19 08:21; Admin Dose 100 MG; Start 06/11/19 at 09:00 Atorvastatin Calcium (Lipitor) 20 mg QHS GTB Last administered on 07/05/19at 20:45; Admin Dose 20 MG; Start 06/10/19 at 21:00 Levetiracetam (Keppra Liquid) 500 mg BID GTB Last administered on 07/06/19 08:20; Admin Dose 500 MG; Start 06/10/19 at 21:00 Olanzapine (Zyprexa) 5 mg DAILY GTB Last administered on 07/06/19 08:22; Admin Dose 5 MG; Start 06/11/19 at 09:00 Polyethylene Glycol (Miralax) 17 gm DAILY GTB Last administered on 07/06/19 08:22; Admin Dose 17 GM; Start 06/11/19 at 09:00 Miscellaneous Information 1 ea NOTE XX ; Start 06/10/19 at 14:00 Glucose (Glutose) 15 gm Q15M PRN PO DECREASED GLUCOSE; Start 06/10/19 at 14:00 Glucose (Glutose) 22.5 gm Q15M PRN PO DECREASED GLUCOSE; Start 06/10/19 at 14:00 Dextrose (D50w Syringe) 25 ml Q15M PRN IV DECREASED GLUCOSE Last administered on 07/04/19at 05:11; Admin Dose 25 ML; Start 06/10/19 at 14:00 Dextrose (D50w Syringe) 50 ml Q15M PRN IV DECREASED GLUCOSE Last administered on 07/02/19at 02:45; Admin Dose 50 ML; Start 06/10/19 at 14:00 Glucagon (Glucagen) 1 mg Q15M PRN IM DECREASED GLUCOSE; Start 06/10/19 at 14:00 Glucose (Glutose) 15 gm Q15M PRN BUCCAL DECREASED GLUCOSE; Start 06/10/19 at 14:00 IV Flush (NS 10 ml) 10 ml [id number] PRN IV Line Patency; Start 06/10/19 at 16:00 Fluvoxamine Maleate (Fluvoxamine Maleate) 25 mg DAILY GTB Last administered on 07/06/19 08:21; Admin Dose 25 MG; Start 06/11/19 at 09:00 Aspirin (Aspirin) 81 mg DAILY PEG Last administered on 07/06/19 08:22; Admin Dose 81 MG; Start 06/11/19 at 09:00 Heparin Sodium (Porcine) (Heparin (5000 Units/1ml)) 5,000 unit Q8 SC Last administered on 06/14/19 06:01; Admin Dose 5,000 UNIT; Start 06/11/19 at 14:00; Status Hold Ipratropium [place] (Atrovent 0.02% (Neb)) 0.5 mg Q4H RESP THERAPY PRN HHN SHORTNESS OF BREATH; Start 06/12/19 at 10:00 Levalbuterol (Xopenex Neb) 1.25 mg Q4H RESP THERAPY PRN HHN shortness of breath; Start 06/12/19 at 10:00 Fentanyl 100 ml @ 2.5 mls/hr TITRATE IV Last administered on 07/06/19 02:11; Admin Dose 7.5 MLS/HR; Start 06/12/19 at 10:00 Levalbuterol (Xopenex Hfa) 4 puff Q6H RESP THERAPY INH Last administered on 07/06/19 07:41; Admin Dose 4 PUFF; Start 06/12/19 at 20:00 Ipratropium [place] (Atrovent Hfa) 4 puff Q6H RESP THERAPY INH Last administered on 07/06/19 07:41; Admin Dose 4 PUFF; Start 06/12/19 at 20:00 Docusate Sodium (Colace Liquid Cup) 100 mg BID GTB Last administered on 07/06/19 08:20; Admin Dose 100 MG; Start 06/14/19 at 12:30 Insulin Aspart (Novolog Insulin Pen) NOVOLOG *MILD* ALGORI... Q4 SC Last administered on 07/06/19 08:23; Admin Dose 3 UNIT; Start 06/16/19 at 21:00 Propofol 100 ml @ 1.656 mls/ hr Q12H IV Last administered on 07/06/19 05:45; Admin Dose 9.936 MLS/HR; Start 06/18/19 at 10:00 Lactobacillus Acidophilus/ Rhamnosus (Culturelle) 1 cap TID PO Last administered on 07/06/19 08:21; Admin Dose 1 CAP; Start 06/18/19 at 21:00 Eye Lubricant (Artificial Tears Oph) 2 drop QID BOTH EYES Last administered on 07/06/19 08:23; Admin Dose 2 DROP; Start 06/23/19 at 09:30 Eye Lubricant (Akwa Oint) 1 applic Q6 BOTH EYES Last administered on 07/06/19 05:10; Admin Dose 1 APPLIC; Start 06/23/19 at 12:00 Potassium Chloride (Potassium Chloride Pwd/Soln) 20 meq PER PROTOCOL PRN GTB POTASSIUM REPLACEMENT PROTOCOL Last administered on 07/05/19 12:16; Admin Dose 20 MEQ; Start 06/21/19 at 09:30 Potassium Chloride (Potassium Chloride Pwd/Soln) 30 meq PER PROTOCOL PRN GTB POTASSIUM REPLACEMENT PROTOCOL Last administered on 06/27/19 21:06; Admin Dose 30 MEQ; Start 06/21/19 at 09:30 Potassium Chloride (Potassium Chloride Pwd/Soln) 40 meq PER PROTOCOL PRN GTB POTASSIUM REPLACEMENT PROTOCOL Last administered on 06/30/19 08:33; Admin Dose 40 MEQ; Start 06/21/19 at 09:30 Hydrocortisone (Solu-Cortef) 20 mg Q8 IV Last administered on 07/06/19 05:09; Admin Dose 20 MG; Start 06/27/19 at 14:00 Caspofungin 50 mg/ Sodium Chloride 250 ml @ 250 mls/hr Q24H IVPB Last administered on 07/05/19 14:18; Admin Dose 250 MLS/HR; Start 07/03/19 at 15:30 Insulin Glargine (Lantus) 8 units DAILY@0800 SC Last administered on 07/06/19 08:21; Admin Dose 8 UNITS; Start 07/05/19 at 08:00 DEEPIKA SERNA Jul 06, 2019 12:19
--- NOTE | 2019-07-06 14:32 | CONS ---
Assessment/Plan Assessment/Plan Hospital Course (Demo Recall) SUBJECTIVE: No acute changes overnight patient is noncommunicative comfortable on vent, no fevers WBC 12.7 platelets 115 neutrophils 94.1 BUN 8 creatinine 0.91 Repeat blood cultures negative. Urine culture repeated on June 30 grew Bridget glabrata Antimicrobials: Cancidas INDWELLINGS: Endotracheal tube, PEG, Dial, PICC line. PHYSICAL EXAMINATION: GENERAL: Chronically ill-appearing, elderly woman in no distress. HEENT: Head atraumatic, normocephalic. NECK: Supple. Trachea midline. CHEST: Rise symmetrical. Breath sounds diminished to bases. HEART: S1, S2. ABDOMEN: Distended. Bowel tones are hypoactive. EXTREMITIES: Without cyanosis. SKIN: Patient has severe anasarca. ASSESSMENT: 1. Leukocytosis, possibly steroid-induced 2. Acute respiratory failure 3. Healthcare associated pneumonia 4. C glabrata UTI 5. Dysphagia 6. Atrial fibrillation and non-ST elevation CT 9. Acute kidney insufficiency 10. Ascites 11. DNR Plan: Clinically unchanged, continue present care, pending family decision regarding goals of care Consultation Date/Type/Reason Admit Date/Time Jun 10, 2019 at 12:38 Initial Consult Date 06/11/19 Type of Consult id Requesting Provider: MALINI GOMEZ Date/Time of Note DATE: 07/06/19 TIME: 14:31 Exam/Review of Systems Exam Vitals Vital Signs Date Temp Pulse Resp B/P (MAP) Pulse Ox O2 O2 Flow FiO2 Time Delivery Rate 07/06/19 98.4 93 26 135/73 100 Mechanical 12:00 (93) Ventilator 07/06/19 80 11:20 Intake and Output 07/05/19 07/05/19 07/06/19 1515:00 23:00 07:00 IntakeIntake Total 858.052 ml 1109.488 ml 834.552 ml OutputOutput Total 505 ml 400 ml 385 ml BalanceBalance 353.052 ml 709.488 ml 449.552 ml Results Result Diagram: 07/06/19 0400 07/06/19 0400 Results 24hrs Laboratory Tests Test 07/05/19 16:43 07/05/19 20:37 07/06/19 00:39 07/06/19 04:00 Bedside Glucose 166 209 203 White Blood Count 12.7 H Red Blood Count 2.40 L Hemoglobin 7.2 L Hematocrit 24.1 L Mean Corpuscular 100.4 Volume Mean Corpuscular 30.0 Hemoglobin Mean Corpuscular 29.9 L Hemoglobin Concent Red Cell 13.9 Distribution Width Platelet Count 115 L Mean Platelet Volume 11.2 H Immature 0.800 H Granulocytes % Neutrophils % 94.1 H Lymphocytes % 2.8 L Monocytes % 2.0 Eosinophils % 0.1 Basophils % 0.2 Nucleated Red Blood 0.0 Cells % Immature 0.100 H Granulocytes # Neutrophils # 12.0 H Lymphocytes # 0.4 L Monocytes # 0.3 Eosinophils # 0.0 Basophils # 0.0 Nucleated Red Blood 0.0 Cells # Sodium Level 145 H Potassium Level 4.3 Chloride Level 108 Carbon Dioxide Level 36 H Anion Gap 1 L Blood Urea Nitrogen 81 H Creatinine 0.91 Est Glomerular Filtrat Rate mL/min Glucose Level 172 Calcium Level 7.9 L Test 07/06/19 05:10 07/06/19 08:20 07/06/19 13:15 Bedside Glucose 211 218 165 Medications Medication Current Medications IV Flush (NS 3 ml) 3 ml PER PROTOCOL IV ; Start 06/10/19 at 12:00 Ondansetron HCl (Zofran Inj) 4 mg Q6H PRN IV NAUSEA/VOMITING; Start 06/10/19 at 12:00 Acetaminophen (Tylenol Tab) 650 mg Q6H PRN PO .PAIN 1-3 OR TEMP Last administered on 06/13/19at 15:52; Admin Dose 650 MG; Start 06/10/19 at 12:00 Acetaminophen/ Hydrocodone Bitart ([place] (5/325)) 1 tab Q6H PRN PO .PAIN 4-6; Start 06/10/19 at 12:00 Morphine Sulfate (morphine) 2 mg Q4H PRN IV .PAIN 7-10 Last administered on 06/15/19at 16:57; Admin Dose 2 MG; Start 06/10/19 at 12:00 Amiodarone HCl (Cordarone) 100 mg DAILY GTB Last administered on 07/06/19at 08:21; Admin Dose 100 MG; Start 06/11/19 at 09:00 Atorvastatin Calcium (Lipitor) 20 mg QHS GTB Last administered on 07/05/19at 20:45; Admin Dose 20 MG; Start 06/10/19 at 21:00 Levetiracetam (Keppra Liquid) 500 mg BID GTB Last administered on 07/06/19 08:20; Admin Dose 500 MG; Start 06/10/19 at 21:00 Olanzapine (Zyprexa) 5 mg DAILY GTB Last administered on 07/06/19 08:22; Admin Dose 5 MG; Start 06/11/19 at 09:00 Polyethylene Glycol (Miralax) 17 gm DAILY GTB Last administered on 07/06/19 08:22; Admin Dose 17 GM; Start 06/11/19 at 09:00 Miscellaneous Information 1 ea NOTE XX ; Start 06/10/19 at 14:00 Glucose (Glutose) 15 gm Q15M PRN PO DECREASED GLUCOSE; Start 06/10/19 at 14:00 Glucose (Glutose) 22.5 gm Q15M PRN PO DECREASED GLUCOSE; Start 06/10/19 at 14:00 Dextrose (D50w Syringe) 25 ml Q15M PRN IV DECREASED GLUCOSE Last administered on 07/04/19at 05:11; Admin Dose 25 ML; Start 06/10/19 at 14:00 Dextrose (D50w Syringe) 50 ml Q15M PRN IV DECREASED GLUCOSE Last administered on 07/02/19at 02:45; Admin Dose 50 ML; Start 06/10/19 at 14:00 Glucagon (Glucagen) 1 mg Q15M PRN IM DECREASED GLUCOSE; Start 06/10/19 at 14:00 Glucose (Glutose) 15 gm Q15M PRN BUCCAL DECREASED GLUCOSE; Start 06/10/19 at 14:00 IV Flush (NS 10 ml) 10 ml [id number] PRN IV Line Patency; Start 06/10/19 at 16:00 Fluvoxamine Maleate (Fluvoxamine Maleate) 25 mg DAILY GTB Last administered on 07/06/19at 08:21; Admin Dose 25 MG; Start 06/11/19 at 09:00 Aspirin (Aspirin) 81 mg DAILY PEG Last administered on 07/06/19 08:22; Admin Dose 81 MG; Start 06/11/19 at 09:00 Heparin Sodium (Porcine) (Heparin (5000 Units/1ml)) 5,000 unit Q8 SC Last administered on 06/14/19at 06:01; Admin Dose 5,000 UNIT; Start 06/11/19 at 14:00; Status Hold Ipratropium [place] (Atrovent 0.02% (Neb)) 0.5 mg Q4H RESP THERAPY PRN HHN SHORTNESS OF BREATH; Start 06/12/19 at 10:00 Levalbuterol (Xopenex Neb) 1.25 mg Q4H RESP THERAPY PRN HHN shortness of breath; Start 06/12/19 at 10:00 Fentanyl 100 ml @ 2.5 mls/hr TITRATE IV Last administered on 07/06/19 02:11; Admin Dose 7.5 MLS/HR; Start 06/12/19 at 10:00 Levalbuterol (Xopenex Hfa) 4 puff Q6H RESP THERAPY INH Last administered on 07/06/19 07:41; Admin Dose 4 PUFF; Start 06/12/19 at 20:00 Ipratropium [place] (Atrovent Hfa) 4 puff Q6H RESP THERAPY INH Last administered on 07/06/19 07:41; Admin Dose 4 PUFF; Start 06/12/19 at 20:00 Docusate Sodium (Colace Liquid Cup) 100 mg BID GTB Last administered on 07/06/19 08:20; Admin Dose 100 MG; Start 06/14/19 at 12:30 Insulin Aspart (Novolog Insulin Pen) NOVOLOG *MILD* ALGORI... Q4 SC Last administered on 07/06/19 13:24; Admin Dose 1 UNIT; Start 06/16/19 at 21:00 Propofol 100 ml @ 1.656 mls/ hr Q12H IV Last administered on 07/06/19 05:45; Admin Dose 9.936 MLS/HR; Start 06/18/19 at 10:00 Lactobacillus Acidophilus/ Rhamnosus (Culturelle) 1 cap TID PO Last ad ministered on 07/06/19 13:08; Admin Dose 1 CAP; Start 06/18/19 at 21:00 Eye Lubricant (Artificial Tears Oph) 2 drop QID BOTH EYES Last administered on 07/06/19 13:08; Admin Dose 2 DROP; Start 06/23/19 at 09:30 Eye Lubricant (Akwa Oint) 1 applic Q6 BOTH EYES Last administered on 07/06/19 13:08; Admin Dose 1 APPLIC; Start 06/23/19 at 12:00 Potassium Chloride (Potassium Chloride Pwd/Soln) 20 meq PER PROTOCOL PRN GTB POTASSIUM REPLACEMENT PROTOCOL Last administered on 07/05/19 12:16; Admin Dose 20 MEQ; Start 06/21/19 at 09:30 Potassium Chloride (Potassium Chloride Pwd/Soln) 30 meq PER PROTOCOL PRN GTB POTASSIUM REPLACEMENT PROTOCOL Last administered on 06/27/19 21:06; Admin Dose 30 MEQ; Start 06/21/19 at 09:30 Potassium Chloride (Potassium Chloride Pwd/Soln) 40 meq PER PROTOCOL PRN GTB P OTASSIUM REPLACEMENT PROTOCOL Last administered on 06/30/19 08:33; Admin Dose 40 MEQ; Start 06/21/19 at 09:30 Hydrocortisone (Solu-Cortef) 20 mg Q8 IV Last administered on 07/06/19 13:08; Admin Dose 20 MG; Start 06/27/19 at 14:00 Caspofungin 50 mg/ Sodium Chloride 250 ml @ 250 mls/hr Q24H IVPB Last administered on 07/05/19 14:18; Admin Dose 250 MLS/HR; Start 07/03/19 at 15:30 Insulin Glargine (Lantus) 8 units DAILY@0800 SC Last administered on 07/06/19 08:21; Admin Dose 8 UNITS; Start 07/05/19 at 08:00 JACKIE BRUNNER NP Jul 06, 2019 14:32
[2019-07-06] MEDS: CASPOFUNGIN 50 MG in SOD CHLORIDE 0.9% 250 ML IVPB SCH (15:03)
[2019-07-06] MEDS ORDERED: DIMETHICONE STICK TOP PRN (16:30)
[2019-07-06] MEDS ORDERED: SCOPOLAMINE 1.5 MG PATCH TRANSDERM SCH (16:30)
[2019-07-06] MEDS ORDERED: LORAZEPAM 2 MG INJ IV PRN (16:30)
[2019-07-06] MEDS ORDERED: morphine LIQ (10 MG/5 ML) CUP PO ONE (16:30)
[2019-07-06] MEDS ORDERED: ARTIFICIAL TEARS 15 ML OPH BOTH EYES PRN (16:30)
[2019-07-06] MEDS ORDERED: LORAZEPAM 2 MG INJ IV ONE (16:30)
[2019-07-06] MEDS ORDERED: morphine (DRIP) 100 MG/100 ML 100 ML IV SCH ×2 (16:30)
--- NOTE | 2019-07-06 19:50 | DES ---
Date/Time of Note Date/Time of Note DATE: 07/06/19 TIME: 19:23 Discharge/ Summary Admission/Discharge Info Admit Date/Time Jun 10, 2019 at 12:38 Date/Time 07/06/19 at 1754 Final Diagnosis ARDS Preliminary Cause of Multifocal MRSA pneumonia, chronic encephalopathy Admit History Patient is a elderly Irish female with a past medical history significant for end-stage dementia, being nonverbal, bedridden, hypertension, A. fib, COPD, diabetes mellitus, dyslipidemia who presents to [facility] from long-term facility for worsening shortness of breath. Pulse ox initially was 80%, currently patient is on BiPAP. Patient is baseline encephalopathic and being nonverbal according to family. Further HPI cannot be given as patient mental status is severely compromised chronically. Hospital Course Patient was found in septic shock and admitted to ICU for close monitoring on BIPAP. She was found with NSTEMI at time of admission and Cardiology was consulted. She was also found with multifocal pneumonia and ID as well as Pulmonology were consulted for assistance with management. She was started on IV antibiotics and due to persistent hypotension, was started on pressor support as well. Neurology was consulted as well given patients history of chronic encephalopathy with no acute issues noted on imaging results. Nephrology was consulted as well given acute renal failure. Patient was found with ARDS secondary to MRSA and placed of high PEEP with some improvement in her saturations. She was also noted with worsening anasarca and started on Bumex drips with some improvement in her anasarca. Patient was able to be weaned off pressors support. However, respiratory status continued to decline and did not tolerate sedation vacations. Patient was developing abdominal distension which was most likely worsening her respiratory status but was due to anasarca. Discussion was held with the family and they were agreeable to DNR/DNI code change. After long discussion about need to proceed with trach vs comfort measures, spokes person decided on comfort measures. Patient underwent compassionate extubated and on 07/06 at 1754. Family was at bedside and all needs addressed. Pending Labs/Cultures Laboratory Tests Test 07/05/19 20:37 07/06/19 00:39 07/06/19 04:00 07/06/19 05:10 Bedside 209 203 211 Glucose mg/dL (70-220) mg/dL (70-220) mg/dL (70-220) White Blood 12.7 Count 10^3/ul (4.8-1 0.8) Red Blood 2.40 Count 10^6/ul (4.20- 5.40) Hemoglobin 7.2 g/dl (12.0-16. 0) Hematocrit 24.1 % (37.0-47.0) Mean 100.4 Corpuscular fl (82.0-101.0 Volume ) Mean 30.0 Corpuscular pg (29.0-33.0) Hemoglobin Mean 29.9 Corpuscular g/dl (32.0-37. Hemoglobin Conc 0) ent Red Cell 13.9 Distribution % (11.5-14.5) Width Platelet Count 115 10^3/UL (140-4 15) Mean Platelet 11.2 Volume fl (7.4-10.4) Immature 0.800 Granulocytes % % (0.001-0.429 ) Neutrophils % 94.1 % (39.0-77.0) Lymphocytes % 2.8 % (15.0-51.0) Monocytes % 2.0 % (0.0-11.0) Eosinophils % 0.1 % (0.0-7.0) Basophils % 0.2 % (0.0-2.0) Nucleated Red 0.0 Blood Cells % /100WBC (0.0-0 .0) Immature 0.100 Granulocytes # 10^3/ul (0.0-0 .031) Neutrophils # 12.0 10^3/ul (1.6-7 .5) Lymphocytes # 0.4 10^3/ul (0.8-2 .9) Monocytes # 0.3 10^3/ul (0.3-0 .9) Eosinophils # 0.0 10^3/ul (0.0-0 .5) Basophils # 0.0 10^3/ul (0.0-0 .1) Nucleated Red 0.0 Blood Cells # 10^3/ul (0.0-0 .0) Sodium Level 145 mmol/L (135-14 4) Potassium 4.3 Level mmol/L (3.5-5. 1) Chloride Level 108 mmol/L (97-110 ) Carbon Dioxide 36 Level mmol/L (21-31) Anion Gap 1 (5-13) Blood Urea 81 Nitrogen mg/dl (7-20) Creatinine 0.91 mg/dl (0.44-1. 00) Est Glomerular mL/min (>60) Filtrat Rate mL/min Glucose Level 172 mg/dl (70-220) Calcium Level 7.9 mg/dl (8.4-10. 2) Test 07/06/19 08:20 07/06/19 13:15 Bedside 218 165 Glucose mg/dL (70-220) mg/dL (70-220) SHENG DONNELLY MD Jul 06, 2019 19:50
== END 2019-07-06 17:54 | disposition expired | DRG 870 ==
LOC: E/R 09:54 → MERGE 12:38 → ICU 12:38 → EDBEDREQ 13:43 → EDBEDREQSVC 13:43
PROVIDERS: ADMIT Internal Medicine; ATTEND Internal Medicine
PROC: 02HV33Z Insertion of Infusion Device into Superior Vena Cava, Percutaneous Approach (ICD-10-PCS; principal; 2019-06-10)
PROC: 5A1955Z Respiratory Ventilation, Greater than 96 Consecutive Hours (ICD-10-PCS; 2019-06-12)
PROC: 0BH17EZ Insertion of Endotracheal Airway into Trachea, Via Natural or Artificial Opening (ICD-10-PCS; 2019-06-12)
PROC: 30233N1 Transfusion of Nonautologous Red Blood Cells into Peripheral Vein, Percutaneous Approach (ICD-10-PCS; 2019-06-23)
DX: A41.9 Sepsis, unspecified organism (principal); J15.212 Pneumonia due to Methicillin resistant Staphylococcus aureus; J80 Acute respiratory distress syndrome; I21.4 Non-ST elevation (NSTEMI) myocardial infarction; G92 Toxic encephalopathy; N17.0 Acute kidney failure with tubular necrosis; R65.21 Severe sepsis with septic shock; B37.49 Other urogenital candidiasis; E87.0 Hyperosmolality and hypernatremia; R64 Cachexia; I12.0 Hypertensive chronic kidney disease with stage 5 chronic kidney disease or end stage renal disease; G91.9 Hydrocephalus, unspecified; E87.2 Acidosis; K94.23 Gastrostomy malfunction; D63.8 Anemia in other chronic diseases classified elsewhere; D69.6 Thrombocytopenia, unspecified; D49.6 Neoplasm of unspecified behavior of brain; B96.1 Klebsiella pneumoniae [K. pneumoniae] as the cause of diseases classified elsewhere; E87.5 Hyperkalemia; E86.0 Dehydration; E11.65 Type 2 diabetes mellitus with hyperglycemia; E11.22 Type 2 diabetes mellitus with diabetic chronic kidney disease; E87.8 Other disorders of electrolyte and fluid balance, not elsewhere classified; E78.5 Hyperlipidemia, unspecified; E83.51 Hypocalcemia; F39 Unspecified mood [affective] disorder; F41.9 Anxiety disorder, unspecified; F03.90 Unspecified dementia, unspecified severity, without behavioral disturbance, psychotic disturbance, mood disturbance, and anxiety; I95.9 Hypotension, unspecified; I48.2 Chronic atrial fibrillation; J44.9 Chronic obstructive pulmonary disease, unspecified; K21.9 Gastro-esophageal reflux disease without esophagitis; N18.3 Chronic kidney disease, stage 3 (moderate); R13.10 Dysphagia, unspecified; R62.7 Adult failure to thrive; R60.1 Generalized edema; Z66 Do not resuscitate; Z16.12 Extended spectrum beta lactamase (ESBL) resistance; Z98.2 Presence of cerebrospinal fluid drainage device; Z68.21 Body mass index [BMI] 21.0-21.9, adult; Z79.4 Long term (current) use of insulin; Z79.82 Long term (current) use of aspirin; Z74.01 Bed confinement status
CPT/HCPCS: 31500; 36430; 36569; 36600; 70450; 71045; 74018; 76705; 80048; 80053; 80061; 80069; 80202; 81001; 81003; 82150; 82330; 82803; 82962; 83036; 83605; 83690; 83735; 83880; 84100; 84132; 84443; 84484; 85014; 85018; 85025; 85049; 85362; 85378; 85384; 85610; 85670; 85730; 86022; 86850; 86900; 86901; 86920; 87070; 87075; 87081; 87086; 89220; 93005; 93306; 94002; 94003; 94640; 94660; 94664; 94770; 96372; 96374; 96375; J0282; J0610; J0692; J1644; J1720; J1815; J1940; J2060; J2185; J2250; J2270; J2370; J2543; J3010; J3370; J3480; J7030; J7040; J7042; J7050; J7060; J7070; P9016; P9047